=== PATIENT | female | born 1935 | race Caucasian/White ===

== ENCOUNTER 2017-06-11 16:37 | Inpatient (IN) | payer MEDICARE, BC ==
[2017-06-11 17:43] LABS: Hematocrit 40.6 % (36.0-47.0); Mean Platelet Volume 7.3 fL (7.4-10.4); White Blood Cell (WBC) Count 19.4 thou/uL (4.8-10.8)
[2017-06-11 17:50] LABS: Prothrombin Time 13.8 SEC (12.0-14.7)
[2017-06-11 18:05] LABS: Band 8 % (5-11); Neutrophil 57 % (42-75); Reactive Lymphocytes 6 % (0-10)
[2017-06-11 18:06] LABS: ALT (SGPT) 12 U/L (8-55); AST (SGOT) 15 U/L (5-34); Alkaline Phosphatase 114 U/L (40-150); Anion Gap 15 mmol/L (10-20); BUN (Urea Nitrogen) 55 mg/dL (9.8-20.1); Bilirubin, Total 0.3 mg/dL (0.2-1.2); CK (CPK) 115 U/L (29-168); Calc. Creatinine Clearance 0 mL/min (70-130); Calcium 9.7 mg/dL (7.8-10.44); Carbon Dioxide 28 mmol/L (23-31); Chloride 99 mmol/L (98-107); Estimated GFR-MDRD 27; Globulin 4.3 g/dL (2.4-3.5); Lipase 17 U/L (8-78); Protein, Total 8.4 g/dL (6.0-8.3)
[2017-06-11 18:10] LABS: Troponin I Less than 0.010 ng/mL (< 0.028)
[2017-06-11] MEDS ORDERED: Dextrose 50% Abboject 50 ML SYRINGE ONE (18:16)
[2017-06-11] MEDS ORDERED: Nitroglycerin 2% Ointment 1 INCH/1 GM Packet ONE (18:33)
[2017-06-11 18:42] LABS: Bilirubin Negative (Negative); Blood, Urine Negative (Negative); Glucose, Urine (Dipstick) Negative (Negative); Ketone, Urine Negative (Negative); Nitrite Negative (Negative); Protein, Urine (Dipstick) Negative (Neg-Trace); Urobilinogen 0.2 mg/dL (0.2-1.0)
[2017-06-11 18:44] LABS: Bacteria/HPF None Seen HPF (None Seen); Hyaline Casts/LPF 0-3 HYALINE CAST LPF (0-3 Hyaline); RBC/HPF 0-3 HPF (0-3); Squamous Epithelial 0-3 HPF (0-3)
[2017-06-11 18:53] LABS: Yeast-All Forms None Seen HPF (None Seen)
--- NOTE | 2017-06-11 19:05 | RAD ---
PORTABLE CHEST: 06/11/17 HISTORY: Shortness of breath. Chest wall discomfort after PICC line pulled out. The heart size is enlarged. There are atherosclerotic changes of the aorta. The lungs are clear of i nfiltrates. I do not see any signs of any residual PICC line or any soft tissue abnormalities. IMPRESSION: Cardiomegaly. No acute findings. POS: [facility]
[2017-06-11] MEDS ORDERED: traMADol HCl 50 MG TAB ONE ×2 (20:32→20:35)
[2017-06-11] MEDS ORDERED: Morphine 2 MG/ML SYRINGE ONE (21:37)
[2017-06-11] MEDS ORDERED: Nitroglycerin 0.4 MG TAB (25 Tab Bottle) SL PRN (21:42)
[2017-06-11] MEDS ORDERED: Bisacodyl 5 MG TAB PO PRN ×2 (21:42)
[2017-06-11] MEDS ORDERED: Senokot 8.6 MG TAB PO PRN ×2 (21:42)
[2017-06-11] MEDS ORDERED: Milk Of Magnesia 30 ML UDCUP PO PRN (21:42)
[2017-06-11] MEDS ORDERED: Dextrose 50% Abboject 50 ML SYRINGE SLOW IVP PRN (21:42)
[2017-06-11] MEDS ORDERED: cloNIDine 0.1 MG TAB PO PRN (21:42)
[2017-06-11] MEDS ORDERED: Guaifenesin DM 100-10/5 ML UDCUP PO PRN (21:42)
[2017-06-11] MEDS ORDERED: Benzonatate 100 MG CAP PO PRN (21:42)
[2017-06-11] MEDS ORDERED: Mag-Al 1200 mg/1200 mg/30 ML UDCUP PO PRN (21:42)
[2017-06-11] MEDS ORDERED: Loratadine 10 MG TAB PO PRN (21:42)
[2017-06-11] MEDS ORDERED: hydrALAZINE 20 MG/ML VIAL SLOW IVP PRN (21:42)
[2017-06-11] MEDS ORDERED: Calcium Carbonate 500 MG ChewTAB PO PRN (21:42)
[2017-06-11] MEDS ORDERED: Dextrose 5% in Water 1,000 ML IV PRN (21:42)
[2017-06-11] MEDS ORDERED: Potassium Chloride 20 MEQ TAB PO SCH (22:00)
[2017-06-11 22:10] LABS: Troponin I Less than 0.010 ng/mL (< 0.028)
[2017-06-11] MEDS ORDERED: cefTRIAXone\\ROCEPHIN 1 GM, Admixture Fee 1 EACH in Sodium Chloride 0.9% 100 ML IVPB SCH (23:00)
--- NOTE | 2017-06-11 23:00 | NM ---
NUCLEAR MEDICINE LUNG SCAN: 06/11/17 HISTORY: Shortness of breath, chest pain. COMPARISON: A chest x-ray done today. The ventilation portion of the exam was performed using 14.4 millicuries Xenon 133 gas followed by t he perfusion study using 22 millicuries 99m technetium MAA. This shows a normal ventilation pattern. There is no evidence of any segmental or subsegmental defects in either lung field. IMPRESSION: Findings compatible with the low probability of pulmonary embolus. POS: [facility]
[2017-06-11] MEDS ORDERED: cefTRIAXone\\ROCEPHIN 2 GM VIAL ONE ×2 (23:18→23:19)
[2017-06-12 00:03] LABS: Troponin I Less than 0.010 ng/mL (< 0.028)
[2017-06-12] MEDS: traMADol HCl 50 MG TAB PO PRN ×5 (00:32→17:33)
[2017-06-12] MEDS: Acetaminophen 325 MG TAB PO PRN (00:33)
[2017-06-12] MEDS: traZODone HCl 50 MG TAB PO PRN (00:34)
[2017-06-12] MEDS ORDERED: Bisacodyl 5 MG TAB PO PRN (01:17)
[2017-06-12] MEDS ORDERED: cefTRIAXone\\ROCEPHIN 1 GM, Admixture Fee 1 EACH in Sodium Chloride 0.9% 100 ML IVPB SCH (02:00)
[2017-06-12] MEDS: Acetaminophen 500 MG TAB PO SCH ×3 (05:05→21:15)
[2017-06-12] MEDS: Levothyroxine Sodium 50 MCG TAB PO SCH (05:05)
[2017-06-12 06:12] LABS: #Eosinphils 0.1 thou/uL (0.0-0.7); #Lymphocytes 2.1 thou/uL (1.20-3.40); #Monocytes 0.8 thou/uL (0.11-0.59); #Neutrophils 5.2 thou/uL (1.40-6.50); %Basophils 0.4 % (0.0-1.0); %Lymphocytes 25.3 % (21.0-51.0); Hematocrit 33.6 % (36.0-47.0); Mean Platelet Volume 6.8 fL (7.4-10.4); White Blood Cell (WBC) Count 8.3 thou/uL (4.8-10.8)
[2017-06-12 06:41] LABS: Anion Gap 10 mmol/L (10-20); BUN (Urea Nitrogen) 49 mg/dL (9.8-20.1); Calc. Creatinine Clearance 40 mL/min (70-130); Calcium 9.3 mg/dL (7.8-10.44); Carbon Dioxide 31 mmol/L (23-31); Chloride 100 mmol/L (98-107); Estimated GFR-MDRD 36
[2017-06-12] MEDS ORDERED: Clobetasol 0.05% Cream 15 gm Tube TOP SCH (09:00)
--- NOTE | 2017-06-12 09:01 | HP ---
DATE OF ADMISSION: 06/11/2017 PRIMARY CARE PHYSICIAN: Robi Dillon MD Please note that the patient was seen on 06/11/2017, before midnight. CHIEF COMPLAINT: Chest pain and shortness of breath. HISTORY OF PRESENTING ILLNESS: Ms. Ivory is an 81-year-old female with past medical history of celso stolic congestive heart failure, diabetes mellitus, hypertension, coronary artery disease, and chron ic kidney disease who presented to the emergency room with the above-mentioned complaints. History is mainly obtained by the patient herself an extensive electronic medical records have been reviewed . The patient was last admitted to our facility in 01/2017, at which time, she was treated with acu te diastolic congestive heart failure exacerbation. She was discharged on Zaroxolyn at that time. The patient's primary cloth finishing range operator is Dr. Lynch. Ms. Ivory lives alone and presented to the ER today when she states that she woke up with a lot of chest pressure and pain this morning. She has history of chronic back pain and follows up with her primary care physician as well as pain medication clinic. She takes tramadol, Tylenol, as well as N eurontin for what she reports is a neuropathic pain. She does get this kind of pain on and off, but the pain that she had today was different from all the other pains. She describes it as 8/10 in in tensity and located all over her chest, worse in the right side of the chest that the left and she c ould not find any relieving or exacerbating factors. It was associated with some shortness of breat h, but then the patient reports that \\\\"I am always short of breath.\\\\" She felt her symptoms were worse when she would take a deep breath in or lays flat. She denies any fever, chills, or cough. S he denies any orthopnea or PND. She denies any excessive lower extremity swelling. She was recently admitted to [facility] and was treated for a toe infection on the lef t leg and underwent a toe amputation and was sent home with a PICC line to finish the course of anti biotics. She has finished the vancomycin on 06/09/2017, and is still taking metronidazole three bethany es a day orally. She denies any abdominal pain, diarrhea, vomiting, or nausea. She denies any dysu martha, frequency, or urgency. In the emergency room, she was hemodynamically stable upon presentation with blood pressure of 126/7 3, pulse of 80, saturating 95% on room air, and afebrile. Her physical examination was also rather unremarkable except for chronic lower extremity erythema. Her EKG showed left ventricular hypertrop hy, otherwise unremarkable. Her urinalysis was consistent with some leukocyte esterase and wbcs, bu t rest of her examination was unremarkable. She did have elevated WBC count at 19.4 without any lef t shift and given the fact that her urinalysis has pyuria, she was given antibiotics in the ER, name pepe Jacobo. Her initial cardiac enzymes and BNP have been normal as well. She did report that she took extra dose of insulin this morning as her blood sugars were reading kenyetta y high in the 400s. In fact, when she presented to the ER, her blood sugar was 29. She received de xtrose and was treated for this and her blood sugar improved to 117. She was also found to have debi vated D-dimer and underwent a VQ scan, which is low probability for pulmonary embolism. A CT angio was not done given her chronic kidney insufficiency. Now, she is being admitted for chest pain workup as well as treatment for a urinary tract infection. PAST MEDICAL HISTORY: 1. Mild aortic stenosis. 2. Hypertension. 3. Coronary artery disease with stent placement. 4. Hypothyroidism. 5. Dyslipidemia. 6. Diabetes mellitus, type 2. 7. Diabetic neuropathy. 8. Chronic kidney disease, stage 3. 9. Paroxysmal atrial fibrillation. 10. Recent toe amputation on the left second toe for possible osteomyelitis. PAST SURGICAL HISTORY: 1. Left second toe amputation. 2. Appendectomy. 3. Cataract surgery. 4. Left total knee replacement. 5. Hysterectomy. 6. Cardiac catheterization with stent placement. PAST PSYCHIATRIC HISTORY: Anxiety and depression. ALLERGIES: No known medication allergies. FAMILY HISTORY: Significant for breast cancer in her mother. Both of her kids in the 40s. He r daughter in her 40s of breast cancer and her son in his 40s of colon cancer. SOCIAL HISTORY: The patient is and lives by herself in [place], [place]. She ambulates with a rolling walker. She has care provider round the clock. No history of drug, tobacco, or alcohol abu se. CURRENT MEDICATIONS: Include aspirin 81 mg daily, Plavix 75 mg daily, tramadol 100 mg every 6 hours as needed, omeprazole 40 mg daily, potassium chloride 20 mEq daily, Ativan 0.5 mg p.o. b.i.d., Vel daija 24 mcg p.o. b.i.d., gabapentin 600 mg p.o. b.i.d., levothyroxine 175 mcg daily, vitamin D3 of 50 00 daily, ferrous sulfate 65 mg daily, atorvastatin 10 mg daily, Dulcolax as needed, amiodarone 200 mg daily, Zaroxolyn 5 mg weekly then diclofenac eyedrops, eyedrops, Tresiba insulin, insulin 7 01/14 of unknown dose b.i.d., Nitrostat as sublingual as needed, Zofran as needed, metronidazole 500 mg p.o. t.i.d. REVIEW OF SYSTEMS: It is negative except for those mentioned in the history and physical. The following complete review of systems was negative, unless otherwise mentioned in the HPI or belo w: Constitutional: Weight loss or gain, ability to conduct usual activities. Skin: Rash, itching. Eyes: Double vision, pain. ENT/Mouth: Nose bleeding, neck stiffness, pain, tenderness. Cardiovascular: Palpitations, dyspnea on exertion, orthopnea. Respiratory: Shortness of breath, wheezing, cough, hemoptysis, fever or night sweats. Gastrointestinal: Poor appetite, abdominal pain, heartburn, nausea, vomiting, constipation, or diar renetta. Genitourinary: Urgency, frequency, dysuria, nocturia. Musculoskeletal: Pain, swelling. Neurologic/Psychiatric: Anxiety, depression. Allergy/Immunologic: Skin rash, bleeding tendency. LABORATORY EXAMINATION AND DIAGNOSTICS: 1. CBC shows WBCs of 19.4 with 57% neutrophils, otherwise unremarkable. D-dimer 1.16. 2. Serum chemistries show potassium of 3.2, BUN 55, creatinine 1.80, blood sugar improved to 94. L iver enzymes unremarkable. Cardiac enzymes: CK-MB 3.4, troponin less than 0.010. BNP of 79, lipas e 17. 3. Urinalysis showed 11 to 20 wbc's and leukocyte esterase. Chest x-ray by my review has no eviden ce of pulmonary vascular congestion, no congestive heart failure pneumonia. Pulmonary VQ scan is lo w probability for pulmonary embolism. 4. A 12-lead EKG by my review shows left ventricular hypertrophy, heart rate 74 beats per minute wi thout any acute ST or T-wave findings. PHYSICAL EXAMINATION: VITAL SIGNS: Most recently, blood pressure 142/62, pulse of 68, respirations 18, saturating 97% on room air, temperature 98 degrees. GENERAL: Orally, upon presentation, physical examination, in no acute distress, awake, alert, orien samuel x3. She is eating food in the bed and when I saw her and is awake, alert, oriented x3, does not appear sick or toxic. HEENT EXAMINATION: Mucous membrane is moist and pink. No oropharyngeal exudate or erythema. Head is normocephalic, atraumatic. Pupils are equal, reactive to light and accommodation. Extraocular m ovements intact. NECK: Supple without any lymphadenopathy, JVD, or bruit. CHEST: Clear to auscultation without any wheezing, rales, or rhonchi. CARDIOVASCULAR: Rate and rhythm is regular. She has a high pitched systolic murmur at the left hea rt border. ABDOMEN: Soft, nontender, and nondistended. No guarding, rebound, or rigidity. BACK: Shows marked kyphosis of the thoracic spine. EXTREMITIES EXAMINATION: Bilateral lower extremity edema noticed, which is chronic for the patient along with erythema without any warmth. Left second toe is on the bandage. She also has a bandage on her right maguire, which she reports was bleeding earlier in the ER. SKIN: Free of any rashes or bruises, feels warm and dry to touch. PSYCHIATRIC: Alert, oriented to person, normal affect. IMPRESSION AND PLAN: 1. Chest pain. Etiology is unclear at this time. Pulmonary embolism has been ruled out. We will do lower extremity ultrasound for completion sake as the patient was recently hospitalized. No evid ence of pneumonia and the likelihood of acute coronary syndrome is low as well. Given her history o f coronary artery disease, we will continue her aspirin and Plavix and consult Cardiology in the [facility] for further recommendations. She may benefit from a stress test, but we will defer it to the C ardiology for now. The patient's primary cloth finishing range operator is Dr. Lynch. Please note that the patient is somewhat tender on palpation in the entire chest. We will also continue to trend her serial card iac enzymes. 2. Lingual nitroglycerin as needed as well as supplemental oxygen. It is possible that this pain i s referred pain from her neuropathy from which the patient's symptoms greatly. 3. Leukocytosis. The patient may have starting of urinary tract infection as evidenced by pyuria. She does report that she has finished antibiotic with her toe infection and it was reported that he r margins were clear by the [facility] physician. At this time, we will put her on antibiotic with Rocephin to cover for urinary tract infection. Urine cultures and blood cultures have been sen t. These will be followed as well. The patient otherwise appears nontoxic. 4. Hypoxia. The patient had 1 or 2 episodes of low oxygen saturation in the emergency room as low as 90%. Pulmonary embolism has been ruled out. The patient does not appear to be fluid overloaded, but has history of diastolic congestive heart failure. At this time, we will restart her on Zaroxo bernadette at home dosages. Strict I's and O's will be monitored and she will be on fluid restricted heart healthy diet. No other etiology of hypoxia is evident at this time. It can also be anxiety relate d. Supplemental oxygen will be used. We will recheck the chest x-ray in a day or so. 5. Elevated D-dimer as above. Pulmonary embolism has been ruled out with the VQ scan. We will als o perform a lower extremity ultrasound to rule out deep venous thrombosis. 6. History of coronary artery disease, status post stenting. Continue her home medications as abov e. 7. History of chronic diastolic congestive heart failure. The patient appears to be euvolemic at t his time. We will continue with Zaroxolyn weekly dose and will go ahead and consult Cardiology in c ase she needs further diuresis and their opinion. 8. History of hypertension, currently controlled. We will resume her home medications. 9. History of dyslipidemia. Continue with her statin. 10. History of chronic kidney disease. Monitor the creatinine closely and avoid any nephrotoxic me dications. It seems like the patient has been taken off of furosemide in the interim since her last admission here. Her creatinine is slightly bumped up from her baseline. 11. Hypokalemia. We will replace and recheck on a daily basis. 12. Code status: FULL CODE. I have discussed this with the patient and she wants to be fully resu scitated. She reports that she has three great grandkids and wants to be alive for them. 13. Deep venous thrombosis and gastrointestinal prophylaxis. 14. Add p.r.n. medication orders. 15. Paroxysmal atrial fibrillation. At this time, the patient is rate controlled and in normal sin us rhythm. We will continue with her amiodarone at the moment. DISPOSITION: The patient is currently being admitted for chest pain and hypoxia and urinary tract i nfection. Estimated length of stay is at least 2 to 3 midnight. Further management will depend upo n her clinical course.
[2017-06-12] MEDS: Clopidogrel Bisulfate 75 MG TAB PO SCH (09:44)
[2017-06-12] MEDS: Lorazepam 0.5 MG TAB PO SCH ×2 (09:44→20:26)
[2017-06-12] MEDS: Gabapentin 300 MG CAP PO SCH ×2 (09:44→20:26)
[2017-06-12] MEDS: Aspirin 81 mg Enteric Coated Tablet PO SCH (09:45)
[2017-06-12] MEDS: Ferrous Sulfate 325 MG TAB PO SCH (09:45)
[2017-06-12] MEDS: Potassium Chloride 20 MEQ TAB PO SCH (09:45)
[2017-06-12] MEDS: metroNIDAZOLE 500 MG TAB PO SCH ×3 (09:45→20:26)
[2017-06-12] MEDS: Heparin 5,000 UNITS/ML VIAL SC SCH ×3 (09:51→20:27)
--- NOTE | 2017-06-12 09:52 | ULT ---
ULTRASOUND BILATERAL LOWER EXTREMITY VENOUS DOPPLER: HISTORY: Swelling and redness. COMPARISON: 05/03/14. TECHNIQUE: Real-time, simmons scale, color Doppler, and spectral analysis of bilateral lower extremity venous syst em was performed with a linear transducer. Common femoral, femoral, and proximal portion greater sa phenous and deep femoral veins were interrogated as well as the popliteal and posterior tibial veins . FINDINGS: Normal flow, augmentation, and compression. IMPRESSION: No deep vein thrombosis. POS: [facility]
[2017-06-12] MEDS: Lubiprostone 24 MCG CAP PO SCH ×2 (09:59→17:49)
[2017-06-12] MEDS ORDERED: Non-Formulary Item 1 EACH (Ondansetron Hcl [Zofran] 4 MG) PO PRN (12:54)
--- NOTE | 2017-06-12 12:57 | PDOC.PN ---
- Subjective Encounter Start Date: 06/12/17 Encounter Start Time: 12:45 Subjective: c/o burning over torso and nasal congestion. Also c/o generalized pain -: Admitted for UTI and SOB receiving Rocephin and Metronidazole. - Objective Resuscitation Status: Resuscitation Status FULL:Full Resuscitation MAR Reviewed: Yes Vital Signs & Weight: Vital Signs (12 hours) Temp Pulse Resp BP BP Pulse Ox 06/12/17 09:25 97.6 F 72 18 140/66 93 L 06/12/17 04:00 98.3 F 73 18 113/56 L 93 L 06/12/17 01:14 96 Weight Admit Weight 177 lb 8 oz Weight 177 lb 8 oz I&O: 06/11/17 06/12/17 06/13/17 06:59 06:59 06:59 Intake Total 360 Output Total 320 Balance 40 Result Diagrams: 06/12/17 05:38 06/12/17 05:38 Additional Labs: Accuchecks 06/12/17 06/12/17 06/11/17 06:16 00:28 23:28 POC Glucose 150 H 280 H 131 H 06/11/17 06/11/17 21:28 20:40 POC Glucose 82 96 Laboratory Tests 06/11/17 06/11/17 06/11/17 16:54 16:54 16:54 Potassium 3.2 L Creatinine 1.80 H Troponin I Less than 0.010 B-Natriuretic Peptide 79.5 06/11/17 06/11/17 21:33 22:57 Potassium Creatinine Troponin I Less than 0.010 Less than 0.010 B-Natriuretic Peptide EKG Reviewed by me: Yes (Tele - SR in 60's) Phys Exam - Physical Examination Constitutional: NAD HEENT: PERRLA, oral pharynx no lesions Neck: no JVD, supple Respiratory: no wheezing, clear to auscultation bilateral Cardiovascular: RRR Gastrointestinal: soft, non-tender, no distention, positive bowel sounds mild LE edema Musculoskeletal: pulses present Neurological: normal sensation, moves all 4 limbs Psychiatric: A&O x 3 Skin: normal turgor, cap refill <2 seconds Dx/Plan (1) UTI (urinary tract infection) Status: Acute Qualifiers: Urinary tract infection type: acute cystitis Comment: Continue Rocephin 1gm IV daily, await final Ucx results (2) ANUM (acute kidney injury) Code(s): N17.9 - ACUTE KIDNEY FAILURE, UNSPECIFIED Status: Acute Comment: Mild ANUM, avoid nephrotoxic meds and contrast media, repeat creat in am (3) Paresthesias Code(s): R20.2 - PARESTHESIA OF SKIN Status: Chronic Comment: ? etiology, likely psychogenic, Benadryl prn (4) Acute worsening of stage 3 chronic kidney disease Code(s): N18.3 - CHRONIC KIDNEY DISEASE, STAGE 3 (MODERATE) Status: Chronic (5) 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 Code(s): E11.649 - TYPE 2 DIABETES MELLITUS WITH HYPOGLYCEMIA WITHOUT COMA Status: Chronic Comment: Hold home insulin due to hypoglycemia, serial accuchecks, ISS (6) Diabetes type 2, controlled Code(s): E11.9 - TYPE 2 DIABETES MELLITUS WITHOUT COMPLICATIONS Status: Chronic Qualifiers: Diabetes mellitus complication detail: with chronic kidney disease Diabetes mellitus director long term care insulin use: with senior care use Chronic kidney disease stage: stage 3 (moderate) Comment: See above (7) Hypertension Code(s): I10 - ESSENTIAL (PRIMARY) HYPERTENSION Status: Chronic Qualifiers: Hypertension type: essential hypertension Qualified Code(s): I10 - Essential (primary) hypertension (8) Hypothyroidism Code(s): E03.9 - HYPOTHYROIDISM, UNSPECIFIED Status: Chronic Qualifiers: Hypothyroidism type: unspecified Qualified Code(s): E03.9 - Hypothyroidism , unspecified Comment: Resume Levothyroxine 175mcg daily - Plan continue antibiotics, PT/OT, manager social services, out of bed/ambulate Stable overall -: Benadryl 25mg po q6h prn -: Add [place] Nasal mist prn -: Continue Rocephin pending final Ucx results -: Resume home BP meds * AM lab: BMP
[2017-06-12] MEDS ORDERED: Sodium Chloride 0.65% Nasal 44 ML BOT EA NARE PRN (13:06)
[2017-06-12] MEDS: Ondansetron HCl/PF 4 MG/2 ML Vial IVP PRN (13:32)
[2017-06-12] MEDS: diphenhydrAMINE 25 MG CAP PO PRN (13:37)
[2017-06-12] MEDS: HumaLOG 300 UNITS/3 ML VIAL SC PRN ×2 (17:35→21:16)
[2017-06-12] MEDS: Atorvastatin Calcium 10 MG TAB PO SCH (20:26)
[2017-06-12] MEDS: Furosemide 80 MG TAB PO SCH (20:26)
[2017-06-12] MEDS ORDERED: Non-Formulary Item 1 EACH (Omeprazole [Omeprazole] 40 MG) PO SCH (21:00)
[2017-06-12] MEDS: cefTRIAXone\\ROCEPHIN 1 GM, Admixture Fee 1 EACH in Sodium Chloride 0.9% 100 ML IVPB SCH (21:15)
--- NOTE | 2017-06-12 22:07 | CON ---
CARDIOLOGY CONSULTATION NOTE DATE OF CONSULTATION: 06/12/2017 REASON FOR CONSULTATION: Chest pain. PRIMARY DIRECTORY CLERK: Dr. Seth Lynch. HISTORY OF PRESENT ILLNESS: Ms. Ivory is a very pleasant 81-year-old white female who comes to the hospital for chest pain. She has had this pain ever since at least the . There was a phone ca ll in our office on the of this month where she was complaining of the same exact pain she had when that brought her into the hospital, which is the pain that goes in the right and left sides of the chest. It radiated to the back. She was told at that time that she needed to go to the ER. David bell stated in the call that she did not think it was her heart and she did not need to go. Eventually , she showed up on the for evaluation and was admitted. Cardiology is being consulted for this . She does have a history of coronary artery disease. She has had a stent placed on her LAD and britt d to have a second stent placed about a year and a half later for stenosis, right outside of the bradly nt proximally. 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 This happened about a year ago and she had been doing well since. Currently, she is not having any pain. Recently, she was admitted to the [facility] for a toe infection and have to have an a mputation. PAST MEDICAL HISTORY: 1. Hypertension. 2. Hyperlipidemia. 3. Type 2 diabetes. 4. Coronary artery disease as above. 5. Mild aortic stenosis. 6. Hypothyroidism. 7. Chronic kidney disease stage 3. 8. Diabetic neuropathy. 9. Paroxysmal atrial fibrillation. 10. Recent toe amputation. PAST SURGICAL HISTORY: 1. Left second toe amputation recently. 2. Appendectomy. 3. Cataract surgery. 4. Left total knee replacement. 5. Hysterectomy. 6. Cardiac catheterization with stent placements as above. OUTPATIENT MEDICATIONS: Include; 1. Aspirin. 2. Plavix 75 mg a day. 3. Tramadol. 4. Omeprazole. 5. Potassium chloride 20 mEq a day. 6. Ativan. 7. Amitiza 24 mcg p.o. b.i.d. 8. Gabapentin. 9. Levothyroxine 175 mcg a day. 10. Vitamin D3. 11. Ferrous sulfate. 12. Atorvastatin 10 mg a day. 13. Dulcolax p.r.n. 14. Amiodarone 200 mg a day. 15. Zaroxolyn 5 mg a week. 16. Diclofenac. 17. Tresiba. 18. Insulin 75/25. 19. Nitro sublingual. 20. Zofran. 21. Metronidazole. ALLERGIES: HYDROCODONE. SOCIAL HISTORY: No alcohol, tobacco or drugs. FAMILY HISTORY: Noncontributory. REVIEW OF SYSTEMS: A twelve-point review of systems was done and is all negative unless stated in t he history of present illness. PHYSICAL EXAMINATION: VITAL SIGNS: Temperature 97.6, pulse 72, respiration rate 18, satting 93% on room air, blood pressu re 140/66. GENERAL: Awake, alert and oriented x3, in no distress. HEENT: Normocephalic and atraumatic. NECK: Supple. LUNGS: Clear. CARDIOVASCULAR: S1, S2. No S3, S4. No murmurs or rubs. ABDOMEN: Soft. Positive bowel sounds. EXTREMITIES: Lower extremities; 2+ edema with erythematous changes on the lower skin. SKIN: Warm and dry. LABORATORY WORK: Reviewed. CBC with a white count of 19 on admission, hemoglobin of 13, hematocrit 40 and platelet count 376. Coags unremarkable. D-dimer was slightly high. Chemistries on admissi on; creatinine was 1.8 with a glucose of 29, potassium was 3.2. GFR was 27. Troponin has been nega tive x3, undetectable actually and BNP of 79. Albumin of 4.1. UA was yellow, cloudy with moderate leukocyte esterase and 11-20 white blood cells. IMAGING DATA: EKG was reviewed. Chest x-ray was reviewed and showed cardiomegaly with no acute findings. VQ scan showed low probability for pulmonary embolus. Lower extremity venous ultrasound showed no evidence of DVT. ASSESSMENT AND PLAN: 1. Chest pain: Atypical for coronary artery disease; however, she did have similar symptoms before her last need for stent. She is not having an acute coronary syndrome. We will plan on doing furt her risk stratification with a stress test. We will do a nuclear SPECT. Last echocardiogram was do ne in November of this year and she had normal left ventricular function. We are going to assess her l eft ventricular function on stress test. 2. Bilateral lower extremity erythema, suspicious for lower extremity cellulitis. She has had rece nt amputation and had an elevated white count on admission. She is currently being treated with IV antibiotics for possible urinary tract infection. We would continue this for now. Thank you for letting us to participate in the care of your patient. We will continue to follow. F araceli recommendations per results of stress testing.
[2017-06-13] MEDS: traMADol HCl 50 MG TAB PO PRN ×5 (00:32→23:47)
[2017-06-13] MEDS ORDERED: Regadenoson 0.4 MG/5 ML SYRINGE ONE ×2 (03:27→15:11)
[2017-06-13] MEDS: Ondansetron HCl/PF 4 MG/2 ML Vial IVP PRN ×2 (04:46→20:11)
[2017-06-13] MEDS: Acetaminophen 500 MG TAB PO SCH ×3 (04:53→23:47)
[2017-06-13] MEDS: Levothyroxine Sodium 50 MCG TAB PO SCH (04:53)
[2017-06-13 05:19] LABS: Anion Gap 10 mmol/L (10-20); BUN (Urea Nitrogen) 40 mg/dL (9.8-20.1); Calc. Creatinine Clearance 45 mL/min (70-130); Calcium 9.5 mg/dL (7.8-10.44); Carbon Dioxide 30 mmol/L (23-31); Chloride 103 mmol/L (98-107); Estimated GFR-MDRD 42
[2017-06-13] MEDS: Gabapentin 300 MG CAP PO SCH ×2 (11:41→20:10)
[2017-06-13] MEDS: Aspirin 81 mg Enteric Coated Tablet PO SCH (11:42)
[2017-06-13] MEDS: metroNIDAZOLE 500 MG TAB PO SCH ×3 (11:42→20:11)
[2017-06-13] MEDS: Clopidogrel Bisulfate 75 MG TAB PO SCH (11:43)
[2017-06-13] MEDS: Ferrous Sulfate 325 MG TAB PO SCH (11:43)
[2017-06-13] MEDS: Furosemide 80 MG TAB PO SCH ×2 (11:44→20:11)
[2017-06-13] MEDS: Lorazepam 0.5 MG TAB PO SCH ×2 (11:45→20:11)
[2017-06-13] MEDS: Heparin 5,000 UNITS/ML VIAL SC SCH ×3 (11:45→20:12)
[2017-06-13] MEDS ORDERED: traMADol HCl 50 MG TAB PO SCH (11:45)
[2017-06-13] MEDS: Potassium Chloride 20 MEQ TAB PO SCH (11:47)
--- NOTE | 2017-06-13 12:25 | PDOC.PN ---
- Subjective Encounter Start Date: 06/13/17 Encounter Start Time: 12:23 Patient seen and examined. No new complaints. No overnight events. c/o back pain and pain all over after stress test. No N/V chest pain better. No sob. - Objective Resuscitation Status: Resuscitation Status FULL:Full Resuscitation MAR Reviewed: Yes Vital Signs & Weight: Vital Signs (12 hours) Temp Pulse Resp BP Pulse Ox 06/13/17 12:07 98.8 F 73 16 147/66 H 100 06/13/17 04:00 98.2 F 72 18 143/64 H 94 L 06/13/17 03:50 94 L Weight Admit Weight 177 lb 8 oz Weight 178 lb 1.6 oz I&O: 06/12/17 06/13/17 06/14/17 06:59 06:59 06:59 Intake Total 360 1830 Output Total 320 800 Balance 40 1030 Result Diagrams: 06/12/17 05:38 06/13/17 04:29 Additional Labs: Accuchecks 06/13/17 06/13/17 06/12/17 11:57 05:56 20:34 POC Glucose 265 H 212 H 240 H 06/12/17 06/12/17 16:23 11:31 POC Glucose 214 H 273 H Radiology Reviewed by me: Yes Phys Exam - Physical Examination mild distress HEENT: sclera anicteric Neck: supple Respiratory: no wheezing, no rales Cardiovascular: RRR murmur present Gastrointestinal: soft Musculoskeletal: edema present Neurological: non-focal, moves all 4 limbs Psychiatric: normal affect, A&O x 3 Deviation from normal: cellulitic changes present with redness Dx/Plan (1) ANUM (acute kidney injury) Code(s): N17.9 - ACUTE KIDNEY FAILURE, UNSPECIFIED Status: Acute Comment: Mild ANUM, avoid nephrotoxic meds and contrast media, repeat creat in am (2) Acute exacerbation of CHF (congestive heart failure) Code(s): I50.9 - HEART FAILURE, UNSPECIFIED Status: Acute Qualifiers: Congestive heart failure type: diastolic Qualified Code(s): I50.33 - Acute on chronic diastolic (congestive) heart failure (3) Cellulitis of lower extremity Code(s): L03.119 - CELLULITIS OF UNSPECIFIED PART OF LIMB Status: Acute Comment: b/l (4) UTI (urinary tract infection) Status: Acute Qualifiers: Urinary tract infection type: acute cystitis Comment: Continue Rocephin 1gm IV daily, await final Ucx results (5) Coronary artery disease Code(s): I25.10 - ATHSCL HEART DISEASE OF [place] CORONARY ARTERY W/O ANG PCTRS Status: Chronic Qualifiers: Coronary Disease-Associated Artery/Lesion type: [place] artery [place] vs. 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 use Chronic kidney disease stage: stage 3 (moderate) Comment: See above (7) Dyslipidemia Code(s): E78.5 - HYPERLIPIDEMIA, UNSPECIFIED Status: Chronic (8) GERD (gastroesophageal reflux disease) Code(s): K21.9 - GASTRO-ESOPHAGEAL REFLUX DISEASE WITHOUT ESOPHAGITIS Status: Chronic Qualifiers: Esophagitis presence: esophagitis presence not specified Qualified Code(s) : K21.9 - Gastro-esophageal reflux disease without esophagitis (9) Hypertension Code(s): I10 - ESSENTIAL (PRIMARY) HYPERTENSION Status: Chronic Qualifiers: Hypertension type: essential hypertension Qualified Code(s): I10 - Essential (primary) hypertension (10) Obesity (BMI 30.0-34.9) Code(s): E66.9 - OBESITY, UNSPECIFIED Status: Chronic (11) Paroxysmal atrial fibrillation Code(s): I48.0 - PAROXYSMAL ATRIAL FIBRILLATION Status: Chronic Comment: in sinus rhythm now - Plan cont current plan of care, continue antibiotics, DVT proph w/heparin * . continue pain control f/u stress test result Appreciate cardio input. AM labs - BMP continue diuretics.
--- NOTE | 2017-06-13 12:43 | NM ---
NUCLEAR MEDICINE CARDIAC STRSS TEST WITH EJECTION FRACTION: HISTORY: Cardiac cath, stent, atrial fibrillation, hypertension, diabetes. COMPARISON: Nuclear medicine cardiac stress test from 2012. TECHNIQUE: Stress and rest is performed after the intravenous administration of 27 and 10 mCi Technetium 99m se stamibi, respectively. FINDINGS: No evidence of ischemia or scar. Normal wall motion. Normal ejection fraction. Ejection fraction is calculated at 75%. IMPRESSION: Normal nuclear medicine cardiac stress test and ejection fraction. POS: [facility]
[2017-06-13] MEDS ORDERED: Morphine 2 MG/ML SYRINGE SLOW IVP SCH (13:00)
[2017-06-13] MEDS: HumaLOG 300 UNITS/3 ML VIAL SC PRN ×2 (13:12→21:29)
[2017-06-13] MEDS: Lubiprostone 24 MCG CAP PO SCH ×2 (13:13→16:30)
--- NOTE | 2017-06-13 18:08 | PDOC.CTH ---
Cardiology Progress Note - Subjective She is doing well. She was walking around with PT and she felt her right sided chest pain again, better with rest. - Objective Vital Signs Temp Pulse Pulse Pulse Resp BP BP 06/13/17 15:50 98.1 F 72 13 06/13/17 15:40 72 80 128/62 210/83 H 06/13/17 12:12 98.8 F 73 16 06/13/17 12:07 98.8 F 73 16 BP Pulse Ox 06/13/17 15:50 128/62 96 06/13/17 15:40 06/13/17 12:12 06/13/17 12:07 147/66 H 100 Admit Weight 177 lb 8 oz Weight 178 lb 1.6 oz 06/12/17 06/13/17 06/14/17 06:59 06:59 06:59 Intake Total 360 1830 Output Total 320 800 Balance 40 1030 - Physical Examination General/Neuro: alert & oriented x3, NAD Neck: no JVD present Lungs: unlabored respirations Heart: RRR Abdomen: NT/ND Extremities: other: (no edema.) - Telemetry Telemetry Rhythm: NSR - Labs Result Diagrams: 06/12/17 05:38 06/13/17 04:29 Troponin/CKMB CK-MB (CK-2) 3.4 ng/mL (0-6.6) 06/11/17 16:54 Troponin I Less than 0.010 ng/mL (< 0.028) 06/11/17 22:57 - Assessment/Plan 1. Chest pain. 2. CAD, PCI to LAD 1 yr ago. 3. Recent hospitalization for foot ulcer and toe amputation. PLAN: - Normal stress test. - Will start anti anginal as she states this is the same pain as she had when she needed a repeat cath and stent. - May need repeat LHC in the morning. Will leave NPO and discuss with Dr. Lynch how he wants to proceed.
[2017-06-13] MEDS: Atorvastatin Calcium 10 MG TAB PO SCH (20:11)
[2017-06-13] MEDS: cefTRIAXone\\ROCEPHIN 1 GM, Admixture Fee 1 EACH in Sodium Chloride 0.9% 100 ML IVPB SCH (23:48)
[2017-06-14] MEDS: Acetaminophen 500 MG TAB PO SCH ×3 (04:14→21:33)
[2017-06-14] MEDS: traMADol HCl 50 MG TAB PO PRN ×4 (04:14→17:22)
[2017-06-14] MEDS: Levothyroxine Sodium 50 MCG TAB PO SCH (04:15)
[2017-06-14 06:33] LABS: Anion Gap 13 mmol/L (10-20); BUN (Urea Nitrogen) 41 mg/dL (9.8-20.1); Calc. Creatinine Clearance 41 mL/min (70-130); Calcium 9.5 mg/dL (7.8-10.44); Carbon Dioxide 27 mmol/L (23-31); Chloride 102 mmol/L (98-107); Estimated GFR-MDRD 38
[2017-06-14] MEDS: Lorazepam 0.5 MG TAB PO SCH ×2 (08:56→21:32)
[2017-06-14] MEDS: Gabapentin 300 MG CAP PO SCH (08:57)
[2017-06-14] MEDS: metroNIDAZOLE 500 MG TAB PO SCH (08:58)
[2017-06-14] MEDS: Clopidogrel Bisulfate 75 MG TAB PO SCH ×2 (08:58→10:50)
[2017-06-14] MEDS: Lubiprostone 24 MCG CAP PO SCH ×3 (08:58→16:45)
[2017-06-14] MEDS: Aspirin 81 mg Enteric Coated Tablet PO SCH (08:58)
[2017-06-14] MEDS: Ferrous Sulfate 325 MG TAB PO SCH (08:58)
[2017-06-14] MEDS: Heparin 5,000 UNITS/ML VIAL SC SCH ×2 (08:59→21:32)
[2017-06-14] MEDS: Furosemide 80 MG TAB PO SCH (08:59)
[2017-06-14] MEDS: Potassium Chloride 20 MEQ TAB PO SCH ×2 (09:00→10:50)
[2017-06-14] MEDS ORDERED: Furosemide 80 MG TAB PO SCH (09:11)
--- NOTE | 2017-06-14 09:22 | PDOC.PN ---
- Subjective Encounter Start Date: 06/14/17 Encounter Start Time: 09:20 Patient seen and examined. No new complaints. No overnight events. still having burning chest pain across the whole chest and back pain which is similar to her shingles pain. No N/V. No sob reported. Able to walk with PT. - Objective Resuscitation Status: Resuscitation Status FULL:Full Resuscitation MAR Reviewed: Yes Vital Signs & Weight: Vital Signs (12 hours) Temp Pulse Resp BP BP Pulse Ox 06/14/17 08:50 97.8 F 63 20 149/63 H 96 06/14/17 04:20 97.3 F L 72 18 179/92 H 97 06/13/17 23:54 94 L 06/13/17 23:53 98.5 F 72 20 114/55 L 94 L Weight Admit Weight 177 lb 8 oz Weight 177 lb 1.6 oz I&O: 06/13/17 06/14/17 06/15/17 06:59 06:59 06:59 Intake Total 1830 2290 Output Total 800 2160 Balance 1030 130 Result Diagrams: 06/12/17 05:38 06/14/17 05:30 Additional Labs: Accuchecks 06/14/17 06/13/17 06/13/17 05:31 20:37 16:38 POC Glucose 159 H 324 H 144 H 06/13/17 11:57 POC Glucose 265 H Phys Exam - Physical Examination Constitutional: NAD HEENT: sclera anicteric Neck: supple Respiratory: no wheezing, no rales Cardiovascular: RRR systolic murmur present Gastrointestinal: soft Musculoskeletal: no edema Neurological: non-focal Psychiatric: normal affect, A&O x 3 Skin: no rash Dx/Plan (1) ANUM (acute kidney injury) Code(s): N17.9 - ACUTE KIDNEY FAILURE, UNSPECIFIED Status: Acute Comment: Mild ANUM, avoid nephrotoxic meds and contrast media, repeat creat in am (2) Acute exacerbation of CHF (congestive heart failure) Code(s): I50.9 - HEART FAILURE, UNSPECIFIED Status: Acute Qualifiers: Congestive heart failure type: diastolic Qualified Code(s): I50.33 - Acute on chronic diastolic (congestive) heart failure (3) Cellulitis of lower extremity Code(s): L03.119 - CELLULITIS OF UNSPECIFIED PART OF LIMB Status: Acute Comment: b/l (4) UTI (urinary tract infection) Status: Acute Qualifiers: Urinary tract infection type: acute cystitis Comment: Continue Rocephin 1gm IV daily, await final Ucx results (5) Coronary artery disease Code(s): I25.10 - ATHSCL HEART DISEASE OF [place] CORONARY ARTERY W/O ANG PCTRS Status: Chronic Qualifiers: Coronary Disease-Associated Artery/Lesion type: [place] artery [place] vs. transplanted heart: [place] heart Associated angina: without angina Qualified Code(s): I25.10 - Atherosclerotic heart disease of [place] coronary artery without angina pectoris (6) Diabetes type 2, controlled Code(s): E11.9 - TYPE 2 DIABETES MELLITUS WITHOUT COMPLICATIONS Status: Chronic Qualifiers: Diabetes mellitus complication detail: with chronic kidney disease Diabetes mellitus long term acute care registered nurse insulin use: with half-way use Chronic kidney disease stage: stage 3 (moderate) Comment: See above (7) Dyslipidemia Code(s): E78.5 - HYPERLIPIDEMIA, UNSPECIFIED Status: Chronic (8) GERD (gastroesophageal reflux disease) Code(s): K21.9 - GASTRO-ESOPHAGEAL REFLUX DISEASE WITHOUT ESOPHAGITIS Status: Chronic Qualifiers: Esophagitis presence: esophagitis presence not specified Qualified Code(s) : K21.9 - Gastro-esophageal reflux disease without esophagitis (9) Hypertension Code(s): I10 - ESSENTIAL (PRIMARY) HYPERTENSION Status: Chronic Qualifiers: Hypertension type: essential hypertension Qualified Code(s): I10 - Essential (primary) hypertension (10) Obesity (BMI 30.0-34.9) Code(s): E66.9 - OBESITY, UNSPECIFIED Status: Chronic (11) Paroxysmal atrial fibrillation Code(s): I48.0 - PAROXYSMAL ATRIAL FIBRILLATION Status: Chronic Comment: in sinus rhythm now - Plan cont current plan of care, continue antibiotics, PT/OT, DVT proph w/SCDs * . Cr trending up. will stop lasix and metolazone Discussed with Dr Lynhc. will check AM BMP LHC in AM. continue Abx. will dose gabapentin and heparin per GFR. will stop abx cultures remain negative. Started on IVF per cardiology.
[2017-06-14] MEDS ORDERED: Furosemide 40 MG TAB PO SCH ×2 (09:30→14:00)
[2017-06-14] MEDS ORDERED: Communication Order-Pharmacy FS SCH (09:30)
--- NOTE | 2017-06-14 09:40 | PRG ---
DATE OF SERVICE: 06/14/2017 Ms. Ivory is doing well today. She said she is not having any pressure this morning, but she has b een having a pressure across her chest. She said it was just like what she had before her stent was placed in her artery a year ago. PHYSICAL EXAMINATION: VITAL SIGNS: Blood pressure 149/63, pulse 63, it is regular. LUNGS: Clear. CARDIAC: Normal S1, S2. ABDOMEN: Soft, nontender. EXTREMITIES: No edema. PERTINENT LABORATORY: The creatinine is up to 1.35, it was 1.24 yesterday, it was 1.8 on admission. ASSESSMENT: 1. Diastolic heart failure, probably mildly volume depleted. 2. Stage 3 renal failure. 3. Recurrent chest pressure. 4. Recent negative stress test, but has chest pressure she said just like she had before she had a stent placed. PLAN: 1. Stop Lasix. 2. Proceed to cardiac catheterization tomorrow. I discussed risks of stroke, heart attack, iodine allergy, loss of blood supply to the leg or kidney, stent thrombosis, stent restenosis. She underst ands and wishes to proceed.
[2017-06-14] MEDS: HumaLOG 300 UNITS/3 ML VIAL SC PRN ×2 (12:49→17:22)
[2017-06-14] MEDS: Gabapentin 100 MG CAP PO SCH ×2 (14:59→21:32)
[2017-06-14] MEDS: Ondansetron HCl/PF 4 MG/2 ML Vial IVP PRN (14:59)
[2017-06-14] MEDS ORDERED: Gabapentin 300 MG CAP PO SCH (15:00)
[2017-06-14] MEDS: Atorvastatin Calcium 10 MG TAB PO SCH (21:32)
[2017-06-15] MEDS: traMADol HCl 50 MG TAB PO PRN ×4 (02:56→23:28)
[2017-06-15] MEDS: Levothyroxine Sodium 50 MCG TAB PO SCH (05:13)
[2017-06-15] MEDS: Acetaminophen 500 MG TAB PO SCH ×3 (05:13→21:30)
[2017-06-15] MEDS: Clopidogrel Bisulfate 75 MG TAB PO SCH (05:15)
[2017-06-15] MEDS: Aspirin 81 mg Enteric Coated Tablet PO SCH (05:15)
[2017-06-15] MEDS: Ferrous Sulfate 325 MG TAB PO SCH (05:15)
[2017-06-15] MEDS: Lorazepam 0.5 MG TAB PO SCH ×2 (05:16→20:17)
[2017-06-15] MEDS: Gabapentin 100 MG CAP PO SCH ×3 (05:16→20:17)
[2017-06-15] MEDS: Potassium Chloride 20 MEQ TAB PO SCH (05:16)
[2017-06-15] MEDS ORDERED: Sodium Chloride 0.9% 1,000 ML IV SCH ×2 (06:00→09:27)
[2017-06-15] MEDS: Lubiprostone 24 MCG CAP PO SCH ×2 (06:33→16:43)
[2017-06-15 06:39] LABS: Anion Gap 12 mmol/L (10-20); BUN (Urea Nitrogen) 38 mg/dL (9.8-20.1); Calc. Creatinine Clearance 47 mL/min (70-130); Calcium 9.8 mg/dL (7.8-10.44); Carbon Dioxide 30 mmol/L (23-31); Chloride 100 mmol/L (98-107); Estimated GFR-MDRD 43
[2017-06-15 07:07] LABS: Hematocrit 34.6 % (36.0-47.0)
[2017-06-15] MEDS: Heparin 5,000 UNITS/ML VIAL SC SCH (08:38)
[2017-06-15] MEDS ORDERED: Midazolam HCl 2 mg/2 ml Vial ONE (08:46)
[2017-06-15] MEDS ORDERED: Fentanyl 100 MCG/2 ML VIAL ONE (08:46)
[2017-06-15] MEDS ORDERED: Nitroglycerin 0.4 MG TAB (25 Tab Bottle) SL PRN (09:25)
[2017-06-15] MEDS ORDERED: Sodium Chloride 0.9% 200 ML IV SCH (09:30)
[2017-06-15] MEDS ORDERED: Ondansetron ODT 4 MG TAB PO PRN (09:33)
--- NOTE | 2017-06-15 10:56 | PDOC.PN ---
- Subjective Encounter Start Date: 06/15/17 Encounter Start Time: 10:55 Patient seen and examined. No new complaints. No overnight events. still having chest pain. had heart cath this am. No N/V. No abd pain. - Objective Resuscitation Status: Resuscitation Status FULL:Full Resuscitation MAR Reviewed: Yes Vital Signs & Weight: Vital Signs (12 hours) Temp Pulse Resp BP Pulse Ox 06/15/17 07:30 98.1 F 71 18 140/65 95 06/15/17 04:00 98.5 F 68 16 158/70 H 93 L Weight Admit Weight 177 lb 8 oz Weight 180 lb 1.6 oz I&O: 06/14/17 06/15/17 06/16/17 06:59 06:59 06:59 Intake Total 2290 960 Output Total 2160 500 Balance 130 460 Result Diagrams: 06/15/17 06:50 06/15/17 05:52 Additional Labs: Accuchecks 06/15/17 06/14/17 06/14/17 05:40 20:45 17:05 POC Glucose 173 H 213 H 236 H 06/14/17 11:14 POC Glucose 230 H Phys Exam - Physical Examination Constitutional: NAD HEENT: sclera anicteric Neck: supple Respiratory: no wheezing, no rales Cardiovascular: RRR systolic murmur present Gastrointestinal: soft Musculoskeletal: no edema Neurological: non-focal, moves all 4 limbs Psychiatric: normal affect, A&O x 3 Skin: no rash, normal turgor Dx/Plan (1) ANUM (acute kidney injury) Code(s): N17.9 - ACUTE KIDNEY FAILURE, UNSPECIFIED Status: Acute Comment: Mild ANUM, avoid nephrotoxic meds and contrast media, repeat creat in am (2) Acute exacerbation of CHF (congestive heart failure) Code(s): I50.9 - HEART FAILURE, UNSPECIFIED Status: Acute Qualifiers: Congestive heart failure type: diastolic Qualified Code(s): I50.33 - Acute on chronic diastolic (congestive) heart failure (3) Cellulitis of lower extremity Code(s): L03.119 - CELLULITIS OF UNSPECIFIED PART OF LIMB Status: Acute Comment: b/l (4) UTI (urinary tract infection) Status: Acute Qualifiers: Urinary tract infection type: acute cystitis Comment: Continue Rocephin 1gm IV daily, await final Ucx results (5) Coronary artery disease Code(s): I25.10 - ATHSCL HEART DISEASE OF [place] CORONARY ARTERY W/O ANG PCTRS Status: Chronic Qualifiers: Coronary Disease-Associated Artery/Lesion type: [place] artery [place] vs. 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 use Chronic kidney disease stage: stage 3 (moderate) Comment: See above (7) Dyslipidemia Code(s): E78.5 - HYPERLIPIDEMIA, UNSPECIFIED Status: Chronic (8) GERD (gastroesophageal reflux disease) Code(s): K21.9 - GASTRO-ESOPHAGEAL REFLUX DISEASE WITHOUT ESOPHAGITIS Status: Chronic Qualifiers: Esophagitis presence: esophagitis presence not specified Qualified Code(s) : K21.9 - Gastro-esophageal reflux disease without esophagitis (9) Hypertension Code(s): I10 - ESSENTIAL (PRIMARY) HYPERTENSION Status: Chronic Qualifiers: Hypertension type: essential hypertension Qualified Code(s): I10 - Essential (primary) hypertension (10) Obesity (BMI 30.0-34.9) Code(s): E66.9 - OBESITY, UNSPECIFIED Status: Chronic (11) Paroxysmal atrial fibrillation Code(s): I48.0 - PAROXYSMAL ATRIAL FIBRILLATION Status: Chronic Comment: in sinus rhythm now - Plan cont current plan of care, 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 heart cath with mild stenosis and recommend medical management. still having pain most likely chronic neuropathy from shingles. continue pain control. DC home tomorrow if Ok with cardio. will recheck labs in AM Monitor Cr. DC planning
[2017-06-15] MEDS: HumaLOG 300 UNITS/3 ML VIAL SC PRN ×2 (12:27→17:45)
[2017-06-15 13:04] VITALS: BMI 30.7
[2017-06-15] MEDS: Acetaminophen 325 MG TAB PO PRN (16:43)
[2017-06-15] MEDS ORDERED: traMADol HCl 50 MG TAB PO SCH (17:45)
[2017-06-15] MEDS: diphenhydrAMINE 25 MG CAP PO PRN (20:16)
[2017-06-15] MEDS: Atorvastatin Calcium 10 MG TAB PO SCH (20:17)
[2017-06-15] MEDS: traZODone HCl 50 MG TAB PO PRN (23:30)
[2017-06-16] MEDS: Acetaminophen 500 MG TAB PO SCH ×2 (05:04→16:32)
[2017-06-16] MEDS: Levothyroxine Sodium 50 MCG TAB PO SCH (05:04)
[2017-06-16] MEDS: traMADol HCl 50 MG TAB PO PRN (05:04)
[2017-06-16 06:18] LABS: Hematocrit 36.4 % (36.0-47.0)
[2017-06-16 06:39] LABS: Anion Gap 12 mmol/L (10-20); BUN (Urea Nitrogen) 28 mg/dL (9.8-20.1); Calc. Creatinine Clearance 51 mL/min (70-130); Calcium 9.5 mg/dL (7.8-10.44); Carbon Dioxide 28 mmol/L (23-31); Chloride 103 mmol/L (98-107); Estimated GFR-MDRD 47
--- NOTE | 2017-06-16 08:18 | PDOC.PN ---
- Subjective Encounter Start Date: 06/16/17 Encounter Start Time: 08:16 Ms. Saez does not have any new complaints. she continues to note some pain across her chest, but she says she is breathing a lot better. - Objective Resuscitation Status: Resuscitation Status FULL:Full Resuscitation MAR Reviewed: Yes Vital Signs & Weight: Vital Signs (12 hours) Temp Pulse Resp BP Pulse Ox 06/16/17 04:00 98.1 F 57 L 20 146/60 H 94 L Weight Admit Weight 177 lb 8 oz Weight 179 lb 12.8 oz I&O: 06/15/17 06/16/17 06/17/17 06:59 06:59 06:59 Intake Total 960 1080 Output Total 500 Balance 460 1080 Result Diagrams: 06/16/17 05:48 06/16/17 05:48 Additional Labs: Accuchecks 06/16/17 06/15/17 06/15/17 05:32 20:37 17:39 POC Glucose 223 H 161 H 260 H 06/15/17 11:39 POC Glucose 179 H Phys Exam - Physical Examination HEENT: PERRLA Respiratory: no wheezing, no rales, no rhonchi, clear to auscultation bilateral Cardiovascular: RRR, no significant murmur, no rub Gastrointestinal: soft, non-tender, positive bowel sounds Musculoskeletal: no edema Dx/Plan (1) Chest pain Code(s): R07.9 - CHEST PAIN, UNSPECIFIED Status: Acute (2) Coronary artery disease Code(s): I25.10 - ATHSCL HEART DISEASE OF [place] CORONARY ARTERY W/O ANG PCTRS Status: Chronic Qualifiers: Coronary Disease-Associated Artery/Lesion type: [place] artery [place] vs. transplanted heart: [place] heart Associated angina: without angina Qualified Code(s): I25.10 - Atherosclerotic heart disease of [place] coronary artery without angina pectoris (3) Diabetes type 2, controlled Code(s): E11.9 - TYPE 2 DIABETES MELLITUS WITHOUT COMPLICATIONS Status: Chronic Qualifiers: Diabetes mellitus complication detail: with chronic kidney disease Diabetes mellitus snf insulin use: with snf use Chronic kidney disease stage: stage 3 (moderate) Comment: See above (4) Hypertension Code(s): I10 - ESSENTIAL (PRIMARY) HYPERTENSION Status: Chronic Qualifiers: Hypertension type: essential hypertension Qualified Code(s): I10 - Essential (primary) hypertension (5) Obesity (BMI 30.0-34.9) Code(s): E66.9 - OBESITY, UNSPECIFIED Status: Chronic (6) Paroxysmal atrial fibrillation Code(s): I48.0 - PAROXYSMAL ATRIAL FIBRILLATION Status: Chronic Comment: in sinus rhythm now - Plan * Chest pain- this could be musculoskeletal in origin- she says it is tolerable , and would like to go home * CAD- stable- Ranexa was added * HTN- blood pressure is stable * UTI- ruled out * She is stable for discharge home.
[2017-06-16] MEDS ORDERED: Metolazone 5 MG TAB PO SCH (09:00)
[2017-06-16] MEDS: Aspirin 81 mg Enteric Coated Tablet PO SCH (09:05)
[2017-06-16] MEDS: Clopidogrel Bisulfate 75 MG TAB PO SCH (09:05)
[2017-06-16] MEDS: Lubiprostone 24 MCG CAP PO SCH (09:06)
[2017-06-16] MEDS: Ferrous Sulfate 325 MG TAB PO SCH (09:06)
[2017-06-16] MEDS: Gabapentin 100 MG CAP PO SCH (09:06)
[2017-06-16] MEDS: Lorazepam 0.5 MG TAB PO SCH (09:06)
[2017-06-16] MEDS: Potassium Chloride 20 MEQ TAB PO SCH (09:06)
[2017-06-16] MEDS: Furosemide 20 MG TAB PO SCH ×2 (09:06→16:33)
[2017-06-16] MEDS: Acetaminophen 325 MG TAB PO PRN (09:12)
--- NOTE | 2017-06-16 10:07 | PRG ---
DATE OF SERVICE: 06/16/2017 HISTORY: Ms. Ivory is doing fine. No chest pain today. She is up on the chair. PHYSICAL EXAMINATION: VITAL SIGNS: Her blood pressure is extremely variable, it was 146/60 earlier and the most recent wa s 190/77, pulse 70 and is regular. LUNGS: Clear. CARDIAC: Normal S1 and S2. ABDOMEN: Soft, nontender. EXTREMITIES: No edema. ASSESSMENT: 1. Hypertension, labile, seems to be related to volume status, she has been off diuretics for a few days. 2. Recent chest pain, does not appear to be angina. 3. Aortic stenosis, previously mild. PLAN: 1. Okay to discontinue Plavix. 2. Would discontinue Ranexa. 3. Resume diuretic therapy. 4. It is okay to be released home and could do an outpatient echocardiogram and followup. ADDENDUM: The patient is not being discharged on an anticoagulant as she has history of iron defici ency anemia. She has history of atrial fibrillation in the past, but there has been no documentatio n of any atrial fibrillation anytime in the recent past. At this time, it looks like the risk benef it ratio of anticoagulation, the risk would out see the benefit.
[2017-06-16 12:16] VITALS: BP 169/76
[2017-06-16 12:49] VITALS: TEMP 97.4
--- NOTE | 2017-06-16 15:39 | DIS ---
PRIMARY CARE PHYSICIAN: Dr. Dillon. DATE OF ADMISSION: 06/12/2017 DATE OF DISCHARGE: 06/16/2017 DISCHARGE DISPOSITION: Home. PRIMARY DISCHARGE DIAGNOSES: 1. Chest pain. 2. Coronary artery disease. 3. Hypertension, poorly controlled. 4. Acute on chronic kidney disease, resolved. 5. Diabetes mellitus, type 2. 6. Diabetic neuropathy. 7. Hypothyroidism. 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 DISCHARGE MEDICATIONS: Include, tramadol 50 mg q.6 hours as needed, potassium chloride 20 mEq daily , Zofran 4 mg q.6 hours as needed, omeprazole 40 mg at bedtime, Nitrostat 0.4 sublingual p.r.n., Ami tiza 24 mcg twice a day, Ativan 0.5 mg twice daily, levothyroxine 175 mcg daily, insulin 75/25 as di rected, gabapentin 600 mg t.i.d., Lasix 80 mg twice daily, vitamin D3 at 5000 units daily, Dulcolax 10 mg as needed, Lipitor 10 mg daily, aspirin 81 mg daily, amiodarone 200 daily, and Tylenol as need ed. PROCEDURES DONE DURING ADMISSION: The patient had a ventilation-perfusion scan, which was low proba bility for PE. She also had bilateral lower extremity Dopplers, which were negative for deep vein t hrombosis. She had a nuclear stress test, which was negative. She had a cardiac catheterization sh owing some mild coronary artery disease with 30% stenosis of the LAD and its branches as well as the RCA with 30% stenosis. CODE STATUS: FULL CODE. ALLERGIES: HYDROCODONE. HOSPITAL COURSE: Ms. Ivory is a pleasant 81-year-old female that presented to the emergency room w ith complaints of chest pain and shortness of breath. She has a history of chronic pain in the left side of her back and chest that she attributes to postherpetic neuropathy, but she says that the pa in became more extensive and radiating more to the right side and overall the characteristics seemed different and for this reason, she came to the emergency room for evaluation. She was ruled out an d underwent a ventilation-perfusion scan as well as a stress test, which was negative. Her cardiolo gist was consulted and the patient underwent a stress test, which was negative, but due to the persi stence of her symptoms, her electric blanket packer proceeded with a cardiac catheterization. It demonstrated mild diffuse coronary artery disease in the range of approximately 30% to 40% throughout. The left and right-sided circulation as well as its branches, it was not amenable to any invasive measures an d she is going to continue being treated with aggressive medical management. Her chest pain is like ly not attributable to the mild coronary artery disease and instead is likely to be musculoskeletal in origin. She was placed on tramadol as well as gabapentin. Hydrocodone was considered, but she h as a reaction to this in the past and therefore, we will hold off. If additional pain medication as needed then it is possible to increase the dose of her gabapentin. The patient says she already britt s an appointment scheduled with Dr. Dillon on 06/28/2017, and she is to follow up on that day after lawrence cummings. The patient has been taken off Plavix by Dr. Lycnh, as well as the Ranexa, which was star samuel during her hospital stay, but felt that it was not needed.
== END 2017-06-16 14:04 | disposition home or self-care (01) | DRG 74 ==
LOC: ERS 16:37 → 2NO 20:30
PROVIDERS: ADMIT Internal Medicine; ATTEND Internal Medicine
PROC: 4A023N7 Measurement of Cardiac Sampling and Pressure, Left Heart, Percutaneous Approach (ICD-10-PCS; principal; 2017-06-15)
PROC: B2111ZZ Fluoroscopy of Multiple Coronary Arteries using Low Osmolar Contrast (ICD-10-PCS; 2017-06-15)
PROC: B2151ZZ Fluoroscopy of Left Heart using Low Osmolar Contrast (ICD-10-PCS; 2017-06-15)
DX: B02.29 Other postherpetic nervous system involvement (principal); N17.9 Acute kidney failure, unspecified; E11.22 Type 2 diabetes mellitus with diabetic chronic kidney disease; L03.115 Cellulitis of right lower limb; I48.0 Paroxysmal atrial fibrillation; E11.42 Type 2 diabetes mellitus with diabetic polyneuropathy; G62.89 Other specified polyneuropathies; I13.0 Hypertensive heart and chronic kidney disease with heart failure and stage 1 through stage 4 chronic kidney disease, or unspecified chronic kidney disease; I50.32 Chronic diastolic (congestive) heart failure; F32.9 Major depressive disorder, single episode, unspecified; E03.9 Hypothyroidism, unspecified; L03.116 Cellulitis of left lower limb; R07.89 Other chest pain; I25.10 Atherosclerotic heart disease of native coronary artery without angina pectoris; G89.29 Other chronic pain; M54.9 Dorsalgia, unspecified; Z89.422 Acquired absence of other left toe(s); I35.0 Nonrheumatic aortic (valve) stenosis; Z95.5 Presence of coronary angioplasty implant and graft; E78.5 Hyperlipidemia, unspecified; N18.3 Chronic kidney disease, stage 3 (moderate); Z96.652 Presence of left artificial knee joint; F41.9 Anxiety disorder, unspecified; Z79.01 Long term (current) use of anticoagulants; Z79.82 Long term (current) use of aspirin; Z79.4 Long term (current) use of insulin; E87.6 Hypokalemia; R09.02 Hypoxemia; D50.9 Iron deficiency anemia, unspecified; E66.9 Obesity, unspecified; Z68.30 Body mass index [BMI] 30.0-30.9, adult
CPT/HCPCS: 36415; 36416; 71010; 76942; 78452; 78582; 80048; 80053; 81003; 81015; 82553; 83690; 83880; 84484; 85014; 85018; 85025; 85049; 85379; 85610; 85730; 87040; 87086; 93005; 93017; 93454; 93798; 93970; 94760; 96361; 96374; 96375; 99152; 99153; A4216; A9500; A9540; A9558; C1769; G8978-GP-CJ; G8979-GP-CJ; G8980-GP-CJ; G8987-GO-CI; G8988-GO-CI; G8989-GO-CI; J0696; J1644; J2250; J2270; J2405; J2785; J3010; J7050; Q0162

== ENCOUNTER 2017-10-05 17:16 | Inpatient (IN) | payer MEDICARE, BC ==
[2017-10-05 18:30] LABS: #Lymphocytes 1.9 thou/uL (1.20-3.40); #Monocytes 0.9 thou/uL (0.11-0.59); %Basophils 0.2 % (0.0-1.0); %Eosinophils 0.3 % (0.0-10.0); %Lymphocytes 17.4 % (21.0-51.0); %Monocytes 8.1 % (0.0-10.0); Hemoglobin 11.5 g/dL (12.0-16.0); Mean Corpuscular HGB CONC 31.6 g/dL (32.0-36.0); Mean Corpuscular Hemoglobin 28.3 pg (27.0-31.0); Mean Corpuscular Volume 89.5 fl (81.0-99.0); Mean Platelet Volume 6.9 fL (7.4-10.4); Platelet Count 275 thou/uL (130-400); RBC Distribution Width 15.2 % (11.5-14.5); Red Blood Cell (RBC) Count 4.05 mill/uL (4.20-5.40); White Blood Cell (WBC) Count 10.7 thou/uL (4.8-10.8)
[2017-10-05 18:35] LABS: Prothrombin Time 13.1 SEC (12.0-14.7)
--- NOTE | 2017-10-05 18:35 | RAD ---
THREE VIEWS LEFT FOOT: 10/05/17 HISTORY: Ulcer to left fifth toe. Patient needs amputation per report. FINDINGS: There is amputation of the second toe at the level of the metatarsophalangeal joint with amputation o f the middle toe at the level of the proximal phalanx. There is suggestion of osseous destruction inv olving the tuft and distal portion of the distal phalanx of the left small toe suggesting osteomyelit is. 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 No fracture or dislocation is identified. Vascul ar calcifications are visualized. There are plantar calcaneal enthesophytes seen. IMPRESSION: 1. Osteomyelitis distal phalanx left small toe. 2. Amputation of the second and third toes. 3. Scattered degenerative changes left foot. 4. Remote fracture involving the distal portion of the left fourth metatarsal. 5. Vascular calcifications. POS: [facility]
[2017-10-05 18:50] LABS: ALT (SGPT) 17 U/L (8-55); AST (SGOT) 18 U/L (5-34); Albumin 3.9 g/dL (3.4-4.8); Alkaline Phosphatase 64 U/L (40-150); Anion Gap 15 mmol/L (10-20); BUN (Urea Nitrogen) 75 mg/dL (9.8-20.1); Bilirubin, Total 0.5 mg/dL (0.2-1.2); Calc. Creatinine Clearance 0 mL/min (70-130); Carbon Dioxide 35 mmol/L (23-31); Chloride 94 mmol/L (98-107); Estimated GFR-MDRD 27; Globulin 3.2 g/dL (2.4-3.5); Glucose 146 mg/dL (83-110); Magnesium 2.2 mg/dL (1.6-2.6); Protein, Total 7.1 g/dL (6.0-8.3); Sodium 141 mmol/L (136-145)
[2017-10-05 18:56] LABS: CKMB 3.3 ng/mL (0-6.6); Troponin I 0.015 ng/mL (< 0.028)
--- NOTE | 2017-10-05 19:04 | RAD ---
PORTABLE AP CHEST X-RAY 10/05/17 HISTORY: Dyspnea. Ulcer to left fifth toe. Patient needs amputation per report. COMPARISON: 02/11/17. FINDINGS: The cardiac silhouette is magnified by projection but does appear enlarged. Vascular calcifications a re seen in the thoracic aorta. Pulmonary vasculature is within normal limits. Linear densities are ag ain seen in the left mid lung zone likely related to mild scarring. There is mild eventration of the right hemidiaphragm. Lungs are otherwise clear. Osteopenia is present. Remote left fourth rib fractur e is again seen. IMPRESSION: 1. No acute cardiopulmonary process. 2. Mild chronic lung changes. 3. Osteopenia. POS: [facility]
[2017-10-05] MEDS ORDERED: Potassium Chloride 20 MEQ TAB ONE ×2 (19:19→19:30)
[2017-10-05] MEDS ORDERED: traMADol HCl 50 MG TAB ONE ×2 (19:39→19:50)
[2017-10-05] MEDS ORDERED: Ondansetron HCl/PF 4 MG/2 ML Vial IVP PRN (21:17)
[2017-10-05] MEDS ORDERED: Acetaminophen 325 MG TAB PO PRN (21:17)
[2017-10-05] MEDS ORDERED: Ondansetron ODT 4 MG TAB SL PRN (21:17)
[2017-10-05 21:25] VITALS: BMI 32.1
[2017-10-05] MEDS ORDERED: Dextrose 5% in Water 1,000 ML IV PRN (21:29)
[2017-10-05] MEDS ORDERED: Dextrose 50% Abboject 50 ML SYRINGE SLOW IVP PRN (21:29)
[2017-10-05] MEDS ORDERED: Acetaminophen 650 MG Suppository PR PRN (21:29)
[2017-10-05] MEDS ORDERED: Bisacodyl 5 MG TAB PO PRN (21:29)
[2017-10-05] MEDS ORDERED: Nitroglycerin 0.4 MG TAB (25 Tab Bottle) SL SCH (23:45)
[2017-10-05] MEDS ORDERED: Ondansetron ODT 4 MG TAB PO PRN (23:58)
[2017-10-06] MEDS ORDERED: Carvedilol 6.25 MG TAB PO SCH (00:30)
[2017-10-06] MEDS ORDERED: Gabapentin 300 MG CAP PO SCH (00:30)
--- NOTE | 2017-10-06 00:32 | HP ---
PRIMARY CARE PHYSICIAN: Robi Dillon M.D. CHIEF COMPLAINT: Left fifth toe osteomyelitis. HISTORY OF PRESENT ILLNESS: Ms. Ivory is a pleasant 81-year-old lady who was seen at [facility] on 10/05/2017. She was sent to the emergency room by her head of talent management for amputation of the left fifth toe for osteomy elitis. She denies any chest pain. She reports shortness of breath with exertion. She reports that her card iologist, Dr. Lynch has been managing her heart failure and her diuretics and advised her that she m ay need hospitalization if she continues to feel short of breath. She denies any fevers or chills. She denies any nausea or vomiting. She denies any abdominal pain. She reports chronic bilateral lower extremity erythema. REVIEW OF SYSTEMS: The following complete review of systems was negative, unless otherwise mentioned in the HPI or below: Constitutional: Weight loss or gain, ability to conduct usual activities. Sk in: Rash, itching. Eyes: Double vision, pain. ENT/Mouth: Nose bleeding, neck stiffness, pain, te nderness. Cardiovascular: Palpitations, dyspnea on exertion, orthopnea. Respiratory: Shortness of breath, wheezing, cough, hemoptysis, fever or night sweats. Gastrointestinal: Poor appetite, abdom inal pain, heartburn, nausea, vomiting, constipation, or diarrhea. Genitourinary: Urgency, frequenc y, dysuria, nocturia. Musculoskeletal: Pain, swelling. Neurologic/Psychiatric: Anxiety, depressio n. Allergy/Immunologic: Skin rash, bleeding tendency. PAST MEDICAL HISTORY: Significant for mild aortic stenosis, hypertension, coronary artery disease st atus post stent placement, last coronary angiogram in 05/2017 which showed patent stent, hypothyroidi sm, dyslipidemia, diabetes mellitus type 2, diabetic neuropathy, chronic kidney disease stage 3, paro xysmal atrial fibrillation, left second toe amputation for possible osteomyelitis. PAST SURGICAL HISTORY: Significant for left second toe amputation, appendectomy, cataract surgery, l eft total knee replacement, hysterectomy, and cardiac catheterization with stent placement. PSYCHIATRIC HISTORY: Anxiety and depression. FAMILY HISTORY: Breast cancer in her mother. Her daughter in her 40s of breast cancer and a so n in his 40s of colon cancer. SOCIAL HISTORY: Patient denies tobacco use, alcohol use or recreational drug use. CODE STATUS: I discussed her code status. She is FULL CODE. ALLERGIES: No known drug allergies. CURRENT MEDICATIONS: Include Lasix 80 mg 2 times a day, aspirin 81 mg daily, Lipitor 10 mg daily, am iodarone 200 mg daily, omeprazole 40 mg daily, potassium chloride 20 mEq daily, gabapentin 600 mg 3 t imes a day, Amitiza 24 mg 2 times a day, tramadol 200 mg every 6 hours as needed, metolazone 5 mg Wed and Wednesday, Dulcolax 5 mg daily, vitamin D3 of 5000 units daily, Coreg 6.25 mg 2 times a day, Sy nthroid 150 mcg daily, Ativan 0.5 mg at bedtime and Tylenol extra strength 500 mg every 8 hours. PHYSICAL EXAMINATION: GENERAL: Ms. Ivory is awake and alert, not in acute distress. VITAL SIGNS: She is afebrile. Blood pressure is 156/63. Pulse is 67. She is breathing at rate of 20 and saturating 96% on room air. She is obese, with a BMI of 32.1 mg per square meter. EYES: No scleral icterus, no conjunctival pallor. ENT: Moist mucosal membranes, no oropharyngeal erythema or exudates. NECK: Supple, nontender, normal range of movement. Trachea is midline. RESPIRATORY: Accessory muscles of breathing are not active. Chest wall movements are symmetric bila terally. LUNGS: Clear to auscultation, without wheeze, rhonchi or crepitations. CARDIOVASCULAR: S1 and S2 are heard, regular. LUNGS: Peripheral pulses palpable. No carotid bruit, no pericardial rub. ABDOMEN: Soft, nontender, bowel sounds heard, no hepatomegaly, no splenomegaly. NEUROLOGIC: Cranial nerves II-XII are intact. Deep tendon reflexes 2+. MUSCULOSKELETAL: Power is 5/5 in all 4 extremities. She has bilateral lower extremity edema. SKIN: She has bilateral maguire erythema without any raising temperature or tenderness. She also has a n ulcer over the plantar aspect of her left fifth toe. She is missing left second and third toes. LYMPHATIC: No cervical lymphadenopathy. PSYCHIATRIC: Normal mood, normal affect, patient is oriented to person, place, and time. DATABASE: Ms. Ivory's labs and investigations were reviewed. She had a chest x-ray, which does not reveal any pulmonary infiltrates. She also had left foot x-rays, which showed osteomyelitis of the distal phalanx of left small toe. She has a normal white count, normocytic anemia with hemoglobin of 11.5, normal platelet count, INR 1.0, normal sodium of 141, decreased potassium of 3.0, elevated blo od urea nitrogen of 75, elevated creatinine of 1.78, unremarkable liver profile and BNP that is sligh tly elevated at 111.6. Troponin I is normal. ASSESSMENT AND PLAN: Ms. Ivory is a pleasant 81-year-old lady who was seen at [facility] on 10/05/2017. Her problem list includes: 1. Left fifth toe osteomyelitis. She was sent to the emergency room by her head of talent management for surgery i n the morning. She will be admitted to the hospital and kept n.p.o. after midnight. Podiatry Servic e will be requested to follow her while she is in the hospital. 2. Acute on chronic renal failure: She has a creatinine of 1.78, her baseline creatinine appears to be around 1.3. We will continue her medications for now and avoid nephrotoxic medications and follo w creatinine and electrolytes. 3. Congestive heart failure. She is maintaining good oxygen saturations. Lungs are clear as well. However, she wants to see her real estate account executive during this hospitalization for management of congestive heart failure. We will request Cardiology service consultation. 4. Diabetes mellitus. Start Accu-Cheks, insulin sliding scale. 5. Coronary artery disease. This appears to be stable. 6. Hypothyroidism. Continue home medications once clarified. 7. Hypertension: Monitor vital signs, titrate antihypertensives as needed. Many thanks for allowing me to participate in your patient's care. Please feel free to contact me wi th any questions or concerns. LEVEL OF RISK: Moderate. LEVEL OF COMPLEXITY: Moderate.
[2017-10-06] MEDS: traMADol HCl 50 MG TAB PO PRN ×4 (00:45→19:46)
[2017-10-06] MEDS ORDERED: Lorazepam 0.5 MG TAB PO SCH (01:00)
[2017-10-06] MEDS: Vancomycin HCl 1 GM in Premix Bag 1 BAG IVPB SCH (01:40)
[2017-10-06] MEDS: Levothyroxine 150 MCG TAB PO SCH ×2 (04:43→05:23)
[2017-10-06] MEDS: Acetaminophen 500 MG TAB PO SCH ×4 (04:43→21:05)
[2017-10-06 05:28] LABS: #Lymphocytes 2.3 thou/uL (1.20-3.40); #Monocytes 0.8 thou/uL (0.11-0.59); #Neutrophils 4.5 thou/uL (1.40-6.50); %Basophils 0.5 % (0.0-1.0); %Eosinophils 0.6 % (0.0-10.0); %Lymphocytes 29.8 % (21.0-51.0); %Monocytes 10.1 % (0.0-10.0); Hemoglobin 10.5 g/dL (12.0-16.0); Mean Corpuscular HGB CONC 31.7 g/dL (32.0-36.0); Mean Corpuscular Hemoglobin 28.6 pg (27.0-31.0); Mean Corpuscular Volume 90.3 fl (81.0-99.0); Mean Platelet Volume 6.7 fL (7.4-10.4); Platelet Count 213 thou/uL (130-400); Red Blood Cell (RBC) Count 3.66 mill/uL (4.20-5.40); White Blood Cell (WBC) Count 7.6 thou/uL (4.8-10.8)
[2017-10-06 05:48] LABS: Anion Gap 12 mmol/L (10-20); BUN (Urea Nitrogen) 61 mg/dL (9.8-20.1); Calc. Creatinine Clearance 45 mL/min (70-130); Calcium 9.8 mg/dL (7.8-10.44); Carbon Dioxide 35 mmol/L (23-31); Chloride 97 mmol/L (98-107); Estimated GFR-MDRD 39; Glucose 101 mg/dL (83-110); Potassium 3.4 mmol/L (3.5-5.1); Sodium 141 mmol/L (136-145)
[2017-10-06] MEDS: Acetaminophen 325 MG TAB PO PRN (08:29)
[2017-10-06] MEDS: Potassium Chloride 20 MEQ TAB PO SCH (08:30)
[2017-10-06] MEDS: predniSONE 5 MG TAB PO SCH (08:30)
[2017-10-06] MEDS: Aspirin 81 mg Enteric Coated Tablet PO SCH (08:30)
[2017-10-06] MEDS: Atorvastatin Calcium 10 MG TAB PO SCH (08:31)
[2017-10-06] MEDS: Torsemide 20 MG TAB PO SCH ×2 (08:31→21:05)
[2017-10-06] MEDS: Lubiprostone 24 MCG CAP PO SCH ×2 (08:32→17:20)
[2017-10-06] MEDS: Carvedilol 6.25 MG TAB PO SCH ×2 (08:32→19:47)
[2017-10-06] MEDS: hydrALAZINE 25 MG TAB PO SCH ×2 (08:32→19:47)
[2017-10-06] MEDS: Gabapentin 300 MG CAP PO SCH ×3 (08:32→19:47)
[2017-10-06] MEDS: Amiodarone 200 MG TAB PO SCH (08:32)
[2017-10-06] MEDS: Insulin NPH/Reg Insulin Hm 300 UNITS/3 ML VIAL SC SCH (08:32)
[2017-10-06] MEDS ORDERED: Fentanyl 100 MCG/2 ML VIAL ONE ×2 (08:58→10:54)
[2017-10-06] MEDS ORDERED: INSULIN DEGLUDEC 66 UNIT SQ SCH (09:00)
[2017-10-06] MEDS ORDERED: Neomycin-Polymyxin 1 ML AMP ONE (09:06)
[2017-10-06] MEDS ORDERED: Bupivacaine 0.25% HCL 30 ML VIAL ONE (09:06)
[2017-10-06] MEDS ORDERED: Midazolam HCl 2 mg/2 ml Vial ONE (09:51)
[2017-10-06] MEDS ORDERED: Ondansetron HCl/PF 4 MG/2 ML Vial IVP PRN (10:30)
[2017-10-06] MEDS ORDERED: Promethazine HCl 25 MG/ML VIAL IM PRN (10:30)
[2017-10-06] MEDS ORDERED: Promethazine HCl 25 MG/ML VIAL SLOW IVP PRN (10:30)
--- NOTE | 2017-10-06 13:42 | OP ---
DATE OF ADMISSION: 10/05/2017 DATE OF SURGERY: 10/06/2017 PREOPERATIVE DIAGNOSIS: Osteomyelitis, left fifth digit. POSTOPERATIVE DIAGNOSIS: Osteomyelitis, left fifth digit. PROCEDURE: Amputation of left fifth digit at the proximal phalanx. ESTIMATED BLOOD LOSS: Less than 30 mL. HEMOSTASIS: None used. ANESTHESIA: Local was 0.25% Marcaine 3 mL, anesthesia was sedation. SURGEON: Johnny Quinteros D.P.M. DESCRIPTION OF PROCEDURE: The patient was taken to the operating room and placed on the operating ro om table in supine position. After sedation was achieved, a proximal field block of 0.25% Marcaine w as performed. Next, the left lower extremity was scrubbed and draped in the usual surgical manner. Using a sharp towel clamp, the fifth digit was retracted distally. A fish mouth incision was then pe rformed over the proximal phalanx. Using a ace elevator, the soft tissue envelope was freed over the proximal phalanx. Using a bone saw, the phalanx was incised. The digit was removed without contami nation of the surgical field. At this time, a Gram stain culture and sensitivity was taken. After copious lavage with irrigant, there was good hyperemic tissue noted. Skin closure was compl eted with 3-0 nylon suture. After closure, skin flaps had instant capillary filling time. Dressings were applied consisting of Xeroform, 4 x 4 gauze, Estela, and an Pedro Pablo bandage. The patient was fitted with a postoperative shoe and modified to take the pressure off of her great toe. The patient will be readmitted to the hospital for IV antibiotics. The bandages will be changed ster ilely tomorrow for examination of the surgical site. If the patient is stable as per Podiatry, she c ould be discharged to home Wednesday.
--- NOTE | 2017-10-06 13:43 | CON ---
CARDIOLOGY CONSULTATION NOTE DATE OF CONSULTATION: 10/06/2017 REASON FOR CONSULTATION: Congestive heart failure, chronic coronary artery disease, postoperative st atus. HISTORY OF PRESENT ILLNESS: Ms. Ivory is a very pleasant 81-year-old woman with a history of conges tive heart failure and coronary disease. The patient presented to the emergency room. After being s ent to the emergency room, was found to have evidence of osteomyelitis. She underwent successful risa dora this morning with toe removal for osteomyelitis. She has been doing well today after surgery. PAST MEDICAL HISTORY: 1. Coronary artery disease with previous percutaneous therapy as outlined in the chart. 2. Congestive heart failure, systolic, chronic, with some diastolic component (mixed). 3. Mild aortic stenosis. MEDICATIONS PRIOR TO ADMISSION: 1. Aspirin. 2. Potassium. 3. Atorvastatin. 4. Gabapentin. 5. Amiodarone for atrial fibrillation. 6. Hydralazine 7. Metolazone. 8. Torsemide. 9. Carvedilol. REVIEW OF SYSTEMS: Constitutional: No significant weight gain or loss. Vision: No changes. Heari ng: No changes. Pulmonary: No cough or wheezing. Gastrointestinal: No nausea, vomiting or diarrh ea. Skin: No rashes. Neurologic: No unilateral weakness or numbness. Psychiatric: No unusual de pression or anxiety. Hematologic: No unusual bruising. Genitourinary: No burning with urination. PHYSICAL EXAMINATION: VITAL SIGNS: Blood pressure 125/50, pulse 56 and regular. HEENT: Eyes; sclerae nonicteric. Mouth; mucous membranes moist. NECK: Supple. No lymphadenopathy. LUNGS: Clear. No wheezing, rales or rhonchi. CARDIAC: Normal S1, normal S2. I do not hear a murmur, rub or gallop. ABDOMEN: Soft and nontender. EXTREMITIES: No clubbing or cyanosis. There is moderate edema. SKIN: Warm and dry. PSYCHIATRIC: Mood and affect normal. NEUROLOGIC: Grossly normal. PERTINENT LABORATORY DATA: Creatinine is 1.32, potassium is 3.4 and BNP is 111. ASSESSMENT: 1. Congestive heart failure, systolic and diastolic mixed. 2. Paroxysmal atrial fibrillation. 3. Thought to be a poor candidate for long-term anticoagulation. PLAN: 1. Continue aspirin. 2. We will give her a dose of intravenous furosemide x1 extra today and try to mobilize some of the edema in addition to the torsemide. 3. Give extra potassium as well.
--- NOTE | 2017-10-06 13:47 | OP ---
DATE OF SERVICE: 10/06/2017 PRE AND POSTOPERATIVE DAIGNOSIS: Osteomyelitis distal left fifth digit. PROCEDURE: Amputation of left fifth digit at the proximal phalanx. ANESTHESIA: Sedation with local field block. ESTIMATED BLOOD LOSS: Estimated blood loss was less than 30 mL. There were no complications of the procedure was noted. Good healthy bone was noted at the time of r esection. Culture and sensitivity with Gram stain was sent. The patient to be readmitted to the hospital.
[2017-10-06] MEDS ORDERED: Furosemide 100 MG/10 ML VIAL SLOW IVP SCH (15:00)
--- NOTE | 2017-10-06 15:13 | RAD ---
LEFT FOOT THREE VIEWS: History: Amputation of the left toe. FINDINGS/IMPRESSION: Comparison made with exam of the previous day. Interval changes of amputation of the left fifth toe at the base of proximal phalanx has occurred sin ce the previous day's exam. The remainder of the exam is otherwise stable. POS: [facility]
[2017-10-06] MEDS ORDERED: Ondansetron HCl/PF 4 MG/2 ML Vial ONE (16:25)
[2017-10-06] MEDS ORDERED: Potassium Chloride 20 MEQ TAB PO SCH (17:00)
[2017-10-06] MEDS: HumaLOG 300 UNITS/3 ML VIAL SC PRN (17:20)
[2017-10-06] MEDS: Lorazepam 0.5 MG TAB PO SCH (19:47)
--- NOTE | 2017-10-06 23:39 | PDOC.PN ---
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 several years ag -: ago - Objective Resuscitation Status: Resuscitation Status FULL:Full Resuscitation Vital Signs & Weight: Vital Signs (12 hours) Temp Pulse Resp BP Pulse Ox 10/06/17 20:00 97.6 F 62 20 146/75 H 93 L 10/06/17 19:47 63 10/06/17 16:00 97.9 F 63 20 148/70 H 96 10/06/17 12:28 97.8 F 57 L 16 125/50 L 97 I&O: 10/05/17 10/06/17 10/07/17 06:59 06:59 06:59 Intake Total 680 Balance 680 Result Diagrams: 10/06/17 05:17 10/08/17 13:57 Additional Labs: Accuchecks 10/06/17 10/06/17 10/06/17 21:18 16:46 11:24 POC Glucose 200 H 296 H 117 H 10/06/17 10/06/17 05:15 00:53 POC Glucose 113 H 286 H Phys Exam - Physical Examination Constitutional: NAD HEENT: PERRLA, moist MMs Neck: no nodes Respiratory: no wheezing, no rales, no rhonchi Cardiovascular: RRR, no significant murmur, no rub Gastrointestinal: soft, no distention, positive bowel sounds Musculoskeletal: no edema, pulses present Neurological: moves all 4 limbs Dx/Plan - Plan * osteomyelitis * apprec podiatry c/s * continue IV abx hx CHF, monitor status obesity, stable neuropathic pain, chronic and longstanding * t/c o/p capsaicin cream, pain mgmt c/s * d/w patient at length that narcotic initiation right now for neuropathic pain may not be the ideal option diet: sodium restricted, cardiac activity: oob as nadine dvt ppx Review of Systems - Review of Systems Constitutional: weakness - Medications/Allergies Allergies/Adverse Reactions: Allergies Allergy/AdvReac Type Severity Reaction Status Date / Time hydrocodone [From [place]] Allergy Verified 10/08/17 00:28 Medications: Current Medications Acetaminophen (Tylenol) 650 mg PO Q4H PRN PRN Reason: Headache/Fever or Pain Last Admin: 10/06/17 08:29 Dose: 650 mg Acetaminophen (Tylenol) 650 mg [place] Q4H PRN PRN Reason: Headache/Fever or Pain Acetaminophen (Tylenol) 500 mg PO Q8HR [facility] Last Admin: 10/06/17 21:05 Dose: 500 mg Amiodarone HCl (Cordarone) 200 mg PO DAILY [facility] Last Admin: 10/06/17 08:32 Dose: 200 mg Aspirin (Ecotrin) 81 mg PO DAILY [facility] Last Admin: 10/06/17 08:30 Dose: 81 mg Atorvastatin Calcium (Lipitor) 10 mg PO DAILY [facility] Last Admin: 10/06/17 08:31 Dose: 10 mg Bisacodyl (Dulcolax) 10 mg PO DAILYPRN PRN PRN Reason: Constipation Carvedilol (Coreg) 6.25 mg PO BID [facility] Last Admin: 10/06/17 19:47 Dose: 6.25 mg Cholecalciferol (Vitamin D3) 5,000 units PO DAILY [facility] Last Admin: 10/06/17 08:30 Dose: 5,000 units Dextrose/Water (Dextrose 50%) 25 gm SLOW IVP PRN PRN PRN Reason: Hypoglycemia Diclofenac Sodium (Voltaren) 100 mg PO QIDPRN PRN PRN Reason: Pain Gabapentin (Neurontin) 600 mg PO TID [facility] Last Admin: 10/06/17 19:47 Dose: 600 mg Glucagon (Glucagon) 1 mg IM PRN PRN PRN Reason: Hypoglycemia Hydralazine HCl (Apresoline) 25 mg PO BID [facility] Last Admin: 10/06/17 19:47 Dose: 25 mg Dextrose/Water (D5w) 1,000 mls @ 0 mls/hr IV .Q0M PRN; As Directed PRN Reason: Hypoglycemia Vancomycin HCl 1 gm/ Device 200 mls @ 200 mls/hr IVPB Q24HR@0200 [facility] Last Admin: 10/06/17 01:40 Dose: 200 mls Insulin Human Isoph/Insulin Regular (Humulin 70/30) 45 units SC DAILY [facility] Last Admin: 10/06/17 08:32 Dose: Not Given Insulin Human Lispro (Humalog) 0 units SC .MILD SLIDING SCALE PRN PRN Reason: Mild Correctional Scale Last Admin: 10/06/17 17:20 Dose: 4 unit Levothyroxine Sodium (Synthroid) 150 mcg PO 0600 [facility] Last Admin: 10/06/17 05:23 Dose: 150 mcg Lorazepam (Ativan) 0.5 mg PO HS [facility] Last Admin: 10/06/17 19:47 Dose: 0.5 mg Lubiprostone (Amitiza) 24 mcg PO BID[facility] Last Admin: 10/06/17 17:20 Dose: 24 mcg Metolazone (Zaroxolyn) 5 mg PO TuFr@0900 [facility] Miscellaneous Medication (Pharmacy To Dose) 0 each IVPB PRN PRN PRN Reason: [facility] Pharmacy to Dose Nitroglycerin (Nitrostat) 0.4 mg SL Q5MIN [facility] Insulin Degludec [ Tresiba Flextouch U- 100] 66 Unit 66 unit SQ QAM [facility] Ondansetron HCl (Zofran Odt) 4 mg PO Q6H PRN PRN Reason: Nausea/Vomiting Pantoprazole Sodium (Protonix) 40 mg PO HS [facility] Last Admin: 10/06/17 19:47 Dose: 40 mg Potassium Chloride (K-Dur) 20 meq PO DAILY [facility] Last Admin: 10/06/17 08:30 Dose: 20 meq Prednisone (Prednisone) 10 mg PO DAILY [facility] Last Admin: 10/06/17 08:30 Dose: 10 mg Sodium Chloride (Flush - Normal Saline) 10 ml IVF Q12HR [facility] Last Admin: 10/06/17 19:47 Dose: 10 ml Sodium Chloride (Flush - Normal Saline) 10 ml IVF PRN PRN PRN Reason: Saline Flush Torsemide (Demadex) 40 mg PO BID [facility] Last Admin: 10/06/17 21:05 Dose: 40 mg Tramadol HCl (Ultram) 100 mg PO Q6H PRN PRN Reason: Pain Last Admin: 10/06/17 19:46 Dose: 100 mg
[2017-10-07] MEDS: Vancomycin HCl 1 GM in Premix Bag 1 BAG IVPB SCH (01:48)
[2017-10-07] MEDS: Acetaminophen 500 MG TAB PO SCH ×3 (05:47→20:54)
[2017-10-07] MEDS: Levothyroxine 150 MCG TAB PO SCH (05:47)
[2017-10-07] MEDS: traMADol HCl 50 MG TAB PO PRN (08:40)
[2017-10-07] MEDS: Potassium Chloride 20 MEQ TAB PO SCH (08:41)
[2017-10-07] MEDS: Gabapentin 300 MG CAP PO SCH ×3 (08:41→20:54)
[2017-10-07] MEDS: Acetaminophen 325 MG TAB PO PRN (08:41)
[2017-10-07] MEDS: Atorvastatin Calcium 10 MG TAB PO SCH (08:42)
[2017-10-07] MEDS: Carvedilol 6.25 MG TAB PO SCH (08:42)
[2017-10-07] MEDS: hydrALAZINE 25 MG TAB PO SCH ×2 (08:42→20:57)
[2017-10-07] MEDS: Aspirin 81 mg Enteric Coated Tablet PO SCH (08:43)
[2017-10-07] MEDS: Amiodarone 200 MG TAB PO SCH (08:43)
[2017-10-07] MEDS: predniSONE 5 MG TAB PO SCH (08:43)
[2017-10-07] MEDS: Torsemide 20 MG TAB PO SCH ×2 (08:51→21:04)
[2017-10-07] MEDS: Lubiprostone 24 MCG CAP PO SCH ×2 (08:52→17:33)
[2017-10-07] MEDS: Insulin NPH/Reg Insulin Hm 300 UNITS/3 ML VIAL SC SCH (11:25)
--- NOTE | 2017-10-07 15:55 | RAD ---
CHEST TWO VIEWS: 10/07/17 HISTORY: Dyspnea. COMPARISON: 10/05/17. FINDINGS: The cardiac silhouette and pulmonary vasculature are unremarkable. Mediastinum is midline with aortic calcification. Calcified granulomata are consistent with healed granulomatous disease. There is no c onfluent air space consolidation, pneumothorax or pleural fluid evident. IMPRESSION: 1. Atherosclerosis. 2. Chronic type findings are stable. POS: [facility]
[2017-10-07] MEDS ORDERED: Furosemide 100 MG/10 ML VIAL SLOW IVP SCH (19:30)
[2017-10-07] MEDS ORDERED: Enoxaparin Sodium 40 MG/0.4 ML SYRINGE SC SCH (19:30)
[2017-10-07] MEDS ORDERED: Potassium Chloride 20 MEQ TAB PO SCH (19:30)
[2017-10-07] MEDS ORDERED: Metolazone 5 MG TAB PO SCH (19:30)
[2017-10-07] MEDS: Bisacodyl 5 MG TAB PO PRN (20:53)
[2017-10-07] MEDS: Lorazepam 0.5 MG TAB PO SCH (20:54)
[2017-10-07] MEDS ORDERED: Carvedilol 3.125 MG TAB PO SCH (21:00)
--- NOTE | 2017-10-07 21:06 | PRG ---
DATE OF SERVICE: 10/07/2017 Ms. Ivory is more short of breath tonight. She says she is very short of breath even with minimal exertion. Her oxygen levels 97%. No chest pa in. PHYSICAL EXAMINATION: VITAL SIGNS: Blood pressure 116/58, pulse 60s. LUNGS: Clear. CARDIAC: Normal S1, normal S2. ABDOMEN: Soft, nontender. EXTREMITIES: Moderate edema. ASSESSMENT: Shortness of breath, probably related to diastolic congestive heart failure. PLAN: 1. Give extra diuretic therapy. 2. Lea catheter placed and monitor urine.
--- NOTE | 2017-10-07 23:19 | PDOC.PN ---
- Subjective Encounter Start Date: 10/07/17 Encounter Start Time: 16:00 Subjective: nsg notes rev ,ilana ovn, still c/o neuropathic pain not sufficiently control -: led on a c hronic basis - Objective Resuscitation Status: Resuscitation Status FULL:Full Resuscitation Vital Signs & Weight: Vital Signs (12 hours) Temp Pulse Resp BP BP Pulse Ox 10/07/17 20:57 71 124/65 10/07/17 20:00 98.9 F 71 22 H 124/65 95 10/07/17 16:00 116/58 L 10/07/17 12:00 110/62 I&O: 10/06/17 10/07/17 10/08/17 06:59 06:59 06:59 Intake Total 680 800 Balance 680 800 Result Diagrams: 10/06/17 05:17 10/08/17 13:57 Additional Labs: Accuchecks 10/07/17 10/07/17 10/07/17 21:03 16:53 11:55 POC Glucose 162 H 202 H 214 H 10/07/17 06:10 POC Glucose 193 H Phys Exam - Physical Examination Constitutional: NAD HEENT: PERRLA, sclera anicteric Respiratory: no wheezing, no rales, no rhonchi coarseness throughout Cardiovascular: RRR, no significant murmur, no rub Gastrointestinal: soft, no distention, positive bowel sounds Musculoskeletal: no edema, pulses present Neurological: moves all 4 limbs Dx/Plan - Plan * osteomyelitis s/p amputation * apprec podiatry c/s * continue IV abx hx CHF, monitor status obesity, stable neuropathic pain, chronic and longstanding * t/c o/p capsaicin cream, o/p pain mgmt c/s * d/w patient at length that narcotic initiation right now for neuropathic pain may not be the ideal option diet: sodium restricted, cardiac activity: oob as nadine dvt ppx Review of Systems - Medications/Allergies Allergies/Adverse Reactions: Allergies Allergy/AdvReac Type Severity Reaction Status Date / Time hydrocodone [From [place]] Allergy Verified 10/08/17 00:28 Medications: Current Medications Acetaminophen (Tylenol) 650 mg PO Q4H PRN PRN Reason: Headache/Fever or Pain Last Admin: 10/07/17 08:41 Dose: 650 mg Acetaminophen (Tylenol) 650 mg NH Q4H PRN PRN Reason: Headache/Fever or Pain Acetaminophen (Tylenol) 500 mg PO Q8HR [facility] Last Admin: 10/08/17 13:10 Dose: 500 mg Amiodarone HCl (Cordarone) 200 mg PO DAILY [facility] Last Admin: 10/08/17 07:50 Dose: 200 mg Aspirin (Ecotrin) 81 mg PO DAILY [facility] Last Admin: 10/08/17 07:51 Dose: 81 mg Atorvastatin Calcium (Lipitor) 10 mg PO DAILY [facility] Last Admin: 10/08/17 07:50 Dose: 10 mg Bisacodyl (Dulcolax) 10 mg PO DAILYPRN PRN PRN Reason: Constipation Last Admin: 10/07/17 20:53 Dose: 10 mg Cholecalciferol (Vitamin D3) 5,000 units PO DAILY [facility] Last Admin: 10/08/17 08:09 Dose: 5,000 units Dextrose/Water (Dextrose 50%) 25 gm SLOW IVP PRN PRN PRN Reason: Hypoglycemia Diclofenac Sodium (Voltaren) 100 mg PO QIDPRN PRN PRN Reason: Pain Last Admin: 10/07/17 11:24 Dose: 100 mg Enoxaparin Sodium (Lovenox) 40 mg SC 0900 [facility] Last Admin: 10/08/17 07:51 Dose: 40 mg Gabapentin (Neurontin) 600 mg PO TID [facility] Last Admin: 10/08/17 14:37 Dose: 600 mg Glucagon (Glucagon) 1 mg IM PRN PRN PRN Reason: Hypoglycemia Hydralazine HCl (Apresoline) 25 mg PO BID [facility] Last Admin: 10/08/17 07:51 Dose: Not Given Dextrose/Water (D5w) 1,000 mls @ 0 mls/hr IV .Q0M PRN; As Directed PRN Reason: Hypoglycemia Vancomycin HCl 1.25 gm/ Sodium (Chloride) 250 mls @ 166.667 mls/hr IVPB 0200 [facility] Last Admin: 10/08/17 02:20 Dose: 250 mls Insulin Human Isoph/Insulin Regular (Humulin 70/30) 45 units SC DAILY [facility] Last Admin: 10/08/17 07:54 Dose: 45 unit Insulin Human Lispro (Humalog) 0 units SC .MILD SLIDING SCALE PRN PRN Reason: Mild Correctional Scale Last Admin: 10/06/17 17:20 Dose: 4 unit Levothyroxine Sodium (Synthroid) 150 mcg PO 0600 [facility] Last Admin: 10/08/17 06:29 Dose: 150 mcg Lorazepam (Ativan) 0.5 mg PO HS [facility] Last Admin: 10/07/17 20:54 Dose: 0.5 mg Lubiprostone (Amitiza) 24 mcg PO BID[facility] Last Admin: 10/08/17 08:41 Dose: 24 mcg Miscellaneous Medication (Pharmacy To Dose) 0 each IVPB PRN PRN PRN Reason: [facility] Pharmacy to Dose Nitroglycerin (Nitrostat) 0.4 mg SL Q5MIN [facility] Ondansetron HCl (Zofran Odt) 4 mg PO Q6H PRN PRN Reason: Nausea/Vomiting Pantoprazole Sodium (Protonix) 40 mg PO HS [facility] Last Admin: 10/07/17 20:55 Dose: 40 mg Potassium Chloride (K-Dur) 20 meq PO DAILY [facility] Last Admin: 10/08/17 07:50 Dose: 20 meq Prednisone (Prednisone) 10 mg PO DAILY [facility] Last Admin: 10/08/17 07:50 Dose: 10 mg Sodium Chloride (Flush - Normal Saline) 10 ml IVF Q12HR [facility] Last Admin: 10/08/17 07:52 Dose: 10 ml Sodium Chloride (Flush - Normal Saline) 10 ml IVF PRN PRN PRN Reason: Saline Flush Torsemide (Demadex) 40 mg PO BID [facility] Last Admin: 10/08/17 07:52 Dose: Not Given Tramadol HCl (Ultram) 100 mg PO Q6H PRN PRN Reason: Pain Last Admin: 10/08/17 13:10 Dose: 100 mg
[2017-10-08 01:33] LABS: Vancomycin, Trough 12.7 ug/mL
[2017-10-08] MEDS: Vancomycin HCl 1.25 GM in Sodium Chloride 0.9% 250 ML 250 ML IVPB SCH (02:20)
[2017-10-08] MEDS: Acetaminophen 500 MG TAB PO SCH ×3 (06:28→22:09)
[2017-10-08] MEDS: Levothyroxine 150 MCG TAB PO SCH (06:29)
[2017-10-08] MEDS: predniSONE 5 MG TAB PO SCH (07:50)
[2017-10-08] MEDS: Atorvastatin Calcium 10 MG TAB PO SCH (07:50)
[2017-10-08] MEDS: Amiodarone 200 MG TAB PO SCH (07:50)
[2017-10-08] MEDS: Potassium Chloride 20 MEQ TAB PO SCH (07:50)
[2017-10-08] MEDS: hydrALAZINE 25 MG TAB PO SCH ×2 (07:51→22:04)
[2017-10-08] MEDS: Enoxaparin Sodium 40 MG/0.4 ML SYRINGE SC SCH (07:51)
[2017-10-08] MEDS: Aspirin 81 mg Enteric Coated Tablet PO SCH (07:51)
[2017-10-08] MEDS: traMADol HCl 50 MG TAB PO PRN ×3 (07:52→18:32)
[2017-10-08] MEDS: Torsemide 20 MG TAB PO SCH ×2 (07:52→22:09)
[2017-10-08] MEDS: Insulin NPH/Reg Insulin Hm 300 UNITS/3 ML VIAL SC SCH (07:54)
[2017-10-08] MEDS: Gabapentin 300 MG CAP PO SCH ×3 (08:10→22:03)
[2017-10-08] MEDS: Lubiprostone 24 MCG CAP PO SCH ×2 (08:41→16:39)
[2017-10-08] MEDS ORDERED: Metolazone 5 MG TAB PO SCH (09:00)
--- NOTE | 2017-10-08 09:21 | PRG ---
DATE OF SERVICE: 10/07/2017 She is postop day 1. SUBJECTIVE FINDINGS: The patient was seen sitting in her chair eating lunch. The patient states she had some pain last night, but doing well today. The patient states she has been short of breath and reports they are monitoring her for this at this time. OBJECTIVE FINDINGS: The patient's bandages were intact. They are dry and clean. After removal of t he bandages the patient's amputation site left fifth digit shows suture to be intact. Minimal ecchym osis at the surgical site. Capillary filling time is instant to the skin flaps. No signs of drainag e. No swelling. ASSESSMENT AND PLAN: 1. The patient had sterile dressings reapplied the same as postoperatively in the operating room. 2. The patient from a podiatry standpoint was cleared to go home pending admitting doctor's evaluati on for discharge. 3. The patient was instructed to follow up with me next Wednesday for bandage change and reexamination . She was instructed to call for any questions or problems at any time.
[2017-10-08] MEDS ORDERED: Furosemide 40 MG/4 ML VIAL SLOW IVP SCH (10:15)
[2017-10-08] MEDS ORDERED: Potassium Chloride 20 MEQ TAB PO SCH (10:15)
--- NOTE | 2017-10-08 12:12 | PRG ---
DATE OF SERVICE: 10/08/2017 SUBJECTIVE: Ms. Ivory says she is breathing better today. She received intravenous Lasix last nigh t, but unfortunately the urine output was not recorded. She does not know the urine output as a Fole y catheter is in place. PHYSICAL EXAMINATION: VITAL SIGNS: Her blood pressure 116/60, pulse 62. LUNGS: Clear. CARDIAC: Normal S1, S2. EXTREMITIES: The edema is moderate. ASSESSMENT: 1. Diastolic congestive heart failure. 2. History of renal insufficiency. PLAN: 1. Give her one more dose of intravenous furosemide. 2. Try to record the urine output today.
[2017-10-08 14:40] LABS: Anion Gap 14 mmol/L (10-20); BUN (Urea Nitrogen) 59 mg/dL (9.8-20.1); Calc. Creatinine Clearance 34 mL/min (70-130); Calcium 10.2 mg/dL (7.8-10.44); Carbon Dioxide 33 mmol/L (23-31); Chloride 97 mmol/L (98-107); Estimated GFR-MDRD 28; Glucose 181 mg/dL (83-110); Potassium 4.8 mmol/L (3.5-5.1); Sodium 139 mmol/L (136-145)
--- NOTE | 2017-10-08 14:43 | PQF ---
CLINICAL DOCUMENTATION IMPROVEMENT CLARIFICATION FORM: ICD-10 Updated PLEASE DO AN ADDENDUM TO THE PROGRESS NOTE WITH ANY DOCUMENTATION UPDATES OR ADDITIONS AND CARRY THROUGH TO DC SUMMARY. THANK YOU. DATE: 10/08/17 ATTN: Dr. Sky Please exercise your independent, professional judgment in responding to the clarification form. Clinical indicators are provided on the bottom of this form for your review Please check appropriate box(s): HEART FAILURE: A. ACUITY [ ] Acute [ x ] Acute on Chronic [ ] Chronic [ ] Other diagnosis [ ] Unable to determine In addition, please specify: Present on Admission (POA): [ x ] Yes [ ] No [ ] Unable to determine For continuity of documentation, please document condition throughout progress notes and discharge summary. Thank You. CLINICAL INDICATORS - SIGNS / SYMPTOMS / LABS CARDIOLOGY CONSULT 10/06: EXTREMITIES: THERE IS MODERATE EDEMA CONGESTIVE HEART FAILURE, SYSTOLIC & DIASTOLIC MIXED WE WILL FRONT OFFICE ADMINISTRATOR HER A DOSE OF INTRAVENOUS FUROSEMIDE X1 EXTRA TODAY.. CARDIOLOGY PN 10/07: SHORTNESS OF BREATH, PROBABLY R/T DIASTOLIC CHF GIVE EXTRA DIURETIC THERAPY CARDIOLOGY PN 10/08: DIASTOLIC CHF GIVE HER ONE MORE DOSE OF INTRAVENOUS FUROSEMIDE RISKS: H&P: SHE HAS BILATERAL LOWER EXTREMITY EDEMA. CONGESTIVE HRT FAILURE; DM, CAD. HTN, ACUTE ON CHRONIC RENAL FAILURE. TREATMENTS: CPOE 10/05: DEMADEX 40 MG PO BID CPOE 10/07: LASIX 80MG SLOW IVP NOW CPOE 10/08: LASIX 40MG SLOW IVP NOW Thank you, Emelina (This form is maintained as a part of the permanent medical record) 2015 [employer]. All Rights Reserved Emelina Machado RN, BSN [email or web address] Office: [phone] [facility]
--- NOTE | 2017-10-08 15:20 | PDOC.PN ---
- Subjective Encounter Start Date: 10/08/17 Encounter Start Time: 15:15 Subjective: nsg notes rev, no new issues ovn, no new c/o overall feels -: better feels her neuropathic pain (chronic) is also better. - Objective Resuscitation Status: Resuscitation Status FULL:Full Resuscitation Vital Signs & Weight: Vital Signs (12 hours) Temp Pulse Resp BP BP Pulse Ox 10/08/17 08:00 98.2 F 62 18 116/61 95 10/08/17 07:51 62 116/61 10/08/17 04:00 74 180/75 H I&O: 10/07/17 10/08/17 10/09/17 06:59 06:59 06:59 Intake Total 680 800 Balance 680 800 Result Diagrams: 10/06/17 05:17 10/08/17 13:57 Additional Labs: Accuchecks 10/08/17 10/08/17 10/07/17 11:09 05:31 21:03 POC Glucose 95 183 H 162 H 10/07/17 16:53 POC Glucose 202 H Phys Exam - Physical Examination Constitutional: NAD HEENT: PERRLA, moist MMs, sclera anicteric Neck: no nodes Respiratory: no wheezing, no rales, no rhonchi Cardiovascular: RRR, no significant murmur, no rub Gastrointestinal: soft, no distention, positive bowel sounds Gilbert draining yellow urine, bag with approx 1.5L Psychiatric: normal affect, A&O x 3 Dx/Plan - Plan * osteomyelitis s/p amputation * apprec podiatry c/s * continue IV abx hx CHF, monitor status * apprec card c/s * continue with diuresis obesity, stable neuropathic pain, chronic and longstanding * improved, no change in regimen diet: sodium restricted, cardiac activity: oob as nadine dvt ppx discharge planning once diuresed and gilbert removed Review of Systems - Medications/Allergies Allergies/Adverse Reactions: Allergies Allergy/AdvReac Type Severity Reaction Status Date / Time hydrocodone [From [place]] Allergy Verified 10/08/17 00:28 Medications: Current Medications Acetaminophen (Tylenol) 650 mg PO Q4H PRN PRN Reason: Headache/Fever or Pain Last Admin: 10/07/17 08:41 Dose: 650 mg Acetaminophen (Tylenol) 650 mg HI Q4H PRN PRN Reason: Headache/Fever or Pain Acetaminophen (Tylenol) 500 mg PO Q8HR [facility] Last Admin: 10/08/17 13:10 Dose: 500 mg Amiodarone HCl (Cordarone) 200 mg PO DAILY [facility] Last Admin: 10/08/17 07:50 Dose: 200 mg Aspirin (Ecotrin) 81 mg PO DAILY [facility] Last Admin: 10/08/17 07:51 Dose: 81 mg Atorvastatin Calcium (Lipitor) 10 mg PO DAILY [facility] Last Admin: 10/08/17 07:50 Dose: 10 mg Bisacodyl (Dulcolax) 10 mg PO DAILYPRN PRN PRN Reason: Constipation Last Admin: 10/07/17 20:53 Dose: 10 mg Cholecalciferol (Vitamin D3) 5,000 units PO DAILY [facility] Last Admin: 10/08/17 08:09 Dose: 5,000 units Dextrose/Water (Dextrose 50%) 25 gm SLOW IVP PRN PRN PRN Reason: Hypoglycemia Diclofenac Sodium (Voltaren) 100 mg PO QIDPRN PRN PRN Reason: Pain Last Admin: 10/07/17 11:24 Dose: 100 mg Enoxaparin Sodium (Lovenox) 40 mg SC 0900 [facility] Last Admin: 10/08/17 07:51 Dose: 40 mg Gabapentin (Neurontin) 600 mg PO TID [facility] Last Admin: 10/08/17 14:37 Dose: 600 mg Glucagon (Glucagon) 1 mg IM PRN PRN PRN Reason: Hypoglycemia Hydralazine HCl (Apresoline) 25 mg PO BID [facility] Last Admin: 10/08/17 07:51 Dose: Not Given Dextrose/Water (D5w) 1,000 mls @ 0 mls/hr IV .Q0M PRN; As Directed PRN Reason: Hypoglycemia Vancomycin HCl 1.25 gm/ Sodium (Chloride) 250 mls @ 166.667 mls/hr IVPB 0200 [facility] Last Admin: 10/08/17 02:20 Dose: 250 mls Insulin Human Isoph/Insulin Regular (Humulin 70/30) 45 units SC DAILY [facility] Last Admin: 10/08/17 07:54 Dose: 45 unit Insulin Human Lispro (Humalog) 0 units SC .MILD SLIDING SCALE PRN PRN Reason: Mild Correctional Scale Last Admin: 10/06/17 17:20 Dose: 4 unit Levothyroxine Sodium (Synthroid) 150 mcg PO 0600 [facility] Last Admin: 10/08/17 06:29 Dose: 150 mcg Lorazepam (Ativan) 0.5 mg PO HS [facility] Last Admin: 10/07/17 20:54 Dose: 0.5 mg Lubiprostone (Amitiza) 24 mcg PO BID-[facility] Last Admin: 10/08/17 08:41 Dose: 24 mcg Miscellaneous Medication (Pharmacy To Dose) 0 each IVPB PRN PRN PRN Reason: [facility] Pharmacy to Dose Nitroglycerin (Nitrostat) 0.4 mg SL Q5MIN [facility] Ondansetron HCl (Zofran Odt) 4 mg PO Q6H PRN PRN Reason: Nausea/Vomiting Pantoprazole Sodium (Protonix) 40 mg PO [facility] Last Admin: 10/07/17 20:55 Dose: 40 mg Potassium Chloride (K-Dur) 20 meq PO DAILY [facility] Last Admin: 10/08/17 07:50 Dose: 20 meq Prednisone (Prednisone) 10 mg PO DAILY [facility] Last Admin: 10/08/17 07:50 Dose: 10 mg Sodium Chloride (Flush - Normal Saline) 10 ml IVF Q12HR [facility] Last Admin: 10/08/17 07:52 Dose: 10 ml Sodium Chloride (Flush - Normal Saline) 10 ml IVF PRN PRN PRN Reason: Saline Flush Torsemide (Demadex) 40 mg PO BID [facility] Last Admin: 10/08/17 07:52 Dose: Not Given Tramadol HCl (Ultram) 100 mg PO Q6H PRN PRN Reason: Pain Last Admin: 10/08/17 13:10 Dose: 100 mg
[2017-10-08] MEDS ORDERED: Milk Of Magnesia 30 ML UDCUP PO PRN (15:36)
[2017-10-08] MEDS: HumaLOG 300 UNITS/3 ML VIAL SC PRN (18:28)
[2017-10-08] MEDS: Lorazepam 0.5 MG TAB PO SCH (22:04)
[2017-10-08] MEDS: Bisacodyl 5 MG TAB PO PRN (22:13)
[2017-10-09] MEDS: traMADol HCl 50 MG TAB PO PRN (02:33)
[2017-10-09] MEDS: Vancomycin HCl 1.25 GM in Sodium Chloride 0.9% 250 ML 250 ML IVPB SCH (02:34)
[2017-10-09] MEDS: Levothyroxine 150 MCG TAB PO SCH (06:06)
[2017-10-09] MEDS: Acetaminophen 500 MG TAB PO SCH (06:06)
[2017-10-09] MEDS: Gabapentin 300 MG CAP PO SCH (08:51)
[2017-10-09] MEDS: Amiodarone 200 MG TAB PO SCH (08:51)
[2017-10-09] MEDS: Aspirin 81 mg Enteric Coated Tablet PO SCH (08:51)
[2017-10-09] MEDS: Atorvastatin Calcium 10 MG TAB PO SCH (08:52)
[2017-10-09] MEDS: predniSONE 5 MG TAB PO SCH (08:52)
[2017-10-09] MEDS: hydrALAZINE 25 MG TAB PO SCH (08:52)
[2017-10-09] MEDS: Enoxaparin Sodium 40 MG/0.4 ML SYRINGE SC SCH (08:53)
[2017-10-09] MEDS: Potassium Chloride 20 MEQ TAB PO SCH (08:53)
[2017-10-09] MEDS: Lubiprostone 24 MCG CAP PO SCH (08:53)
[2017-10-09] MEDS: Insulin NPH/Reg Insulin Hm 300 UNITS/3 ML VIAL SC SCH (08:54)
[2017-10-09] MEDS: Torsemide 20 MG TAB PO SCH (08:55)
[2017-10-09 11:56] VITALS: BP 124/67; TEMP 97.3
[2017-10-09] MEDS ORDERED: Carvedilol 25 MG TAB PO SCH (17:00)
--- NOTE | 2017-10-12 08:28 | DIS ---
DISCHARGE DIAGNOSES: 1. Osteomyelitis, status post amputation. 2. Neuropathic pain, chronic. 3. History of congestive heart failure, stable. BRIEF SUMMARY OF HOSPITAL COURSE: This is an 82-year-old female with a known history of CHF, obesity, neuropathic pain who initially presented with a chief complaint of osteomyelitis. Please see the original history and physical for full details surrounding admission. Patient was sent in by her drill press operator for metal for amputation of the fifth toe due to osteomyelitis that was noted on outpatient basis. In addition, patient was noted to have shortness of breath with exertion. Given her known history of cardiac disease including CHF, patient's automotive design layout drafter was consulted for further evaluation prior to procedure. She was ultimately cleared for surgery and underwent amputation for osteomyelitis and was tolerated this procedure well. She has required some additional doses of IV diuresis during this hospitalization and at the time of discharge, her respiratory status is somewhat improved compared to when she initially presented. Remainder of her chronic medical issues were stable during this hospitalization. CONSULTATIONS: 1. Podiatry. 2. Cardiology. MEDICATION RECONCILIATION: Please see the EMR for full details. The patient will need to continue on her home regimen. The following additions have been made to her home regimen including aspirin 81 mg p.o. daily, carvedilol 3.125 mg p.o. b.i.d., gabapentin t.i.d. DISCHARGE CONDITION: At the time of discharge, the patient is hemodynamically stable. She is tolerating her baseline diet. She is able to work with physical therapy. The patient was seen and examined on the day of discharge. DISCHARGE INSTRUCTIONS: The patient is asked to follow up closely with her outpatient team including her primary care provider, drill press operator for metal, and automotive design layout drafter. The patient is able to complete teach back. Thank you for asking me to care for the patient. Greater than 30 minutes spent coordinating discharge for the patient. PATTI
--- NOTE | 2017-11-06 14:21 | EKG ---
Test Reason : DIAGNOSING PURPOSES Blood Pressure : / mmHG Vent. Rate : 067 BPM Atrial Rate : 067 BPM P-R Int : 186 ms QRS Dur : 080 ms QT Int : 442 ms P-R-T Axes : 022 -09 076 degrees QTc Int : 467 ms Normal sinus rhythm Left ventricular hypertrophy with repolarization abnormality Abnormal ECG Confirmed by LYNSEY Evans, CRAIG ([id number]), content editor CHARO PAZ ([id number] on 11/06/2017 2:21:12 PM Referred By: Confirmed By:CRAIG MENON M.D.
== END 2017-10-09 11:57 | disposition home or self-care (01) | DRG 616 ==
LOC: ERS 17:16 → T4-B 20:50
PROVIDERS: ADMIT Internal Medicine; ATTEND Internal Medicine
PROC: 0Y6Y0Z1 Detachment at Left 5th Toe, High, Open Approach (ICD-10-PCS; principal; 2017-10-06)
DX: E11.69 Type 2 diabetes mellitus with other specified complication (principal); I50.43 Acute on chronic combined systolic (congestive) and diastolic (congestive) heart failure; N17.9 Acute kidney failure, unspecified; M86.9 Osteomyelitis, unspecified; I13.0 Hypertensive heart and chronic kidney disease with heart failure and stage 1 through stage 4 chronic kidney disease, or unspecified chronic kidney disease; E11.22 Type 2 diabetes mellitus with diabetic chronic kidney disease; I48.0 Paroxysmal atrial fibrillation; E11.42 Type 2 diabetes mellitus with diabetic polyneuropathy; I35.0 Nonrheumatic aortic (valve) stenosis; I25.10 Atherosclerotic heart disease of native coronary artery without angina pectoris; Z95.5 Presence of coronary angioplasty implant and graft; E03.9 Hypothyroidism, unspecified; E78.5 Hyperlipidemia, unspecified; N18.3 Chronic kidney disease, stage 3 (moderate); Z96.652 Presence of left artificial knee joint; F41.9 Anxiety disorder, unspecified; F32.9 Major depressive disorder, single episode, unspecified; Z79.82 Long term (current) use of aspirin; Z89.422 Acquired absence of other left toe(s); E66.9 Obesity, unspecified; Z68.32 Body mass index [BMI] 32.0-32.9, adult; E87.6 Hypokalemia
CPT/HCPCS: 36415; 36416; 71045; 71046; 80048; 80053; 80202; 82553; 83605; 83735; 83880; 84484; 85025; 85610; 87070; 87077; 87186; 87205; 88305; 88311; 93005; 96360; A4216; J1650; J1940; J2250; J2405; J3010; J3370; J7050; S0020

== ENCOUNTER 2017-10-24 08:19 | Inpatient (IN) | payer MEDICARE, BC ==
[2017-10-24] MEDS ORDERED: Lidocaine 1% PF 5 ML VIAL ONE (09:08)
[2017-10-24] MEDS ORDERED: Adacel (T-DAP) 0.5 ML VIAL ONE ×2 (09:09→11:32)
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
[2017-10-24] MEDS ORDERED: Lidocaine 1% w/Epinephrine 1:100K 20 ML VIAL ONE (09:12)
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
[2017-10-24] MEDS ORDERED: Morphine 10 MG/ML VIAL ONE ×2 (09:20→11:11)
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
[2017-10-24 09:27] LABS: #Eosinphils 0.1 thou/uL (0.0-0.7); #Neutrophils 14.6 thou/uL (1.40-6.50); %Basophils 0.1 % (0.0-1.0); %Eosinophils 0.4 % (0.0-10.0); %Lymphocytes 6.1 % (21.0-51.0); %Monocytes 5.7 % (0.0-10.0); %Neutrophils 87.6 % (42.0-75.0); Hemoglobin 11.1 g/dL (12.0-16.0); Mean Corpuscular HGB CONC 32.2 g/dL (32.0-36.0); Mean Corpuscular Hemoglobin 28.5 pg (27.0-31.0); Mean Corpuscular Volume 88.3 fl (81.0-99.0); Mean Platelet Volume 6.8 fL (7.4-10.4); Platelet Count 234 thou/uL (130-400); RBC Distribution Width 15.1 % (11.5-14.5); Red Blood Cell (RBC) Count 3.89 mill/uL (4.20-5.40); White Blood Cell (WBC) Count 16.6 thou/uL (4.8-10.8)
[2017-10-24 09:29] LABS: INR-International Normal Ratio 1.1; PTT 27.7 SEC (22.9-36.1); Prothrombin Time 13.8 SEC (12.0-14.7)
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
[2017-10-24 09:47] LABS: ALT (SGPT) 23 U/L (8-55); AST (SGOT) 36 U/L (5-34); Albumin 3.6 g/dL (3.4-4.8); Alkaline Phosphatase 60 U/L (40-150); Anion Gap 16 mmol/L (10-20); BUN (Urea Nitrogen) 71 mg/dL (9.8-20.1); Bilirubin, Total 0.5 mg/dL (0.2-1.2); CK (CPK) 292 U/L (29-168); Calc. Creatinine Clearance 0 mL/min (70-130); Carbon Dioxide 30 mmol/L (23-31); Chloride 93 mmol/L (98-107); Estimated GFR-MDRD 21; Globulin 2.6 g/dL (2.4-3.5); Glucose 184 mg/dL (83-110); Lipase 36 U/L (8-78); Potassium 3.1 mmol/L (3.5-5.1); Protein, Total 6.2 g/dL (6.0-8.3); Sodium 136 mmol/L (136-145)
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
[2017-10-24 09:50] LABS: Troponin I 0.022 ng/mL (< 0.028)
[2017-10-24] MEDS ORDERED: Dextrose 50% Abboject 50 ML SYRINGE SLOW IVP PRN ×3 (10:51→11:40)
[2017-10-24] MEDS ORDERED: Dextrose 5% in Water 1,000 ML IV PRN ×3 (10:51→11:40)
[2017-10-24] MEDS ORDERED: traMADol HCl 50 MG TAB PO PRN (10:58)
[2017-10-24] MEDS ORDERED: hydrALAZINE 20 MG/ML VIAL SLOW IVP PRN (10:58)
[2017-10-24] MEDS ORDERED: Ondansetron HCl/PF 4 MG/2 ML Vial IVP PRN (10:58)
[2017-10-24] MEDS ORDERED: Lorazepam 2 MG/ML VIAL ONE (11:11)
[2017-10-24 11:32] LABS: Bilirubin Negative (Negative); Blood, Urine Negative (Negative); Clarity CLEAR (Clear); Glucose, Urine (Dipstick) Negative (Negative); Leukocyte Negative (Negative); Nitrite Negative (Negative); Protein, Urine (Dipstick) Negative (Neg-Trace); Specific Gravity, Urine 1.016 (1.002-1.036); Urobilinogen 0.2 mg/dL (0.2-1.0)
[2017-10-24 11:49] LABS: RBC/HPF 0-3 HPF (0-3); Squamous Epithelial 0-3 HPF (0-3); WBC/HPF 0-3 HPF (0-3)
[2017-10-24 11:50] LABS: Bacteria/HPF 1+ HPF (None Seen); Hyaline Casts/LPF NONE SEEN LPF (0-3 Hyaline)
[2017-10-24] MEDS ORDERED: Acetaminophen 500 MG TAB PO SCH (12:00)
[2017-10-24 12:46] LABS: Troponin I 0.019 ng/mL (< 0.028)
[2017-10-24 12:55] LABS: CKMB 14.9 ng/mL (0-6.6)
[2017-10-24] MEDS: Sodium Chloride 0.9% 1,000 ML IV SCH ×3 (13:54→23:19)
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
[2017-10-24] MEDS ORDERED: ISOVUE-370 76%-LOCM 1 ML ONE (14:40)
[2017-10-24 14:47] VITALS: BMI 34.8
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
[2017-10-24 15:36] LABS: Troponin I 0.021 ng/mL (< 0.028)
[2017-10-24 15:38] LABS: CKMB 13.8 ng/mL (0-6.6); Critical Call CKMBM RESULT DECREASING
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
--- NOTE | 2017-10-24 18:04 | ULT ---
CAROTID ULTRASOUND WITH GALLARDO SCALE AND DOPPLER DUPLEX COLOR FLOW IMAGING SPECTRAL ANALYSIS PERFORMED: CLINICAL INDICATION: Syncope. FINDINGS: There is mild scattered atherosclerotic calcification of the carotid arteries. PEAK SYSTOLIC VELOCITY (CM/S): Right CCA 84 Left CCA 95 Right ICA 104 Left ICA 77 There is antegrade flow within the visualized bilateral vertebral arteries. IMPRESSION: 1. No hemodynamically significant stenosis of the right internal carotid artery. 2. No hemodynamically significant stenosis of the left internal carotid artery. POS: [facility]
[2017-10-24] MEDS: traMADol HCl 50 MG TAB PO PRN (18:34)
[2017-10-24] MEDS: Acetaminophen 1,000 MG in Premix Bag 1 BAG IVPB SCH ×2 (20:22→23:18)
[2017-10-24] MEDS: HumaLOG 300 UNITS/3 ML VIAL SC PRN (20:45)
[2017-10-24] MEDS ORDERED: Famotidine 20 MG TAB PO SCH (21:00)
[2017-10-24] MEDS ORDERED: Famotidine/PF 20 mg/2ml Vial SLOW IVP SCH (21:00)
[2017-10-24] MEDS ORDERED: FLU VACC TS2017-18 (>65YR) 0.5 ML SYRINGE IM ONE (21:00)
[2017-10-24] MEDS ORDERED: Prevnar 13-Val Conj/PF 0.5 ML SYRINGE IM ONE (21:00)
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
[2017-10-25] MEDS: Sodium Chloride 0.9% 1,000 ML IV SCH ×2 (05:17→09:47)
[2017-10-25] MEDS: Acetaminophen 1,000 MG in Premix Bag 1 BAG IVPB SCH (05:17)
[2017-10-25 05:54] LABS: #Basophils 0.1 thou/uL (0.0-0.2); #Lymphocytes 1.6 thou/uL (1.20-3.40); #Monocytes 1.1 thou/uL (0.11-0.59); %Basophils 0.7 % (0.0-1.0); %Eosinophils 0.5 % (0.0-10.0); %Lymphocytes 18.4 % (21.0-51.0); %Monocytes 12.9 % (0.0-10.0); %Neutrophils 67.6 % (42.0-75.0); Hemoglobin 9.3 g/dL (12.0-16.0); Mean Corpuscular HGB CONC 31.3 g/dL (32.0-36.0); Mean Corpuscular Hemoglobin 28.2 pg (27.0-31.0); Mean Corpuscular Volume 90.1 fl (81.0-99.0); Mean Platelet Volume 6.5 fL (7.4-10.4); Platelet Count 176 thou/uL (130-400); RBC Distribution Width 15.3 % (11.5-14.5); Red Blood Cell (RBC) Count 3.29 mill/uL (4.20-5.40); White Blood Cell (WBC) Count 8.9 thou/uL (4.8-10.8)
[2017-10-25 06:25] LABS: Anion Gap 12 mmol/L (10-20); BUN (Urea Nitrogen) 57 mg/dL (9.8-20.1); Calc. Creatinine Clearance 45 mL/min (70-130); Calcium 8.5 mg/dL (7.8-10.44); Carbon Dioxide 31 mmol/L (23-31); Chloride 100 mmol/L (98-107); Estimated GFR-MDRD 35; Glucose 133 mg/dL (83-110); Magnesium 2.1 mg/dL (1.6-2.6); Phosphorus 3.2 mg/dL (2.3-4.7); Potassium 3.3 mmol/L (3.5-5.1); Sodium 140 mmol/L (136-145)
[2017-10-25] MEDS ORDERED: Potassium Chloride 20 MEQ TAB PO ONE (08:00)
[2017-10-25] MEDS: Acetaminophen 500 MG TAB PO SCH ×3 (08:03→21:06)
[2017-10-25] MEDS: predniSONE 5 MG TAB PO SCH (08:03)
[2017-10-25] MEDS ORDERED: CEFAZOLIN/Water 2 GM/20 ML SYRINGE SLOW IVP SCH (08:30)
--- NOTE | 2017-10-25 09:45 | CT ---
PRELIMINARY REPORT/[facility]/EMERGENCY AFTER HOURS PROCEDURE: EXAM: CT Head Without Intravenous Contrast CLINICAL HISTORY: 81 years old, female; Condition or disease; Other: F/u sah TECHNIQUE: Axial computed tomography images of the head/brain without intravenous contrast. COMPARISON: CT Brain WO Con 2017-10-24 08:41 FINDINGS: Brain: Minimal left parietal subarachnoid/intraparenchymal hemorrhage images 23-24 is grossly stable. No significant white matter disease. No edema. Ventricles: Unremarkable. No ventriculomegaly. Bones/joints: Unremarkable. No acute fracture. Soft tissues: Unremarkable. Sinuses: Unremarkable as visualized. No acute sinusitis. Mastoid air cells: Unremarkable as visualized. No mastoid effusion. IMPRESSION: Stable minimal left parietal subarachnoid/intraparenchymal hemorrhage Thank you for allowing us to participate in the care of your patient. Dictated and Authenticated by: Mg Brewster MD 10/25/2017 4:35 AM Central Time ([place] & Page) FINAL REPORT NONCONTRAST HEAD CT: COMPARISON: 10/24/17. HISTORY: Evaluate traumatic subarachnoid hemorrhage. FINDINGS: This report is in agreement with the preliminary report by [facility]. Redemonstration of stable left parie caroline subarachnoid hemorrhage versus a cortical-based hemorrhage/hematoma. No new areas of hemorrhage are appreciated. Previously noted hyperdensity along the right frontal extraaxial space is less evid ent on the current examination. POS: MAGY
--- NOTE | 2017-10-25 09:46 | PRG ---
DATE OF SERVICE: 10/25/2017 NEPHROLOGY PROGRESS NOTE SUBJECTIVE: Patient was seen and examined at bedside and overnight events noted. Patient denies any shortness of breath or chest pain or palpitation. No history of nausea or vomiting or diarrhea or f ever or chills or cramps. OBJECTIVE: GENERAL: This is a well-built female in no apparent distress. VITAL SIGNS: Temperature 98.0, pulse 71, respiratory rate 18, blood pressure 121/38. HEENT: Atraumatic, normocephalic. Oral mucosa is moist. Bruises present in the right forehead. NECK: Supple. CARDIOVASCULAR: S1, S2 heard. Rate and rhythm regular. RESPIRATORY: Clear to auscultation. GASTROINTESTINAL: Abdomen is soft. MUSCULOSKELETAL: No tenderness. No edema. DERMATOLOGIC: No skin rash. NEUROLOGIC: Alert and awake and oriented x3. No focal neurologic deficits. Moving all the extremiti es. PSYCHIATRIC: Mood and affect normal. LABORATORY DATA: Potassium is 3.3, creatinine is 1.4 from 2.2 yesterday. ASSESSMENT AND PLAN: 1. Acute kidney injury, chronic kidney disease stage 3. Renal function is much better with hydratio n. Continue hydration as tolerated. Agree with surgery, mild nephrology risk for surgery. 2. Hypokalemia. Replace and monitor given surgery. 3. Anemia. 4. Edema, controlled. 5. Hypertension. 6. Cardiorenal syndrome. 7. Plan is to monitor renal function closely, avoid nephrotoxins.
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
[2017-10-25] MEDS ORDERED: Potassium Phosphate 30 MMOL in Sodium Chloride 0.9% 250 ML 250 ML IVPB SCH (10:45)
[2017-10-25] MEDS: HumaLOG 300 UNITS/3 ML VIAL SC PRN (10:56)
[2017-10-25] MEDS ORDERED: Sulfameth/Trimethoprim DS 800-160mg TAB PO SCH (11:15)
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
[2017-10-25] MEDS ORDERED: Fentanyl 250 MCG/5 ML VIAL ONE ×2 (14:03→16:39)
[2017-10-25] MEDS ORDERED: CEFAZOLIN 1 GM VIAL ONE (14:50)
[2017-10-25] MEDS ORDERED: Ondansetron HCl/PF 4 MG/2 ML Vial IVP PRN (16:35)
[2017-10-25] MEDS ORDERED: PHENYLEPHRINE-NS 100 MCG/ML 10 ML SYRINGE ONE (17:09)
[2017-10-25] MEDS ORDERED: PROPOFOL 200 MG/20 ML VIAL ONE (17:09)
[2017-10-25] MEDS ORDERED: Lidocaine 1% PF 5 ML VIAL ONE (17:09)
--- NOTE | 2017-10-25 18:03 | RAD ---
INTRAOPERATIVE FLUOROSCOPIC VIEWS RIGHT HIP 2-3 VIEW SERIES: Indication: Fracture fixation. FINDINGS: There is indwelling hardware demonstrated within the proximal right femur, incompletely assessed by m agnified fluoroscopic imaging. Correlate with intraoperative findings. IMPRESSION: Intraoperative imaging for fracture fixation of the proximal right femur. POS: NATALIIA
[2017-10-25] MEDS ORDERED: traMADol HCl 50 MG TAB ONE (18:16)
[2017-10-25] MEDS ORDERED: Morphine 2 MG/ML SYRINGE ONE (18:49)
[2017-10-25] MEDS ORDERED: traMADol HCl 50 MG TAB PO PRN (19:35)
[2017-10-25] MEDS ORDERED: Ondansetron ODT 4 MG TAB PO PRN (19:35)
[2017-10-25] MEDS ORDERED: Bisacodyl 5 MG TAB PO PRN (19:35)
[2017-10-25] MEDS ORDERED: (Diclofenac Sodium [Voltaren] 100 GM) TP PRN (19:35)
[2017-10-25] MEDS ORDERED: Gabapentin 300 MG CAP PO SCH (19:45)
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
[2017-10-25] MEDS ORDERED: Lubiprostone 24 MCG CAP PO SCH (20:00)
[2017-10-25] MEDS ORDERED: Famotidine 20 MG TAB PO SCH (21:00)
[2017-10-25] MEDS: Carvedilol 6.25 MG TAB PO SCH (21:04)
[2017-10-25] MEDS: Lorazepam 1 MG TAB PO SCH (21:05)
[2017-10-25] MEDS: Sulfameth/Trimethoprim DS 800-160mg TAB PO SCH (21:05)
[2017-10-25] MEDS: Torsemide 20 MG TAB PO SCH (21:05)
[2017-10-25] MEDS: CEFAZOLIN 1 GM, Syringe 2.5 ML in Sterile Water 7.5 ML SLOW IVP SCH (21:06)
[2017-10-25] MEDS ORDERED: CEFAZOLIN 1 GM in Sodium Chloride 0.9% 100 ML IVPB SCH (22:00)
[2017-10-25] MEDS: Nitroglycerin 0.4 MG TAB (25 Tab Bottle) SL PRN (22:50)
[2017-10-25] MEDS: Morphine 2 MG/ML SYRINGE SLOW IVP PRN (23:19)
[2017-10-26] MEDS: traMADol HCl 50 MG TAB PO PRN (00:16)
[2017-10-26] MEDS: Sodium Chloride 0.9% 1,000 ML IV SCH (00:18)
[2017-10-26] MEDS: Morphine 2 MG/ML SYRINGE SLOW IVP PRN ×4 (02:42→20:42)
[2017-10-26] MEDS: Acetaminophen 500 MG TAB PO SCH ×4 (05:15→20:41)
[2017-10-26] MEDS: CEFAZOLIN 1 GM, Syringe 2.5 ML in Sterile Water 7.5 ML SLOW IVP SCH (05:15)
[2017-10-26] MEDS: Levothyroxine 150 MCG TAB PO SCH (05:15)
[2017-10-26 05:59] LABS: #Lymphocytes 1.3 thou/uL (1.20-3.40); #Monocytes 0.9 thou/uL (0.11-0.59); #Neutrophils 6.3 thou/uL (1.40-6.50); %Basophils 0.3 % (0.0-1.0); %Eosinophils 0.2 % (0.0-10.0); %Lymphocytes 14.7 % (21.0-51.0); %Neutrophils 74.8 % (42.0-75.0); Mean Corpuscular HGB CONC 30.7 g/dL (32.0-36.0); Mean Corpuscular Hemoglobin 28.4 pg (27.0-31.0); Mean Corpuscular Volume 92.6 fl (81.0-99.0); Mean Platelet Volume 7.1 fL (7.4-10.4); Platelet Count 177 thou/uL (130-400); RBC Distribution Width 15.2 % (11.5-14.5); White Blood Cell (WBC) Count 8.4 thou/uL (4.8-10.8)
[2017-10-26] MEDS: HumaLOG 300 UNITS/3 ML VIAL SC PRN ×4 (06:05→20:42)
[2017-10-26 06:08] LABS: Anion Gap 12 mmol/L (10-20); BUN (Urea Nitrogen) 40 mg/dL (9.8-20.1); Calc. Creatinine Clearance 48 mL/min (70-130); Carbon Dioxide 30 mmol/L (23-31); Chloride 102 mmol/L (98-107); Estimated GFR-MDRD 38; Glucose 197 mg/dL (83-110); Magnesium 1.8 mg/dL (1.6-2.6); Phosphorus 3.2 mg/dL (2.3-4.7); Potassium 3.7 mmol/L (3.5-5.1); Sodium 140 mmol/L (136-145)
[2017-10-26] MEDS: Lubiprostone 24 MCG CAP PO SCH ×2 (08:07→16:34)
[2017-10-26] MEDS ORDERED: Insulin NPH/Reg Insulin Hm 300 UNITS/3 ML VIAL SC SCH (09:00)
[2017-10-26] MEDS ORDERED: INSULIN DEGLUDEC 66 UNIT SQ SCH (09:00)
[2017-10-26] MEDS ORDERED: Aspirin 81 mg Enteric Coated Tablet PO SCH (09:00)
[2017-10-26] MEDS ORDERED: Gabapentin 300 MG CAP PO SCH (09:00)
[2017-10-26] MEDS: Ascorbic Acid 500 mg Chewable Tablet PO SCH ×2 (09:20→20:39)
[2017-10-26] MEDS: Torsemide 20 MG TAB PO SCH ×2 (09:21→14:31)
[2017-10-26] MEDS: Atorvastatin Calcium 10 MG TAB PO SCH (09:22)
[2017-10-26] MEDS: Amiodarone 200 MG TAB PO SCH (09:22)
[2017-10-26] MEDS: Carvedilol 6.25 MG TAB PO SCH ×2 (09:22→21:10)
[2017-10-26] MEDS: predniSONE 5 MG TAB PO SCH (09:22)
[2017-10-26] MEDS: Sulfameth/Trimethoprim DS 800-160mg TAB PO SCH ×2 (09:23→20:41)
[2017-10-26] MEDS ORDERED: Scopolamine 1.5 mg/72 hour Patch TD SCH (10:00)
[2017-10-26] MEDS ORDERED: Dextrose 5% in Water 1,000 ML IV PRN ×2 (10:07→17:56)
[2017-10-26] MEDS ORDERED: Dextrose 50% Abboject 50 ML SYRINGE SLOW IVP PRN ×2 (10:07→17:56)
[2017-10-26] MEDS ORDERED: traMADol HCl 50 MG TAB PO PRN (11:08)
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
[2017-10-26] MEDS: traMADol HCl 50 MG TAB PO SCH ×2 (12:11→18:11)
[2017-10-26] MEDS ORDERED: Morphine 2 MG/ML SYRINGE SLOW IVP SCH (13:00)
[2017-10-26] MEDS: Ondansetron ODT 4 MG TAB PO PRN (13:26)
[2017-10-26] MEDS: Gabapentin 300 MG CAP PO SCH ×2 (14:32→20:40)
[2017-10-26] MEDS: Ferrous Sulfate 325 MG TAB PO SCH (16:34)
[2017-10-26] MEDS: Nitroglycerin 0.4 MG TAB (25 Tab Bottle) SL PRN (18:11)
[2017-10-26] MEDS: Lorazepam 1 MG TAB PO SCH (20:40)
--- NOTE | 2017-10-26 22:10 | PRG ---
DATE OF SERVICE: 10/26/2017 SUBJECTIVE: Patient was seen and examined at bedside and overnight events noted. Patient denies any shortness of breath or chest pain or palpitation. No history of nausea or vomiting or diarrhea or f ever or chills or cramps. PHYSICAL EXAMINATION: GENERAL: This is an elderly female in no apparent distress. VITAL SIGNS: Temperature 98.7, pulse 65, respiration , blood pressure 109/56. HEENT: Atraumatic, normocephalic. Oral mucosa is moist. NECK: Supple. CARDIOVASCULAR: S1, S2 heard. Rate and rhythm regular. RESPIRATORY: Clear to auscultation. GASTROINTESTINAL: Abdomen is soft. MUSCULOSKELETAL: No tenderness. No edema. DERMATOLOGIC: No skin rash. NEUROLOGIC: Alert and awake and oriented x3. No focal neurologic deficits. Moving all the extremit ies. PSYCHIATRIC: Mood and affect normal LABORATORY DATA: Potassium is 3.7, BUN 40, creatinine is 1.3. ASSESSMENT AND PLAN: 1. Acute kidney injury on chronic kidney disease stage 3 much better. Okay with restarting Lasix 40 mg p.o. b.i.d. and plan discussed with Dr. Mcintosh. 2. Hypokalemia. Replace with close monitoring. Now that we are starting diuretics anemia. 4. Cardiorenal syndrome, cautious use of diuretics and edema. 5. Hypertension. Plan is to restart Lasix at a lower dose and monitor renal function and electrolytes.
[2017-10-27] MEDS: traMADol HCl 50 MG TAB PO SCH ×4 (00:03→17:23)
[2017-10-27] MEDS: Acetaminophen 500 MG TAB PO SCH ×3 (03:37→16:27)
[2017-10-27] MEDS: Morphine 2 MG/ML SYRINGE SLOW IVP PRN ×2 (03:38→12:06)
[2017-10-27 05:46] LABS: Anion Gap 11 mmol/L (10-20); BUN (Urea Nitrogen) 45 mg/dL (9.8-20.1); Calc. Creatinine Clearance 40 mL/min (70-130); Calcium 8.3 mg/dL (7.8-10.44); Carbon Dioxide 32 mmol/L (23-31); Chloride 101 mmol/L (98-107); Estimated GFR-MDRD 31; Glucose 132 mg/dL (83-110); Magnesium 1.8 mg/dL (1.6-2.6); Phosphorus 3.3 mg/dL (2.3-4.7); Potassium 3.7 mmol/L (3.5-5.1); Sodium 140 mmol/L (136-145)
[2017-10-27] MEDS: Levothyroxine 150 MCG TAB PO SCH (06:14)
[2017-10-27] MEDS: HumaLOG 300 UNITS/3 ML VIAL SC PRN ×3 (06:15→17:23)
[2017-10-27] MEDS ORDERED: HumaLOG 300 UNITS/3 ML VIAL SC PRN (07:26)
[2017-10-27] MEDS ORDERED: Dextrose 5% in Water 1,000 ML IV PRN ×2 (07:26→07:30)
[2017-10-27] MEDS ORDERED: Dextrose 50% Abboject 50 ML SYRINGE SLOW IVP PRN ×2 (07:26→07:30)
[2017-10-27] MEDS: Atorvastatin Calcium 10 MG TAB PO SCH (08:49)
[2017-10-27] MEDS: Ferrous Sulfate 325 MG TAB PO SCH ×2 (08:49→17:23)
[2017-10-27] MEDS: Sulfameth/Trimethoprim DS 800-160mg TAB PO SCH (08:49)
[2017-10-27] MEDS: Lubiprostone 24 MCG CAP PO SCH ×2 (08:49→17:23)
[2017-10-27] MEDS: Torsemide 20 MG TAB PO SCH ×2 (08:50→14:28)
[2017-10-27] MEDS: Amiodarone 200 MG TAB PO SCH (08:50)
[2017-10-27] MEDS: predniSONE 5 MG TAB PO SCH (08:50)
[2017-10-27] MEDS: Carvedilol 6.25 MG TAB PO SCH (08:50)
[2017-10-27] MEDS: Gabapentin 300 MG CAP PO SCH ×2 (08:52→14:28)
[2017-10-27] MEDS: Ascorbic Acid 500 mg Chewable Tablet PO SCH (08:52)
[2017-10-27] MEDS ORDERED: Insulin Detemir 100 UNITS/ML 13 UNITS in Pre-Filled Syringe 1 EACH SC SCH (09:00)
[2017-10-27] MEDS ORDERED: Polyethylene Glycol 3350 17 GM Packet PO SCH (09:00)
[2017-10-27] MEDS ORDERED: Senokot S 8.6-50 MG TAB PO SCH (09:00)
--- NOTE | 2017-10-27 09:32 | PRG ---
Patient Name: DAVID JIMENEZ Date of service: 10/27/2017 Subjective: Patient was seen and examined at bedside and overnight events noted. Patient denies any shortness of breath or chest pain or palpitation. No history of nausea or vomiting or diarrhea or fever or chills or cramps. Objective: General: This is an elderly white female in no apparent distress. Vital signs: Temperature 98.1, pulse 60, respiratory rate 16, blood pressure 109/64. HEENT: Atraumatic, normocephalic. Oral mucosa is moist. Neck: Supple. Cardiovascular: S1 S2 heard. Rate and rhythm regular. Respiratory: Clear to auscultation. Gastrointestinal: Abdomen is soft. Musculoskeletal: No tenderness. 1+ edema. Dermatologic: No skin rash. Neurologic: Alert and awake and oriented X3. No focal neurologic deficits. Moving all the extremi ties. Psychiatric: Mood and affect normal. LABORATORY DATA: Potassium is 3.7, BUN 45, creatinine is 1.5. ASSESSMENT AND PLAN: 1. Acute kidney injury on chronic kidney stage 3 to 4. Creatinine with slight bump today. Continue on Lasix with close monitoring of renal function. 2. Edema. 3. Cardiorenal syndrome. 4. Hypertension. 5. Hypokalemia. Replace and monitor. Plan is to monitor renal function closely. Creatinine was slight bump with resumption of lower than home dose of Lasix. We will continue to monitor.
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
[2017-10-27] MEDS: Ondansetron ODT 4 MG TAB PO PRN (12:06)
[2017-10-27] MEDS ORDERED: Lidocaine 1% w/Epinephrine 1:100K 30 ML VIAL ONE (17:20)
[2017-10-27 19:54] VITALS: BP 124/50; TEMP 98.5
--- NOTE | 2017-10-27 23:49 | OP ---
DATE OF PROCEDURE: 10/27/2017 PROCEDURE: Loop recorder insertion report. REFERRING PHYSICIAN: Dr. Lynch. REASON FOR PROCEDURE: Mrs. Ivory is an 81-year-old female with prior history of coronary artery dis ease, moderate aortic stenosis, normal LV function who presented with syncopal spell. Loop recorder was inserted for further monitoring to rule out arrhythmias. PROCEDURE IN DETAIL: The patient was prepped, draped and anesthetized with subcutaneous lidocaine in the left 4th intercostal space area. With standard LINQ insertion kit, incision was made over the l eft 4th intercostal space and the loop recorder was inserted. The wound was closed with Dermabond. CONCLUSION: Successful loop recorder implant. PLAN: Routine monitoring.
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
[2017-10-29] MEDS ORDERED: Scopolamine 1.5 mg/72 hour Patch TD SCH (09:00)
== END 2017-10-27 19:40 | DRG 956 ==
LOC: ERS 08:19 → CCU 09:37 → SURG A 10-25 17:39
PROVIDERS: ADMIT Surgery; ATTEND Surgery
PROC: 0HQ1XZZ Repair Face Skin, External Approach (ICD-10-PCS; 2017-10-24)
PROC: 0QS636Z Reposition Right Upper Femur with Intramedullary Internal Fixation Device, Percutaneous Approach (ICD-10-PCS; principal; 2017-10-25)
PROC: 0JH632Z Insertion of Monitoring Device into Chest Subcutaneous Tissue and Fascia, Percutaneous Approach (ICD-10-PCS; 2017-10-27)
DX: S72.141A Displaced intertrochanteric fracture of right femur, initial encounter for closed fracture (principal); S06.6X9A Traumatic subarachnoid hemorrhage with loss of consciousness of unspecified duration, initial encounter; N17.9 Acute kidney failure, unspecified; S22.040A Wedge compression fracture of fourth thoracic vertebra, initial encounter for closed fracture; E11.22 Type 2 diabetes mellitus with diabetic chronic kidney disease; E11.40 Type 2 diabetes mellitus with diabetic neuropathy, unspecified; E83.42 Hypomagnesemia; D62 Acute posthemorrhagic anemia; I48.0 Paroxysmal atrial fibrillation; R55 Syncope and collapse; I13.0 Hypertensive heart and chronic kidney disease with heart failure and stage 1 through stage 4 chronic kidney disease, or unspecified chronic kidney disease; I50.32 Chronic diastolic (congestive) heart failure; S32.110A Nondisplaced Zone I fracture of sacrum, initial encounter for closed fracture; S22.051A Stable burst fracture of T5-T6 vertebra, initial encounter for closed fracture; S22.050A Wedge compression fracture of T5-T6 vertebra, initial encounter for closed fracture; I49.9 Cardiac arrhythmia, unspecified; S01.81XA Laceration without foreign body of other part of head, initial encounter; R40.2413 Glasgow coma scale score 13-15, at hospital admission; S00.03XA Contusion of scalp, initial encounter; V47.0XXA Car driver injured in collision with fixed or stationary object in nontraffic accident, initial encounter; I35.0 Nonrheumatic aortic (valve) stenosis; I25.10 Atherosclerotic heart disease of native coronary artery without angina pectoris; Z95.5 Presence of coronary angioplasty implant and graft; N18.3 Chronic kidney disease, stage 3 (moderate); E78.5 Hyperlipidemia, unspecified; E03.9 Hypothyroidism, unspecified; Z96.652 Presence of left artificial knee joint; Z79.82 Long term (current) use of aspirin; Z79.4 Long term (current) use of insulin; E87.6 Hypokalemia
CPT/HCPCS: 12013; 33282; 36415; 36416; 51702; 70450; 70486; 71260; 72125; 72170; 74177; 76001; 80048; 80053; 81001; 82553; 83690; 83735; 83880; 84100; 84146; 84484; 85025; 85610; 85730; 86850; 86900; 86901; 90471; 90682; 90715; 93005; 93306; 93880; 96360; 96361; 96374; 96376; A4216; C1713; C1764; G0008; G0390; G8978-GP-CM; G8979-GP-CJ; G8987-GO-CM; G8988-GO-CI; J0131; J0690; J1815; J2001; J2060; J2270; J2405; J2704; J3010; J3480; J7050; Q0162; Q2036; S0028

== ENCOUNTER 2017-12-02 15:57 | Outpatient (CLI) | payer MEDICARE, BC ==
--- NOTE | 2017-12-02 17:38 | RAD ---
FOUR VIEWS THORACIC SPINE: 12/02/17 INDICATION: History of back pain. COMPARISON: Prior CT dated 11/23/17. FINDINGS: The patient's known burst type fracture involving L1 is not as well as seen on the comparison CT due to the patient's body habitus and diffuse osteopenia. The T2 and T3 fractures are not as well seen as on the comparison CT. IMPRESSION: Limitation of the exam due to patient's body habitus and diffuse osteopenia. T2, T3 and L1 compressio n fractures appear largely similar when accounting for limitations of the exam. POS: [facility]
== END 2017-12-02 15:58 | disposition home or self-care (01) ==
LOC: TBSIIMAG 15:57
PROVIDERS: ATTEND Neurological Surgery
DX: M54.6 Pain in thoracic spine (principal); M85.88 Other specified disorders of bone density and structure, other site; S22.021 Stable burst fracture of second thoracic vertebra; S22.03 Fracture of third thoracic vertebra; S32.011D Stable burst fracture of first lumbar vertebra, subsequent encounter for fracture with routine healing
CPT/HCPCS: 72070

== ENCOUNTER 2017-12-05 13:53 | Inpatient (IN) | payer MEDICARE, BC ==
[2017-12-05 15:01] LABS: #Basophils 0.1 thou/uL (0.0-0.2); #Lymphocytes 1.6 thou/uL (1.20-3.40); #Monocytes 0.7 thou/uL (0.11-0.59); #Neutrophils 7.3 thou/uL (1.40-6.50); %Basophils 0.8 % (0.0-1.0); %Eosinophils 0.2 % (0.0-10.0); %Monocytes 7.4 % (0.0-10.0); %Neutrophils 75.6 % (42.0-75.0); Hemoglobin 13.6 g/dL (12.0-16.0); Mean Corpuscular HGB CONC 32.3 g/dL (32.0-36.0); Mean Corpuscular Hemoglobin 29.4 pg (27.0-31.0); Mean Corpuscular Volume 91.1 fl (81.0-99.0); Mean Platelet Volume 6.7 fL (7.4-10.4); Platelet Count 306 thou/uL (130-400); RBC Distribution Width 15.1 % (11.5-14.5); Red Blood Cell (RBC) Count 4.61 mill/uL (4.20-5.40); White Blood Cell (WBC) Count 9.7 thou/uL (4.8-10.8)
[2017-12-05] MEDS ORDERED: Morphine 4 MG/ML VIAL ONE (15:12)
[2017-12-05 15:20] LABS: ALT (SGPT) 13 U/L (8-55); AST (SGOT) 20 U/L (5-34); Albumin 3.7 g/dL (3.4-4.8); Alkaline Phosphatase 112 U/L (40-150); Anion Gap 14 mmol/L (10-20); BUN (Urea Nitrogen) 67 mg/dL (9.8-20.1); Bilirubin, Total 0.4 mg/dL (0.2-1.2); Calc. Creatinine Clearance 0 mL/min (70-130); Carbon Dioxide 30 mmol/L (23-31); Chloride 97 mmol/L (98-107); Estimated GFR-MDRD 29; Globulin 2.8 g/dL (2.4-3.5); Potassium 3.3 mmol/L (3.5-5.1); Protein, Total 6.5 g/dL (6.0-8.3); Sodium 138 mmol/L (136-145)
[2017-12-05 15:25] LABS: Bilirubin Negative (Negative); Blood, Urine Trace (Negative); Clarity CLOUDY (Clear); Glucose, Urine (Dipstick) Negative (Negative); Leukocyte Moderate (Negative); Nitrite Negative (Negative); Protein, Urine (Dipstick) Negative (Neg-Trace); Specific Gravity, Urine 1.014 (1.002-1.036); Urobilinogen 0.2 mg/dL (0.2-1.0)
[2017-12-05 15:27] LABS: Bacteria/HPF 1+ HPF (None Seen); Hyaline Casts/LPF 4-6 HYALINE CAST LPF (0-3 Hyaline); Pathc Cast-AUWi Flag 1.16 (0-2.49); Squamous Epithelial 0-3 HPF (0-3); WBC/HPF 21-50 HPF (0-3)
[2017-12-05 15:28] LABS: Yeast-AUWi Flag 114.7 (0-25.0)
[2017-12-05 15:30] LABS: Glucose 52 mg/dL (83-110)
[2017-12-05 15:34] LABS: RBC/HPF 0-3 HPF (0-3)
[2017-12-05 15:35] LABS: Yeast-All Forms None Seen HPF (None Seen)
[2017-12-05] MEDS ORDERED: Dextrose 50% Abboject 50 ML SYRINGE SLOW IVP PRN (16:36)
[2017-12-05] MEDS ORDERED: Dextrose 5% in Water 1,000 ML IV PRN (16:36)
[2017-12-05] MEDS ORDERED: Potassium Chloride 20 MEQ TAB ONE (16:36)
[2017-12-05] MEDS ORDERED: cefTRIAXone\\ROCEPHIN 1 GM in Sodium Chloride 0.9% 100 ML IVPB SCH (16:45)
[2017-12-05] MEDS ORDERED: Ondansetron ODT 4 MG TAB ONE (17:08)
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
--- NOTE | 2017-12-05 17:58 | CT ---
CT ABDOMEN AND PELVIS WITHOUT CONTRAST: Comparison: 10-24-17 History: Nausea, vomiting, and diarrhea for four days. Technique: Multiple contiguous axial images were obtained in a CT of the abdomen and pelvis without c ontrast. Coronal reformats were performed. FINDINGS: The patient is status cholecystectomy and hysterectomy. Calcifications in the liver and spleen are fr om prior granulomatous disease. No focal liver masses are seen. The kidneys, adrenal glands, and panc reas are unremarkable, although evaluation is limited without IV contrast. No free air, free fluid, or stranding changes are seen in the abdomen and pelvis. The large and small bowel are unremarkable. The appendix is not definitely seen. No abdominal or pelvic lymphadenopathy are seen. Atherosclerotic calcifications are seen in the aorta. Degenerative changes are seen in the spine. The patient has hardware in the right hip from prior righ t hip fracture. The previously seen pelvic fractures are healed. There is severe compression deformit y of the L1 vertebral body with greater than 30% height loss which is chronic. Calcified granulomas are seen in the left lung base. The abdominal wall soft tissues are unremarkable . IMPRESSION: 1. No evidence of acute intraabdominal/pelvic abnormality. 2. L1 compression fracture appears chronic. POS: [facility]
[2017-12-05] MEDS: cefTRIAXone\\ROCEPHIN 1 GM, Syringe 0.4 ML in Sterile Water 9.6 ML SLOW IVP SCH (18:56)
[2017-12-05] MEDS: Ferrous Sulfate 325 MG TAB PO SCH (18:58)
[2017-12-05 19:01] VITALS: BMI 27.8
[2017-12-05] MEDS: Famotidine 20 MG TAB PO SCH (19:20)
[2017-12-05] MEDS: Acetaminophen 325 MG TAB PO PRN ×2 (19:20→23:58)
[2017-12-05] MEDS: Carvedilol 6.25 MG TAB PO SCH (19:21)
[2017-12-05] MEDS: traMADol HCl 50 MG TAB PO PRN (19:23)
[2017-12-05] MEDS: Docusate 100 MG CAP PO SCH (19:24)
[2017-12-05] MEDS: Gabapentin 300 MG CAP PO SCH (19:24)
[2017-12-05] MEDS: Heparin 5,000 UNITS/ML VIAL SC SCH (19:24)
[2017-12-05] MEDS: Dextrose 5 % And 0.9 % NaCl 1,000 ML IV SCH (19:26)
--- NOTE | 2017-12-05 21:10 | RAD ---
SINGLE VIEW OF THE CHEST: Comparison: 10-05-17 History: Shortness of breath. FINDINGS: Single view of the chest shows a cardiomediastinal silhouette that is enlarged but stable in size. A calcified granuloma projects over the left chest. A cardiac monitoring device is also seen. Decreased interstitial markings are present. No consolidation or pleural effusion are seen. IMPRESSION: No evidence of acute cardiopulmonary disease. POS: [facility]
[2017-12-06] MEDS ORDERED: Lorazepam 0.5 MG TAB PO PRN (00:16)
[2017-12-06] MEDS: Acetaminophen 325 MG TAB PO PRN ×4 (03:43→20:06)
[2017-12-06] MEDS: traMADol HCl 50 MG TAB PO PRN ×4 (03:43→23:39)
[2017-12-06] MEDS ORDERED: Ketorolac Tromethamine 30 MG/ML VIAL IVP SCH (05:00)
[2017-12-06] MEDS: Dextrose 5 % And 0.9 % NaCl 1,000 ML IV SCH ×2 (05:36→20:07)
[2017-12-06] MEDS: Levothyroxine 150 MCG TAB PO SCH (05:36)
[2017-12-06 06:36] LABS: #Monocytes 0.7 thou/uL (0.11-0.59); #Neutrophils 3.2 thou/uL (1.40-6.50); %Basophils 0.4 % (0.0-1.0); %Eosinophils 0.6 % (0.0-10.0); %Lymphocytes 33.6 % (21.0-51.0); %Monocytes 11.5 % (0.0-10.0); Hemoglobin 13.4 g/dL (12.0-16.0); Mean Corpuscular HGB CONC 31.4 g/dL (32.0-36.0); Mean Corpuscular Volume 92.5 fl (81.0-99.0); Mean Platelet Volume 6.7 fL (7.4-10.4); Platelet Count 244 thou/uL (130-400); RBC Distribution Width 15.2 % (11.5-14.5); Red Blood Cell (RBC) Count 4.63 mill/uL (4.20-5.40)
[2017-12-06 06:54] LABS: Anion Gap 14 mmol/L (10-20); BUN (Urea Nitrogen) 56 mg/dL (9.8-20.1); Calc. Creatinine Clearance 37 mL/min (70-130); Calcium 9.6 mg/dL (7.8-10.44); Carbon Dioxide 30 mmol/L (23-31); Chloride 101 mmol/L (98-107); Estimated GFR-MDRD 36; Glucose 76 mg/dL (83-110); Potassium 3.6 mmol/L (3.5-5.1); Sodium 141 mmol/L (136-145)
[2017-12-06] MEDS: Amiodarone 200 MG TAB PO SCH (07:32)
[2017-12-06] MEDS: Docusate 100 MG CAP PO SCH ×2 (07:32→20:06)
[2017-12-06] MEDS: Carvedilol 6.25 MG TAB PO SCH ×2 (07:32→20:05)
[2017-12-06] MEDS: Ferrous Sulfate 325 MG TAB PO SCH ×2 (07:32→15:46)
[2017-12-06] MEDS: Atorvastatin Calcium 10 MG TAB PO SCH (07:33)
[2017-12-06] MEDS: Gabapentin 300 MG CAP PO SCH ×3 (07:33→20:05)
[2017-12-06] MEDS: Heparin 5,000 UNITS/ML VIAL SC SCH ×3 (09:07→20:06)
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
[2017-12-06] MEDS ORDERED: Morphine 4 MG/ML VIAL SLOW IVP SCH (14:30)
--- NOTE | 2017-12-06 14:51 | PDOC.PN ---
- Subjective Encounter Start Date: 12/06/17 Encounter Start Time: 12:00 Subjective: pt up in bed complains of pain to her left shoulder and right hip - Objective Resuscitation Status: Resuscitation Status FULL:Full Resuscitation Vital Signs & Weight: Vital Signs (12 hours) Temp Pulse Resp BP BP Pulse Ox 12/06/17 08:00 97.7 F 58 L 16 120/62 96 12/06/17 07:32 174/73 H 12/06/17 04:49 97.8 F 61 22 H 181/77 H 97 Weight Weight 167 lb 2 oz I&O: 12/05/17 12/06/17 12/07/17 06:59 06:59 06:59 Intake Total 1250 Balance 1250 Result Diagrams: 12/06/17 06:28 12/06/17 06:28 Additional Labs: Accuchecks 12/06/17 12/06/17 12/05/17 10:54 04:25 19:34 POC Glucose 241 H 104 105 12/05/17 17:14 POC Glucose 75 Phys Exam - Physical Examination HEENT: PERRLA, moist MMs, sclera anicteric, TM's clear, oral pharynx no lesions , 2+ tonsils Neck: no nodes, no JVD, supple, full ROM Respiratory: no wheezing, no rales, no rhonchi, wheezing present, clear to auscultation bilateral Cardiovascular: RRR, no significant murmur, no rub, gallop, irregular Gastrointestinal: soft, non-tender, no distention, positive bowel sounds Musculoskeletal: no edema, pulses present, edema present Deviation from normal: mild redness noted to buttocks, no lumps or bumps noted Dx/Plan - Plan 1) nausea/vomiting 2) uti 3) malnutrition 4) chronic left shoulder pain 5) pressure ulcers plan: pt's appetitie has improved is eating well. continue ceftriaxone for now. cx gram negative. will increase pt's pain meds. wound care nurse felt pt had a possible abscess on her buttocks. only erythema noted no lumps noted. pt will need rehab. PT ordered. * . Review of Systems - Review of Systems Eyes: negative: Pain, Vision Change, Conjunctivae Inflammation, Eyelid Inflammation, Redness, Other ENT: negative: Ear Pain, Ear Discharge, Nose Pain, Nose Discharge, Nose Congestion, Mouth Pain, Mouth Swelling, Throat Pain, Throat Swelling, Other Respiratory: negative: Cough, Dry, Shortness of Breath, Hemoptysis, SOB with Excertion, Pleuritic Pain, Sputum, Wheezing Cardiovascular: negative: chest pain, palpitations, orthopnea, paroxysmal nocturnal dyspnea, edema, light headedness, other Gastrointestinal: negative: Nausea, Vomiting, Abdominal Pain, Diarrhea, Constipation, Melena, Hematochezia, Other Musculoskeletal: Shoulder Pain Skin: negative: Rash, Lesions, Carroll, Bruising, Other - Medications/Allergies Allergies/Adverse Reactions: Allergies Allergy/AdvReac Type Severity Reaction Status Date / Time hydrocodone [From [place]] Allergy Verified 10/08/17 00:28 Medications: Current Medications Acetaminophen (Tylenol) 650 mg PO Q4H PRN PRN Reason: Headache/Fever or Pain Last Admin: 12/06/17 07:33 Dose: 650 mg Amiodarone HCl (Cordarone) 200 mg PO DAILY [facility] Last Admin: 12/06/17 07:32 Dose: 200 mg Atorvastatin Calcium (Lipitor) 10 mg PO DAILY [facility] Last Admin: 12/06/17 07:33 Dose: 10 mg Carvedilol (Coreg) 6.25 mg PO BID [facility] Last Admin: 12/06/17 07:32 Dose: 6.25 mg Dextrose/Water (Dextrose 50%) 25 gm SLOW IVP PRN PRN PRN Reason: Hypoglycemia Docusate Sodium (Colace) 100 mg PO BID [facility] Last Admin: 12/06/17 07:32 Dose: 100 mg Famotidine (Pepcid) 20 mg PO QPM [facility] Last Admin: 12/05/17 19:20 Dose: 20 mg Ferrous Sulfate (Feosol) 325 mg PO BID-[facility] Last Admin: 12/06/17 07:32 Dose: 325 mg Gabapentin (Neurontin) 300 mg PO TID [facility] Last Admin: 12/06/17 07:33 Dose: 300 mg Glucagon (Glucagon) 1 mg IM PRN PRN PRN Reason: Hypoglycemia Heparin Sodium (Porcine) (Heparin) 5,000 units SC TID [facility] Last Admin: 12/06/17 09:07 Dose: 5,000 units Dextrose/Sodium Chloride (D5 0.9% Ns) 1,000 mls @ 75 mls/hr IV .[id number] [facility] Last Admin: 12/06/17 05:36 Dose: 1,000 mls Dextrose/Water (D5w) 1,000 mls @ 0 mls/hr IV .Q0M PRN; As Directed PRN Reason: Hypoglycemia Ceftriaxone Sodium 1 gm/ (Syringe 0.4 ml/ Sterile Water) 10 mls @ 120 mls/hr SLOW IVP 1700 [facility] Last Admin: 12/05/17 18:56 Dose: Not Given Levothyroxine Sodium (Synthroid) 150 mcg PO 0600 [facility] Last Admin: 12/06/17 05:36 Dose: 150 mcg Lorazepam (Ativan) 0.5 mg PO HSPRN PRN PRN Reason: ANXIETY/AGITATION Morphine Sulfate (Morphine) 2 mg SLOW IVP NOW [facility] Stop: 12/06/17 16:30 Last Admin: 12/06/17 14:36 Dose: 2 mg Tramadol HCl (Ultram) 50 mg PO Q4H PRN PRN Reason: Pain
[2017-12-06] MEDS: cefTRIAXone\\ROCEPHIN 1 GM, Syringe 0.4 ML in Sterile Water 9.6 ML SLOW IVP SCH (15:47)
[2017-12-06] MEDS: Famotidine 20 MG TAB PO SCH (20:05)
[2017-12-06] MEDS ORDERED: Dextrose 5% in Water 1,000 ML IV PRN (21:53)
[2017-12-06] MEDS ORDERED: Dextrose 50% Abboject 50 ML SYRINGE SLOW IVP PRN (21:53)
[2017-12-06] MEDS: HumaLOG 300 UNITS/3 ML VIAL SC PRN (22:30)
[2017-12-07] MEDS: Acetaminophen 325 MG TAB PO PRN ×4 (01:58→11:53)
[2017-12-07] MEDS: Levothyroxine 150 MCG TAB PO SCH (04:34)
[2017-12-07] MEDS: traMADol HCl 50 MG TAB PO PRN ×3 (04:34→11:52)
[2017-12-07] MEDS: Docusate 100 MG CAP PO SCH ×2 (08:11→21:16)
[2017-12-07] MEDS: Gabapentin 300 MG CAP PO SCH ×6 (08:12→21:09)
[2017-12-07] MEDS: Atorvastatin Calcium 10 MG TAB PO SCH (08:12)
[2017-12-07] MEDS: Amiodarone 200 MG TAB PO SCH (08:13)
[2017-12-07] MEDS: Ferrous Sulfate 325 MG TAB PO SCH ×2 (08:13→16:21)
[2017-12-07] MEDS: Carvedilol 6.25 MG TAB PO SCH ×2 (08:13→21:09)
[2017-12-07] MEDS: Heparin 5,000 UNITS/ML VIAL SC SCH ×3 (08:14→21:10)
[2017-12-07] MEDS ORDERED: Ondansetron HCl/PF 4 MG/2 ML Vial SLOW IVP PRN (11:33)
[2017-12-07] MEDS ORDERED: Ondansetron ODT 4 MG TAB PO PRN (11:45)
[2017-12-07] MEDS ORDERED: Nystatin Powder 15 GM BOT TOP PRN (12:34)
[2017-12-07 12:41] LABS: Troponin I 0.019 ng/mL (< 0.028)
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
--- NOTE | 2017-12-07 13:32 | PQF ---
CLINICAL DOCUMENTATION IMPROVEMENT CLARIFICATION FORM: ICD-10 Updated PLEASE DO AN ADDENDUM TO THE PROGRESS NOTE WITH ANY DOCUMENTATION UPDATES OR ADDITIONS AND CARRY THROUGH TO DC SUMMARY. THANK YOU. DATE: 12/07 ATTN: DR. LEYDI MERCHANT Please exercise your independent, professional judgment in responding to the clarification form. Clinical indicators are provided on the bottom of this form for your review Please check appropriate box(s): [ x ] Acute Renal Failure (ARF) / Acute Kidney Injury (ANUM) (Please specify associated condition, if applicable) [ x ] Other Etiology or underlying conditions related to the diagnosis of ARF / ANUM: __Dehydration [ ] Acute on Chronic Renal Failure please specify Stage of CKD (see below) [ ] CKD without ARF/ANUM please specify Stage of CKD [ ] Other diagnosis [ ] Unable to determine National Kidney Foundation Guidelines for CKD Staging Stage I Kidney damage with normal or increased GFR GFR > 90 Stage II Kidney damage with mildly decreased GFR GFR 60-89 Stage III Kidney damage with moderately decreased GFR GFR 30-59 Stage IV Kidney damage with severely decreased GFR GFR 16-29 Stage V Kidney failure GFR<15 ESRD End Stage Renal Disease On dialysis For continuity of documentation, please document condition throughout progress notes and discharge summary. Thank You. CLINICAL INDICATORS - SIGNS / SYMPTOMS / LABS BUN: 67 CR: 1.67 GFR: 29 (12/05, ADMIT) 56 1.40 36 (12/06 ) PHYSICIAN H&P DOCUMENTATION 12/05: ASSESSMENT & PLAN: 1) CHRONIC KIDNEY DISEASE. THE PATIENT'S BUN IS SIGNIFICANTLY ELEVATED ... RISK FACTORS: DEHYDRATION N/V/D X4 DAYS UTI TREATMENTS: IVF (D5 NS X1L 12/05 - ; 500 ML NS IN ER 12/05) IV ROCEPHIN (12/05 - PRESENT) THANK YOU! Rosie (This form is maintained as a part of the permanent medical record) 2014 [employer]. All Rights Reserved Rosie Tillman RN, BSN [email or web address] Office: [phone] [facility]
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
[2017-12-07] MEDS: oxyCODONE 5 MG TAB PO PRN ×2 (16:20→21:19)
[2017-12-07] MEDS: Magnesium Citrate 300 ML BOT PO SCH ×2 (16:21→21:06)
--- NOTE | 2017-12-07 16:33 | RAD ---
ABDOMEN ONE VIEW: 12/07/17 HISTORY: 82-year-old female with abdominal distention with concern for small bowel obstruction. COMPARISON: Abdomen and pelvic CT scan dated 12/05/17, two days ago. Scattered gas and fecal material in the colon. There is some minimal scarring gas in nondilated small bowel with no evidence of large or small bowel obstruction. The appearance is stable from the teacher of the deaf/hard of hearing film from 12/05/17. No overt calculus. No evidence for free air. IMPRESSION: Unremarkable abdomen. No evidence for bowel obstruction. Stable from prior CT scan of 12/05/17. POS: [facility]
[2017-12-07] MEDS: cefTRIAXone\\ROCEPHIN 1 GM, Syringe 0.4 ML in Sterile Water 9.6 ML SLOW IVP SCH (17:04)
[2017-12-07] MEDS: Famotidine 20 MG TAB PO SCH (21:08)
[2017-12-07] MEDS: Isosorbide Mononitrate 20 MG TAB PO SCH (21:10)
[2017-12-07] MEDS: Lorazepam 0.5 MG TAB PO SCH (22:30)
[2017-12-08] MEDS: oxyCODONE 5 MG TAB PO PRN ×6 (01:57→22:49)
[2017-12-08] MEDS: Levothyroxine 150 MCG TAB PO SCH (06:17)
[2017-12-08] MEDS: HumaLOG 300 UNITS/3 ML VIAL SC PRN ×4 (06:21→19:54)
[2017-12-08] MEDS: predniSONE 5 MG TAB PO SCH (07:52)
[2017-12-08] MEDS: Heparin 5,000 UNITS/ML VIAL SC SCH ×3 (07:52→19:48)
[2017-12-08] MEDS: Aspirin 81 mg Enteric Coated Tablet PO SCH (07:52)
[2017-12-08] MEDS: Docusate 100 MG CAP PO SCH ×2 (07:53→19:48)
[2017-12-08] MEDS: Ferrous Sulfate 325 MG TAB PO SCH ×2 (07:53→17:21)
[2017-12-08] MEDS: Amiodarone 200 MG TAB PO SCH (07:53)
[2017-12-08] MEDS: Carvedilol 6.25 MG TAB PO SCH ×2 (07:53→19:48)
[2017-12-08] MEDS: Atorvastatin Calcium 10 MG TAB PO SCH (07:53)
[2017-12-08] MEDS: Gabapentin 300 MG CAP PO SCH ×3 (07:53→19:48)
[2017-12-08] MEDS: Isosorbide Mononitrate 20 MG TAB PO SCH ×2 (07:54→19:47)
[2017-12-08] MEDS: Torsemide 20 MG TAB PO SCH ×2 (07:55→15:06)
[2017-12-08] MEDS ORDERED: Metoclopramide HCl 10 MG/2 ML VIAL IVP PRN (08:56)
[2017-12-08] MEDS ORDERED: Ondansetron HCl/PF 4 MG/2 ML Vial IVP SCH (09:00)
[2017-12-08] MEDS ORDERED: Ondansetron HCl/PF 4 MG/2 ML Vial IVP PRN (10:02)
--- NOTE | 2017-12-08 15:42 | MRI ---
CERVICAL SPINE MRI WITHOUT CONTRAST: 12/08/17 COMPARISON: None. HISTORY: Neck pain with right arm numbness. TECHNIQUE: Multiplanar and multisequence MR imaging of the cervical spine is provided without contrast. FINDINGS: Persistent patient motion artifact throughout the examination limits detailed assessment for central canal and/or neural foraminal stenosis. The CT examination performed 10/24/17 demonstrated fractures of T3, T4, and T5 vertebral bodies. These fractures are not optimally assessed on this examination secondary to field of view and patient motio n artifact. The provided images do demonstrate partially imaged T3, T4 and T5 fractures. Of note, the STIR imaging does demonstrate incompletely assessed edema within T4 and T5, most prominent to the ri ght of midline at T5, only partially imaged. This is consistent with incompletely assessed fractures which should be further assessed with followup CT examination No focal areas of abnormal STIR signal is noted within the cervical spine to suggest acute fracture of the cervical spine. There is prominent degenerative change at the atlanto axial interspace. There is no anterolisthesis o r retrolisthesis seen within the cervical spine. C2-3: Bilateral facet hypertrophy and disc space narrowing with no obvious central canal or neural fo raminal stenosis. C3-4: There is disc space narrowing and disc desiccation. There is bilateral facet and uncovertebral osteophyte formation, left greater than right, with probable significant left neural foraminal stenos is. C4-5: There is disc space narrowing and disc desiccation with disc bulge causing at least mild centra l canal stenosis. There is bilateral facet and uncovertebral osteophyte formation with probable signi ficant bilateral neural foraminal stenosis. C5-6: There is disc space narrowing and disc desiccation and disc bulge with at least mild central ca nal stenosis. Facet and uncovertebral osteophyte formation noted bilaterally with at least mild bilat eral neural foraminal stenosis. C6-7: There is disc space narrowing and disc desiccation. No obvious significant central canal or valeriy ral foraminal stenosis. C7-T1: Disc space narrowing and disc desiccation with no obvious central canal or neural foraminal st enosis. No obvious cord signal abnormality. IMPRESSION: Markedly limited imaging on the basis of patient motion artifact. Recent CT examination performed 10/24 demonstrated fractures at T3, T4, and T5 level, incompletely imaged on this examination. There is edematous change, particularly at T4 and T5, suggesting incomplete healing and edema on the basis of fracture. Clinical correlation is essential as to whether followup CT examination is required. If no t already performed, a neurosurgical consultation is advised. Code T POS: [facility]
[2017-12-08] MEDS: cefTRIAXone\\ROCEPHIN 1 GM, Syringe 0.4 ML in Sterile Water 9.6 ML SLOW IVP SCH (17:21)
[2017-12-08] MEDS ORDERED: Furosemide 40 MG/4 ML VIAL SLOW IVP SCH (17:30)
[2017-12-08] MEDS ORDERED: Potassium Chloride 20 MEQ TAB PO SCH (17:30)
[2017-12-08] MEDS: Lorazepam 0.5 MG TAB PO SCH (19:48)
[2017-12-08] MEDS: Famotidine 20 MG TAB PO SCH (19:48)
--- NOTE | 2017-12-08 19:50 | PRG ---
DATE OF SERVICE: 12/08/2017 HISTORY: Ms. Ivory is readmitted back to the hospital. She had urinary tract infection. Her diure tics were held a couple of days. She has some short of breath. PHYSICAL EXAMINATION: VITAL SIGNS: Blood pressure 152/73, pulse 67 and regular. LUNGS: Clear. CARDIAC: Normal S1, normal S2. ABDOMEN: Soft and nontender. EXTREMITIES: Moderate to severe edema on the right lower extremity. Mild to moderate on the left. ASSESSMENT: Congestive heart failure, mostly diastolic, probably volume overloaded and diuretics had to be held due to intravascular depletion. PLAN: 1. We will give her an extra dose of furosemide now. 2. We will check back with her tomorrow morning.
[2017-12-08] MEDS: traMADol HCl 50 MG TAB PO PRN (21:05)
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
[2017-12-09] MEDS: oxyCODONE 5 MG TAB PO PRN ×4 (04:44→18:38)
[2017-12-09] MEDS: Levothyroxine 150 MCG TAB PO SCH (04:44)
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
[2017-12-09] MEDS: Amiodarone 200 MG TAB PO SCH (08:24)
[2017-12-09] MEDS: Carvedilol 6.25 MG TAB PO SCH ×2 (08:24→20:53)
[2017-12-09] MEDS: Docusate 100 MG CAP PO SCH ×3 (08:32→20:52)
[2017-12-09] MEDS: Ferrous Sulfate 325 MG TAB PO SCH ×3 (08:32→18:38)
[2017-12-09] MEDS: Atorvastatin Calcium 10 MG TAB PO SCH ×2 (08:32→14:57)
[2017-12-09] MEDS: Aspirin 81 mg Enteric Coated Tablet PO SCH (08:32)
[2017-12-09] MEDS: Heparin 5,000 UNITS/ML VIAL SC SCH ×3 (08:33→20:53)
[2017-12-09] MEDS: Gabapentin 300 MG CAP PO SCH ×3 (08:33→20:52)
[2017-12-09] MEDS: Torsemide 20 MG TAB PO SCH ×3 (08:34→14:56)
[2017-12-09] MEDS: Isosorbide Mononitrate 20 MG TAB PO SCH ×3 (08:34→20:53)
[2017-12-09] MEDS: predniSONE 5 MG TAB PO SCH ×2 (08:34→14:56)
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
[2017-12-09] MEDS: traMADol HCl 50 MG TAB PO PRN (10:15)
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
[2017-12-09] MEDS ORDERED: Promethazine HCl 25 MG/ML VIAL IM PRN (14:12)
[2017-12-09] MEDS ORDERED: Promethazine HCl 25 MG/ML VIAL SLOW IVP PRN (14:12)
[2017-12-09] MEDS ORDERED: Ondansetron HCl/PF 4 MG/2 ML Vial IVP PRN (14:12)
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
[2017-12-09] MEDS ORDERED: Lidocaine 1% PF 5 ML VIAL ONE (16:47)
[2017-12-09] MEDS ORDERED: PROPOFOL 200 MG/20 ML VIAL ONE (16:47)
--- NOTE | 2017-12-09 17:32 | OP ---
DATE OF PROCEDURE: 12/09/2017 GI ENDOSCOPY NOTE SURGEON: Adalberto Landeros M.D. BUSINESS DEVELOPMENT MANAGER SURGEON: None. PROCEDURE: Esophagogastroduodenoscopy with esophageal dilation over a guidewire and biopsies. INDICATION: Dysphagia. MEDICATIONS: See anesthesia record. FINDINGS: After discussion of the risks, benefits and alternatives of the procedure, informed consen t was obtained and witnessed. Pre-endoscopic cardiopulmonary examination was satisfactory. Timeout was performed before sedation was achieved. Sedation was achieved with anesthesia assistance in the endoscopy unit. A Pentax adult upper endoscope was placed into the oropharynx and passed through the cricopharyngeus under direct visualization. The esophageal mucosa appeared normal throughout with a normal-appearing Z-line. There was no endoscopic finding to explain the patient's complaint of dysp hagia. The endoscope was passed through the GE junction and into the stomach. Forward and retroflex ed views of the entire gastric mucosa were obtained. In the gastric fundus near the GE junction, the re is a single polyp, this measures about 8 mm in diameter and is semi-pedunculated. It is close to the GE junction, but not obstructing it in any way. Biopsies were obtained from this gastric polyp. The remainder of the gastric mucosa appears normal. The endoscope was passed through the pylorus an d into the first and second portions of the duodenum, which appeared normal. A Savary guidewire was then passed down the accessory port and the endoscope was removed, leaving the guidewire tip in the g astric antrum. A single dilation was performed over the guidewire to 18 mm with minimal resistance. The dilator and guidewire were then removed. The esophagus was reintubated for reexamination and sh owed no change. No mucosal disruption. The endoscope was then completely withdrawn and the patient allowed to recover. The patient tolerated the procedure well. There were no immediate post-procedur e complications. IMPRESSION: 1. Normal esophagus. No endoscopic findings to explain the patient's dysphagia. The esophagus empi rically dilated to 18 mm. 2. Small polyp in the gastric fundus near the GE junction, but not obstructing it, biopsied. 3. Otherwise, normal esophagogastroduodenoscopy. RECOMMENDATIONS: 1. Advance diet. 2. Follow up pathology results on the gastric polyp. 3. GI will sign off. Please call back if needed or with any questions or concerns. We will have he r follow up in clinic with Dr. Frazier or one of our physician assistants in the next 2-3 weeks.
[2017-12-09] MEDS: cefTRIAXone\\ROCEPHIN 1 GM, Syringe 0.4 ML in Sterile Water 9.6 ML SLOW IVP SCH (18:39)
[2017-12-09] MEDS: HumaLOG 300 UNITS/3 ML VIAL SC PRN ×2 (18:40→20:53)
--- NOTE | 2017-12-09 19:26 | PRG ---
DATE OF SERVICE: 12/09/2017 SUBJECTIVE: Ms. Ivory is doing well today. She underwent upper GI procedures as outlined in the art. She has no chest pain or pressure. She feels well. PHYSICAL EXAMINATION: VITAL SIGNS: Her blood pressure is 125/69, pulse is in the 60s. LUNGS: Clear. CARDIAC: Normal S1, normal S2. ABDOMEN: Soft, nontender. EXTREMITIES: There is moderate edema. ASSESSMENT: 1. Congestive heart failure, mostly diastolic, still somewhat volume overloaded. 2. Aortic stenosis, moderate. PLAN: 1. We will change to intravenous Lasix tomorrow to see if we can diurese her better while she is her e in the hospital. 2. Give her a single dose of metolazone as well tomorrow.
[2017-12-09] MEDS: Acetaminophen 325 MG TAB PO PRN (20:52)
[2017-12-09] MEDS: Famotidine 20 MG TAB PO SCH (20:52)
[2017-12-09] MEDS: Lorazepam 0.5 MG TAB PO SCH (20:53)
[2017-12-10] MEDS: oxyCODONE 5 MG TAB PO PRN ×4 (02:42→20:33)
[2017-12-10] MEDS: Furosemide 40 MG/4 ML VIAL SLOW IVP SCH ×2 (05:31→14:51)
[2017-12-10] MEDS: Levothyroxine 150 MCG TAB PO SCH (05:31)
[2017-12-10] MEDS: HumaLOG 300 UNITS/3 ML VIAL SC PRN ×4 (05:32→21:28)
[2017-12-10] MEDS: traMADol HCl 50 MG TAB PO PRN ×2 (05:32→11:36)
[2017-12-10 06:24] LABS: Anion Gap 11 mmol/L (10-20); BUN (Urea Nitrogen) 33 mg/dL (9.8-20.1); Calc. Creatinine Clearance 42 mL/min (70-130); Calcium 10.5 mg/dL (7.8-10.44); Carbon Dioxide 33 mmol/L (23-31); Chloride 100 mmol/L (98-107); Estimated GFR-MDRD 41; Glucose 206 mg/dL (83-110); Sodium 140 mmol/L (136-145)
[2017-12-10] MEDS: Aspirin 81 mg Enteric Coated Tablet PO SCH (07:52)
[2017-12-10] MEDS: Amiodarone 200 MG TAB PO SCH (07:52)
[2017-12-10] MEDS: Ferrous Sulfate 325 MG TAB PO SCH ×2 (07:52→16:46)
[2017-12-10] MEDS: Docusate 100 MG CAP PO SCH ×2 (07:52→20:31)
[2017-12-10] MEDS: predniSONE 5 MG TAB PO SCH (07:52)
[2017-12-10] MEDS: Gabapentin 300 MG CAP PO SCH ×3 (07:53→20:31)
[2017-12-10] MEDS: Carvedilol 6.25 MG TAB PO SCH ×2 (07:53→20:31)
[2017-12-10] MEDS: Atorvastatin Calcium 10 MG TAB PO SCH (07:53)
[2017-12-10] MEDS: Heparin 5,000 UNITS/ML VIAL SC SCH ×3 (07:54→20:32)
[2017-12-10] MEDS: Isosorbide Mononitrate 20 MG TAB PO SCH ×2 (07:54→20:32)
[2017-12-10] MEDS ORDERED: Potassium Chloride 20 MEQ TAB PO SCH (09:00)
[2017-12-10] MEDS ORDERED: Metolazone 5 MG TAB PO SCH (09:00)
--- NOTE | 2017-12-10 14:30 | PRG ---
DATE OF SERVICE: 12/10/2017 SUBJECTIVE: Ms. Ivory is doing well today. No complaints. She had a good diuresis. PHYSICAL EXAMINATION: VITAL SIGNS: Blood pressure 132/70, pulse 70. LUNGS: Clear. CARDIAC: Normal S1, S2. ABDOMEN: Soft, nontender. EXTREMITIES: There is moderate edema. ASSESSMENT: 1. Congestive heart failure, mostly diastolic, improved. 2. Renal failure, actually has improved. Creatinine is 1.25. PLAN: Okay with me to go home on the home dose of diuretics. We will sign off. Please let us know if we could be of any assistance.
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
[2017-12-10] MEDS: cefTRIAXone\\ROCEPHIN 1 GM, Syringe 0.4 ML in Sterile Water 9.6 ML SLOW IVP SCH (16:47)
[2017-12-10] MEDS: Famotidine 20 MG TAB PO SCH (20:30)
[2017-12-10] MEDS: Lorazepam 0.5 MG TAB PO SCH (20:30)
[2017-12-11] MEDS: oxyCODONE 5 MG TAB PO PRN ×4 (04:08→18:42)
[2017-12-11] MEDS: HumaLOG 300 UNITS/3 ML VIAL SC PRN ×3 (05:08→20:49)
[2017-12-11] MEDS: Furosemide 40 MG/4 ML VIAL SLOW IVP SCH ×2 (05:08→14:52)
[2017-12-11] MEDS: Levothyroxine 150 MCG TAB PO SCH (05:08)
[2017-12-11] MEDS: traMADol HCl 50 MG TAB PO PRN (05:41)
[2017-12-11] MEDS: Amiodarone 200 MG TAB PO SCH (08:40)
[2017-12-11] MEDS: Ferrous Sulfate 325 MG TAB PO SCH ×2 (08:40→16:20)
[2017-12-11] MEDS: Atorvastatin Calcium 10 MG TAB PO SCH (08:41)
[2017-12-11] MEDS: Carvedilol 6.25 MG TAB PO SCH ×2 (08:41→20:30)
[2017-12-11] MEDS: Aspirin 81 mg Enteric Coated Tablet PO SCH (08:41)
[2017-12-11] MEDS: Heparin 5,000 UNITS/ML VIAL SC SCH ×3 (08:41→20:33)
[2017-12-11] MEDS: Docusate 100 MG CAP PO SCH ×2 (08:41→20:32)
[2017-12-11] MEDS: Gabapentin 300 MG CAP PO SCH ×3 (08:41→20:30)
[2017-12-11] MEDS: Insulin NPH/Reg Insulin Hm 300 UNITS/3 ML VIAL SC SCH (08:42)
[2017-12-11] MEDS: Isosorbide Mononitrate 20 MG TAB PO SCH ×2 (08:43→20:31)
[2017-12-11] MEDS: predniSONE 5 MG TAB PO SCH (08:43)
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
[2017-12-11] MEDS ORDERED: Methyl Salicylate/Menthol 85 GM TUBE TOP PRN (13:22)
[2017-12-11] MEDS: cefTRIAXone\\ROCEPHIN 1 GM, Syringe 0.4 ML in Sterile Water 9.6 ML SLOW IVP SCH (16:19)
[2017-12-11] MEDS ORDERED: Polyethylene Glycol 3350 17 GM Packet PO PRN (20:25)
[2017-12-11] MEDS ORDERED: Senokot 8.6 MG TAB PO SCH (20:30)
[2017-12-11] MEDS: Famotidine 20 MG TAB PO SCH (20:31)
[2017-12-11] MEDS: Lorazepam 0.5 MG TAB PO SCH (20:31)
[2017-12-12] MEDS: oxyCODONE 5 MG TAB PO PRN ×4 (01:43→19:48)
[2017-12-12 04:27] LABS: #Lymphocytes 2.4 thou/uL (1.20-3.40); #Monocytes 0.9 thou/uL (0.11-0.59); #Neutrophils 3.4 thou/uL (1.40-6.50); %Basophils 0.7 % (0.0-1.0); %Eosinophils 0.6 % (0.0-10.0); %Lymphocytes 35.1 % (21.0-51.0); %Monocytes 13.8 % (0.0-10.0); %Neutrophils 49.8 % (42.0-75.0); Hemoglobin 11.6 g/dL (12.0-16.0); Mean Corpuscular HGB CONC 31.4 g/dL (32.0-36.0); Mean Corpuscular Volume 92.3 fl (81.0-99.0); Mean Platelet Volume 7.1 fL (7.4-10.4); Platelet Count 223 thou/uL (130-400); RBC Distribution Width 14.8 % (11.5-14.5); Red Blood Cell (RBC) Count 4.01 mill/uL (4.20-5.40); White Blood Cell (WBC) Count 6.8 thou/uL (4.8-10.8)
[2017-12-12 04:40] LABS: Anion Gap 15 mmol/L (10-20); BUN (Urea Nitrogen) 37 mg/dL (9.8-20.1); Calc. Creatinine Clearance 36 mL/min (70-130); Carbon Dioxide 32 mmol/L (23-31); Chloride 96 mmol/L (98-107); Estimated GFR-MDRD 34; Glucose 198 mg/dL (83-110); Potassium 3.8 mmol/L (3.5-5.1); Sodium 139 mmol/L (136-145)
[2017-12-12] MEDS: Furosemide 40 MG/4 ML VIAL SLOW IVP SCH ×2 (05:25→13:32)
[2017-12-12] MEDS: Levothyroxine 150 MCG TAB PO SCH (05:25)
[2017-12-12] MEDS: Acetaminophen 325 MG TAB PO PRN (05:39)
[2017-12-12] MEDS: traMADol HCl 50 MG TAB PO PRN (05:39)
[2017-12-12] MEDS: HumaLOG 300 UNITS/3 ML VIAL SC PRN ×3 (06:42→18:23)
[2017-12-12] MEDS: Ferrous Sulfate 325 MG TAB PO SCH ×2 (08:40→17:03)
[2017-12-12] MEDS: Docusate 100 MG CAP PO SCH ×2 (08:41→19:46)
[2017-12-12] MEDS: Amiodarone 200 MG TAB PO SCH (08:41)
[2017-12-12] MEDS: Aspirin 81 mg Enteric Coated Tablet PO SCH (08:41)
[2017-12-12] MEDS: Atorvastatin Calcium 10 MG TAB PO SCH (08:41)
[2017-12-12] MEDS: Carvedilol 6.25 MG TAB PO SCH ×2 (08:41→19:46)
[2017-12-12] MEDS: Heparin 5,000 UNITS/ML VIAL SC SCH ×3 (08:42→19:47)
[2017-12-12] MEDS: Gabapentin 300 MG CAP PO SCH ×3 (08:42→19:47)
[2017-12-12] MEDS: Insulin NPH/Reg Insulin Hm 300 UNITS/3 ML VIAL SC SCH (08:42)
[2017-12-12] MEDS: predniSONE 5 MG TAB PO SCH (08:43)
[2017-12-12] MEDS: Potassium Chloride 20 MEQ TAB PO SCH (08:43)
[2017-12-12] MEDS: Isosorbide Mononitrate 20 MG TAB PO SCH ×2 (08:43→19:47)
--- NOTE | 2017-12-12 08:44 | EKG ---
Test Reason : C/O CHEST PAIN Blood Pressure : / mmHG Vent. Rate : 066 BPM Atrial Rate : 066 BPM P-R Int : 206 ms QRS Dur : 074 ms QT Int : 448 ms P-R-T Axes : 065 -12 097 degrees QTc Int : 469 ms Normal sinus rhythm Inferior infarct (cited on or before 24-OCT-2017) Abnormal ECG Confirmed by ALIE TURPIN MD ([id number]) on 12/12/2017 8:44:24 AM Referred By: MAYUR Confirmed By:ALIE TURPIN MD
[2017-12-12] MEDS ORDERED: Lubiprostone 24 MCG CAP PO SCH (12:15)
[2017-12-12] MEDS: cefTRIAXone\\ROCEPHIN 1 GM, Syringe 0.4 ML in Sterile Water 9.6 ML SLOW IVP SCH (17:02)
[2017-12-12] MEDS: Famotidine 20 MG TAB PO SCH (19:46)
[2017-12-12] MEDS: Lorazepam 0.5 MG TAB PO SCH (19:48)
[2017-12-12] MEDS: Lubiprostone 24 MCG CAP PO SCH (19:48)
[2017-12-13] MEDS: oxyCODONE 5 MG TAB PO PRN ×3 (00:24→09:40)
[2017-12-13] MEDS: Acetaminophen 325 MG TAB PO PRN (02:44)
[2017-12-13] MEDS: traMADol HCl 50 MG TAB PO PRN (02:45)
[2017-12-13] MEDS: Levothyroxine 150 MCG TAB PO SCH (05:34)
[2017-12-13] MEDS: HumaLOG 300 UNITS/3 ML VIAL SC PRN (05:37)
[2017-12-13] MEDS: Furosemide 40 MG/4 ML VIAL SLOW IVP SCH ×2 (05:39→14:00)
[2017-12-13 08:32] VITALS: BP 129/67; TEMP 97.5
[2017-12-13] MEDS: Potassium Chloride 20 MEQ TAB PO SCH (09:04)
[2017-12-13] MEDS: Amiodarone 200 MG TAB PO SCH (09:04)
[2017-12-13] MEDS: Aspirin 81 mg Enteric Coated Tablet PO SCH (09:04)
[2017-12-13] MEDS: Atorvastatin Calcium 10 MG TAB PO SCH (09:05)
[2017-12-13] MEDS: predniSONE 5 MG TAB PO SCH (09:05)
[2017-12-13] MEDS: Docusate 100 MG CAP PO SCH (09:06)
[2017-12-13] MEDS: Gabapentin 300 MG CAP PO SCH (09:06)
[2017-12-13] MEDS: Isosorbide Mononitrate 20 MG TAB PO SCH (09:06)
[2017-12-13] MEDS: Carvedilol 6.25 MG TAB PO SCH (09:06)
[2017-12-13] MEDS: Ferrous Sulfate 325 MG TAB PO SCH (09:06)
[2017-12-13] MEDS: Heparin 5,000 UNITS/ML VIAL SC SCH (09:07)
[2017-12-13] MEDS: Lubiprostone 24 MCG CAP PO SCH (09:07)
[2017-12-13] MEDS: Insulin NPH/Reg Insulin Hm 300 UNITS/3 ML VIAL SC SCH (09:08)
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
== END 2017-12-13 14:35 | disposition home health service (06) | DRG 682 ==
LOC: ERS 13:53 → T4-B 16:35
PROVIDERS: ADMIT Internal Medicine; ATTEND Internal Medicine
PROC: 0D758ZZ Dilation of Esophagus, Via Natural or Artificial Opening Endoscopic (ICD-10-PCS; principal; 2017-12-09)
PROC: 0DB68ZX Excision of Stomach, Via Natural or Artificial Opening Endoscopic, Diagnostic (ICD-10-PCS; 2017-12-09)
DX: N17.9 Acute kidney failure, unspecified (principal); I50.33 Acute on chronic diastolic (congestive) heart failure; E46 Unspecified protein-calorie malnutrition; L89.322 Pressure ulcer of left buttock, stage 2; E11.22 Type 2 diabetes mellitus with diabetic chronic kidney disease; I48.0 Paroxysmal atrial fibrillation; I13.0 Hypertensive heart and chronic kidney disease with heart failure and stage 1 through stage 4 chronic kidney disease, or unspecified chronic kidney disease; N30.00 Acute cystitis without hematuria; B96.1 Klebsiella pneumoniae [K. pneumoniae] as the cause of diseases classified elsewhere; D63.1 Anemia in chronic kidney disease; I35.0 Nonrheumatic aortic (valve) stenosis; N18.3 Chronic kidney disease, stage 3 (moderate); R47.02 Dysphasia; K31.7 Polyp of stomach and duodenum; E86.0 Dehydration; R19.7 Diarrhea, unspecified; M48.02 Spinal stenosis, cervical region; S12.200D Unspecified displaced fracture of third cervical vertebra, subsequent encounter for fracture with routine healing; S12.300D Unspecified displaced fracture of fourth cervical vertebra, subsequent encounter for fracture with routine healing; S12.400D Unspecified displaced fracture of fifth cervical vertebra, subsequent encounter for fracture with routine healing; I25.10 Atherosclerotic heart disease of native coronary artery without angina pectoris; K21.9 Gastro-esophageal reflux disease without esophagitis; E87.6 Hypokalemia; I87.8 Other specified disorders of veins; Z79.4 Long term (current) use of insulin; Z79.52 Long term (current) use of systemic steroids; Z79.82 Long term (current) use of aspirin; Z95.5 Presence of coronary angioplasty implant and graft; Z68.27 Body mass index [BMI] 27.0-27.9, adult; Z88.5 Allergy status to narcotic agent
CPT/HCPCS: 36415; 36416; 71045; 72070; 72128; 72141; 74018; 74176; 80048; 80053; 81003; 81015; 83605; 83630; 83880; 84484; 85025; 87077; 87086; 87186; 88305; 88312; 93005; 93010; 96361; 96374; 96375; A4216; A4353; G8978-GP-CL; G8979-GP-CJ; J0696; J1644; J1885; J1940; J2001; J2270; J2704; Q0162

== ENCOUNTER 2017-12-22 13:25 | Observation (INO) | payer MEDICARE, BC ==
[2017-12-22 14:01] LABS: #Lymphocytes 1.6 thou/uL (1.20-3.40); #Neutrophils 10.9 thou/uL (1.40-6.50); %Eosinophils 0.2 % (0.0-10.0); %Lymphocytes 11.6 % (21.0-51.0); %Monocytes 7.1 % (0.0-10.0); %Neutrophils 81.1 % (42.0-75.0); Hemoglobin 14.7 g/dL (12.0-16.0); Mean Corpuscular HGB CONC 32.4 g/dL (32.0-36.0); Mean Corpuscular Hemoglobin 29.5 pg (27.0-31.0); Mean Corpuscular Volume 90.8 fl (81.0-99.0); Mean Platelet Volume 6.8 fL (7.4-10.4); Platelet Count 391 thou/uL (130-400); White Blood Cell (WBC) Count 13.5 thou/uL (4.8-10.8)
[2017-12-22 14:24] LABS: ALT (SGPT) 12 U/L (8-55); AST (SGOT) 25 U/L (5-34); Alkaline Phosphatase 106 U/L (40-150); Anion Gap 17 mmol/L (10-20); BUN (Urea Nitrogen) 62 mg/dL (9.8-20.1); Bilirubin, Total 0.6 mg/dL (0.2-1.2); Calc. Creatinine Clearance 0 mL/min (70-130); Carbon Dioxide 26 mmol/L (23-31); Chloride 94 mmol/L (98-107); Estimated GFR-MDRD 27; Globulin 3.7 g/dL (2.4-3.5); Glucose 112 mg/dL (83-110); Potassium 3.4 mmol/L (3.5-5.1); Protein, Total 7.7 g/dL (6.0-8.3); Sodium 134 mmol/L (136-145)
[2017-12-22 14:30] LABS: CKMB 3.2 ng/mL (0-6.6); Troponin I 0.041 ng/mL (< 0.028)
--- NOTE | 2017-12-22 14:42 | RAD ---
PORTABLE CHEST 1 VIEW: DATE: 12/22/17. TIME: 2:01 p.m. HISTORY: Altered mental status. FINDINGS: Comparison is made with the exam of 10/05/17. The heart size is enlarged. The aorta is tortuous. There is mild atelectatic change of the right radha ng base. No lobar consolidation, pneumothoraces, or large effusions are seen. There is evidence of old granulomatous disease. POS: [facility]
--- NOTE | 2017-12-22 14:44 | CT ---
CT BRAIN NONCONTRAST: HISTORY: An 82-year-old female with altered mental status. FINDINGS: There is no midline shift or any other mass effect. There is no evidence of acute intracranial hemor rhage, large cortical infarct, obstructive hydrocephalus, or extraaxial fluid collection. The calvar ium is intact. IMPRESSION: No acute intracranial findings. rashmi [] POS: [facility]
[2017-12-22 15:35] LABS: Bilirubin Negative (Negative); Blood, Urine Negative (Negative); Clarity CLEAR (Clear); Glucose, Urine (Dipstick) Negative (Negative); Leukocyte Negative (Negative); Nitrite Negative (Negative); Protein, Urine (Dipstick) Negative (Neg-Trace); Specific Gravity, Urine 1.017 (1.002-1.036); Urobilinogen 0.2 mg/dL (0.2-1.0); pH, Urine 5.5 (5.0-9.0)
[2017-12-22] MEDS ORDERED: Ondansetron ODT 4 MG TAB ONE (15:49)
[2017-12-22] MEDS ORDERED: Morphine 4 MG/ML VIAL ONE (15:49)
[2017-12-22] MEDS ORDERED: Aspirin 325 MG TAB ONE (16:05)
[2017-12-22 18:15] LABS: Troponin I 0.044 ng/mL (< 0.028)
[2017-12-22] MEDS ORDERED: Nitroglycerin 2% Ointment 1 INCH/1 GM Packet ONE (18:19)
[2017-12-22] MEDS ORDERED: traMADol HCl 50 MG TAB ONE (18:19)
--- NOTE | 2017-12-22 19:34 | RAD ---
SUPINE AND DECUBITUS IMAGING OF THE ABDOMEN AND PELVIS 12/22/17 COMPARISON: None. HISTORY: Altered mental status, abdominal distention, pain. FINDINGS: Supine imaging demonstrates no definite evidence for small bowel obstruction. There are a few mildly prominent gas filled loops of small bowel within the mid left abdomen, significance uncertain. The decubitus imaging is suboptimal as the right lateral aspect of the abdomen, including the right u pper quadrant is not fully assessed. Thus, free intraperitoneal air cannot be excluded on the basis o f this examination. The performing medical technologist generalist attempted to repeat the study, but the marylin ent refuses. IMPRESSION: No definite evidence for small bowel obstruction. Free intraperitoneal air cannot be excluded as the patient is not fully imaged on the right and refuses additional imaging. Recommend followup upright o r decubitus imaging when the patient is able. Code T POS: [facility]
[2017-12-22] MEDS ORDERED: Nitroglycerin 0.4 MG TAB (25 Tab Bottle) PO PRN (19:57)
[2017-12-22] MEDS ORDERED: Milk Of Magnesia 30 ML UDCUP PO PRN (19:57)
[2017-12-22] MEDS ORDERED: Ondansetron HCl/PF 4 MG/2 ML Vial IVP PRN (19:57)
[2017-12-22] MEDS ORDERED: Calcium Carbonate 500 MG ChewTAB PO PRN (19:57)
[2017-12-22] MEDS ORDERED: Senokot 8.6 MG TAB PO PRN (19:57)
[2017-12-22] MEDS ORDERED: Dextrose 50% Abboject 50 ML SYRINGE SLOW IVP PRN (20:13)
[2017-12-22] MEDS ORDERED: Dextrose 5% in Water 1,000 ML IV PRN (20:13)
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
[2017-12-22] MEDS: Nitroglycerin 2% Ointment 1 INCH/1 GM Packet TOP SCH (20:52)
[2017-12-22] MEDS: oxyCODONE 5 MG TAB PO PRN (20:53)
--- NOTE | 2017-12-22 20:55 | PDOC.PN ---
- Subjective Encounter Start Date: 12/22/17 Encounter Start Time: 16:00 Patient seen and examined. Note dictated. - Objective Resuscitation Status: Resuscitation Status FULL:Full Resuscitation Result Diagrams: 12/22/17 13:56 12/22/17 13:56 Radiology Reviewed by me: Yes (CXR - no CHF) EKG Reviewed by me: Yes (SR) Phys Exam - Physical Examination Constitutional: NAD HEENT: PERRLA, moist MMs, sclera anicteric Neck: no nodes, no JVD, supple Respiratory: no wheezing, no rhonchi, clear to auscultation bilateral Scat rales at bases Cardiovascular: RRR, no rub 3/6 ARIELA A area, S1S2 + Gastrointestinal: soft, non-tender, no distention, positive bowel sounds Musculoskeletal: pulses present, edema present Chronic venous stasis Neurological: non-focal, normal sensation, moves all 4 limbs Lymphatic: no nodes (neck) Psychiatric: normal affect, A&O x 3 Skin: no rash Dx/Plan - Plan DVT proph w/SCDs * Dictated. Review of Systems - Review of Systems Constitutional: weakness (gen). negative: fever, chills, sweats, malaise, other Eyes: negative: Pain, Vision Change, Conjunctivae Inflammation, Eyelid Inflammation, Redness, Other ENT: negative: Ear Pain, Ear Discharge, Nose Pain, Nose Discharge, Nose Congestion, Mouth Pain, Mouth Swelling, Throat Pain, Throat Swelling, Other Respiratory: negative: Cough, Dry, Shortness of Breath, Hemoptysis, SOB with Excertion, Pleuritic Pain, Sputum, Wheezing Cardiovascular: chest pain. negative: palpitations, orthopnea, paroxysmal nocturnal dyspnea, edema, light headedness, other Gastrointestinal: Nausea. negative: Vomiting, Abdominal Pain, Diarrhea, Constipation, Melena, Hematochezia, Other Genitourinary: negative: Dysuria, Frequency, Incontinence, Hematuria, Retention , Other Musculoskeletal: negative: Neck Pain, Shoulder Pain, Arm Pain, Back Pain, Hand Pain, Leg Pain, Foot Pain, Other Skin: negative: Rash, Lesions, Carroll, Bruising, Other Neurological: negative: Weakness, Numbness, Incoordination, Change in Speech, Confusion, Seizures, Other - Medications/Allergies Allergies/Adverse Reactions: Allergies Allergy/AdvReac Type Severity Reaction Status Date / Time hydrocodone [From [place]] Allergy Verified 10/08/17 00:28 Medications: Current Medications Acetaminophen (Tylenol) 650 mg PO Q4H PRN PRN Reason: Headache/Fever or Mild Pain Amiodarone HCl (Cordarone) 200 mg PO DAILY [facility] Aspirin (Ecotrin) 81 mg PO DAILY [facility] Atorvastatin Calcium (Lipitor) 10 mg PO DAILY [facility] Calcium Carbonate (Tums) 1,000 mg PO Q4H PRN PRN Reason: Heartburn or Indigestion Dextrose/Water (Dextrose 50%) 25 gm SLOW IVP PRN PRN PRN Reason: Hypoglycemia Docusate Sodium (Colace) 100 mg PO BID [facility] Gabapentin (Neurontin) 600 mg PO TID [facility] Glucagon (Glucagon) 1 mg IM PRN PRN PRN Reason: Hypoglycemia Dextrose/Water (D5w) 1,000 mls @ 0 mls/hr IV .Q0M PRN; As Directed PRN Reason: Hypoglycemia Insulin Human Regular (Humulin R) 0 units SC .MILD SLIDING SCALE PRN PRN Reason: Mild Correctional Scale Insulin Human Regular (Humulin R) 0 units SC .BEDTIME SLIDING SC PRN PRN Reason: Bedtime Correctional Scale Levothyroxine Sodium (Synthroid) 150 mcg PO 0600 [facility] Lorazepam (Ativan) 0.5 mg PO HS [facility] Magnesium Hydroxide (Milk Of Magnesium) 30 ml PO DAILYPRN PRN PRN Reason: Constipation Nitroglycerin (Nitro-Bid 2% Ointment) 0.5 inch TOP Q8H [facility] Last Admin: 12/22/17 20:52 Dose: Not Given Nitroglycerin (Nitrostat) 0.4 mg PO Q5MIN PRN PRN Reason: Chest Pain Ondansetron HCl (Zofran) 4 mg IVP Q6H PRN PRN Reason: Nausea/Vomiting Oxycodone HCl (Oxycodone Ir) 5 mg PO Q8H PRN PRN Reason: Severe Pain (7-10) Last Admin: 12/22/17 20:53 Dose: 5 mg Pantoprazole Sodium (Protonix) 40 mg PO 2100 [facility] Potassium Chloride (Klor-Con) 20 meq PO BID [facility] Prednisone (Prednisone) 10 mg PO DAILY [facility] Senna (Senokot) 2 tab PO HSPRN PRN PRN Reason: Constipation Senna/Docusate Sodium (Senokot S) 1 tab PO BID [facility] Sodium Chloride (Flush - Normal Saline) 10 ml IVF PRN PRN PRN Reason: Saline Flush Torsemide (Demadex) 20 mg PO BID@0900,1400 [facility] Tramadol HCl (Ultram) 50 mg PO Q4H PRN PRN Reason: Moderate Pain (4-6)
[2017-12-22] MEDS: Lorazepam 0.5 MG TAB PO SCH (20:59)
[2017-12-22] MEDS: Docusate 100 MG CAP PO SCH (20:59)
[2017-12-22] MEDS: Gabapentin 300 MG CAP PO SCH (20:59)
[2017-12-22] MEDS: Senokot S 8.6-50 MG TAB PO SCH (20:59)
[2017-12-22 21:02] LABS: Troponin I 0.044 ng/mL (< 0.028)
[2017-12-22] MEDS ORDERED: Potassium Chloride 20 MEQ TAB PO SCH (23:00)
[2017-12-22 23:25] VITALS: BMI 23.8
[2017-12-23] MEDS: Nitroglycerin 2% Ointment 1 INCH/1 GM Packet TOP SCH ×2 (00:56→08:38)
[2017-12-23] MEDS: oxyCODONE 5 MG TAB PO PRN ×3 (05:18→20:38)
[2017-12-23] MEDS: Levothyroxine 150 MCG TAB PO SCH (05:18)
[2017-12-23 05:25] LABS: Albumin 3.6 g/dL (3.4-4.8); Anion Gap 12 mmol/L (10-20); BUN (Urea Nitrogen) 59 mg/dL (9.8-20.1); BUN/Creatinine Ratio 40.41; Calc. Creatinine Clearance 33 mL/min (70-130); Calcium 9.4 mg/dL (7.8-10.44); Carbon Dioxide 30 mmol/L (23-31); Chloride 99 mmol/L (98-107); Estimated GFR-MDRD 34; Glucose 76 mg/dL (83-110); Magnesium 1.7 mg/dL (1.6-2.6); Phosphorus 3.1 mg/dL (2.3-4.7); Potassium 3.3 mmol/L (3.5-5.1); Sodium 138 mmol/L (136-145)
[2017-12-23] MEDS: Acetaminophen 325 MG TAB PO PRN ×3 (06:22→16:39)
[2017-12-23] MEDS: Gabapentin 300 MG CAP PO SCH ×3 (08:30→20:07)
[2017-12-23] MEDS: Potassium Chloride 20 MEQ TAB PO SCH ×3 (08:30→16:40)
[2017-12-23] MEDS: Docusate 100 MG CAP PO SCH ×2 (08:31→20:08)
[2017-12-23] MEDS: predniSONE 20 MG TAB PO SCH (08:31)
[2017-12-23] MEDS: Aspirin 81 mg Enteric Coated Tablet PO SCH (08:31)
[2017-12-23] MEDS: Senokot S 8.6-50 MG TAB PO SCH ×2 (08:31→20:08)
[2017-12-23] MEDS: Atorvastatin Calcium 10 MG TAB PO SCH (08:31)
[2017-12-23] MEDS: Amiodarone 200 MG TAB PO SCH (08:32)
[2017-12-23] MEDS: traMADol HCl 50 MG TAB PO PRN ×2 (08:33→16:39)
[2017-12-23] MEDS ORDERED: Potassium Chloride 20 MEQ TAB PO SCH (09:00)
[2017-12-23] MEDS: Torsemide 20 MG TAB PO SCH ×2 (09:43→14:01)
[2017-12-23] MEDS ORDERED: Polyethylene Glycol 3350 17 GM Packet PO PRN (13:48)
--- NOTE | 2017-12-23 15:46 | PDOC.PN ---
- Subjective Encounter Start Date: 12/23/17 Encounter Start Time: 14:30 Patient seen and examined for CP. Still has CP. No overnight events - Objective Resuscitation Status: Resuscitation Status FULL:Full Resuscitation MAR Reviewed: Yes Vital Signs & Weight: Vital Signs (12 hours) Temp Pulse Pulse Resp BP BP BP 12/23/17 13:35 97.8 F 66 16 136/62 12/23/17 10:35 70 163/71 H 12/23/17 09:55 161/74 H 12/23/17 08:56 97.7 F 68 18 180/83 H 12/23/17 08:45 97.7 F 68 18 12/23/17 04:00 97.6 F 73 20 144/69 H Pulse Ox 12/23/17 13:35 95 12/23/17 10:35 12/23/17 09:55 12/23/17 08:56 97 12/23/17 08:45 12/23/17 04:00 98 Weight Admit Weight 156 lb 8 oz Weight 156 lb 8 oz I&O: 12/22/17 12/23/17 12/24/17 06:59 06:59 06:59 Intake Total 350 Output Total 700 200 Balance -350 -200 Result Diagrams: 12/22/17 13:56 12/23/17 04:50 Additional Labs: Accuchecks 12/23/17 12/23/17 12/22/17 11:04 05:55 21:08 POC Glucose 176 H 72 95 Radiology Reviewed by me: Yes (KUB - no SBO) EKG Reviewed by me: Yes (Tele SR) Phys Exam - Physical Examination Constitutional: NAD Neck: no JVD Respiratory: no wheezing, no rales, no rhonchi, clear to auscultation bilateral Cardiovascular: RRR, no rub no heaves/pulsations, S1S2 + Gastrointestinal: soft, non-tender, no distention, positive bowel sounds Musculoskeletal: no edema Neurological: non-focal, normal sensation, moves all 4 limbs Psychiatric: normal affect, A&O x 3 Skin: no rash Dx/Plan - Plan DVT proph w/SCDs IMPRESSION: 1. Chest discomfort with nausea and intermittent vomiting. 2. CAD with elevated troponins due to ?demand ischemia 2. Diabetes mellitus type 2. 3. Chronic diastolic heart failure, appears to be compensated. 4. Chronic pain syndrome, on chronic narcotics. 5. Mild ANUM on CKD 3 - Cr improving 6. Hyponatremia/hypokalemia probably secondary to diuretics. 7. Recent esophagogastroduodenoscopy that showed gastric polyp. PLAN: * Cont ASA * Cont current meds as below * AM labs * Replace Potassium * Await Cardio input * Cont sliding scale * Zofran PRN for nausea - will monitor QT Review of Systems - Review of Systems Respiratory: negative: Cough, Dry, Shortness of Breath, Hemoptysis, SOB with Excertion, Pleuritic Pain, Sputum, Wheezing Cardiovascular: chest pain. negative: palpitations, orthopnea, paroxysmal nocturnal dyspnea, edema, light headedness, other Gastrointestinal: negative: Nausea, Vomiting, Abdominal Pain, Diarrhea, Constipation, Melena, Hematochezia, Other - Medications/Allergies Allergies/Adverse Reactions: Allergies Allergy/AdvReac Type Severity Reaction Status Date / Time hydrocodone [From [place]] Allergy Verified 10/08/17 00:28 Medications: Current Medications Acetaminophen (Tylenol) 650 mg PO Q4H PRN PRN Reason: Headache/Fever or Mild Pain Last Admin: 12/23/17 09:43 Dose: 650 mg Amiodarone HCl (Cordarone) 200 mg PO DAILY [facility] Last Admin: 12/23/17 08:32 Dose: 200 mg Aspirin (Ecotrin) 81 mg PO DAILY [facility] Last Admin: 12/23/17 08:31 Dose: 81 mg Atorvastatin Calcium (Lipitor) 10 mg PO DAILY [facility] Last Admin: 12/23/17 08:31 Dose: 10 mg Calcium Carbonate (Tums) 1,000 mg PO Q4H PRN PRN Reason: Heartburn or Indigestion Dextrose/Water (Dextrose 50%) 25 gm SLOW IVP PRN PRN PRN Reason: Hypoglycemia Docusate Sodium (Colace) 100 mg PO BID [facility] Last Admin: 12/23/17 08:31 Dose: 100 mg Gabapentin (Neurontin) 600 mg PO TID [facility] Last Admin: 12/23/17 14:02 Dose: 600 mg Glucagon (Glucagon) 1 mg IM PRN PRN PRN Reason: Hypoglycemia Dextrose/Water (D5w) 1,000 mls @ 0 mls/hr IV .Q0M PRN; As Directed PRN Reason: Hypoglycemia Insulin Human Regular (Humulin R) 0 units SC .MILD SLIDING SCALE PRN PRN Reason: Mild Correctional Scale Insulin Human Regular (Humulin R) 0 units SC .BEDTIME SLIDING SC PRN PRN Reason: Bedtime Correctional Scale Levothyroxine Sodium (Synthroid) 150 mcg PO 0600 [facility] Last Admin: 12/23/17 05:18 Dose: 150 mcg Lorazepam (Ativan) 0.5 mg PO HS [facility] Last Admin: 12/22/17 20:59 Dose: 0.5 mg Magnesium Hydroxide (Milk Of Magnesium) 30 ml PO DAILYPRN PRN PRN Reason: Constipation Nitroglycerin (Nitrostat) 0.4 mg PO Q5MIN PRN PRN Reason: Chest Pain Ondansetron HCl (Zofran) 4 mg IVP Q6H PRN PRN Reason: Nausea/Vomiting Last Admin: 12/23/17 13:58 Dose: 4 mg Ondansetron HCl (Zofran Odt) 4 mg PO Q6H PRN PRN Reason: Nausea/Vomiting Oxycodone HCl (Oxycodone Ir) 5 mg PO Q8H PRN PRN Reason: Severe Pain (7-10) Last Admin: 12/23/17 11:33 Dose: 5 mg Pantoprazole Sodium (Protonix) 40 mg PO 2100 [facility] Polyethylene Glycol (Miralax) 17 gm PO DAILY PRN PRN Reason: Constipation Potassium Chloride (K-Dur) 20 meq PO TID-WM [facility] Last Admin: 12/23/17 11:36 Dose: 20 meq Prednisone (Prednisone) 10 mg PO DAILY [facility] Last Admin: 12/23/17 08:31 Dose: 10 mg Senna (Senokot) 2 tab PO HSPRN PRN PRN Reason: Constipation Last Admin: 12/23/17 08:31 Dose: 2 tab Senna/Docusate Sodium (Senokot S) 1 tab PO BID [facility] Last Admin: 12/23/17 08:31 Dose: 1 tab Sodium Chloride (Flush - Normal Saline) 10 ml IVF PRN PRN PRN Reason: Saline Flush Torsemide (Demadex) 20 mg PO BID@0900,1400 [facility] Last Admin: 12/23/17 14:01 Dose: 20 mg Tramadol HCl (Ultram) 50 mg PO Q4H PRN PRN Reason: Moderate Pain (4-6) Last Admin: 12/23/17 08:33 Dose: 50 mg
[2017-12-23] MEDS: Ondansetron ODT 4 MG TAB PO PRN (17:51)
[2017-12-23] MEDS: Insulin Regular 300 UNITS/3 ML VIAL SC PRN ×2 (18:23→21:06)
[2017-12-23] MEDS ORDERED: Metolazone 5 MG TAB PO SCH (18:45)
[2017-12-23] MEDS: Lorazepam 0.5 MG TAB PO SCH (20:08)
--- NOTE | 2017-12-23 20:54 | PRG ---
DATE OF SERVICE: 12/23/2017 SUBJECTIVE: Ms. Ivory came back to the hospital complaining of chest pressure yesterday. She is do ing better today. OBJECTIVE: VITAL SIGNS: Her blood pressure was high 146/67, pulse 75. LUNGS: Clear. CARDIAC: Normal S1, S2. ABDOMEN: Soft, nontender. EXTREMITIES: Moderate edema. The patient does have a 2-3/6 systolic murmur. LABORATORY DATA: Review of the test, she had a cardiac catheterization last fall. There was no rest enosis in her stent. The echo revealed ejection fraction to my interpretation 60%-65%. There is mod erate aortic stenosis, peak gradient 40 mmHg, mean gradient 20 mmHg, valve area 1.3. The patient forman s have diastolic heart failure. ASSESSMENT: 1. Diastolic heart failure. 2. Moderate aortic stenosis. 3. Coronary artery disease appears stable. 4. Paroxysmal atrial fibrillation maintaining sinus rhythm. PLAN: 1. Continue diuretic therapy. 2. Give her a dose of metolazone tomorrow, difficult situation will be glad to follow with you.
[2017-12-24] MEDS: traMADol HCl 50 MG TAB PO PRN ×3 (01:58→15:35)
[2017-12-24] MEDS: Levothyroxine 150 MCG TAB PO SCH (05:05)
[2017-12-24] MEDS: oxyCODONE 5 MG TAB PO PRN ×3 (05:05→21:14)
[2017-12-24 05:19] LABS: Anion Gap 17 mmol/L (10-20); BUN (Urea Nitrogen) 59 mg/dL (9.8-20.1); Calc. Creatinine Clearance 28 mL/min (70-130); Calcium 9.8 mg/dL (7.8-10.44); Carbon Dioxide 30 mmol/L (23-31); Chloride 94 mmol/L (98-107); Estimated GFR-MDRD 28; Glucose 307 mg/dL (83-110); Potassium 3.7 mmol/L (3.5-5.1); Sodium 137 mmol/L (136-145)
[2017-12-24] MEDS: Aspirin 81 mg Enteric Coated Tablet PO SCH (08:49)
[2017-12-24] MEDS: Senokot S 8.6-50 MG TAB PO SCH ×2 (08:50→20:53)
[2017-12-24] MEDS: Gabapentin 300 MG CAP PO SCH ×3 (08:50→20:53)
[2017-12-24] MEDS: Amiodarone 200 MG TAB PO SCH (08:50)
[2017-12-24] MEDS: Docusate 100 MG CAP PO SCH ×2 (08:50→20:53)
[2017-12-24] MEDS: Atorvastatin Calcium 10 MG TAB PO SCH (08:53)
[2017-12-24] MEDS: Potassium Chloride 20 MEQ TAB PO SCH ×3 (08:53→17:20)
[2017-12-24] MEDS: Carvedilol 3.125 MG TAB PO SCH ×2 (08:53→17:20)
[2017-12-24] MEDS: predniSONE 20 MG TAB PO SCH (08:54)
[2017-12-24] MEDS: Torsemide 20 MG TAB PO SCH ×2 (08:55→15:35)
[2017-12-24] MEDS: Insulin Detemir 100 UNITS/ML 15 UNITS in Pre-Filled Syringe 1 EACH SC SCH (09:04)
--- NOTE | 2017-12-24 16:39 | PRG ---
DATE OF SERVICE: 12/24/2017 CARDIOLOGY FOLLOWUP SUBJECTIVE: Ms. Ivory is doing better. She is up and awake, feels better. She states that her [place] and vomiting have resolved. OBJECTIVE: VITAL SIGNS: Her blood pressure is 125/67, earlier it was 193/86, pulse is in the 60s. LUNGS: Clear. CARDIAC: Normal S1, normal S2. With aortic murmur as before. ABDOMEN: Soft and nontender. ASSESSMENT: 1. Nausea and vomiting, improved. 2. Diastolic heart failure. 3. Coronary artery disease, appears stable. 4. Aortic stenosis. I have reviewed the echocardiogram again. It looks like it is only moderate ao rtic stenosis with a peak gradient of 40 mmHg systolic, the mean gradient about 18 mmHg systolic, marlon ve area 1.3 cm2. PLAN: 1. To go home tomorrow on Coreg 3.125 mg twice a day. 2. Torsemide, resume home dose. 3. Metolazone, she takes twice a week. 4. Consideration for outpatient ultrasound of the vein. She has severe lower extremity edema, some venous insufficiency, could probably benefit from a venous ablation. Clearly has varicose veins, bethany ecially in the left. As mentioned, the aortic valve does not look like it severe aortic stenosis. I t is not clear to me that aortic valve replacement would help based on the evidence we have now. She continues to have diastolic heart failure, which is very difficult to control. Could consider right and left heart catheterization with a dual lumen pigtail to more precisely measure the valve size. For now, continue medical therapy. PROGNOSIS: [facility], guarded.
[2017-12-24] MEDS: Insulin Regular 300 UNITS/3 ML VIAL SC PRN ×2 (17:22→21:06)
[2017-12-24] MEDS: Acetaminophen 325 MG TAB PO PRN (18:23)
[2017-12-24] MEDS: Lorazepam 0.5 MG TAB PO SCH (20:53)
[2017-12-24] MEDS ORDERED: Insulin Detemir 100 UNITS/ML 15 UNITS in Pre-Filled Syringe SC SCH (21:00)
--- NOTE | 2017-12-24 21:33 | PDOC.PN ---
- Subjective Encounter Start Date: 12/24/17 Encounter Start Time: 16:30 Patient seen and examined for CP. Still has CP on and off. No overnight events - Objective Resuscitation Status: Resuscitation Status FULL:Full Resuscitation MAR Reviewed: Yes Vital Signs & Weight: Vital Signs (12 hours) Temp Pulse Resp BP BP Pulse Ox 12/24/17 19:25 98.5 F 65 18 165/104 H 96 12/24/17 16:00 98.7 F 67 17 142/65 H 93 L 12/24/17 12:58 98.9 F 64 16 125/57 L 95 Weight Admit Weight 156 lb 8 oz Weight 156 lb 8 oz I&O: 12/23/17 12/24/17 12/25/17 06:59 06:59 06:59 Intake Total 350 1820 1440 Output Total 700 1280 1650 Balance -350 540 -210 Result Diagrams: 12/22/17 13:56 12/24/17 04:48 Additional Labs: Accuchecks 12/24/17 12/24/17 12/24/17 20:43 16:10 11:45 POC Glucose 208 H 344 H 273 H 12/24/17 05:55 POC Glucose 251 H EKG Reviewed by me: Yes (Tele SR) Phys Exam - Physical Examination Constitutional: NAD Respiratory: no wheezing, no rhonchi Cardiovascular: RRR, no rub Gastrointestinal: soft, non-tender, positive bowel sounds Musculoskeletal: edema present Neurological: moves all 4 limbs Dx/Plan - Plan DVT proph w/SCDs IMPRESSION: 1. Chest discomfort with nausea and intermittent vomiting. 2. CAD with elevated troponins due to ?demand ischemia. on ASA 2. Diabetes mellitus type 2. 3. Chronic diastolic heart failure, appears to be compensated. 4. Chronic pain syndrome, on chronic narcotics. 5. Mild ANUM on CKD 3 - Cr improving 6. Hyponatremia/hypokalemia probably secondary to diuretics. 7. Recent esophagogastroduodenoscopy that showed gastric polyp. PLAN: * Cont PPI (Protonix seems to be working better than Prilosec) * Cont current meds as below * AM labs * Cardio following. * Cont sliding scale * DC once cleared by Cardio Review of Systems - Review of Systems Respiratory: SOB with Excertion. negative: Cough, Dry, Shortness of Breath, Hemoptysis, Pleuritic Pain, Sputum, Wheezing Gastrointestinal: negative: Nausea, Vomiting, Abdominal Pain, Diarrhea, Constipation, Melena, Hematochezia, Other - Medications/Allergies Allergies/Adverse Reactions: Allergies Allergy/AdvReac Type Severity Reaction Status Date / Time hydrocodone [From [place]] Allergy Verified 10/08/17 00:28 Medications: Current Medications Acetaminophen (Tylenol) 650 mg PO Q4H PRN PRN Reason: Headache/Fever or Mild Pain Last Admin: 12/24/17 18:23 Dose: 650 mg Amiodarone HCl (Cordarone) 200 mg PO DAILY [facility] Last Admin: 12/24/17 08:50 Dose: 200 mg Aspirin (Ecotrin) 81 mg PO DAILY [facility] Last Admin: 12/24/17 08:49 Dose: 81 mg Atorvastatin Calcium (Lipitor) 10 mg PO DAILY [facility] Last Admin: 12/24/17 08:53 Dose: 10 mg Calcium Carbonate (Tums) 1,000 mg PO Q4H PRN PRN Reason: Heartburn or Indigestion Carvedilol (Coreg) 3.125 mg PO BID[facility] Last Admin: 12/24/17 17:20 Dose: 3.125 mg Dextrose/Water (Dextrose 50%) 25 gm SLOW IVP PRN PRN PRN Reason: Hypoglycemia Docusate Sodium (Colace) 100 mg PO BID [facility] Last Admin: 12/24/17 20:53 Dose: 100 mg Gabapentin (Neurontin) 600 mg PO TID [facility] Last Admin: 12/24/17 20:53 Dose: 600 mg Glucagon (Glucagon) 1 mg IM PRN PRN PRN Reason: Hypoglycemia Dextrose/Water (D5w) 1,000 mls @ 0 mls/hr IV .Q0M PRN; As Directed PRN Reason: Hypoglycemia Insulin Detemir 15 units/ (Miscellaneous Medication) 0.15 mls @ 0 mls/hr SC QAM [facility] Last Admin: 12/24/17 09:04 Dose: 0.15 mls Insulin Detemir 15 units/ (Miscellaneous Medication) 0.15 mls @ 0 mls/hr SC HS [facility] Last Admin: 12/24/17 21:05 Dose: 0.15 mls Insulin Human Regular (Humulin R) 0 units SC .MILD SLIDING SCALE PRN PRN Reason: Mild Correctional Scale Last Admin: 12/24/17 17:22 Dose: 5 units Insulin Human Regular (Humulin R) 0 units SC .BEDTIME SLIDING SC PRN PRN Reason: Bedtime Correctional Scale Last Admin: 12/24/17 21:06 Dose: 2 unit Levothyroxine Sodium (Synthroid) 150 mcg PO 0600 [facility] Last Admin: 12/24/17 05:05 Dose: 150 mcg Lorazepam (Ativan) 0.5 mg PO HS [facility] Last Admin: 12/24/17 20:53 Dose: 0.5 mg Magnesium Hydroxide (Milk Of Magnesium) 30 ml PO DAILYPRN PRN PRN Reason: Constipation Last Admin: 12/24/17 21:04 Dose: 30 ml Nitroglycerin (Nitrostat) 0.4 mg PO Q5MIN PRN PRN Reason: Chest Pain Ondansetron HCl (Zofran) 4 mg IVP Q6H PRN PRN Reason: Nausea/Vomiting Last Admin: 12/23/17 13:58 Dose: 4 mg Ondansetron HCl (Zofran Odt) 4 mg PO Q6H PRN PRN Reason: Nausea/Vomiting Last Admin: 12/23/17 17:51 Dose: 4 mg Oxycodone HCl (Oxycodone Ir) 5 mg PO Q8H PRN PRN Reason: Severe Pain (7-10) Last Admin: 12/24/17 21:14 Dose: 5 mg Pantoprazole Sodium (Protonix) 40 mg PO 2100 [facility] Last Admin: 12/24/17 20:53 Dose: 40 mg Polyethylene Glycol (Miralax) 17 gm PO DAILY PRN PRN Reason: Constipation Potassium Chloride (K-Dur) 20 meq PO TID-WM [facility] Last Admin: 12/24/17 17:20 Dose: 20 meq Prednisone (Prednisone) 10 mg PO DAILY [facility] Last Admin: 12/24/17 08:54 Dose: 10 mg Senna (Senokot) 2 tab PO HSPRN PRN PRN Reason: Constipation Last Admin: 12/23/17 08:31 Dose: 2 tab Senna/Docusate Sodium (Senokot S) 1 tab PO BID [facility] Last Admin: 12/24/17 20:53 Dose: 1 tab Sodium Chloride (Flush - Normal Saline) 10 ml IVF PRN PRN PRN Reason: Saline Flush Torsemide (Demadex) 20 mg PO BID@0900,1400 [facility] Last Admin: 12/24/17 15:35 Dose: 20 mg Tramadol HCl (Ultram) 50 mg PO Q4H PRN PRN Reason: Moderate Pain (4-6) Last Admin: 12/24/17 15:35 Dose: 50 mg
[2017-12-25] MEDS: traMADol HCl 50 MG TAB PO PRN ×2 (01:32→09:41)
[2017-12-25] MEDS: Ondansetron ODT 4 MG TAB PO PRN (01:32)
[2017-12-25] MEDS: oxyCODONE 5 MG TAB PO PRN ×2 (04:50→13:21)
[2017-12-25] MEDS: Levothyroxine 150 MCG TAB PO SCH (04:52)
[2017-12-25] MEDS: Gabapentin 300 MG CAP PO SCH (09:01)
[2017-12-25] MEDS: Insulin Detemir 100 UNITS/ML 15 UNITS in Pre-Filled Syringe 1 EACH SC SCH (09:01)
[2017-12-25] MEDS: Amiodarone 200 MG TAB PO SCH (09:02)
[2017-12-25] MEDS: Senokot S 8.6-50 MG TAB PO SCH (09:02)
[2017-12-25] MEDS: Potassium Chloride 20 MEQ TAB PO SCH ×2 (09:02→11:59)
[2017-12-25] MEDS: Aspirin 81 mg Enteric Coated Tablet PO SCH (09:02)
[2017-12-25] MEDS: Atorvastatin Calcium 10 MG TAB PO SCH (09:02)
[2017-12-25] MEDS: Torsemide 20 MG TAB PO SCH ×2 (09:02→13:21)
[2017-12-25] MEDS: Docusate 100 MG CAP PO SCH (09:02)
[2017-12-25] MEDS: predniSONE 20 MG TAB PO SCH (09:03)
[2017-12-25] MEDS: Carvedilol 3.125 MG TAB PO SCH (09:03)
[2017-12-25] MEDS: Acetaminophen 325 MG TAB PO PRN (09:41)
[2017-12-25] MEDS: Insulin Regular 300 UNITS/3 ML VIAL SC PRN (11:59)
[2017-12-25 12:29] VITALS: BP 151/63; TEMP 96.3
--- NOTE | 2017-12-25 13:26 | DIS ---
DISCHARGE DIAGNOSES: 1. Chest discomfort with nausea and intermittent vomiting, suspected possibly related to gastroesophageal reflux disease. 2. Elevated troponin secondary to demand ischemia. 3. Compensated chronic diastolic heart failure. 4. Hyponatremia and hypokalemia secondary to diuretics, resolved. BRIEF SUMMARY OF HOSPITAL COURSE: This is an 82-year-old female with known history of type 2 diabetes, coronary artery disease, diastolic heart failure and chronic renal disease who initially presented with a chief complaint of chest discomfort accompanied by nausea and intermittent vomiting. Please see the original history and physical for full details surrounding admission. Patient was also noted to have elevated troponin at the time of admission and was seen by Cardiology in consultation. It is felt this was secondary to component of demand ischemia and the patient has been started, continued and will be discharged on medical regimen for her coronary artery disease. Patient' s chronic diastolic heart failure appeared to be compensated during this hospitalization. She did also present with a component of hyponatremia and hypokalemia which is currently resolved and felt to be attributed to her diuretic use. At the time of discharge, the patient is asked for close outpatient followup as she may need either electrolyte replacement therapy or further diuretic titration on an ongoing basis. Patient's type 2 diabetes and chronic pain syndrome are also stable. Patient underwent a repeat EGD which demonstrated gastric polyps. She has been started on proton pump inhibitor to help with her symptoms. Remainder of her chronic medical issues are stable at the time of discharge. The patient did have mild acute kidney injury on her known chronic renal disease, and at the time of discharge, her renal function is close to her baseline. CONSULTATION: Cardiology. MEDICATION RECONCILIATION: Please see the EMR for full details. Patient to continue her home regimen. No additional narcotic medications were given during this hospitalization at the time of discharge. Patient started on Protonix 40 mg p.o. daily along with carvedilol 3.125 mg p.o. b.i.d. Patient is also given a prescription for amiodarone 200 mg p.o. daily p.r.n., tramadol 50 mg p.o. q.6 hours p.r.n. PATIENT'S CONDITION AT DISCHARGE: At the time of discharge, patient is tolerating her baseline cardiac diet. She is seen and examined on the day of discharge. DISCHARGE INSTRUCTIONS: The patient is asked to follow up closely with her outpatient team to include her primary care provider, information clerk cashier as well as follow up routine laboratory values when she follows up with them. Thank you for asking me to care for your patient. Greater than 30 minutes were spent coordinating discharge for your patient. PATTI
--- NOTE | 2017-12-26 08:00 | DIS ---
DATE OF ADMISSION: 12/22/2017 DATE OF DISCHARGE: 12/25/2017 DISCHARGE DISPOSITION: Home. FOLLOWUP: 1. Follow up with primary care physician, Dr. Dillon in 1 week. 2. Follow up with Dr. Lynch. 3. [facility] care will be resumed. DISCHARGE MEDICATIONS: 1. Carvedilol 3.125 mg has been restarted. 2. Omeprazole has been changed to Protonix. All other home medications were left unchanged. BRIEF HOSPITAL COURSE: Patient is an 82-year-old female with coronary artery disease, hypertension, diabetes mellitus type 2, and chronic diastolic heart failure, who presented to the hospital with ed[address] st discomfort along with nausea and vomiting. Please refer to the history and physical dated for further details. The patient was admitted to the telemetry unit with a diagnosis of chest discomfort, rule out acute c oronary syndrome. The patient was evaluated by Cardiology, Dr. Lynch. She showed good improvement with Protonix. All other home medications were resumed. Dr. Lynch restarted on low dose carvedilol . Nausea and vomiting has resolved. She was able to tolerate oral diet. Home health care will be r esumed. She recently underwent an EGD. FINAL DIAGNOSES: 1. Chest discomfort with nausea, vomiting. Her troponins remained in the indeterminate range with m aximum troponin of 0.044. 2. Coronary artery disease. 3. Aortic stenosis. 4. Chronic diastolic heart failure, compensated. 5. Chronic pain syndrome on chronic narcotics. 6. Mild acute kidney injury on chronic kidney disease. A repeat creatinine after 1 week is recommen ded. 8. Hyponatremia. 9. Hypokalemia. 10. Recent esophagogastroduodenoscopy. 11. Elevated troponins, probably secondary to demand ischemia. Plan of care was discussed with the patient in detail. She stated understanding.
== END 2017-12-25 14:13 | disposition home health service (06) ==
LOC: ERS 13:25 → 2NO 16:16
PROVIDERS: ADMIT Internal Medicine; ATTEND Internal Medicine
DX: R07.89 Other chest pain (principal); R11.2 Nausea with vomiting, unspecified; R79.89 Other specified abnormal findings of blood chemistry; E87.1 Hypo-osmolality and hyponatremia; E87.6 Hypokalemia; I25.10 Atherosclerotic heart disease of native coronary artery without angina pectoris; I13.0 Hypertensive heart and chronic kidney disease with heart failure and stage 1 through stage 4 chronic kidney disease, or unspecified chronic kidney disease; E11.22 Type 2 diabetes mellitus with diabetic chronic kidney disease; N18.3 Chronic kidney disease, stage 3 (moderate); I50.32 Chronic diastolic (congestive) heart failure; N17.9 Acute kidney failure, unspecified; I35.0 Nonrheumatic aortic (valve) stenosis; G89.4 Chronic pain syndrome; F41.9 Anxiety disorder, unspecified; Z88.5 Allergy status to narcotic agent; Z79.899 Other long term (current) drug therapy; Z95.5 Presence of coronary angioplasty implant and graft; Z98.890 Other specified postprocedural states
CPT/HCPCS: 51701; 70450; 71045; 74019; 80048; 80053; 80069; 81003; 82553; 82962 ×4; 83735; 83880; 84484 ×2; 85025; 93005; 96374; 96375; 97116; 97139 ×5; 97530; 99285; G0378 ×2; G8978; G8979; G8987; G8988; G8989; 36415; 36416; 96361; A4353; J1815; J2270; J2405; J7506; Q0162

== ENCOUNTER 2017-12-30 18:25 | Observation (INO) | payer MEDICARE, BC ==
[2017-12-30] MEDS ORDERED: Morphine 4 MG/ML VIAL ONE ×2 (19:09→20:36)
[2017-12-30] MEDS ORDERED: Promethazine HCl 25 MG/ML VIAL ONE (19:10)
[2017-12-30 19:32] LABS: #Lymphocytes 1.7 thou/uL (1.20-3.40); #Monocytes 0.8 thou/uL (0.11-0.59); #Neutrophils 9.6 thou/uL (1.40-6.50); %Basophils 0.1 % (0.0-1.0); %Eosinophils 0.1 % (0.0-10.0); %Lymphocytes 14.3 % (21.0-51.0); %Monocytes 6.6 % (0.0-10.0); %Neutrophils 78.9 % (42.0-75.0); Hemoglobin 13.7 g/dL (12.0-16.0); Mean Corpuscular HGB CONC 32.9 g/dL (32.0-36.0); Mean Corpuscular Hemoglobin 29.9 pg (27.0-31.0); Mean Corpuscular Volume 91.1 fl (81.0-99.0); Mean Platelet Volume 7.3 fL (7.4-10.4); Platelet Count 275 thou/uL (130-400); RBC Distribution Width 14.9 % (11.5-14.5); Red Blood Cell (RBC) Count 4.59 mill/uL (4.20-5.40); White Blood Cell (WBC) Count 12.2 thou/uL (4.8-10.8)
[2017-12-30] MEDS ORDERED: Lidocaine 4% Cream 5 GM TUBE w/ Tegaderm ONE (19:34)
[2017-12-30 19:54] LABS: ALT (SGPT) 13 U/L (8-55); AST (SGOT) 17 U/L (5-34); Albumin 3.7 g/dL (3.4-4.8); Alkaline Phosphatase 112 U/L (40-150); Anion Gap 15 mmol/L (10-20); BUN (Urea Nitrogen) 64 mg/dL (9.8-20.1); Bilirubin, Total 0.5 mg/dL (0.2-1.2); Calc. Creatinine Clearance 0 mL/min (70-130); Calcium 9.1 mg/dL (7.8-10.44); Carbon Dioxide 34 mmol/L (23-31); Chloride 90 mmol/L (98-107); Estimated GFR-MDRD 32; Globulin 2.8 g/dL (2.4-3.5); Glucose 176 mg/dL (83-110); Lipase 16 U/L (8-78); Potassium 3.6 mmol/L (3.5-5.1); Protein, Total 6.5 g/dL (6.0-8.3); Sodium 135 mmol/L (136-145)
[2017-12-30 20:22] LABS: Bilirubin Negative (Negative); Blood, Urine Negative (Negative); Clarity CLEAR (Clear); Glucose, Urine (Dipstick) Negative (Negative); Leukocyte Negative (Negative); Nitrite Negative (Negative); Protein, Urine (Dipstick) Negative (Neg-Trace); Specific Gravity, Urine 1.009 (1.002-1.036); Urobilinogen 0.2 mg/dL (0.2-1.0); pH, Urine 7.5 (5.0-9.0)
--- NOTE | 2017-12-30 20:42 | CT ---
CT OF ABDOMEN AND PELVIS PERFORMED WITHOUT CONTRAST ENHANCEMENT: 12/30/17 HISTORY: Abdominal pain, constipation and inability to urinate. Vomiting. Multiple surgeries. COMPARISON: 12/05/17 study. The lung bases are clear of any infiltrative process. Coronary calcifications are noted. The liver and spleen are normal in appearance. The pancreas is atrophic and the gallbladder has been removed. Right and left adrenal glands and right and left kidneys are normal in size. No renal calculi are se en. there is slight dilatation of the right renal pelvis and proximal right ureter but there is no ob structing calculus. There is no significant periaortic or mesenteric adenopathy. Mild amount of fluid within the right and left colon. CT OF PELVIS PERFORMED WITH CONTRAST ENHANCEMENT: There is a moderate amount of stool present in the rectosigmoid region suggesting impaction. There is some mild wall thickening to the rectosigmoid region associated with this. Minimal pericolonic fat s tranding is seen. No free fluid. The appendix is not definitely identified but I see no inflammatory process. IMPRESSION: 1. Findings compatible with fecal impaction. 2. Postop cholecystectomy change. POS: [facility]
[2017-12-30] MEDS ORDERED: Bacitracin Zinc 1 Packet ONE (21:03)
[2017-12-30] MEDS ORDERED: Fleet Enema 133 ML BOT PR SCH (21:30)
[2017-12-31] MEDS ORDERED: Acetaminophen 325 MG TAB PO PRN ×2 (02:02→08:21)
[2017-12-31] MEDS ORDERED: Ondansetron HCl/PF 4 MG/2 ML Vial IVP PRN (02:02)
[2017-12-31] MEDS ORDERED: Ondansetron ODT 4 MG TAB SL PRN (02:02)
[2017-12-31 02:49] VITALS: BMI 29.0
[2017-12-31] MEDS ORDERED: Bisacodyl 5 MG TAB PO PRN (08:21)
[2017-12-31] MEDS ORDERED: traMADol HCl 50 MG TAB PO PRN ×3 (08:21→09:43)
[2017-12-31] MEDS ORDERED: Ondansetron ODT 4 MG TAB PO PRN (08:21)
[2017-12-31] MEDS ORDERED: oxyCODONE 5 MG TAB PO SCH (08:30)
[2017-12-31] MEDS ORDERED: predniSONE 5 MG TAB PO SCH (09:00)
[2017-12-31] MEDS ORDERED: Aspirin 81 mg Enteric Coated Tablet PO SCH (09:00)
[2017-12-31] MEDS ORDERED: Amiodarone 200 MG TAB PO SCH (09:00)
[2017-12-31] MEDS ORDERED: HUMALOG MIX SC SCH (09:00)
[2017-12-31] MEDS ORDERED: Metolazone 5 MG TAB PO SCH (09:00)
[2017-12-31] MEDS: Gabapentin 300 MG CAP PO SCH ×2 (09:46→14:51)
[2017-12-31] MEDS: Torsemide 20 MG TAB PO SCH ×2 (10:13→14:51)
[2017-12-31] MEDS ORDERED: Insulin NPH/Reg Insulin Hm 300 UNITS/3 ML VIAL SC SCH (10:30)
[2017-12-31 11:37] VITALS: BP 119/58; TEMP 98.2
[2017-12-31] MEDS ORDERED: Lubiprostone 24 MCG CAP PO SCH (17:00)
--- NOTE | 2017-12-31 18:10 | HP ---
DATE OF ADMISSION: Patient was placed in observation by the emergency department on 12/30/2017, she was seen by me in the morning of 12/31/2017 and discharged shortly thereafter. PRIMARY CARE PHYSICIAN: Listed as a Dr. Robi Dillon. PRIMARY DOCUMENT CONTROL ASSISTANT: Hector Andres MD CONSULTATIONS: None. PROCEDURES: None. CHIEF COMPLAINT: Constipation and abdominal pain. HISTORY OF PRESENT ILLNESS: Ms. Ivory is an 82-year-old female with history of constipation and chr onic pain who has had decreased bowel movements, constipation for about 5 days. On the day of admiss ion, she was unable to urinate and decided to come to the emergency department for further evaluation . Here she noted that she had tried suppositories at home without success and had increase in her chron ic lower extremity edema. Labs were otherwise unremarkable. We were subsequently called for admissi on. DISCHARGE DIAGNOSES: 1. Obstipation. 2. Abdominal pain. 3. Chronic kidney disease, stage 3. 4. Chronic venous stasis. 5. Diabetes mellitus type 2 without mention of complication. 6. Chronic back pain and chronic pain syndrome. 7. Gout, inactive. 8. Hypothyroidism. 9. Hypertension, essential. 10. Hyperlipidemia. 11. Paroxysmal atrial fibrillation. PAST MEDICAL HISTORY: 1. Chronic kidney disease 3. 2. Venous stasis. 3. Diabetes mellitus type 2. 4. Chronic back pain. 5. Gout. 6. Hypothyroidism. 7. Hypertension, essential. 8. Hyperlipidemia. 9. Paroxysmal atrial fibrillation. PAST SURGICAL HISTORY: 1. Cholecystectomy. 2. Left third toe amputation on 05/2017. 3. Appendectomy, remotely. 4. Hysterectomy, remotely. 5. Left TKA, years ago. 6. Bilateral cataracts. HOME MEDICATIONS: 1. Torsemide 20 mg p.o. b.i.d. 2. Metolazone 5 mg p.o. three time weekly. 3. Amiodarone 200 mg p.o. daily. 4. Aspirin 81 mg daily. 5. Levothyroxine 150 mcg daily. 6. Omeprazole 40 mg daily. 7. Prednisone 10 mg daily. 8. Zofran ODT 4 mg p.o. p.r.n. nausea. 9. Humalog 75/25, 45 units subq q.a.m. and sliding scale to determine her afternoon dose. 10. Amitiza 24 mcg p.o. b.i.d. 11. Gabapentin 500 mg p.o. t.i.d. 12. Potassium chloride 20 mEq p.o. daily. 13. Ativan 0.5 mg p.o. at bedtime. 14. Dulcolax suppositories as needed. ALLERGIES: HYDROCODONE. FAMILY HISTORY: Negative for clotting or bleeding disorder. No immune dysfunction. SOCIAL HISTORY: Negative for habits x3. REVIEW OF SYSTEMS: All systems were reviewed and negative except as stated as above. PHYSICAL EXAMINATION: VITAL SIGNS: Temperature 97.5, pulse 62, blood pressure 130/64, respiratory rate 16, satting 100% on room air. GENERAL: She is awake. She is alert, she is oriented x3. She is an obese, elderly white female who is slightly cantankerous and appears to be in no acute distress. HEENT: Normocephalic, atraumatic. Pupils equal, round, react to light bilaterally, bilateral pseudo phakia present. Mucous membranes are moist. She has no visible lesions or thrush. NECK: Supple, without lymphadenopathy, JVD, or thyromegaly. LUNGS: Clear. She has good air movement and symmetrical chest excursion. She does have some bowel sounds heard in the lower chest area. She has no prolonged expiratory phase. CARDIOVASCULAR: She has normal S1, S2. She has a 2-3/6 systolic ejection murmur at the right sterna l border. She has no audible rubs. ABDOMEN: Obese and distended. She is slightly tympanitic. She has no rebound, rigidity or guarding . She has good bowel sounds present in all 4 quadrants. EXTREMITIES: Show no signs of clubbing. She has chronic lower extremity edema that is apparent. SKIN: Her skin is thin and brittle. She has no rash or lesions noted. MUSCULOSKELETAL: Normal to inspection. Large joints appear normal. There is no evidence of inflamm ation. No palpable effusions. NEUROLOGIC: Cranial nerves II-XII are grossly intact without any focal neurologic deficits. She has normal speech pattern. She has 4/5 strength in all 4 extremities. LABORATORY DATA: Sodium 135, potassium 3.6, chloride 90, bicarbonate 34, BUN 64, creatinine 1.57, ca lcium 9.1 and normal glucose. Liver function is completely within normal limits. Lipase 16. Urinalysis was clear. CBC showed a w asa count of 12.2, hemoglobin 13.7, hematocrit of 41.8, platelet count is 275,000 with normal differ ential. CT scan of the abdomen and pelvis showed fecal impaction and post-cholecystectomy changes. HOSPITAL COURSE: The patient was accepted by the housekeeping and laundry team leader and transferred to the floor. The patie nt was seen and examined by me first thing in the morning. She had been given a Fleet Enema and had four bowel movements since being transferred to the floor. She is to have a Lea catheter, but I re quest that be removed and the patient was able to void later that morning. She tolerated regular medicines. We will continue on her home medications. Follow up labs were obta ined, particularly glucose that showed her glucose to be elevated, but certainly not low any longer. She was otherwise stable for discharge with outpatient followup. PHYSICAL EXAMINATION: The patient was seen and examined on the day of discharge as above. Discharge plan and disposition were discussed with the patient face to face at the bedside. DISCHARGE MEDICATIONS: I will continue her home medications. No new medications were added. DISCHARGE ACTIVITY: As tolerated. DISCHARGE DIET: Heart healthy recommended. I recommended MiraLax, but she adamantly refused and jus t wanted to be on her Amitiza. DISCHARGE FOLLOWUP: 1. Primary care physician, Dr. Dillon within a week. 2. Dr. Lynch, her polygraph examiner as schedule. 3. Dr. Andres on 01/03/2018 as scheduled.
[2017-12-31] MEDS ORDERED: Atorvastatin Calcium 10 MG TAB PO SCH (21:00)
[2017-12-31] MEDS ORDERED: Lorazepam 0.5 MG TAB PO SCH (21:00)
[2018-01-01] MEDS ORDERED: Levothyroxine Sodium 50 MCG TAB PO SCH (06:00)
[2018-01-01] MEDS ORDERED: Insulin NPH/Reg Insulin Hm 300 UNITS/3 ML VIAL SC SCH (09:00)
== END 2017-12-31 15:05 | disposition home health service (06) ==
LOC: ERS 18:25 → T4-B 23:47
PROVIDERS: ADMIT Internal Medicine; ATTEND Internal Medicine
DX: K59.00 Constipation, unspecified (principal); G89.4 Chronic pain syndrome; M10.9 Gout, unspecified; E03.9 Hypothyroidism, unspecified; E78.5 Hyperlipidemia, unspecified; I48.0 Paroxysmal atrial fibrillation; I12.9 Hypertensive chronic kidney disease with stage 1 through stage 4 chronic kidney disease, or unspecified chronic kidney disease; E11.22 Type 2 diabetes mellitus with diabetic chronic kidney disease; N18.3 Chronic kidney disease, stage 3 (moderate); I87.8 Other specified disorders of veins; Z79.82 Long term (current) use of aspirin; Z79.52 Long term (current) use of systemic steroids; Z79.4 Long term (current) use of insulin; Z79.899 Other long term (current) drug therapy; Z88.5 Allergy status to narcotic agent
CPT/HCPCS: 51702; 74176; 80053; 81003; 82962; 83690; 85025; 87086; 96361; 96374; 96375; 96376; 97139; 99285; G0378; 36415; 36416; J2270; J2550

== ENCOUNTER 2018-01-06 07:15 | Observation (INO) | payer MEDICARE, BC ==
[2018-01-06 07:51] LABS: #Basophils 0.1 thou/uL (0.0-0.2); #Eosinphils 0.1 thou/uL (0.0-0.7); #Lymphocytes 1.2 thou/uL (1.20-3.40); #Neutrophils 8.7 thou/uL (1.40-6.50); %Basophils 0.5 % (0.0-1.0); %Eosinophils 0.5 % (0.0-10.0); %Lymphocytes 11.1 % (21.0-51.0); %Monocytes 9.4 % (0.0-10.0); %Neutrophils 78.6 % (42.0-75.0); Hemoglobin 14.9 g/dL (12.0-16.0); Mean Corpuscular HGB CONC 32.5 g/dL (32.0-36.0); Mean Corpuscular Hemoglobin 29.8 pg (27.0-31.0); Mean Corpuscular Volume 91.6 fl (81.0-99.0); Mean Platelet Volume 6.9 fL (7.4-10.4); Platelet Count 250 thou/uL (130-400); RBC Distribution Width 14.7 % (11.5-14.5); Red Blood Cell (RBC) Count 5.02 mill/uL (4.20-5.40)
[2018-01-06 08:11] LABS: ALT (SGPT) 14 U/L (8-55); AST (SGOT) 19 U/L (5-34); Albumin 3.9 g/dL (3.4-4.8); Alkaline Phosphatase 115 U/L (40-150); Anion Gap 16 mmol/L (10-20); BUN (Urea Nitrogen) 52 mg/dL (9.8-20.1); Bilirubin, Total 0.5 mg/dL (0.2-1.2); Calc. Creatinine Clearance 0 mL/min (70-130); Calcium 9.3 mg/dL (7.8-10.44); Carbon Dioxide 31 mmol/L (23-31); Chloride 95 mmol/L (98-107); Estimated GFR-MDRD 27; Globulin 2.6 g/dL (2.4-3.5); Glucose 161 mg/dL (83-110); Protein, Total 6.5 g/dL (6.0-8.3); Sodium 139 mmol/L (136-145)
[2018-01-06 08:13] LABS: Potassium 2.7 mmol/L (3.5-5.1)
[2018-01-06 08:15] LABS: CKMB 3.5 ng/mL (0-6.6); Troponin I 0.029 ng/mL (< 0.028)
[2018-01-06 08:27] LABS: Bilirubin Negative (Negative); Blood, Urine Small (Negative); Clarity CLEAR (Clear); Glucose, Urine (Dipstick) Negative (Negative); Leukocyte Small (Negative); Nitrite Negative (Negative); Protein, Urine (Dipstick) Trace mg/dL (Neg-Trace); Specific Gravity, Urine 1.009 (1.002-1.036); Urobilinogen 0.2 mg/dL (0.2-1.0); pH, Urine 6.5 (5.0-9.0)
[2018-01-06 08:30] LABS: Bacteria/HPF 1+ HPF (None Seen); Hyaline Casts/LPF 0-3 HYALINE CAST LPF (0-3 Hyaline); RBC/HPF None Seen HPF (0-3); Squamous Epithelial 0-3 HPF (0-3)
--- NOTE | 2018-01-06 08:55 | RAD ---
PORTABLE CHEST 1 VIEW: DATE: 01/06/18. TIME: 8:12 a.m. HISTORY: Altered mental status. FINDINGS: The heart is enlarged. The aorta is tortuous. No lobar consolidation, pneumothoraces, georgiana pulmona ry edema, or pleural effusions are seen. There is evidence of old granulomatous disease. IMPRESSION: No acute process. POS: OFF
[2018-01-06] MEDS ORDERED: Potassium Chloride 20 MEQ in Premix Bag 1 BAG IVPB SCH (09:00)
[2018-01-06] MEDS ORDERED: Potassium Chloride 20 MEQ/100 ML PREMIX BAG ONE (10:26)
[2018-01-06] MEDS ORDERED: traMADol HCl 50 MG TAB ONE (10:46)
[2018-01-06] MEDS ORDERED: Acetaminophen 500 MG TAB ONE (10:46)
[2018-01-06 11:29] LABS: Troponin I 0.046 ng/mL (< 0.028)
[2018-01-06] MEDS ORDERED: Ondansetron HCl/PF 4 MG/2 ML Vial IVP PRN (12:10)
[2018-01-06] MEDS ORDERED: Ondansetron ODT 4 MG TAB PO PRN ×2 (12:10→22:30)
[2018-01-06] MEDS ORDERED: Acetaminophen 325 MG TAB PO PRN (12:11)
[2018-01-06] MEDS ORDERED: Dextrose 50% Abboject 50 ML SYRINGE SLOW IVP PRN (12:47)
[2018-01-06] MEDS ORDERED: Zolpidem Tartrate 5 MG TAB PO PRN (12:47)
[2018-01-06] MEDS ORDERED: Dextrose 5% in Water 1,000 ML IV PRN (12:47)
[2018-01-06 13:31] VITALS: BMI 28.3
--- NOTE | 2018-01-06 13:35 | HP ---
PRIMARY CARE PROVIDER: Dr. Robi Dillon. HISTORY OF PRESENT ILLNESS: The patient was brought to the emergency room by EMS after being called. She apparently got up, had a fall, her caregiver called EMS. She was noted to have a blood sugar o f 40. She was brought to the emergency room. She was treated aggressively. When I was called, her blood sugar had come up to 140. She also was noted to have a low potassium. She states she has been nauseated and has not eaten for 3 days. No bowel movement for 3 days. She has seen a gastroenterol ogist, Dr. Andres 3 days ago who had removed some of her medications. It is pertinent that she had a CT scan of her abdomen done on 12/30/2017, which showed only a fecal impaction. 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 PAST SURGICAL HISTORY: Cholecystectomy, left third toe amputation, appendectomy, remote hysterectomy , remote bilateral cataract surgery. CURRENT MEDICATIONS: Ativan 0.5 at bedtime, potassium chloride 20 mEq a day, gabapentin 500 mg 3 bethany es a day, Amitiza 24 mcg p.o. b.i.d., Humalog 75/25, 45 units in the morning; Zofran oral dissolving tablet 4 mg p.r.n. for nausea, prednisone 10 mg a day, omeprazole 40 mg a day, levothyroxine 150 mg a day, aspirin 81 mg a day, amiodarone 200 mg a day, metolazone 5 mg 3 times weekly, and torsemide 20 mg p.o. b.i.d. ALLERGIES: HYDROCODONE. SOCIAL HISTORY: Lives alone. Has a sitter. FULL CODE status. She does not give a next of kin. No tobacco, alcohol, or illicit drugs. FAMILY HISTORY: Denies diabetes, heart disease or other inheritable diseases. REVIEW OF SYSTEMS: GENERAL: Occasional dizzy spells, no fainting, no headaches. EYES: No double vision, blurred vision, flashing lights. EAR, NOSE, AND THROAT: No ear pain or drainage. No nasal bleeding. No trouble swallowing. CARDIAC: No chest pain, orthopnea or paroxysmal nocturnal dyspnea. RESPIRATORY: Occasional shortness of breath with exertion. No history of asthma or cough. GASTROINTESTINAL: See present illness, abdominal pain, occasional nausea and vomiting, difficulty wi th BMs, chronic obstipation. GENITOURINARY: No hematuria or dysuria. MUSCULOSKELETAL: She swells in her legs chronically. No pain in muscles. NEUROLOGIC: No strokes, seizures or focal weakness. PSYCHIATRIC: No anxiety, depression. SKIN: No easy bruising, no rashes. HEME/LYMPH: No tender or swollen lymph nodes in axilla, inguinal or cervical area. PHYSICAL EXAMINATION: GENERAL: She is an alert, pleasant lady, looking older than stated age. VITAL SIGNS: Blood pressure 178/99, temperature 97.6, pulse 69, respirations 18, and O2 saturation 9 8. HEAD, EYES, EARS, NOSE, AND THROAT: Reveal pupils equal, round with implants. Extraocular movements are intact. Sclerae white. Tympanic membranes are clear. Nose is clear. Oral mucous membranes ar e wet. She is essentially edentulous, has dentures, but not with her. NECK: No jugular venous distention, adenopathy, or thyromegaly. CHEST: Clear to auscultation and percussion. HEART: Regular rate and rhythm. First and second heart sounds are clear. There are no appreciated murmurs or gallops. ABDOMEN: Soft, bowel sounds are normal. There is no hepatosplenomegaly, no mass, no rebound. EXTREMITIES: Reveal 1+ edema with no cyanosis or clubbing. PULSES: Carotid, radial, femoral pulses intact. Pedal pulses diminished, symmetric. SKIN: Warm and dry with ecchymoses on her arms. HEME/LYMPHATIC: No tender or swollen lymph nodes in axilla, inguinal or cervical area. NEUROLOGICAL: Cranial nerves II through XII are intact. Deep tendon reflexes symmetric. Moves all extremities. X-RAY FINDINGS: Chest x-ray, poor inspiration. No cardiomegaly, no CHF or infiltrate, reviewed by jazmin bell. EKG: Regular sinus rhythm, LVH, first-degree AV block, reviewed by me. LABORATORY DATA: Creatinine 1.78, BUN 52, potassium 2.7, sodium 139. Blood sugar 311, currently. B [employer] 117. Troponin 0.03, 0.04, 6. White count 11.0, hemoglobin 14.9, and platelet count 250. ADMITTING DIAGNOSES: 1. Hypoglycemia, resolved. 2. Diabetes mellitus type 2, insulin dependent. 3. Hypokalemia. 4. Chronic kidney disease, stage 3. 5. Chronic pain syndrome. 6. Gastrointestinal complaints. PLAN: Monitor blood sugars, feed, potassium 40 mg twice a day today. Repeat basic metabolic profile in the morning, reevaluate blood sugars in the morning, probably discharge on lower dose of insulin. Selected home medicines. Two pertinent notes: 1. EGD done 12/09/2017, was normal except for an incidental small polyp, which was removed. Biopsy showed polypoid reactive gastropathy. 2. She asked for OxyContin saying that given it to her in the hospital. It was the only thing that helped with her pain. She is on Ultram at home. I told her she would not be getting that medicine i n the hospital because it was a probably part of the problem with her constipation and nausea for bailey n medications. Hopefully, I can get her potassium up over 3 tonight, blood sugars in a rational rang e tomorrow and discharge her tomorrow.
[2018-01-06] MEDS ORDERED: Enoxaparin Sodium 30 MG/0.3 ML SYRINGE SC SCH (14:00)
[2018-01-06] MEDS: traMADol HCl 50 MG TAB PO PRN ×2 (14:49→23:30)
[2018-01-06] MEDS: Acetaminophen 325 MG TAB PO PRN (18:49)
[2018-01-06] MEDS: Potassium Chloride 20 MEQ TAB PO SCH (20:13)
[2018-01-06] MEDS ORDERED: Polyethylene Glycol 3350 17 GM Packet PO PRN (22:30)
[2018-01-06] MEDS ORDERED: Lorazepam 0.5 MG TAB PO SCH (22:45)
[2018-01-06] MEDS ORDERED: Isosorbide Mononitrate 20 MG TAB PO SCH (22:45)
[2018-01-06] MEDS ORDERED: Gabapentin 300 MG CAP PO SCH (22:45)
[2018-01-06] MEDS ORDERED: Carvedilol 6.25 MG TAB PO SCH (22:45)
[2018-01-06] MEDS ORDERED: Atorvastatin Calcium 10 MG TAB PO SCH (22:45)
[2018-01-07] MEDS: Acetaminophen 325 MG TAB PO PRN (02:58)
[2018-01-07 05:32] LABS: #Basophils 0.1 thou/uL (0.0-0.2); #Eosinphils 0.1 thou/uL (0.0-0.7); #Lymphocytes 2.3 thou/uL (1.20-3.40); #Monocytes 1.2 thou/uL (0.11-0.59); #Neutrophils 9.1 thou/uL (1.40-6.50); %Basophils 0.5 % (0.0-1.0); %Eosinophils 0.7 % (0.0-10.0); %Lymphocytes 17.7 % (21.0-51.0); %Monocytes 9.6 % (0.0-10.0); %Neutrophils 71.5 % (42.0-75.0); Hemoglobin 13.6 g/dL (12.0-16.0); Mean Corpuscular HGB CONC 31.8 g/dL (32.0-36.0); Mean Corpuscular Hemoglobin 29.2 pg (27.0-31.0); Mean Corpuscular Volume 91.9 fl (81.0-99.0); Mean Platelet Volume 7.1 fL (7.4-10.4); Platelet Count 274 thou/uL (130-400); Red Blood Cell (RBC) Count 4.64 mill/uL (4.20-5.40); White Blood Cell (WBC) Count 12.7 thou/uL (4.8-10.8)
[2018-01-07 05:43] LABS: Anion Gap 15 mmol/L (10-20); BUN (Urea Nitrogen) 56 mg/dL (9.8-20.1); Calc. Creatinine Clearance 28 mL/min (70-130); Calcium 9.4 mg/dL (7.8-10.44); Carbon Dioxide 29 mmol/L (23-31); Chloride 97 mmol/L (98-107); Estimated GFR-MDRD 26; Glucose 141 mg/dL (83-110); Potassium 3.5 mmol/L (3.5-5.1); Sodium 137 mmol/L (136-145)
[2018-01-07] MEDS ORDERED: Levothyroxine 150 MCG TAB PO SCH (06:00)
[2018-01-07] MEDS: traMADol HCl 50 MG TAB PO PRN (06:22)
[2018-01-07 06:32] VITALS: TEMP 97.2
[2018-01-07] MEDS ORDERED: predniSONE 5 MG TAB PO SCH (08:00)
[2018-01-07] MEDS: Potassium Chloride 20 MEQ TAB PO SCH (08:05)
[2018-01-07 08:19] VITALS: BP 141/74
--- NOTE | 2018-01-07 08:29 | DIS ---
DATE OF ADMISSION: 01/06/2018 DATE OF DISCHARGE: 01/07/2018 PRIMARY CARE PROVIDER: Robi Dillon M.D. FINAL DIAGNOSES: Hypoglycemia, diabetes mellitus type 2 with chronic kidney disease 3, history of co ronary artery disease, hypertension, paroxysmal atrial fibrillation. DISCHARGE MEDICATIONS: MiraLax 17 g in water daily p.r.n., omeprazole 40 mg a day, Coreg 6.25 mg twi ce a day, Isordil 10 mg twice a day, tramadol 50-100 mg p.o. q.6 hours p.r.n. pain, prednisone 10 mg a day, Humalog 75/25, 45 units in the morning, potassium chloride 20 mEq a day, lorazepam 0.5 mg at b edtime, Amitiza 24 mcg p.o. b.i.d., gabapentin 600 mg t.i.d., levothyroxine 150 mcg daily, Lipitor 10 mg at bedtime, aspirin 81 mg a day, amiodarone 200 mg a day, Demadex 20 mg b.i.d., metolazone 5 mg p .o. on Wednesday, Wednesday, and Wednesday. ALLERGIES: To HYDROCODONE. PENDING AT TIME OF DISCHARGE: Nothing. CODE STATUS: FULL. Diabetic diet. HOSPITAL COURSE: Patient with episode of hypoglycemia at home, brought to the hospital by EMS. Bloo d sugar reportedly 40 as an outpatient, rapidly came up to the 150 range in the emergency room, patie nt was eating. She was referred for observation. Her white count was 11.0, hemoglobin 14.9, platele t count 250,000. Potassium was 2.7. This was replaced. Sodium 139, creatinine 1.78, BUN 52. Blood sugars were in 100-200 range over the past 18 hours. Her standard a.m. insulin dose has been introd uced. She is alert, oriented, sitting in a chair, eating breakfast, ready to go home. CONSULTATIONS: None. PROCEDURES: None. FOLLOWUP: With Dr. Dillon in 7 days.
[2018-01-07] MEDS ORDERED: Insulin NPH/Reg Insulin Hm 300 UNITS/3 ML VIAL SC SCH (09:00)
[2018-01-07] MEDS ORDERED: Aspirin 81 mg Enteric Coated Tablet PO SCH (09:00)
[2018-01-07] MEDS ORDERED: Amiodarone 200 MG TAB PO SCH (09:00)
[2018-01-07] MEDS ORDERED: Isosorbide Mononitrate 20 MG TAB PO SCH (09:00)
[2018-01-07] MEDS ORDERED: Gabapentin 300 MG CAP PO SCH (09:00)
[2018-01-07] MEDS ORDERED: Carvedilol 6.25 MG TAB PO SCH (09:00)
[2018-01-07] MEDS ORDERED: Atorvastatin Calcium 10 MG TAB PO SCH (21:00)
[2018-01-07] MEDS ORDERED: Lorazepam 0.5 MG TAB PO SCH (21:00)
== END 2018-01-07 09:44 | disposition home or self-care (01) ==
LOC: ERS 07:15 → 2SW 09:16
PROVIDERS: ADMIT Internal Medicine; ATTEND Internal Medicine
DX: E11.649 Type 2 diabetes mellitus with hypoglycemia without coma (principal); I12.9 Hypertensive chronic kidney disease with stage 1 through stage 4 chronic kidney disease, or unspecified chronic kidney disease; E11.22 Type 2 diabetes mellitus with diabetic chronic kidney disease; N18.3 Chronic kidney disease, stage 3 (moderate); G89.4 Chronic pain syndrome; E03.9 Hypothyroidism, unspecified; E78.5 Hyperlipidemia, unspecified; I48.0 Paroxysmal atrial fibrillation; I25.10 Atherosclerotic heart disease of native coronary artery without angina pectoris; Z88.5 Allergy status to narcotic agent; Z79.4 Long term (current) use of insulin; Z79.52 Long term (current) use of systemic steroids; Z79.82 Long term (current) use of aspirin; Z79.899 Other long term (current) drug therapy; W19.XXXA Unspecified fall, initial encounter
CPT/HCPCS: 51701; 71045; 80048; 80053; 82553; 82962 ×2; 83735; 83880; 84484 ×2; 85025 ×2; 87077; 87086; 87186; 93005; 96365; 96372; 99285; G0378; 36415; 36416; 81003; 81015; A4353; J1650; J3480

== ENCOUNTER 2018-02-04 10:22 | Inpatient (IN) | payer MEDICARE, BC ==
[2018-02-04 10:56] LABS: Hemoglobin 13.9 g/dL (12.0-16.0); Mean Corpuscular HGB CONC 32.3 g/dL (32.0-36.0); Mean Corpuscular Hemoglobin 29.8 pg (27.0-31.0); Mean Corpuscular Volume 92.4 fl (81.0-99.0); Mean Platelet Volume 6.5 fL (7.4-10.4); Platelet Count 249 thou/uL (130-400); Red Blood Cell (RBC) Count 4.66 mill/uL (4.20-5.40)
[2018-02-04] MEDS ORDERED: Sodium Chloride 0.9% 100 ML ONE (11:14)
[2018-02-04] MEDS ORDERED: Promethazine HCl 12.5 MG SUPP ONE (11:14)
[2018-02-04 11:18] LABS: ALT (SGPT) 14 U/L (8-55); AST (SGOT) 19 U/L (5-34); Albumin 3.8 g/dL (3.4-4.8); Alkaline Phosphatase 95 U/L (40-150); Anion Gap 17 mmol/L (10-20); BUN (Urea Nitrogen) 100 mg/dL (9.8-20.1); Bilirubin, Total 1.9 mg/dL (0.2-1.2); Calc. Creatinine Clearance 0 mL/min (70-130); Calcium 10.2 mg/dL (7.8-10.44); Carbon Dioxide 33 mmol/L (23-31); Chloride 88 mmol/L (98-107); Estimated GFR-MDRD 19; Globulin 3.3 g/dL (2.4-3.5); Glucose 148 mg/dL (83-110); Potassium 3.1 mmol/L (3.5-5.1); Protein, Total 7.1 g/dL (6.0-8.3); Sodium 135 mmol/L (136-145)
[2018-02-04 11:30] LABS: MDiff Complete? YES
[2018-02-04] MEDS ORDERED: Promethazine HCl 6.25 MG in Sodium Chloride 0.9% 50 ML IVPB SCH (11:30)
[2018-02-04 11:31] LABS: Band 19 % (5-11); Lymphocytes 6 % (21-51); Neutrophil 72 % (42-75); RBC Morphology Normal; Reactive Lymphocytes 3 % (0-10)
--- NOTE | 2018-02-04 11:40 | RAD ---
UPRIGHT PORTABLE CHEST 1 VIEW: Date: 02/04/18 HISTORY: 82-year-old female with history of diabetic leg infection, sore on buttocks, hypokalemia. COMPARISON: 01/06/18. FINDINGS: Mild cardiomegaly. Increased bronchovascular markings bilaterally. Evidence for some chronic change a nd possibly mild vascular congestion. Atherosclerosis of aorta. Old granulomatous disease. Multiple h ealed right rib fractures. Bony demineralization. IMPRESSION: Overall stable appearing chest with some mild increased bronchovascular markings bilaterally. Borderl ine cardiomegaly. No confluent pneumonia or overt edema. Stable loop recorder overlying the left ches t. POS: [facility]
[2018-02-04 11:42] LABS: Bilirubin Small (Negative); Blood, Urine Moderate (Negative); Clarity TURBID (Clear); Glucose, Urine (Dipstick) Negative (Negative); Leukocyte Small (Negative); Nitrite Negative (Negative); Protein, Urine (Dipstick) 30 mg/dL (Neg-Trace); Specific Gravity, Urine 1.025 (1.002-1.036)
[2018-02-04 11:44] LABS: Bacteria/HPF Rare-Few HPF (None Seen); Pathc Cast-AUWi Flag 1.16 (0-2.49)
[2018-02-04 11:49] LABS: Yeast-AUWi Flag 29.2 (0-25.0)
[2018-02-04] MEDS ORDERED: Acetaminophen 500 MG TAB ONE (11:50)
[2018-02-04] MEDS ORDERED: Potassium Chloride 20 MEQ TAB ONE (11:50)
[2018-02-04] MEDS ORDERED: Potassium Chloride 20 MEQ/100 ML PREMIX BAG ONE (11:56)
[2018-02-04] MEDS ORDERED: Potassium Bicarbonate/Cit Ac 25 MEQ TAB ONE (11:57)
[2018-02-04 12:05] LABS: Crystals/HPF 3+ AMORPH URATES HPF (Negative); Hyaline Casts/LPF 0-3 HYALINE CAST LPF (0-3 Hyaline); Other Casts/LPF None Seen LPF (0-3 Hyaline); Renal Epithelial 0-3 HPF (0-3); Transitional Epithelial 0-3 HPF (0-3)
[2018-02-04] MEDS ORDERED: Clindamycin/D5W 900 mg/50 ml Premix Bag ONE (12:26)
[2018-02-04] MEDS ORDERED: Piperacillin/Tazobactam 4.5 GM VIAL ONE (13:13)
[2018-02-04] MEDS ORDERED: Fentanyl 100 MCG/2 ML VIAL ONE (13:13)
[2018-02-04 15:00] LABS: Lactic Acid 1.1 mmol/L (0.5-2.2)
[2018-02-04] MEDS ORDERED: cloNIDine 0.1 MG TAB PO PRN (16:51)
[2018-02-04] MEDS ORDERED: Dextrose 50% Abboject 50 ML SYRINGE SLOW IVP PRN (16:51)
[2018-02-04] MEDS ORDERED: HumaLOG 300 UNITS/3 ML VIAL SC PRN ×2 (16:51)
[2018-02-04] MEDS ORDERED: traMADol HCl 50 MG TAB PO PRN (16:51)
[2018-02-04] MEDS ORDERED: Dextrose 5% in Water 1,000 ML IV PRN (16:51)
[2018-02-04] MEDS ORDERED: Polyethylene Glycol 3350 17 GM Packet PO PRN (16:51)
[2018-02-04] MEDS: cefTRIAXone\\ROCEPHIN 2 GM in Sodium Chloride 0.9% 100 ML IVPB SCH (17:49)
[2018-02-04] MEDS: Ondansetron ODT 4 MG TAB PO PRN (17:49)
[2018-02-04] MEDS: Sodium Chloride 0.9% 1,000 ML IV SCH (17:49)
[2018-02-04] MEDS: Lubiprostone 24 MCG CAP PO SCH (17:49)
[2018-02-04] MEDS: traMADol HCl 50 MG TAB PO PRN (17:57)
[2018-02-04] MEDS ORDERED: Acetaminophen/Codeine 30-300mg Tablet PO SCH (20:15)
[2018-02-04] MEDS: Atorvastatin Calcium 10 MG TAB PO SCH (20:35)
[2018-02-04] MEDS: Carvedilol 6.25 MG TAB PO SCH (20:35)
[2018-02-04] MEDS: Gabapentin 300 MG CAP PO SCH (20:35)
[2018-02-04] MEDS: Heparin 5,000 UNITS/ML VIAL SC SCH (20:36)
[2018-02-04] MEDS: Famotidine 20 MG TAB PO SCH (20:36)
--- NOTE | 2018-02-04 21:21 | HP ---
DATE OF ADMISSION: 02/04/2018 PRIMARY CARE PHYSICIAN: Robi Dillon M.D. CHIEF COMPLAINT: Lower extremity redness. HISTORY OF PRESENT ILLNESS: This is an 82-year-old female who presents to [facility] complaining of increasing redness and swelling of the right lower extremity after a pparent fall at home secondary to hypoglycemic episode. The patient states her blood sugar was in th e 40s when she fell, scraping her leg. The patient states her med alert bracelet broke during the fa ll and was unable to notify her granddaughter. The patient was eventually found her granddaughter af ter crawling across the floor, scraping her legs in the process. The patient noted increasing rednes s, swelling, and general body aches after the fall. The patient does state a longstanding history of stasis dermatitis and low grade redness to the lower extremities at baseline. The patient denied an y recent antibiotic exposure, increased shortness of breath, chest pain or unilateral weakness. The patient states she lives at home with her granddaughter and ambulates with use of a rolling walker. The patient also complains of left upper and lateral posterior chest discomfort with some radiation a round the rib into the lower portion of her breast. The patient states that the pain is intermittent with some relief using prescription pain medications. Patient does state she received community health s ervices for general care and monitoring. In the emergency room, the patient underwent general evalua tion showing erythematous and edematous right lower extremity consistent with cellulitis. The patien t received clindamycin, vancomycin and Zosyn as well as pain control with fentanyl. The patient also received Tylenol and Phenergan. PAST MEDICAL HISTORY: 1. Chronic venous stasis dermatitis. 2. History of fall after hypoglycemic episode. 3. Diabetes mellitus type 2. 4. Chronic back pain. 5. History of gout. 6. Morbid obesity. 7. Hypothyroidism. 8. Hypertension. 9. Hyperlipidemia. 10. Chronic kidney disease, stage 3. 11. Paroxysmal atrial fibrillation. PAST SURGICAL HISTORY: 1. Status post cholecystectomy. 2. Status post amputation of multiple toes on the left foot. 3. Status post appendectomy. 4. Status post hysterectomy. 5. Status post bilateral cataract removal. CURRENT MEDICATIONS: Based on previous admission. 1. Amiodarone 200 mg 1 tab p.o. daily. 2. Enteric coated aspirin 81 mg 1 tab p.o. daily. 3. Lipitor 10 mg p.o. at bedtime. 4. Coreg 6.25 mg p.o. b.i.d. 5. Vitamin D3 of 5000 units p.o. daily. 6. Gabapentin 600 mg p.o. t.i.d. 7. Insulin 75/25, 45 units subcutaneously q.a.m. 8. Isosorbide mononitrate 10 mg p.o. b.i.d. 9. Levothyroxine 150 mcg p.o. daily. 10. Ativan 0.5 mg p.o. at bedtime. 11. Amitiza 24 mcg p.o. b.i.d. 12. Metolazone 5 mg Wednesday, Wednesday, and Wednesday. 13. Nitrostat 0.4 mg sublingually every 5 minutes p.r.n. chest pain. 14. Omeprazole 40 mg 1 tab p.o. daily. 15. Zofran ODT 4 mg p.o. q.8 hours p.r.n. 16. Potassium chloride 20 mEq 1 tab p.o. daily. 17. Prednisone 10 mg 1 tab p.o. daily. 18. Demadex 20 mg p.o. b.i.d. 19. Tramadol 50 mg 1-2 tabs p.o. q.6 hours p.r.n. pain. ALLERGIES: HYDROCODONE. FAMILY HISTORY: No inheritable diseases per patient report. SOCIAL HISTORY: The patient lives with her granddaughter. Has home health services. No alcohol, to bacco or illicit drug use. History of falls with recent fall prior to this evaluation and admission. Ambulatory with use of a rolling walker. REVIEW OF SYSTEMS: The following complete review of systems was negative, unless otherwise mentioned in the HPI or below: Constitutional: Weight loss or gain, ability to conduct usual activities. Sk in: Rash, itching. Eyes: Double vision, pain. ENT/Mouth: Nose bleeding, neck stiffness, pain, te nderness. Cardiovascular: Palpitations, dyspnea on exertion, orthopnea. Respiratory: Shortness of breath, wheezing, cough, hemoptysis, fever or night sweats. Gastrointestinal: Poor appetite, abdom inal pain, heartburn, nausea, vomiting, constipation, or diarrhea. Genitourinary: Urgency, frequenc y, dysuria, nocturia. Musculoskeletal: Pain, swelling. Neurologic/Psychiatric: Anxiety, depressio n. Allergy/Immunologic: Skin rash, bleeding tendency. PHYSICAL EXAMINATION: VITAL SIGNS: Currently, blood pressure 124/68, pulse 55, respiratory rate 18, temperature 97.6 degre es Fahrenheit, O2 saturation 94% on room air. GENERAL APPEARANCE: This is an 82-year-old female, alert and oriented x3, pleasant, conver kaila, in no acute distress. HEENT: Pupils are equal, round, and reactive to light and accommodation. Extraocular muscles are in tact. No scleral icterus, no conjunctival injection. Nares patent. OP is clear. Oral mucosa dry a ppearing. NECK: Supple, no cervical adenopathy, no thyromegaly, no carotid bruits, no JVD appreciated. Cervic al spine with full active and passive range of motion. CHEST: Lungs are clear to auscultation bilaterally. CARDIOVASCULAR: S1, S2 without noted murmur, rub or gallop. ABDOMEN: Obese, soft, nontender, nondistended. Bowel sounds are positive in all four quadrants. Th ere is no hepatosplenomegaly, no abdominal bruits, no rebound or guarding appreciated. EXTREMITIES: Warm to touch bilaterally with large area of erythema on the right lower extremity from the knee to the ankle region. Circumferential erythema noted. Skin breakdown with superficial brenden sions and skin cracking. Positive tenderness to palpation. Pulses palpable distally at the dorsalis pedis, posterior tibial, and popliteal arteries bilaterally. Left lower extremity with a smaller ar ea of erythema in the distal third of the maguire. Chronic venous stasis changes bilaterally. Asymmetr ic edema noted, right greater than left lower extremity. NEUROLOGIC: Cranial nerves II-XII are grossly intact. No focal or lateralizing signs appreciated. The patient not observed ambulatory during this exam. MUSCULOSKELETAL: Multiple amputations of toes on the left foot. PERTINENT LABORATORY AND X-RAY FINDINGS: Sodium 135, potassium 3.1, chloride 88, CO2 of 33, BUN 100, creatinine 2.47, estimated GFR of 19, glucose 148. Lactic acid level ranged between 1.1-2.1, calciu m 10.2, total bilirubin 1.9, AST 19, ALT of 14, alkaline phosphatase 95. CBC showed a white blood ce ll count 20, hemoglobin 13.9, hematocrit 43, platelet count 249 with 72% neutrophils, 19% bands. Uri nalysis positive for blood, trace ketones, small bilirubin with 7-10 rbc's per high powered field, 11 -20 WBCs per high power field. Portable chest x-ray dated 02/04/2017 showed mild increased bronchova scular markings bilaterally. No acute process identified. EKG dated 02/04/2018 by my interpretation shows sinus mechanism with heart rates in the 80s. Attenuated R waves noted in the precordial leads . Normal axis. No acute ST-T wave changes appreciated. ASSESSMENT AND PLAN: 1. Bilateral lower extremity cellulitis, right greater than left. The patient will be admitted to [facility] medical floor. We will continue vancomycin 750 mg IV q. 24 hours. Add Rocephin 2 grams IV q.24 h ours. Wound Care consult pending. Elevate lower extremities while in bed. Consider lower extremity venous Doppler study if no clinical improvement in the next 48 hours. 2. Acute kidney injury on chronic kidney disease, stage 3. Avoid nephrotoxic agents and contrast me celso. Continue intravenous normal saline at 75 mL per hour. Serial creatinine monitoring. Limit con trast exposure. 3. Hypokalemia. Potassium supplementation with serial potassium monitoring. 4. Diabetes mellitus type 2, insulin requiring. Continue insulin sliding scale for reflexive covera ge. Resume home regimen of Lispro 45 units subcutaneously q.a.m. Accu-Cheks a.c. and at bedtime. 5. Status post fall. Appears a fall mediated by hypoglycemic episode. Obtain PT evaluation in the a.m. General fall risk precautions. 6. Prophylaxis. Heparin 5000 units subcutaneously t.i.d. Hold sequential compression devices due t o lower extremity infection and edema. PT evaluation in the a.m. 7. Code status is FULL. Surrogate medical decision maker is patient's granddaughter.
[2018-02-04] MEDS: Isosorbide Mononitrate 20 MG TAB PO SCH (21:52)
[2018-02-05] MEDS: traMADol HCl 50 MG TAB PO PRN ×3 (00:26→16:45)
[2018-02-05 04:16] LABS: Anion Gap 14 mmol/L (10-20); BUN (Urea Nitrogen) 88 mg/dL (9.8-20.1); Calc. Creatinine Clearance 32 mL/min (70-130); Carbon Dioxide 33 mmol/L (23-31); Chloride 94 mmol/L (98-107); Estimated GFR-MDRD 30; Glucose 190 mg/dL (83-110); Sodium 138 mmol/L (136-145)
[2018-02-05 04:20] LABS: Potassium 2.7 mmol/L (3.5-5.1)
[2018-02-05 04:25] LABS: Mean Corpuscular HGB CONC 32.9 g/dL (32.0-36.0); Mean Corpuscular Volume 91.2 fl (81.0-99.0); Mean Platelet Volume 6.7 fL (7.4-10.4); Platelet Count 178 thou/uL (130-400); RBC Distribution Width 14.6 % (11.5-14.5); Red Blood Cell (RBC) Count 3.66 mill/uL (4.20-5.40); White Blood Cell (WBC) Count 13.3 thou/uL (4.8-10.8)
[2018-02-05] MEDS: Levothyroxine 150 MCG TAB PO SCH (05:39)
[2018-02-05] MEDS: Sodium Chloride 0.9% 1,000 ML IV SCH ×2 (06:48→20:49)
[2018-02-05] MEDS: Potassium Chloride 20 MEQ TAB PO SCH ×2 (06:48→11:06)
[2018-02-05] MEDS: Carvedilol 6.25 MG TAB PO SCH ×2 (07:54→20:49)
[2018-02-05] MEDS: Gabapentin 300 MG CAP PO SCH ×3 (07:54→20:50)
[2018-02-05] MEDS: Amiodarone 200 MG TAB PO SCH (07:54)
[2018-02-05] MEDS: Aspirin 81 mg Enteric Coated Tablet PO SCH (07:54)
[2018-02-05] MEDS: Heparin 5,000 UNITS/ML VIAL SC SCH ×3 (07:55→20:57)
[2018-02-05] MEDS: Isosorbide Mononitrate 20 MG TAB PO SCH ×2 (07:55→20:50)
[2018-02-05] MEDS: Lubiprostone 24 MCG CAP PO SCH ×2 (07:55→17:34)
[2018-02-05] MEDS: Insulin NPH/Reg Insulin Hm 300 UNITS/3 ML VIAL SC SCH (09:37)
[2018-02-05] MEDS: Acetaminophen 500 MG TAB PO PRN (14:29)
[2018-02-05 15:21] LABS: Vancomycin, Random 6.6 ug/mL (See Comment)
--- NOTE | 2018-02-05 15:48 | PDOC.PN ---
- Subjective Encounter Start Date: 02/05/18 Encounter Start Time: 15:35 Subjective: f/u for bilat LE cellulitis and ANUM on current Vancomycin and Rocephin. -: Overall feels better. No fever or chills. - Objective Resuscitation Status: Resuscitation Status FULL:Full Resuscitation MAR Reviewed: Yes Vital Signs & Weight: Vital Signs (12 hours) Temp Pulse Resp BP BP Pulse Ox 02/05/18 08:00 98.0 F 58 L 16 96 02/05/18 07:54 126/66 02/05/18 07:16 98.0 F 58 L 16 114/50 L 96 02/05/18 04:00 98.1 F 57 L 18 115/68 95 Weight Admit Weight 164 lb 14.48 oz Weight 164 lb 14.48 oz I&O: 02/04/18 02/05/18 02/06/18 06:59 06:59 06:59 Intake Total 1050 480 Balance 1050 480 Result Diagrams: 02/05/18 03:50 02/05/18 03:50 Additional Labs: Accuchecks 02/05/18 02/05/18 02/04/18 11:24 05:57 20:00 POC Glucose 216 H 135 H 144 H 02/04/18 16:00 POC Glucose 145 H Microbiology 02/04/18 11:10 Urine Straight Catheter Urine Culture - Preliminary Escherichia coli 02/04/18 11:10 Buttock - Pending Bacterial Culture - Preliminary 02/04/18 10:55 Venous blood - Left Arm Blood Culture - Preliminary Specimen has been received and culture in progress. No Growth to date. 02/04/18 10:46 Venous blood - Right Arm Blood Culture - Preliminary Specimen has been received and culture in progress. No Growth to date. Laboratory Tests 02/04/18 02/04/18 02/04/18 10:46 10:46 14:33 WBC 20.0 H Band Neuts % (Manual) 19 H Potassium 3.1 L BUN 100 H Creatinine 2.47 H Lactic Acid 1.1 Random Vancomycin 02/05/18 14:51 WBC Band Neuts % (Manual) Potassium BUN Creatinine Lactic Acid Random Vancomycin 6.6 Phys Exam - Physical Examination Constitutional: NAD HEENT: PERRLA, sclera anicteric, oral pharynx no lesions Neck: no nodes, no JVD, supple, full ROM Respiratory: no wheezing, no rales, no rhonchi, clear to auscultation bilateral S1, S2 Cardiovascular: RRR, no significant murmur, no rub, gallop Gastrointestinal: soft, non-tender, no distention, positive bowel sounds L>R LE edema, erythematous regions persist with decreased erythema at margins Musculoskeletal: pulses present Neurological: normal sensation, moves all 4 limbs Psychiatric: normal affect, A&O x 3 Skin: normal turgor, cap refill <2 seconds Dx/Plan (1) Cellulitis of lower extremity Code(s): L03.119 - CELLULITIS OF UNSPECIFIED PART OF LIMB Status: Acute Comment: R>L with slow improvement, continue Vancomycin and Rocephin, local skin care (2) ANUM (acute kidney injury) Code(s): N17.9 - ACUTE KIDNEY FAILURE, UNSPECIFIED Status: Acute Comment: Improved, continue IVF, avoid nephrotoxic meds and limit contrast exposure, serial monitoring (3) CKD (chronic kidney disease), stage III Code(s): N18.3 - CHRONIC KIDNEY DISEASE, STAGE 3 (MODERATE) Status: Chronic Comment: See above (4) Hypokalemia Code(s): E87.6 - HYPOKALEMIA Status: Acute Comment: K-Dur 40meq BID and repeat K+ level in am (5) Diabetes type 2, controlled Code(s): E11.9 - TYPE 2 DIABETES MELLITUS WITHOUT COMPLICATIONS Status: Chronic Qualifiers: Diabetes mellitus intermodal customer service insulin use: with intermodal customer service use Diabetes mellitus complication detail: with chronic kidney disease Chronic kidney disease stage: stage 3 (moderate) Comment: Continue NPH 45u sc qAM, ISS, serial accuchecks (6) Fall Code(s): W19.XXXA - UNSPECIFIED FALL, INITIAL ENCOUNTER Status: Acute Comment: PT for functional assessment (7) E. coli UTI Code(s): N39.0 - URINARY TRACT INFECTION, SITE NOT SPECIFIED; B96.20 - UNSP ESCHERICHIA COLI THE CAUSE OF DISEASES CLASSD ELSWHR Status: Suspected Comment: Continue current Rocephin 2gm IV daily, await final Ucx results - Plan continue antibiotics, PT/OT, DVT proph w/heparin Stable overall -: Continue Vancomycin and Rocephin -: Local wound care -: Continue IV NS @ 75ml/h -: K-Dur 40meq BID * AM lab: BMP, CBC
[2018-02-05] MEDS ORDERED: Vancomycin HCl 750 MG in Sodium Chloride 0.9% 250 ML 250 ML IVPB SCH (16:00)
[2018-02-05] MEDS: Vancomycin HCl 1 GM in Premix Bag 1 BAG IVPB SCH (16:30)
[2018-02-05] MEDS: cefTRIAXone\\ROCEPHIN 2 GM in Sodium Chloride 0.9% 100 ML IVPB SCH (17:37)
[2018-02-05] MEDS: Famotidine 20 MG TAB PO SCH (20:49)
[2018-02-05] MEDS: Atorvastatin Calcium 10 MG TAB PO SCH (20:49)
[2018-02-05] MEDS: Lorazepam 0.5 MG TAB PO SCH (20:51)
[2018-02-06] MEDS: traMADol HCl 50 MG TAB PO PRN ×4 (00:10→21:57)
[2018-02-06] MEDS: Fentanyl 100 MCG/2 ML VIAL SLOW IVP PRN ×3 (02:35→18:45)
[2018-02-06] MEDS: Acetaminophen 500 MG TAB PO PRN ×2 (02:40→09:14)
[2018-02-06] MEDS: Levothyroxine 150 MCG TAB PO SCH (05:18)
[2018-02-06 05:35] LABS: Band 20 % (5-11); Hemoglobin 10.4 g/dL (12.0-16.0); Lymphocytes 11 % (21-51); MDiff Complete? YES; Mean Corpuscular HGB CONC 32.6 g/dL (32.0-36.0); Mean Corpuscular Hemoglobin 30.4 pg (27.0-31.0); Mean Corpuscular Volume 93.1 fl (81.0-99.0); Mean Platelet Volume 6.7 fL (7.4-10.4); Monocytes 6 % (0-10); Neutrophil 63 % (42-75); PLT Morphology Comment Appears Adequate; Platelet Count 186 thou/uL (130-400); RBC Distribution Width 14.6 % (11.5-14.5); Red Blood Cell (RBC) Count 3.44 mill/uL (4.20-5.40); White Blood Cell (WBC) Count 8.3 thou/uL (4.8-10.8)
[2018-02-06 05:43] LABS: Anion Gap 11 mmol/L (10-20); BUN (Urea Nitrogen) 56 mg/dL (9.8-20.1); Calc. Creatinine Clearance 52 mL/min (70-130); Calcium 9.1 mg/dL (7.8-10.44); Carbon Dioxide 32 mmol/L (23-31); Chloride 102 mmol/L (98-107); Estimated GFR-MDRD 54; Glucose 186 mg/dL (83-110); Potassium 3.5 mmol/L (3.5-5.1); Sodium 141 mmol/L (136-145)
[2018-02-06] MEDS: Insulin NPH/Reg Insulin Hm 300 UNITS/3 ML VIAL SC SCH (08:07)
[2018-02-06] MEDS: Gabapentin 300 MG CAP PO SCH ×3 (08:07→21:33)
[2018-02-06] MEDS: Isosorbide Mononitrate 20 MG TAB PO SCH ×2 (08:07→21:33)
[2018-02-06] MEDS: Aspirin 81 mg Enteric Coated Tablet PO SCH (08:08)
[2018-02-06] MEDS: Amiodarone 200 MG TAB PO SCH (08:08)
[2018-02-06] MEDS: Carvedilol 6.25 MG TAB PO SCH ×2 (08:08→21:33)
[2018-02-06] MEDS: Heparin 5,000 UNITS/ML VIAL SC SCH ×3 (08:08→21:34)
[2018-02-06] MEDS: Sodium Chloride 0.9% 1,000 ML IV SCH (10:08)
[2018-02-06] MEDS: Lubiprostone 24 MCG CAP PO SCH ×2 (10:08→16:24)
[2018-02-06] MEDS: D5 1/2 NS w/20 mEq KCL 1,000 ML IV SCH ×2 (14:54→22:11)
[2018-02-06] MEDS ORDERED: Hydrocortisone Sod Succ/PF 100 mg/2 ml Vial IVP SCH (15:00)
--- NOTE | 2018-02-06 15:02 | PDOC.PN ---
- Subjective Encounter Start Date: 02/06/18 (f/u cellulitis) Encounter Start Time: 15:01 Subjective: Pt c/o chest pain, back pain, right arm tingling and a change in her -: breathing. Started today, she is uncertain of when. Also c/o low blood -: sugars, able to drink juice - Objective Resuscitation Status: Resuscitation Status FULL:Full Resuscitation Vital Signs & Weight: Vital Signs (12 hours) Temp Pulse Resp BP BP Pulse Ox 02/06/18 14:15 192/81 H 02/06/18 08:08 126/66 02/06/18 08:00 97.9 F 62 16 97 02/06/18 07:25 97.9 F 62 16 137/63 99 Weight Admit Weight 164 lb 14.48 oz Weight 164 lb 14.48 oz I&O: 02/05/18 02/06/18 02/07/18 06:59 06:59 06:59 Intake Total 1050 2220 480 Balance 1050 2220 480 Result Diagrams: 02/06/18 04:31 02/06/18 14:59 Additional Labs: Accuchecks 02/06/18 02/06/18 02/06/18 14:22 14:04 13:03 POC Glucose 67 L 72 48 L* 02/06/18 02/06/18 02/05/18 11:47 04:26 20:29 POC Glucose 71 182 H 153 H 02/05/18 02/05/18 16:55 16:09 POC Glucose 85 51 L* EKG Reviewed by me: Yes (sinus, normal axis, WA interval 204, other intervals normal, no st changes.) Phys Exam - Physical Examination Constitutional: NAD fissures at angles of lips, oral mucosa slight erythema Respiratory: no wheezing, no rales, no rhonchi Cardiovascular: RRR 2/6 ARIELA, mild ttp along chest wall Gastrointestinal: soft, non-tender, no distention, positive bowel sounds non-pitting edema and erythema bilateral Neurological: non-focal Psychiatric: normal affect Deviation from normal: erythematous lower extremities bilateral Dx/Plan (1) Chest pain Code(s): R07.9 - CHEST PAIN, UNSPECIFIED Status: Acute Qualifiers: Chest pain type: unspecified Qualified Code(s): R07.9 - Chest pain, unspecified (2) Cellulitis of lower extremity Code(s): L03.119 - CELLULITIS OF UNSPECIFIED PART OF LIMB Status: Acute (3) Coronary artery disease Code(s): I25.10 - ATHSCL HEART DISEASE OF [place] CORONARY ARTERY W/O ANG PCTRS Status: Chronic Qualifiers: Coronary Disease-Associated Artery/Lesion type: [place] artery [place] vs. transplanted heart: [place] heart Associated angina: without angina Qualified Code(s): I25.10 - Atherosclerotic heart disease of [place] coronary artery without angina pectoris (4) Diabetes type 2, controlled Code(s): E11.9 - TYPE 2 DIABETES MELLITUS WITHOUT COMPLICATIONS Status: Chronic Qualifiers: Diabetes mellitus fci insulin use: with intermediate project manager use Diabetes mellitus complication detail: with chronic kidney disease Chronic kidney disease stage: stage 3 (moderate) (5) Dyslipidemia Code(s): E78.5 - HYPERLIPIDEMIA, UNSPECIFIED Status: Chronic (6) GERD (gastroesophageal reflux disease) Code(s): K21.9 - GASTRO-ESOPHAGEAL REFLUX DISEASE WITHOUT ESOPHAGITIS Status: Chronic Qualifiers: Esophagitis presence: esophagitis presence not specified Qualified Code(s) : K21.9 - Gastro-esophageal reflux disease without esophagitis (7) Hypertension Code(s): I10 - ESSENTIAL (PRIMARY) HYPERTENSION Status: Chronic Qualifiers: Hypertension type: essential hypertension Qualified Code(s): I10 - Essential (primary) hypertension (8) 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 Code(s): E11.649 - TYPE 2 DIABETES MELLITUS WITH HYPOGLYCEMIA WITHOUT COMA Status: Chronic (9) Paroxysmal atrial fibrillation Code(s): I48.0 - PAROXYSMAL ATRIAL FIBRILLATION Status: Chronic - Plan * Chest pain with known coronary disease - nitro SL x 3, ecg, serial troponin, transfer to [facility] * * Chronic steroids - pt reports for arthritis - do not see that this was ordered since admission. One dose of hydrocortisone now, and then usual 10 mg prednisone daily. * * Cellulitis - continue Vanc and Rocephin, and local wound care * * Hypoglycemia - stop insulin - both short and long-acting insulin, start D5 1/ 2 NS at maintenance rates. Resume short acting when stable blood sugars and check q2h glucose * * mouth sores/angles of lips are fissured/ulcerated - topical bactroban to lips and nystatin * * Other medical conditions - continue current home meds * * dvt prophy- heparin * gi prophy - not indicated, taking PO * code status full * * reviewed plan of care with patient, no questions or further needs at end of eval. Pt remains at high risk in current condition. * * Addendum - 16:00 - first troponin 0.031. Ordered an echo and cardiology consult.
[2018-02-06 15:21] LABS: Anion Gap 12 mmol/L (10-20); BUN (Urea Nitrogen) 41 mg/dL (9.8-20.1); Calc. Creatinine Clearance 53 mL/min (70-130); Calcium 9.9 mg/dL (7.8-10.44); Carbon Dioxide 33 mmol/L (23-31); Chloride 104 mmol/L (98-107); Estimated GFR-MDRD 55; Glucose 75 mg/dL (83-110); Potassium 3.8 mmol/L (3.5-5.1); Sodium 145 mmol/L (136-145)
[2018-02-06 15:26] LABS: Troponin I 0.031 ng/mL (< 0.028)
[2018-02-06] MEDS: Vancomycin HCl 1 GM in Premix Bag 1 BAG IVPB SCH (15:35)
[2018-02-06] MEDS: Vancomycin HCl 1.5 GM in Sodium Chloride 0.9% 250 ML 300 ML IVPB SCH (16:15)
[2018-02-06] MEDS: Nystatin 500,000 UNITS/5 ML UDCUP SSW SCH ×2 (16:24→21:32)
[2018-02-06] MEDS: hydrALAZINE 20 MG/ML VIAL SLOW IVP PRN (18:00)
--- NOTE | 2018-02-06 18:25 | PDOC.EVN ---
Event Note - Event Note Event Note: called by RN for persistent pain - has received nitro earlier, and a dose of fentanyl about 3 hours ago. RN reports pt sitting comfortably and eating dinner. Will change fentanyl to q2h prn, and continue monitoring and next 2 sets of troponins.
[2018-02-06 19:12] LABS: Troponin I 0.019 ng/mL (< 0.028)
[2018-02-06] MEDS: cefTRIAXone\\ROCEPHIN 2 GM in Sodium Chloride 0.9% 100 ML IVPB SCH (20:19)
[2018-02-06 21:27] LABS: Troponin I 0.016 ng/mL (< 0.028)
[2018-02-06] MEDS: Atorvastatin Calcium 10 MG TAB PO SCH (21:33)
[2018-02-06] MEDS: Lorazepam 0.5 MG TAB PO SCH (21:34)
[2018-02-06] MEDS: Mupirocin 2% Ointment 22 GM Tube TOP SCH ×2 (22:02→22:36)
[2018-02-06] MEDS ORDERED: HumaLOG 300 UNITS/3 ML VIAL SC PRN (23:06)
[2018-02-06] MEDS ORDERED: Calcium Carbonate 500 MG ChewTAB PO PRN (23:11)
--- NOTE | 2018-02-06 23:14 | PDOC.EVN ---
Event Note - Event Note Event Note: pt's blood sugars now up in the 270's - will d/c the d5 1/2 ns, start insulin with meals and bedtime (although allow to run high tonight due to the hypoglycemia during the day and 70/30 insulin she received). Tomorrow it will need to be determined which (if any) long-acting insulin is needed and the proper dose. pt c/o gerd sx and asking RN for protonix - ordered this and tums. 2 final troponins negative. reviewed plan of care with RN, no questions or further needs at end of call.
--- NOTE | 2018-02-07 03:19 | CON ---
DATE OF CONSULTATION: 02/06/2018 HISTORY OF PRESENT ILLNESS: Arminda Ivory is a pleasant 82-year-old white female, patient of Dr. Pappas. She has undergone previous stent placement in the proximal and mid LAD. In 05/2016, she had in-stent restenosis of the proximal portion of the stent. Drug-eluting stents - 3.5 x 16 and 3.5 x 12 were placed at that time. In 05/2017, she underwent repeat catheterization and had widely patent stents with minimal disease in other locations. She has been hospitalized multiple times for diastolic dysfunction. She also has moderate aortic stenosis. She now is admitted with increased pain, swelling , and redness of her legs. She was admitted to medical, but complained of chest discomfort. She described as a burning type pain that shoots across her chest, but only last 5 to 7 seconds. The pain also is pleuritic in nature. With that history, she has moved to telemetry. PAST MEDICAL HISTORY: Hypertension, hyperlipidemia, diabetes, coronary artery disease, diastolic dysfunction, chronic kidney disease, history of paroxysmal atrial fibrillation. 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 MEDICATIONS: Amiodarone 200 mg daily, aspirin 81 daily, atorvastatin 10 mg at bedtime, gabapentin 600 t.i.d., insulin, levothyroxine 150 mcg daily, Ativan 0.5 mg at bedtime, Amitiza 24 mcg b.i.d., metolazone 5 mg every Wednesday, Wednesday, Wednesday, torsemide 20 mg b.i.d., prednisone 10 mg daily, potassium 20 mEq daily, omeprazole 40 daily. ALLERGIES: HYDROCODONE. SOCIAL HISTORY: She does not smoke or drink. FAMILY HISTORY: Unremarkable. REVIEW OF SYSTEMS: Unremarkable except as noted above. PHYSICAL EXAMINATION: VITAL SIGNS: Blood pressure 187/86, pulse 72. HEENT: PERRL. CHEST: Clear. CARDIOVASCULAR: S1, S2 normal without any S3 or S4. There is a 2/6 systolic murmur along the left sternal border and in the aortic area. ABDOMEN: Normal bowel sounds without tenderness or organomegaly. EXTREMITIES: Revealed 1-2+ pretibial edema as well as erythema of both lower extremities. NEUROLOGIC: Grossly intact. LABORATORY DATA: EKG reveals normal sinus rhythm with poor R-wave progression V1-V2. No acute changes. Hemoglobin 10.4, hematocrit 32.0, white count 8300, platelets 186,000. Sodium 145, potassium 3.8, chloride 104, carbon dioxide 33, BUN 41, creatinine 0.97, troponin I 0.031. She has multiple elevated troponin I 's in the past. Subsequent troponin I's have been normal. IMPRESSION: 1. Atypical chest discomfort lasting seconds at a time. 2. History of placement of left anterior descending stent and then in 03/2016 underwent placement of drug-eluting stent in an area of in-stent restenosis. She was recatheterized in 03/2017 with continued good results. 3. Hypertension. 4. Hyperlipidemia. 5. Acute on chronic diastolic heart failure. 6. Moderate aortic stenosis. PLAN: Ms. Ivory's current chest pain is very atypical in nature. She just underwent cardiac catheterization 8 months ago and was found to have widely patent stents with only minimal disease in other areas. She will continue to be diuresed and treated with antibiotics for lower extremity cellulitis. PATTI
[2018-02-07 05:12] LABS: #Lymphocytes 1.2 thou/uL (1.20-3.40); #Monocytes 0.8 thou/uL (0.11-0.59); %Basophils 0.2 % (0.0-1.0); %Eosinophils 0.6 % (0.0-10.0); %Lymphocytes 20.1 % (21.0-51.0); %Monocytes 12.8 % (0.0-10.0); %Neutrophils 66.3 % (42.0-75.0); Hemoglobin 10.7 g/dL (12.0-16.0); Mean Corpuscular HGB CONC 31.2 g/dL (32.0-36.0); Mean Corpuscular Hemoglobin 29.3 pg (27.0-31.0); Mean Corpuscular Volume 94.1 fl (81.0-99.0); Mean Platelet Volume 6.4 fL (7.4-10.4); Platelet Count 196 thou/uL (130-400); RBC Distribution Width 14.4 % (11.5-14.5); Red Blood Cell (RBC) Count 3.64 mill/uL (4.20-5.40)
[2018-02-07] MEDS: Levothyroxine 150 MCG TAB PO SCH (05:37)
[2018-02-07 06:07] LABS: Anion Gap 12 mmol/L (10-20); BUN (Urea Nitrogen) 29 mg/dL (9.8-20.1); Calc. Creatinine Clearance 60 mL/min (70-130); Calcium 9.4 mg/dL (7.8-10.44); Carbon Dioxide 30 mmol/L (23-31); Chloride 105 mmol/L (98-107); Estimated GFR-MDRD 63; Glucose 150 mg/dL (83-110); Potassium 3.9 mmol/L (3.5-5.1); Sodium 143 mmol/L (136-145)
[2018-02-07] MEDS: predniSONE 20 MG TAB PO SCH (08:03)
[2018-02-07] MEDS: Isosorbide Mononitrate 20 MG TAB PO SCH ×2 (08:04→20:12)
[2018-02-07] MEDS: traMADol HCl 50 MG TAB PO PRN ×2 (08:04→20:12)
[2018-02-07] MEDS: Nystatin 500,000 UNITS/5 ML UDCUP SSW SCH ×4 (08:05→20:11)
[2018-02-07] MEDS: Gabapentin 300 MG CAP PO SCH ×3 (08:05→20:11)
[2018-02-07] MEDS: Amiodarone 200 MG TAB PO SCH (08:05)
[2018-02-07] MEDS: Heparin 5,000 UNITS/ML VIAL SC SCH ×3 (08:05→20:12)
[2018-02-07] MEDS: Aspirin 325 MG TAB PO SCH (08:05)
[2018-02-07] MEDS: Carvedilol 6.25 MG TAB PO SCH (08:06)
[2018-02-07] MEDS: Mupirocin 2% Ointment 22 GM Tube TOP SCH ×3 (08:06→20:13)
[2018-02-07] MEDS: Ondansetron ODT 4 MG TAB PO PRN ×2 (08:19→16:09)
[2018-02-07] MEDS: Fentanyl 100 MCG/2 ML VIAL SLOW IVP PRN ×5 (09:49→21:38)
[2018-02-07] MEDS: HumaLOG 300 UNITS/3 ML VIAL SC PRN (12:28)
[2018-02-07] MEDS ORDERED: Furosemide 20 MG/2 ML VIAL SLOW IVP SCH (13:00)
[2018-02-07] MEDS ORDERED: Metolazone 5 MG TAB PO SCH (13:30)
--- NOTE | 2018-02-07 13:30 | PRG ---
DATE OF SERVICE: 02/07/2018 Ms. Ivory states she is short of breath, has trouble getting a deep breath. No chest pain. OBJECTIVE: VITAL SIGNS: Blood pressure is elevated 174/72, pulse 62 regular. LUNGS: Clear. CARDIAC: Normal S1 and normal S2. There is a 3/6 crescendo decrescendo murmur of aortic stenosis. ABDOMEN: Soft, nontender. EXTREMITIES: Moderate to severe edema. ASSESSMENT: 1. Congestive heart failure, diastolic. 2. Coronary artery disease, patent stents on catheterization in the winter of 2016. 3. Cellulitis. PLAN: 1. Increase diuretics. 2. Reduce carvedilol for now. 3. I will follow with you.
[2018-02-07] MEDS: Furosemide 40 MG/4 ML VIAL SLOW IVP SCH (14:36)
--- NOTE | 2018-02-07 15:04 | EKG ---
Test Reason : Blood Pressure : / mmHG Vent. Rate : 068 BPM Atrial Rate : 068 BPM P-R Int : 204 ms QRS Dur : 076 ms QT Int : 400 ms P-R-T Axes : 065 010 108 degrees QTc Int : 425 ms Normal sinus rhythm Nonspecific ST and T wave abnormality Abnormal ECG When compared with ECG of 04-FEB-2018 10:37, (Unconfirmed) Criteria for Anteroseptal infarct are no longer Present No significant change was found Confirmed by MILES WHITE ([id number]) on 02/07/2018 3:04:17 PM Referred By: SHARON Confirmed By:MILES WHITE
[2018-02-07] MEDS: hydrALAZINE 20 MG/ML VIAL SLOW IVP PRN (15:59)
[2018-02-07] MEDS: Vancomycin HCl 1.5 GM in Sodium Chloride 0.9% 250 ML 300 ML IVPB SCH (16:00)
[2018-02-07] MEDS: cefTRIAXone\\ROCEPHIN 2 GM in Sodium Chloride 0.9% 100 ML IVPB SCH ×2 (18:41→20:58)
--- NOTE | 2018-02-07 18:44 | PDOC.PN ---
- Subjective Encounter Start Date: 02/07/18 Encounter Start Time: 18:00 Subjective: f/u for cellulitis of LE's on current Vanc/Rocephin. Apparently transferred -: to tele after c/o dyspnea. - Objective Resuscitation Status: Resuscitation Status FULL:Full Resuscitation MAR Reviewed: Yes Vital Signs & Weight: Vital Signs (12 hours) Temp Pulse Resp BP BP Pulse Ox 02/07/18 16:17 146/67 H 02/07/18 15:59 63 195/84 H 02/07/18 15:50 63 20 98 02/07/18 12:20 98.9 F 62 24 H 174/72 H 95 02/07/18 08:25 97.6 F 61 20 166/74 H 96 02/07/18 08:06 166/74 H Weight Admit Weight 164 lb 14.48 oz Weight 173 lb 1.6 oz I&O: 02/06/18 02/07/18 02/08/18 06:59 06:59 06:59 Intake Total 2220 960 Output Total 600 Balance 2220 360 Result Diagrams: 02/07/18 04:38 02/07/18 04:38 Additional Labs: Accuchecks 02/07/18 02/07/18 02/07/18 16:40 13:52 11:08 POC Glucose 192 H 286 H 284 H 02/07/18 02/07/18 02/07/18 08:15 06:22 03:59 POC Glucose 151 H 137 H 143 H 02/07/18 02/07/18 02/06/18 01:57 00:24 22:11 POC Glucose 209 H 214 H 289 H Microbiology 02/04/18 11:10 Urine Straight Catheter Urine Culture - Final Escherichia coli 02/04/18 11:10 Buttock - Pending Bacterial Culture - Final Proteus mirabilis Gram Negative Praveen#2 Presumptive Pseudomonas Enterococcus species 02/04/18 11:10 Urine Straight Catheter Urine Culture - Preliminary Escherichia coli 02/04/18 11:10 Buttock - Pending Bacterial Culture - Preliminary 02/04/18 10:55 Venous blood - Left Arm Blood Culture - Preliminary Specimen has been received and culture in progress. No Growth to date. 02/04/18 10:55 Venous blood - Left Arm Blood Culture - Preliminary NO GROWTH AT 48 HOURS 02/04/18 10:46 Venous blood - Right Arm Blood Culture - Preliminary Specimen has been received and culture in progress. No Growth to date. 02/04/18 10:46 Venous blood - Right Arm Blood Culture - Preliminary NO GROWTH AT 48 HOURS Laboratory Tests 02/04/18 02/04/18 02/04/18 10:46 10:46 14:33 WBC 20.0 H Band Neuts % (Manual) 19 H Potassium 3.1 L BUN 100 H Creatinine 2.47 H Lactic Acid 1.1 Random Vancomycin 02/05/18 02/05/18 02/06/18 03:50 14:51 04:31 WBC 13.3 H 8.3 Band Neuts % (Manual) 20 H Potassium BUN Creatinine Lactic Acid Random Vancomycin 6.6 EKG Reviewed by me: Yes (Tele - SR) Phys Exam - Physical Examination somnolent, awakes to name and direct engagement HEENT: PERRLA, sclera anicteric, oral pharynx no lesions Neck: no nodes, no JVD, supple, full ROM diminished in bases Respiratory: no wheezing, no rales, no rhonchi, clear to auscultation bilateral S1, S2 Cardiovascular: RRR, no rub, gallop Gastrointestinal: soft, non-tender, no distention, positive bowel sounds LLE>RLE edema with erythema and chronic skin changes below the knee Musculoskeletal: pulses present Neurological: non-focal, normal sensation, moves all 4 limbs Psychiatric: A&O x 3 Skin: normal turgor, cap refill <2 seconds Dx/Plan (1) Cellulitis of lower extremity Code(s): L03.119 - CELLULITIS OF UNSPECIFIED PART OF LIMB Status: Acute Comment: Slow improvement, continue Vancomycin and Rocephin, WBC normalizing (2) ANUM (acute kidney injury) Code(s): N17.9 - ACUTE KIDNEY FAILURE, UNSPECIFIED Status: Acute Comment: Improved, continue IVF, avoid nephrotoxic meds and limit contrast exposure, serial monitoring (3) CKD (chronic kidney disease), stage III Code(s): N18.3 - CHRONIC KIDNEY DISEASE, STAGE 3 (MODERATE) Status: Chronic Comment: See above (4) Hypokalemia Code(s): E87.6 - HYPOKALEMIA Status: Acute Comment: Resolving, (5) Diabetes type 2, controlled Code(s): E11.9 - TYPE 2 DIABETES MELLITUS WITHOUT COMPLICATIONS Status: Chronic Qualifiers: Diabetes mellitus [facility] insulin use: with [facility] use Diabetes mellitus complication detail: with chronic kidney disease Chronic kidney disease stage: stage 3 (moderate) (6) Fall Code(s): W19.XXXA - UNSPECIFIED FALL, INITIAL ENCOUNTER Status: Acute Comment: PT for functional assessment (7) E. coli UTI Code(s): N39.0 - URINARY TRACT INFECTION, SITE NOT SPECIFIED; B96.20 - UNSP ESCHERICHIA COLI THE CAUSE OF DISEASES CLASSD ELSWHR Status: Suspected Comment: Continue current Rocephin 2gm IV daily, await final Ucx results - Plan continue antibiotics, PT/OT, social service technician, respiratory therapy, DVT proph w/ SCDs Stable overall -: Continue Vancomycin and Rocephin for LE cellulitis -: Lasix 40mg IV q12h -: Monitor renal funciton closely as initially admitted with ANUM -: Decrease Fentanyl 25mcg IV q4h prn * AM lab: BMP * Transfer to medical in am
[2018-02-07] MEDS: Carvedilol 3.125 MG TAB PO SCH (20:11)
[2018-02-07] MEDS: Atorvastatin Calcium 10 MG TAB PO SCH (20:12)
[2018-02-07] MEDS: Lorazepam 0.5 MG TAB PO SCH (20:13)
[2018-02-07] MEDS ORDERED: Carvedilol 6.25 MG TAB PO SCH (21:00)
[2018-02-08] MEDS: Fentanyl 100 MCG/2 ML VIAL SLOW IVP PRN ×3 (01:49→20:45)
[2018-02-08] MEDS: Acetaminophen 500 MG TAB PO PRN ×3 (04:43→18:46)
[2018-02-08 05:48] LABS: Anion Gap 13 mmol/L (10-20); BUN (Urea Nitrogen) 24 mg/dL (9.8-20.1); Calc. Creatinine Clearance 65 mL/min (70-130); Calcium 9.5 mg/dL (7.8-10.44); Carbon Dioxide 31 mmol/L (23-31); Chloride 103 mmol/L (98-107); Estimated GFR-MDRD 66; Glucose 143 mg/dL (83-110); Potassium 3.9 mmol/L (3.5-5.1); Sodium 143 mmol/L (136-145)
[2018-02-08] MEDS: Levothyroxine 150 MCG TAB PO SCH (06:17)
[2018-02-08] MEDS: Furosemide 40 MG/4 ML VIAL SLOW IVP SCH ×2 (06:17→13:21)
[2018-02-08] MEDS: Nystatin 500,000 UNITS/5 ML UDCUP SSW SCH ×4 (08:37→20:34)
[2018-02-08] MEDS: Gabapentin 300 MG CAP PO SCH ×3 (08:38→20:26)
[2018-02-08] MEDS: Isosorbide Mononitrate 20 MG TAB PO SCH ×2 (08:39→20:26)
[2018-02-08] MEDS: predniSONE 20 MG TAB PO SCH (08:39)
[2018-02-08] MEDS: Carvedilol 3.125 MG TAB PO SCH ×2 (08:40→20:28)
[2018-02-08] MEDS: Aspirin 325 MG TAB PO SCH (08:40)
[2018-02-08] MEDS: Amiodarone 200 MG TAB PO SCH (08:40)
[2018-02-08] MEDS: Heparin 5,000 UNITS/ML VIAL SC SCH ×3 (08:40→20:35)
[2018-02-08] MEDS ORDERED: Metolazone 5 MG TAB PO SCH (09:45)
[2018-02-08] MEDS ORDERED: Potassium Chloride 20 MEQ TAB PO SCH ×2 (09:45)
--- NOTE | 2018-02-08 10:03 | PRG ---
DATE OF SERVICE: 02/08/2018 HISTORY: Ms. Ivory states she does not feel like she is breathing much better. She has severe sore s in her mouth. PHYSICAL EXAMINATION: VITAL SIGNS: Blood pressure is 156/74, pulse 70. LUNGS: Clear. CARDIAC: There is aortic stenosis murmur, crescendo decrescendo as before systolic. ABDOMEN: Soft, nontender. EXTREMITIES: There is moderate edema. MOUTH: She has got sores breaking out in her mouth. PERTINENT LABORATORY DATA: Potassium is 3.9, creatinine is 0.8. The I&O does not look accurate. Fo rtunately, she has a Lea catheter in place and now she has been measured as 2 liters out in the las t shift. Her weight is not reliable. The echocardiogram showed normal left ventricular function with moderate to severe aortic stenosis, m ore significant than before. Valve area is 1.1 cm2. ASSESSMENT: 1. Congestive heart failure, diastolic with normal ejection fraction. 2. Aortic stenosis, moderate to severe. 3. Cellulitis. 4. Coronary artery disease, stable. PLAN: 1. Increase diuretic, still volume overloaded. 2. Continue antibiotics. 3. We will need some attention to the sores in her mouth ? related to thrush.
[2018-02-08] MEDS: Mupirocin 2% Ointment 22 GM Tube TOP SCH ×3 (11:08→20:37)
[2018-02-08] MEDS: HumaLOG 300 UNITS/3 ML VIAL SC PRN ×2 (11:20→18:13)
[2018-02-08] MEDS: Nitroglycerin 0.4 MG TAB (25 Tab Bottle) SL PRN (12:21)
[2018-02-08] MEDS: traMADol HCl 50 MG TAB PO PRN ×2 (13:14→18:45)
--- NOTE | 2018-02-08 13:57 | PDOC.PN ---
- Subjective Encounter Start Date: 02/08/18 Encounter Start Time: 13:45 Subjective: f/u for cellulitis of LE's on Rocephin and Vancomycin. Overall improved -: and feeling better. Some somatic complaints but o/w doing ok. - Objective Resuscitation Status: Resuscitation Status FULL:Full Resuscitation MAR Reviewed: Yes Vital Signs & Weight: Vital Signs (12 hours) Temp Pulse Resp BP Pulse Ox 02/08/18 12:33 72 18 145/78 H 96 02/08/18 12:21 64 19 189/88 H 94 L 02/08/18 11:18 97.9 F 69 18 156/76 H 94 L 02/08/18 08:05 97.8 F 71 21 H 02/08/18 04:00 97.8 F 71 21 H 156/74 H 94 L Weight Admit Weight 164 lb 14.48 oz Weight 180 lb 9.6 oz I&O: 02/07/18 02/08/18 02/09/18 06:59 06:59 06:59 Intake Total 960 1680 Output Total 600 2100 Balance 360 -420 Result Diagrams: 02/07/18 04:38 02/08/18 04:57 Additional Labs: Accuchecks 02/08/18 02/08/18 02/07/18 10:32 06:29 20:30 POC Glucose 280 H 158 H 187 H 02/07/18 02/07/18 16:40 13:52 POC Glucose 192 H 286 H Microbiology 02/04/18 11:10 Urine Straight Catheter Urine Culture - Final Escherichia coli 02/04/18 11:10 Buttock - Pending Bacterial Culture - Final Proteus mirabilis Gram Negative Praveen#2 Presumptive Pseudomonas Enterococcus species 02/04/18 11:10 Urine Straight Catheter Urine Culture - Preliminary Escherichia coli 02/04/18 11:10 Buttock - Pending Bacterial Culture - Preliminary 02/04/18 10:55 Venous blood - Left Arm Blood Culture - Preliminary Specimen has been received and culture in progress. No Growth to date. 02/04/18 10:55 Venous blood - Left Arm Blood Culture - Preliminary NO GROWTH AT 48 HOURS 02/04/18 10:46 Venous blood - Right Arm Blood Culture - Preliminary Specimen has been received and culture in progress. No Growth to date. 02/04/18 10:46 Venous blood - Right Arm Blood Culture - Preliminary NO GROWTH AT 48 HOURS Laboratory Tests 02/04/18 02/04/18 02/04/18 10:46 10:46 14:33 WBC 20.0 H Band Neuts % (Manual) 19 H Potassium 3.1 L BUN 100 H Creatinine 2.47 H Lactic Acid 1.1 Random Vancomycin 02/05/18 02/05/18 02/06/18 03:50 14:51 04:31 WBC 13.3 H 8.3 Band Neuts % (Manual) 20 H Potassium BUN Creatinine Lactic Acid Random Vancomycin 6.6 Radiology Reviewed by me: Yes (2D echo - EF 55%, mod-sever , mod-severe LAE) EKG Reviewed by me: Yes (Tele - SR) Phys Exam - Physical Examination Constitutional: NAD scattered superficial ulcerations and plaque HEENT: PERRLA, sclera anicteric Neck: no nodes, no JVD, supple, full ROM Respiratory: no wheezing, no rales, no rhonchi, clear to auscultation bilateral II/ ARIELA in RUSB S1, S2 Cardiovascular: RRR, no rub, gallop Gastrointestinal: soft, non-tender, no distention, positive bowel sounds R> LLE edema, decreased erythema, chronic venous stasis changes bilat Musculoskeletal: pulses present Neurological: normal sensation, moves all 4 limbs Psychiatric: normal affect, A&O x 3 Skin: no rash, normal turgor, cap refill <2 seconds Dx/Plan (1) Cellulitis of lower extremity Code(s): L03.119 - CELLULITIS OF UNSPECIFIED PART OF LIMB Status: Acute Comment: Slow improvement, continue Vancomycin and Rocephin, WBC normalizing (2) ANUM (acute kidney injury) Code(s): N17.9 - ACUTE KIDNEY FAILURE, UNSPECIFIED Status: Acute Comment: Improved, continue IVF, avoid nephrotoxic meds and limit contrast exposure, serial monitoring (3) CKD (chronic kidney disease), stage III Code(s): N18.3 - CHRONIC KIDNEY DISEASE, STAGE 3 (MODERATE) Status: Chronic Comment: See above (4) Hypokalemia Code(s): E87.6 - HYPOKALEMIA Status: Acute Comment: Resolving, (5) Diabetes type 2, controlled Code(s): E11.9 - TYPE 2 DIABETES MELLITUS WITHOUT COMPLICATIONS Status: Chronic Qualifiers: Diabetes mellitus terminologist insulin use: with group home use Diabetes mellitus complication detail: with chronic kidney disease Chronic kidney disease stage: stage 3 (moderate) (6) Fall Code(s): W19.XXXA - UNSPECIFIED FALL, INITIAL ENCOUNTER Status: Acute Comment: PT for functional assessment, RW with SBA (7) E. coli UTI Code(s): N39.0 - URINARY TRACT INFECTION, SITE NOT SPECIFIED; B96.20 - UNSP ESCHERICHIA COLI THE CAUSE OF DISEASES CLASSD ELSWHR Status: Suspected Comment: Continue current Rocephin 2gm IV daily - Plan continue antibiotics, PT/OT, social science teacher, out of bed/ambulate, DVT proph w/ heparin Stable overall -: Continue Vancomycin and Rocephin -: Local WCT -: OOB/ambulate with PT -: Lidocaine SSP TID * AM lab: BMP * Transfer to medical floor
[2018-02-08] MEDS ORDERED: Lidocaine Viscous Sol 2% 15 ml UD Cup SSP SCH (15:00)
[2018-02-08 15:20] LABS: Vancomycin, Trough 15.2 ug/mL
[2018-02-08] MEDS ORDERED: Lorazepam 0.5 MG TAB PO SCH (16:15)
[2018-02-08] MEDS: Lidocaine Viscous Sol 2% 15 ml UD Cup SSP SCH (16:48)
[2018-02-08] MEDS: Potassium Chloride 20 MEQ TAB PO SCH (16:49)
[2018-02-08] MEDS: Vancomycin HCl 1.5 GM in Sodium Chloride 0.9% 250 ML 300 ML IVPB SCH (17:06)
[2018-02-08] MEDS ORDERED: Furosemide 40 MG/4 ML VIAL SLOW IVP SCH (20:00)
[2018-02-08] MEDS: cefTRIAXone\\ROCEPHIN 2 GM in Sodium Chloride 0.9% 100 ML IVPB SCH (20:11)
[2018-02-08] MEDS: Atorvastatin Calcium 10 MG TAB PO SCH (20:25)
[2018-02-08] MEDS: Lorazepam 0.5 MG TAB PO SCH (20:25)
[2018-02-09] MEDS: Fentanyl 100 MCG/2 ML VIAL SLOW IVP PRN ×6 (01:34→20:40)
[2018-02-09] MEDS: Furosemide 40 MG/4 ML VIAL SLOW IVP SCH ×2 (05:33→13:29)
[2018-02-09] MEDS: Levothyroxine 150 MCG TAB PO SCH (05:35)
[2018-02-09 05:40] LABS: Anion Gap 10 mmol/L (10-20); BUN (Urea Nitrogen) 25 mg/dL (9.8-20.1); Calc. Creatinine Clearance 58 mL/min (70-130); Calcium 9.5 mg/dL (7.8-10.44); Carbon Dioxide 36 mmol/L (23-31); Chloride 101 mmol/L (98-107); Estimated GFR-MDRD 55; Glucose 234 mg/dL (83-110); Potassium 4.2 mmol/L (3.5-5.1); Sodium 143 mmol/L (136-145)
[2018-02-09] MEDS: Mupirocin 2% Ointment 22 GM Tube TOP SCH ×3 (08:40→20:36)
[2018-02-09] MEDS: traMADol HCl 50 MG TAB PO PRN ×2 (08:41→22:51)
[2018-02-09] MEDS: Lidocaine Viscous Sol 2% 15 ml UD Cup SSP SCH ×3 (08:42→17:09)
[2018-02-09] MEDS: Acetaminophen 500 MG TAB PO PRN ×2 (08:42→22:50)
[2018-02-09] MEDS: Nystatin 500,000 UNITS/5 ML UDCUP SSW SCH ×4 (08:42→20:21)
[2018-02-09] MEDS: Potassium Chloride 20 MEQ TAB PO SCH ×2 (08:43→17:08)
[2018-02-09] MEDS: Isosorbide Mononitrate 20 MG TAB PO SCH ×2 (08:43→21:04)
[2018-02-09] MEDS: Carvedilol 3.125 MG TAB PO SCH ×2 (08:43→20:21)
[2018-02-09] MEDS: Amiodarone 200 MG TAB PO SCH (08:43)
[2018-02-09] MEDS: Aspirin 325 MG TAB PO SCH (08:43)
[2018-02-09] MEDS: Gabapentin 300 MG CAP PO SCH ×3 (08:43→20:21)
[2018-02-09] MEDS: Heparin 5,000 UNITS/ML VIAL SC SCH ×3 (08:44→20:24)
[2018-02-09] MEDS: predniSONE 20 MG TAB PO SCH (08:44)
[2018-02-09] MEDS: Nitroglycerin 0.4 MG TAB (25 Tab Bottle) SL PRN (08:55)
[2018-02-09] MEDS: HumaLOG 300 UNITS/3 ML VIAL SC PRN ×2 (11:06→16:40)
[2018-02-09] MEDS: Vancomycin HCl 1.5 GM in Sodium Chloride 0.9% 250 ML 300 ML IVPB SCH (15:23)
--- NOTE | 2018-02-09 16:33 | PDOC.PN ---
- Subjective Encounter Start Date: 02/09/18 Encounter Start Time: 16:30 Subjective: f/u LE cellulitis on Rocephin and Vancomycin. Overall improving with -: residual chronic erythema and venous stasis changes. - Objective Resuscitation Status: Resuscitation Status FULL:Full Resuscitation MAR Reviewed: Yes Vital Signs & Weight: Vital Signs (12 hours) Temp Pulse Resp BP Pulse Ox 02/09/18 08:00 98.2 F 80 18 126/59 L 94 L Weight Admit Weight 164 lb 14.48 oz Weight 180 lb 9.6 oz I&O: 02/08/18 02/09/18 02/10/18 06:59 06:59 06:59 Intake Total 1680 1989.5 Output Total 2100 3475 1100 Balance -420 -1485.5 -1100 Result Diagrams: 02/07/18 04:38 02/09/18 04:56 Additional Labs: Accuchecks 02/09/18 02/09/18 02/08/18 11:00 05:24 21:03 POC Glucose 282 H 215 H 171 H 02/08/18 16:55 POC Glucose 261 H Microbiology 02/04/18 11:10 Urine Straight Catheter Urine Culture - Final Escherichia coli 02/04/18 11:10 Buttock - Pending Bacterial Culture - Final Proteus mirabilis Gram Negative Praveen#2 Presumptive Pseudomonas Enterococcus species 02/04/18 11:10 Urine Straight Catheter Urine Culture - Preliminary Escherichia coli 02/04/18 11:10 Buttock - Pending Bacterial Culture - Preliminary 02/04/18 10:55 Venous blood - Left Arm Blood Culture - Preliminary Specimen has been received and culture in progress. No Growth to date. 02/04/18 10:55 Venous blood - Left Arm Blood Culture - Preliminary NO GROWTH AT 48 HOURS 02/04/18 10:46 Venous blood - Right Arm Blood Culture - Preliminary Specimen has been received and culture in progress. No Growth to date. 02/04/18 10:46 Venous blood - Right Arm Blood Culture - Preliminary NO GROWTH AT 48 HOURS Laboratory Tests 02/04/18 02/04/18 02/04/18 10:46 10:46 14:33 WBC 20.0 H Band Neuts % (Manual) 19 H Potassium 3.1 L BUN 100 H Creatinine 2.47 H Lactic Acid 1.1 Vancomycin Trough Random Vancomycin 02/05/18 02/05/18 02/06/18 03:50 14:51 04:31 WBC 13.3 H 8.3 Band Neuts % (Manual) 20 H Potassium BUN Creatinine Lactic Acid Vancomycin Trough Random Vancomycin 6.6 02/08/18 14:55 WBC Band Neuts % (Manual) Potassium BUN Creatinine Lactic Acid Vancomycin Trough 15.2 Random Vancomycin Phys Exam - Physical Examination Constitutional: NAD aphthous ulcers on tongue HEENT: PERRLA, sclera anicteric Neck: no nodes, no JVD, supple, full ROM Respiratory: no wheezing, no rales, no rhonchi, clear to auscultation bilateral II/ ARIELA RUSB Cardiovascular: RRR, no rub, gallop Gastrointestinal: soft, non-tender, no distention, positive bowel sounds Decreased edema and erythema of bilat LE's venous stasis changes bilat LE's Musculoskeletal: pulses present Neurological: normal sensation, moves all 4 limbs Psychiatric: normal affect, A&O x 3 Skin: normal turgor, cap refill <2 seconds Dx/Plan (1) Cellulitis of lower extremity Code(s): L03.119 - CELLULITIS OF UNSPECIFIED PART OF LIMB Status: Acute Comment: Slow improvement, continue Vancomycin and Rocephin another 24h then de- escalate (2) ANUM (acute kidney injury) Code(s): N17.9 - ACUTE KIDNEY FAILURE, UNSPECIFIED Status: Acute Comment: Improved, avoid nephrotoxic meds and limit contrast exposure, serial monitoring (3) CKD (chronic kidney disease), stage III Code(s): N18.3 - CHRONIC KIDNEY DISEASE, STAGE 3 (MODERATE) Status: Chronic Comment: See above (4) Hypokalemia Code(s): E87.6 - HYPOKALEMIA Status: Acute Comment: Resolving, (5) Diabetes type 2, controlled Code(s): E11.9 - TYPE 2 DIABETES MELLITUS WITHOUT COMPLICATIONS Status: Chronic Qualifiers: Diabetes mellitus skilled nursing insulin use: with termite treater helper use Diabetes mellitus complication detail: with chronic kidney disease Chronic kidney disease stage: stage 3 (moderate) Comment: ISS, ADA (6) Fall Code(s): W19.XXXA - UNSPECIFIED FALL, INITIAL ENCOUNTER Status: Acute Comment: PT for functional assessment, RW with SBA (7) E. coli UTI Code(s): N39.0 - URINARY TRACT INFECTION, SITE NOT SPECIFIED; B96.20 - UNSP ESCHERICHIA COLI THE CAUSE OF DISEASES CLASSD ELSWHR Status: Suspected Comment: Continue current Rocephin 2gm IV daily, de-escalate to po abx in 24h - Plan continue antibiotics, PT/OT, social media content specialist, out of bed/ambulate Stable overall -: Trial Magic Mouthwash prn -: De-escalate IV abx coverage in 24h -: OOB/ambulat with PT -: Likely home in 24-48h * .
[2018-02-09] MEDS: Aluminum & Magnesium Hydroxide 60 ML, Lidocaine 2% Viscous Solution 30 ML, diphenhydrAM... SSW PRN (19:40)
[2018-02-09] MEDS: cefTRIAXone\\ROCEPHIN 2 GM in Sodium Chloride 0.9% 100 ML IVPB SCH (19:53)
[2018-02-09] MEDS: Atorvastatin Calcium 10 MG TAB PO SCH (20:20)
[2018-02-09] MEDS: Lorazepam 0.5 MG TAB PO SCH (20:21)
[2018-02-09] MEDS ORDERED: Furosemide 40 MG/4 ML VIAL SLOW IVP SCH (20:30)
[2018-02-09] MEDS ORDERED: Potassium Chloride 20 MEQ TAB PO SCH (20:30)
[2018-02-09] MEDS ORDERED: Metolazone 5 MG TAB PO SCH (20:30)
--- NOTE | 2018-02-09 20:44 | PRG ---
DATE OF SERVICE: 02/09/2018 SUBJECTIVE: Ms. Ivory states she is still not breathing as well as she thinks she should be as well as she is likely to be. PHYSICAL EXAMINATION: VITAL SIGNS: Blood pressure 141/67, pulse 74 regular. LUNGS: Clear. CARDIAC: Normal S1, normal S2. There is aortic stenosis murmur. ABDOMEN: Soft, nontender. EXTREMITIES: Still moderate edema. LABORATORY DATA: Creatinine is 0.97. I and O -14.85 mL put out 3 liters last night. ASSESSMENT: 1. Congestive heart failure, diastolic, still short of breath. 2. Aortic stenosis, moderate to severe. PLAN: We will get some extra dose of furosemide tonight along with metolazone.
[2018-02-10] MEDS: Fentanyl 100 MCG/2 ML VIAL SLOW IVP PRN ×5 (02:39→21:05)
[2018-02-10] MEDS: Levothyroxine 150 MCG TAB PO SCH (05:45)
[2018-02-10] MEDS: Furosemide 40 MG/4 ML VIAL SLOW IVP SCH ×2 (05:45→13:34)
[2018-02-10] MEDS: HumaLOG 300 UNITS/3 ML VIAL SC PRN ×3 (05:53→15:59)
[2018-02-10] MEDS: Aluminum & Magnesium Hydroxide 60 ML, Lidocaine 2% Viscous Solution 30 ML, diphenhydrAM... SSW PRN ×3 (05:54→20:53)
[2018-02-10] MEDS: traMADol HCl 50 MG TAB PO PRN ×3 (06:14→19:52)
[2018-02-10 07:00] LABS: Anion Gap 14 mmol/L (10-20); BUN (Urea Nitrogen) 28 mg/dL (9.8-20.1); Calc. Creatinine Clearance 51 mL/min (70-130); Calcium 9.6 mg/dL (7.8-10.44); Carbon Dioxide 32 mmol/L (23-31); Chloride 100 mmol/L (98-107); Estimated GFR-MDRD 47; Glucose 221 mg/dL (83-110); Potassium 4.6 mmol/L (3.5-5.1); Sodium 141 mmol/L (136-145)
[2018-02-10] MEDS: Heparin 5,000 UNITS/ML VIAL SC SCH ×2 (08:30→21:07)
[2018-02-10] MEDS: Nystatin 500,000 UNITS/5 ML UDCUP SSW SCH ×4 (08:30→21:09)
[2018-02-10] MEDS: Amiodarone 200 MG TAB PO SCH (08:31)
[2018-02-10] MEDS: Potassium Chloride 20 MEQ TAB PO SCH ×2 (08:31→16:43)
[2018-02-10] MEDS: predniSONE 20 MG TAB PO SCH (08:31)
[2018-02-10] MEDS: Gabapentin 300 MG CAP PO SCH ×3 (08:32→21:01)
[2018-02-10] MEDS: Carvedilol 3.125 MG TAB PO SCH ×2 (08:32→21:01)
[2018-02-10] MEDS: Aspirin 325 MG TAB PO SCH (08:32)
--- NOTE | 2018-02-10 08:37 | PRG ---
DATE OF SERVICE: 02/10/2018 Ms. Ivory is feeling better. Her breathing is substantially improved today. PHYSICAL EXAMINATION: VITAL SIGNS: Blood pressure 141/67, pulse 74, it is regular. LUNGS: Clear. CARDIAC: Normal S1, normal S2 with aortic stenosis murmur. ABDOMEN: Soft, nontender. EXTREMITIES: There is moderate edema, but it is improving. LABORATORY: Creatinine is slightly elevated 1.11, slightly higher than before. I&O, the patient was negative noted at 1.5 liters yesterday. ASSESSMENT: 1. Congestive heart failure, diastolic, improving. 2. Aortic stenosis becoming more severe. 3. Venous insufficiency with reflux. PLAN: 1. Continue diuretics. 2. Consider outpatient ablation of the veins on the lower extremity to help with peripheral edema. 3. Ultimately, will need to consider transcutaneous aortic valve replacement. The patient would be a poor candidate for open heart surgery.
[2018-02-10] MEDS: Isosorbide Mononitrate 20 MG TAB PO SCH ×2 (08:46→21:01)
[2018-02-10] MEDS: Lidocaine Viscous Sol 2% 15 ml UD Cup SSP SCH ×3 (08:48→16:43)
[2018-02-10] MEDS: Mupirocin 2% Ointment 22 GM Tube TOP SCH ×3 (08:50→21:04)
[2018-02-10] MEDS: Acetaminophen 500 MG TAB PO PRN ×2 (13:34→19:52)
[2018-02-10 14:18] VITALS: BMI 30.9
--- NOTE | 2018-02-10 14:35 | PDOC.PN ---
- Subjective Encounter Start Date: 02/10/18 Encounter Start Time: 14:30 Subjective: f/u for LE cellulitis on Rocephin and Vancomycin. Overall doing better. -: Working with PT for ambulation. Mouth sores improved with Magic Mouthwash - Objective Resuscitation Status: Resuscitation Status FULL:Full Resuscitation MAR Reviewed: Yes Vital Signs & Weight: Vital Signs (12 hours) Temp Pulse Resp BP Pulse Ox 02/10/18 13:40 130/60 02/10/18 08:00 98.0 F 74 20 95 Weight Admit Weight 164 lb 14.48 oz Weight 180 lb 9.6 oz I&O: 02/09/18 02/10/18 02/11/18 06:59 06:59 06:59 Intake Total 1989.5 1894 Output Total 3475 3450 Balance -1485.5 -1556 Result Diagrams: 02/07/18 04:38 02/10/18 05:42 Additional Labs: Accuchecks 02/10/18 02/10/18 02/09/18 11:40 05:51 20:48 POC Glucose 302 H 200 H 234 H 02/09/18 16:33 POC Glucose 333 H Phys Exam - Physical Examination Constitutional: NAD aphthous ulcers on tongue HEENT: PERRLA, sclera anicteric Neck: no nodes, no JVD, supple, full ROM Respiratory: no wheezing, no rales, no rhonchi, clear to auscultation bilateral II/ ARIELA RUSB S1, S2 Cardiovascular: RRR, no rub, gallop Gastrointestinal: soft, non-tender, no distention, positive bowel sounds decreased edema and erythema to bilat LE's Musculoskeletal: pulses present Neurological: non-focal, normal sensation, moves all 4 limbs Psychiatric: normal affect, A&O x 3 Deviation from normal: LE venous stasis changes Skin: normal turgor, cap refill <2 seconds Dx/Plan (1) Cellulitis of lower extremity Code(s): L03.119 - CELLULITIS OF UNSPECIFIED PART OF LIMB Status: Acute Comment: Improved, d/c Rocephin and Vancomycin, start Augmentin 875mg BID (2) ANUM (acute kidney injury) Code(s): N17.9 - ACUTE KIDNEY FAILURE, UNSPECIFIED Status: Acute Comment: Improved, avoid nephrotoxic meds and limit contrast exposure, serial monitoring (3) CKD (chronic kidney disease), stage III Code(s): N18.3 - CHRONIC KIDNEY DISEASE, STAGE 3 (MODERATE) Status: Chronic Comment: See above (4) Hypokalemia Code(s): E87.6 - HYPOKALEMIA Status: Acute Comment: Resolving, (5) Diabetes type 2, controlled Code(s): E11.9 - TYPE 2 DIABETES MELLITUS WITHOUT COMPLICATIONS Status: Chronic Qualifiers: Diabetes mellitus nursing home insulin use: with nursing home use Diabetes mellitus complication detail: with chronic kidney disease Chronic kidney disease stage: stage 3 (moderate) Comment: ISS, ADA (6) Fall Code(s): W19.XXXA - UNSPECIFIED FALL, INITIAL ENCOUNTER Status: Acute Comment: PT for functional assessment, RW with SBA (7) E. coli UTI Code(s): N39.0 - URINARY TRACT INFECTION, SITE NOT SPECIFIED; B96.20 - UNSP ESCHERICHIA COLI THE CAUSE OF DISEASES CLASSD ELSWHR Status: Suspected Comment: d/c Rocephin, start Augmentin 875mg BID - Plan continue antibiotics, PT/OT, social work msw, out of bed/ambulate Stable overall -: D/C Vanomycin and Rocephin -: Start Augmentin 875mg BID -: OOB/ambulate with PT -: Magic Mouthwash daily/prn * Likely home in 24-48h
[2018-02-10 15:59] LABS: Vancomycin, Trough 15.5 ug/mL
[2018-02-10] MEDS: Vancomycin HCl 1.5 GM in Sodium Chloride 0.9% 250 ML 300 ML IVPB SCH (16:03)
[2018-02-10] MEDS: Lorazepam 0.5 MG TAB PO SCH (21:01)
[2018-02-10] MEDS: Atorvastatin Calcium 10 MG TAB PO SCH (21:01)
[2018-02-10] MEDS: Amoxicillin/Potassium Clav 875 MG TAB PO SCH (21:02)
[2018-02-11] MEDS: Fentanyl 100 MCG/2 ML VIAL SLOW IVP PRN ×5 (05:45→23:02)
[2018-02-11] MEDS: Levothyroxine 150 MCG TAB PO SCH (05:48)
[2018-02-11] MEDS: Furosemide 40 MG/4 ML VIAL SLOW IVP SCH ×2 (05:48→13:05)
[2018-02-11] MEDS: Ondansetron HCl/PF 4 MG/2 ML Vial IVP PRN (05:51)
[2018-02-11] MEDS: HumaLOG 300 UNITS/3 ML VIAL SC PRN ×3 (05:55→17:02)
[2018-02-11] MEDS: Aluminum & Magnesium Hydroxide 60 ML, Lidocaine 2% Viscous Solution 30 ML, diphenhydrAM... SSW PRN ×3 (08:55→17:02)
[2018-02-11] MEDS: Lidocaine Viscous Sol 2% 15 ml UD Cup SSP SCH ×3 (08:56→17:02)
[2018-02-11] MEDS: Nystatin 500,000 UNITS/5 ML UDCUP SSW SCH ×4 (08:56→21:48)
[2018-02-11] MEDS: Gabapentin 300 MG CAP PO SCH ×3 (08:57→21:45)
[2018-02-11] MEDS: Amoxicillin/Potassium Clav 875 MG TAB PO SCH ×2 (08:57→21:47)
[2018-02-11] MEDS: Aspirin 325 MG TAB PO SCH (08:57)
[2018-02-11] MEDS: predniSONE 20 MG TAB PO SCH (08:57)
[2018-02-11] MEDS: Heparin 5,000 UNITS/ML VIAL SC SCH ×2 (08:57→21:47)
[2018-02-11] MEDS: Mupirocin 2% Ointment 22 GM Tube TOP SCH ×3 (08:58→21:48)
[2018-02-11] MEDS: Carvedilol 3.125 MG TAB PO SCH ×2 (08:58→21:46)
[2018-02-11] MEDS: Acetaminophen 500 MG TAB PO PRN ×3 (08:58→21:40)
[2018-02-11] MEDS: Amiodarone 200 MG TAB PO SCH (08:58)
[2018-02-11] MEDS: Potassium Chloride 20 MEQ TAB PO SCH ×2 (08:58→17:02)
[2018-02-11] MEDS: traMADol HCl 50 MG TAB PO PRN ×3 (08:59→21:40)
[2018-02-11] MEDS: Isosorbide Mononitrate 20 MG TAB PO SCH ×2 (11:51→21:46)
--- NOTE | 2018-02-11 12:35 | ULT ---
BILATERAL LOWER EXTREMITY VENOUS DOPPLER ULTRASOUND: HISTORY: Bilateral lower extremity edema, right greater than left. TECHNIQUE: Frazier scale ultrasound of the deep venous system of both the lower extremities was performed with atte mpted compression, augmentation, and spectral and Doppler evaluation. FINDINGS: The patient refused compression use in the majority of the right lower extremity. Also, unable to pe rform satisfactory augmentation due to patient's pain. There is good flow in the deep veins of the lower extremities without definite evidence of intralumin al thrombus in the right lower extremity. In the deep veins of the left lower extremity, there is good flow, compression, and augmentation in t he deep veins of the left lower extremity including the left common femoral, femoral, deep femoral, p opliteal, posterior tibial, and greater saphenous veins. IMPRESSION: 1. No evidence of deep vein thrombosis in the left lower extremity. 2. No definite evidence of deep vein thrombosis in the right lower extremity. Exam was limited as d iscussed above. POS: [facility]
--- NOTE | 2018-02-11 12:37 | ULT ---
NONVASCULAR SOFT TISSUE ULTRASOUND OF THE LOWER EXTREMITIES BILATERALLY: History: Bilateral lower extremity weakness and edema. FINDINGS/IMPRESSION: Edematous changes are seen in the soft tissues of the lower extremities on either side. There is a 2. 3 x 1.3 x 1 cm cystic area in the medial aspect of the left lower leg. This is finding is avascular a nd may represent an abscess. POS: [facility]
--- NOTE | 2018-02-11 14:46 | PDOC.PN ---
- Subjective Encounter Start Date: 02/11/18 Encounter Start Time: 14:30 Subjective: f/u LE cellulitis transitioned to Augmentin. Some soreness of RLE and -: concern for more redness. No fever or chills. Ambulated 180ft. - Objective Resuscitation Status: Resuscitation Status FULL:Full Resuscitation MAR Reviewed: Yes Vital Signs & Weight: Vital Signs (12 hours) Temp Pulse Resp BP Pulse Ox 02/11/18 07:59 96.0 F L 79 18 144/69 H 96 Weight Admit Weight 164 lb 14.48 oz Weight 180 lb 9.6 oz I&O: 02/10/18 02/11/18 02/12/18 06:59 06:59 06:59 Intake Total 1894 1800 Output Total 3450 3300 Balance -1556 -1500 Result Diagrams: 02/07/18 04:38 02/10/18 05:42 Additional Labs: Accuchecks 02/11/18 02/11/18 02/10/18 12:18 05:40 20:50 POC Glucose 242 H 192 H 202 H 02/10/18 15:53 POC Glucose 242 H Radiology Reviewed by me: Yes (Bilat LE venous dopp - neg; soft tissue LE sono - no acute process) Phys Exam - Physical Examination Constitutional: NAD HEENT: PERRLA, sclera anicteric Neck: no nodes, no JVD, supple, full ROM Respiratory: no wheezing, no rales, no rhonchi, clear to auscultation bilateral + murmur Cardiovascular: RRR, no rub, gallop Gastrointestinal: soft, non-tender, no distention, positive bowel sounds RLE erythema and chronic venous stasis changes, N/V intact distally Musculoskeletal: pulses present, edema present Neurological: normal sensation, moves all 4 limbs Psychiatric: normal affect, A&O x 3 Skin: normal turgor, cap refill <2 seconds Deviation from normal: Lea with clear urine Dx/Plan (1) Cellulitis of lower extremity Code(s): L03.119 - CELLULITIS OF UNSPECIFIED PART OF LIMB Status: Acute Comment: Improved, Vancomycin another 24h, start Augmentin 875mg BID (2) ANUM (acute kidney injury) Code(s): N17.9 - ACUTE KIDNEY FAILURE, UNSPECIFIED Status: Acute Comment: Improved, avoid nephrotoxic meds and limit contrast exposure, serial monitoring (3) CKD (chronic kidney disease), stage III Code(s): N18.3 - CHRONIC KIDNEY DISEASE, STAGE 3 (MODERATE) Status: Chronic Comment: See above (4) Hypokalemia Code(s): E87.6 - HYPOKALEMIA Status: Acute Comment: Resolving, (5) Diabetes type 2, controlled Code(s): E11.9 - TYPE 2 DIABETES MELLITUS WITHOUT COMPLICATIONS Status: Chronic Qualifiers: Diabetes mellitus rodent exterminator insulin use: with custodial use Diabetes mellitus complication detail: with chronic kidney disease Chronic kidney disease stage: stage 3 (moderate) Comment: ISS, ADA (6) Fall Code(s): W19.XXXA - UNSPECIFIED FALL, INITIAL ENCOUNTER Status: Acute Comment: PT for functional assessment, RW with SBA (7) E. coli UTI Code(s): N39.0 - URINARY TRACT INFECTION, SITE NOT SPECIFIED; B96.20 - UNSP ESCHERICHIA COLI THE CAUSE OF DISEASES CLASSD ELSWHR Status: Suspected Comment: d/c Rocephin, start Augmentin 875mg BID - Plan continue antibiotics, PT/OT, social service assistant, out of bed/ambulate Stable overall -: Continue Vancomycin another 24h -: Continue Augmentin 875mg BID -: OOB/ambulate -: WCT for local care LE's * AM lab: BMP * Likely home in 24h
[2018-02-11] MEDS: Vancomycin HCl 1.5 GM in Sodium Chloride 0.9% 250 ML 300 ML IVPB SCH (17:03)
[2018-02-11] MEDS: Nitroglycerin 0.4 MG TAB (25 Tab Bottle) SL PRN (21:38)
[2018-02-11] MEDS: Lorazepam 0.5 MG TAB PO SCH (21:41)
[2018-02-11] MEDS: Atorvastatin Calcium 10 MG TAB PO SCH (21:46)
[2018-02-12] MEDS: Fentanyl 100 MCG/2 ML VIAL SLOW IVP PRN ×3 (00:30→16:02)
[2018-02-12 00:41] VITALS: BP 145/66
[2018-02-12] MEDS: Acetaminophen 500 MG TAB PO PRN ×2 (04:57→12:07)
[2018-02-12] MEDS: traMADol HCl 50 MG TAB PO PRN ×2 (04:58→12:06)
[2018-02-12] MEDS: Levothyroxine 150 MCG TAB PO SCH (04:58)
[2018-02-12] MEDS: Ondansetron HCl/PF 4 MG/2 ML Vial IVP PRN (04:59)
[2018-02-12] MEDS: Furosemide 40 MG/4 ML VIAL SLOW IVP SCH ×2 (04:59→13:59)
[2018-02-12 05:46] LABS: Anion Gap 15 mmol/L (10-20); BUN (Urea Nitrogen) 36 mg/dL (9.8-20.1); Calc. Creatinine Clearance 50 mL/min (70-130); Calcium 9.4 mg/dL (7.8-10.44); Carbon Dioxide 28 mmol/L (23-31); Chloride 101 mmol/L (98-107); Estimated GFR-MDRD 47; Glucose 237 mg/dL (83-110); Potassium 4.8 mmol/L (3.5-5.1); Sodium 139 mmol/L (136-145)
[2018-02-12] MEDS: HumaLOG 300 UNITS/3 ML VIAL SC PRN ×3 (06:02→16:19)
[2018-02-12] MEDS: Lidocaine Viscous Sol 2% 15 ml UD Cup SSP SCH ×3 (09:20→16:03)
[2018-02-12] MEDS: Nystatin 500,000 UNITS/5 ML UDCUP SSW SCH ×3 (09:22→16:03)
[2018-02-12] MEDS: Heparin 5,000 UNITS/ML VIAL SC SCH (09:30)
[2018-02-12] MEDS: Gabapentin 300 MG CAP PO SCH ×2 (09:34→13:59)
[2018-02-12] MEDS: Isosorbide Mononitrate 20 MG TAB PO SCH (09:34)
[2018-02-12] MEDS: Aspirin 325 MG TAB PO SCH (09:34)
[2018-02-12] MEDS: Amoxicillin/Potassium Clav 875 MG TAB PO SCH (09:34)
[2018-02-12] MEDS: Amiodarone 200 MG TAB PO SCH (09:35)
[2018-02-12] MEDS: Carvedilol 3.125 MG TAB PO SCH (09:35)
[2018-02-12] MEDS: Potassium Chloride 20 MEQ TAB PO SCH ×2 (09:35→16:04)
[2018-02-12] MEDS: predniSONE 20 MG TAB PO SCH (09:35)
[2018-02-12] MEDS: Mupirocin 2% Ointment 22 GM Tube TOP SCH ×2 (09:36→14:01)
[2018-02-12] MEDS: Aluminum & Magnesium Hydroxide 60 ML, Lidocaine 2% Viscous Solution 30 ML, diphenhydrAM... SSW PRN (09:44)
[2018-02-12 11:57] VITALS: TEMP 98.2
[2018-02-12] MEDS: Vancomycin HCl 1.5 GM in Sodium Chloride 0.9% 250 ML 300 ML IVPB SCH (16:03)
--- NOTE | 2018-02-12 22:04 | DIS ---
DATE OF ADMISSION: 02/04/2018 DATE OF DISCHARGE: 02/12/2018 DISCHARGE DIAGNOSES: 1. Bilateral lower extremity cellulitis, improved. 2. Acute kidney injury on chronic kidney disease, stage 3. 3. Hypokalemia, resolved. 4. Diabetes mellitus type 2, insulin requiring. 5. Status post mechanical fall. 6. Escherichia coli urinary tract infection, resolved. 7. Chronic venous insufficiency with stasis dermatitis. 8. Severe aortic stenosis. CONSULTATIONS: Dr. Lynch with Cardiology Service. PERTINENT LABORATORY AND X-RAY FINDINGS: Potassium ranged between 2.7-4.8. Creatinine ranged betwee n 0.83-2.47. Estimated GFR ranged between 19-66. Lactic acid level ranged between 1.1-2.1. CBC pete wed a white blood cell count ranging between 6.0-20.0. Hemoglobin ranged between 10.4-13.9. Blood c ultures x2 from 02/04/2018 showed no growth at 5 days. Left buttock skin culture dated 02/04/2018 sh owed Proteus, Enterococcus, and presumptive Pseudomonas species. Urine culture dated 02/04/2018 show ed 10-25,000 colonies of E. coli, pansensitive. Portable chest x-ray dated 02/04/2018 showed promine nt bronchovascular markings bilaterally. No acute process identified. A 2D transthoracic echocardio gram dated 02/07/2018 showed ejection fraction of 55%-60%. [id number] left atrial enlargemen t. Severe aortic stenosis with peak gradient of 62 mmHg. Aortic valve area of 1.04 sq. cm. Bilater al lower extremity ultrasound dated 02/11/2018 showed edematous changes bilaterally. A 2.3 x 1.3 cm cystic area in the medial aspect of the left lower leg. Venous Doppler studies of bilateral lower ex tremities dated 02/11/2018 showed no evidence for DVT. HOSPITAL COURSE: Patient was admitted to the medical floor after initially presenting with increasin g lower extremity erythema and cellulitis in the context of chronic venous stasis dermatitis and insu fficiency. The patient was placed on IV vancomycin with additional Rocephin and monitored for clinic al response. The patient did receive local wound care to the lower extremities throughout the hospit al course and underwent venous Doppler evaluation ruling out evidence for deep venous thrombosis. Th e patient was also noted with mild acute kidney injury in the context of chronic kidney disease stage 3. Initially given low volume intravenous normal saline. Overall, creatinine had improved with vol ume replacement. The patient also received potassium supplementation after mild hypokalemia was note d. The patient did develop atypical chest pain during her hospital course and evaluated by the [facility]. The patient underwent a 2D transthoracic echocardiogram showing a severe aortic steno sis with calculated aortic valve area of 1.04 sq. cm. The patient was placed on diuretic therapy and monitored for clinical response. The patient overall clinically stabilized with diuretic therapy an d potassium supplementation in addition. The patient was slow to clinically improve, however, was ab le to achieve baseline functional status and ambulated with the use of a rolling walker and physical therapy for standby assistance. Overall, patient remained clinically stable through the hospital cou rse. I have examined the patient at time of discharge and discussed pertinent laboratory findings as well as followup instructions. The patient verbalizes understanding and agreement, and ready for di scharge on 02/12/2018. DISCHARGE MEDICATIONS: 1. Amiodarone 200 mg 1 tab p.o. daily. 2. Augmentin 875 mg p.o. b.i.d. x10 days. 3. Enteric-coated aspirin 81 mg 1 tab p.o. daily. 4. Lipitor 10 mg p.o. at bedtime. 5. Vitamin D3 at 5000 units p.o. daily. 6. Gabapentin 600 mg p.o. t.i.d. 7. Humalog 75/25, 45 units subcutaneously q.a.m. 8. Humalog b.i.d. with meals p.r.n. sliding scale. 9. Levothyroxine 150 mcg p.o. daily. 10. Viscous lidocaine 2%, 15 mL swish and spit q.3 hours p.r.n. 11. Lorazepam 0.5 mg p.o. at bedtime. 12. Amitiza 24 mcg p.o. b.i.d. 13. Metolazone 5 mg p.o. Wednesday, Wednesday, and Wednesday. 14. Omeprazole 40 mg p.o. daily. 15. Zofran 4 mg p.o. q.8 hours p.r.n. 16. Potassium chloride 20 mEq p.o. daily. 17. Prednisone 10 mg p.o. daily. 18. Demadex 20 mg p.o. b.i.d. FOLLOWUP: The patient will follow up with her primary care provider, Dr. Robi Dillon within 7 days o f discharge. The patient will follow up with Dr. Sigala with Nephrology Service and to call his office for appointment time and date. The patient will follow up with Dr. Seth Lynch within 10 days of discharge. CONDITION ON DISCHARGE: Fair. ACTIVITY: Ad kelton. Rolling walker for ambulation. SPECIAL INSTRUCTIONS: Home health services with local wound care to the bilateral lower extremities and left buttock. DIET: ADA. CODE STATUS: FULL. DISPOSITION: Home with [facility], 02/12/2018. Total time preparing and coordinating discharge is 35 minutes.
--- NOTE | 2018-02-14 13:42 | PQF ---
DAVID JIMENEZROSALBA DO [id number] CLINICAL DOCUMENTATION CLARIFICATION FORM: POST DISCHARGE Addendum to original discharge summary date: ____ Late entry note date: __ Your assistance is needed to assign the appropriate diagnosis code for Congestive Heart Fialure. Cardiology consultation mentions Acute on Chronic Diastolic Congestive Heart Failure, However this diagnosis is not included in your d/c summary. Please, confirm or deny the diagnosis acutiy of the Congestive Heart Failure. Please exercise your independent, professional judgment in responding to the clarification form. Clinical indicators are provided on the bottom of this form for your review Please check appropriate box(s): DIASTOLIC HEART FAILURE: B. ACUITY [ ] Acute (include is present on admission) [ ] Acute on Chronic (include if exacerbation was present on admission [ ] Chronic [ x ] Other diagnosis __Severe Aortic Stenosis [ ] Unable to determine In addition, please specify: Present on Admission (POA): [ x ] Yes [ ] No [ ] Unable to determine For continuity of documentation, please document condition throughout progress notes and discharge summary. Thank You. CLINICAL INDICATORS - SIGNS / SYMPTOMS / LABS Ejection Fraction = 55-60 % chest pain Peripheral edema RISKS: History of CAD CKD Hypertension TREATMENTS: echocardiogram IV diuretics (This form is maintained as a part of the permanent medical record) 2014 [employer] All Rights Reserved David [email or web address] [phone] PATTI
== END 2018-02-12 18:30 | disposition home health service (06) | DRG 683 ==
LOC: ERS 10:22 → T4-B 13:16 → 2NO 02-06 16:51 → ONC 02-08 16:03
PROVIDERS: ADMIT Family Medicine; ATTEND Family Medicine
DX: N17.9 Acute kidney failure, unspecified (principal); L03.115 Cellulitis of right lower limb; N39.0 Urinary tract infection, site not specified; I13.0 Hypertensive heart and chronic kidney disease with heart failure and stage 1 through stage 4 chronic kidney disease, or unspecified chronic kidney disease; I50.32 Chronic diastolic (congestive) heart failure; L03.116 Cellulitis of left lower limb; I35.0 Nonrheumatic aortic (valve) stenosis; L89.321 Pressure ulcer of left buttock, stage 1; L89.152 Pressure ulcer of sacral region, stage 2; L89.892 Pressure ulcer of other site, stage 2; I48.0 Paroxysmal atrial fibrillation; I87.2 Venous insufficiency (chronic) (peripheral); E66.01 Morbid (severe) obesity due to excess calories; E87.6 Hypokalemia; E78.5 Hyperlipidemia, unspecified; I25.10 Atherosclerotic heart disease of native coronary artery without angina pectoris; B96.20 Unspecified Escherichia coli [E. coli] as the cause of diseases classified elsewhere; E11.649 Type 2 diabetes mellitus with hypoglycemia without coma; K21.9 Gastro-esophageal reflux disease without esophagitis; M10.9 Gout, unspecified; G89.29 Other chronic pain; M54.9 Dorsalgia, unspecified; B96.4 Proteus (mirabilis) (morganii) as the cause of diseases classified elsewhere; B96.5 Pseudomonas (aeruginosa) (mallei) (pseudomallei) as the cause of diseases classified elsewhere; B95.2 Enterococcus as the cause of diseases classified elsewhere; K12.1 Other forms of stomatitis; S80.812A Abrasion, left lower leg, initial encounter; S80.811A Abrasion, right lower leg, initial encounter; W18.39XA Other fall on same level, initial encounter; E11.22 Type 2 diabetes mellitus with diabetic chronic kidney disease; N18.3 Chronic kidney disease, stage 3 (moderate); Z88.5 Allergy status to narcotic agent; Z95.5 Presence of coronary angioplasty implant and graft; Z91.81 History of falling; Z87.39 Personal history of other diseases of the musculoskeletal system and connective tissue; Z90.49 Acquired absence of other specified parts of digestive tract; Z90.710 Acquired absence of both cervix and uterus; Z89.422 Acquired absence of other left toe(s); Z79.82 Long term (current) use of aspirin; Z79.4 Long term (current) use of insulin; Z79.52 Long term (current) use of systemic steroids; Z79.899 Other long term (current) drug therapy
CPT/HCPCS: 36415; 36416; 51701; 71045; 76882; 80048; 80053; 80202; 81003; 81015; 83605; 84484; 85007; 85025; 85027; 87040; 87070; 87077; 87086; 87186; 87205; 93005; 93010; 93306; 93970; 94640; 96365; 96366; 96367; 96375; 96376; A4216; A4353; G8978-GP-CK; G8979-GP-CJ; J0360; J0696; J1644; J1720; J1940; J2270; J2405; J2543; J2550; J3010; J3370; J3480; J3490; J7050; J7506; J7620; Q0162

== ENCOUNTER 2018-02-24 11:06 | Inpatient (IN) | payer MEDICARE, BC ==
[2018-02-24 12:44] LABS: #Lymphocytes 0.8 thou/uL (1.20-3.40); #Monocytes 0.8 thou/uL (0.11-0.59); #Neutrophils 12.3 thou/uL (1.40-6.50); %Basophils 0.2 % (0.0-1.0); %Eosinophils 0.1 % (0.0-10.0); %Lymphocytes 5.6 % (21.0-51.0); %Monocytes 5.8 % (0.0-10.0); %Neutrophils 88.3 % (42.0-75.0); Hemoglobin 12.8 g/dL (12.0-16.0); Mean Corpuscular HGB CONC 31.7 g/dL (32.0-36.0); Mean Corpuscular Hemoglobin 29.2 pg (27.0-31.0); Mean Corpuscular Volume 92.2 fL (78.0-98.0); Mean Platelet Volume 6.4 fL (7.4-10.4); Platelet Count 300 thou/uL (130-400); RBC Distribution Width 14.7 % (11.5-14.5); White Blood Cell (WBC) Count 13.9 thou/uL (4.8-10.8)
[2018-02-24 13:09] LABS: ALT (SGPT) 11 U/L (8-55); AST (SGOT) 18 U/L (5-34); Albumin 3.9 g/dL (3.4-4.8); Alkaline Phosphatase 89 U/L (40-150); Anion Gap 17 mmol/L (10-20); BUN (Urea Nitrogen) 78 mg/dL (9.8-20.1); Bilirubin, Total 0.8 mg/dL (0.2-1.2); Calc. Creatinine Clearance 0 mL/min (70-130); Calcium 10.1 mg/dL (7.8-10.44); Carbon Dioxide 31 mmol/L (23-31); Chloride 89 mmol/L (98-107); Estimated GFR-MDRD 27; Globulin 3.3 g/dL (2.4-3.5); Glucose 233 mg/dL (83-110); Protein, Total 7.2 g/dL (6.0-8.3); Sodium 134 mmol/L (136-145)
[2018-02-24 13:11] LABS: Potassium 2.6 mmol/L (3.5-5.1)
[2018-02-24] MEDS ORDERED: Potassium Chloride 20 MEQ TAB ONE (13:25)
[2018-02-24] MEDS ORDERED: Ondansetron ODT 8 MG TAB ONE (13:26)
[2018-02-24] MEDS ORDERED: Potassium Chloride 20 MEQ in Premix Bag 1 BAG IVPB SCH (13:30)
[2018-02-24 13:50] LABS: Bilirubin Negative (Negative); Blood, Urine Negative (Negative); Clarity CLEAR (Clear); Glucose, Urine (Dipstick) Negative (Negative); Leukocyte Trace (Negative); Nitrite Negative (Negative); Protein, Urine (Dipstick) Negative (Neg-Trace); Specific Gravity, Urine 1.008 (1.002-1.036); Urobilinogen 0.2 mg/dL (0.2-1.0)
[2018-02-24 13:52] LABS: Bacteria/HPF None Seen HPF (None Seen); Hyaline Casts/LPF 0-3 HYALINE CAST LPF (0-3 Hyaline); RBC/HPF 0-3 HPF (0-3); Squamous Epithelial None Seen HPF (0-3); WBC/HPF 0-3 HPF (0-3)
[2018-02-24] MEDS ORDERED: traMADol HCl 50 MG TAB ONE (15:05)
[2018-02-24] MEDS ORDERED: Acetaminophen 500 MG TAB ONE (15:06)
--- NOTE | 2018-02-24 15:32 | HP ---
PRIMARY CARE PHYSICIAN: Dr. Robi Dillon. REASON FOR ADMISSION: Right lower extremity cellulitis, hypoglycemia. HISTORY OF PRESENT ILLNESS: This is an 82-year-old female who [facility]. Patient's fingerstick blood glucose was 36 and that is why paramedics were called and patient w as brought to emergency room. Patient has diabetes type 2, insulin requiring and she did not eat wel l last night. 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 The patient reports that her pain in the rig ht lower extremity gotten worse. She describes 10/10 intensity pain which is sharp and shooting. Sh e reports that her erythema and swelling in her right leg has gotten more worse compared to when she was discharged from the hospital. This patient was recently admitted in our hospital on 02/04/2018. At that time, patient had ultrasou nd of the lower extremity which was negative for any DVT. Patient also had arterial Doppler study. Patient has underlying severe aortic stenosis. Today in the emergency room, patient was found with h ypokalemia, lactic acidosis. The patient is being admitted to hospital again for hypoglycemia and ce llulitis. The patient denies any fever or chills. She denies any UTI symptoms. She does report chronic left s houlder pain. She denies any constipation, diarrhea, melena or hematochezia. She denies any orthopn ea or PND. She was hemodynamically stable in the emergency room and saturating normal on room air. REVIEW OF SYSTEMS: The following complete review of systems was negative, unless otherwise mentioned in the HPI or below: Constitutional: Weight loss or gain, ability to conduct usual activities. Skin: Rash, itching. Eyes: Double vision, pain. ENT/Mouth: Nose bleeding, neck stiffness, pain, tenderness. Cardiovascular: Palpitations, dyspnea on exertion, orthopnea. Respiratory: Shortness of breath, wheezing, cough, hemoptysis, fever or night sweats. Gastrointestinal: Poor appetite, abdominal pain, heartburn, nausea, vomiting, constipation, or diarr hea. Genitourinary: Urgency, frequency, dysuria, nocturia. Musculoskeletal: Pain, swelling. Neurologic/Psychiatric: Anxiety, depression. Allergy/Immunologic: Skin rash, bleeding tendency. Please see my HPI for pertinent positive and negative. All other review of system reviewed and negat gokul except as mentioned in the HPI. PAST MEDICAL HISTORY: Chronic venous stasis dermatitis, diabetes type 2, chronic low back pain, gout , morbid obesity, hypothyroidism, hypertension, dyslipidemia, CKD stage 3, paroxysmal atrial fibrilla tion, diabetes type 2 requiring insulin, history of recurrent hypoglycemic episodes, severe aortic st enosis. PAST SURGICAL HISTORY: Cholecystectomy, amputation of multiple toes on the left foot, appendicectomy , hysterectomy, bilateral cataract surgery. ALLERGIES: HYDROCODONE. FAMILY HISTORY: No strong family history of premature coronary artery disease, stroke or cancer. SOCIAL HISTORY: Patient lives by herself. 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 No hist ory of tobacco, alcohol or illicit drug abuse. PAST PSYCHIATRIC HISTORY: Reviewed and negative. EMERGENCY ROOM COURSE: Patient is given Rocephin 1 gram, vancomycin 1 gram, potassium chloride 20 mE q IV and 40 mEq p.o., Zofran 8 mg, morphine 4 mg, IV fluid. CURRENT HOME MEDICATIONS: The patient was recently admitted in our hospital and discharged on follow ing medications. The patient does not have any medication with her at this point. Amiodarone 200 mg p.o. daily, Augmentin 875 mg twice daily, which was prescribed for 10 days, which seems like she has finished, aspirin 81 mg p.o. daily, Lipitor 10 mg p.o. at bedtime, vitamin D3 5000 units p.o. daily, gabapentin 600 mg p.o. t.i.d., Humalog insulin 45 units subcu in the morning and as per sliding scal e, Synthroid 150 mcg p.o. daily, lidocaine viscous p.r.n., lorazepam 0.5 mg p.o. at bedtime, Amitiza 24 mcg p.o. b.i.d., metolazone 5 mg p.o. Wednesday, Wednesday and Wednesday, omeprazole 40 mg p.o. daily, p otassium chloride 20 mEq p.o. daily, prednisone 10 mg p.o. daily, torsemide 20 mg p.o. b.i.d. PHYSICAL EXAMINATION: VITAL SIGNS: On arrival, blood pressure 163/66, pulse 76, respiratory rate 20, temperature 97.7, sat uration 97%, weight 74.8 kilograms. GENERAL: Patient is currently irritable, angry, hypertensive. HEAD: Normocephalic, atraumatic. EYES: Pupils round, reactive to light. Extraocular muscle intact. ENT: Oropharynx within normal limits. Moist mucous membranes. No oral lesion, no pharyngeal erythe ma, no exudate. NECK: Supple, no JVD, no thyromegaly, no carotid bruit. LUNGS: Clear to auscultation without any rales or rhonchi. CARDIAC: S1, S2 appears regular. Systolic murmur present at aortic area radiating to carotid, no ga llop, no rub. ABDOMEN: Soft, obesity present. Bowel sounds present, nontender, nondistended. No organomegaly, no mass, no suprapubic tenderness. BACK: Examination unremarkable. No CVA tenderness. EXTREMITIES: Upper extremity passive movement of all joints are normal. Lower extremity; right lowe r extremity has erythema and tenderness. Left lower extremity has chronic hyperpigmentation. NEUROLOGIC: The patient is moving all four limbs. Cranial nerves II-XII intact. Motor and sensatio n within normal limits. No cerebellar sign. Grossly nonfocal neurological examination. SKIN: The patient does have multiple old bruits on her skin. PSYCHIATRIC: Normal affect. IMAGING DATA AND SIGNIFICANT LABORATORY DATA: EKG showing frequent premature ventricular complexes, first degree AV block, left ventricular hypertrophy with repolarization changes. CBC: WBC 13.9, hem oglobin 12.8, platelet 300 with left shift. BMP: Sodium 134, potassium 2.6, chloride 89, carbon sj xide 31, anion gap 17, BUN 78, creatinine 1.81, glucose 233, calcium 10.1. LFT: AST 18, ALT 11, alk kirk phosphatase 89, albumin 3.9, lactic acid 4.7. Urinalysis, leukocyte esterase trace. ASSESSMENT AND PLAN/IMPRESSION: 1. Hypoglycemia associated with diabetes type 2, insulin requiring. Most likely related with her in adequate oral intake last night. This patient has multiple admissions for similar problem in the [facility] t. At this point, her hypoglycemia resolved with glucose is given. We will monitor in hospital for any further episode of hypoglycemia. 2. Diabetes type 2, insulin requiring. We will continue Humalog insulin as per aggressive sliding s anahi. We will hold on any scheduled insulin. We will make sure that the patient is eating her diet and insulin given to prevent hypoglycemia. Her blood sugar is already going on higher side and that is why we will use p.r.n. basis, sliding scale only for today. 3. Right lower extremity cellulitis with sepsis. The patient has stasis dermatitis. She has tender ness and warmth. I will consult Dr. Mills for his opinion regarding whether we need to continue anti biotic or not. We will start empirically Rocephin and vancomycin as per pharmacy adjusted dose and f urther decision will defer to ID team. Her ultrasound is already negative recently for deep venous t hrombosis. We will also consult Wound Care team while in the hospital for evaluation. 4. Lactic acidosis, likely due to sepsis/hypoglycemia. We will repeat lactic acid tomorrow. 5. Hypokalemia. The patient is given potassium chloride in the emergency room 40 p.o. and 20 IV. W e will check magnesium tomorrow and repeat BMP tomorrow. 6. Chronic kidney disease stage 3. Patient's renal function is pretty much stable from previous adm ission, we will monitor renal function daily. 7. Paroxysmal atrial fibrillation. Continue amiodarone 200 mg p.o. daily. The patient is not a can didate for chronic anticoagulation therapy because of fall risk. 8. Hypothyroidism. Continue Synthroid 150 mcg p.o. daily. 9. Anxiety and depression. Continue lorazepam 0.5 mg p.o. daily at bedtime. 10. Chronic diastolic heart failure. Currently, patient appears to be euvolemic. We will continue torsemide 20 mg b.i.d. and we will replace potassium 20 mEq p.o. daily. 11. Severe aortic stenosis. The patient is not a candidate for open heart surgery and she will need eventually transcutaneous aortic valve replacement. 12. Chronic low back pain and peripheral neuropathy. Continue gabapentin 600 mg p.o. t.i.d. 13. Gastroesophageal reflux disease. Continue omeprazole 40 mg p.o. daily. While in hospital, we w ill continue Protonix. 14. Dyslipidemia. Continue Lipitor 10 mg p.o. at bedtime. 15. Deep venous thrombosis prophylaxis, Lovenox 40 mg subcu daily. 16. Gastrointestinal prophylaxis, Protonix 40 mg p.o. daily. CODE STATUS: The patient wants to be a FULL CODE. Patient does not have any surrogate decision make r. Disposition plan based on clinical course. Plan of care discussed with the patient in detail.
[2018-02-24] MEDS ORDERED: cefTRIAXone\\ROCEPHIN 1 GM VIAL ONE (15:59)
[2018-02-24] MEDS ORDERED: Nitroglycerin 0.4 MG TAB (25 Tab Bottle) SL PRN (16:16)
[2018-02-24] MEDS ORDERED: Loperamide HCl 2 MG CAP PO PRN (16:16)
[2018-02-24] MEDS ORDERED: Sodium Chloride 0.65% Nasal 44 ML BOT EA NARE PRN (16:16)
[2018-02-24] MEDS ORDERED: Artificial Tears 18 DROP/0.9 ML EA EYE PRN (16:16)
[2018-02-24] MEDS ORDERED: Mag-Al 1200 mg/1200 mg/30 ML UDCUP PO PRN (16:16)
[2018-02-24] MEDS ORDERED: Dextrose 5% in Water 1,000 ML IV PRN (16:16)
[2018-02-24] MEDS ORDERED: Milk Of Magnesia 30 ML UDCUP PO PRN (16:16)
[2018-02-24] MEDS ORDERED: Acetaminophen 325 MG TAB PO PRN (16:16)
[2018-02-24] MEDS ORDERED: Ondansetron ODT 4 MG TAB PO PRN (16:16)
[2018-02-24] MEDS ORDERED: Eucerin (Mineral Oil/Petrolatum,White) 30 gm Jar TOP PRN (16:16)
[2018-02-24] MEDS ORDERED: hydrALAZINE 20 MG/ML VIAL SLOW IVP PRN (16:16)
[2018-02-24] MEDS ORDERED: Lidocaine Viscous Sol 2% 15 ml UD Cup SSP PRN (16:16)
[2018-02-24] MEDS ORDERED: Diabetic Tussin 200 MG/10 ML UDCUP PO PRN (16:16)
[2018-02-24] MEDS ORDERED: Dextrose 50% Abboject 50 ML SYRINGE SLOW IVP PRN (16:16)
[2018-02-24] MEDS ORDERED: Loratadine 10 MG TAB PO PRN (16:16)
[2018-02-24] MEDS ORDERED: Senokot 8.6 MG TAB PO PRN (16:16)
[2018-02-24] MEDS ORDERED: Ondansetron HCl/PF 4 MG/2 ML Vial IVP PRN (16:16)
[2018-02-24] MEDS ORDERED: Chloraseptic Spray 180 ml Bottle PO PRN (16:16)
[2018-02-24] MEDS ORDERED: Gabapentin 300 MG CAP PO SCH (16:45)
[2018-02-24 16:48] LABS: Lactic Acid 2.6 mmol/L (0.5-2.2)
[2018-02-24 16:58] VITALS: BMI 28.3
[2018-02-24] MEDS: Lubiprostone 24 MCG CAP PO SCH (17:58)
[2018-02-24] MEDS: cefTRIAXone\\ROCEPHIN 1 GM in Sodium Chloride 0.9% 100 ML IVPB SCH (17:59)
[2018-02-24] MEDS: Gabapentin 300 MG CAP PO SCH (20:29)
[2018-02-24] MEDS: traMADol HCl 50 MG TAB PO PRN (20:29)
[2018-02-24] MEDS: Lorazepam 0.5 MG TAB PO SCH (20:29)
[2018-02-24] MEDS: Atorvastatin Calcium 10 MG TAB PO SCH (20:30)
[2018-02-25] MEDS: traMADol HCl 50 MG TAB PO PRN (05:00)
[2018-02-25] MEDS: Levothyroxine 150 MCG TAB PO SCH (05:01)
[2018-02-25 05:06] LABS: #Basophils 0.1 thou/uL (0.0-0.2); #Eosinphils 0.1 thou/uL (0.0-0.7); #Lymphocytes 2.2 thou/uL (1.20-3.40); #Monocytes 1.1 thou/uL (0.11-0.59); #Neutrophils 6.4 thou/uL (1.40-6.50); %Basophils 1.1 % (0.0-1.0); %Eosinophils 0.5 % (0.0-10.0); %Lymphocytes 22.6 % (21.0-51.0); %Monocytes 11.2 % (0.0-10.0); %Neutrophils 64.5 % (42.0-75.0); Hemoglobin 11.6 g/dL (12.0-16.0); Mean Corpuscular HGB CONC 32.8 g/dL (32.0-36.0); Mean Corpuscular Hemoglobin 30.2 pg (27.0-31.0); Mean Corpuscular Volume 92.3 fL (78.0-98.0); Mean Platelet Volume 6.8 fL (7.4-10.4); Platelet Count 278 thou/uL (130-400); RBC Distribution Width 14.8 % (11.5-14.5); Red Blood Cell (RBC) Count 3.82 mill/uL (4.20-5.40); White Blood Cell (WBC) Count 9.9 thou/uL (4.8-10.8)
[2018-02-25 05:16] LABS: Anion Gap 15 mmol/L (10-20); BUN (Urea Nitrogen) 69 mg/dL (9.8-20.1); Calc. Creatinine Clearance 31 mL/min (70-130); Calcium 9.7 mg/dL (7.8-10.44); Carbon Dioxide 32 mmol/L (23-31); Chloride 95 mmol/L (98-107); Estimated GFR-MDRD 30; Glucose 183 mg/dL (83-110); Potassium 3.2 mmol/L (3.5-5.1); Sodium 139 mmol/L (136-145)
[2018-02-25] MEDS ORDERED: Amiodarone 200 MG TAB PO SCH (09:00)
[2018-02-25] MEDS: Lubiprostone 24 MCG CAP PO SCH ×2 (09:16→17:20)
[2018-02-25] MEDS: Aspirin 81 mg Enteric Coated Tablet PO SCH (09:20)
[2018-02-25] MEDS: Saccharomyces boulardii 250 MG CAP PO SCH (09:20)
[2018-02-25] MEDS: Torsemide 20 MG TAB PO SCH ×2 (09:21→15:18)
[2018-02-25] MEDS: predniSONE 20 MG TAB PO SCH (09:21)
[2018-02-25] MEDS: Gabapentin 300 MG CAP PO SCH ×3 (09:22→21:00)
[2018-02-25] MEDS: Metolazone 5 MG TAB PO SCH (09:22)
[2018-02-25] MEDS: Enoxaparin Sodium 30 MG/0.3 ML SYRINGE SC SCH (09:22)
[2018-02-25] MEDS ORDERED: Potassium Chloride 20 MEQ TAB PO SCH ×2 (09:45→18:00)
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
[2018-02-25] MEDS: Fentanyl 100 MCG/2 ML VIAL SLOW IVP PRN ×2 (12:56→17:22)
[2018-02-25] MEDS: HumaLOG 300 UNITS/3 ML VIAL SC PRN ×3 (13:00→21:04)
[2018-02-25] MEDS: Acetaminophen 500 MG TAB PO PRN (15:17)
[2018-02-25 15:45] LABS: Vancomycin, Random 7.6 ug/mL (See Comment)
[2018-02-25] MEDS ORDERED: cefTRIAXone\\ROCEPHIN 1 GM in Sodium Chloride 0.9% 100 ML IVPB SCH (16:00)
[2018-02-25] MEDS ORDERED: Vancomycin HCl 750 MG in Sodium Chloride 0.9% 250 ML 250 ML IVPB SCH ×2 (17:00→19:00)
[2018-02-25] MEDS ORDERED: Carvedilol 3.125 MG TAB PO SCH (17:00)
[2018-02-25] MEDS: cefTRIAXone\\ROCEPHIN 1 GM in Sodium Chloride 0.9% 100 ML IVPB SCH (17:21)
--- NOTE | 2018-02-25 17:45 | CON ---
DATE OF CONSULTATION: 02/25/2018 CARDIOLOGY CONSULTATION REASON FOR CONSULTATION: Aortic stenosis, congestive heart failure, diastolic. HISTORY OF PRESENT ILLNESS: Ms. Arminda Ivory is a very pleasant 82-year-old woman. The patient is hospitalized on this occasion with hypoglycemia and the wound which is nonhealing. Please see the p ast history. She has been admitted on multiple occasions. She has coronary disease as well as aorti c stenosis which is moderate to severe on most recent echocardiogram. MEDICATIONS: Please see current list. PHYSICAL EXAMINATION: GENERAL: This is a pleasant elderly woman in no distress. VITAL SIGNS: Blood pressure 126/63, pulse 67 and regular. LUNGS: Clear. CARDIAC: Normal S1, normal S2. There is a 2-3/6 midsystolic murmur. ABDOMEN: Soft, nontender. EXTREMITIES: Moderate edema. She has a nonhealing ulcer of the right lower extremity, probably a pr essure sore. She has been lying with a pillow under that leg much of her time. PERTINENT LABORATORY DATA: Potassium is 3.2. ASSESSMENT: 1. Congestive heart failure, diastolic, with normal left ventricular systolic function. 2. Coronary artery disease. PLAN: 1. Try to elevate the leg to keep pressure off the nonhealing ulcer. 2. Replete potassium. 3. We will change to intravenous Lasix, probably will need to be over the weekend.
[2018-02-25] MEDS: Isosorbide Dinitrate 5 MG TAB PO SCH (21:00)
[2018-02-25] MEDS: Atorvastatin Calcium 10 MG TAB PO SCH (21:01)
[2018-02-25] MEDS: Lorazepam 0.5 MG TAB PO SCH (21:01)
--- NOTE | 2018-02-26 01:03 | CON ---
DATE OF CONSULTATION: 02/25/2018 REASON FOR CONSULTATION: Possible cellulitis. HISTORY OF PRESENT ILLNESS: An 82-year-old patient who has a history of type 2 diabetes mellitus, ve nous insufficiency, obesity and chronic stasis dermatitis. The patient has had quite a few admission s to this hospital in the past few months for issues related to her atrial arrhythmia and the lower e xtremities. The patient had an amputation of the left fifth digit on 10/05/2017 for osteomyelitis ma nagement. More recently, she had a diagnosis of cellulitis and was treated with IV and oral antimicr obial therapy. Apparently, she was discharged on Augmentin, which she took for a few days. She was visiting the [facility] in [facility] the day of admission because of an u lcer in the posterior aspect of the right leg. There at the clinic, she was found to have a blood gl ucose of 36. Paramedics were called and the patient was brought to the emergency room. There was so me report of pain in the right lower extremity, which was intense and it was concern with cellulitis. The patient has been started on antimicrobial therapy. Denied any headaches, visual symptoms, sore throat, odynophagia, dysphagia, no fever or chills, no cough or sputum production or chest pain, no dyspnea, no abdominal pain or diarrhea. She is actually constipated. No dysuria or frequency. She has chronic left shoulder pain, unchanged. PAST MEDICAL HISTORY: Venous stasis dermatitis; type 2 diabetes; ulcer, right leg secondary to venou s insufficiency; gout; obesity; hypothyroidism; hypertension; CKD, stage 3 to 4; atrial fibrillation; absence of hypoglycemia; aortic stenosis. PAST SURGICAL HISTORY: Cholecystectomy, left foot toe amputations, appendectomy, and hysterectomy. ALLERGIES: HYDROCODONE. FAMILY HISTORY: Noncontributory. SOCIAL HISTORY: Lives by herself with home health care nurse. Never a smoker. CURRENT MEDICATIONS: Include a Tylenol, Maalox, Cordarone, Ecotrin, Lipitor, Rocephin, dextrose, fen tanyl, gabapentin, hydralazine, insulin, levothyroxine, metolazone, vancomycin. PHYSICAL EXAMINATION: VITAL SIGNS: T-max 98.1, blood pressure 126/61, pulse 67, respirations 12 with O2 sat 97%. SKIN: Shows the lower extremity, circumferential areas of salmon-colored erythema. There is a round 1.5 cm ulceration in the lateral posterior aspect of the left leg in the distal segment. The areas of previous amputations have healed. She has no lymphadenopathy. HEENT: Eye movements are symmetric. Sclerae white. Nasal passages patent. Oral cavity moist. Few remaining teeth. NECK: Supple, no jugular vein distention. LUNGS: Symmetric air entry. HEART: S1, S2 with regular rate with a soft aortic murmur. ABDOMEN: Soft, not distended or tender. No ascites. She has quite prominent panniculus. No bladde r distention. EXTREMITIES: No joint inflammatory activity noted. There is evidence of chronic lymphedema in the l ower extremities, more intense in the right than the left side. Pulses are 1+ in dorsalis pedis. Ca p refill is normal. LABORATORY DATA: White cell count was 13.9 and now 9.9, hemoglobin 12, platelets 300, 88% neutrophil s which is down 64%. Sodium 139, creatinine is 1.65 which is down from admission. Liver profile nor mal. Albumin normal. Globulin normal. Urinalysis was normal. Reports include a lower extremity ul trasound from last month with edema, cystic area in the medial aspect of the left lower leg, probably a vascular process. There is an echocardiogram report from 01/2018 with normal LV size, ejection fr action normal, mild MR, and aortic valve with moderate to severe stenosis. There is an abdomen and p saud CT from 12/30/2017 with a fecal impaction, but no other changes of significance. Chest x-ray f rom last month with stable appearing chest with mild increased bronchovascular markings. ASSESSMENT: Type 2 diabetes, venous insufficiency, stasis dermatitis, possible associated cellulitis , chronic venous ulceration, recurrent episodes of hypoglycemia in the face of insulin treatment asso ciated with moderate to severe decrease in GFR. DISCUSSION: I am not sure that there is compelling evidence to suggest persistence of cellulitis. S he could have just venous insufficiency with stasis dermatitis. Although, at this point, in view of the neutrophilia with probably on the caution and treat her initially with IV Rocephin and then trans itioned to oral Keflex, eventually transition to Pen-Vee K 250 mg twice daily for secondary prophylax is. In addition to that, she will need compression dressing for management of the ulceration and yohana ous insufficiency/stasis dermatitis. The hypoglycemia seems to be the more immediate problem that le d to admission and this is related to the insulin treatment plus the decrease in GFR and most likely insulin will have to be discontinued.
[2018-02-26] MEDS: Fentanyl 100 MCG/2 ML VIAL SLOW IVP PRN ×5 (04:11→22:34)
[2018-02-26] MEDS: Levothyroxine 150 MCG TAB PO SCH (04:46)
[2018-02-26] MEDS: Furosemide 40 MG/4 ML VIAL SLOW IVP SCH ×2 (06:09→14:28)
[2018-02-26] MEDS ORDERED: Potassium Chloride 20 MEQ TAB PO SCH ×2 (09:00→10:45)
[2018-02-26] MEDS ORDERED: Metolazone 5 MG TAB PO SCH (09:00)
[2018-02-26] MEDS: traMADol HCl 50 MG TAB PO PRN (09:04)
[2018-02-26] MEDS: Saccharomyces boulardii 250 MG CAP PO SCH (09:05)
[2018-02-26] MEDS: predniSONE 20 MG TAB PO SCH (09:05)
[2018-02-26] MEDS: Metolazone 5 MG TAB PO SCH (09:05)
[2018-02-26] MEDS: Isosorbide Dinitrate 5 MG TAB PO SCH ×2 (09:06→20:05)
[2018-02-26] MEDS: Aspirin 81 mg Enteric Coated Tablet PO SCH (09:06)
[2018-02-26] MEDS: Amiodarone 200 MG TAB PO SCH (09:06)
[2018-02-26] MEDS: Lubiprostone 24 MCG CAP PO SCH ×2 (09:07→17:11)
[2018-02-26] MEDS: Enoxaparin Sodium 30 MG/0.3 ML SYRINGE SC SCH (09:07)
[2018-02-26] MEDS: Insulin NPH/Reg Insulin Hm 300 UNITS/3 ML VIAL SC SCH (09:07)
[2018-02-26] MEDS: Gabapentin 300 MG CAP PO SCH ×3 (09:07→20:02)
[2018-02-26] MEDS: Potassium Chloride 20 MEQ TAB PO SCH ×2 (10:41→17:11)
--- NOTE | 2018-02-26 12:16 | PDOC.PN ---
- Subjective Encounter Start Date: 02/26/18 Encounter Start Time: 08:20 Patient seen and examined. No new complaints. No overnight events - Objective Resuscitation Status: Resuscitation Status FULL:Full Resuscitation MAR Reviewed: Yes Vital Signs & Weight: Vital Signs (12 hours) Temp Pulse Resp BP BP Pulse Ox 02/26/18 08:00 98.0 F 75 18 02/26/18 07:54 98.0 F 75 18 135/75 95 02/26/18 06:08 146/68 H Weight Admit Weight 165 lb Weight 165 lb I&O: 02/25/18 02/26/18 02/27/18 06:59 06:59 06:59 Intake Total 720 1700 Balance 720 1700 Result Diagrams: 02/25/18 03:57 02/25/18 03:57 Additional Labs: Accuchecks 02/26/18 02/26/18 02/25/18 11:05 04:45 20:24 POC Glucose 224 H 221 H 372 H 02/25/18 16:20 POC Glucose 299 H Phys Exam - Physical Examination Constitutional: NAD HEENT: PERRLA, moist MMs, sclera anicteric Neck: no JVD, supple Respiratory: no wheezing, no rales, no rhonchi Cardiovascular: irregular SM+ Gastrointestinal: soft, non-tender, no distention, positive bowel sounds obesity+ right leg cellulitis with wound Neurological: non-focal, normal sensation Lymphatic: no nodes Psychiatric: normal affect Skin: no rash, normal turgor Dx/Plan (1) Cellulitis of lower extremity Code(s): L03.119 - CELLULITIS OF UNSPECIFIED PART OF LIMB Status: Acute Qualifiers: Laterality: right Qualified Code(s): L03.115 - Cellulitis of right lower limb Comment: (2) Hypokalemia Code(s): E87.6 - HYPOKALEMIA Status: Acute Comment: (3) CKD (chronic kidney disease), stage III Code(s): N18.3 - CHRONIC KIDNEY DISEASE, STAGE 3 (MODERATE) Status: Chronic Comment: (4) Chronic diastolic congestive heart failure Code(s): I50.32 - CHRONIC DIASTOLIC (CONGESTIVE) HEART FAILURE Status: Chronic (5) Coronary artery disease Code(s): I25.10 - ATHSCL HEART DISEASE OF [place] CORONARY ARTERY W/O ANG PCTRS Status: Chronic Qualifiers: (6) Diabetes type 2, controlled Code(s): E11.9 - TYPE 2 DIABETES MELLITUS WITHOUT COMPLICATIONS Status: Chronic Comment: (7) Dyslipidemia Code(s): E78.5 - HYPERLIPIDEMIA, UNSPECIFIED Status: Chronic (8) GERD (gastroesophageal reflux disease) Code(s): K21.9 - GASTRO-ESOPHAGEAL REFLUX DISEASE WITHOUT ESOPHAGITIS Status: Chronic Qualifiers: (9) Hypertension Code(s): I10 - ESSENTIAL (PRIMARY) HYPERTENSION Status: Chronic Qualifiers: (10) 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 Code(s): E11.649 - TYPE 2 DIABETES MELLITUS WITH HYPOGLYCEMIA WITHOUT COMA Status: Chronic (11) Hypothyroidism Code(s): E03.9 - HYPOTHYROIDISM, UNSPECIFIED Status: Chronic Qualifiers: Comment: (12) Paroxysmal atrial fibrillation Code(s): I48.0 - PAROXYSMAL ATRIAL FIBRILLATION Status: Chronic (13) Severe aortic stenosis by prior echocardiogram Code(s): I35.0 - NONRHEUMATIC AORTIC (VALVE) STENOSIS Status: Chronic (14) Stasis dermatitis of both legs Code(s): I83.11 - VARICOSE VEINS OF RIGHT LOWER EXTREMITY WITH INFLAMMATION; I83.12 - VARICOSE VEINS OF LEFT LOWER EXTREMITY WITH INFLAMMATION Status: Chronic - Plan cont current plan of care, continue antibiotics, PT/OT, 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 * pain controlled Review of Systems - Review of Systems Eyes: negative: Pain, Vision Change, Conjunctivae Inflammation, Eyelid Inflammation, Redness, Other ENT: negative: Ear Pain, Ear Discharge, Nose Pain, Nose Discharge, Nose Congestion, Mouth Pain, Mouth Swelling, Throat Pain, Throat Swelling, Other Respiratory: negative: Cough, Dry, Shortness of Breath, Hemoptysis, SOB with Excertion, Pleuritic Pain, Sputum, Wheezing Cardiovascular: negative: chest pain, palpitations, orthopnea, paroxysmal nocturnal dyspnea, edema, light headedness, other Gastrointestinal: negative: Nausea, Vomiting, Abdominal Pain, Diarrhea, Constipation, Melena, Hematochezia, Other Genitourinary: negative: Dysuria, Frequency, Incontinence, Hematuria, Retention , Other Musculoskeletal: negative: Neck Pain, Shoulder Pain, Arm Pain, Back Pain, Hand Pain, Leg Pain, Foot Pain, Other - Medications/Allergies Allergies/Adverse Reactions: Allergies Allergy/AdvReac Type Severity Reaction Status Date / Time hydrocodone [From [place]] Allergy Verified 01/06/18 14:29 Medications: Current Medications Acetaminophen (Tylenol) 1,000 mg PO Q6H PRN PRN Reason: Mild Pain (1-3) Last Admin: 02/25/18 15:17 Dose: 1,000 mg Al Hydroxide/Mg Hydroxide (Maalox) 30 ml PO Q6H PRN PRN Reason: Heartburn or Indigestion Amiodarone HCl (Cordarone) 200 mg PO DAILY [facility] Last Admin: 02/26/18 09:06 Dose: 200 mg Artificial Tears (Tears Naturale) 0 drop EA EYE PRN PRN PRN Reason: Dry Eyes Aspirin (Ecotrin) 81 mg PO DAILY [facility] Last Admin: 02/26/18 09:06 Dose: 81 mg Atorvastatin Calcium (Lipitor) 10 mg PO HS [facility] Last Admin: 02/25/18 21:01 Dose: 10 mg Cholecalciferol (Vitamin D3) 5,000 units PO DAILY [facility] Last Admin: 02/26/18 09:06 Dose: 5,000 units Dextrose/Water (Dextrose 50%) 25 gm SLOW IVP PRN PRN PRN Reason: Hypoglycemia Enoxaparin Sodium (Lovenox) 30 mg SC 0900 [facility] Last Admin: 02/26/18 09:07 Dose: 30 mg Fentanyl (Sublimaze) 25 mcg SLOW IVP Q3H PRN PRN Reason: Severe Pain (7-10) Last Admin: 02/26/18 10:35 Dose: 25 mcg Furosemide (Lasix) 40 mg SLOW IVP 0600,1400 [facility] Last Admin: 02/26/18 06:09 Dose: 40 mg Gabapentin (Neurontin) 600 mg PO TID [facility] Last Admin: 02/26/18 09:07 Dose: 600 mg Glucagon (Glucagon) 1 mg IM PRN PRN PRN Reason: Hypoglycemia Guaifenesin (Robitussin Sf) 200 mg PO Q4H PRN PRN Reason: Cough Hydralazine HCl (Apresoline) 10 mg SLOW IVP Q4H PRN PRN Reason: Systolic BP > 180 Dextrose/Water (D5w) 1,000 mls @ 0 mls/hr IV .Q0M PRN; As Directed PRN Reason: Hypoglycemia Ceftriaxone Sodium 1 gm/ (Sodium Chloride) 100 mls @ 200 mls/hr IVPB 1800 [facility] Last Admin: 02/25/18 17:21 Dose: 100 mls Vancomycin HCl 750 mg/ Sodium (Chloride) 250 mls @ 250 mls/hr IVPB Q24HR@1900 [facility] Last Admin: 02/25/18 20:14 Dose: 250 mls Insulin Human Isoph/Insulin Regular (Humulin 70/30) 45 units SC QAM[facility] Last Admin: 02/26/18 09:07 Dose: 45 unit Insulin Human Lispro (Humalog) 0 units SC .MODERATE SLIDING SC PRN PRN Reason: Moderate Correctional Scale Last Admin: 02/25/18 17:28 Dose: 6 unit Insulin Human Lispro (Humalog) 0 units SC .BEDTIME SLIDING SC PRN PRN Reason: Bedtime Correctional Scale Last Admin: 02/25/18 21:04 Dose: 5 unit Isosorbide Dinitrate (Isordil) 10 mg PO BID [facility] Last Admin: 02/26/18 09:06 Dose: 10 mg Levothyroxine Sodium (Synthroid) 150 mcg PO 0600 [facility] Last Admin: 02/26/18 04:46 Dose: 150 mcg Lidocaine HCl (Xylocaine 2% Viscous) 15 ml SSP Q3HR PRN PRN Reason: Pain Loperamide HCl (Imodium) 2 mg PO PRN PRN PRN Reason: Diarrhea/Loose Stools Loratadine (Claritin) 10 mg PO DAILYPRN PRN PRN Reason: Sinus Symptoms Lorazepam (Ativan) 0.5 mg PO [facility] Last Admin: 02/25/18 21:01 Dose: 0.5 mg Lubiprostone ([facility]) [facility] Last Admin: 02/26/18 09:07 Dose: 24 mcg Magnesium Hydroxide (Milk Of Magnesium) 30 ml PO DAILYPRN PRN PRN Reason: Constipation Metolazone (Zaroxolyn) 5 [facility] Last Admin: 02/26/18 09:05 Dose: 5 mg Mineral Oil/White Petrolatum (Eucerin Cream) 0 gm TOP BIDPRN PRN PRN Reason: Dry Skin Miscellaneous Medication (Pharmacy To Dose) 1 each IVPB PRN PRN PRN Reason: Pharmacy to dose Nitroglycerin (Nitrostat) 0.4 mg SL Q5MIN PRN PRN Reason: Chest Pain Ondansetron HCl (Zofran Odt) 4 mg PO Q6H PRN PRN Reason: Nausea/Vomiting Ondansetron HCl (Zofran) 4 mg IVP Q6H PRN PRN Reason: Nausea/Vomiting Pantoprazole Sodium (Protonix) 40 mg PO DAILY [facility] Last Admin: 02/26/18 09:07 Dose: 40 mg Phenol (Chloraseptic [place] 180 Ml Bot) 0 ml PO PRN PRN PRN Reason: Sore Throat Potassium Chloride (K-Dur) 20 meq PO [facility] Last Admin: 02/26/18 10:41 Dose: Not Given Prednisone (Prednisone) 10 mg PO DAILY [facility] Last Admin: 02/26/18 09:05 Dose: 10 mg Saccharomyces Boulardii (Florastor) 250 mg PO DAILY [facility] Last Admin: 02/26/18 09:05 Dose: 250 mg Senna (Senokot) 2 tab PO HSPRN PRN PRN Reason: Constipation Sodium Chloride ([place] Nasal [place] 0.65%) 0 ml EA NARE QIDPRN PRN PRN Reason: Nasal Congestion Tramadol HCl (Ultram) 100 mg PO Q6H PRN PRN Reason: Moderate Pain (4-6) Last Admin: 02/26/18 09:04 Dose: 100 mg
[2018-02-26] MEDS: HumaLOG 300 UNITS/3 ML VIAL SC PRN (12:30)
--- NOTE | 2018-02-26 14:24 | EKG ---
Test Reason : Blood Pressure : / mmHG Vent. Rate : 078 BPM Atrial Rate : 078 BPM P-R Int : 334 ms QRS Dur : 078 ms QT Int : 380 ms P-R-T Axes : 008 -04 154 degrees QTc Int : 433 ms Sinus rhythm with 1st degree A-V block with occasional Premature ventricular complexes Left ventricular hypertrophy with repolarization abnormality Inferior infarct , age undetermined Abnormal ECG Confirmed by CHARLOTTE ARCOS ([id number]), news videotape editor EARNESTINE MEDINA ([id number]) on 02/26/2018 2:24:21 PM Referred By: Confirmed By:CHARLOTTE ARCOS
[2018-02-26] MEDS: cefTRIAXone\\ROCEPHIN 1 GM in Sodium Chloride 0.9% 100 ML IVPB SCH (17:12)
[2018-02-26 18:29] LABS: Vancomycin, Trough 9.7 ug/mL
[2018-02-26] MEDS: Vancomycin HCl 1.25 GM in Sodium Chloride 0.9% 250 ML 250 ML IVPB SCH (19:08)
[2018-02-26] MEDS: Lorazepam 0.5 MG TAB PO SCH (20:02)
[2018-02-26] MEDS: Atorvastatin Calcium 10 MG TAB PO SCH (20:02)
[2018-02-26] MEDS: Acetaminophen 500 MG TAB PO PRN (20:03)
[2018-02-27] MEDS: Fentanyl 100 MCG/2 ML VIAL SLOW IVP PRN ×5 (03:27→20:24)
[2018-02-27 05:04] LABS: #Basophils 0.1 thou/uL (0.0-0.2); #Eosinphils 0.1 thou/uL (0.0-0.7); #Lymphocytes 2.6 thou/uL (1.20-3.40); #Monocytes 0.8 thou/uL (0.11-0.59); #Neutrophils 5.1 thou/uL (1.40-6.50); %Basophils 0.7 % (0.0-1.0); %Eosinophils 0.7 % (0.0-10.0); %Lymphocytes 29.6 % (21.0-51.0); %Monocytes 9.6 % (0.0-10.0); %Neutrophils 59.4 % (42.0-75.0); Mean Corpuscular HGB CONC 31.3 g/dL (32.0-36.0); Mean Corpuscular Hemoglobin 29.2 pg (27.0-31.0); Mean Corpuscular Volume 93.3 fL (78.0-98.0); Mean Platelet Volume 6.8 fL (7.4-10.4); Platelet Count 245 thou/uL (130-400); RBC Distribution Width 14.8 % (11.5-14.5); Red Blood Cell (RBC) Count 3.77 mill/uL (4.20-5.40); White Blood Cell (WBC) Count 8.6 thou/uL (4.8-10.8)
[2018-02-27 05:30] LABS: Anion Gap 13 mmol/L (10-20); BUN (Urea Nitrogen) 59 mg/dL (9.8-20.1); Calc. Creatinine Clearance 34 mL/min (70-130); Calcium 10.1 mg/dL (7.8-10.44); Carbon Dioxide 33 mmol/L (23-31); Chloride 95 mmol/L (98-107); Estimated GFR-MDRD 33; Glucose 236 mg/dL (83-110); Potassium 3.6 mmol/L (3.5-5.1); Sodium 137 mmol/L (136-145)
[2018-02-27] MEDS: Levothyroxine 150 MCG TAB PO SCH (05:32)
[2018-02-27] MEDS: traMADol HCl 50 MG TAB PO PRN ×3 (05:32→21:51)
[2018-02-27] MEDS: Acetaminophen 500 MG TAB PO PRN ×3 (05:32→21:51)
[2018-02-27] MEDS: Furosemide 40 MG/4 ML VIAL SLOW IVP SCH ×2 (05:33→13:09)
[2018-02-27] MEDS: HumaLOG 300 UNITS/3 ML VIAL SC PRN ×2 (05:35→20:33)
[2018-02-27] MEDS: Insulin NPH/Reg Insulin Hm 300 UNITS/3 ML VIAL SC SCH (08:10)
[2018-02-27] MEDS: Lubiprostone 24 MCG CAP PO SCH ×2 (08:11→16:49)
[2018-02-27] MEDS: Isosorbide Dinitrate 5 MG TAB PO SCH ×2 (08:11→20:20)
[2018-02-27] MEDS: Gabapentin 300 MG CAP PO SCH ×3 (08:11→20:19)
[2018-02-27] MEDS: Aspirin 81 mg Enteric Coated Tablet PO SCH (08:13)
[2018-02-27] MEDS: predniSONE 20 MG TAB PO SCH (08:13)
[2018-02-27] MEDS: Amiodarone 200 MG TAB PO SCH (08:13)
[2018-02-27] MEDS: Saccharomyces boulardii 250 MG CAP PO SCH (08:16)
[2018-02-27] MEDS: Potassium Chloride 20 MEQ TAB PO SCH ×2 (08:16→16:48)
[2018-02-27] MEDS: Enoxaparin Sodium 30 MG/0.3 ML SYRINGE SC SCH (08:17)
--- NOTE | 2018-02-27 09:08 | PDOC.PN ---
- Subjective Encounter Start Date: 02/27/18 Encounter Start Time: 08:00 Patient seen and examined. No new complaints. No overnight events pt does not want to leave hospital until wound care physician will see her - Objective Resuscitation Status: Resuscitation Status FULL:Full Resuscitation MAR Reviewed: Yes Vital Signs & Weight: Vital Signs (12 hours) Temp Pulse Resp BP Pulse Ox 02/27/18 07:33 98.0 F 71 16 181/79 H 100 02/26/18 21:43 98.0 F 75 18 Weight Admit Weight 165 lb Weight 165 lb I&O: 02/26/18 02/27/18 02/28/18 06:59 06:59 06:59 Intake Total 1700 730 Balance 1700 730 Result Diagrams: 02/27/18 04:31 02/27/18 04:31 Additional Labs: Accuchecks 02/27/18 02/26/18 02/26/18 05:33 20:10 16:23 POC Glucose 239 H 129 H 100 02/26/18 11:05 POC Glucose 224 H Phys Exam - Physical Examination Constitutional: NAD HEENT: PERRLA, moist MMs, sclera anicteric Neck: no JVD, supple Respiratory: no wheezing, no rales, no rhonchi Cardiovascular: no rub, irregular SM+ Gastrointestinal: soft, non-tender, no distention, positive bowel sounds obesity+ Musculoskeletal: pulses present, edema present right leg cellultis, stasis dermatitis, + wound Neurological: non-focal, normal sensation, moves all 4 limbs Lymphatic: no nodes Psychiatric: normal affect, A&O x 3 Skin: no rash, normal turgor Dx/Plan (1) Cellulitis of lower extremity Code(s): L03.119 - CELLULITIS OF UNSPECIFIED PART OF LIMB Status: Acute Qualifiers: Laterality: right Qualified Code(s): L03.115 - Cellulitis of right lower limb Comment: with stasis dermatitis and wound (2) Hypokalemia Code(s): E87.6 - HYPOKALEMIA Status: Resolved Comment: (3) CKD (chronic kidney disease), stage III Code(s): N18.3 - CHRONIC KIDNEY DISEASE, STAGE 3 (MODERATE) Status: Chronic Comment: (4) Chronic diastolic congestive heart failure Code(s): I50.32 - CHRONIC DIASTOLIC (CONGESTIVE) HEART FAILURE Status: Chronic (5) Coronary artery disease Code(s): I25.10 - ATHSCL HEART DISEASE OF [place] CORONARY ARTERY W/O ANG PCTRS Status: Chronic Qualifiers: (6) Diabetes type 2, controlled Code(s): E11.9 - TYPE 2 DIABETES MELLITUS WITHOUT COMPLICATIONS Status: Chronic Comment: (7) Dyslipidemia Code(s): E78.5 - HYPERLIPIDEMIA, UNSPECIFIED Status: Chronic (8) GERD (gastroesophageal reflux disease) Code(s): K21.9 - GASTRO-ESOPHAGEAL REFLUX DISEASE WITHOUT ESOPHAGITIS Status: Chronic Qualifiers: (9) Hypertension Code(s): I10 - ESSENTIAL (PRIMARY) HYPERTENSION Status: Chronic Qualifiers: (10) 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 Code(s): E11.649 - TYPE 2 DIABETES MELLITUS WITH HYPOGLYCEMIA WITHOUT COMA Status: Resolved (11) Hypothyroidism Code(s): E03.9 - HYPOTHYROIDISM, UNSPECIFIED Status: Chronic Qualifiers: Comment: (12) Paroxysmal atrial fibrillation Code(s): I48.0 - PAROXYSMAL ATRIAL FIBRILLATION Status: Chronic (13) Severe aortic stenosis by prior echocardiogram Code(s): I35.0 - NONRHEUMATIC AORTIC (VALVE) STENOSIS Status: Chronic (14) Stasis dermatitis of both legs Code(s): I83.11 - VARICOSE VEINS OF RIGHT LOWER EXTREMITY WITH INFLAMMATION; I83.12 - VARICOSE VEINS OF LEFT LOWER EXTREMITY WITH INFLAMMATION Status: Chronic - Plan cont current plan of care, continue antibiotics * continue wound care * continue empiric vancomycin and rocephin * continue diuresis * medication reviewed as below * symptomatic treatment * she does not want to go to SNU. Review of Systems - Review of Systems Eyes: negative: Pain, Vision Change, Conjunctivae Inflammation, Eyelid Inflammation, Redness, Other ENT: negative: Ear Pain, Ear Discharge, Nose Pain, Nose Discharge, Nose Congestion, Mouth Pain, Mouth Swelling, Throat Pain, Throat Swelling, Other Respiratory: negative: Cough, Dry, Shortness of Breath, Hemoptysis, SOB with Excertion, Pleuritic Pain, Sputum, Wheezing Cardiovascular: negative: chest pain, palpitations, orthopnea, paroxysmal nocturnal dyspnea, edema, light headedness, other Gastrointestinal: negative: Nausea, Vomiting, Abdominal Pain, Diarrhea, Constipation, Melena, Hematochezia, Other Genitourinary: negative: Dysuria, Frequency, Incontinence, Hematuria, Retention , Other Musculoskeletal: negative: Neck Pain, Shoulder Pain, Arm Pain, Back Pain, Hand Pain, Leg Pain, Foot Pain, Other Skin: negative: Rash, Lesions, [place], Bruising, Other - Medications/Allergies Allergies/Adverse Reactions: Allergies Allergy/AdvReac Type Severity Reaction Status Date / Time hydrocodone [From [place]] Allergy Verified 01/06/18 14:29 Medications: Current Medications Acetaminophen (Tylenol) 1,000 mg PO Q6H PRN PRN Reason: Mild Pain (1-3) Last Admin: 02/27/18 05:32 Dose: 1,000 mg Al Hydroxide/Mg Hydroxide (Maalox) 30 ml PO Q6H PRN PRN Reason: Heartburn or Indigestion Amiodarone HCl (Cordarone) 200 mg PO DAILY [facility] Last Admin: 02/27/18 08:13 Dose: 200 mg Artificial Tears (Tears Naturale) 0 drop EA EYE PRN PRN PRN Reason: Dry Eyes Aspirin (Ecotrin) 81 mg PO DAILY [facility] Last Admin: 02/27/18 08:13 Dose: 81 mg Atorvastatin Calcium (Lipitor) 10 mg PO HS [facility] Last Admin: 02/26/18 20:02 Dose: 10 mg Cholecalciferol (Vitamin D3) 5,000 units PO DAILY [facility] Last Admin: 02/27/18 08:12 Dose: 5,000 units Dextrose/Water (Dextrose 50%) 25 gm SLOW IVP PRN PRN PRN Reason: Hypoglycemia Enoxaparin Sodium (Lovenox) 30 mg SC 0900 [facility] Last Admin: 02/27/18 08:17 Dose: 30 mg Fentanyl (Sublimaze) 25 mcg SLOW IVP Q3H PRN PRN Reason: Severe Pain (7-10) Last Admin: 02/27/18 08:23 Dose: 25 mcg Furosemide (Lasix) 40 mg SLOW IVP 0600,1400 [facility] Last Admin: 02/27/18 05:33 Dose: 40 mg Gabapentin (Neurontin) 600 mg PO TID [facility] Last Admin: 02/27/18 08:11 Dose: 600 mg Glucagon (Glucagon) 1 mg IM PRN PRN PRN Reason: Hypoglycemia Guaifenesin (Robitussin Sf) 200 mg PO Q4H PRN PRN Reason: Cough Hydralazine HCl (Apresoline) 10 mg SLOW IVP Q4H PRN PRN Reason: Systolic BP > 180 Dextrose/Water (D5w) 1,000 mls @ 0 mls/hr IV .Q0M PRN; As Directed PRN Reason: Hypoglycemia Ceftriaxone Sodium 1 gm/ (Sodium Chloride) 100 mls @ 200 mls/hr IVPB 1800 [facility] Last Admin: 02/26/18 17:12 Dose: 100 mls Vancomycin HCl 1.25 gm/ Sodium (Chloride) 250 mls @ 166.667 mls/hr IVPB Q24HR@ 1900 [facility] Last Admin: 02/26/18 19:08 Dose: 250 mls Insulin Human Isoph/Insulin Regular (Humulin 70/30) 45 units SC QAM[facility] Last Admin: 02/27/18 08:10 Dose: 45 unit Insulin Human Lispro (Humalog) 0 units SC .MODERATE SLIDING SC PRN PRN Reason: Moderate Correctional Scale Last Admin: 02/27/18 05:35 Dose: 4 unit Insulin Human Lispro (Humalog) 0 units SC .BEDTIME SLIDING SC PRN PRN Reason: Bedtime Correctional Scale Last Admin: 02/25/18 21:04 Dose: 5 unit Isosorbide Dinitrate (Isordil) 10 mg PO BID [facility] Last Admin: 02/27/18 08:11 Dose: 10 mg Levothyroxine Sodium (Synthroid) 150 mcg PO 0600 [facility] Last Admin: 02/27/18 05:32 Dose: 150 mcg Lidocaine HCl (Xylocaine 2% Viscous) 15 ml SSP Q3HR PRN PRN Reason: Pain Loperamide HCl (Imodium) 2 mg PO PRN PRN PRN Reason: Diarrhea/Loose Stools Loratadine (Claritin) 10 mg PO DAILYPRN PRN PRN Reason: Sinus Symptoms Lorazepam (Ativan) 0.5 mg PO [facility] Last Admin: 02/26/18 20:02 Dose: 0.5 mg Lubiprostone (Amitiza) [facility] Last Admin: 02/27/18 08:11 Dose: 24 mcg Magnesium Hydroxide (Milk Of Magnesium) 30 ml PO DAILYPRN PRN PRN Reason: Constipation Metolazone (Zaroxolyn) 5 mg PO [facility] [place] Last Admin: 02/26/18 09:05 Dose: 5 mg Mineral Oil/White Petrolatum (Eucerin Cream) 0 gm TOP BIDPRN PRN PRN Reason: Dry Skin Miscellaneous Medication (Pharmacy To Dose) 1 each IVPB PRN PRN PRN Reason: Pharmacy to dose Nitroglycerin (Nitrostat) 0.4 mg SL Q5MIN PRN PRN Reason: Chest Pain Ondansetron HCl (Zofran Odt) 4 mg PO Q6H PRN PRN Reason: Nausea/Vomiting Ondansetron HCl (Zofran) 4 mg IVP Q6H PRN PRN Reason: Nausea/Vomiting Pantoprazole Sodium (Protonix) 40 mg PO DAILY [facility] Last Admin: 02/27/18 08:11 Dose: 40 mg Phenol (Chloraseptic [place] 180 Ml Bot) 0 ml PO PRN PRN PRN Reason: Sore Throat Potassium Chloride (K-Dur) 20 meq PO BID[facility] Last Admin: 02/27/18 08:16 Dose: 20 meq Prednisone (Prednisone) 10 mg PO DAILY [facility] Last Admin: 02/27/18 08:13 Dose: 10 mg Saccharomyces Boulardii (Florastor) 250 mg PO DAILY [facility] Last Admin: 02/27/18 08:16 Dose: 250 mg Senna (Senokot) 2 tab PO HSPRN PRN PRN Reason: Constipation Sodium Chloride ([place] Nasal [place] 0.65%) 0 ml EA NARE QIDPRN PRN PRN Reason: Nasal Congestion Tramadol HCl (Ultram) 100 mg PO Q6H PRN PRN Reason: Moderate Pain (4-6) Last Admin: 02/27/18 05:32 Dose: 100 mg
[2018-02-27] MEDS: cefTRIAXone\\ROCEPHIN 1 GM in Sodium Chloride 0.9% 100 ML IVPB SCH (18:11)
[2018-02-27] MEDS: Vancomycin HCl 1.25 GM in Sodium Chloride 0.9% 250 ML 250 ML IVPB SCH (18:11)
[2018-02-27] MEDS: Atorvastatin Calcium 10 MG TAB PO SCH (20:19)
[2018-02-27] MEDS: Lorazepam 0.5 MG TAB PO SCH (20:20)
[2018-02-28] MEDS: Fentanyl 100 MCG/2 ML VIAL SLOW IVP PRN (02:48)
[2018-02-28] MEDS: Levothyroxine 150 MCG TAB PO SCH (06:20)
[2018-02-28] MEDS: Furosemide 40 MG/4 ML VIAL SLOW IVP SCH ×2 (06:20→15:04)
[2018-02-28 07:09] VITALS: BP 136/61; TEMP 97.4
[2018-02-28] MEDS: Saccharomyces boulardii 250 MG CAP PO SCH (08:09)
[2018-02-28] MEDS: predniSONE 20 MG TAB PO SCH (08:10)
[2018-02-28] MEDS: Potassium Chloride 20 MEQ TAB PO SCH (08:10)
[2018-02-28] MEDS: Amiodarone 200 MG TAB PO SCH (08:10)
[2018-02-28] MEDS: Isosorbide Dinitrate 5 MG TAB PO SCH (08:10)
[2018-02-28] MEDS: Gabapentin 300 MG CAP PO SCH (08:10)
[2018-02-28] MEDS: Enoxaparin Sodium 30 MG/0.3 ML SYRINGE SC SCH (08:11)
[2018-02-28] MEDS: Aspirin 81 mg Enteric Coated Tablet PO SCH (08:11)
[2018-02-28] MEDS: Insulin NPH/Reg Insulin Hm 300 UNITS/3 ML VIAL SC SCH (08:12)
[2018-02-28] MEDS: Metolazone 5 MG TAB PO SCH (08:26)
[2018-02-28] MEDS: Acetaminophen 500 MG TAB PO PRN (09:02)
[2018-02-28] MEDS: traMADol HCl 50 MG TAB PO PRN (09:02)
--- NOTE | 2018-02-28 10:08 | PDOC.PN ---
- Subjective Encounter Start Date: 02/28/18 Encounter Start Time: 08:20 Patient seen and examined. No new complaints. No overnight events - Objective Resuscitation Status: Resuscitation Status FULL:Full Resuscitation MAR Reviewed: Yes Vital Signs & Weight: Vital Signs (12 hours) Temp Pulse Resp BP Pulse Ox 02/28/18 07:08 97.4 F L 69 16 136/61 100 Weight Admit Weight 165 lb Weight 165 lb I&O: 02/27/18 02/28/18 03/01/18 06:59 06:59 06:59 Intake Total 730 1950 Balance 730 1950 Result Diagrams: 02/27/18 04:31 02/27/18 04:31 Additional Labs: Accuchecks 02/28/18 02/27/18 02/27/18 04:57 20:28 15:40 POC Glucose 205 H 251 H 229 H 02/27/18 11:26 POC Glucose 134 H Phys Exam - Physical Examination Constitutional: NAD HEENT: moist MMs, sclera anicteric Neck: no JVD, supple Respiratory: no wheezing, no rales, no rhonchi Cardiovascular: no rub, irregular SM+ Gastrointestinal: soft, non-tender, no distention, positive bowel sounds Musculoskeletal: no edema, pulses present Neurological: non-focal, normal sensation Lymphatic: no nodes Psychiatric: normal affect, A&O x 3 Skin: no rash, normal turgor Dx/Plan (1) Cellulitis of lower extremity Code(s): L03.119 - CELLULITIS OF UNSPECIFIED PART OF LIMB Status: Acute Qualifiers: Laterality: right Qualified Code(s): L03.115 - Cellulitis of right lower limb Comment: with stasis dermatitis and wound (2) Hypokalemia Code(s): E87.6 - HYPOKALEMIA Status: Resolved Comment: (3) CKD (chronic kidney disease), stage III Code(s): N18.3 - CHRONIC KIDNEY DISEASE, STAGE 3 (MODERATE) Status: Chronic Comment: (4) Chronic diastolic congestive heart failure Code(s): I50.32 - CHRONIC DIASTOLIC (CONGESTIVE) HEART FAILURE Status: Chronic (5) Coronary artery disease Code(s): I25.10 - ATHSCL HEART DISEASE OF [place] CORONARY ARTERY W/O ANG PCTRS Status: Chronic Qualifiers: (6) Diabetes type 2, controlled Code(s): E11.9 - TYPE 2 DIABETES MELLITUS WITHOUT COMPLICATIONS Status: Chronic Comment: (7) Dyslipidemia Code(s): E78.5 - HYPERLIPIDEMIA, UNSPECIFIED Status: Chronic (8) GERD (gastroesophageal reflux disease) Code(s): K21.9 - GASTRO-ESOPHAGEAL REFLUX DISEASE WITHOUT ESOPHAGITIS Status: Chronic Qualifiers: (9) Hypertension Code(s): I10 - ESSENTIAL (PRIMARY) HYPERTENSION Status: Chronic Qualifiers: (10) 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 Code(s): E11.649 - TYPE 2 DIABETES MELLITUS WITH HYPOGLYCEMIA WITHOUT COMA Status: Resolved (11) Hypothyroidism Code(s): E03.9 - HYPOTHYROIDISM, UNSPECIFIED Status: Chronic Qualifiers: Comment: (12) Paroxysmal atrial fibrillation Code(s): I48.0 - PAROXYSMAL ATRIAL FIBRILLATION Status: Chronic (13) Severe aortic stenosis by prior echocardiogram Code(s): I35.0 - NONRHEUMATIC AORTIC (VALVE) STENOSIS Status: Chronic (14) Stasis dermatitis of both legs Code(s): I83.11 - VARICOSE VEINS OF RIGHT LOWER EXTREMITY WITH INFLAMMATION; I83.12 - VARICOSE VEINS OF LEFT LOWER EXTREMITY WITH INFLAMMATION Status: Chronic - Plan cont current plan of care, continue antibiotics * will change to oral antibiotics * will consider discharge today and she needs outpt wound care clinic follow up * she says that she has to see wound care physician, I tried to contact our T physician to see * she is medically stable and baseline * she has chronic pain and she needs to follow up with pain clinic * medication reviewed as below * symptomatic treatment. Review of Systems - Review of Systems ENT: negative: Ear Pain, Ear Discharge, Nose Pain, Nose Discharge, Nose Congestion, Mouth Pain, Mouth Swelling, Throat Pain, Throat Swelling, Other Respiratory: negative: Cough, Dry, Shortness of Breath, Hemoptysis, SOB with Excertion, Pleuritic Pain, Sputum, Wheezing Cardiovascular: negative: chest pain, palpitations, orthopnea, paroxysmal nocturnal dyspnea, edema, light headedness, other Gastrointestinal: negative: Nausea, Vomiting, Abdominal Pain, Diarrhea, Constipation, Melena, Hematochezia, Other Genitourinary: negative: Dysuria, Frequency, Incontinence, Hematuria, Retention , Other Musculoskeletal: negative: Neck Pain, Shoulder Pain, Arm Pain, Back Pain, Hand Pain, Leg Pain, Foot Pain, Other - Medications/Allergies Allergies/Adverse Reactions: Allergies Allergy/AdvReac Type Severity Reaction Status Date / Time hydrocodone [From [place]] Allergy Verified 01/06/18 14:29 Medications: Current Medications Acetaminophen (Tylenol) 1,000 mg PO Q6H PRN PRN Reason: Mild Pain (1-3) Last Admin: 02/28/18 09:02 Dose: 1,000 mg Al Hydroxide/Mg Hydroxide (Maalox) 30 ml PO Q6H PRN PRN Reason: Heartburn or Indigestion Amiodarone HCl (Cordarone) 200 mg PO DAILY [facility] Last Admin: 02/28/18 08:10 Dose: 200 mg Artificial Tears (Tears Naturale) 0 drop EA EYE PRN PRN PRN Reason: Dry Eyes Aspirin (Ecotrin) 81 mg PO DAILY [facility] Last Admin: 02/28/18 08:11 Dose: 81 mg Atorvastatin Calcium (Lipitor) 10 mg PO HS [facility] Last Admin: 02/27/18 20:19 Dose: 10 mg Cholecalciferol (Vitamin D3) 5,000 units PO DAILY [facility] Last Admin: 02/28/18 08:09 Dose: 5,000 units Dextrose/Water (Dextrose 50%) 25 gm SLOW IVP PRN PRN PRN Reason: Hypoglycemia Enoxaparin Sodium (Lovenox) 30 mg SC 0900 [facility] Last Admin: 02/28/18 08:11 Dose: 30 mg Fentanyl (Sublimaze) 25 mcg SLOW IVP Q3H PRN PRN Reason: Severe Pain (7-10) Last Admin: 02/28/18 02:48 Dose: 25 mcg Furosemide (Lasix) 40 mg SLOW IVP 0600,1400 [facility] Last Admin: 02/28/18 06:20 Dose: 40 mg Gabapentin (Neurontin) 600 mg PO TID [facility] Last Admin: 02/28/18 08:10 Dose: 600 mg Glucagon (Glucagon) 1 mg IM PRN PRN PRN Reason: Hypoglycemia Guaifenesin (Robitussin Sf) 200 mg PO Q4H PRN PRN Reason: Cough Hydralazine HCl (Apresoline) 10 mg SLOW IVP Q4H PRN PRN Reason: Systolic BP > 180 Dextrose/Water (D5w) 1,000 mls @ 0 mls/hr IV .Q0M PRN; As Directed PRN Reason: Hypoglycemia Ceftriaxone Sodium 1 gm/ (Sodium Chloride) 100 mls @ 200 mls/hr IVPB 1800 [facility] Last Admin: 02/27/18 18:11 Dose: 100 mls Vancomycin HCl 1.25 gm/ Sodium (Chloride) 250 mls @ 166.667 mls/hr IVPB Q24HR@ 1900 [facility] Last Admin: 02/27/18 18:11 Dose: 250 mls Insulin Human Isoph/Insulin Regular (Humulin 70/30) 45 units SC QAM[facility] Last Admin: 02/28/18 08:12 Dose: 45 unit Insulin Human Lispro (Humalog) 0 units SC .MODERATE SLIDING SC PRN PRN Reason: Moderate Correctional Scale Last Admin: 02/27/18 05:35 Dose: 4 unit Insulin Human Lispro (Humalog) 0 units SC .BEDTIME SLIDING SC PRN PRN Reason: Bedtime Correctional Scale Last Admin: 02/27/18 20:33 Dose: 3 unit Isosorbide Dinitrate (Isordil) 10 mg PO BID [facility] Last Admin: 02/28/18 08:10 Dose: 10 mg Levothyroxine Sodium (Synthroid) 150 mcg PO 0600 [facility] Last Admin: 02/28/18 06:20 Dose: 150 mcg Lidocaine HCl (Xylocaine 2% Viscous) 15 ml SSP Q3HR PRN PRN Reason: Pain Loperamide HCl (Imodium) 2 mg PO PRN PRN PRN Reason: Diarrhea/Loose Stools Loratadine (Claritin) 10 mg PO DAILYPRN PRN PRN Reason: Sinus Symptoms Lorazepam (Ativan) 0.5 mg PO [facility] Last Admin: 02/27/18 20:20 Dose: 0.5 mg Lubiprostone ([facility]) [facility] Last Admin: 02/27/18 16:49 Dose: 24 mcg Magnesium Hydroxide (Milk Of Magnesium) 30 ml PO DAILYPRN PRN PRN Reason: Constipation Metolazone (Zaroxolyn) 5 mg PO [facility] Last Admin: 02/28/18 08:26 Dose: 5 mg Mineral Oil/White Petrolatum (Eucerin Cream) 0 gm TOP BIDPRN PRN PRN Reason: Dry Skin Miscellaneous Medication (Pharmacy To Dose) 1 each IVPB PRN PRN PRN Reason: Pharmacy to dose Nitroglycerin (Nitrostat) 0.4 mg SL Q5MIN PRN PRN Reason: Chest Pain Ondansetron HCl (Zofran Odt) 4 mg PO Q6H PRN PRN Reason: Nausea/Vomiting Ondansetron HCl (Zofran) 4 mg IVP Q6H PRN PRN Reason: Nausea/Vomiting Pantoprazole Sodium (Protonix) 40 mg PO DAILY [facility] Last Admin: 02/28/18 08:10 Dose: 40 mg Phenol (Chloraseptic [place] 180 Ml Bot) 0 ml PO PRN PRN PRN Reason: Sore Throat Potassium Chloride (K-Dur) 20 meq PO BID-[facility] Last Admin: 02/28/18 08:10 Dose: 20 meq Prednisone (Prednisone) 10 mg PO DAILY [facility] Last Admin: 02/28/18 08:10 Dose: 10 mg Saccharomyces Boulardii (Florastor) 250 mg PO DAILY [facility] Last Admin: 02/28/18 08:09 Dose: 250 mg Senna (Senokot) 2 tab PO HSPRN PRN PRN Reason: Constipation Sodium Chloride ([place] Nasal [place] 0.65%) 0 ml EA NARE QIDPRN PRN PRN Reason: Nasal Congestion Tramadol HCl (Ultram) 100 mg PO Q6H PRN PRN Reason: Moderate Pain (4-6) Last Admin: 02/28/18 09:02 Dose: 100 mg
[2018-02-28] MEDS: Lubiprostone 24 MCG CAP PO SCH (11:30)
--- NOTE | 2018-02-28 11:57 | DIS ---
PRIMARY CARE PHYSICIAN: [facility] call admission. DATE OF ADMISSION: 02/24/2018 DATE OF DISCHARGE: 02/28/2018 DISCHARGE DISPOSITION: Home. PRIMARY DISCHARGE DIAGNOSES: 1. Right lower extremity cellulitis with wound. 2. Hypoglycemia due to diabetes type 2. 3. Hypokalemia, corrected. SECONDARY DISCHARGE DIAGNOSES: Chronic stasis dermatitis of both lower extremities, severe aortic stenosis, paroxysmal atrial fibrillation, hypothyroidism, hypertension, gastroesophageal reflux disease, dyslipidemia, diabetes type 2, coronary artery disease, chronic kidney disease stage 3, chronic diastolic heart failure, bilateral lower extremity venous insufficiency , obesity. PRIMARY PROCEDURES/OPERATIONS: None. RADIOLOGICAL INVESTIGATION: None. SIGNIFICANT LABORATORY DATA: WBC 8.6, hemoglobin 11.0, platelet 245. Sodium 137, potassium 3.6, BUN 59, creatinine 1.50, calcium 10.1. Urinalysis unremarkable. Blood culture negative. DISCHARGE MEDICATIONS: Amiodarone 200 mg p.o. daily, aspirin 81 mg p.o. daily, Lipitor 10 mg p.o. at bedtime, Coreg 3.125 mg p.o. b.i.d., Keflex 500 mg p.o. t.i.d. for 10 days, vitamin D3 5000 unit p.o. daily, gabapentin 600 mg p.o. t.i.d., insulin lispro and protamine 75/25, 45 units in morning and as per sliding scale, isosorbide dinitrate 10 mg p.o. daily, Synthroid 150 mcg p.o. daily, Ativan 0.5 mg p.o. at bedtime, Amitiza 24 mcg p.o. b.i.d., metolazone 5 mg p.o. daily, Zofran ODT 4 mg q.8 hours p.r.n., Protonix 40 mg p.o. daily, potassium chloride 20 mEq p.o. daily, prednisone 10 mg p.o. daily, torsemide 20 mg p.o. b.i.d., tramadol 50 mg as instructed. PCN VK 250 mg bid for 3 month after 10 days CONTRAINDICATIONS: None. CODE STATUS: FULL CODE. INPATIENT CONSULTANTS: Dr. Mills was consulted while in hospital. Dr. Lynch was also consulted while in hospital per patient request. TEST RESULTS PENDING ON DISCHARGE: None. ALLERGIES: HYDROCODONE. DISCHARGE PLAN: Post hospital, the patient will follow up with primary care physician as instructed. The patient is also advised to follow up with Wound Care Team as an outpatient basis. HOSPITAL COURSE: An 82-year-old female who went to see Wound Care Team where she was found with hypoglycemia and she was directed to ER. She was found with a right lower extremity cellulitis with a wound. While in hospital we admitted to medical floor. We treated her with Rocephin and vancomycin. We consulted Dr. Mills because we were suspicious for stasis dermatitis rather than cellulitis. Dr. Mills recommended to continue antibiotic therapy and on discharge we changed to Keflex. She will need wound care as an outpatient basis and she will need prophylactic antibiotic therapy if needed. I advised this patient to follow up with Dr. Mills for her chronic lower extremity stasis dermatitis, plus/minus cellulitis. She will need skin care. I also advised her to continue with penicillin VK which she can get prescription from either Dr. Mills' office or primary care physician after she finished Keflex. While in hospital, the patient was also demanding to see Dr. Lynch and that is why we put a consult for him as well and Dr. Lynch saw this patient. This patient has a severe aortic stenosis and she will require a transcutaneous aortic valve replacement when medically stable and that is why I advised this patient to follow up with Dr. Lynch on an outpatient basis. This patient has chronic pain disorder and she is following with Pain Clinic as an outpatient basis. While in the hospital, we continued her pain control with fentanyl as well as oral pain medication with tramadol and Tylenol Extra Strength. With that her pain mostly remains controlled. This patient was also demanding for wound care physician to see, but I think she does not need that part while in the hospital. I tried to call Dr. Melanie Whitehead to see her, but still unsuccessful. The patient has wound care team physician at the [facility] and she can continue to follow up with them as well. This patient is medically stable. I have nothing to do in hospital at this point. The patient is completely stable for discharge. I sent a new antibiotic prescription to her pharmacy. The patient is seen and examined at bedside today. Please see my progress note from today for further details. MTDD
--- NOTE | 2018-02-28 12:35 | PQF ---
CLINICAL DOCUMENTATION IMPROVEMENT CLARIFICATION FORM: ICD-10 Updated PLEASE DO AN ADDENDUM TO THE PROGRESS NOTE WITH ANY DOCUMENTATION UPDATES OR ADDITIONS AND CARRY THROUGH TO DC SUMMARY. THANK YOU. DATE: 02/28 ATTN: DR. ROGER BEARDEN Please exercise your independent, professional judgment in responding to the clarification form. Clinical indicators are provided on the bottom of this form for your review. Please check appropriate box(s): CHRONIC DIASTOLIC HEART FAILURE ACUITY [ ] Acute on Chronic [ x ] Chronic [ ] Other diagnosis [ ] Unable to determine For continuity of documentation, please document condition throughout progress notes and discharge summary. Thank You. CLINICAL INDICATORS - SIGNS / SYMPTOMS / LABS PHYSICIAN H&P DOCUMENTATION 02/24: ASSESSMENT/PLAN: 10) CHRONIC DIASTOLIC HF. CURRENTLY, PATIENT APPEARS TO BE EUVOLEMIC. CONTINUE TORSEMIDE BID CARDIOLOGY CONSULT 02/25: PHYSICAL EXAM: EXTREMITIES: MODERATE EDEMA. ASSESSMENT: 1) CHF, DIASTOLIC; PLAN: 3) WE WILL CHANGED TO IV LASIX, PROBABLY WILL NEED TO BE OVER THE WEEKEND ATTENDING PN 02/25 -: CHRONIC DIASTOLIC CHF RISKS: DIASTOLIC CHF CKD HTN TREATMENTS: IV LASIX (02/26 - PRESENT) CARDIOLOGY CONSULT THANK YOU! Rosie (This form is maintained as a part of the permanent medical record) 2014 [employer]. All Rights Reserved Rosie Tillman RN, BSN [email or web address] Office: [phone] [email or web address]
--- NOTE | 2018-02-28 12:45 | PQF ---
CLINICAL DOCUMENTATION IMPROVEMENT CLARIFICATION FORM: ICD-10 Updated PLEASE DO AN ADDENDUM TO THE PROGRESS NOTE WITH ANY DOCUMENTATION UPDATES OR ADDITIONS AND CARRY THROUGH TO DC SUMMARY. THANK YOU. DATE: 02/28 ATTN: DR. ROGER BEARDEN Please exercise your independent, professional judgment in responding to the clarification form. Clinical indicators are provided on the bottom of this form for your review. Please check appropriate box(s) to clarify if the following diagnosis has been ruled in or ruled out: SEPSIS [ x ] Ruled in diagnosis [ ] Continue to treat [ x ] Resolved [ ] Ruled out diagnosis [ ] Other diagnosis [ ] Unable to determine For continuity of documentation, please document condition throughout progress notes and discharge summary. Thank You. CLINICAL INDICATORS - SIGNS / SYMPTOMS / LABS ER PHYSICIAN FINAL DIAGNOSES 02/24: SEPSIS, B LE CELLULITIS PHYSICIAN H&P DOCUMENTATION 02/24: ASSESSMENT/PLAN: 3) R LE CELLULITIS WITH SEPSIS. SHE HAS TENDERNESS & WARMTH. ...WE WILL EMPIRICALLY START ROCEPHIN & VANCOMYCIN; 4) LACTIC ACIDOSIS, LIKELY D/T SEPSIS/HYPOGLYCEMIA NO FURTHER MENTION OF SEPSIS TO DATE WBC: 13.9 (ON ADMIT, 02/24) LACTIC ACID: 4.7 (ON ADMIT, 02/24) RISK FACTORS: CELLULITIS LACTIC ACIDOSIS TREATMENT: IV ANTIBIOTICS (ROCEPHIN & VANCOMYCIN 02/24 - PRESENT) INFECTIOUS DX CONSULT THANK YOU! Rosie (This form is maintained as a part of the permanent medical record) 2014 [employer]. All Rights Reserved Rosie Tillman RN, BSN [email or web address] Office: [phone] [facility]
[2018-02-28] MEDS ORDERED: cefTRIAXone\\ROCEPHIN 1 GM, Admixture Fee 1 EACH in Sodium Chloride 0.9% 100 ML IVPB SCH (18:00)
--- NOTE | 2018-03-01 07:48 | PRG ---
DATE OF SERVICE: 03/10/2018 SUBJECTIVE: Ms. Ivory is doing okay. No chest pain or shortness of breath currently. OBJECTIVE: VITAL SIGNS: The blood pressure 136/60, pulse 70
== END 2018-02-28 15:36 | disposition home health service (06) | DRG 872 ==
LOC: ERS 11:06 → T4-B 14:27
PROVIDERS: ADMIT Internal Medicine; ATTEND Internal Medicine
DX: A41.9 Sepsis, unspecified organism (principal); L03.115 Cellulitis of right lower limb; E87.2 Acidosis; I13.0 Hypertensive heart and chronic kidney disease with heart failure and stage 1 through stage 4 chronic kidney disease, or unspecified chronic kidney disease; I50.32 Chronic diastolic (congestive) heart failure; E11.649 Type 2 diabetes mellitus with hypoglycemia without coma; I35.0 Nonrheumatic aortic (valve) stenosis; E87.6 Hypokalemia; E11.22 Type 2 diabetes mellitus with diabetic chronic kidney disease; N18.3 Chronic kidney disease, stage 3 (moderate); I48.0 Paroxysmal atrial fibrillation; E03.9 Hypothyroidism, unspecified; F41.9 Anxiety disorder, unspecified; F32.9 Major depressive disorder, single episode, unspecified; E11.42 Type 2 diabetes mellitus with diabetic polyneuropathy; I87.2 Venous insufficiency (chronic) (peripheral); K21.9 Gastro-esophageal reflux disease without esophagitis; E78.5 Hyperlipidemia, unspecified; I25.10 Atherosclerotic heart disease of native coronary artery without angina pectoris; G89.29 Other chronic pain; M54.5 Low back pain; E66.9 Obesity, unspecified; Z68.28 Body mass index [BMI] 28.0-28.9, adult; Z88.5 Allergy status to narcotic agent; Z79.82 Long term (current) use of aspirin; Z79.4 Long term (current) use of insulin; Z79.899 Other long term (current) drug therapy
CPT/HCPCS: 36415; 36416; 80048; 80053; 80202; 81003; 81015; 83605; 85025; 87040; 93005; 96361; 96365; 96366; 96368; 96375; G8978-GP-CI; G8979-GP-CI; G8980-GP-CI; G8987-GO-CI; G8988-GO-CI; G8989-GO-CI; J0696; J1650; J1940; J2270; J3010; J3370; J3480; J7050; J7506; Q0162

== ENCOUNTER 2018-03-09 17:57 | Inpatient (IN) | payer MEDICARE, BC ==
[2018-03-09] MEDS ORDERED: Piperacillin/Tazobactam 4.5 GM VIAL ONE (18:49)
[2018-03-09 18:57] LABS: #Lymphocytes 2.4 thou/uL (1.20-3.40); #Monocytes 0.9 thou/uL (0.11-0.59); %Basophils 0.2 % (0.0-1.0); %Eosinophils 0.2 % (0.0-10.0); %Lymphocytes 19.5 % (21.0-51.0); %Monocytes 7.2 % (0.0-10.0); %Neutrophils 72.9 % (42.0-75.0); Hemoglobin 11.9 g/dL (12.0-16.0); Mean Corpuscular HGB CONC 33.6 g/dL (32.0-36.0); Mean Corpuscular Hemoglobin 30.2 pg (27.0-31.0); Mean Corpuscular Volume 89.8 fL (78.0-98.0); Mean Platelet Volume 6.9 fL (7.4-10.4); Platelet Count 279 thou/uL (130-400); RBC Distribution Width 14.4 % (11.5-14.5); Red Blood Cell (RBC) Count 3.94 mill/uL (4.20-5.40); White Blood Cell (WBC) Count 12.3 thou/uL (4.8-10.8)
--- NOTE | 2018-03-09 19:08 | RAD ---
SINGLE VIEW OF THE CHEST: 03/09/18 COMPARISON: 02/04/18 HISTORY: Chest pain. FINDINGS: Single view of the chest shows an enlarged but stable cardiomediastinal silhouette. Increased interst itial lung markings are present. There is no evidence of consolidation, mass, or pleural effusion. De generative changes are seen in the spine. A cardiac monitoring device projects over the left chest wa ll. IMPRESSION: Cardiomegaly without evidence of acute cardiopulmonary disease. POS: C
[2018-03-09 19:22] LABS: CKMB 2.8 ng/mL (0-6.6); Troponin I 0.025 ng/mL (< 0.028)
[2018-03-09] MEDS ORDERED: traMADol HCl 50 MG TAB ONE (19:27)
[2018-03-09] MEDS ORDERED: Acetaminophen 500 MG TAB ONE (19:28)
[2018-03-09 20:11] LABS: ALT (SGPT) 13 U/L (8-55); AST (SGOT) 15 U/L (5-34); Albumin 3.7 g/dL (3.4-4.8); Alkaline Phosphatase 79 U/L (40-150); Anion Gap 17 mmol/L (10-20); BUN (Urea Nitrogen) 98 mg/dL (9.8-20.1); Bilirubin, Total 0.4 mg/dL (0.2-1.2); CRP (Inflammatory) 0.83 mg/dL (= or < 0.5); Calc. Creatinine Clearance 0 mL/min (70-130); Calcium 9.5 mg/dL (7.8-10.44); Carbon Dioxide 31 mmol/L (23-31); Chloride 93 mmol/L (98-107); Estimated GFR-MDRD 24; Glucose 104 mg/dL (83-110); Potassium 3.1 mmol/L (3.5-5.1); Protein, Total 6.7 g/dL (6.0-8.3); Sodium 138 mmol/L (136-145)
[2018-03-09] MEDS ORDERED: Potassium Chloride 20 MEQ TAB ONE (20:54)
[2018-03-09 22:07] LABS: Bilirubin Negative (Negative); Blood, Urine Negative (Negative); Clarity CLEAR (Clear); Glucose, Urine (Dipstick) Negative (Negative); Leukocyte Moderate (Negative); Nitrite Negative (Negative); Protein, Urine (Dipstick) Negative (Neg-Trace); Specific Gravity, Urine 1.016 (1.002-1.036); Urobilinogen 0.2 mg/dL (0.2-1.0)
[2018-03-09 22:09] LABS: Bacteria/HPF None Seen HPF (None Seen); Hyaline Casts/LPF 0-3 HYALINE CAST LPF (0-3 Hyaline); Pathc Cast-AUWi Flag 0.29 (0-2.49); RBC/HPF 0-3 HPF (0-3); Squamous Epithelial 0-3 HPF (0-3)
[2018-03-09] MEDS ORDERED: Ondansetron HCl/PF 4 MG/2 ML Vial IVP PRN (22:16)
[2018-03-09] MEDS ORDERED: Ondansetron ODT 4 MG TAB SL PRN (22:16)
[2018-03-09 22:20] VITALS: BMI 29.1
[2018-03-09 22:51] LABS: Lactic Acid 2.2 mmol/L (0.5-2.2)
[2018-03-10] MEDS: Piperacillin/Tazobactam 3.375 GM in Sodium Chloride 0.9% 100 ML IVPB SCH ×2 (05:00→11:24)
[2018-03-10] MEDS: Levothyroxine 150 MCG TAB PO SCH (05:00)
[2018-03-10 05:28] LABS: #Basophils 0.1 thou/uL (0.0-0.2); #Eosinphils 0.1 thou/uL (0.0-0.7); #Lymphocytes 3.3 thou/uL (1.20-3.40); #Neutrophils 7.6 thou/uL (1.40-6.50); %Basophils 0.5 % (0.0-1.0); %Eosinophils 0.6 % (0.0-10.0); %Lymphocytes 27.5 % (21.0-51.0); %Monocytes 8.1 % (0.0-10.0); %Neutrophils 63.3 % (42.0-75.0); Hemoglobin 11.8 g/dL (12.0-16.0); Mean Corpuscular HGB CONC 31.3 g/dL (32.0-36.0); Mean Corpuscular Hemoglobin 28.8 pg (27.0-31.0); Mean Platelet Volume 7.1 fL (7.4-10.4); Platelet Count 258 thou/uL (130-400); RBC Distribution Width 14.6 % (11.5-14.5)
[2018-03-10 05:51] LABS: Anion Gap 14 mmol/L (10-20); BUN (Urea Nitrogen) 89 mg/dL (9.8-20.1); Calc. Creatinine Clearance 34 mL/min (70-130); Calcium 10.2 mg/dL (7.8-10.44); Carbon Dioxide 34 mmol/L (23-31); Chloride 96 mmol/L (98-107); Estimated GFR-MDRD 32; Glucose 125 mg/dL (83-110); Potassium 3.6 mmol/L (3.5-5.1); Sodium 140 mmol/L (136-145)
[2018-03-10] MEDS ORDERED: Metolazone 5 MG TAB PO SCH (08:00)
[2018-03-10] MEDS: traMADol HCl 50 MG TAB PO PRN ×2 (08:52→20:28)
[2018-03-10] MEDS ORDERED: Torsemide 20 MG TAB PO SCH (09:00)
[2018-03-10] MEDS: Isosorbide Dinitrate 20 MG TAB PO SCH (09:32)
[2018-03-10] MEDS: Amiodarone 200 MG TAB PO SCH (09:33)
[2018-03-10] MEDS: Aspirin 81 mg Enteric Coated Tablet PO SCH (09:33)
[2018-03-10] MEDS: Carvedilol 3.125 MG TAB PO SCH ×2 (09:33→17:34)
[2018-03-10] MEDS: Pantoprazole 40 MG GRANULES PACKET PO SCH (09:33)
[2018-03-10] MEDS: Gabapentin 300 MG CAP PO SCH ×3 (09:33→20:27)
[2018-03-10] MEDS: Lubiprostone 24 MCG CAP PO SCH (09:34)
[2018-03-10] MEDS: predniSONE 20 MG TAB PO SCH (09:34)
[2018-03-10] MEDS: Enoxaparin Sodium 30 MG/0.3 ML SYRINGE SC SCH (09:34)
[2018-03-10] MEDS: Sodium Chloride 0.45% 1,000 ML IV SCH ×2 (11:12→23:44)
--- NOTE | 2018-03-10 13:19 | CON ---
DATE OF CONSULTATION: 03/10/2018 REASON FOR CONSULTATION: Possible cellulitis. HISTORY OF PRESENT ILLNESS: This is an 82-year-old, whom I had recently seen, with a history of type 2 diabetes, venous insufficiency, obesity, and chronic stasis dermatitis. She was admitted just a few days ago with a possible cellulitis. Our assessment is that there was not compelling evidence to suggest persistence of cellulitis, and the findings could be related to stasis dermatitis associated with venous insufficiency. She did have neutrophilia, and we felt compelled to continue antimicrobial therapy, which was accomplished. She continued with wound care, and yesterday, she was referred for admission from the Wound Care Clinic, because of elevated white cell count. The actual patient's symptoms refer more to this pain in the left side of her chest, wrapping around the infra-axillary region anteriorly with marked tenderness. 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 She also has pain in the right lower extremity, but she does have pruritus as well. No headaches, no visual symptoms, sore throat, odynophagia, dysphagia, no dyspnea, no cough or sputum production. No abdominal pain. No genitourinary symptoms, no diarrhea. PAST MEDICAL HISTORY: Coronary artery disease, CHF, type 2 diabetes, herpes zoster with postherpetic neuralgia, hyperlipidemia, hypertension, also venous insufficiency of lower extremity with chronic stasis dermatitis. PAST SURGICAL HISTORY: Cholecystectomy, hysterectomy, left knee replacement. SOCIAL HISTORY: Never smoker. ALLERGIES: HYDROCODONE and the itching after taking NORCO. MEDICATIONS: Potassium, prednisone 10 mg daily, aspirin, Lipitor, amiodarone, Amitiza, metolazone, Dulcolax, vitamin D, Coreg, Synthroid, Ativan, gabapentin, isosorbide, pantoprazole, torsemide, Nystop. FAMILY HISTORY: Noncontributory. PHYSICAL EXAMINATION: VITAL SIGNS: T-max of 98.3, blood pressure 107/62, pulse 69, respirations 18, O2 sat 99%. SKIN EXAM: Shows the areas of stasis dermatitis in the lower extremities, pretty much similar to what they had been before. The right side is more extensive and has exfoliation associated with it. The patient feels a sensation of itching in the skin, when I rubbed the skin area, rather than pain. Left side is totally painless. She has a presacral area of ulceration measuring about 0.5 cm with some hyperkeratosis. There is maceration of the skin of the intertriginous area in the vulvar region. She has an area of ulceration in the anterior leg of the left side, which is very shallow. There is a linear fissure in the left first toe with no evidence of penetration towards bone, measuring about 2 cm, intertriginous maceration in the groin noticed. Peripheral IV access. The patient is voiding spontaneously in the toilet. No lymphadenopathy. HEENT: Ocular movements conjugate. Oral cavity with no significant findings. NECK: Supple, no jugular venous distention. LUNGS: Symmetric clear breath sounds. CHEST: The patient has marked tenderness on palpation of the left lateral chest region, right around the infra-axillary area, radiating towards the anterior and posterior segments. It is not clear if this is a neuropathic pain with hyperalgesia or if it is a rib cage pain. HEART: S1 and S2, regular rate. No S3 or S4. ABDOMEN: No ascites. No bladder distention. EXTREMITIES: No joint inflammatory activity. Pulses 1+ in dorsalis pedis. She is able to move extremities on command. She has some areas of bruising in the upper extremities. NEUROLOGIC: She is awake, oriented, follows commands. LABORATORY DATA: White cell count was 12.3 and now 12.0, hemoglobin 11.9, MCV 89, platelets 279, 72% neutrophils, 19% lymphocytes. Total neutrophil count is elevated at 9000. Chemistry with a normal liver profile. Creatinine was up to 1.96, which is higher than her baseline in 01/2018. Urinalysis with 11-20 wbcs. Microbiology with urine and blood cultures pending at this time. IMAGING STUDIES: We have shoulder scapulae x-ray, which were pending. Chest x- ray: Cardiomegaly with no other findings of significance. ASSESSMENT AND DISCUSSION: Type 2 diabetes mellitus; coronary artery disease; venous insufficiency; stasis dermatitis; mild neutrophilia; pain in the left chest wall region, left side. DISCUSSION: The main symptom that she presents at this time is this chest wall pain. This could be either related to the neuropathic pain or radiculopathic pain associated with some thoracic spine process or rib cage process. Will need to be evaluated with imaging studies starting with the rib cage films. May need imaging of the spine, specifically thoracic spine. Chest x-ray was not helpful. Regarding the right leg and left leg, I mean, the changes are not different than when I saw her the last time, and I am more likely to ascribe those changes to stasis dermatitis rather than cellulitis. Probably, I would withhold antimicrobial therapy at this point in time and work up her chest pain and follow up the white cell counts. She does have a decrease in renal function , it is not clear to me the reason for that at this point in time, but may need to evaluate her kidney ultrasound. I believe she has been identified with hypoglycemia in the recent past and one concern is that she might be displaying recurrence of the hypoglycemia that goes undetected and that can be associated with mild elevation in neutrophil counts. Will have to continue antimicrobials until cultures are resulted and we clarify the above issues. PATTI
--- NOTE | 2018-03-10 13:36 | RAD ---
THREE VIEWS OF THE LEFT SHOULDER: INDICATION: Concern for scapula fracture. FINDINGS: There is a mildly displaced vertically oriented left scapular body fracture. There are multiple left -sided rib fractures. There is a nonspecific fracture involving the left posterolateral 3rd and 4th ribs. There is an anterolateral left 5th rib fracture. No visible pneumothorax is evident. IMPRESSION: 1. Vertically oriented mildly displaced left scapular body fracture. 2. Left 3rd through 5th rib fractures. POS: [facility]
--- NOTE | 2018-03-10 13:39 | RAD ---
LEFT SHOULDER 3 VIEWS: Date: 03/10/18 INDICATION: Pain, fracture. FINDINGS: There is no evidence of acute fracture or dislocation at the left shoulder. 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 There is incidental note if an implantable loop recorder overlying the chest, as well as granulom atous calcification. IMPRESSION: No acute osseous abnormality of the left shoulder. POS: [facility]
[2018-03-10] MEDS ORDERED: Lidocaine Patch Removal 1 EACH TOP SCH (15:00)
[2018-03-10] MEDS ORDERED: Lidocaine 5% Patch TD SCH (15:30)
[2018-03-10] MEDS: Lidocaine 5% Patch TD SCH (15:45)
--- NOTE | 2018-03-10 18:26 | HP ---
REASON FOR ADMISSION: Right lower extremity cellulitis, left shoulder and scapular pain for further workup. HISTORY OF PRESENT ILLNESS: The patient gives history of being told by her wound care physician, Dr. Lizbeth Machado that her blood was infected from her wounds in the right lower extremity and need to go to the emergency room. The wound care nurse called her at 5:00 p.m. yesterday and the patient made it to the emergency room yesterday evening. The patient currently complains of left shoulder and left scapular area pain. She says she cannot do a proper abduction with her left upper extremity. This is also bothering her to ambulate and hold onto her walker. She states she has had nearly three admissions for her right lower extremity cellulitis. She has finished a course of vancomycin, then switched over to Keflex and has taken it for 9 days and the plan was to start her on penicillin for 90 days or so after the course of Keflex. Meanwhile, the patient was started on ciprofloxacin from yesterday by her wound care physician. We will try to obtain the culture results if any from Dr. Lizbeth Machado's office. Has no complaints of palpitation, PND or orthopnea. No complaints of fever. 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 PERSONAL HISTORY: Does not abuse alcohol or drugs. No history of smoking. She lives by herself. FAMILY HISTORY: Two children in their 40s, daughter of breast cancer. Son at the age of 47 years from colon cancer. Has multiple nephews and nieces who are in close touch with her. CURRENT MEDICATIONS: The patient is on amiodarone 200 mg p.o. daily, aspirin 81 mg p.o. daily, Lipitor 10 mg p.o. at bedtime, Coreg 3.125 mg p.o. twice daily. The patient is still on Keflex 500 three times daily; vitamin D3 5000 units p.o. daily; gabapentin 600 mg p.o. 3 times daily; insulin 75/25, she takes 45 units subq q.a.m.; isosorbide dinitrate 10 mg p.o. daily; levothyroxine 150 mg p.o. daily; Ativan 0.5 mg p.o. at bedtime; Amitiza 24 mcg p.o. daily; metolazone 5 mg on weekends , 2 times a week; penicillin VK to be started from tomorrow; Protonix 40 mg p.o. daily; prednisone 10 mg daily for arthritis; Demadex 20 mg p.o. twice daily; Ultram p.r.n. for pain; potassium chloride 20 mEq p.o. daily. ALLERGIES: HYDROCODONE. CODE STATUS: FULL. REVIEW OF SYSTEMS: The following complete review of systems was negative, unless otherwise mentioned in the HPI or below: Constitutional: Weight loss or gain, ability to conduct usual activities. Skin: Rash, itching. Eyes: Double vision, pain. ENT/Mouth: Nose bleeding, neck stiffness, pain, tenderness. Cardiovascular: Palpitations, dyspnea on exertion, orthopnea. Respiratory: Shortness of breath, wheezing, cough, hemoptysis, fever or night sweats. Gastrointestinal: Poor appetite, abdominal pain, heartburn, nausea, vomiting, constipation, or diarrhea. Genitourinary: Urgency, frequency, dysuria, nocturia. Musculoskeletal: Pain, swelling. Neurologic/Psychiatric: Anxiety, depression. Allergy/Immunologic: Skin rash, bleeding tendency. PHYSICAL EXAMINATION: GENERAL: The patient is an 82-year-old female who is currently not in any acute distress. VITAL SIGNS: Blood pressure 141/61, pulse 76 per minute, respiratory rate 20 per minute, temperature 98.2 degrees Fahrenheit, saturating 95% on room air. NECK: Supple, no elevated JVD. HEENT: Extraocular muscles intact. Pupils reacting to light. Oral cavity, mucous membranes are moist. No exudates or congestion. CARDIOVASCULAR: S1, S2 heard. Regular rhythm. RESPIRATORY: Air entry 1+ bilaterally. No rales or rhonchi. ABDOMEN: Soft, bowel sounds heard. No tenderness, rigidity or guarding. EXTREMITIES: The patient has tenderness over scapular area, both on the scapular blade and the inferior angle of the scapula. Pain is more towards the lateral border of the scapula. Has no active lesions of herpes zoster seen. No peripheral edema or calf tenderness. The patient's right lower extremity is in a dressing. Left leg also has some erythema likely these are due to chronic venous stasis. VASCULAR: Peripheral pulses 1+ bilateral. No ischemic ulcers noted set. CENTRAL NERVOUS SYSTEM: No gross focal deficits noted. The patient is alert, awake, oriented well. PSYCHIATRIC: The patient's mood is euthymic. No hallucinations or delusions. LABORATORY AND X-RAY FINDINGS: White count of 12, H&H 11 and 37, platelet count 258 with 63% neutrophils, MCV is 92, BUN 89, creatinine 1.56, serum bicarbonate 34. Three views of left shoulder done shows vertically oriented mildly displaced left scapular body fracture, left third through fifth rib fractures. Chest x-ray done shows cardiomegaly with no acute cardiopulmonary abnormalities. Left shoulder 3-view x-rays done shows no acute osseous abnormality of the shoulder. EKG done shows sinus rhythm at 67 beats per minute. There is Q-wave seen in V1 and V2. CLINICAL IMPRESSION AND PLAN: The patient will be admitted to medical floor for recurrent wound flareups in both lower extremities, likely due to venous stasis and dermatitis. She is already on Keflex and will continue her on penicillin VK as planned before. In the ER, she was started on vancomycin and Zosyn. We will hold off on this for now. The patient is on chronic steroids and will continue that for now. She has sustained left scapular body fracture and will obtain orthopedic surgery consultation. I am not sure if anything active will be done given her multiple medical issues for the same. She will be on a lidocaine patch over the area for symptom relief. We will continue her on aspirin, Lipitor, amiodarone, Coreg, gabapentin, levothyroxine, Isordil, Amitiza, Protonix, Ultram as before. Morphine for breakthrough pain. Dr. Mills for Infectious Disease has already evaluated the patient on the floor and has recommended not to continue with IV antibiotics and to continue with tapering dose of Keflex and to start on penicillin VK from tomorrow. We will also try to mobilize her early with physical therapy. PATTI
--- NOTE | 2018-03-10 18:48 | CON ---
DATE OF CONSULTATION: 03/10/2018 ORTHOPEDIC CONSULTATION REASON FOR CONSULTATION: Left shoulder pain. BRIEF HISTORY OF PRESENT ILLNESS: Patient is an 82-year-old lady who I know from a prior intertrocha nteric femur fracture treated with open reduction and internal fixation. The patient is now admitted with her history of type 2 diabetes, venous insufficiency, obesity and chronic stasis dermatitis for possible cellulitis of her right lower extremity. She has seen Dr. Will Mills and has also seen Wound Care Service. She had a secondary complaint of left shoulder blade pain. Workup included x-ra ys of the shoulder as well as followup x-ray of the scapula and this has revealed a vertical fracture of the body of the scapula without displacement. As such, orthopedic consultation requested. PAST MEDICAL HISTORY: Remarkable for coronary artery disease, congestive heart failure, postherpetic neuralgia, hypertension, venous insufficiency with chronic stasis dermatitis. PAST SURGICAL HISTORY: Includes cholecystectomy, hysterectomy, left knee replacement as well as righ t intertrochanteric femur fracture with open reduction and internal fixation. ALLERGIES: HYDROCODONE. MEDICATIONS: Include prednisone, aspirin, Lipitor, amiodarone, metolazone, Dulcolax, Coreg, Synthroi d, Ativan, gabapentin and pantoprazole. SOCIAL HISTORY: Nonsmoker, does not drink alcohol, denies recreational drug use. FAMILY HISTORY: Noncontributory. REVIEW OF SYSTEMS: Denies recent fevers, chills or sweats. She does have chronic shortness of breat h and occasional cough. She does have some stocking dysesthesias distally. PHYSICAL EXAMINATION: VITAL SIGNS: Temperature 97.4, heart rate of 69, respiratory rate of 18, and blood pressure of 137/7 2. HEENT: Atraumatic, normocephalic. Breathing is unlabored. CHEST: Nontender to direct palpation anteriorly. EXTREMITIES: Remarkable for a right upper extremity, atraumatic. Left upper extremity with pain ref erred to the shoulder blade. Palpation shows point tenderness to palpation over the body of the left scapula, but without obvious glenohumeral involvement. This scapular body pain does tend to radiate around the anterior chest wall. With range of motion, I do not appreciate significant crepitation b ut motion is limited secondary to this pain. The elbow, wrist and hand appear atraumatic. She is mo ving her fingers normally. Right lower extremity remarkable for lateral chronic venous stasis ulcer with edema of the lower extremity and kind of woody induration of the surrounding skin consistent wit h her chronic venous stasis disease. LABORATORY DATA: White count of 12.0, hematocrit of 37.7 and 258,000 platelets. IMAGING DATA: X-rays as per history of present illness. ASSESSMENT: An 82-year-old lady with history of right leg chronic venous stasis disease and more rec ently onset of left scapular pain with radiographic evidence of scapular fracture with unknown date o f onset. PLAN: Today, I discussed with Mrs. Ivory that nonsurgical management is appropriate that we would t reat this conservatively and expectantly. We have discussed the potential merits of a sling; however , she does not want to take away use of her left hand which is really her dominant hand at this time. As such, benign neglect without a sling is appropriate. She should probably try to avoid overhead activities as this will result in pain, but would not result in any further damage of the fractured s capula. Patient appears comfortable with our discussion and plan. We will follow her expectantly wh ile she is in the hospital and then see her back in the office for followup x-ray in approximately 3- 4 weeks.
[2018-03-10] MEDS ORDERED: Vancomycin HCl 750 MG in Sodium Chloride 0.9% 250 ML 250 ML IVPB SCH (20:00)
[2018-03-10] MEDS: Lorazepam 0.5 MG TAB PO SCH (20:28)
[2018-03-10] MEDS: Atorvastatin Calcium 10 MG TAB PO SCH (20:28)
[2018-03-10] MEDS: Ondansetron ODT 4 MG TAB PO PRN (20:28)
[2018-03-10] MEDS: Acetaminophen 325 MG TAB PO PRN (20:28)
[2018-03-10] MEDS ORDERED: Dextrose 5% in Water 1,000 ML IV PRN (21:07)
[2018-03-10] MEDS ORDERED: Dextrose 50% Abboject 50 ML SYRINGE IVP PRN (21:07)
[2018-03-10] MEDS: HumaLOG 300 UNITS/3 ML VIAL SC PRN (22:00)
[2018-03-11] MEDS: Acetaminophen 325 MG TAB PO PRN ×4 (05:17→22:55)
[2018-03-11] MEDS: Levothyroxine 150 MCG TAB PO SCH (05:17)
[2018-03-11] MEDS: Lubiprostone 24 MCG CAP PO SCH (08:36)
[2018-03-11] MEDS: Aspirin 81 mg Enteric Coated Tablet PO SCH (08:36)
[2018-03-11] MEDS: Amiodarone 200 MG TAB PO SCH (08:36)
[2018-03-11] MEDS: Gabapentin 300 MG CAP PO SCH ×3 (08:38→21:31)
[2018-03-11] MEDS: predniSONE 20 MG TAB PO SCH (08:39)
[2018-03-11] MEDS: Carvedilol 3.125 MG TAB PO SCH ×2 (08:39→17:09)
[2018-03-11] MEDS: Pantoprazole 40 MG GRANULES PACKET PO SCH (08:43)
[2018-03-11] MEDS: Enoxaparin Sodium 30 MG/0.3 ML SYRINGE SC SCH (08:43)
[2018-03-11] MEDS: Ondansetron ODT 4 MG TAB PO PRN ×2 (09:05→17:11)
[2018-03-11] MEDS ORDERED: Potassium Chloride 20 MEQ TAB PO SCH (09:30)
[2018-03-11] MEDS: Isosorbide Dinitrate 20 MG TAB PO SCH (09:36)
[2018-03-11] MEDS: Potassium Chloride 20 MEQ TAB PO SCH (09:36)
[2018-03-11] MEDS: Lidocaine 5% Patch TD SCH (09:48)
[2018-03-11 10:14] LABS: #Basophils 0.1 thou/uL (0.0-0.2); #Eosinphils 0.1 thou/uL (0.0-0.7); #Lymphocytes 3.2 thou/uL (1.20-3.40); #Monocytes 0.9 thou/uL (0.11-0.59); #Neutrophils 6.2 thou/uL (1.40-6.50); %Basophils 0.8 % (0.0-1.0); %Eosinophils 0.7 % (0.0-10.0); %Lymphocytes 30.3 % (21.0-51.0); %Monocytes 8.5 % (0.0-10.0); %Neutrophils 59.8 % (42.0-75.0); Hemoglobin 11.5 g/dL (12.0-16.0); Mean Corpuscular HGB CONC 32.6 g/dL (32.0-36.0); Mean Corpuscular Hemoglobin 29.9 pg (27.0-31.0); Mean Corpuscular Volume 91.9 fL (78.0-98.0); Mean Platelet Volume 6.3 fL (7.4-10.4); Platelet Count 265 thou/uL (130-400); RBC Distribution Width 14.4 % (11.5-14.5); Red Blood Cell (RBC) Count 3.85 mill/uL (4.20-5.40); White Blood Cell (WBC) Count 10.4 thou/uL (4.8-10.8)
[2018-03-11 10:34] LABS: Anion Gap 14 mmol/L (10-20); BUN (Urea Nitrogen) 59 mg/dL (9.8-20.1); Calc. Creatinine Clearance 36 mL/min (70-130); Calcium 10.1 mg/dL (7.8-10.44); Carbon Dioxide 34 mmol/L (23-31); Chloride 96 mmol/L (98-107); Estimated GFR-MDRD 34; Glucose 252 mg/dL (83-110); Potassium 3.8 mmol/L (3.5-5.1); Sodium 140 mmol/L (136-145)
[2018-03-11] MEDS: HumaLOG 300 UNITS/3 ML VIAL SC PRN ×3 (13:13→21:32)
--- NOTE | 2018-03-11 15:48 | PDOC.PN ---
- Subjective Encounter Start Date: 03/11/18 Encounter Start Time: 12:00 Subjective: c/o pain in her hand joints and left shoulder - Objective Resuscitation Status: Resuscitation Status FULL:Full Resuscitation MAR Reviewed: Yes Vital Signs & Weight: Vital Signs (12 hours) Temp Pulse Resp BP Pulse Ox 03/11/18 07:53 97.8 F 75 16 137/79 92 L 03/11/18 05:21 97.6 F 71 20 173/71 H 98 Weight Admit Weight 169 lb 14.4 oz Weight 169 lb 14.4 oz I&O: 03/10/18 03/11/18 03/12/18 06:59 06:59 06:59 Intake Total 1420 Balance 1420 Result Diagrams: 03/11/18 10:04 03/11/18 10:04 Additional Labs: Accuchecks 03/11/18 03/10/18 03/10/18 06:16 20:22 16:26 POC Glucose 178 H 307 H 358 H Phys Exam - Physical Examination HEENT: PERRLA, moist MMs Neck: no JVD, supple Respiratory: no wheezing, no rales Cardiovascular: RRR, no significant murmur Gastrointestinal: soft, non-tender, positive bowel sounds Musculoskeletal: pulses present right leg is wrapped, left leg has erythema Neurological: non-focal, moves all 4 limbs Psychiatric: A&O x 3 Dx/Plan (1) CKD (chronic kidney disease), stage III Code(s): N18.3 - CHRONIC KIDNEY DISEASE, STAGE 3 (MODERATE) Status: Chronic Comment: (2) Chronic diastolic congestive heart failure Code(s): I50.32 - CHRONIC DIASTOLIC (CONGESTIVE) HEART FAILURE Status: Chronic (3) Coronary artery disease Code(s): I25.10 - ATHSCL HEART DISEASE OF [place] CORONARY ARTERY W/O ANG PCTRS Status: Chronic Qualifiers: Coronary Disease-Associated Artery/Lesion type: [place] artery [place] vs. 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 use: with local intermodal truck driver use Diabetes mellitus complication status: with kidney complications Diabetes mellitus complication detail: with chronic kidney disease Chronic kidney disease stage : stage 3 (moderate) Qualified Code(s): E11.22 - Type 2 diabetes mellitus with diabetic chronic kidney disease; N18.3 - Chronic kidney disease, stage 3 ( moderate); N18.3 - Chronic kidney disease, stage 3 (moderate); N18.3 - Chronic kidney disease, stage 3 (moderate); Z79.4 - MCFP (current) use of insulin; Z79.4 - intermediate designer (current) use of insulin; Z79.4 - MCFP (current) use of insulin; Z79.4 - MCFP (current) use of insulin Comment: (5) Dyslipidemia Code(s): E78.5 - HYPERLIPIDEMIA, UNSPECIFIED Status: Chronic (6) GERD (gastroesophageal reflux disease) Code(s): K21.9 - GASTRO-ESOPHAGEAL REFLUX DISEASE WITHOUT ESOPHAGITIS Status: Chronic Qualifiers: Esophagitis presence: esophagitis presence not specified (7) Hypertension Code(s): I10 - ESSENTIAL (PRIMARY) HYPERTENSION Status: Chronic Qualifiers: Hypertension type: essential hypertension (8) Hypothyroidism Code(s): E03.9 - HYPOTHYROIDISM, UNSPECIFIED Status: Chronic Qualifiers: Comment: (9) Severe aortic stenosis by prior echocardiogram Code(s): I35.0 - NONRHEUMATIC AORTIC (VALVE) STENOSIS Status: Chronic (10) Stasis dermatitis of both legs Code(s): I83.11 - VARICOSE VEINS OF RIGHT LOWER EXTREMITY WITH INFLAMMATION; I83.12 - VARICOSE VEINS OF LEFT LOWER EXTREMITY WITH INFLAMMATION Status: Chronic (11) ANUM (acute kidney injury) Code(s): N17.9 - ACUTE KIDNEY FAILURE, UNSPECIFIED Status: Acute (12) Bacteremia due to Streptococcus Code(s): R78.81 - BACTEREMIA; B95.5 - UNSP STREPTOCOCCUS THE CAUSE OF DISEASES CLASSD ELSWHR Status: Acute (13) Scapular fracture Code(s): S42.109A - FRACTURE OF UNSP PART OF SCAPULA, UNSP SHOULDER, INIT Status: Acute Qualifiers: Encounter type: subsequent encounter Scapula location: body Fracture type : closed Fracture alignment: nondisplaced Laterality: left - Plan pen vk 250 bid based on renal dosing -: await final blood cs -: gentle iv hydration till am and dc, renal function almost at baseline -: lidocaine patch, ultram qid, morphine for breakthrough pain -: watch for resp depression * . Review of Systems - Medications/Allergies Allergies/Adverse Reactions: Allergies Allergy/AdvReac Type Severity Reaction Status Date / Time hydrocodone [From [place]] Allergy Verified 03/09/18 22:21 Medications: Current Medications Acetaminophen (Tylenol) 650 mg PO Q4H PRN PRN Reason: Headache/Fever or Pain Stop: 03/14/18 09:00 Last Admin: 03/11/18 09:36 Dose: 650 mg Amiodarone HCl (Cordarone) 200 mg PO DAILY [facility] Last Admin: 03/11/18 08:36 Dose: 200 mg Aspirin (Ecotrin) 81 mg PO DAILY [facility] Last Admin: 03/11/18 08:36 Dose: 81 mg Atorvastatin Calcium (Lipitor) 10 mg PO HS [facility] Last Admin: 03/10/18 20:28 Dose: 10 mg Carvedilol (Coreg) 3.125 mg PO BID-[facility] Last Admin: 03/11/18 08:39 Dose: 3.125 mg Cholecalciferol (Vitamin D3) 5,000 units PO DAILY [facility] Last Admin: 03/11/18 08:37 Dose: 5,000 units Dextrose/Water (Dextrose 50%) 25 gm IVP PRN PRN PRN Reason: HYPOGLYCEMIA PROTOCOL Enoxaparin Sodium (Lovenox) 30 mg SC 0900 [facility] Last Admin: 03/11/18 08:43 Dose: 30 mg Gabapentin (Neurontin) 600 mg PO TID [facility] Last Admin: 03/11/18 08:38 Dose: 600 mg Glucagon (Glucagon) 1 mg IM PRN PRN PRN Reason: HYPOGLYCEMIA PROTOCOL Sodium Chloride (1/2 Normal Saline) 1,000 mls @ 75 mls/hr IV .[id number] [facility] Last Admin: 03/10/18 23:44 Dose: 1,000 mls Dextrose/Water (D5w) 1,000 mls @ 0 mls/hr IV INF PRN; As Directed PRN Reason: HYPOGLYCEMIA PROTOCOL Insulin Human Isoph/Insulin Regular (Humulin 70/30) 30 units SC BID-[facility] Insulin Human Lispro (Humalog) 0 units SC .MILD SLIDING SCALE PRN; Protocol PRN Reason: MILD SLIDING SCALE Last Admin: 03/11/18 13:13 Dose: 3 unit Isosorbide Dinitrate (Isordil) 10 mg PO DAILY [facility] Last Admin: 03/11/18 09:36 Dose: 10 mg Levothyroxine Sodium (Synthroid) 150 mcg PO 0600 [facility] Last Admin: 03/11/18 05:17 Dose: 150 mcg Lidocaine (Lidoderm 5% Patch) 1 patch TD DAILY [facility] Last Admin: 03/11/18 09:48 Dose: 1 patch Lorazepam (Ativan) 0.5 mg PO HS [facility] Last Admin: 03/10/18 20:28 Dose: 0.5 mg Lubiprostone (Amitiza) 24 mcg PO DAILY [facility] Last Admin: 03/11/18 08:36 Dose: 24 mcg Miscellaneous Medication (Lidocaine Patch Removal) 1 each TOP ASDIR [facility] Morphine Sulfate (Morphine) 2 mg SLOW IVP Q6H PRN PRN Reason: Severe Pain (7-10) Ondansetron HCl (Zofran Odt) 4 mg PO Q8H PRN PRN Reason: Nausea Last Admin: 03/11/18 09:05 Dose: 4 mg Pantoprazole Sodium (Protonix) 40 mg PO DAILY [facility] Last Admin: 03/11/18 08:43 Dose: 40 mg Penicillin V Potassium (Penicillin V Potassium) 250 mg PO BID [facility] Potassium Chloride (K-Dur) 20 meq PO QAM-WM [facility] Last Admin: 03/11/18 09:36 Dose: 20 meq Prednisone (Prednisone) 10 mg PO QAM-WM [facility] Last Admin: 03/11/18 08:39 Dose: 10 mg Sodium Chloride (Flush - Normal Saline) 10 ml IVF Q12HR [facility] Last Admin: 03/11/18 11:31 Dose: Not Given Sodium Chloride (Flush - Normal Saline) 10 ml IVF PRN PRN PRN Reason: Saline Flush Tramadol HCl (Ultram) 50 mg PO QID PRN PRN Reason: Moderate Pain (4-6)
[2018-03-11] MEDS: traMADol HCl 50 MG TAB PO PRN ×2 (17:10→22:55)
[2018-03-11] MEDS: Sodium Chloride 0.45% 1,000 ML IV SCH (17:12)
[2018-03-11] MEDS: Insulin NPH/Reg Insulin Hm 300 UNITS/3 ML VIAL SC SCH (18:02)
[2018-03-11 20:27] VITALS: TEMP 98.1
[2018-03-11] MEDS: Atorvastatin Calcium 10 MG TAB PO SCH (21:31)
[2018-03-11] MEDS: Lorazepam 0.5 MG TAB PO SCH (21:32)
[2018-03-11] MEDS: Penicillin V Potassium 250 MG TAB PO SCH (21:32)
[2018-03-12] MEDS: Levothyroxine 150 MCG TAB PO SCH (05:00)
[2018-03-12] MEDS: traMADol HCl 50 MG TAB PO PRN ×2 (05:00→11:28)
[2018-03-12] MEDS: Acetaminophen 325 MG TAB PO PRN ×2 (05:01→11:28)
[2018-03-12] MEDS: Sodium Chloride 0.45% 1,000 ML IV SCH (05:09)
[2018-03-12 06:09] LABS: Anion Gap 13 mmol/L (10-20); BUN (Urea Nitrogen) 44 mg/dL (9.8-20.1); Calc. Creatinine Clearance 47 mL/min (70-130); Carbon Dioxide 33 mmol/L (23-31); Chloride 99 mmol/L (98-107); Estimated GFR-MDRD 47; Glucose 139 mg/dL (83-110); Potassium 3.7 mmol/L (3.5-5.1); Sodium 141 mmol/L (136-145)
[2018-03-12 07:56] VITALS: BP 152/81
[2018-03-12] MEDS: Lubiprostone 24 MCG CAP PO SCH (09:33)
[2018-03-12] MEDS: Penicillin V Potassium 250 MG TAB PO SCH (09:33)
[2018-03-12] MEDS: Pantoprazole 40 MG GRANULES PACKET PO SCH (09:33)
[2018-03-12] MEDS: Aspirin 81 mg Enteric Coated Tablet PO SCH (09:34)
[2018-03-12] MEDS: Amiodarone 200 MG TAB PO SCH (09:34)
[2018-03-12] MEDS: predniSONE 20 MG TAB PO SCH (09:34)
[2018-03-12] MEDS: Potassium Chloride 20 MEQ TAB PO SCH (09:34)
[2018-03-12] MEDS: Gabapentin 300 MG CAP PO SCH (09:34)
[2018-03-12] MEDS: Enoxaparin Sodium 30 MG/0.3 ML SYRINGE SC SCH (09:35)
[2018-03-12] MEDS: Isosorbide Dinitrate 20 MG TAB PO SCH (09:35)
[2018-03-12] MEDS: Insulin NPH/Reg Insulin Hm 300 UNITS/3 ML VIAL SC SCH (09:35)
[2018-03-12] MEDS: Carvedilol 3.125 MG TAB PO SCH (09:35)
[2018-03-12] MEDS: Lidocaine 5% Patch TD SCH (09:36)
[2018-03-12] MEDS ORDERED: Lidocaine 5% Patch TD SCH (11:15)
--- NOTE | 2018-03-12 12:46 | PDOC.PN ---
- Subjective Encounter Start Date: 03/12/18 Encounter Start Time: 10:30 Subjective: pain is better, no new complaints - Objective Resuscitation Status: Resuscitation Status FULL:Full Resuscitation MAR Reviewed: Yes Vital Signs & Weight: Vital Signs (12 hours) Temp Pulse Resp BP Pulse Ox 03/12/18 08:00 98.1 F 55 L 16 94 L 03/12/18 07:55 98.1 F 55 L 16 152/81 H 94 L Weight Admit Weight 169 lb 14.4 oz Weight 169 lb 14.4 oz I&O: 03/11/18 03/12/18 03/13/18 06:59 06:59 06:59 Intake Total 1420 825 Balance 1420 825 Result Diagrams: 03/11/18 10:04 03/12/18 04:30 Additional Labs: Accuchecks 03/12/18 03/11/18 03/11/18 11:16 21:33 16:43 POC Glucose 145 H 238 H 338 H 03/11/18 12:17 POC Glucose 210 H Phys Exam - Physical Examination HEENT: PERRLA, moist MMs Neck: no JVD, supple Respiratory: no wheezing, no rales Cardiovascular: RRR, no significant murmur Gastrointestinal: soft, non-tender, positive bowel sounds Musculoskeletal: pulses present, edema present Neurological: non-focal, moves all 4 limbs Psychiatric: normal affect, A&O x 3 Dx/Plan (1) ANUM (acute kidney injury) Code(s): N17.9 - ACUTE KIDNEY FAILURE, UNSPECIFIED Status: Acute (2) Scapular fracture Code(s): S42.109A - FRACTURE OF UNSP PART OF SCAPULA, UNSP SHOULDER, INIT Status: Acute Qualifiers: Encounter type: subsequent encounter Scapula location: body Fracture type : closed Fracture alignment: nondisplaced Laterality: left (3) Bacteremia due to Streptococcus Code(s): R78.81 - BACTEREMIA; B95.5 - UNSP STREPTOCOCCUS THE CAUSE OF DISEASES CLASSD ELSWHR Status: Ruled-out Comment: contaminant (4) CKD (chronic kidney disease), stage III Code(s): N18.3 - CHRONIC KIDNEY DISEASE, STAGE 3 (MODERATE) Status: Chronic Comment: (5) Chronic diastolic congestive heart failure Code(s): I50.32 - CHRONIC DIASTOLIC (CONGESTIVE) HEART FAILURE Status: Chronic (6) Coronary artery disease Code(s): I25.10 - ATHSCL HEART DISEASE OF [place] CORONARY ARTERY W/O ANG PCTRS Status: Chronic Qualifiers: Coronary Disease-Associated Artery/Lesion type: [place] artery [place] vs. transplanted heart: [place] heart Associated angina: without angina Qualified Code(s): I25.10 - Atherosclerotic heart disease of [place] coronary artery without angina pectoris (7) Diabetes type 2, controlled Code(s): E11.9 - TYPE 2 DIABETES MELLITUS WITHOUT COMPLICATIONS Status: Chronic Qualifiers: Diabetes mellitus jail insulin use: with jail use Diabetes mellitus complication status: with kidney complications Diabetes mellitus complication detail: with chronic kidney disease Chronic kidney disease stage : stage 3 (moderate) Qualified Code(s): E11.22 - Type 2 diabetes mellitus with diabetic chronic kidney disease; N18.3 - Chronic kidney disease, stage 3 ( moderate); N18.3 - Chronic kidney disease, stage 3 (moderate); N18.3 - Chronic kidney disease, stage 3 (moderate); Z79.4 - exterminator helper termite (current) use of insulin; Z79.4 - FDC (current) use of insulin; Z79.4 - FDC (current) use of insulin; Z79.4 - exterminator helper termite (current) use of insulin Comment: (8) Dyslipidemia Code(s): E78.5 - HYPERLIPIDEMIA, UNSPECIFIED Status: Chronic (9) GERD (gastroesophageal reflux disease) Code(s): K21.9 - GASTRO-ESOPHAGEAL REFLUX DISEASE WITHOUT ESOPHAGITIS Status: Chronic Qualifiers: Esophagitis presence: esophagitis presence not specified (10) Hypertension Code(s): I10 - ESSENTIAL (PRIMARY) HYPERTENSION Status: Chronic Qualifiers: Hypertension type: essential hypertension (11) Hypothyroidism Code(s): E03.9 - HYPOTHYROIDISM, UNSPECIFIED Status: Chronic Qualifiers: Comment: (12) Severe aortic stenosis by prior echocardiogram Code(s): I35.0 - NONRHEUMATIC AORTIC (VALVE) STENOSIS Status: Chronic (13) Stasis dermatitis of both legs Code(s): I83.11 - VARICOSE VEINS OF RIGHT LOWER EXTREMITY WITH INFLAMMATION; I83.12 - VARICOSE VEINS OF LEFT LOWER EXTREMITY WITH INFLAMMATION Status: Chronic - Plan to continue pen vk bid -: renal function at baseline, home dose demadex, no zaroxolyn -: dc pt home -: blood cs are contaminant, confirmed with -: lidocaine patch over left scapula * . Review of Systems - Medications/Allergies Allergies/Adverse Reactions: Allergies Allergy/AdvReac Type Severity Reaction Status Date / Time hydrocodone [From [place]] Allergy Verified 03/09/18 22:21 Medications: Current Medications Acetaminophen (Tylenol) 650 mg PO Q4H PRN PRN Reason: Headache/Fever or Pain Stop: 03/14/18 09:00 Last Admin: 03/12/18 11:28 Dose: 650 mg Amiodarone HCl (Cordarone) 200 mg PO DAILY [facility] Last Admin: 03/12/18 09:34 Dose: 200 mg Aspirin (Ecotrin) 81 mg PO DAILY [facility] Last Admin: 03/12/18 09:34 Dose: 81 mg Atorvastatin Calcium (Lipitor) 10 mg PO HS [facility] Last Admin: 03/11/18 21:31 Dose: 10 mg Carvedilol (Coreg) 3.125 mg PO BID-[facility] Last Admin: 03/12/18 09:35 Dose: 3.125 mg Cholecalciferol (Vitamin D3) 5,000 units PO DAILY [facility] Last Admin: 03/12/18 09:33 Dose: 5,000 units Dextrose/Water (Dextrose 50%) 25 gm IVP PRN PRN PRN Reason: HYPOGLYCEMIA PROTOCOL Enoxaparin Sodium (Lovenox) 30 mg SC 0900 [facility] Last Admin: 03/12/18 09:35 Dose: 30 mg Gabapentin (Neurontin) 600 mg PO TID [facility] Last Admin: 03/12/18 09:34 Dose: 600 mg Glucagon (Glucagon) 1 mg IM PRN PRN PRN Reason: HYPOGLYCEMIA PROTOCOL Sodium Chloride (1/2 Normal Saline) 1,000 mls @ 75 mls/hr IV .[id number] [facility] Last Admin: 03/12/18 05:09 Dose: Not Given Dextrose/Water (D5w) 1,000 mls @ 0 mls/hr IV INF PRN; As Directed PRN Reason: HYPOGLYCEMIA PROTOCOL Insulin Human Isoph/Insulin Regular (Humulin 70/30) 30 units SC BID-[facility] Last Admin: 03/12/18 09:35 Dose: 30 unit Insulin Human Lispro (Humalog) 0 units SC .MILD SLIDING SCALE PRN; Protocol PRN Reason: MILD SLIDING SCALE Last Admin: 03/11/18 21:32 Dose: 3 unit Isosorbide Dinitrate (Isordil) 10 mg PO DAILY [facility] Last Admin: 03/12/18 09:35 Dose: 10 mg Levothyroxine Sodium (Synthroid) 150 mcg PO 0600 [facility] Last Admin: 03/12/18 05:00 Dose: 150 mcg Lidocaine (Lidoderm 5% Patch) 1 patch TD DAILY [facility] Last Admin: 03/12/18 09:36 Dose: 1 patch Lidocaine (Lidoderm 5% Patch) 1 patch TD NOW KASSANDRA Stop: 03/12/18 21:00 Last Admin: 03/12/18 11:28 Dose: 1 patch Lorazepam (Ativan) 0.5 mg PO HS [facility] Last Admin: 03/11/18 21:32 Dose: 0.5 mg Lubiprostone (Amitiza) 24 mcg PO DAILY [facility] Last Admin: 03/12/18 09:33 Dose: 24 mcg Miscellaneous Medication (Lidocaine Patch Removal) 1 each TOP ASDIR [facility] Morphine Sulfate (Morphine) 2 mg SLOW IVP Q6H PRN PRN Reason: Severe Pain (7-10) Ondansetron HCl (Zofran Odt) 4 mg PO Q8H PRN PRN Reason: Nausea Last Admin: 03/11/18 17:11 Dose: 4 mg Pantoprazole Sodium (Protonix) 40 mg PO DAILY [facility] Last Admin: 03/12/18 09:33 Dose: 40 mg Penicillin V Potassium (Penicillin V Potassium) 250 mg PO BID [facility] Last Admin: 03/12/18 09:33 Dose: 250 mg Potassium Chloride (K-Dur) 20 meq PO QAM-WM [facility] Last Admin: 03/12/18 09:34 Dose: 20 meq Prednisone (Prednisone) 10 mg PO QAM-WM [facility] Last Admin: 03/12/18 09:34 Dose: 10 mg Sodium Chloride (Flush - Normal Saline) 10 ml IVF Q12HR [facility] Last Admin: 03/12/18 09:37 Dose: 10 ml Sodium Chloride (Flush - Normal Saline) 10 ml IVF PRN PRN PRN Reason: Saline Flush Tramadol HCl (Ultram) 50 mg PO QID PRN PRN Reason: Moderate Pain (4-6) Last Admin: 03/12/18 11:28 Dose: 50 mg
--- NOTE | 2018-03-13 21:22 | DIS ---
DATE OF ADMISSION: 03/09/2018 DATE OF DISCHARGE: 03/12/2018 DISCHARGE DISPOSITION: To home. PRIMARY DISCHARGE DIAGNOSES: Left scapular body fracture, acute kidney injury. SECONDARY DISCHARGE DIAGNOSES: Chronic kidney disease stage 3, history of congestive heart failure with diastolic dysfunction, coronary artery disease, diabetes mellitus type 2, chronic pain syndrome, severe aortic stenosis, dyslipidemia, hypertension, hypothyroidism, gastroesophageal reflux disease, stasis dermatitis of both lower extremities. PROCEDURES DONE DURING HOSPITALIZATION: Patient had three-view left shoulder x- ray done showed vertically oriented, mildly displaced left scapular body fracture, left third through fifth rib fractures were also seen. Chest x-ray done showed cardiomegaly without any acute cardiopulmonary abnormalities. Left three-view shoulder x-ray done showed no acute osseous abnormality. Urine culture, no growth. One of two blood culture grew alpha strep, which likely is a contaminant. Had a white count of 12 with discharge number of 10, H&H 11 and 35, platelet count 265. Discharge BUN and creatinine is 44 and 1.1. Admitting BUN and creatinine were 98 and 1.9 with serum bicarbonate of 31 on the day of admission. CRP was 0.8. One set of cardiac enzymes were negative. Lactic acid was 2.2. INPATIENT CONSULTS: Dr. Mitchell for Orthopedic Surgery, Dr. Mills for Infectious Disease. DISCHARGE MEDICATIONS: Patient to continue penicillin VK 250 mg p.o. twice daily for a total of 3 months and this needs to be reevaluated via either Dr. Mills or primary care physician whether she needs to continue to suppress infection in her both lower extremities with chronic venous stasis, lidocaine 5 % transdermal patch over the left scapula, aspirin 81 mg p.o. daily, amiodarone 200 mg p.o. daily, Lipitor 10 mg p.o. at bedtime, Coreg 3.125 mg p.o. twice daily, vitamin D3 of 5000 units p.o. daily, gabapentin 600 mg p.o. 3 times daily , Humalog 75/25 of 45 units subQ q.a.m., isosorbide dinitrate 10 mg daily, Synthroid 150 mcg p.o. daily, lorazepam 0.5 mg p.o. at bedtime, Amitiza 24 mcg p.o. daily, Protonix 40 mg p.o. daily, K-Dur 20 mEq p.o. daily, prednisone 10 mg p.o. daily, torsemide 20 mg p.o. twice daily, Ultram p.r.n. for pain. ALLERGIES: HYDROCODONE. DISCHARGE PLAN: Patient to follow up with Dr. Mitchell in 4-6 weeks. She also needs to follow up with her primary care physician in one week and to continue wound care as before. BRIEF COURSE DURING HOSPITALIZATION: Patient initially came to ER after her wound care physician, Dr. Lizbeth Curtis sent her for suspicion of right lower extremity cellulitis. On arrival, her labs revealed acute kidney injury with elevated BUN and creatinine of 89 and 1.56. She was gently hydrated with normal saline. Patient was initially placed on broad spectrum IV antibiotics, which was discontinued within [address] Mills and Wound Care evaluated the patient and found no acute flareup or active infection. She was advised to continue penicillin VK. She had left shoulder and back pain for which x-rays were obtained for scapula and the shoulder on the left side. Patient was found to have had fracture of the body of the scapula with rib fractures as well. She was evaluated by Dr. Mitchell. Patient was for pain control for the same. She needs to follow up with Dr. Mitchell in 4-6 weeks to see for healing of the fracture. Her renal function has come back to more or less her baseline. Discharge BUN and creatinine of 44 and 1.1 now. She has been advised to continue her Demadex as before along with potassium from the time of discharge. Patient needs to continue penicillin VK 250 mg twice daily for at least 90 days and needs to be reevaluated by primary care physician or Dr. Mills and a decision to further continue the same for prophylaxis with chronic venous stasis dermatitis in both lower extremities. Prior to discharge, she is ambulating. The patient needs to follow up with her primary care physician in 1 week. Please see a [id number] documentation on [employer] for the day of discharge. [facility] CENTER[facility]is
== END 2018-03-12 14:53 | disposition home or self-care (01) | DRG 565 ==
LOC: ERS 17:57 → T4-B 21:32
PROVIDERS: ADMIT Hospitalist; ATTEND Hospitalist
DX: S42.112A Displaced fracture of body of scapula, left shoulder, initial encounter for closed fracture (principal); N17.9 Acute kidney failure, unspecified; S22.42XA Multiple fractures of ribs, left side, initial encounter for closed fracture; B02.29 Other postherpetic nervous system involvement; I13.0 Hypertensive heart and chronic kidney disease with heart failure and stage 1 through stage 4 chronic kidney disease, or unspecified chronic kidney disease; I50.32 Chronic diastolic (congestive) heart failure; I87.2 Venous insufficiency (chronic) (peripheral); L89.152 Pressure ulcer of sacral region, stage 2; E66.01 Morbid (severe) obesity due to excess calories; I48.0 Paroxysmal atrial fibrillation; I35.0 Nonrheumatic aortic (valve) stenosis; E03.9 Hypothyroidism, unspecified; G89.4 Chronic pain syndrome; I25.10 Atherosclerotic heart disease of native coronary artery without angina pectoris; E11.22 Type 2 diabetes mellitus with diabetic chronic kidney disease; N18.3 Chronic kidney disease, stage 3 (moderate); Z89.422 Acquired absence of other left toe(s); Z79.4 Long term (current) use of insulin; Z79.82 Long term (current) use of aspirin; Z79.52 Long term (current) use of systemic steroids; Z68.29 Body mass index [BMI] 29.0-29.9, adult; X58.XXXA Exposure to other specified factors, initial encounter
CPT/HCPCS: 36415; 36416; 71045; 80048; 80053; 80202; 81003; 81015; 82550; 82553; 83605; 84484; 85025; 86140; 87040; 87086; 87149; 93005; 93010; 96365; 96366; 96367; 96375; A4216; J1610; J1650; J2270; J2543; J3370; J7050; J7506; Q0162

== ENCOUNTER 2018-04-17 14:01 | Inpatient (IN) | payer MEDICARE, BC ==
[2018-04-17 15:02] LABS: Bilirubin Negative (Negative); Blood, Urine Trace (Negative); Clarity CLEAR (Clear); Glucose, Urine (Dipstick) Negative (Negative); Leukocyte Moderate (Negative); Nitrite Negative (Negative); Protein, Urine (Dipstick) Negative (Neg-Trace); Specific Gravity, Urine 1.009 (1.002-1.036); Urobilinogen 0.2 mg/dL (0.2-1.0); pH, Urine 6.5 (5.0-9.0)
[2018-04-17 15:06] LABS: Bacteria/HPF None Seen HPF (None Seen); Hyaline Casts/LPF 0-3 HYALINE CAST LPF (0-3 Hyaline); Pathc Cast-AUWi Flag 0.29 (0-2.49); Squamous Epithelial 0-3 HPF (0-3); WBC/HPF 21-50 HPF (0-3)
[2018-04-17 15:39] LABS: Hemoglobin 12.2 g/dL (12.0-16.0); Mean Corpuscular HGB CONC 31.8 g/dL (32.0-36.0); Mean Corpuscular Hemoglobin 28.5 pg (27.0-31.0); Mean Corpuscular Volume 89.4 fL (78.0-98.0); Mean Platelet Volume 6.6 fL (7.4-10.4); Platelet Count 286 thou/uL (130-400); RBC Distribution Width 15.2 % (11.5-14.5); Red Blood Cell (RBC) Count 4.28 mill/uL (4.20-5.40); White Blood Cell (WBC) Count 23.8 thou/uL (4.8-10.8)
[2018-04-17 15:55] LABS: Anisocytosis SLIGHT = 6-15 cells (100X) (0-5/hpf); Band 8 % (5-11); Lymphocytes 3 % (21-51); MDiff Complete? YES; Monocytes 2 % (0-10); Neutrophil 86 % (42-75); PLT Morphology Comment Appears Adequate; Polychromasia SLIGHT = 2-3 cells (100X) (0-2/hpf); Reactive Lymphocytes 1 % (0-10)
[2018-04-17 16:01] LABS: ALT (SGPT) 13 U/L (8-55); AST (SGOT) 19 U/L (5-34); Albumin 3.7 g/dL (3.4-4.8); Alkaline Phosphatase 85 U/L (40-150); Anion Gap 17 mmol/L (10-20); BUN (Urea Nitrogen) 68 mg/dL (9.8-20.1); Bilirubin, Total 0.8 mg/dL (0.2-1.2); CK (CPK) 73 U/L (29-168); Calc. Creatinine Clearance 0 mL/min (70-130); Calcium 9.6 mg/dL (7.8-10.44); Carbon Dioxide 31 mmol/L (23-31); Chloride 93 mmol/L (98-107); Estimated GFR-MDRD 32; Globulin 3.5 g/dL (2.4-3.5); Glucose 95 mg/dL (83-110); Lipase 12 U/L (8-78); Potassium 3.2 mmol/L (3.5-5.1); Protein, Total 7.2 g/dL (6.0-8.3); Sodium 138 mmol/L (136-145)
[2018-04-17 16:05] LABS: CKMB 2.2 ng/mL (0-6.6); Troponin I 0.037 ng/mL (< 0.028)
--- NOTE | 2018-04-17 16:16 | RAD ---
PORTABLE CHEST: HISTORY: Shortness of breath. COMPARISON: 03/09/2018 FINDINGS: Cardiomegaly with mild vascular congestion. Evidence of bilateral effusions. IMPRESSION: Cardiomegaly and congestive changes noted. POS: NATALIIAH
--- NOTE | 2018-04-17 16:20 | ULT ---
LEFT LOWER EXTREMITY VENOUS DUPLEX EXAM: INDICATIONS: Left thigh erythema, edema, and pain. TECHNIQUE: The deep veins of the left lower extremity were evaluated with color Doppler, spectral analysis, and compression. FINDINGS: The deep veins of the left lower extremity show normal blood flow and compression. No evidence of DV T. Ultrasound shows multiple circumscribed hypoechoic, mass like areas in the left upper thigh, in the s ubcutaneous tissues, measuring approximately 1.5 x 3.5 cm transverse by 4.1 cm in length. This is chatman spicious for a soft tissue hematoma. IMPRESSION: 1. No evidence of deep venous thrombosis in the left lower extremity. 2. There is a circumscribed hypoechoic mass in the soft tissues of the left upper thigh. Hematoma w ould be considered a likely possibility. Other soft tissue masses are not excluded by ultrasound. POS: MAGY
[2018-04-17 18:22] LABS: Troponin I 0.049 ng/mL (< 0.028)
[2018-04-17] MEDS ORDERED: Piperacillin/Tazobactam 4.5 GM VIAL ONE (18:32)
[2018-04-17 19:16] LABS: Lactic Acid 1.9 mmol/L (0.5-2.2)
--- NOTE | 2018-04-17 19:39 | ULT ---
SOFT TISSUE ULTRASOUND RIGHT UPPER THIGH: A circumscribed hypoechoic soft tissue mass was seen with ultrasound. This was described on a right lower extremity venous Doppler ultrasound exam. Please see that study for further characterization. POS: MAGW
--- NOTE | 2018-04-17 20:42 | HP ---
DATE OF ADMISSION: 04/17/2018 CHIEF COMPLAINT: Left leg pain. HISTORY OF PRESENT ILLNESS: This is an 82-year-old white female who presented with a complaint of fe kenyetta and left leg pain for the past few days. The patient had a recent ablation, but that closure was from the right thigh. Patient when she came to the ER, she was complaining of some chest pain and d iscomfort, noted to have elevated troponins. She denies having any nausea or vomiting or diarrhea or constipation. She denies having any trauma to the left leg. It was noted that the patient has 4 x 3 cm cystic swelling in the left thigh suspicious for either hematoma or an abscess. The patient has evidence of congestive heart failure with markedly swollen abdomen and lower extremities with pedal edema. The patient has multiple admissions in the past for CHF. She sees Dr. Lynch and would like to see only Dr. Lynch. PAST MEDICAL HISTORY: 1. Type 2 diabetes mellitus. 2. History of coronary artery disease. 3. History of chronic venous stasis dermatitis. 4. Morbid obesity. 5. Hypothyroidism. 6. Hypertension. 7. CKD stage 4. 8. Atrial fibrillation. 9. Moderate to severe aortic stenosis. 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 SOCIAL HISTORY: The patient is not a nonsmoker. No history of alcohol, no history of illicit drug u se. She lives by herself. Code status has been discussed with the patient and she would like to be full code. She did not name the medical power of senior attorney at this time. FAMILY HISTORY: She has 2 children who in the age of 40s and daughter of breast cancer. S on at the age of 47 years. ALLERGIES: HYDROCODONE. HOME MEDICATIONS: 1. The patient is on amiodarone 200 mg daily, aspirin 81 mg daily, and Lipitor 10 mg daily, Coreg 3. 125 mg p.o. twice daily. 2. Gabapentin 600 mg p.o. 3 times a day. 3. Insulin 75/25 she takes 45 units subcu in the morning. 4. Isosorbide mononitrate 10 mg p.o. daily. 5. Levothyroxine 150 mg p.o. daily. 6. Metolazone 5 mg p.o. on the weekends. 7. Amitiza 24 mg daily. 8. Demadex 20 mg p.o. twice daily. 9. Potassium chloride 20 mEq p.o. daily. REVIEW OF SYSTEMS: All 12 systems are reviewed with the patient thoroughly and found to be negative except the ones described in the HPI. The following complete review of systems was negative, unless otherwise mentioned in the HPI or below: Constitutional: Weight loss or gain, sense of well-being, ability to conduct usual activities, exercise tolerance. Skin/Breast: Rash, itching, changes in hair growth or loss, nail changes, breast lumps, tenderness, swelling, nipple discharge. Eyes: Vision, double vision, tearing, blind spots, pain. ENT/Mouth: Headaches (location, time of onset, duration, precipitating factors), vertigo, lightheade dness, injury. Vision, double vision, tearing, blind spots, pain, nose bleeding, colds, obstruction, discharge, dental difficulties, gingival bleeding, dentures, neck stiffness, pain, tenderness, masses in thyroid or other areas Cardiovascular: Precordial pain, substernal distress, palpitations, synco pe, dyspnea on exertion, orthopnea, nocturnal paroxysmal dyspnea, edema, cyanosis, hypertension, hear t murmurs, varicosities, phlebitis, claudication. Respiratory: Pain, shortness of breath, wheezing, stridor, cough, hemoptysis, fever or night sweats. Gastrointestinal: Poor appetite, dysphagia, ind igestion, abdominal pain, heartburn, eructation, nausea, vomiting, hematemesis, jaundice, constipatio n, or diarrhea, abnormal stools (xavier-colored, tarry, bloody, greasy, foul smelling), flatulence, hem orrhoids, recent changes in bowel habits. Genitourinary: Urgency, frequency, dysuria, nocturia, hem aturia, polyuria, oliguria, unusual (or change in) color of urine, stones, hesitancy, change in size of stream, dribbling, acute retention or incontinence, libido, potency. Musculoskeletal: Pain, swel ling, redness or heat of muscles or joints, limitation, of motion, muscular weakness, atrophy, cramps . Neurologic/Psychiatric: Convulsions, paralyses, tremor, incoordination, parasthesias, difficultie s with memory of speech, sensory or motor disturbances, or muscular coordination (ataxia, tremor), em otional problems, anxiety, depression, previous psychiatric care, unusual perceptions, hallucinations . Allergy/Immunologic: Skin rash, anemia, bleeding tendency, polydipsia, polyuria, intolerance to h eat or cold. PHYSICAL EXAMINATION: VITAL SIGNS: Blood pressure is 110/80, heart rate is 88, respiratory rate is 18, saturation 98%. GENERAL: The patient is moderately built and moderately nourished. She does not appear to be in acu te distress at this time. She is alert, oriented x3. HEENT: Atraumatic, normocephalic, PERRLA. Extraocular movement intact. Oral mucosa is pink and mois t. CARDIOVASCULAR: S1, S2 normal. Irregularly irregular heart rate and rhythm. LUNGS: Bilateral air entry was equal. No wheezing, no crackles. ABDOMEN: Distended, nontender, no guarding, no rebound tenderness. Has ascites appearance with engo rged veins on the abdomen. MUSCULOSKELETAL: The patient has a left lower extremity with tender spot on the left thigh erythemat ous and 4 x 3 cm in size. Acutely tender at this time. Patient has severe pedal edema up to 3+, sev ere venous stasis with right leg showing venous ulcer, has a dressing over it. Skin erythema noted i n the lower extremities likely from venous stasis. Otherwise, no cyanosis. OIL DRILLER: Cranial nerve examination II-XII intact. No focal deficits were noted. PSYCHIATRIC: No signs of suicidal ideation. No signs of romero. LYMPHADENOPATHY: No evidence of any lymphadenopathy was noted. LABORATORY DATA: WBC 23,000, hemoglobin is 12.2, hematocrit is 38.3, platelets 286. Sodium is 130, potassium 3.2, chloride is 93, BUN is 68, creatinine 1.56. Lactic acid 2.4, troponin 0.370, next one is 0.049. BNP is 264. CHEST X-RAY: A chest x-ray was done showing evidence of cardiomegaly and evidence of congestive hear t failure. Vascular ultrasound was done, which did not show any evidence of DVT, but did show 4 x 3. 5 x 1.5 cm suspicious soft tissue hematoma or any abscess could not be ruled out. ASSESSMENT PLAN: 1. Severe sepsis. 2. Non-ST elevation myocardial infarction. 3. Left thigh hematoma or abscess. 4. Hypokalemia. 5. Acute congestive heart failure, likely diastolic dysfunction. 6. Acute urinary tract infection. PLAN: 1. Plan is to closely monitor this patient. Patient has multiple comorbidities with acute presentat ion of sepsis. We will start the patient on empiric antibiotic with Zosyn to cover any anaerobic inf ection if it is an abscess. We will not start her on IV fluids at this time as the patient has sever ken congestive heart failure and with elevated troponins. We will start the patient on Coreg. 2. The patient has evidence of Non-ST elevation myocardial infarction. We will start the patient on aspirin 81 mg daily and Coreg 3.125 mg twice a day, and atorvastatin. We will do a 2D echo and we w ill have Cardiology see the patient in the morning. 3. The patient has evidence of acute urinary tract infection. We will continue the patient on Zosyn at this time. 4. Patient has evidence of left thigh abscess. We will consult General Surgery. ER physician tried to call Dr. Pimentel who have planned with plan to see the patient. 5. We will follow with recommendations based on the aspiration at the time. 6. The patient has evidence of acute congestive heart failure. We will restart the patient on Demad ex 20 mg twice a day and closely monitor the blood pressures at this time. Patient is very fragile a nd is high risk for decompensation. We will closely monitor. 7. Deep venous thrombosis prophylaxis. We will do SCDs at this time as the patient would be getting aspiration of the cystic mass. I spent 75 minutes, of this one hour was critical care time.
[2018-04-17 22:08] LABS: Troponin I 0.028 ng/mL (< 0.028)
[2018-04-17] MEDS: Acetaminophen 325 MG TAB PO PRN (22:29)
[2018-04-17] MEDS: Lorazepam 0.5 MG TAB PO SCH (22:29)
[2018-04-17] MEDS: Gabapentin 300 MG CAP PO SCH (22:29)
[2018-04-18 01:35] LABS: #Lymphocytes 1.3 thou/uL (1.20-3.40); #Monocytes 0.9 thou/uL (0.11-0.59); #Neutrophils 18.1 thou/uL (1.40-6.50); %Basophils 0.1 % (0.0-1.0); %Eosinophils 0.1 % (0.0-10.0); %Lymphocytes 6.3 % (21.0-51.0); %Monocytes 4.6 % (0.0-10.0); Hemoglobin 9.7 g/dL (12.0-16.0); Mean Corpuscular Hemoglobin 28.7 pg (27.0-31.0); Mean Corpuscular Volume 89.6 fL (78.0-98.0); Mean Platelet Volume 6.5 fL (7.4-10.4); Platelet Count 242 thou/uL (130-400); RBC Distribution Width 15.1 % (11.5-14.5); Red Blood Cell (RBC) Count 3.37 mill/uL (4.20-5.40); White Blood Cell (WBC) Count 20.3 thou/uL (4.8-10.8)
[2018-04-18] MEDS: Piperacillin/Tazobactam 2.25 GM in Sodium Chloride 0.9% 100 ML IVPB SCH ×4 (01:46→21:18)
[2018-04-18 01:51] LABS: Lactic Acid 2.4 mmol/L (0.5-2.2)
[2018-04-18 01:58] LABS: Cardiac Risk 2.7 (Less than 4.5)
[2018-04-18] MEDS ORDERED: Piperacillin/Tazobactam 3.375 GM in Sodium Chloride 0.9% 100 ML IVPB SCH (02:00)
[2018-04-18] MEDS: Levothyroxine 150 MCG TAB PO SCH (05:32)
[2018-04-18] MEDS ORDERED: traMADol HCl 50 MG TAB PO PRN (06:13)
[2018-04-18] MEDS: traMADol HCl 50 MG TAB PO PRN ×2 (06:30→12:46)
--- NOTE | 2018-04-18 07:47 | CON ---
DATE OF CONSULTATION: 04/18/2018 CHIEF COMPLAINT: Left leg abscess. HISTORY OF PRESENT ILLNESS: This is an 82-year-old female with a history of CAD, CHF, diabetes max terrell who presents with a history of left leg pain, found to have an abscess and cellulitis. She has a history of multiple admissions secondary to her congestive heart failure. Pain is described as 8/10 and sharp in the area. No fevers or chills. PAST MEDICAL HISTORY: Diabetes, coronary artery disease, chronic venous stasis disease and chronic i nfection bilateral lower extremity, morbid obesity, hypothyroidism, hypertension, stage 4 kidney dise ase, atrial fibrillation, aortic stenosis. PAST SURGICAL HISTORY: Toe amputation, appendectomy, cholecystectomy, hysterectomy. SOCIAL HISTORY: Non-smoker. No alcohol or other drugs. REVIEW OF SYSTEMS: Ten system review of systems otherwise negative. MEDICINES: See list. ALLERGIES: HYDROCODONE. PHYSICAL EXAMINATION: VITAL SIGNS: Blood pressure is 126/60, pulse 66, respirations 15. HEENT: Sclerae are anicteric. Oropharynx clear. NECK: No lymphadenopathy. CHEST: Clear. HEART: Regular rate and rhythm. ABDOMEN: Soft, nontender. EXTREMITIES: Left lower extremity reveals severe chronic dermatitis changes to the bilateral lower e xtremity in the setting of venous stasis disease. There is some erythema over bilateral pretibial re gion. There is also a 4-5 cm area of swelling and fluctuance that is deep to the skin, probably in t he muscle to the left mid thigh. LABORATORY AND X-RAY FINDINGS: Ultrasound shows a phlegmonous change in this area. ASSESSMENT: Left thigh abscess, multiple comorbidities and medical problems. PLAN: I&D under sedation in the operating room. Risks and benefits discussed. She gives consent.
[2018-04-18] MEDS: Carvedilol 3.125 MG TAB PO SCH ×2 (08:28→17:10)
[2018-04-18] MEDS ORDERED: Torsemide 20 MG TAB PO SCH (09:00)
[2018-04-18] MEDS ORDERED: Aspirin 81 mg Enteric Coated Tablet PO SCH (09:00)
[2018-04-18] MEDS ORDERED: Bupivacaine/Epinephrine 0.25% 30 ML VIAL ONE (09:50)
[2018-04-18] MEDS ORDERED: Fentanyl 100 MCG/2 ML VIAL ONE ×2 (09:54→10:55)
[2018-04-18] MEDS ORDERED: Ketamine 50 MG/ML VIAL ONE (10:09)
[2018-04-18] MEDS ORDERED: Ondansetron HCl/PF 4 MG/2 ML Vial IVP PRN (10:37)
--- NOTE | 2018-04-18 10:50 | OP ---
DATE OF PROCEDURE: 04/18/2018 PREOPERATIVE DIAGNOSIS: Left thigh abscess. POSTOPERATIVE DIAGNOSES: Left thigh abscess. PROCEDURE: Incision and drainage left thigh abscess deep. SURGEON: Dr. Augie Pimentel ANESTHESIA: TIVA, local. . ESTIMATED BLOOD LOSS: Minimal. COMPLICATIONS: None. SPECIMEN: Cultures taken for anaerobes and aerobes. TECHNIQUE: The patient was taken to the operating room, placed supine on the table. After sedation was obtained, the left thigh is prepped and draped in a sterile fashion. Local anesthetic infiltrate d over the fluctuant mass. Ellipse of skin was taken out exposing the abscess. Gross purulence was obtained. Cultures were obtained. The wound is irrigated. Meticulous hemostasis obtained. The wou nd is packed using half inch iodoform gauze followed by sterile dressing. The patient went to [facility] – [place], [place] room in stable condition. All instrument counts, needle counts, lap counts are correct.
[2018-04-18] MEDS: Aspirin 325 MG TAB PO SCH (12:45)
[2018-04-18] MEDS: predniSONE 5 MG TAB PO SCH (12:47)
[2018-04-18] MEDS: Gabapentin 300 MG CAP PO SCH ×3 (12:47→21:19)
[2018-04-18] MEDS: Pantoprazole 40 MG GRANULES PACKET PO SCH (12:47)
[2018-04-18] MEDS: Isosorbide Dinitrate 20 MG TAB PO SCH (12:47)
[2018-04-18] MEDS: Docusate 100 MG CAP PO SCH ×2 (12:47→21:19)
[2018-04-18] MEDS: Amiodarone 200 MG TAB PO SCH (12:47)
[2018-04-18] MEDS: Insulin NPH/Reg Insulin Hm 300 UNITS/3 ML VIAL SC SCH (12:48)
[2018-04-18] MEDS: Lidocaine 5% Patch TD SCH (12:49)
[2018-04-18] MEDS ORDERED: Potassium Chloride 20 MEQ TAB PO SCH (13:30)
[2018-04-18] MEDS ORDERED: Lidocaine 1% PF 5 ML VIAL ONE (14:34)
[2018-04-18] MEDS ORDERED: PROPOFOL 200 MG/20 ML VIAL ONE (14:34)
[2018-04-18] MEDS: Furosemide 40 MG/4 ML VIAL SLOW IVP SCH (15:31)
--- NOTE | 2018-04-18 15:47 | PDOC.PN ---
- Subjective Encounter Start Date: 04/18/18 Encounter Start Time: 15:15 Subjective: f/u for L thigh abscess s/p I&D 04/18/18. Feels sore all over but no fever. -: Tolerated diet. c/o mouth soreness and some pain with dentures. - Objective Resuscitation Status: Resuscitation Status FULL:Full Resuscitation MAR Reviewed: Yes Vital Signs & Weight: Vital Signs (12 hours) Temp Pulse Resp BP Pulse Ox 04/18/18 12:05 98.1 F 60 20 146/65 H 99 04/18/18 07:30 98.2 F 64 18 148/65 H 94 L Weight Admit Weight 170 lb 6.677 oz Weight 164 lb 2 oz I&O: 04/17/18 04/18/18 04/19/18 06:59 06:59 06:59 Intake Total 480 Output Total 300 Balance 180 Result Diagrams: 04/18/18 01:19 04/17/18 13:15 Additional Labs: Accuchecks 04/18/18 04/17/18 06:04 22:09 POC Glucose 119 H 234 H Microbiology 02/04/18 11:10 Urine Straight Catheter Urine Culture - Final Escherichia coli 02/04/18 11:10 Buttock - Pending Bacterial Culture - Final Proteus mirabilis Gram Negative Praveen#2 Presumptive Pseudomonas Enterococcus species 04/18/18 10:34 Thigh - Left Bacterial Culture - Preliminary 04/17/18 15:28 Venous blood - Right Hand Blood Culture - Preliminary Specimen has been received and culture in progress. No Growth to date. 04/17/18 14:40 Venous blood - Left Hand Blood Culture - Preliminary Specimen has been received and culture in progress. No Growth to date. 04/17/18 14:34 Urine voided Urine Culture - Preliminary Gram Negative Praveen 02/04/18 11:10 Urine Straight Catheter Urine Culture - Preliminary Escherichia coli 02/04/18 11:10 Buttock - Pending Bacterial Culture - Preliminary 02/04/18 10:55 Venous blood - Left Arm Blood Culture - Preliminary Specimen has been received and culture in progress. No Growth to date. 02/04/18 10:55 Venous blood - Left Arm Blood Culture - Preliminary NO GROWTH AT 48 HOURS 02/04/18 10:46 Venous blood - Right Arm Blood Culture - Preliminary Specimen has been received and culture in progress. No Growth to date. 02/04/18 10:46 Venous blood - Right Arm Blood Culture - Preliminary NO GROWTH AT 48 HOURS Laboratory Tests 02/04/18 02/04/18 02/04/18 10:46 10:46 14:33 WBC 20.0 H Neutrophils % Neutrophils % (Manual) Band Neuts % (Manual) 19 H Potassium 3.1 L BUN 100 H Creatinine 2.47 H Lactic Acid 1.1 Troponin I B-Natriuretic Peptide Triglycerides Cholesterol LDL Cholesterol, Calc HDL Cholesterol Vancomycin Trough Random Vancomycin 02/05/18 02/05/18 02/06/18 03:50 14:51 04:31 WBC 13.3 H 8.3 Neutrophils % Neutrophils % (Manual) Band Neuts % (Manual) 20 H Potassium BUN Creatinine Lactic Acid Troponin I B-Natriuretic Peptide Triglycerides Cholesterol LDL Cholesterol, Calc HDL Cholesterol Vancomycin Trough Random Vancomycin 6.6 02/08/18 04/17/18 04/17/18 14:55 13:15 13:15 WBC Neutrophils % Neutrophils % (Manual) Band Neuts % (Manual) Potassium BUN Creatinine Lactic Acid Troponin I 0.037 H B-Natriuretic Peptide 264.1 H Triglycerides Cholesterol LDL Cholesterol, Calc HDL Cholesterol Vancomycin Trough 15.2 Random Vancomycin 04/17/18 04/17/18 04/17/18 13:15 13:15 17:50 WBC 23.8 H Neutrophils % Neutrophils % (Manual) 86 H Band Neuts % (Manual) Potassium BUN Creatinine Lactic Acid 2.4 H Troponin I 0.049 H B-Natriuretic Peptide Triglycerides Cholesterol LDL Cholesterol, Calc HDL Cholesterol Vancomycin Trough Random Vancomycin 04/17/18 04/17/18 04/17/18 17:50 21:27 21:27 WBC Neutrophils % Neutrophils % (Manual) Band Neuts % (Manual) Potassium BUN Creatinine Lactic Acid 1.9 2.9 H Troponin I 0.028 B-Natriuretic Peptide Triglycerides Cholesterol LDL Cholesterol, Calc HDL Cholesterol Vancomycin Trough Random Vancomycin 04/18/18 04/18/18 01:19 01:19 WBC Neutrophils % 89.0 H Neutrophils % (Manual) Band Neuts % (Manual) Potassium BUN Creatinine Lactic Acid Troponin I B-Natriuretic Peptide Triglycerides 114 Cholesterol 98 LDL Cholesterol, Calc 39 HDL Cholesterol 36 Vancomycin Trough Random Vancomycin Radiology Reviewed by me: Yes (2D echo - EF 55-60%) EKG Reviewed by me: Yes (Tele - SR) Phys Exam - Physical Examination Constitutional: NAD HEENT: PERRLA, sclera anicteric, oral pharynx no lesions Neck: no nodes, no JVD, supple, full ROM Respiratory: no wheezing, no rales, no rhonchi, clear to auscultation bilateral S1, S2 Cardiovascular: RRR, no rub, gallop Gastrointestinal: soft, non-tender, no distention, positive bowel sounds Musculoskeletal: pulses present, edema present Neurological: normal sensation, moves all 4 limbs Psychiatric: A&O x 3 Skin: normal turgor, cap refill <2 seconds Dx/Plan (1) Abscess of left lower extremity Code(s): L02.416 - CUTANEOUS ABSCESS OF LEFT LOWER LIMB Status: Acute Comment: s/p I&D today, continue Zosyn, await final wound cx results, pain control with Morphine Sulfate 4mg IV q2h prn, WCT for local care (2) Sepsis Code(s): A41.9 - SEPSIS, UNSPECIFIED ORGANISM Status: Acute Comment: Secondary to #1, continue Zosyn, monitor cx results (3) UTI (urinary tract infection) Status: Acute Comment: GNR on initial Ucx, continue Zosyn and await final cx results (4) Stasis dermatitis of both legs Code(s): I83.11 - VARICOSE VEINS OF RIGHT LOWER EXTREMITY WITH INFLAMMATION; I83.12 - VARICOSE VEINS OF LEFT LOWER EXTREMITY WITH INFLAMMATION Status: Chronic Comment: WCT for local skin care (5) Hypokalemia Code(s): E87.6 - HYPOKALEMIA Status: Acute Comment: KCL replacement, serial monitoring (6) Demand ischemia of myocardium Code(s): I24.8 - OTHER FORMS OF ACUTE ISCHEMIC HEART DISEASE Status: Acute Comment: No ACS, medical mgmt (7) Stomatitis Code(s): K12.1 - OTHER FORMS OF STOMATITIS Status: Acute Comment: Magic Mouthwash TID prn - Plan continue antibiotics, PT/OT, socially responsible investment adviser Stable overall -: Continue Zosyn -: Magic Mouthwash daily -: WCT for local care -: AM lab: BMP, CBC * .
[2018-04-18] MEDS ORDERED: Morphine 4 MG/ML VIAL SLOW IVP PRN (17:30)
[2018-04-18] MEDS: Aluminum & Magnesium Hydroxide 60 ML, diphenhydrAMINE 150 MG, Lidocaine 2% Viscous Solu... SSW PRN (18:02)
[2018-04-18] MEDS: Atorvastatin Calcium 10 MG TAB PO SCH (21:19)
[2018-04-18] MEDS: Lorazepam 0.5 MG TAB PO SCH (21:19)
[2018-04-18] MEDS: Lidocaine Patch Removal 1 EACH TOP SCH (21:20)
[2018-04-18] MEDS ORDERED: Dextrose 5% in Water 1,000 ML IV PRN (22:40)
[2018-04-18] MEDS ORDERED: Dextrose 50% Abboject 50 ML SYRINGE SLOW IVP PRN (22:40)
[2018-04-18] MEDS: HumaLOG 300 UNITS/3 ML VIAL SC PRN (23:00)
--- NOTE | 2018-04-19 01:25 | CON ---
DATE OF CONSULTATION: 04/18/2018 REASON FOR CONSULTATION: Congestive heart failure, diastolic. HISTORY OF PRESENT ILLNESS: Ms. Arminda Ivory is a delightful 82-year-old woman with history of coronary artery disease, aortic stenosis, diastolic heart failure, some venous insufficiency. The patient was admitted to the hospital on this occasion with left leg pain. She had a markedly swollen abdomen and lower extremities with pedal edema. On evaluation of her leg, it was found she had 4 x 3 cm cystic swelling in the left thigh, fluid filled, which proved to be an abscess. I have been consulted about her cardiac status. PAST MEDICAL HISTORY: 1. Coronary artery disease, previous stenting. 2. Venous stasis dermatitis. 3. Obesity. 4. Stage 4, renal failure. 5. Some atrial fibrillation, none recently. 6. Moderate to severe aortic stenosis. SOCIAL HISTORY: No alcohol or tobacco. FAMILY HISTORY: Negative for heart disease at a young age. ALLERGIES: HYDROCODONE. HOME MEDICATIONS: 1. Amiodarone. 2. Coreg 3.125 mg twice a day. 3. Gabapentin. 4. Insulin. 5. Metolazone. 6. Demadex. REVIEW OF SYSTEMS: Constitutional: No significant weight gain or loss. Vision : No changes. Hearing: No changes. Pulmonary: No cough or wheezing. Gastrointestinal: No nausea, vomiting, or diarrhea. Skin: No rashes. Neurologic: No unilateral weakness or numbness. Psychiatric: No unusual depression or anxiety. PHYSICAL EXAMINATION: GENERAL: This is a delightful elderly woman, in no distress. VITAL SIGNS: Blood pressure 148/65, pulse 64 regular. LUNGS: Clear. CARDIAC: Normal S1, normal S2. There is a 2-3/6 crescendo decrescendo murmur heard loudest right upper sternal border. No diastolic murmur, no S3. ABDOMEN: Soft, nontender. EXTREMITIES: The left thigh, there is a dressing in place where the abscess was drained. There is moderate to severe edema. PERTINENT LABORATORY AND X-RAY FINDINGS: Hemoglobin is 9.7 and when she came to the hospital, it was 11.5. She does have some history of anemia. Troponin levels were in the barely detectable range compatible with demand ischemia with a troponin level of 0.028. BNP was 264. Echocardiogram revealed that the ejection fraction is normal with ejection fraction 55% to 60%, aortic stenosis present, moderate to severe, peak gradient is 36 mmHg, mean gradient is 16 mmHg systolic. Moderate to severe . Previous coronary artery disease with stenting, most recent catheterization done less than a year ago revealed no obstructive stenosis. No restenosis in the proximal LAD stent, the distal RCA is 40%. CONCLUSION: 1. Diastolic congestive heart failure. 2. Aortic stenosis, moderate to severe. 3. Left thigh abscess. PLAN: Agree with antibiotics and diuretics. We will follow with you. PATTI
[2018-04-19] MEDS: Piperacillin/Tazobactam 2.25 GM in Sodium Chloride 0.9% 100 ML IVPB SCH ×4 (02:42→21:04)
[2018-04-19 05:43] LABS: Anion Gap 16 mmol/L (10-20); BUN (Urea Nitrogen) 53 mg/dL (9.8-20.1); Calc. Creatinine Clearance 34 mL/min (70-130); Calcium 9.3 mg/dL (7.8-10.44); Carbon Dioxide 31 mmol/L (23-31); Chloride 95 mmol/L (98-107); Estimated GFR-MDRD 34; Glucose 295 mg/dL (83-110); Potassium 3.5 mmol/L (3.5-5.1); Sodium 138 mmol/L (136-145)
[2018-04-19 05:54] LABS: #Eosinphils 0.1 thou/uL (0.0-0.7); #Lymphocytes 1.3 thou/uL (1.20-3.40); #Monocytes 0.8 thou/uL (0.11-0.59); #Neutrophils 10.2 thou/uL (1.40-6.50); %Basophils 0.1 % (0.0-1.0); %Eosinophils 0.6 % (0.0-10.0); %Lymphocytes 10.1 % (21.0-51.0); %Monocytes 6.6 % (0.0-10.0); %Neutrophils 82.7 % (42.0-75.0); Hemoglobin 10.4 g/dL (12.0-16.0); Mean Corpuscular Hemoglobin 28.6 pg (27.0-31.0); Mean Corpuscular Volume 92.1 fL (78.0-98.0); Mean Platelet Volume 6.8 fL (7.4-10.4); Platelet Count 299 thou/uL (130-400); RBC Distribution Width 15.1 % (11.5-14.5); Red Blood Cell (RBC) Count 3.63 mill/uL (4.20-5.40); White Blood Cell (WBC) Count 12.4 thou/uL (4.8-10.8)
[2018-04-19] MEDS ORDERED: Furosemide 40 MG/4 ML VIAL SLOW IVP SCH (06:00)
[2018-04-19] MEDS: Levothyroxine 150 MCG TAB PO SCH (06:42)
[2018-04-19] MEDS: Furosemide 40 MG/4 ML VIAL SLOW IVP SCH ×2 (06:43→14:52)
[2018-04-19] MEDS: Isosorbide Dinitrate 20 MG TAB PO SCH (08:46)
[2018-04-19] MEDS: Amiodarone 200 MG TAB PO SCH (08:46)
[2018-04-19] MEDS: Gabapentin 300 MG CAP PO SCH ×2 (08:46→16:10)
[2018-04-19] MEDS: Docusate 100 MG CAP PO SCH ×2 (08:46→21:04)
[2018-04-19] MEDS: Aspirin 325 MG TAB PO SCH (08:46)
[2018-04-19] MEDS: predniSONE 5 MG TAB PO SCH (08:47)
[2018-04-19] MEDS: Pantoprazole 40 MG GRANULES PACKET PO SCH ×2 (08:47→08:57)
[2018-04-19] MEDS: Lidocaine 5% Patch TD SCH (08:54)
[2018-04-19] MEDS ORDERED: Insulin Degludec [Tresiba Flextouch U-100] 60 UNIT SQ SCH (09:00)
[2018-04-19] MEDS ORDERED: INSULIN DEGLUDEC 60 UNIT SQ SCH (09:00)
[2018-04-19] MEDS: Carvedilol 3.125 MG TAB PO SCH ×2 (09:51→17:10)
[2018-04-19] MEDS: INSULIN GLARGINE SC SCH (12:01)
[2018-04-19] MEDS: Insulin NPH/Reg Insulin Hm 300 UNITS/3 ML VIAL SC SCH (12:11)
[2018-04-19] MEDS ORDERED: Metolazone 5 MG TAB PO SCH (13:15)
--- NOTE | 2018-04-19 13:25 | PRG ---
DATE OF SERVICE: 04/19/2018 SUBJECTIVE: Ms. Ivory is awake and alert, no complaints. She receiving antibiotics. OBJECTIVE: VITAL SIGNS: Blood pressure 140/60. Pulse 60, regular. LUNGS: Clear. CARDIAC: Normal S1, normal S2. There is aortic stenosis murmur. ABDOMEN: Soft, nontender. EXTREMITIES: Severe edema. ASSESSMENT: 1. Leg abscess, improved. 2. Diastolic heart failure, still volume overloaded. PLAN: Add metolazone. We will continue to follow with you.
[2018-04-19] MEDS ORDERED: Potassium Chloride 20 MEQ TAB PO SCH (14:30)
--- NOTE | 2018-04-19 15:50 | PDOC.PN ---
- Subjective Encounter Start Date: 04/19/18 Encounter Start Time: 15:30 Subjective: f/u for L thigh abscess showing E. coli spp tx with Zosyn. Feels better -: overall. No fever. - Objective Resuscitation Status: Resuscitation Status FULL:Full Resuscitation MAR Reviewed: Yes Vital Signs & Weight: Vital Signs (12 hours) Temp Pulse Resp BP BP Pulse Ox 04/19/18 12:14 97.9 F 63 18 141/61 H 95 04/19/18 07:35 97.4 F L 60 18 148/67 H 98 04/19/18 07:15 97.9 F 63 18 98 Weight Admit Weight 170 lb 6.677 oz Weight 164 lb 2 oz I&O: 04/18/18 04/19/18 04/20/18 06:59 06:59 06:59 Intake Total 480 1670 Output Total 300 2050 Balance 180 -380 Result Diagrams: 04/19/18 04:48 04/19/18 04:48 Additional Labs: Accuchecks 04/19/18 04/19/18 04/18/18 11:29 05:46 20:34 POC Glucose 240 H 369 H 331 H 04/18/18 16:50 POC Glucose 185 H Microbiology 04/17/18 14:34 Urine voided Urine Culture - Final Escherichia coli Proteus mirabilis 02/04/18 11:10 Urine Straight Catheter Urine Culture - Final Escherichia coli 02/04/18 11:10 Buttock - Pending Bacterial Culture - Final Proteus mirabilis Gram Negative Praveen#2 Presumptive Pseudomonas Enterococcus species 04/18/18 10:34 Thigh - Left Bacterial Culture - Preliminary 04/18/18 10:34 Thigh - Left Escherichia coli 04/18/18 10:34 Thigh - Left Bacterial Culture - Preliminary 04/17/18 15:28 Venous blood - Right Hand Blood Culture - Preliminary Specimen has been received and culture in progress. No Growth to date. 04/17/18 15:28 Venous blood - Right Hand Blood Culture - Preliminary NO GROWTH AT 48 HOURS 04/17/18 14:40 Venous blood - Left Hand Blood Culture - Preliminary Specimen has been received and culture in progress. No Growth to date. 04/17/18 14:40 Venous blood - Left Hand Blood Culture - Preliminary NO GROWTH AT 48 HOURS 04/17/18 14:34 Urine voided Urine Culture - Preliminary Gram Negative Praveen 02/04/18 11:10 Urine Straight Catheter Urine Culture - Preliminary Escherichia coli 02/04/18 11:10 Buttock - Pending Bacterial Culture - Preliminary 02/04/18 10:55 Venous blood - Left Arm Blood Culture - Preliminary Specimen has been received and culture in progress. No Growth to date. 02/04/18 10:55 Venous blood - Left Arm Blood Culture - Preliminary NO GROWTH AT 48 HOURS 02/04/18 10:46 Venous blood - Right Arm Blood Culture - Preliminary Specimen has been received and culture in progress. No Growth to date. 02/04/18 10:46 Venous blood - Right Arm Blood Culture - Preliminary NO GROWTH AT 48 HOURS Laboratory Tests 02/04/18 02/04/18 02/04/18 10:46 10:46 14:33 WBC 20.0 H Neutrophils % Neutrophils % (Manual) Band Neuts % (Manual) 19 H Potassium 3.1 L BUN 100 H Creatinine 2.47 H Lactic Acid 1.1 Troponin I B-Natriuretic Peptide Triglycerides Cholesterol LDL Cholesterol, Calc HDL Cholesterol Vancomycin Trough Random Vancomycin 02/05/18 02/05/18 02/06/18 03:50 14:51 04:31 WBC 13.3 H 8.3 Neutrophils % Neutrophils % (Manual) Band Neuts % (Manual) 20 H Potassium BUN Creatinine Lactic Acid Troponin I B-Natriuretic Peptide Triglycerides Cholesterol LDL Cholesterol, Calc HDL Cholesterol Vancomycin Trough Random Vancomycin 6.6 02/08/18 04/17/18 04/17/18 14:55 13:15 13:15 WBC Neutrophils % Neutrophils % (Manual) Band Neuts % (Manual) Potassium BUN Creatinine 1.56 H Lactic Acid Troponin I B-Natriuretic Peptide 264.1 H Triglycerides Cholesterol LDL Cholesterol, Calc HDL Cholesterol Vancomycin Trough 15.2 Random Vancomycin 04/17/18 04/17/18 04/17/18 13:15 13:15 13:15 WBC 23.8 H Neutrophils % Neutrophils % (Manual) 86 H Band Neuts % (Manual) Potassium BUN Creatinine Lactic Acid 2.4 H Troponin I 0.037 H B-Natriuretic Peptide Triglycerides Cholesterol LDL Cholesterol, Calc HDL Cholesterol Vancomycin Trough Random Vancomycin 04/17/18 04/17/18 04/17/18 17:50 17:50 21:27 WBC Neutrophils % Neutrophils % (Manual) Band Neuts % (Manual) Potassium BUN Creatinine Lactic Acid 1.9 Troponin I 0.049 H 0.028 B-Natriuretic Peptide Triglycerides Cholesterol LDL Cholesterol, Calc HDL Cholesterol Vancomycin Trough Random Vancomycin 04/17/18 04/18/18 04/18/18 21:27 01:19 01:19 WBC 20.3 H Neutrophils % 89.0 H Neutrophils % (Manual) Band Neuts % (Manual) Potassium BUN Creatinine Lactic Acid 2.9 H Troponin I B-Natriuretic Peptide Triglycerides 114 Cholesterol 98 LDL Cholesterol, Calc 39 HDL Cholesterol 36 Vancomycin Trough Random Vancomycin 04/18/18 01:19 WBC Neutrophils % Neutrophils % (Manual) Band Neuts % (Manual) Potassium BUN Creatinine Lactic Acid 2.4 H Troponin I B-Natriuretic Peptide Triglycerides Cholesterol LDL Cholesterol, Calc HDL Cholesterol Vancomycin Trough Random Vancomycin Radiology Reviewed by me: Yes (2D echo - mod-severe , EF 55%) EKG Reviewed by me: Yes (Tele - SR) Phys Exam - Physical Examination Constitutional: NAD HEENT: PERRLA, sclera anicteric, oral pharynx no lesions Neck: no nodes, no JVD, supple, full ROM Respiratory: no wheezing, no rales, no rhonchi, clear to auscultation bilateral S1, S2 Cardiovascular: RRR, no rub, gallop Gastrointestinal: soft, non-tender, no distention, positive bowel sounds L thigh with wound packing in place Musculoskeletal: pulses present, edema present Neurological: normal sensation, moves all 4 limbs Psychiatric: normal affect, A&O x 3 Deviation from normal: venous stasis dermatitis Skin: normal turgor, cap refill <2 seconds Dx/Plan (1) Abscess of left lower extremity Code(s): L02.416 - CUTANEOUS ABSCESS OF LEFT LOWER LIMB Status: Acute Comment: s/p I&D 04/18/18, continue Zosyn, await final wound cx results, pain control with Morphine Sulfate 4mg IV q2h prn, WCT for local care (2) Sepsis Code(s): A41.9 - SEPSIS, UNSPECIFIED ORGANISM Status: Acute Comment: Secondary to #1, continue Zosyn, monitor cx results (3) UTI (urinary tract infection) Status: Acute Comment: E. coli/Proteus ssp on Ucx, continue Zosyn and await final cx results (4) Stasis dermatitis of both legs Code(s): I83.11 - VARICOSE VEINS OF RIGHT LOWER EXTREMITY WITH INFLAMMATION; I83.12 - VARICOSE VEINS OF LEFT LOWER EXTREMITY WITH INFLAMMATION Status: Chronic Comment: WCT for local skin care (5) Hypokalemia Code(s): E87.6 - HYPOKALEMIA Status: Acute Comment: KCL replacement, serial monitoring (6) Demand ischemia of myocardium Code(s): I24.8 - OTHER FORMS OF ACUTE ISCHEMIC HEART DISEASE Status: Acute Comment: No ACS, medical mgmt (7) Stomatitis Code(s): K12.1 - OTHER FORMS OF STOMATITIS Status: Acute Comment: Magic Mouthwash TID prn - Plan continue antibiotics, PT/OT, drug abuse social worker Stable currently -: Continue Zosyn IV -: WCT for local care -: Change KCL 20meq TID -: Continue Lasix and Zaroxolyn * AM lab: BMP, CBC
[2018-04-19] MEDS: HumaLOG 300 UNITS/3 ML VIAL SC PRN ×2 (17:10→19:20)
[2018-04-19] MEDS: Atorvastatin Calcium 10 MG TAB PO SCH (21:04)
[2018-04-19] MEDS: Lorazepam 0.5 MG TAB PO SCH (21:04)
[2018-04-19] MEDS: Potassium Chloride 20 MEQ TAB PO SCH (21:04)
[2018-04-19] MEDS: Lidocaine Patch Removal 1 EACH TOP SCH (21:15)
[2018-04-19] MEDS: Aluminum & Magnesium Hydroxide 60 ML, diphenhydrAMINE 150 MG, Lidocaine 2% Viscous Solu... SSW PRN (23:57)
[2018-04-20] MEDS: Piperacillin/Tazobactam 2.25 GM in Sodium Chloride 0.9% 100 ML IVPB SCH ×3 (03:17→14:54)
[2018-04-20] MEDS: Furosemide 40 MG/4 ML VIAL SLOW IVP SCH ×2 (06:04→15:55)
[2018-04-20] MEDS: Levothyroxine 150 MCG TAB PO SCH (06:04)
[2018-04-20 06:07] LABS: Hemoglobin 10.9 g/dL (12.0-16.0); Hypochromia SLIGHT = 6-15 cells (100X) (0-5/hpf); Lymphocytes 17 % (21-51); MDiff Complete? YES; Mean Corpuscular HGB CONC 31.4 g/dL (32.0-36.0); Mean Corpuscular Hemoglobin 28.3 pg (27.0-31.0); Mean Corpuscular Volume 90.2 fL (78.0-98.0); Mean Platelet Volume 6.9 fL (7.4-10.4); Monocytes 11 % (0-10); Neutrophil 72 % (42-75); PLT Morphology Comment Appears Adequate; Platelet Count 304 thou/uL (130-400); RBC Distribution Width 14.8 % (11.5-14.5); Red Blood Cell (RBC) Count 3.84 mill/uL (4.20-5.40); White Blood Cell (WBC) Count 7.5 thou/uL (4.8-10.8)
[2018-04-20 06:13] LABS: Anion Gap 16 mmol/L (10-20); BUN (Urea Nitrogen) 47 mg/dL (9.8-20.1); Calc. Creatinine Clearance 39 mL/min (70-130); Calcium 9.9 mg/dL (7.8-10.44); Carbon Dioxide 31 mmol/L (23-31); Chloride 99 mmol/L (98-107); Estimated GFR-MDRD 39; Glucose 167 mg/dL (83-110); Potassium 3.6 mmol/L (3.5-5.1); Sodium 142 mmol/L (136-145)
[2018-04-20] MEDS: Docusate 100 MG CAP PO SCH ×2 (08:33→22:03)
[2018-04-20] MEDS: Amiodarone 200 MG TAB PO SCH (08:33)
[2018-04-20] MEDS: Aspirin 325 MG TAB PO SCH (08:33)
[2018-04-20] MEDS: Carvedilol 3.125 MG TAB PO SCH ×2 (08:33→16:44)
[2018-04-20] MEDS: predniSONE 5 MG TAB PO SCH (08:34)
[2018-04-20] MEDS: Potassium Chloride 20 MEQ TAB PO SCH ×3 (08:34→22:04)
[2018-04-20] MEDS: Isosorbide Dinitrate 20 MG TAB PO SCH (08:34)
[2018-04-20] MEDS ORDERED: Potassium Chloride 20 MEQ TAB PO SCH (09:00)
[2018-04-20] MEDS: INSULIN GLARGINE SC SCH (09:01)
[2018-04-20] MEDS: Lidocaine 5% Patch TD SCH (09:06)
[2018-04-20] MEDS ORDERED: Metolazone 5 MG TAB PO SCH (10:00)
[2018-04-20] MEDS: Insulin NPH/Reg Insulin Hm 300 UNITS/3 ML VIAL SC SCH (11:01)
--- NOTE | 2018-04-20 11:57 | PRG ---
DATE OF SERVICE: 04/20/2018 SUBJECTIVE: Ms. Ivory is status post I&D of left thigh abscess. She is complaining of pain at the site today. PHYSICAL EXAMINATION: She is afebrile. Her vital signs are stable. Examination of the wound reveal s there to be no ongoing purulence. The packing is in place. There is minimal surrounding erythema, improved. ASSESSMENT: Left thigh abscess. PLAN: Continue wet to dry with iodoform. I suspect this to resolve over the next few weeks.
[2018-04-20] MEDS ORDERED: Furosemide 40 MG TAB PO SCH (15:00)
--- NOTE | 2018-04-20 15:37 | PDOC.PN ---
- Subjective Encounter Start Date: 04/20/18 Encounter Start Time: 15:36 No complaints today. Still has some swelling in the LE's. Not interested in talking about any disposition other than home. - Objective Resuscitation Status: Resuscitation Status FULL:Full Resuscitation Vital Signs & Weight: Vital Signs (12 hours) Temp Pulse Pulse Pulse Resp BP BP 04/20/18 12:35 97.8 F 93 18 04/20/18 10:15 68 70 165/72 H 213/88 H 04/20/18 07:20 98.1 F 71 18 04/20/18 07:05 97.8 F 93 18 BP BP Pulse Ox 04/20/18 12:35 122/56 L 98 04/20/18 10:15 04/20/18 07:20 153/69 H 98 04/20/18 07:05 98 Weight Admit Weight 170 lb 6.677 oz Weight 163 lb 3.2 oz I&O: 04/19/18 04/20/18 04/21/18 06:59 06:59 06:59 Intake Total 1670 1688 Output Total 2050 2370 Balance -380 -702 Result Diagrams: 04/20/18 04:33 04/20/18 04:33 Additional Labs: Accuchecks 04/20/18 04/20/18 04/19/18 10:53 05:14 20:37 POC Glucose 131 H 191 H 175 H 04/19/18 16:29 POC Glucose 249 H Phys Exam - Physical Examination Constitutional: NAD Severe thoracic kyphosis. Respiratory: no wheezing, no rales, no rhonchi, clear to auscultation bilateral Cardiovascular: RRR, no significant murmur, no rub Gastrointestinal: soft, non-tender, no distention, positive bowel sounds BLE stasis edema and dermatitis. Left prox ant. thigh abscess packed. Neurological: non-focal Psychiatric: normal affect, A&O x 3 Dx/Plan (1) Abscess of left lower extremity Code(s): L02.416 - CUTANEOUS ABSCESS OF LEFT LOWER LIMB Status: Acute Comment: s/p I&D 04/18/18, continue Zosyn, await final wound cx results, pain control with Morphine Sulfate 4mg IV q2h prn, WCT for local care (2) UTI (urinary tract infection) Status: Acute Comment: E. coli/Proteus ssp on Ucx, continue Zosyn and await final cx results (3) ANUM (acute kidney injury) Code(s): N17.9 - ACUTE KIDNEY FAILURE, UNSPECIFIED Status: Acute (4) Cellulitis of lower extremity Code(s): L03.119 - CELLULITIS OF UNSPECIFIED PART OF LIMB Status: Acute Qualifiers: Laterality: right Qualified Code(s): L03.115 - Cellulitis of right lower limb Comment: with stasis dermatitis and wound (5) Diabetes type 2, controlled Code(s): E11.9 - TYPE 2 DIABETES MELLITUS WITHOUT COMPLICATIONS Status: Chronic Qualifiers: Diabetes mellitus software engineer insulin use: with software engineer use Diabetes mellitus complication status: with kidney complications Diabetes mellitus complication detail: with chronic kidney disease Chronic kidney disease stage : stage 3 (moderate) Qualified Code(s): E11.22 - Type 2 diabetes mellitus with diabetic chronic kidney disease; N18.3 - Chronic kidney disease, stage 3 ( moderate); N18.3 - Chronic kidney disease, stage 3 (moderate); N18.3 - Chronic kidney disease, stage 3 (moderate); Z79.4 - [facility] (current) use of insulin; Z79.4 - textile conservator (current) use of insulin; Z79.4 - textile conservator (current) use of insulin; Z79.4 - [facility] (current) use of insulin Comment: (6) Hypertension Code(s): I10 - ESSENTIAL (PRIMARY) HYPERTENSION Status: Chronic Qualifiers: Hypertension type: essential hypertension (7) Severe aortic stenosis by prior echocardiogram Code(s): I35.0 - NONRHEUMATIC AORTIC (VALVE) STENOSIS Status: Chronic (8) Stasis dermatitis of both legs Code(s): I83.11 - VARICOSE VEINS OF RIGHT LOWER EXTREMITY WITH INFLAMMATION; I83.12 - VARICOSE VEINS OF LEFT LOWER EXTREMITY WITH INFLAMMATION Status: Chronic Comment: WCT for local skin care - Plan * E coli in urine and abscess of the thigh. Can change to oral abx. Change the Lasix and Metolazone to oral. Anticipate discharge in the morning. .
--- NOTE | 2018-04-20 17:37 | PRG ---
DATE OF SERVICE: 04/20/2018 SUBJECTIVE: Ms. Ivory feels better today. Her breathing has improved. No chest pain. OBJECTIVE: VITAL SIGNS: Blood pressure 138/65, pulse 63, regular. LUNGS: Clear. CARDIAC: Normal S1, normal S2. She has a high pitched crescendo decrescendo murmur heard, which is aortic stenosis. ABDOMEN: Soft, nontender. EXTREMITIES: Moderate edema. The patient's I and O, her output was 2.37 liters. ASSESSMENT: 1. Diastolic heart failure. 2. Aortic stenosis. 3. Status post drainage of an abscess, improved. PLAN: 1. Continue diuretic therapy. 2. Recheck base met tomorrow. Continue to follow with you.
[2018-04-20] MEDS ORDERED: Polyethylene Glycol 3350 17 GM Packet PO SCH (20:15)
[2018-04-20] MEDS: Amoxicillin/Potassium Clav 875 MG TAB PO SCH (22:03)
[2018-04-20] MEDS: Atorvastatin Calcium 10 MG TAB PO SCH (22:03)
[2018-04-20] MEDS: Lorazepam 0.5 MG TAB PO SCH (22:03)
[2018-04-20] MEDS: Lidocaine Patch Removal 1 EACH TOP SCH (22:04)
[2018-04-21] MEDS ORDERED: hydrALAZINE 20 MG/ML VIAL SLOW IVP PRN (02:35)
[2018-04-21] MEDS ORDERED: Fleet Enema 133 ML BOT FS SCH (03:00)
[2018-04-21] MEDS ORDERED: Lorazepam 0.5 MG TAB PO SCH (03:45)
[2018-04-21] MEDS ORDERED: Bisacodyl 10 MG SUPP PR SCH (03:45)
[2018-04-21 07:01] LABS: Anion Gap 12 mmol/L (10-20); BUN (Urea Nitrogen) 42 mg/dL (9.8-20.1); Calc. Creatinine Clearance 42 mL/min (70-130); Carbon Dioxide 35 mmol/L (23-31); Chloride 99 mmol/L (98-107); Estimated GFR-MDRD 42; Glucose 91 mg/dL (83-110); Potassium 3.2 mmol/L (3.5-5.1); Sodium 143 mmol/L (136-145)
[2018-04-21] MEDS: Levothyroxine 150 MCG TAB PO SCH (07:10)
[2018-04-21] MEDS: Insulin NPH/Reg Insulin Hm 300 UNITS/3 ML VIAL SC SCH (09:15)
[2018-04-21] MEDS: Carvedilol 3.125 MG TAB PO SCH ×2 (10:22→17:14)
[2018-04-21] MEDS: Amiodarone 200 MG TAB PO SCH (10:23)
[2018-04-21] MEDS: Amoxicillin/Potassium Clav 875 MG TAB PO SCH ×2 (10:23→21:39)
[2018-04-21] MEDS: Metolazone 5 MG TAB PO SCH (10:23)
[2018-04-21] MEDS: Docusate 100 MG CAP PO SCH ×2 (10:24→21:39)
[2018-04-21] MEDS: Potassium Chloride 20 MEQ TAB PO SCH ×3 (10:24→21:39)
[2018-04-21] MEDS: Aspirin 325 MG TAB PO SCH (10:24)
[2018-04-21] MEDS: predniSONE 5 MG TAB PO SCH (10:24)
[2018-04-21] MEDS: Isosorbide Dinitrate 20 MG TAB PO SCH (10:25)
[2018-04-21] MEDS: Polyethylene Glycol 3350 17 GM Packet PO SCH (10:25)
[2018-04-21] MEDS: Lidocaine 5% Patch TD SCH (10:25)
[2018-04-21] MEDS: Furosemide 40 MG TAB PO SCH ×2 (10:53→13:55)
[2018-04-21] MEDS: INSULIN GLARGINE SC SCH (10:55)
[2018-04-21] MEDS ORDERED: diphenhydrAMINE 25 MG CAP PO SCH (13:45)
--- NOTE | 2018-04-21 15:16 | PDOC.PN ---
- Subjective Encounter Start Date: 04/21/18 Subjective: feeels unwell.c/o constipation despite a big Bm this morning -: multiple non specific complaints -: does not want to go to Rehab.refusing appointments - Objective Resuscitation Status: Resuscitation Status FULL:Full Resuscitation MAR Reviewed: Yes Vital Signs & Weight: Vital Signs (12 hours) Temp Pulse Resp BP BP Pulse Ox 04/21/18 12:15 96 04/21/18 11:34 97.6 F 69 18 126/58 L 96 04/21/18 07:45 97.9 F 67 18 135/63 97 04/21/18 07:25 97.6 F 69 18 96 04/21/18 04:00 98.3 F 70 19 121/66 99 Weight Admit Weight 170 lb 6.677 oz Weight 165 lb 1.6 oz I&O: 04/20/18 04/21/18 04/22/18 06:59 06:59 06:59 Intake Total 1688 950 Output Total 4630 7775 Balance -139 -818 Result Diagrams: 04/20/18 04:33 04/21/18 06:26 Additional Labs: Accuchecks 04/21/18 04/21/18 04/21/18 11:00 09:02 05:53 POC Glucose 117 H 144 H 80 04/20/18 04/20/18 04/20/18 20:36 18:31 16:23 POC Glucose 186 H 231 H 149 H Microbiology 04/17/18 14:34 Urine voided Urine Culture - Final Escherichia coli Proteus mirabilis 04/18/18 10:34 Thigh - Left Bacterial Culture - Preliminary 04/18/18 10:34 Thigh - Left Anaerobic Culture - Preliminary Escherichia coli 04/17/18 15:28 Venous blood - Right Hand Blood Culture - Preliminary NO GROWTH AT 48 HOURS 04/17/18 14:40 Venous blood - Left Hand Blood Culture - Preliminary NO GROWTH AT 48 HOURS Laboratory Tests 04/17/18 04/19/18 04/20/18 13:15 04:48 04:33 Creatinine 1.56 H 1.49 H 1.31 H 04/21/18 06:26 Creatinine 1.22 H Phys Exam - Physical Examination Constitutional: NAD HEENT: PERRLA, moist MMs, sclera anicteric, oral pharynx no lesions Neck: no nodes, no JVD, supple, full ROM Respiratory: no wheezing, no rales, no rhonchi, clear to auscultation bilateral Cardiovascular: RRR, no significant murmur, no rub Gastrointestinal: soft, non-tender, no distention, positive bowel sounds Musculoskeletal: no edema, pulses present Neurological: non-focal, normal sensation, moves all 4 limbs Psychiatric: normal affect, A&O x 3 Skin: no rash Dx/Plan (1) Abscess of left lower extremity Code(s): L02.416 - CUTANEOUS ABSCESS OF LEFT LOWER LIMB Status: Acute Comment: s/p I&D 04/18/18, continue Zosyn, await final wound cx results, pain control with Morphine Sulfate 4mg IV q2h prn, WCT for local care (2) Demand ischemia of myocardium Code(s): I24.8 - OTHER FORMS OF ACUTE ISCHEMIC HEART DISEASE Status: Acute Comment: No ACS, medical mgmt (3) Sepsis Code(s): A41.9 - SEPSIS, UNSPECIFIED ORGANISM Status: Acute Comment: Secondary to #1, continue Zosyn, monitor cx results (4) UTI (urinary tract infection) Status: Acute Comment: E. coli/Proteus ssp on Ucx, continue Zosyn and await final cx results (5) ANUM (acute kidney injury) Code(s): N17.9 - ACUTE KIDNEY FAILURE, UNSPECIFIED Status: Acute (6) Cellulitis of lower extremity Code(s): L03.119 - CELLULITIS OF UNSPECIFIED PART OF LIMB Status: Acute Qualifiers: Laterality: right Qualified Code(s): L03.115 - Cellulitis of right lower limb Comment: with stasis dermatitis and wound (7) Hypokalemia Code(s): E87.6 - HYPOKALEMIA Status: Acute Comment: KCL replacement, serial monitoring (8) CKD (chronic kidney disease), stage III Code(s): N18.3 - CHRONIC KIDNEY DISEASE, STAGE 3 (MODERATE) Status: Chronic Comment: (9) Coronary artery disease Code(s): I25.10 - ATHSCL HEART DISEASE OF [place] CORONARY ARTERY W/O ANG PCTRS Status: Chronic Qualifiers: Coronary Disease-Associated Artery/Lesion type: [place] artery [place] vs. transplanted heart: [place] heart Associated angina: without angina Qualified Code(s): I25.10 - Atherosclerotic heart disease of [place] coronary artery without angina pectoris (10) Diabetes type 2, controlled Code(s): E11.9 - TYPE 2 DIABETES MELLITUS WITHOUT COMPLICATIONS Status: Chronic Qualifiers: Diabetes mellitus exterminator helper termite insulin use: with halfway use Diabetes mellitus complication status: with kidney complications Diabetes mellitus complication detail: with chronic kidney disease Chronic kidney disease stage : stage 3 (moderate) Qualified Code(s): E11.22 - Type 2 diabetes mellitus with diabetic chronic kidney disease; N18.3 - Chronic kidney disease, stage 3 ( moderate); N18.3 - Chronic kidney disease, stage 3 (moderate); N18.3 - Chronic kidney disease, stage 3 (moderate); Z79.4 - [facility] (current) use of insulin; Z79.4 - [facility] (current) use of insulin; Z79.4 - [facility] (current) use of insulin; Z79.4 - [facility] (current) use of insulin Comment: (11) Dyslipidemia Code(s): E78.5 - HYPERLIPIDEMIA, UNSPECIFIED Status: Chronic (12) GERD (gastroesophageal reflux disease) Code(s): K21.9 - GASTRO-ESOPHAGEAL REFLUX DISEASE WITHOUT ESOPHAGITIS Status: Chronic Qualifiers: Esophagitis presence: esophagitis presence not specified (13) Hypertension Code(s): I10 - ESSENTIAL (PRIMARY) HYPERTENSION Status: Chronic Qualifiers: Hypertension type: essential hypertension (14) Hypothyroidism Code(s): E03.9 - HYPOTHYROIDISM, UNSPECIFIED Status: Chronic Qualifiers: Comment: (15) Paroxysmal atrial fibrillation Code(s): I48.0 - PAROXYSMAL ATRIAL FIBRILLATION Status: Chronic - Plan PT/OT, respiratory therapy, incentive spirometry, out of bed/ambulate, DVT proph w/SCDs Diurese. Po lasix. Po augmentin -: DC home tomorrow if stable. -: .refuses Rehab -: high risk of re admisison due to non compliance & poor care at home * . Review of Systems - Review of Systems Constitutional: weakness, malaise. negative: fever, chills, sweats, other ENT: negative: Ear Pain, Ear Discharge, Nose Pain, Nose Discharge, Nose Congestion, Mouth Pain, Mouth Swelling, Throat Pain, Throat Swelling, Other Respiratory: SOB with Excertion. negative: Cough, Dry, Shortness of Breath, Hemoptysis, Pleuritic Pain, Sputum, Wheezing Cardiovascular: chest pain. negative: palpitations, orthopnea, paroxysmal nocturnal dyspnea, edema, light headedness, other Gastrointestinal: negative: Nausea, Vomiting, Abdominal Pain, Diarrhea, Constipation, Melena, Hematochezia, Other Genitourinary: negative: Dysuria, Frequency, Incontinence, Hematuria, Retention , Other Musculoskeletal: Neck Pain, Shoulder Pain, Back Pain. negative: Arm Pain, Hand Pain, Leg Pain, Foot Pain, Other Skin: negative: Rash, Lesions, Carroll, Bruising, Other Neurological: negative: Weakness, Numbness, Incoordination, Change in Speech, Confusion, Seizures, Other - Medications/Allergies Allergies/Adverse Reactions: Allergies Allergy/AdvReac Type Severity Reaction Status Date / Time hydrocodone [From [employer]] Allergy Verified 04/17/18 22:23 Medications: Current Medications Acetaminophen (Tylenol) 650 mg PO Q4H PRN PRN Reason: Headache/Fever or Pain Last Admin: 04/17/18 22:29 Dose: 650 mg Amiodarone HCl (Cordarone) 200 mg PO DAILY [facility] Last Admin: 04/21/18 10:23 Dose: 200 mg Amoxicillin/Clavulanate Potassium (Augmentin) 875 mg PO Q12HR [facility] Last Admin: 04/21/18 10:23 Dose: 875 mg Aspirin (Aspirin) 325 mg PO DAILY [facility] Last Admin: 04/21/18 10:24 Dose: 325 mg Atorvastatin Calcium (Lipitor) 10 mg PO HS [facility] Last Admin: 04/20/18 22:03 Dose: 10 mg Carvedilol (Coreg) 3.125 mg PO BID-WM [facility] Last Admin: 04/21/18 10:22 Dose: 3.125 mg Al Hydroxide/Mg Hydroxide 60 ml/ Diphenhydramine HCl 150 mg / Lidocaine HCl 60 ml/Nystatin 6,000,000 units 0 ml SSW PRN PRN PRN Reason: Mouth Irritation Last Admin: 04/19/18 23:57 Dose: 10 ml Dextrose/Water (Dextrose 50%) 25 gm SLOW IVP PRN PRN PRN Reason: Hypoglycemia Docusate Sodium (Colace) 100 mg PO BID [facility] Last Admin: 04/21/18 10:24 Dose: 100 mg Furosemide (Lasix) 40 mg PO 0900,1400 [facility] Last Admin: 04/21/18 13:55 Dose: 40 mg Glucagon (Glucagon) 1 mg IM PRN PRN PRN Reason: Hypoglycemia Hydralazine HCl (Apresoline) 10 mg SLOW IVP Q4H PRN PRN Reason: FOR SBP > 180 /DBP >100 Dextrose/Water (D5w) 1,000 mls @ 0 mls/hr IV .Q0M PRN PRN Reason: Hypoglycemia Insulin Glargine 60 units/ (Syringe) 0.6 mls @ 0 mls/hr SC DAILY [facility] Last Admin: 04/21/18 10:55 Dose: Not Given Insulin Human Isoph/Insulin Regular (Humulin 70/30) 45 units SC QAM [facility] Last Admin: 04/21/18 09:15 Dose: Not Given Insulin Human Lispro (Humalog) 0 units SC .BEDTIME SLIDING SC PRN PRN Reason: Bedtime Correctional Scale Last Admin: 04/18/18 23:00 Dose: 4 units Insulin Human Lispro (Humalog) 0 units SC .AGGRESSIVE SLIDING PRN PRN Reason: Aggressive Correctional Scale Last Admin: 04/19/18 19:20 Dose: 6 unit Isosorbide Dinitrate (Isordil) 10 mg PO DAILY [facility] Last Admin: 04/21/18 10:25 Dose: 10 mg Levothyroxine Sodium (Synthroid) 150 mcg PO 0600 [facility] Last Admin: 04/21/18 07:10 Dose: 150 mcg Lidocaine (Lidoderm 5% Patch) 1 patch TD DAILY [facility] Last Admin: 04/21/18 10:25 Dose: 1 patch Lorazepam (Ativan) 0.5 mg PO HS [facility] Last Admin: 04/20/18 22:03 Dose: 0.5 mg Metolazone (Zaroxolyn) 5 mg PO 0830 [facility] Last Admin: 04/21/18 10:23 Dose: 5 mg Miscellaneous Medication (Lidocaine Patch Removal) 1 each TOP 2100 [facility] Last Admin: 04/20/18 22:04 Dose: Not Given Morphine Sulfate (Morphine) 4 mg SLOW IVP Q2H PRN PRN Reason: Mild-Moderate Pain (1-5) Last Admin: 04/21/18 11:29 Dose: 4 mg Nitroglycerin (Nitrostat) 0.4 mg PO Q5MIN PRN PRN Reason: Chest Pain Pantoprazole Sodium (Protonix) 40 mg PO DAILY [facility] Last Admin: 04/21/18 10:53 Dose: 40 mg Polyethylene Glycol (Miralax) 17 gm PO DAILY [facility] Last Admin: 04/21/18 10:25 Dose: 17 gm Potassium Chloride (K-Dur) 20 meq PO TID [facility] Last Admin: 04/21/18 10:24 Dose: 20 meq Prednisone (Prednisone) 10 mg PO DAILY [facility] Last Admin: 04/21/18 10:24 Dose: 10 mg Sodium Chloride (Flush - Normal Saline) 10 ml IVF Q12HR [facility] Last Admin: 04/21/18 10:57 Dose: 10 ml Sodium Chloride (Flush - Normal Saline) 10 ml IVF PRN PRN PRN Reason: Saline Flush Last Admin: 04/20/18 06:04 Dose: 10 ml Tramadol HCl (Ultram) 50 mg PO Q4H PRN PRN Reason: Mild-Moderate Pain (1-5) Tramadol HCl (Ultram) 100 mg PO Q4H PRN PRN Reason: Moderate to Severe Pain (6-10) Last Admin: 04/18/18 12:46 Dose: 100 mg
[2018-04-21] MEDS: Nitroglycerin 0.4 MG TAB (25 Tab Bottle) PO PRN ×3 (15:42→15:54)
[2018-04-21] MEDS: HumaLOG 300 UNITS/3 ML VIAL SC PRN (17:16)
--- NOTE | 2018-04-21 18:23 | PRG ---
DATE OF SERVICE: 04/21/2018 SUBJECTIVE: Ms. Ivory feels miserable. She feels nauseated, feels like she has burning all over an d intermittently still feels short of breath. PHYSICAL EXAMINATION: VITAL SIGNS: Blood pressure 134/79, pulse 73. LUNGS: Clear anteriorly and laterally. CARDIAC: Aortic stenosis, murmur as before. ABDOMEN: Soft, nontender. EXTREMITIES: There is still [id number] edema. PERTINENT LABORATORY DATA: Potassium is 3.2. ASSESSMENT: 1. Nausea. 2. Aortic stenosis. 3. Recent drainage of the thigh abscess. PLAN: 1. Give her some Zofran. 2. Continue antibiotics. 3. Reassess tomorrow.
[2018-04-21] MEDS ORDERED: Ondansetron HCl/PF 4 MG in Sodium Chloride 0.9% 50 ML IVPB SCH (18:30)
[2018-04-21] MEDS: Ondansetron ODT 4 MG TAB PO PRN (19:36)
[2018-04-21] MEDS: Lorazepam 0.5 MG TAB PO SCH (21:39)
[2018-04-21] MEDS: Atorvastatin Calcium 10 MG TAB PO SCH (21:39)
[2018-04-21] MEDS: Lidocaine Patch Removal 1 EACH TOP SCH (21:46)
[2018-04-22 06:18] LABS: Anion Gap 11 mmol/L (10-20); BUN (Urea Nitrogen) 38 mg/dL (9.8-20.1); Calc. Creatinine Clearance 38 mL/min (70-130); Calcium 9.5 mg/dL (7.8-10.44); Carbon Dioxide 36 mmol/L (23-31); Chloride 100 mmol/L (98-107); Estimated GFR-MDRD 39; Glucose 76 mg/dL (83-110); Potassium 3.6 mmol/L (3.5-5.1); Sodium 143 mmol/L (136-145)
[2018-04-22] MEDS: Levothyroxine 150 MCG TAB PO SCH (07:13)
--- NOTE | 2018-04-22 08:10 | RAD ---
SINGLE VIEW CHEST: Date: 04/22/18 COMPARISON: 04/17/18. HISTORY: Congestive heart failure. FINDINGS: Single view of the chest shows an enlarged but stable cardiomediastinal silhouette. There is no evide nce of consolidation, mass, or pleural effusion. Cardiac monitoring device projects over the left ed[address] st wall. IMPRESSION: Stable cardiomegaly. POS: CET
[2018-04-22] MEDS: Ondansetron ODT 4 MG TAB PO PRN ×2 (08:13→14:18)
[2018-04-22] MEDS: Lidocaine 5% Patch TD SCH (09:04)
[2018-04-22] MEDS: Metolazone 5 MG TAB PO SCH (09:05)
[2018-04-22] MEDS: Amoxicillin/Potassium Clav 875 MG TAB PO SCH ×2 (09:05→22:19)
[2018-04-22] MEDS: Polyethylene Glycol 3350 17 GM Packet PO SCH (09:05)
[2018-04-22] MEDS: Aspirin 325 MG TAB PO SCH (09:05)
[2018-04-22] MEDS: Amiodarone 200 MG TAB PO SCH (09:06)
[2018-04-22] MEDS: Docusate 100 MG CAP PO SCH ×2 (09:07→22:20)
[2018-04-22] MEDS: Furosemide 40 MG TAB PO SCH (09:07)
[2018-04-22] MEDS: predniSONE 5 MG TAB PO SCH (09:07)
[2018-04-22] MEDS: Potassium Chloride 20 MEQ TAB PO SCH ×3 (09:07→22:20)
[2018-04-22] MEDS: INSULIN GLARGINE SC SCH (09:08)
[2018-04-22] MEDS: Isosorbide Dinitrate 20 MG TAB PO SCH (09:08)
[2018-04-22] MEDS: Insulin NPH/Reg Insulin Hm 300 UNITS/3 ML VIAL SC SCH (09:09)
--- NOTE | 2018-04-22 09:39 | PRG ---
DATE OF SERVICE: 04/22/2018 SUBJECTIVE: Ms. Ivory is feeling somewhat better today, but states she still feels short of breath. No chest pain today. PHYSICAL EXAMINATION: VITAL SIGNS: Blood pressure 158/70 and pulse is 78 and regular. LUNGS: Clear. CARDIAC: Normal S1 and normal S2. There is an aortic stenosis murmur as before. ABDOMEN: Soft, nontender. EXTREMITIES: There is [id number] edema. ASSESSMENT: 1. Congestive heart failure, systolic, diastolic mixed. 2. Thigh infection of uncertain etiology, open to air, allowing to be healing from inside out. 3. Aortic stenosis on the echocardiogram. It only appears to be moderate, but it is really unclear. At some point, we will need right and left heart catheterization to see if she has low flow, low-gr adient aortic stenosis. Unfortunately, however, cannot be a candidate for valve replacement at this time with these infections, which are of unknown etiology. Long-term prognosis is guarded. We will resume intravenous diuretics at this time.
[2018-04-22] MEDS: Acetaminophen 325 MG TAB PO PRN ×3 (10:25→23:11)
--- NOTE | 2018-04-22 12:13 | EKG ---
Test Reason : STAT Blood Pressure : / mmHG Vent. Rate : 066 BPM Atrial Rate : 066 BPM P-R Int : 198 ms QRS Dur : 062 ms QT Int : 420 ms P-R-T Axes : 085 -13 059 degrees QTc Int : 440 ms Normal sinus rhythm Moderate voltage criteria for LVH, may be normal variant Inferior infarct (cited on or before 24-OCT-2017) Abnormal ECG Confirmed by IVY GOLDBERG ([id number]) on 04/22/2018 12:13:30 PM Referred By: Confirmed By:IVY GOLDBERG
[2018-04-22] MEDS: Furosemide 40 MG/4 ML VIAL SLOW IVP SCH (13:16)
--- NOTE | 2018-04-22 13:54 | PDOC.PN ---
- Subjective Encounter Start Date: 04/22/18 Encounter Start Time: 13:53 Subjective: c/o nausea,choking on food.says that she gan all over -: c/o SOB,weakness - Objective Resuscitation Status: Resuscitation Status FULL:Full Resuscitation MAR Reviewed: Yes Vital Signs & Weight: Vital Signs (12 hours) Temp Pulse Resp BP Pulse Ox 04/22/18 11:15 97.8 F 68 16 133/62 93 L 04/22/18 07:45 98.6 F 67 14 160/70 H 97 04/22/18 07:05 98.6 F 67 14 97 Weight Admit Weight 170 lb 6.677 oz Weight 162 lb I&O: 04/21/18 04/22/18 04/23/18 06:59 06:59 06:59 Intake Total 950 920 Output Total 1675 1420 Balance -725 -500 Result Diagrams: 04/20/18 04:33 04/22/18 04:39 Additional Labs: Accuchecks 04/22/18 04/22/18 04/21/18 11:05 06:18 21:05 POC Glucose 119 H 109 72 04/21/18 16:45 POC Glucose 255 H Microbiology 04/18/18 10:34 Thigh - Left Bacterial Culture - Final 04/18/18 10:34 Thigh - Left Anaerobic Culture - Final Escherichia coli 04/17/18 14:34 Urine voided Urine Culture - Final Escherichia coli Proteus mirabilis 04/17/18 15:28 Venous blood - Right Hand Blood Culture - Preliminary NO GROWTH AT 48 HOURS 04/17/18 14:40 Venous blood - Left Hand Blood Culture - Preliminary NO GROWTH AT 48 HOURS Laboratory Tests 04/05/18 04/11/18 04/17/18 10:30 09:00 13:15 Creatinine 1.62 H 1.81 H 1.56 H 04/19/18 04/20/18 04/21/18 04:48 04:33 06:26 Creatinine 1.49 H 1.31 H 1.22 H 04/22/18 04:39 Creatinine 1.32 H Phys Exam - Physical Examination Constitutional: NAD appears weak and pale & uncomfortable HEENT: PERRLA, moist MMs, sclera anicteric, oral pharynx no lesions Neck: no nodes, no JVD, supple, full ROM Respiratory: no wheezing, no rales, no rhonchi, clear to auscultation bilateral Cardiovascular: RRR, no significant murmur Gastrointestinal: soft, non-tender, no distention, positive bowel sounds Musculoskeletal: no edema, pulses present Neurological: non-focal, normal sensation, moves all 4 limbs Psychiatric: A&O x 3 Deviation from normal: agitated Skin: no rash Dx/Plan (1) Abscess of left lower extremity Code(s): L02.416 - CUTANEOUS ABSCESS OF LEFT LOWER LIMB Status: Acute Comment: s/p I&D 04/18/18, continue Zosyn, await final wound cx results, pain control with Morphine Sulfate 4mg IV q2h prn, WCT for local care (2) Demand ischemia of myocardium Code(s): I24.8 - OTHER FORMS OF ACUTE ISCHEMIC HEART DISEASE Status: Acute Comment: No ACS, medical mgmt (3) Sepsis Code(s): A41.9 - SEPSIS, UNSPECIFIED ORGANISM Status: Acute Comment: Secondary to #1, continue Zosyn, monitor cx results (4) UTI (urinary tract infection) Status: Acute Comment: E. coli/Proteus ssp on Ucx, continue Zosyn and await final cx results (5) ANUM (acute kidney injury) Code(s): N17.9 - ACUTE KIDNEY FAILURE, UNSPECIFIED Status: Acute (6) Cellulitis of lower extremity Code(s): L03.119 - CELLULITIS OF UNSPECIFIED PART OF LIMB Status: Acute Qualifiers: Laterality: right Qualified Code(s): L03.115 - Cellulitis of right lower limb Comment: with stasis dermatitis and wound (7) Hypokalemia Code(s): E87.6 - HYPOKALEMIA Status: Acute Comment: KCL replacement, serial monitoring (8) CKD (chronic kidney disease), stage III Code(s): N18.3 - CHRONIC KIDNEY DISEASE, STAGE 3 (MODERATE) Status: Chronic Comment: (9) Coronary artery disease Code(s): I25.10 - ATHSCL HEART DISEASE OF [place] CORONARY ARTERY W/O ANG PCTRS Status: Chronic Qualifiers: Coronary Disease-Associated Artery/Lesion type: [place] artery [place] vs. transplanted heart: [place] heart Associated angina: without angina Qualified Code(s): I25.10 - Atherosclerotic heart disease of [place] coronary artery without angina pectoris Comment: on ASA,statin,BB (10) Diabetes type 2, controlled Code(s): E11.9 - TYPE 2 DIABETES MELLITUS WITHOUT COMPLICATIONS Status: Chronic Qualifiers: Diabetes mellitus station operator insulin use: with group home use Diabetes mellitus complication status: with kidney complications Diabetes mellitus complication detail: with chronic kidney disease Chronic kidney disease stage : stage 3 (moderate) Qualified Code(s): E11.22 - Type 2 diabetes mellitus with diabetic chronic kidney disease; N18.3 - Chronic kidney disease, stage 3 ( moderate); N18.3 - Chronic kidney disease, stage 3 (moderate); N18.3 - Chronic kidney disease, stage 3 (moderate); Z79.4 - care home (current) use of insulin; Z79.4 - care home (current) use of insulin; Z79.4 - junior media buyer (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) use of insulin; Z79.4 - junior media buyer (current) use of insulin Comment: (11) Dyslipidemia Code(s): E78.5 - HYPERLIPIDEMIA, UNSPECIFIED Status: Chronic (12) GERD (gastroesophageal reflux disease) Code(s): K21.9 - GASTRO-ESOPHAGEAL REFLUX DISEASE WITHOUT ESOPHAGITIS Status: Chronic Qualifiers: Esophagitis presence: esophagitis presence not specified (13) Hypertension Code(s): I10 - ESSENTIAL (PRIMARY) HYPERTENSION Status: Chronic Qualifiers: Hypertension type: essential hypertension (14) Hypothyroidism Code(s): E03.9 - HYPOTHYROIDISM, UNSPECIFIED Status: Chronic Qualifiers: Comment: (15) Paroxysmal atrial fibrillation Code(s): I48.0 - PAROXYSMAL ATRIAL FIBRILLATION Status: Chronic Comment: on Amiodarone - Plan PT/OT, respiratory therapy, incentive spirometry, out of bed/ambulate, DVT proph w/SCDs cont diuresis per cardiology.I/os. change to IV lasix as pt reports more SO -: will consult GI given dysphagia & poor PO intake. h/o esophageal dilation -: DC lantus as blood sugars running low. monitor -: on PO ABx. continue nebs,O2 prn -: home meds as below. reviewed again.am labs * . Review of Systems - Review of Systems Constitutional: weakness, malaise ENT: negative: Ear Pain, Ear Discharge, Nose Pain, Nose Discharge, Nose Congestion, Mouth Pain, Mouth Swelling, Throat Pain, Throat Swelling, Other Respiratory: Cough, Shortness of Breath. negative: Dry, Hemoptysis, SOB with Excertion, Pleuritic Pain, Sputum, Wheezing Cardiovascular: negative: chest pain, palpitations, orthopnea, paroxysmal nocturnal dyspnea, edema, light headedness, other Gastrointestinal: Nausea, Other. negative: Vomiting, Abdominal Pain, Diarrhea, Constipation, Melena, Hematochezia Genitourinary: negative: Dysuria, Frequency, Incontinence, Hematuria, Retention , Other Musculoskeletal: negative: Neck Pain, Shoulder Pain, Arm Pain, Back Pain, Hand Pain, Leg Pain, Foot Pain, Other Skin: negative: Rash, Lesions, Carroll, Bruising, Other Neurological: negative: Weakness, Numbness, Incoordination, Change in Speech, Confusion, Seizures, Other - Medications/Allergies Allergies/Adverse Reactions: Allergies Allergy/AdvReac Type Severity Reaction Status Date / Time hydrocodone [From [place]] Allergy Verified 04/17/18 22:23 Medications: Current Medications Acetaminophen (Tylenol) 650 mg PO Q4H PRN PRN Reason: Headache/Fever or Pain Last Admin: 04/22/18 10:25 Dose: 650 mg Amiodarone HCl (Cordarone) 100 mg PO DAILY [facility] Last Admin: 04/22/18 09:06 Dose: 100 mg Amoxicillin/Clavulanate Potassium (Augmentin) 875 mg PO Q12HR [facility] Last Admin: 04/22/18 09:05 Dose: 875 mg Aspirin (Aspirin) 325 mg PO DAILY [facility] Last Admin: 04/22/18 09:05 Dose: 325 mg Atorvastatin Calcium (Lipitor) 10 mg PO HS [facility] Last Admin: 04/21/18 21:39 Dose: 10 mg Al Hydroxide/Mg Hydroxide 60 ml/ Diphenhydramine HCl 150 mg / Lidocaine HCl 60 ml/Nystatin 6,000,000 units 0 ml SSW PRN PRN PRN Reason: Mouth Irritation Last Admin: 04/19/18 23:57 Dose: 10 ml Dextrose/Water (Dextrose 50%) 25 gm SLOW IVP PRN PRN PRN Reason: Hypoglycemia Last Admin: 04/21/18 22:19 Dose: 25 gm Docusate Sodium (Colace) 100 mg PO BID [facility] Last Admin: 04/22/18 09:07 Dose: 100 mg Furosemide (Lasix) 40 mg SLOW IVP 0600,1400 [facility] Last Admin: 04/22/18 13:16 Dose: 40 mg Glucagon (Glucagon) 1 mg IM PRN PRN PRN Reason: Hypoglycemia Hydralazine HCl (Apresoline) 10 mg SLOW IVP Q4H PRN PRN Reason: FOR SBP > 180 /DBP >100 Dextrose/Water (D5w) 1,000 mls @ 0 mls/hr IV .Q0M PRN PRN Reason: Hypoglycemia Insulin Glargine 60 units/ (Syringe) 0.6 mls @ 0 mls/hr SC DAILY [facility] Last Admin: 04/22/18 09:08 Dose: Not Given Insulin Human Isoph/Insulin Regular (Humulin 70/30) 45 units SC QAM [facility] Last Admin: 04/22/18 09:09 Dose: Not Given Insulin Human Lispro (Humalog) 0 units SC .BEDTIME SLIDING SC PRN PRN Reason: Bedtime Correctional Scale Last Admin: 04/18/18 23:00 Dose: 4 units Insulin Human Lispro (Humalog) 0 units SC .AGGRESSIVE SLIDING PRN PRN Reason: Aggressive Correctional Scale Last Admin: 04/21/18 17:16 Dose: 9 unit Isosorbide Dinitrate (Isordil) 10 mg PO DAILY [facility] Last Admin: 04/22/18 09:08 Dose: 10 mg Levothyroxine Sodium (Synthroid) 150 mcg PO 0600 [facility] Last Admin: 04/22/18 07:13 Dose: 150 mcg Lidocaine (Lidoderm 5% Patch) 1 patch TD DAILY [facility] Last Admin: 04/22/18 09:04 Dose: Not Given Lorazepam (Ativan) 0.5 mg PO HS [facility] Last Admin: 04/21/18 21:39 Dose: 0.5 mg Metolazone (Zaroxolyn) 5 mg PO 0830 [facility] Last Admin: 04/22/18 09:05 Dose: 5 mg Miscellaneous Medication (Lidocaine Patch Removal) 1 each TOP 2100 [facility] Last Admin: 04/21/18 21:46 Dose: Not Given Morphine Sulfate (Morphine) 4 mg SLOW IVP Q2H PRN PRN Reason: Mild-Moderate Pain (1-5) Last Admin: 04/22/18 07:10 Dose: 4 mg Nitroglycerin (Nitrostat) 0.4 mg PO Q5MIN PRN PRN Reason: Chest Pain Last Admin: 04/21/18 15:54 Dose: 0.4 mg Ondansetron HCl (Zofran Odt) 4 mg PO Q6H PRN PRN Reason: Nausea/Vomiting Last Admin: 04/22/18 08:13 Dose: 4 mg Pantoprazole Sodium (Protonix) 40 mg PO DAILY [facility] Last Admin: 04/22/18 09:08 Dose: 40 mg Polyethylene Glycol (Miralax) 17 gm PO DAILY [facility] Last Admin: 04/22/18 09:05 Dose: 17 gm Potassium Chloride (K-Dur) 20 meq PO TID [facility] Last Admin: 04/22/18 09:07 Dose: 20 meq Prednisone (Prednisone) 10 mg PO DAILY [facility] Last Admin: 04/22/18 09:07 Dose: 10 mg Sodium Chloride (Flush - Normal Saline) 10 ml IVF Q12HR [facility] Last Admin: 04/22/18 08:14 Dose: 10 ml Sodium Chloride (Flush - Normal Saline) 10 ml IVF PRN PRN PRN Reason: Saline Flush Last Admin: 04/20/18 06:04 Dose: 10 ml Tramadol HCl (Ultram) 50 mg PO Q4H PRN PRN Reason: Mild-Moderate Pain (1-5) Last Admin: 04/22/18 13:16 Dose: 50 mg Tramadol HCl (Ultram) 100 mg PO Q4H PRN PRN Reason: Moderate to Severe Pain (6-10) Last Admin: 04/18/18 12:46 Dose: 100 mg
--- NOTE | 2018-04-22 15:09 | PDOC.GSPN ---
Surgery Progress Note: Subj - Subjective Patient reports: no new complaints Surgery Progress Note: Obj - Vital signs Vital signs: Vital Signs - Most Recent Temp Pulse Resp BP Pulse Ox 97.8 F 68 16 133/62 93 L 04/22/18 11:15 04/22/18 11:15 04/22/18 11:15 04/22/18 11:15 04/22/18 11:15 - Physical Exam General: no distress Wound: dressing clean,dry,intact Surgery Progress Note: Results - Labs Result Diagrams: 04/20/18 04:33 04/22/18 04:39 Lab results: Laboratory Results - last 24 hr 04/22/18 04/22/18 04/22/18 04:39 06:18 11:05 Sodium 143 Potassium 3.6 Chloride 100 Carbon Dioxide 36 H Anion Gap 11 BUN 38 H Creatinine 1.32 H Estimated GFR (MDRD) 39 Glucose 76 L POC Glucose 109 119 H Calcium 9.5 Surgery Progress Note: A/P - Problem (1) Cellulitis of lower extremity Current Visit: No Code(s): L03.119 - CELLULITIS OF UNSPECIFIED PART OF LIMB Status: Acute Qualifiers: Laterality: right Qualified Code(s): L03.115 - Cellulitis of right lower limb - Plan Plan: s/p I&D -continue dressing changes -see me in the office 2 weeks after DC
[2018-04-22] MEDS: traMADol HCl 50 MG TAB PO PRN ×2 (17:44→23:10)
--- NOTE | 2018-04-22 18:18 | CON ---
DATE OF CONSULTATION: 04/22/2018 REASON FOR CONSULTATION: Dysphagia, nausea and vomiting, constipation. CONSULTING PHYSICIAN: Diana Baires MD HISTORY OF PRESENT ILLNESS: The patient is an 82-year-old female with past medical history of diabet es, coronary artery disease, peripheral vascular disease, morbid obesity, hypothyroidism, hypertensio n, chronic kidney disease stage IV, atrial fibrillation, and moderate aortic stenosis who was initial ly admitted to the hospital for evaluation related to a left thigh abscess. However, during this hos pitalization, she has had progressively worsening abdominal pain, dysphagia, nausea, and vomiting. H er right upper quadrant abdominal pain is characterized as a cramping-type sensation, constant with w axing/waning severity. It will radiate to the periumbilical region and reaches severity of 8/10. He r pain is worse with increased physical activity, eating, and not having a bowel movement; better wit h having a bowel movement. In relation to her prior abdominal pain present both in the outpatient cl inic and during previous hospitalization, this abdominal pain is unchanged in location, severity, or character. However, she also complaints of dysphagia characterized as a sensation that food is getti ng stuck around the mid chest. This will occur with both solids and liquids and sometimes result in vomiting of ingested material. She was also evaluated for this particular condition in November of this year, for which she underwent an upper endoscopy, which showed a normal-appearing esophagus; however , she was empirically dilated to 18 mm in size. She also complains of increased gastroesophageal ref lux symptoms characterized as substernal pyrosis and regurgitation during this particular hospitaliza tion, which had been fairly controlled as an outpatient with PPI administered daily 30-45 minutes bef ore eating breakfast. However, the dosing schedule of her PPI has been changed during this inpatient hospitalization and has resulted in increased acid reflux symptoms itself and associated increased n ausea and vomiting. Currently, she denies any fevers, chills, odynophagia, diarrhea, or weight loss. Of note, initially during her hospitalization, she did complain and still continues to complain of le ft chest pain for which she had a mild increase in troponins on admission and is currently being divya samuel for a [id number] NC. REVIEW OF SYSTEMS: A 10-category review of systems was obtained with all responses negative, except for the pertinent positives as listed in HPI. PAST MEDICAL HISTORY: As per HPI. 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 SOCIAL HISTORY: Denies any tobacco, alcohol, or illicit drug use. FAMILY HISTORY: Denies any GI malignancies. OUTPATIENT MEDICATIONS: Reviewed. ALLERGIES: HYDROCODONE. PHYSICAL EXAMINATION: VITAL SIGNS: Temperature 97.8, pulse 68, blood pressure 133/62, respiratory rate 16, satting 93% on room air. GENERAL: The patient is sitting at bedside in no acute distress. Alert and oriented x4. NECK: Supple. No JVD noted. However, she does have significant kyphosis of the cervical spine. CARDIOVASCULAR: Regular rate and rhythm; however, she does have a 4/6 high-pitched systolic murmur, best heard at the right upper sternal border. No gallops or rubs auscultated. RESPIRATORY: Clear to auscultation bilaterally with no discernible wheezes or rales. ABDOMEN: Normoactive bowel sounds. Soft, morbidly obese abdomen. Tenderness to palpation in the ri ght upper quadrant and right flank. EXTREMITIES: 1+ bilateral lower extremity edema extending to mid maguire, as well as thickening of the skin indicative of chronic edema and venous stasis changes. Dressing in place along the left patella with Tegaderm clean, dry, and intact. LABORATORY DATA: Most recent CBC obtained on 04/20/2018 with a white blood cell count of 7.5, hemogl obin 10.9, hematocrit 34.6, platelets 304. Chemistry was obtained today with a sodium of 143, potass ium 3.6, chloride 100, carbon dioxide 36, BUN 38, creatinine 1.32, glucose 76. IMAGING DATA: Chest x-ray obtained on 04/22/2018 showed stable cardiomegaly with no evidence of cons olidation, mass, or pleural effusion. Upper endoscopy was performed on 12/09/2017, which showed a no rmal esophagus that was empirically dilated to approximately 18 mm (of note, when the patient was fol lowed up as an outpatient, there was no significant change in her dysphagia symptoms). 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 Abdominal pain. The patient is complaining of increased right upper quadrant/midepigastric abdominal pain characterized as a cramping-type sensation that is constant and radiates to the periumbilical r egion. She does have a significant history of constipation for which she has not had a true bowel mo vement during this hospitalization (per patient), and had been on a regimen consisting of both lubipr ostone and MiraLax as an outpatient to facilitate defecation. While on this outpatient regimen, she had had complete resolution of her abdominal pain and I would recommend placing her back on this garry men to treat this abdominal pain, especially since this abdominal pain is worse with eating and not h aving a bowel movement. However, differential could possibly include gallbladder disease, biliary pa thology (much less likely given normal LFTs), gastroparesis, peptic ulcer disease (much less likely), or upper GI neoplasm (much less likely given negative EGD in 11/2017). Recommendations: 1. I would continue administration of MiraLax daily, but had in lubiprostone 24 mcg per day as part of her bowel regimen. 2. I would place the patient on a lower fiber diet given the possibility of gastroparesis further co mpounding to her abdominal pain and/or nausea and vomiting. 3. I would attempt to minimize any narcotic administration given the increased risk of constipation and further contributing to her abdominal pain. Dysphagia. The patient is presenting with a chronic history of dysphagia characterized as the sensat ion of food getting stuck around the mid chest and that would occur with both solid and liquid food. However, she did undergo an upper endoscopy on 12/09/2017, which showed a relatively normal esophagu s with no evidence of stricture, stenosis, mass lesions, or ulcerations. She was subsequently empiri hesham dilated to 18 mm in size, but upon following the patient up in the outpatient clinic, she did n ot have any significant change in her symptoms. She was ultimately placed on PPI 40 mg 30-45 minutes before breakfast with significant reduction in her dysphagia symptoms raising a high likelihood of n onerosive reflux disease. However, even while on PPI therapy, she did not experience complete resolu tion of her dysphagia, which was mildly concerning for other underlying process. Esophageal manometr y was offered as an outpatient, but the patient had been refusing any further diagnostic evaluation a t that time, and while she does still continue to refuse esophageal manometry, I would recommend repl acing her back on appropriate dosing schedule for her PPI to help with nonerosive reflux disease. Al so, with the possibility of gastroparesis given her significant kyphosis and relatively bedbound stat us while in the hospital, this could potentially worsen her nausea and vomiting. I would recommend s tandard gastroesophageal reflux precautions while inpatient. Recommendations: 1. We would continue pantoprazole 40 mg in the morning 30-45 minutes before breakfast. 2. We would maintain standard antireflux precautions including maintaining an upright posture approx imately 2-3 hours after ingestion of food, having the patient sit in a chair to eat. 3. I would also place the patient on a lower fiber/low-residue diet given the possibility of gastrop aresis further exacerbating her acid reflux symptoms as well as nausea, vomiting, and dysphagia. 4. No plans for esophageal manometry at this time nor is there any plans to repeat the upper endosco py given the normal findings in 11/2017 for exactly the same symptoms. We will continue to follow. Dr. Hammad Frazier will be following over the weekend. Please call with any additional questions.
[2018-04-22] MEDS ORDERED: diphenhydrAMINE 2% CREAM 28.4 GM TUBE TOP PRN (22:19)
[2018-04-22] MEDS: Atorvastatin Calcium 10 MG TAB PO SCH (22:20)
[2018-04-22] MEDS: Lorazepam 0.5 MG TAB PO SCH (22:20)
[2018-04-22] MEDS: Lidocaine Patch Removal 1 EACH TOP SCH (22:20)
[2018-04-23] MEDS ORDERED: diphenhydrAMINE 25 MG CAP PO PRN (00:27)
[2018-04-23] MEDS: Levothyroxine 150 MCG TAB PO SCH (06:18)
[2018-04-23] MEDS: Furosemide 40 MG/4 ML VIAL SLOW IVP SCH ×2 (06:19→15:23)
[2018-04-23] MEDS: Potassium Chloride 20 MEQ TAB PO SCH ×3 (09:11→20:35)
[2018-04-23] MEDS: Aspirin 325 MG TAB PO SCH (09:12)
[2018-04-23] MEDS: Metolazone 5 MG TAB PO SCH (09:12)
[2018-04-23] MEDS: Lubiprostone 24 MCG CAP PO SCH (09:13)
[2018-04-23] MEDS: Amoxicillin/Potassium Clav 875 MG TAB PO SCH ×2 (09:13→20:34)
[2018-04-23] MEDS: predniSONE 5 MG TAB PO SCH (09:14)
[2018-04-23] MEDS: Docusate 100 MG CAP PO SCH ×2 (09:15→20:35)
[2018-04-23] MEDS: Amiodarone 200 MG TAB PO SCH (09:15)
[2018-04-23] MEDS: Insulin NPH/Reg Insulin Hm 300 UNITS/3 ML VIAL SC SCH (09:16)
[2018-04-23] MEDS: Polyethylene Glycol 3350 17 GM Packet PO SCH (09:16)
[2018-04-23] MEDS: Isosorbide Dinitrate 20 MG TAB PO SCH (09:16)
[2018-04-23 09:23] LABS: Anion Gap 15 mmol/L (10-20); BUN (Urea Nitrogen) 38 mg/dL (9.8-20.1); Calc. Creatinine Clearance 35 mL/min (70-130); Calcium 9.7 mg/dL (7.8-10.44); Carbon Dioxide 33 mmol/L (23-31); Chloride 98 mmol/L (98-107); Estimated GFR-MDRD 32; Glucose 141 mg/dL (83-110); Potassium 3.7 mmol/L (3.5-5.1); Sodium 142 mmol/L (136-145)
[2018-04-23] MEDS: Lidocaine 5% Patch TD SCH (09:26)
[2018-04-23] MEDS: traMADol HCl 50 MG TAB PO PRN ×2 (11:05→15:21)
[2018-04-23] MEDS: Acetaminophen 325 MG TAB PO PRN ×2 (11:06→15:20)
--- NOTE | 2018-04-23 14:10 | PRG ---
DATE OF SERVICE: 04/23/2018 SUBJECTIVE: The patient has a multitude of complaints. Her first is that the nurses rate being resp onsive to her calls. She denies any nausea, vomiting. She does report some abdominal pain which see ms to be better after having a bowel movement yesterday. She reports she is self disimpacted herself in order to have a bowel movement. She reports she is trying to eat something soft. OBJECTIVE: VITAL SIGNS: Shows a temperature 98, pulse 61, respiratory rate 16, blood pressure 179/73. CHEST: Clear. CARDIOVASCULAR: Regular rate and rhythm. ABDOMEN: Soft, nontender, without organomegaly or masses. EXTREMITIES: Normal. LABORATORY DATA: Shows a glucose of 181. ASSESSMENT: 1. Constipation - recently started back on her MiraLax. 2. Gastroesophageal reflux - doing better on Protonix. 3. Abdominal pain - improved after a bowel movement. 4. Dysphagia - probably some contribution from her edentulous state. RECOMMENDATIONS: 1. Soft diet. 2. Continue Protonix. 3. Continue MiraLax.
[2018-04-23] MEDS: Nitroglycerin 0.4 MG TAB (25 Tab Bottle) PO PRN (16:42)
--- NOTE | 2018-04-23 17:00 | PDOC.PN ---
- Subjective Encounter Start Date: 04/23/18 (f/u pain) Encounter Start Time: 16:59 Subjective: Pt c/o burning pain in arms, chest, face, LE needling pain in legs -: and chest pain c/w angina. Also reports pain in her gluteal/rectal -: area and requests cream - Objective Resuscitation Status: Resuscitation Status FULL:Full Resuscitation Vital Signs & Weight: Vital Signs (12 hours) Temp Pulse Resp BP Pulse Ox 04/23/18 16:19 71 18 149/59 H 96 04/23/18 08:00 98 F 61 16 04/23/18 06:42 61 16 179/73 H 95 Weight Admit Weight 170 lb 6.677 oz Weight 175 lb I&O: 04/22/18 04/23/18 04/24/18 06:59 06:59 06:59 Intake Total 728 387 8625 Output Total 1420 Balance -642 558 7780 Result Diagrams: 04/20/18 04:33 04/23/18 08:34 Additional Labs: Accuchecks 04/23/18 04/23/18 04/23/18 16:43 11:07 06:46 POC Glucose 210 H 181 H 126 H 04/22/18 21:08 POC Glucose 150 H Phys Exam - Physical Examination Constitutional: NAD Respiratory: no wheezing, no rales, no rhonchi Cardiovascular: RRR, no significant murmur Gastrointestinal: soft, non-tender, no distention, positive bowel sounds LUE bandage and packing in place, no purulent discharge Deviation from normal: erythematous lower legs -distal to knees bilateral with 1 + edema -: erythema in gluteal cleft, some peeling of skin, no ulceration Dx/Plan (1) Abscess of left lower extremity Code(s): L02.416 - CUTANEOUS ABSCESS OF LEFT LOWER LIMB Status: Acute Comment: s/p I&D 04/18/18, (2) Demand ischemia of myocardium Code(s): I24.8 - OTHER FORMS OF ACUTE ISCHEMIC HEART DISEASE Status: Acute (3) Sepsis Code(s): A41.9 - SEPSIS, UNSPECIFIED ORGANISM Status: Acute (4) ANUM (acute kidney injury) Code(s): N17.9 - ACUTE KIDNEY FAILURE, UNSPECIFIED Status: Acute (5) CKD (chronic kidney disease), stage III Code(s): N18.3 - CHRONIC KIDNEY DISEASE, STAGE 3 (MODERATE) Status: Chronic Comment: (6) Diabetes type 2, controlled Code(s): E11.9 - TYPE 2 DIABETES MELLITUS WITHOUT COMPLICATIONS Status: Chronic Qualifiers: Diabetes mellitus mcc insulin use: with mcc use Diabetes mellitus complication status: with kidney complications Diabetes mellitus complication detail: with chronic kidney disease Chronic kidney disease stage : stage 3 (moderate) Qualified Code(s): E11.22 - Type 2 diabetes mellitus with diabetic chronic kidney disease; N18.3 - Chronic kidney disease, stage 3 ( moderate); N18.3 - Chronic kidney disease, stage 3 (moderate); N18.3 - Chronic kidney disease, stage 3 (moderate); Z79.4 - vermin exterminator (current) use of insulin; Z79.4 - assisted (current) use of insulin; Z79.4 - assisted (current) use of insulin; Z79.4 - assisted (current) use of insulin Comment: (7) Dyslipidemia Code(s): E78.5 - HYPERLIPIDEMIA, UNSPECIFIED Status: Chronic (8) GERD (gastroesophageal reflux disease) Code(s): K21.9 - GASTRO-ESOPHAGEAL REFLUX DISEASE WITHOUT ESOPHAGITIS Status: Chronic Qualifiers: Esophagitis presence: esophagitis presence not specified (9) Hypertension Code(s): I10 - ESSENTIAL (PRIMARY) HYPERTENSION Status: Chronic Qualifiers: Hypertension type: essential hypertension (10) Hypothyroidism Code(s): E03.9 - HYPOTHYROIDISM, UNSPECIFIED Status: Chronic Qualifiers: Comment: (11) Stasis dermatitis of both legs Code(s): I83.11 - VARICOSE VEINS OF RIGHT LOWER EXTREMITY WITH INFLAMMATION; I83.12 - VARICOSE VEINS OF LEFT LOWER EXTREMITY WITH INFLAMMATION Status: Chronic Comment: WCT for local skin care - Plan * Scheduled tramadol and tylenol per pt's reported home routine * changed dosing of protonix to 6:00 and added sucralfate due to complaints with difficulty swallowing - appreciate GI eval * nitro prn for anginal chest pain * uncertain etiology of other pain - if chronic, see if scheduled tramadol/ tylenol will help * continue home bowel meds * continue other home meds as ordered * barrier cream and bandage to sacral/gluteal area. Continue wound care to LUE/ packed area. * * dvt prophy - start heparin * gi prophy - not indicated * code status full * * reviewed plan of care with pt/family, no questions or further needs at end of eval
--- NOTE | 2018-04-23 17:08 | PDOC.CTH ---
Cardiology Progress Note - Subjective Her biggest complaint is nausea and vomiting. She admits her breathing still being a little hard but better than yesterday. - Objective Vital Signs Temp Pulse Resp BP Pulse Ox 04/23/18 16:19 71 18 149/59 H 96 04/23/18 08:00 98 F 61 16 04/23/18 06:42 61 16 179/73 H 95 Admit Weight 170 lb 6.677 oz Weight 175 lb 04/22/18 04/23/18 04/24/18 06:59 06:59 06:59 Intake Total 959 389 3626 Output Total 1420 Balance -979 952 7235 - Physical Examination General/Neuro: alert & oriented x3, NAD Neck: no JVD present Lungs: unlabored respirations Heart: RRR Abdomen: NT/ND Extremities: other: (no edema.) - Labs Result Diagrams: 04/20/18 04:33 04/23/18 08:34 Troponin/CKMB CK-MB (CK-2) 2.2 ng/mL (0-6.6) 04/17/18 13:15 Troponin I 0.028 ng/mL (< 0.028) 04/17/18 21:27 - Assessment/Plan 1. Acute on chronic systolic/diastolic heart failure. 2. Thigh infection 3. Nausea and vomiting, GI following. 4. Aortic stenosis. PLAN: - Continue IV diuresis today and switch to PO tomorrow. - Not a candidate for AV replacement until infection settled. - Will follow.
[2018-04-23] MEDS: Sucralfate 1 GM TAB PO SCH ×2 (18:03→20:34)
[2018-04-23] MEDS: traMADol HCl 50 MG TAB PO SCH (20:34)
[2018-04-23] MEDS: Acetaminophen 325 MG TAB PO SCH (20:34)
[2018-04-23] MEDS: Atorvastatin Calcium 10 MG TAB PO SCH (20:35)
[2018-04-23] MEDS: Lidocaine Patch Removal 1 EACH TOP SCH (20:35)
[2018-04-23] MEDS: Lorazepam 0.5 MG TAB PO SCH (20:35)
[2018-04-24] MEDS: Acetaminophen 325 MG TAB PO SCH ×4 (03:19→20:35)
[2018-04-24] MEDS: traMADol HCl 50 MG TAB PO SCH ×4 (03:19→20:33)
[2018-04-24 05:10] LABS: #Lymphocytes 1.7 thou/uL (1.20-3.40); #Monocytes 0.7 thou/uL (0.11-0.59); #Neutrophils 4.7 thou/uL (1.40-6.50); %Basophils 0.4 % (0.0-1.0); %Eosinophils 0.4 % (0.0-10.0); %Lymphocytes 23.9 % (21.0-51.0); %Monocytes 9.7 % (0.0-10.0); %Neutrophils 65.6 % (42.0-75.0); Hemoglobin 11.3 g/dL (12.0-16.0); Mean Corpuscular HGB CONC 31.8 g/dL (32.0-36.0); Mean Corpuscular Hemoglobin 28.2 pg (27.0-31.0); Mean Corpuscular Volume 88.5 fL (78.0-98.0); Mean Platelet Volume 6.9 fL (7.4-10.4); Platelet Count 310 thou/uL (130-400); RBC Distribution Width 15.1 % (11.5-14.5); Red Blood Cell (RBC) Count 4.01 mill/uL (4.20-5.40); White Blood Cell (WBC) Count 7.2 thou/uL (4.8-10.8)
[2018-04-24 05:33] LABS: Anion Gap 18 mmol/L (10-20); BUN (Urea Nitrogen) 35 mg/dL (9.8-20.1); Calc. Creatinine Clearance 36 mL/min (70-130); Calcium 9.5 mg/dL (7.8-10.44); Carbon Dioxide 28 mmol/L (23-31); Chloride 99 mmol/L (98-107); Estimated GFR-MDRD 33; Glucose 99 mg/dL (83-110); Potassium 3.9 mmol/L (3.5-5.1); Sodium 141 mmol/L (136-145)
[2018-04-24] MEDS: Levothyroxine 150 MCG TAB PO SCH (06:14)
[2018-04-24] MEDS: Furosemide 40 MG/4 ML VIAL SLOW IVP SCH ×2 (06:14→14:03)
[2018-04-24] MEDS: predniSONE 5 MG TAB PO SCH (07:53)
[2018-04-24] MEDS: Potassium Chloride 20 MEQ TAB PO SCH ×3 (07:53→20:31)
[2018-04-24] MEDS: Metolazone 5 MG TAB PO SCH (07:54)
[2018-04-24] MEDS: Sucralfate 1 GM TAB PO SCH ×4 (07:54→20:33)
[2018-04-24] MEDS: Aspirin 325 MG TAB PO SCH (07:54)
[2018-04-24] MEDS: Amoxicillin/Potassium Clav 875 MG TAB PO SCH ×2 (07:54→20:33)
[2018-04-24] MEDS: Lubiprostone 24 MCG CAP PO SCH (07:54)
[2018-04-24] MEDS: Polyethylene Glycol 3350 17 GM Packet PO SCH (07:54)
[2018-04-24] MEDS: Amiodarone 200 MG TAB PO SCH (07:55)
[2018-04-24] MEDS: Isosorbide Dinitrate 20 MG TAB PO SCH ×2 (07:55→20:32)
[2018-04-24] MEDS: Insulin NPH/Reg Insulin Hm 300 UNITS/3 ML VIAL SC SCH (07:55)
[2018-04-24] MEDS: Docusate 100 MG CAP PO SCH (07:56)
[2018-04-24] MEDS: Heparin 5,000 UNITS/ML VIAL SC SCH ×2 (07:56→20:34)
[2018-04-24] MEDS: Lidocaine 5% Patch TD SCH (07:56)
[2018-04-24] MEDS: Nitroglycerin 0.4 MG TAB (25 Tab Bottle) PO PRN ×3 (09:55→21:31)
[2018-04-24] MEDS: Ondansetron ODT 4 MG TAB PO PRN ×2 (10:16→21:29)
--- NOTE | 2018-04-24 10:28 | PRG ---
DATE OF SERVICE: 04/24/2018 SUBJECTIVE: The patient is complaining of nausea, inability to eat. She is also having multiple bow el movements secondary to MiraLax. OBJECTIVE: VITAL SIGNS: Temperature is 98.6, pulse 74, respiratory rate 16, blood pressure 145/62. CHEST: Clear. CARDIOVASCULAR: Regular rate and rhythm. ABDOMEN: Benign. LABORATORY DATA: Shows a BUN 35, creatinine 1.52, glucose 118. CBC shows a white blood cell count o f 7.2, hemoglobin 11.3. ASSESSMENT: 1. Constipation - patient is now having diarrhea, secondary to MiraLax. 2. Gastroesophageal reflux. 3. Abdominal pain. 4. Nausea. RECOMMENDATIONS: 1. Decrease MiraLax by half a dose. Continue Protonix. 2. Zofran before every meal.
--- NOTE | 2018-04-24 11:49 | PDOC.PN ---
- Subjective Encounter Start Date: 04/24/18 (f/u chronic pain) Encounter Start Time: 11:48 Subjective: Pt c/o chest pain this am that resolved with 1 nitro, reports c/w prior -: episodes of chest pain. Also c/o difficulty with swallowing, n/v. Request -: reclinier - Objective Resuscitation Status: Resuscitation Status FULL:Full Resuscitation Vital Signs & Weight: Vital Signs (12 hours) Temp Pulse Resp BP Pulse Ox 04/24/18 09:05 98.6 F 74 16 145/62 H 94 L 04/24/18 08:00 98.5 F 71 20 Weight Admit Weight 170 lb 6.677 oz Weight 168 lb 8 oz I&O: 04/23/18 04/24/18 04/25/18 06:59 06:59 06:59 Intake Total 240 2500 Balance 240 2500 Result Diagrams: 04/24/18 03:54 04/24/18 03:54 Additional Labs: Accuchecks 04/24/18 04/23/18 04/23/18 04:53 20:06 16:43 POC Glucose 118 H 155 H 210 H 04/23/18 11:07 POC Glucose 181 H Phys Exam - Physical Examination Constitutional: NAD Respiratory: no wheezing, no rales, no rhonchi Cardiovascular: RRR 3/6 ARIELA holosystolic Gastrointestinal: soft, non-tender, no distention, positive bowel sounds 1+ pitting edema bilateral Deviation from normal: erythema of bilateral legs c/w stasis dermatitis -: wound care to RLE with clear bandage, and left I&D site with packing change Dx/Plan (1) Abscess of left lower extremity Code(s): L02.416 - CUTANEOUS ABSCESS OF LEFT LOWER LIMB Status: Acute Comment: s/p I&D 04/18/18, (2) Demand ischemia of myocardium Code(s): I24.8 - OTHER FORMS OF ACUTE ISCHEMIC HEART DISEASE Status: Acute (3) Sepsis Code(s): A41.9 - SEPSIS, UNSPECIFIED ORGANISM Status: Resolved (4) ANUM (acute kidney injury) Code(s): N17.9 - ACUTE KIDNEY FAILURE, UNSPECIFIED Status: Resolved (5) CKD (chronic kidney disease), stage III Code(s): N18.3 - CHRONIC KIDNEY DISEASE, STAGE 3 (MODERATE) Status: Chronic Comment: (6) Diabetes type 2, controlled Code(s): E11.9 - TYPE 2 DIABETES MELLITUS WITHOUT COMPLICATIONS Status: Chronic Qualifiers: Diabetes mellitus fdc insulin use: with fdc use Diabetes mellitus complication status: with kidney complications Diabetes mellitus complication detail: with chronic kidney disease Chronic kidney disease stage : stage 3 (moderate) Qualified Code(s): E11.22 - Type 2 diabetes mellitus with diabetic chronic kidney disease; N18.3 - Chronic kidney disease, stage 3 ( moderate); Z79.4 - jail (current) use of insulin Comment: (7) Dyslipidemia Code(s): E78.5 - HYPERLIPIDEMIA, UNSPECIFIED Status: Chronic (8) GERD (gastroesophageal reflux disease) Code(s): K21.9 - GASTRO-ESOPHAGEAL REFLUX DISEASE WITHOUT ESOPHAGITIS Status: Chronic Qualifiers: Esophagitis presence: esophagitis presence not specified Qualified Code(s) : K21.9 - Gastro-esophageal reflux disease without esophagitis (9) Hypertension Code(s): I10 - ESSENTIAL (PRIMARY) HYPERTENSION Status: Chronic Qualifiers: Hypertension type: essential hypertension Qualified Code(s): I10 - Essential (primary) hypertension (10) Hypothyroidism Code(s): E03.9 - HYPOTHYROIDISM, UNSPECIFIED Status: Chronic Qualifiers: Comment: (11) Stasis dermatitis of both legs Code(s): I83.11 - VARICOSE VEINS OF RIGHT LOWER EXTREMITY WITH INFLAMMATION; I83.12 - VARICOSE VEINS OF LEFT LOWER EXTREMITY WITH INFLAMMATION Status: Chronic Comment: WCT for local skin care - Plan * * Scheduled tramadol and tylenol per pt's reported home routine yesterday - continue this * * appreciate Cardiology consult - on IV diuresis, not a candidate for AV replacement until infection cleared * Given episodes of angina- will increase isosorbide dinitrate to bid * * appreciate GI consult - pt is on protonix * Yesterday carafate was added - no appreciable difference * Miralax dose reduced * * Renal function stable - CKD 3 * multiple areas of arthritis/chronic pain - continue tramadol/tylenol * continue home bowel meds * continue other home meds as ordered - DM well controlled * barrier cream and bandage to sacral/gluteal area. Pt is receiving wound care to RLE, and LUE post-I&D care * * dvt prophy - heparin * gi prophy - not indicated * code status full * * reviewed plan of care with pt/family, no questions or further needs at end of eval. * * Pt refusing to go to SNF or rehab. Not a candidate for home yet - on IV diuresis. May be in the next few days if home health/wound care available, and pt adequately taking PO. * * d/w Dr. Frazier - no clear etiology for pt's complaints of nausea and difficulty swallowing. Will request a speech therapy evaluation.
[2018-04-24] MEDS: HumaLOG 300 UNITS/3 ML VIAL SC PRN (16:39)
--- NOTE | 2018-04-24 17:03 | PDOC.CTH ---
Cardiology Progress Note - Subjective She is having chest pains. Still having issues with swallowing. - Objective Vital Signs Temp Pulse Resp BP Pulse Ox 04/24/18 09:05 98.6 F 74 16 145/62 H 94 L 04/24/18 08:00 98.5 F 71 20 Admit Weight 170 lb 6.677 oz Weight 168 lb 8 oz 04/23/18 04/24/18 04/25/18 06:59 06:59 06:59 Intake Total 240 2500 Balance 240 2500 - Physical Examination General/Neuro: alert & oriented x3, NAD Neck: no JVD present Lungs: CTA, unlabored respirations Heart: RRR, other: (same murmur. ) Abdomen: NT/ND Extremities: + edema B (trace) - Labs Result Diagrams: 04/24/18 03:54 04/24/18 03:54 Troponin/CKMB CK-MB (CK-2) 2.2 ng/mL (0-6.6) 04/17/18 13:15 Troponin I 0.028 ng/mL (< 0.028) 04/17/18 21:27 - Assessment/Plan 1. Acute on chronic systolic/diastolic heart failure. 2. Thigh infection 3. Nausea and vomiting, GI following. 4. Aortic stenosis. PLAN: - Switch to PO Lasix. - Not a candidate for AV replacement until infection settled. - Chest pain likely from severe . - Agree with trying increasing her anti anginals see if she has relief. Watch for orthostatic hypotension with increased nitrates.
[2018-04-24] MEDS: Lidocaine Patch Removal 1 EACH TOP SCH (20:00)
[2018-04-24] MEDS: Atorvastatin Calcium 10 MG TAB PO SCH (20:31)
[2018-04-24] MEDS: Lorazepam 0.5 MG TAB PO SCH (20:33)
[2018-04-24] MEDS ORDERED: Gabapentin 300 MG CAP PO SCH (21:15)
[2018-04-25] MEDS: traMADol HCl 50 MG TAB PO SCH ×4 (02:49→20:49)
[2018-04-25] MEDS: Acetaminophen 325 MG TAB PO SCH ×4 (02:50→20:50)
[2018-04-25] MEDS: Levothyroxine 150 MCG TAB PO SCH (05:16)
[2018-04-25] MEDS: Furosemide 40 MG/4 ML VIAL SLOW IVP SCH ×2 (05:17→15:03)
[2018-04-25 05:22] LABS: Anion Gap 16 mmol/L (10-20); BUN (Urea Nitrogen) 34 mg/dL (9.8-20.1); Calc. Creatinine Clearance 32 mL/min (70-130); Calcium 9.3 mg/dL (7.8-10.44); Carbon Dioxide 28 mmol/L (23-31); Chloride 97 mmol/L (98-107); Estimated GFR-MDRD 30; Glucose 136 mg/dL (83-110); Potassium 3.7 mmol/L (3.5-5.1); Sodium 137 mmol/L (136-145)
[2018-04-25] MEDS: Ondansetron ODT 4 MG TAB PO PRN (07:09)
[2018-04-25] MEDS: Gabapentin 300 MG CAP PO SCH ×2 (08:23→20:49)
[2018-04-25] MEDS: Polyethylene Glycol 3350 17 GM Packet PO SCH (08:23)
[2018-04-25] MEDS: Heparin 5,000 UNITS/ML VIAL SC SCH ×2 (08:23→20:51)
[2018-04-25] MEDS: Amiodarone 200 MG TAB PO SCH (08:24)
[2018-04-25] MEDS: Aspirin 325 MG TAB PO SCH (08:24)
[2018-04-25] MEDS: Sucralfate 1 GM TAB PO SCH ×4 (08:24→20:49)
[2018-04-25] MEDS: Potassium Chloride 20 MEQ TAB PO SCH ×3 (08:24→20:49)
[2018-04-25] MEDS: Metolazone 5 MG TAB PO SCH (08:24)
[2018-04-25] MEDS: Amoxicillin/Potassium Clav 875 MG TAB PO SCH ×2 (08:24→20:50)
[2018-04-25] MEDS: predniSONE 5 MG TAB PO SCH (08:24)
[2018-04-25] MEDS: Lidocaine 5% Patch TD SCH (08:33)
[2018-04-25] MEDS: Isosorbide Dinitrate 20 MG TAB PO SCH ×2 (10:11→20:50)
[2018-04-25] MEDS: Insulin NPH/Reg Insulin Hm 300 UNITS/3 ML VIAL SC SCH (10:13)
--- NOTE | 2018-04-25 10:48 | EKG ---
Test Reason : STAT Blood Pressure : / mmHG Vent. Rate : 072 BPM Atrial Rate : 072 BPM P-R Int : 190 ms QRS Dur : 072 ms QT Int : 418 ms P-R-T Axes : 030 072 -01 degrees QTc Int : 457 ms Normal sinus rhythm Nonspecific ST abnormality Abnormal QRS-T angle, consider primary T wave abnormality Abnormal ECG When compared with ECG of 21-APR-2018 15:23, Criteria for Inferior infarct are no longer Present ST now depressed in Inferior leads Confirmed by DR. Imelda FABIAN ([id number]), business editor CHARO PAZ ([id number]) on 04/25/2018 10:47:43 AM Referred By: MAXIMO Confirmed By:DR. Imelda FABIAN
--- NOTE | 2018-04-25 11:09 | PDOC.PN ---
- Subjective Encounter Start Date: 04/25/18 Encounter Start Time: 11:06 Subjective: much improved - Objective Resuscitation Status: Resuscitation Status FULL:Full Resuscitation MAR Reviewed: Yes Vital Signs & Weight: Vital Signs (12 hours) Temp Pulse Resp BP 04/25/18 08:00 98.2 F 65 20 04/25/18 07:30 98.2 F 65 20 122/69 Weight Admit Weight 170 lb 6.677 oz Weight 168 lb 8 oz I&O: 04/24/18 04/25/18 04/26/18 06:59 06:59 06:59 Intake Total 2500 600 Balance 2500 600 Result Diagrams: 04/24/18 03:54 04/25/18 04:07 Additional Labs: Accuchecks 04/25/18 04/24/18 04/24/18 04:26 20:18 16:32 POC Glucose 146 H 84 203 H 04/24/18 11:52 POC Glucose 187 H Phys Exam - Physical Examination Neck: no JVD Respiratory: clear to auscultation bilateral Cardiovascular: RRR 3/6 harsh sys murmur Gastrointestinal: soft, positive bowel sounds Musculoskeletal: edema present Dx/Plan (1) DM type 2 (diabetes mellitus, type 2) Status: Acute Qualifiers: Diabetes mellitus intermediate card tender insulin use: with intermediate card tender use Diabetes mellitus complication status: with kidney complications Diabetes mellitus complication detail: with chronic kidney disease Chronic kidney disease stage : stage 3 (moderate) Qualified Code(s): E11.22 - Type 2 diabetes mellitus with diabetic chronic kidney disease; N18.3 - Chronic kidney disease, stage 3 ( moderate); Z79.4 - watermaster (current) use of insulin (2) Abscess of left lower extremity Code(s): L02.416 - CUTANEOUS ABSCESS OF LEFT LOWER LIMB Status: Acute Comment: s/p I&D 04/18/18, (3) Demand ischemia of myocardium Code(s): I24.8 - OTHER FORMS OF ACUTE ISCHEMIC HEART DISEASE Status: Chronic (4) UTI (urinary tract infection) Status: Acute Comment: E. coli/Proteus ssp on Ucx, continue Zosyn and await final cx results (5) Cellulitis of lower extremity Code(s): L03.119 - CELLULITIS OF UNSPECIFIED PART OF LIMB Status: Acute Qualifiers: Laterality: right Qualified Code(s): L03.115 - Cellulitis of right lower limb Comment: with stasis dermatitis and wound (6) Hypertension Code(s): I10 - ESSENTIAL (PRIMARY) HYPERTENSION Status: Chronic Qualifiers: Hypertension type: essential hypertension Qualified Code(s): I10 - Essential (primary) hypertension (7) Hypothyroidism Code(s): E03.9 - HYPOTHYROIDISM, UNSPECIFIED Status: Chronic Qualifiers: Comment: (8) Paroxysmal atrial fibrillation Code(s): I48.0 - PAROXYSMAL ATRIAL FIBRILLATION Status: Chronic Comment: on Amiodarone (9) Severe aortic stenosis by prior echocardiogram Code(s): I35.0 - NONRHEUMATIC AORTIC (VALVE) STENOSIS Status: Chronic (10) Acute on chronic systolic and diastolic heart failure, NYHA class 3 Code(s): I50.43 - ACUTE ON CHRONIC COMBINED SYSTOLIC AND DIASTOLIC HRT FAIL Status: Acute - Plan on iv diuresis -: cont accu/ss/ LA insulin * .
[2018-04-25] MEDS: HumaLOG 300 UNITS/3 ML VIAL SC PRN ×2 (11:47→20:51)
--- NOTE | 2018-04-25 11:47 | PRG ---
DATE OF SERVICE: 04/25/2018 SUBJECTIVE: The patient is actually feeling better today. She reports she is tolerating a diet fair ly well. She has had 1 bowel movement that seemed to be more formed. PHYSICAL EXAMINATION: VITAL SIGNS: Temperature is 98.2, pulse 65, respiratory rate 20, blood pressure 122/69. CHEST: Clear. CARDIOVASCULAR: Regular rate and rhythm. ABDOMEN: Soft, nontender, without organomegaly or masses. EXTREMITIES: Shows stasis changes in lower extremities. LABORATORY DATA: Shows a BUN 34, creatinine 1.66, glucose 136. ASSESSMENT: 1. Constipation - patient is presently doing well as far as bowel movements. 2. Gastroesophageal reflux disease. 3. Abdominal pain. 4. Chronic nausea. RECOMMENDATIONS: 1. Continue half dose MiraLax. 2. Continue Protonix. 3. Continue Zofran. 4. We will sign off.
[2018-04-25] MEDS: Lidocaine Patch Removal 1 EACH TOP SCH (18:59)
[2018-04-25] MEDS: Atorvastatin Calcium 10 MG TAB PO SCH (20:49)
[2018-04-25] MEDS: Lorazepam 0.5 MG TAB PO SCH (20:50)
[2018-04-26] MEDS: traMADol HCl 50 MG TAB PO SCH ×4 (03:09→21:07)
[2018-04-26] MEDS: Acetaminophen 325 MG TAB PO SCH ×4 (03:09→21:06)
[2018-04-26] MEDS: Levothyroxine 150 MCG TAB PO SCH (05:31)
[2018-04-26] MEDS: Furosemide 40 MG/4 ML VIAL SLOW IVP SCH ×2 (05:31→15:51)
--- NOTE | 2018-04-26 08:48 | PRG ---
DATE OF SERVICE: 04/26/2018 SUBJECTIVE: Ms. Ivory is sitting up in the chair. She said she is breathing better. She is not britt ving chest pain or shortness of breath. PHYSICAL EXAMINATION: VITAL SIGNS: Blood pressure 145/77, pulse 70, it is regular. LUNGS: Clear posteriorly, there is a little bit of wheezing anteriorly. CARDIAC: Normal S1, normal S2 with a high-pitch aortic stenosis murmur as before. ABDOMEN: Soft, nontender. EXTREMITIES: With still moderate edema. ASSESSMENT: 1. Leg abscess, improved. 2. Congestive heart failure, diastolic. 3. Aortic stenosis. PLAN: 1. Continue with intravenous furosemide and metolazone. 2. We will check a base met tomorrow.
[2018-04-26] MEDS: Isosorbide Dinitrate 20 MG TAB PO SCH ×2 (09:41→21:06)
[2018-04-26] MEDS: Amoxicillin/Potassium Clav 875 MG TAB PO SCH ×2 (09:42→21:06)
[2018-04-26] MEDS: Potassium Chloride 20 MEQ TAB PO SCH ×3 (09:42→21:06)
[2018-04-26] MEDS: predniSONE 5 MG TAB PO SCH (09:42)
[2018-04-26] MEDS: Gabapentin 300 MG CAP PO SCH ×2 (09:43→21:07)
[2018-04-26] MEDS: Amiodarone 200 MG TAB PO SCH (09:44)
[2018-04-26] MEDS: Sucralfate 1 GM TAB PO SCH ×4 (09:45→21:06)
[2018-04-26] MEDS: Metolazone 5 MG TAB PO SCH (09:45)
[2018-04-26] MEDS: Aspirin 325 MG TAB PO SCH (09:45)
[2018-04-26] MEDS: Heparin 5,000 UNITS/ML VIAL SC SCH ×2 (09:46→21:08)
[2018-04-26] MEDS: Polyethylene Glycol 3350 17 GM Packet PO SCH (09:46)
[2018-04-26] MEDS: Lidocaine 5% Patch TD SCH ×2 (09:55→12:38)
[2018-04-26] MEDS: Insulin NPH/Reg Insulin Hm 300 UNITS/3 ML VIAL SC SCH (09:56)
--- NOTE | 2018-04-26 10:26 | PDOC.GSPN ---
Surgery Progress Note: Subj - Subjective Narrative: No complaints. Wound care was concerned about her left 1st toe Surgery Progress Note: Obj - Vital signs Vital signs: Vital Signs - Most Recent Temp Pulse Resp BP Pulse Ox 98.2 F 71 20 145/77 H 98 04/26/18 07:41 04/26/18 07:41 04/26/18 07:41 04/26/18 07:41 04/26/18 07:41 - Physical Exam General: no distress Wound: packing in place Surgery Progress Note: Results - Labs Result Diagrams: 04/24/18 03:54 04/25/18 04:07 Lab results: Laboratory Results - last 24 hr 04/26/18 04:50 POC Glucose 151 H Surgery Progress Note: A/P - Problem (1) Cellulitis of lower extremity Current Visit: No Code(s): L03.119 - CELLULITIS OF UNSPECIFIED PART OF LIMB Status: Acute Qualifiers: Laterality: right Qualified Code(s): L03.115 - Cellulitis of right lower limb - Plan Plan: thigh abscess healing well. If there is a toe concern would have her seen by Dr. Jones or Jad
--- NOTE | 2018-04-26 12:29 | PDOC.PN ---
- Subjective Encounter Start Date: 04/26/18 Encounter Start Time: 12:27 Subjective: better all the time - Objective Resuscitation Status: Resuscitation Status FULL:Full Resuscitation MAR Reviewed: Yes Vital Signs & Weight: Vital Signs (12 hours) Temp Pulse Resp BP Pulse Ox 04/26/18 08:00 98.2 F 71 20 98 04/26/18 07:41 98.2 F 71 20 145/77 H 98 Weight Admit Weight 170 lb 6.677 oz Weight 168 lb 8 oz I&O: 04/25/18 04/26/18 04/27/18 06:59 06:59 06:59 Intake Total 600 400 Balance 600 400 Result Diagrams: 04/24/18 03:54 04/25/18 04:07 Additional Labs: Accuchecks 04/26/18 04/26/18 04/25/18 11:28 04:50 20:41 POC Glucose 221 H 151 H 343 H 04/25/18 16:15 POC Glucose 101 Phys Exam - Physical Examination Neck: no JVD Respiratory: clear to auscultation bilateral Cardiovascular: RRR 3/6 sys murmur Gastrointestinal: soft, positive bowel sounds Musculoskeletal: edema present Dx/Plan (1) DM type 2 (diabetes mellitus, type 2) Status: Acute Qualifiers: Diabetes mellitus residential insulin use: with terminal system operator use Diabetes mellitus complication status: with kidney complications Diabetes mellitus complication detail: with chronic kidney disease Chronic kidney disease stage : stage 3 (moderate) Qualified Code(s): E11.22 - Type 2 diabetes mellitus with diabetic chronic kidney disease; N18.3 - Chronic kidney disease, stage 3 ( moderate); Z79.4 - terminal carman (current) use of insulin (2) Abscess of left lower extremity Code(s): L02.416 - CUTANEOUS ABSCESS OF LEFT LOWER LIMB Status: Acute Comment: s/p I&D 04/18/18, (3) Demand ischemia of myocardium Code(s): I24.8 - OTHER FORMS OF ACUTE ISCHEMIC HEART DISEASE Status: Chronic (4) UTI (urinary tract infection) Status: Acute Comment: E. coli/Proteus ssp on Ucx, continue Zosyn and await final cx results (5) Cellulitis of lower extremity Code(s): L03.119 - CELLULITIS OF UNSPECIFIED PART OF LIMB Status: Acute Qualifiers: Laterality: right Qualified Code(s): L03.115 - Cellulitis of right lower limb Comment: with stasis dermatitis and wound (6) Hypertension Code(s): I10 - ESSENTIAL (PRIMARY) HYPERTENSION Status: Chronic Qualifiers: Hypertension type: essential hypertension Qualified Code(s): I10 - Essential (primary) hypertension (7) Hypothyroidism Code(s): E03.9 - HYPOTHYROIDISM, UNSPECIFIED Status: Chronic Qualifiers: Comment: (8) Paroxysmal atrial fibrillation Code(s): I48.0 - PAROXYSMAL ATRIAL FIBRILLATION Status: Chronic Comment: on Amiodarone (9) Severe aortic stenosis by prior echocardiogram Code(s): I35.0 - NONRHEUMATIC AORTIC (VALVE) STENOSIS Status: Chronic (10) Acute on chronic systolic and diastolic heart failure, NYHA class 3 Code(s): I50.43 - ACUTE ON CHRONIC COMBINED SYSTOLIC AND DIASTOLIC HRT FAIL Status: Acute - Plan still on iv diuresis, monitoring BMP -: cont asa, statin, amiodarone -: cont accu/ss/ LA insulin * .
[2018-04-26] MEDS: HumaLOG 300 UNITS/3 ML VIAL SC PRN ×2 (12:41→21:08)
[2018-04-26] MEDS: Atorvastatin Calcium 10 MG TAB PO SCH (21:07)
[2018-04-26] MEDS: Lorazepam 0.5 MG TAB PO SCH (21:07)
[2018-04-26] MEDS: Lidocaine Patch Removal 1 EACH TOP SCH (21:08)
[2018-04-26] MEDS ORDERED: Acetaminophen 1,000 MG in Premix Bag 1 BAG IVPB SCH (23:45)
[2018-04-27] MEDS: Nitroglycerin 0.4 MG TAB (25 Tab Bottle) PO PRN (00:16)
[2018-04-27] MEDS: Acetaminophen 325 MG TAB PO SCH ×4 (03:36→20:31)
[2018-04-27] MEDS: traMADol HCl 50 MG TAB PO SCH ×4 (03:37→20:32)
[2018-04-27] MEDS: Levothyroxine 150 MCG TAB PO SCH (05:06)
[2018-04-27] MEDS: Furosemide 40 MG/4 ML VIAL SLOW IVP SCH ×2 (05:06→16:32)
[2018-04-27 05:11] LABS: Anion Gap 14 mmol/L (10-20); BUN (Urea Nitrogen) 37 mg/dL (9.8-20.1); Calc. Creatinine Clearance 32 mL/min (70-130); Calcium 9.7 mg/dL (7.8-10.44); Carbon Dioxide 30 mmol/L (23-31); Chloride 97 mmol/L (98-107); Estimated GFR-MDRD 30; Glucose 117 mg/dL (83-110); Potassium 3.5 mmol/L (3.5-5.1); Sodium 137 mmol/L (136-145)
[2018-04-27] MEDS: Gabapentin 300 MG CAP PO SCH ×2 (09:17→20:31)
[2018-04-27] MEDS: Polyethylene Glycol 3350 17 GM Packet PO SCH (09:17)
[2018-04-27] MEDS: Amiodarone 200 MG TAB PO SCH (09:17)
[2018-04-27] MEDS: Heparin 5,000 UNITS/ML VIAL SC SCH ×2 (09:17→20:32)
[2018-04-27] MEDS: predniSONE 5 MG TAB PO SCH (09:17)
[2018-04-27] MEDS: Sucralfate 1 GM TAB PO SCH ×5 (09:18→20:31)
[2018-04-27] MEDS: Metolazone 5 MG TAB PO SCH (09:18)
[2018-04-27] MEDS: Potassium Chloride 20 MEQ TAB PO SCH ×3 (09:18→20:31)
[2018-04-27] MEDS: Aspirin 325 MG TAB PO SCH (09:18)
[2018-04-27] MEDS: Amoxicillin/Potassium Clav 875 MG TAB PO SCH ×2 (09:18→20:31)
[2018-04-27] MEDS: Isosorbide Dinitrate 20 MG TAB PO SCH ×2 (09:18→20:32)
[2018-04-27] MEDS: Lidocaine 5% Patch TD SCH (09:21)
[2018-04-27] MEDS: Insulin NPH/Reg Insulin Hm 300 UNITS/3 ML VIAL SC SCH (09:25)
--- NOTE | 2018-04-27 12:04 | PDOC.PN ---
- Subjective Encounter Start Date: 04/27/18 Encounter Start Time: 12:02 Subjective: unreleved pain in L shoulder - Objective Resuscitation Status: Resuscitation Status FULL:Full Resuscitation MAR Reviewed: Yes Vital Signs & Weight: Vital Signs (12 hours) Temp Pulse Resp BP BP Pulse Ox 04/27/18 11:23 97.5 F L 74 16 106/57 L 97 04/27/18 07:18 97.6 F 66 16 131/67 99 Weight Admit Weight 170 lb 6.677 oz Weight 168 lb 8 oz I&O: 04/26/18 04/27/18 04/28/18 06:59 06:59 06:59 Intake Total 400 682 Balance 400 682 Result Diagrams: 04/24/18 03:54 04/27/18 03:38 Additional Labs: Accuchecks 04/27/18 04/26/18 04/26/18 05:01 19:55 16:56 POC Glucose 115 H 203 H 122 H Phys Exam - Physical Examination Neck: no JVD Respiratory: clear to auscultation bilateral Cardiovascular: RRR 3/6 sys murmur Gastrointestinal: soft, positive bowel sounds Musculoskeletal: edema present Dx/Plan (1) DM type 2 (diabetes mellitus, type 2) Status: Acute Qualifiers: Diabetes mellitus exterminator termite insulin use: with exterminator termite use Diabetes mellitus complication status: with kidney complications Diabetes mellitus complication detail: with chronic kidney disease Chronic kidney disease stage : stage 3 (moderate) Qualified Code(s): E11.22 - Type 2 diabetes mellitus with diabetic chronic kidney disease; N18.3 - Chronic kidney disease, stage 3 ( moderate); Z79.4 - terminal operations manager (current) use of insulin (2) Abscess of left lower extremity Code(s): L02.416 - CUTANEOUS ABSCESS OF LEFT LOWER LIMB Status: Acute Comment: s/p I&D 04/18/18, (3) Demand ischemia of myocardium Code(s): I24.8 - OTHER FORMS OF ACUTE ISCHEMIC HEART DISEASE Status: Chronic (4) UTI (urinary tract infection) Status: Acute Comment: E. coli/Proteus ssp on Ucx, continue Zosyn and await final cx results (5) Cellulitis of lower extremity Code(s): L03.119 - CELLULITIS OF UNSPECIFIED PART OF LIMB Status: Acute Qualifiers: Laterality: right Qualified Code(s): L03.115 - Cellulitis of right lower limb Comment: with stasis dermatitis and wound (6) Hypertension Code(s): I10 - ESSENTIAL (PRIMARY) HYPERTENSION Status: Chronic Qualifiers: Hypertension type: essential hypertension Qualified Code(s): I10 - Essential (primary) hypertension (7) Hypothyroidism Code(s): E03.9 - HYPOTHYROIDISM, UNSPECIFIED Status: Chronic Qualifiers: Comment: (8) Paroxysmal atrial fibrillation Code(s): I48.0 - PAROXYSMAL ATRIAL FIBRILLATION Status: Chronic Comment: on Amiodarone (9) Severe aortic stenosis by prior echocardiogram Code(s): I35.0 - NONRHEUMATIC AORTIC (VALVE) STENOSIS Status: Chronic (10) Acute on chronic systolic and diastolic heart failure, NYHA class 3 Code(s): I50.43 - ACUTE ON CHRONIC COMBINED SYSTOLIC AND DIASTOLIC HRT FAIL Status: Acute - Plan CV status stable, still on iv diuretic per cardiology -: awaiting surgery opinion on toe -: on tramadol 100 q6h, loathe to give more pain meds in elderly patient * .
--- NOTE | 2018-04-27 15:19 | PRG ---
DATE OF CONSULTATION: 04/27/2018 ROOM NUMBER: [id number] SUBJECTIVE FINDINGS: The patient was visited in her room for consult left hallux wound. The patient is resting comfortably finishing her lunch. The patient is well known to the office and has been tr eated previously for this lesion on the left hallux. OBJECTIVE FINDINGS: Examination shows patient to have significant callus on the left hallux with a c entral fissuring. The fissure measured 4cm x 1.5 cm with no depth after debridement. No signs of se condary bacterial infection. No swelling and no drainage. Again, no depth to the wound. ASSESSMENT AND PLAN: 1. After debridement of the callus tissue and the fissured area, the patient was dressed with triple antibiotic ointment and a bandage. 2. The patient will have her home health facility call me when she gets ____ care. She is to leave the bandage alone while she is in the hospital. 3. The patient will follow up with me in 10 days or two weeks or p.r.n. any problems.
[2018-04-27] MEDS: Atorvastatin Calcium 10 MG TAB PO SCH (20:31)
[2018-04-27] MEDS: Lorazepam 0.5 MG TAB PO SCH (20:31)
[2018-04-27] MEDS: Lidocaine Patch Removal 1 EACH TOP SCH (20:33)
[2018-04-27] MEDS: HumaLOG 300 UNITS/3 ML VIAL SC PRN (20:41)
[2018-04-28] MEDS: traMADol HCl 50 MG TAB PO SCH ×2 (02:40→09:18)
[2018-04-28] MEDS: Acetaminophen 325 MG TAB PO SCH ×2 (02:40→09:18)
[2018-04-28] MEDS: Levothyroxine 150 MCG TAB PO SCH (05:46)
[2018-04-28] MEDS: Furosemide 40 MG/4 ML VIAL SLOW IVP SCH (05:47)
[2018-04-28] MEDS: Sucralfate 1 GM TAB PO SCH ×2 (08:02→11:21)
[2018-04-28] MEDS: Amoxicillin/Potassium Clav 875 MG TAB PO SCH (08:02)
[2018-04-28] MEDS: Potassium Chloride 20 MEQ TAB PO SCH (08:02)
[2018-04-28] MEDS: Aspirin 325 MG TAB PO SCH (08:03)
[2018-04-28] MEDS: Metolazone 5 MG TAB PO SCH (08:03)
[2018-04-28] MEDS: Amiodarone 200 MG TAB PO SCH (08:04)
[2018-04-28 08:06] VITALS: TEMP 97.3
[2018-04-28] MEDS: Isosorbide Dinitrate 20 MG TAB PO SCH (08:06)
[2018-04-28] MEDS: Gabapentin 300 MG CAP PO SCH (08:06)
[2018-04-28] MEDS: predniSONE 5 MG TAB PO SCH (08:07)
[2018-04-28] MEDS: Polyethylene Glycol 3350 17 GM Packet PO SCH (08:08)
[2018-04-28] MEDS: Heparin 5,000 UNITS/ML VIAL SC SCH (08:10)
[2018-04-28] MEDS: Lidocaine 5% Patch TD SCH (08:10)
[2018-04-28] MEDS: Insulin NPH/Reg Insulin Hm 300 UNITS/3 ML VIAL SC SCH (08:11)
[2018-04-28 11:07] VITALS: BMI 28.9
--- NOTE | 2018-04-28 12:27 | DIS ---
DATE OF ADMISSION: 04/17/2018 DATE OF DISCHARGE: 04/28/2018 TRANSFER OF CARE PRIMARY CARE PROVIDER: Robi Dillon M.D. DISCHARGE DIAGNOSES: Cutaneous abscess of left leg, chronic venous insufficiency, hypertension, anem ia, acute chronic diastolic and systolic heart failure, diabetes mellitus type 2, urinary tract infec tion, hypokalemia, scapular fracture, chronic kidney disease stage 3, coronary artery disease, dyslip idemia, hypertension, hypothyroidism, paroxysmal atrial fibrillation, gastroesophageal reflux disease , severe aortic stenosis. DISCHARGE MEDICATIONS: Tramadol 100 mg p.o. q.6 hours p.r.n., prednisone 10 mg daily, Demadex 40 mg p.o. b.i.d., MiraLax 17 g daily, Protonix 40 mg daily, Zofran oral dissolving tablet 4 mg q.8 hours p .r.n., Amitiza 24 mcg b.i.d., lorazepam 0.5 mg at bedtime, Synthroid 137 mcg a day, isosorbide dinitr ate 10 mg twice a day, insulin lispro protamine, Humalog 75/25 KwikPen 40 units subcu daily, insulin degludec 60 units subcu daily, gabapentin 600 mg p.o. b.i.d., Lipitor 10 mg at bedtime, amiodarone 20 0 mg p.o. daily, potassium chloride 20 mEq p.o. t.i.d., Zaroxolyn 5 mg daily, aspirin 325 mg daily, A ugmentin 875 mg p.o. q.12 hours x2. ALLERGIES: HYDROCODONE. DIET: Diabetic. CODE STATUS: Full code. PENDING AT THE TIME OF DISCHARGE: Nothing. HOSPITAL COURSE: The patient was admitted to the hospital to [facility] Service through [facility] Emergency Department. CONSULTATIONS: 1. Augie Pimentel M.D., General Surgery. 2. Seth Lynch M.D., Cardiology. 3. Hector Andres M.D., Gastroenterology. 4. Karyn RibeiroP.Afshin, Podiatry. PROCEDURES: On 06/18/2018, incision and drainage obtaining cultures from left thigh abscess, Dr. Osmany peguero. On 04/27/2018, debridement of callus tissue and fissured area on left great toe. The patient was admitted to the hospital with left leg pain, left thigh abscess. General Surgery was consulted. The patient had evidence of acute heart failure. Her cultures of thigh grew E. coli pansensitive. She was treated initially with IV antibiotics, transitioned to oral antibiotics. Urine culture grew Escherichia coli and Proteus, both sensitive to Augmentin that she is currently on. On 04/18/2018, s cody was seen by Dr. Lynch. She had coronary artery disease, severe aortic stenosis, diastolic heart failure, agreed with IV antibiotics. She was treated with p.o. Zaroxolyn and IV Lasix 40 mg twice a day for abdominal pain and she was treated. Her hospital stay echocardiogram, 55%-60% EF with diasto lic failure. LABORATORY DATA: Initial white count was 23.8, hemoglobin 12.2, platelet count 286,000. With I and D and antibiotics, her white count came down to 7.2, hemoglobin 11.3, platelet count 310,000. The jaclyn dumont's initial creatinine was 1.56, BUN 68. Sodium 138, potassium 3.2. She had a lactic acid of 2. 4, which rapidly came down to normal at 1.9. She has some mildly elevated troponins. Her renal func tion stayed stable at approximately 35-40 mL per minute GFR. Blood sugars were maintained adequately . She is currently doing well. Her edema has resolved. Her chest is clear. Her initial chest x-ra y on 04/17/2018 demonstrated mild vascular congestion. At the current time, she is being discharged to be followed up by Dr. Lynch, Dr. Andres and Dr. Quinteros for her toe. She needs to be followed up in 1 week by her PCP, Dr. Dillon. Her long-term prognosis is limited by her severe aortic stenosis with an estimated valve area of 1.1 cm2. 40 minutes preparing this discharge.
[2018-04-28 12:29] VITALS: BP 134/58
== END 2018-04-28 14:50 | disposition home or self-care (01) | DRG 871 ==
LOC: ERS 14:01 → 2NO 19:54 → T4-B 04-22 15:44
PROVIDERS: ADMIT Family Medicine; ATTEND Family Medicine
PROC: 0J9M3ZX Drainage of Left Upper Leg Subcutaneous Tissue and Fascia, Percutaneous Approach, Diagnostic (ICD-10-PCS; principal; 2018-04-18)
PROC: 0HBNXZZ Excision of Left Foot Skin, External Approach (ICD-10-PCS; 2018-04-27)
DX: A41.9 Sepsis, unspecified organism (principal); I50.43 Acute on chronic combined systolic (congestive) and diastolic (congestive) heart failure; L02.416 Cutaneous abscess of left lower limb; N39.0 Urinary tract infection, site not specified; I13.0 Hypertensive heart and chronic kidney disease with heart failure and stage 1 through stage 4 chronic kidney disease, or unspecified chronic kidney disease; L03.116 Cellulitis of left lower limb; N18.4 Chronic kidney disease, stage 4 (severe); I24.8 Other forms of acute ischemic heart disease; E87.6 Hypokalemia; E78.5 Hyperlipidemia, unspecified; I25.10 Atherosclerotic heart disease of native coronary artery without angina pectoris; I48.0 Paroxysmal atrial fibrillation; K21.9 Gastro-esophageal reflux disease without esophagitis; I35.0 Nonrheumatic aortic (valve) stenosis; Z88.5 Allergy status to narcotic agent; E66.01 Morbid (severe) obesity due to excess calories; E03.9 Hypothyroidism, unspecified; I87.2 Venous insufficiency (chronic) (peripheral); Z68.28 Body mass index [BMI] 28.0-28.9, adult; Z89.422 Acquired absence of other left toe(s); Z79.899 Other long term (current) drug therapy; Z79.4 Long term (current) use of insulin; Z79.82 Long term (current) use of aspirin; R65.20 Severe sepsis without septic shock; K59.00 Constipation, unspecified; I73.9 Peripheral vascular disease, unspecified; K12.1 Other forms of stomatitis; E11.22 Type 2 diabetes mellitus with diabetic chronic kidney disease
CPT/HCPCS: 36415; 36416; 71045; 76999; 80048; 80053; 80061; 81003; 81015; 82550; 82553; 83605; 83690; 83880; 84484; 85007; 85025; 85027; 86140; 87040; 87070; 87077; 87086; 87186; 87205; 93005; 93010; 93306; 94760; 96365; 96367; 96375; 96376; A4216; G8978-GP-CJ; G8979-GP-CI; G8987-GO-CI; G8988-GO-CI; G8989-GO-CI; G8996-GN-CI; G8997-GN-CI; J0131; J0360; J1644; J1940; J2001; J2270; J2405; J2543; J2704; J3010; J3370; J7050; Q0162

== ENCOUNTER 2018-05-26 00:37 | Inpatient (IN) | payer MEDICARE, BC ==
[2018-05-26] MEDS ORDERED: Morphine 2 MG/ML SYRINGE ONE ×2 (01:23→05:28)
[2018-05-26 01:25] LABS: #Basophils 0.1 thou/uL (0.0-0.2); #Monocytes 0.9 thou/uL (0.11-0.59); #Neutrophils 9.3 thou/uL (1.40-6.50); %Basophils 0.5 % (0.0-1.0); %Eosinophils 0.3 % (0.0-10.0); %Lymphocytes 16.1 % (21.0-51.0); %Monocytes 7.7 % (0.0-10.0); %Neutrophils 75.5 % (42.0-75.0); Hemoglobin 12.1 g/dL (12.0-16.0); Mean Corpuscular HGB CONC 30.9 g/dL (32.0-36.0); Mean Corpuscular Hemoglobin 26.7 pg (27.0-31.0); Mean Corpuscular Volume 86.2 fL (78.0-98.0); Mean Platelet Volume 7.2 fL (7.4-10.4); Platelet Count 369 thou/uL (130-400); RBC Distribution Width 15.6 % (11.5-14.5); Red Blood Cell (RBC) Count 4.55 mill/uL (4.20-5.40); White Blood Cell (WBC) Count 12.3 thou/uL (4.8-10.8)
[2018-05-26 01:48] LABS: ALT (SGPT) 10 U/L (8-55); AST (SGOT) 20 U/L (5-34); Albumin 3.8 g/dL (3.4-4.8); Alkaline Phosphatase 75 U/L (40-150); Anion Gap 15 mmol/L (10-20); BUN (Urea Nitrogen) 86 mg/dL (9.8-20.1); Bilirubin, Total 0.5 mg/dL (0.2-1.2); CK (CPK) 60 U/L (29-168); Calc. Creatinine Clearance 0 mL/min (70-130); Calcium 10.7 mg/dL (7.8-10.44); Carbon Dioxide 34 mmol/L (23-31); Chloride 94 mmol/L (98-107); Estimated GFR-MDRD 27; Globulin 3.5 g/dL (2.4-3.5); Lipase 21 U/L (8-78); Potassium 3.3 mmol/L (3.5-5.1); Protein, Total 7.3 g/dL (6.0-8.3); Sodium 140 mmol/L (136-145)
[2018-05-26 01:50] LABS: CKMB 3.1 ng/mL (0-6.6)
[2018-05-26 01:51] LABS: Glucose 48 mg/dL (83-110)
[2018-05-26] MEDS ORDERED: Dextrose 50% Abboject 50 ML SYRINGE ONE (02:50)
[2018-05-26 02:53] LABS: Bilirubin Negative (Negative); Blood, Urine Negative (Negative); Clarity CLEAR (Clear); Glucose, Urine (Dipstick) Negative (Negative); Leukocyte Moderate (Negative); Nitrite Negative (Negative); Protein, Urine (Dipstick) Negative (Neg-Trace); Specific Gravity, Urine 1.013 (1.002-1.036); Urobilinogen 0.2 mg/dL (0.2-1.0); pH, Urine 6.5 (5.0-9.0)
[2018-05-26 02:54] LABS: Bacteria/HPF None Seen HPF (None Seen); Hyaline Casts/LPF 0-3 HYALINE CAST LPF (0-3 Hyaline); Pathc Cast-AUWi Flag 0.14 (0-2.49); RBC/HPF 0-3 HPF (0-3); Squamous Epithelial 0-3 HPF (0-3)
[2018-05-26 02:58] LABS: Yeast-AUWi Flag 54.7 (0-25.0)
[2018-05-26 03:10] LABS: Yeast-All Forms None Seen HPF (None Seen)
[2018-05-26] MEDS ORDERED: Sodium Chloride 77 MEQ, Potassium Chloride 20 MEQ in Dextrose 10% in Water 1,000 ML IV SCH (03:15)
[2018-05-26] MEDS ORDERED: cefTRIAXone\\ROCEPHIN 1 GM VIAL ONE (04:06)
[2018-05-26] MEDS ORDERED: Ondansetron HCl/PF 4 MG/2 ML Vial IVP PRN (06:33)
[2018-05-26] MEDS ORDERED: Ondansetron ODT 4 MG TAB SL PRN (06:33)
[2018-05-26] MEDS ORDERED: Morphine 2 MG/ML SYRINGE SLOW IVP SCH ×2 (08:30→18:45)
[2018-05-26] MEDS ORDERED: hydrOXYzine 25 MG TAB PO PRN (08:57)
[2018-05-26] MEDS ORDERED: HumaLOG 300 UNITS/3 ML VIAL SC PRN (09:00)
[2018-05-26] MEDS ORDERED: Dextrose 50% Abboject 50 ML SYRINGE SLOW IVP PRN (09:00)
[2018-05-26] MEDS ORDERED: Aspirin 325 MG TAB PO SCH (09:00)
[2018-05-26] MEDS ORDERED: Dextrose 5% in Water 1,000 ML IV PRN (09:00)
[2018-05-26] MEDS ORDERED: Acetaminophen 500 MG TAB PO PRN (10:18)
[2018-05-26 10:28] VITALS: BMI 31.0
[2018-05-26] MEDS ORDERED: Lorazepam 0.5 MG TAB PO SCH (10:30)
[2018-05-26] MEDS: Pantoprazole 40 MG GRANULES PACKET PO SCH (11:46)
[2018-05-26] MEDS: traMADol HCl 50 MG TAB PO PRN ×2 (11:46→17:40)
[2018-05-26] MEDS: Lubiprostone 24 MCG CAP PO SCH ×2 (11:46→19:52)
[2018-05-26] MEDS: Amiodarone 200 MG TAB PO SCH (11:47)
[2018-05-26] MEDS: Gabapentin 300 MG CAP PO SCH ×2 (11:47→19:50)
[2018-05-26] MEDS: Multivit, Therapeutic 1 TAB PO SCH (11:51)
[2018-05-26] MEDS: Heparin 5,000 UNITS/ML VIAL SC SCH ×3 (11:51→19:50)
[2018-05-26] MEDS: Nystatin Powder 15 GM BOT TOP SCH ×3 (11:57→20:10)
[2018-05-26] MEDS: Torsemide 20 MG TAB PO SCH ×2 (11:57→19:51)
[2018-05-26] MEDS: Potassium Chloride 20 MEQ TAB PO SCH ×2 (12:30→15:54)
[2018-05-26] MEDS: Isosorbide Dinitrate 5 MG TAB PO SCH ×2 (12:30→15:02)
[2018-05-26] MEDS: Morphine 2 MG/ML SYRINGE SLOW IVP PRN (15:00)
[2018-05-26] MEDS: Simethicone Chewable 80 MG TAB PO SCH ×2 (15:01→20:11)
[2018-05-26] MEDS: Sodium Chloride 77 MEQ, Potassium Chloride 20 MEQ in Dextrose 10% in Water 1,000 ML IV SCH (16:31)
--- NOTE | 2018-05-26 16:46 | HP ---
DATE OF ADMISSION: 05/26/2018 PRIMARY CARE PROVIDER: Robi Dillon M.D. CHIEF COMPLAINT: Hypoglycemia. HISTORY OF PRESENT ILLNESS: Ms. Ivory is a pleasant 82-year-old lady who was seen at [facility] on 05/26/2018. She reports that she was checking her blood sugars at home and it was in the 40s and 50s everytime ov er the last day or two. She reports that she has been taking oral glucose and the sugars briefly go up, but then they drop. She denies any chest pain. She denies any fevers or chills. She denies any nausea or vomiting. She was also reportedly told by her primary care provider that her potassium wa s low 4 days ago. She denies any abdominal pain. She does report the chronic pain in both lower extremities from leg w ounds. REVIEW OF SYSTEMS: All other systems reviewed and found to be negative. PAST MEDICAL HISTORY: The patient was hospitalized at this facility from 04/17/2018 to 04/28/2018 fo r cutaneous abscess of left leg. Her past medical history also includes chronic venous stasis dermat itis, diabetes mellitus type 2, chronic low back pain, gout, morbid obesity, hypothyroidism, hyperten ana, dyslipidemia, chronic kidney disease stage 3 to 4, [id number] aortic stenosis. 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 SOCIAL HISTORY: The patient denies tobacco use, alcohol use or recreational drug use. FAMILY HISTORY: The patient's daughter of breast cancer. Son at the age of 47 years from colon cancer. CODE STATUS: I discussed her code status. She is full code. ALLERGIES: HYDROCODONE. CURRENT MEDICATIONS: Tylenol Extra Strength 1-2 tablets every 6 hours as needed, Zofran 4 mg every 8 hours as needed, Lipitor 10 mg at bedtime, vitamin D3 5000 units daily, gabapentin 600 mg 2 times a day, hydroxyzine 25 mg every 6 hours as needed, Tresiba 60 units daily, Humalog 75/25 KwikPen 40 unit s at bedtime, isosorbide dinitrate 10 mg 2 times a day, Synthroid 137 mcg daily, Ativan 0.5 mg at bed time, Amitiza 24 mcg 2 times a day, multivitamins 1 tablet daily, Nystatin topically 3 times a day, P rotonix 40 mg daily, MiraLax 17 grams at bedtime, prednisone 10 mg daily, torsemide 40 mg 2 times a d ay, tramadol 50-100 mg every 6 hours as needed, amiodarone 200 mg daily, aspirin 325 mg daily, Zaroxo bernadette 5 mg daily, potassium chloride 20 mEq 3 times a day. PHYSICAL EXAMINATION: GENERAL: Ms. Ivory is awake and alert, not in acute distress. VITAL SIGNS: Blood pressure is 141/63, pulse 69, respiratory rate 20 and oxygen saturation 98% on ro om air. She is afebrile. She is obese, with a BMI of 31.1. EYES: No scleral icterus. No conjunctival pallor. ENT: Moist mucosal membranes. No oropharyngeal erythema or exudates. NECK: Supple, nontender, trachea is midline. RESPIRATORY: Accessory muscles of breathing are not active. Chest wall movements are symmetric bila terally. LUNGS: Clear to auscultation without wheeze, rhonchi or crepitations. CARDIOVASCULAR: S1 and S2 are heard, regular. Peripheral pulses palpable. No pericardial rub. Sys tolic ejection murmur at the aortic area, radiating to the carotids. ABDOMEN: Soft, nontender, bowel sounds heard, no hepatomegaly, no splenomegaly. NEUROLOGIC: Cranial nerves II-XII intact. MUSCULOSKELETAL: Power is 5/5 in all 4 extremities. SKIN: She has multiple wounds as documented by the nursing staff with photos. LYMPHATIC: No cervical lymphadenopathy. PSYCHIATRIC: Normal mood, normal affect, the patient is oriented to person, place and time. LABORATORY DATA: Ms. Ivory's labs and investigations were reviewed. She had an electrocardiogram, which shows normal sinus rhythm. She has leukocytosis with 12,300 white cells, of which 75.5% are ne utrophils, normal hemoglobin, normal platelet count, point of care glucose low at 59 at 241 hours tod ay, subsequently improved to 119, normal troponin I, normal sodium, decreased potassium of 3.3, eleva samuel blood urea nitrogen of 86, elevated creatinine of 1.77, last known creatinine 2.00 on 05/23/2018, unremarkable liver profile, mildly elevated calcium of 10.7, normal lactic acid and normal lipase. Urinalysis is positive for moderate amount of leukocyte esterase. ASSESSMENT AND PLAN: Ms. Ivory is a pleasant 82-year-old lady who was seen at [facility] on 05/26/2018. Her problem list includes: 1. Urinary tract infection: Ms. Ivory is presenting with urinary tract infection. We will treat h er with ceftriaxone, which has already been started in the emergency room. We will follow urine cult ures. 2. Hypoglycemic episodes: Etiology unclear. We will hold the patient's insulin for now. Continue her Accu-Cheks and dextrose containing fluids. Further management depending on how her Accu-Cheks re ad later today. 3. Atrial fibrillation: Appears to be stable, the patient is currently in sinus rhythm. 4. Congestive heart failure: Appears to be stable. 5. Hypertension: Monitor vital signs, titrate antihypertensives as needed. 6. Chronic kidney disease: Appears to be stable. Many thanks for allowing me to participate in your patient's care. Please feel free to contact me wi th any questions or concerns. LEVEL OF RISK: Moderate. LEVEL OF COMPLEXITY: Moderate.
[2018-05-26] MEDS: Acetaminophen 500 MG TAB PO PRN (17:40)
--- NOTE | 2018-05-26 19:21 | PRG ---
DATE OF SERVICE: 05/26/2018 SUBJECTIVE: Ms. Ivory was admitted to the hospital with recurrent hypoglycemia. It looks like she got hypoglycemic because she could not eat because she was taking a lot of potassium. Her potassium is low because she is taking metolazone every day. There seemed to be some miscommunication about the dose that she was supposed to take. She feels weak. OBJECTIVE: VITAL SIGNS: Her blood pressure 131/60, pulse 78. LUNGS: Clear. CARDIAC: High pitched systolic murmur with aortic stenosis. ABDOMEN: Soft, nontender. EXTREMITIES: Still significant edema. LABORATORY DATA: Most recent potassium was 3.3. She said she continues to have wound problems. ASSESSMENT: 1. Aortic stenosis. 2. Coronary artery disease. 3. Renal insufficiency. 4. Recurrent hypokalemia. PLAN: 1. She is to take metolazone no more than twice a week. 2. We were trying to get a device to help her mobilize her peripheral edema. Hopefully, we can get her wounds healed, so she may be a candidate for transcutaneous aortic valve replacement. Prognosis is guarded in this patient.
[2018-05-26] MEDS: Lorazepam 0.5 MG TAB PO SCH (19:51)
[2018-05-26] MEDS: Polyethylene Glycol 3350 17 GM Packet PO SCH (19:53)
[2018-05-26] MEDS: Atorvastatin Calcium 10 MG TAB PO SCH (20:05)
[2018-05-27] MEDS: Acetaminophen 500 MG TAB PO PRN ×2 (03:44→16:59)
[2018-05-27] MEDS: traMADol HCl 50 MG TAB PO PRN ×3 (03:45→16:57)
[2018-05-27] MEDS: Sodium Chloride 77 MEQ, Potassium Chloride 20 MEQ in Dextrose 10% in Water 1,000 ML IV SCH (04:33)
[2018-05-27 04:41] LABS: #Basophils 0.1 thou/uL (0.0-0.2); #Lymphocytes 1.6 thou/uL (1.20-3.40); #Monocytes 0.9 thou/uL (0.11-0.59); #Neutrophils 5.3 thou/uL (1.40-6.50); %Basophils 0.8 % (0.0-1.0); %Eosinophils 0.5 % (0.0-10.0); %Lymphocytes 19.8 % (21.0-51.0); %Monocytes 11.3 % (0.0-10.0); %Neutrophils 67.6 % (42.0-75.0); Hemoglobin 10.7 g/dL (12.0-16.0); Mean Corpuscular HGB CONC 30.1 g/dL (32.0-36.0); Mean Corpuscular Hemoglobin 26.2 pg (27.0-31.0); Mean Corpuscular Volume 87.1 fL (78.0-98.0); Mean Platelet Volume 7.2 fL (7.4-10.4); Platelet Count 326 thou/uL (130-400); RBC Distribution Width 15.5 % (11.5-14.5); White Blood Cell (WBC) Count 7.9 thou/uL (4.8-10.8)
[2018-05-27] MEDS: cefTRIAXone\\ROCEPHIN 1 GM in Sodium Chloride 0.9% 100 ML IVPB SCH (04:45)
[2018-05-27 04:57] LABS: Anion Gap 13 mmol/L (10-20); BUN (Urea Nitrogen) 61 mg/dL (9.8-20.1); Calc. Creatinine Clearance 27 mL/min (70-130); Calcium 9.4 mg/dL (7.8-10.44); Carbon Dioxide 30 mmol/L (23-31); Chloride 96 mmol/L (98-107); Estimated GFR-MDRD 27; Glucose 348 mg/dL (83-110); Potassium 3.8 mmol/L (3.5-5.1); Sodium 135 mmol/L (136-145)
[2018-05-27] MEDS: Levothyroxine Sodium 25 MCG TAB PO SCH (05:50)
[2018-05-27] MEDS: Levothyroxine Sodium 112 MCG TAB PO SCH (05:50)
[2018-05-27] MEDS: Morphine 2 MG/ML SYRINGE SLOW IVP PRN ×3 (08:22→20:29)
[2018-05-27] MEDS: Potassium Chloride 20 MEQ TAB PO SCH (08:24)
[2018-05-27] MEDS: Amiodarone 200 MG TAB PO SCH (08:27)
[2018-05-27] MEDS: Lubiprostone 24 MCG CAP PO SCH ×3 (08:27→23:07)
[2018-05-27] MEDS: Gabapentin 300 MG CAP PO SCH ×3 (08:27→23:05)
[2018-05-27] MEDS: predniSONE 5 MG TAB PO SCH (08:28)
[2018-05-27] MEDS: Simethicone Chewable 80 MG TAB PO SCH ×3 (08:28→23:07)
[2018-05-27] MEDS: Multivit, Therapeutic 1 TAB PO SCH (08:28)
[2018-05-27] MEDS: Nystatin Powder 15 GM BOT TOP SCH ×3 (08:29→23:07)
[2018-05-27] MEDS: Pantoprazole 40 MG GRANULES PACKET PO SCH (08:29)
[2018-05-27] MEDS ORDERED: Metolazone 5 MG TAB PO SCH (08:30)
[2018-05-27] MEDS: Torsemide 20 MG TAB PO SCH ×3 (08:30→23:07)
[2018-05-27] MEDS: Heparin 5,000 UNITS/ML VIAL SC SCH ×3 (08:32→23:06)
--- NOTE | 2018-05-27 10:07 | PRG ---
DATE OF SERVICE: 05/27/2018 Ms. Ivory is unable to eat. She has no chest pain or pressure. PHYSICAL EXAMINATION: VITAL SIGNS: Blood pressure 141/65, pulse 80, regular. LUNGS: Clear. CARDIAC: There is a high pitched systolic murmur as before of aortic stenosis. ABDOMEN: Soft, nontender. EXTREMITIES: There is severe edema. ASSESSMENT: 1. Aortic stenosis, moderate to severe. 2. Recurrent cellulitis with leg wounds. 3. Renal failure stage 3 currently. Estimated GFR is 27. 4. Hypokalemia, improved. 5. Unable to eat, probably combination of medicines and generalized illness. 6. History of reflux on proton pump inhibitors. 7. Atrial fibrillation, no recent fibrillation. 8. Has a tendency toward anemia thought to be high risk for anticoagulation. She has had severe ane elisabeth in October. Hemoglobin down to 7.3. PLAN: 1. Reduce amiodarone. 2. Reduce potassium. 3. Continue torsemide. 4. She was taking metolazone every day, that has been stopped. No other recommendations at this point.
[2018-05-27] MEDS: Ondansetron ODT 4 MG TAB PO PRN ×2 (11:08→18:05)
[2018-05-27] MEDS: Potassium Chloride 10 MEQ TAB PO SCH ×2 (11:23→16:58)
[2018-05-27] MEDS: Lorazepam 0.5 MG TAB PO SCH ×2 (15:42→20:27)
--- NOTE | 2018-05-27 17:27 | PDOC.PN ---
- Subjective Encounter Start Date: 05/27/18 Encounter Start Time: 07:00 Pt seen for followup re: UTI. Feels slightly better. Nausea+, vomited after eating. - Objective Resuscitation Status: Resuscitation Status FULL:Full Resuscitation MAR Reviewed: Yes Vital Signs & Weight: Vital Signs (12 hours) Temp Pulse Resp BP Pulse Ox 05/27/18 08:00 97.8 F 66 20 154/67 H 98 Weight Admit Weight 159 lb Weight 159 lb I&O: 05/26/18 05/27/18 05/28/18 06:59 06:59 06:59 Intake Total 3800 Output Total 550 Balance 3250 Result Diagrams: 05/27/18 04:18 05/27/18 04:18 Additional Labs: Accuchecks 05/27/18 05/27/18 05/26/18 11:56 06:24 19:41 POC Glucose 79 308 H 199 H Labs reviewed by me Phys Exam - Physical Examination Obese HEENT: moist MMs, sclera anicteric, oral pharynx no lesions, 2+ tonsils Neck: no nodes, no JVD, supple, full ROM Respiratory: no wheezing, no rales, no rhonchi, clear to auscultation bilateral Cardiovascular: RRR, no rub S1, S2 Gastrointestinal: soft, non-tender, no distention, positive bowel sounds Neurological: moves all 4 limbs Psychiatric: normal affect, A&O x 3 Deviation from normal: wounds as documented by nursing staff Dx/Plan (1) UTI (urinary tract infection) Status: Acute Comment: Presumed Proteus, continue IV ceftriaxone, follow urine culture (2) Severe aortic stenosis Code(s): I35.0 - NONRHEUMATIC AORTIC (VALVE) STENOSIS Status: Chronic Comment: stable (3) DM type 2 (diabetes mellitus, type 2) Status: Chronic Qualifiers: Diabetes mellitus fci insulin use: with bed bug exterminator use Diabetes mellitus complication status: with kidney complications Diabetes mellitus complication detail: with chronic kidney disease Chronic kidney disease stage : stage 3 (moderate) Qualified Code(s): E11.22 - Type 2 diabetes mellitus with diabetic chronic kidney disease; N18.3 - Chronic kidney disease, stage 3 ( moderate); Z79.4 - longterm (current) use of insulin Comment: pt's home insulin on hold due to hypoglycemia. Continue accuchecks, insulin sliding scale. (4) Dyslipidemia Code(s): E78.5 - HYPERLIPIDEMIA, UNSPECIFIED Status: Chronic Comment: continue statin (5) GERD (gastroesophageal reflux disease) Code(s): K21.9 - GASTRO-ESOPHAGEAL REFLUX DISEASE WITHOUT ESOPHAGITIS Status: Chronic Qualifiers: Esophagitis presence: esophagitis presence not specified Qualified Code(s) : K21.9 - Gastro-esophageal reflux disease without esophagitis Comment: continue PPI (6) Hypertension Code(s): I10 - ESSENTIAL (PRIMARY) HYPERTENSION Status: Chronic Qualifiers: Hypertension type: essential hypertension Qualified Code(s): I10 - Essential (primary) hypertension Comment: onitor vital signs, titrate antihypertensives as needed (7) Hypothyroidism Code(s): E03.9 - HYPOTHYROIDISM, UNSPECIFIED Status: Chronic Qualifiers: Comment: continue synthroid (8) CKD (chronic kidney disease) stage 4, GFR 15-29 ml/min Code(s): N18.4 - CHRONIC KIDNEY DISEASE, STAGE 4 (SEVERE) Status: Chronic - Plan continue antibiotics, PT/OT, DVT proph w/heparin * . stable Review of Systems - Review of Systems Constitutional: weakness Respiratory: negative: Cough, Shortness of Breath, SOB with Excertion, Sputum, Wheezing Cardiovascular: negative: chest pain, palpitations, orthopnea, paroxysmal nocturnal dyspnea, edema, light headedness Gastrointestinal: Nausea, Vomiting. negative: Abdominal Pain, Diarrhea, Constipation, Melena, Hematochezia Genitourinary: negative: Dysuria, Frequency, Incontinence, Hematuria, Retention Skin: negative: Rash, Lesions, [place], Bruising - Medications/Allergies Allergies/Adverse Reactions: Allergies Allergy/AdvReac Type Severity Reaction Status Date / Time hydrocodone [From [place]] Allergy Verified 05/26/18 07:33 Medications: Current Medications Acetaminophen (Tylenol) 500 mg PO Q6H PRN PRN Reason: Mild Pain (1-3) Acetaminophen (Tylenol) 1,000 mg PO Q6H PRN PRN Reason: Headache/Fever or Pain MILD Last Admin: 05/27/18 16:59 Dose: 1,000 mg Amiodarone HCl (Cordarone) 100 mg PO DAILY [facility] Aspirin (Aspirin Chewable) 81 mg PO DAILY [facility] Last Admin: 05/27/18 08:27 Dose: 81 mg Atorvastatin Calcium (Lipitor) 10 mg PO HS [facility] Last Admin: 05/26/18 20:05 Dose: Not Given Cholecalciferol (Vitamin D3) 5,000 units PO DAILY [facility] Last Admin: 05/27/18 08:25 Dose: 5,000 units Dextrose/Water (Dextrose 50%) 25 gm SLOW IVP PRN PRN PRN Reason: Hypoglycemia Gabapentin (Neurontin) 600 mg PO BID [facility] Last Admin: 05/27/18 11:27 Dose: Not Given Glucagon (Glucagon) 1 mg IM PRN PRN PRN Reason: Hypoglycemia Heparin Sodium (Porcine) (Heparin) 5,000 units SC TID [facility] Last Admin: 05/27/18 15:43 Dose: 5,000 units Hydroxyzine HCl (Atarax) 25 mg PO Q6H PRN PRN Reason: Itching Dextrose/Water (D5w) 1,000 mls @ 0 mls/hr IV .Q0M PRN PRN Reason: Hypoglycemia Ceftriaxone Sodium 1 gm/ (Sodium Chloride) 100 mls @ 200 mls/hr IVPB 0400 [facility] Last Admin: 05/27/18 04:45 Dose: 100 mls Insulin Human Lispro (Humalog) 0 units SC .MILD SLIDING SCALE PRN PRN Reason: Mild Correctional Scale Last Admin: 05/27/18 06:33 Dose: 5 unit Levothyroxine Sodium (Synthroid) 112 mcg PO 0600 [facility] Last Admin: 05/27/18 05:50 Dose: 112 mcg Levothyroxine Sodium (Synthroid) 25 mcg PO 0600 [facility] Last Admin: 05/27/18 05:50 Dose: 25 mcg Lorazepam (Ativan) 0.5 mg PO HS [facility] Last Admin: 05/27/18 15:42 Dose: 0.5 mg Lorazepam (Ativan) 0.5 mg PO Q6H PRN PRN Reason: Anxiety Lubiprostone (Amitiza) 24 mcg PO BID [facility] Last Admin: 05/27/18 11:26 Dose: Not Given Morphine Sulfate (Morphine) 2 mg SLOW IVP Q6H PRN PRN Reason: Severe Pain (7-10) Last Admin: 05/27/18 15:02 Dose: 2 mg Multivitamins (Theragran) 1 tab PO DAILY [facility] Last Admin: 05/27/18 08:28 Dose: 1 tab Nystatin (Mycostatin Powder) 0 gm TOP TID [facility] Last Admin: 05/27/18 15:46 Dose: 1 appful Ondansetron HCl (Zofran Odt) 4 mg PO Q8H PRN PRN Reason: Nausea Last Admin: 05/27/18 11:08 Dose: 4 mg Pantoprazole Sodium (Protonix) 40 mg PO DAILY [facility] Polyethylene Glycol (Miralax) 17 gm PO HS [facility] Last Admin: 05/26/18 19:53 Dose: 17 gm Potassium Chloride (Klor-Con 10) 10 meq PO TID[facility] Last Admin: 05/27/18 16:58 Dose: 10 meq Prednisone (Prednisone) 10 mg PO QAM-[facility] Last Admin: 05/27/18 08:28 Dose: 10 mg Simethicone (Mylicon Chewable) 80 mg PO TID [facility] Last Admin: 05/27/18 15:42 Dose: 80 mg Sodium Chloride (Flush - Normal Saline) 10 ml IVF Q12HR [facility] Last Admin: 05/27/18 08:29 Dose: 10 ml Sodium Chloride (Flush - Normal Saline) 10 ml IVF PRN PRN PRN Reason: Saline Flush Torsemide (Demadex) 40 mg PO BID [facility] Last Admin: 05/27/18 11:26 Dose: Not Given Tramadol HCl (Ultram) 50 mg PO Q6H PRN PRN Reason: Moderate Pain (4-6) Last Admin: 05/26/18 11:46 Dose: 50 mg Tramadol HCl (Ultram) 100 mg PO Q6H PRN PRN Reason: PAIN-MODERATE 1ST LINE Last Admin: 05/27/18 16:57 Dose: 100 mg
[2018-05-27] MEDS ORDERED: Milk Of Magnesia 30 ML UDCUP PO SCH (19:30)
[2018-05-27] MEDS: Polyethylene Glycol 3350 17 GM Packet PO SCH (19:49)
[2018-05-27] MEDS ORDERED: Ondansetron HCl/PF 4 MG/2 ML Vial SLOW IVP PRN (20:07)
[2018-05-27] MEDS: Ondansetron HCl/PF 4 MG/2 ML Vial IVP PRN (20:20)
[2018-05-27] MEDS: Atorvastatin Calcium 10 MG TAB PO SCH (23:05)
[2018-05-28] MEDS: Morphine 2 MG/ML SYRINGE SLOW IVP PRN ×4 (02:28→22:42)
[2018-05-28] MEDS: cefTRIAXone\\ROCEPHIN 1 GM in Sodium Chloride 0.9% 100 ML IVPB SCH (04:38)
[2018-05-28 06:06] LABS: #Lymphocytes 0.5 thou/uL (1.20-3.40); #Monocytes 0.4 thou/uL (0.11-0.59); #Neutrophils 10.5 thou/uL (1.40-6.50); %Eosinophils 0.3 % (0.0-10.0); %Lymphocytes 4.6 % (21.0-51.0); %Monocytes 3.5 % (0.0-10.0); %Neutrophils 91.5 % (42.0-75.0); Hemoglobin 11.2 g/dL (12.0-16.0); Mean Corpuscular HGB CONC 30.3 g/dL (32.0-36.0); Mean Corpuscular Hemoglobin 26.4 pg (27.0-31.0); Mean Corpuscular Volume 87.3 fL (78.0-98.0); Mean Platelet Volume 7.5 fL (7.4-10.4); Platelet Count 316 thou/uL (130-400); RBC Distribution Width 15.6 % (11.5-14.5); Red Blood Cell (RBC) Count 4.23 mill/uL (4.20-5.40); White Blood Cell (WBC) Count 11.4 thou/uL (4.8-10.8)
[2018-05-28 06:07] LABS: Anion Gap 13 mmol/L (10-20); BUN (Urea Nitrogen) 55 mg/dL (9.8-20.1); Calc. Creatinine Clearance 34 mL/min (70-130); Carbon Dioxide 27 mmol/L (23-31); Chloride 102 mmol/L (98-107); Estimated GFR-MDRD 35; Glucose 122 mg/dL (83-110); Potassium 4.2 mmol/L (3.5-5.1); Sodium 138 mmol/L (136-145)
[2018-05-28] MEDS: Levothyroxine Sodium 112 MCG TAB PO SCH (06:15)
[2018-05-28] MEDS: Levothyroxine Sodium 25 MCG TAB PO SCH (06:15)
[2018-05-28] MEDS: Milk Of Magnesia 30 ML UDCUP PO SCH (09:17)
[2018-05-28] MEDS: predniSONE 5 MG TAB PO SCH (09:23)
[2018-05-28] MEDS: Amiodarone 200 MG TAB PO SCH (09:25)
[2018-05-28] MEDS: Gabapentin 300 MG CAP PO SCH ×2 (09:26→20:23)
[2018-05-28] MEDS: Heparin 5,000 UNITS/ML VIAL SC SCH ×3 (09:26→20:24)
[2018-05-28] MEDS: Lubiprostone 24 MCG CAP PO SCH ×2 (09:30→20:24)
[2018-05-28] MEDS: Potassium Chloride 10 MEQ TAB PO SCH ×3 (09:30→16:21)
[2018-05-28] MEDS: Multivit, Therapeutic 1 TAB PO SCH (09:33)
[2018-05-28] MEDS: Simethicone Chewable 80 MG TAB PO SCH ×3 (09:34→20:27)
[2018-05-28] MEDS: Nystatin Powder 15 GM BOT TOP SCH ×3 (09:34→20:27)
[2018-05-28] MEDS: Torsemide 20 MG TAB PO SCH ×2 (09:35→20:37)
[2018-05-28] MEDS: Acetaminophen 500 MG TAB PO PRN ×2 (11:18→19:05)
[2018-05-28] MEDS: Sucralfate 1 GM/10 ML UDCUP PO SCH ×3 (12:02→18:18)
--- NOTE | 2018-05-28 12:03 | RAD ---
ABDOMEN 1 VIEW: HISTORY: Right side abdominal pain. COMPARISON: Radiograph of 12/07/2017. FINDINGS: No dilated air-filled loops of large or small bowel. Loop recording device projects over the left he mithorax. There is superior migration of the fulcrum component of the right femoral nail which may have a anoma lous articulation with the acetabulum. The ovoid radiopacity projecting into the left hemipelvis ma y be ingested in nature. Given that there is bowel over the left hip, a hernia is possible. There is collapse of the L1 vertebra, similar. IMPRESSION: No evidence for bowel obstruction. No acute intraabdominal abnormality. POS: [facility]
--- NOTE | 2018-05-28 12:38 | PDOC.PN ---
- Subjective Encounter Start Date: 05/28/18 Encounter Start Time: 12:30 Pt seen for followup re: UTI. Reports nausea and vomiting. Reports R sided abdo pain. Reports explosive diarrhea last night. No fevers or chills. - Objective Resuscitation Status: Resuscitation Status FULL:Full Resuscitation MAR Reviewed: Yes Vital Signs & Weight: Vital Signs (12 hours) Temp Pulse Resp BP Pulse Ox 05/28/18 07:52 97.3 F L 82 20 161/71 H 99 05/28/18 05:54 99 Weight Admit Weight 159 lb Weight 159 lb I&O: 05/27/18 05/28/18 05/29/18 06:59 06:59 06:59 Intake Total 3800 1170 Output Total 550 1120 Balance 3250 50 Result Diagrams: 05/28/18 05:32 05/28/18 05:32 Additional Labs: Accuchecks 05/28/18 05/27/18 05/27/18 12:05 22:14 17:19 POC Glucose 100 78 120 H Radiology Reviewed by me: Yes (Labs reviewed by me) Phys Exam - Physical Examination Obese HEENT: moist MMs, sclera anicteric, oral pharynx no lesions, 2+ tonsils Neck: no nodes, no JVD, supple, full ROM Respiratory: no wheezing, no rales, no rhonchi, clear to auscultation bilateral Cardiovascular: RRR, no rub S1, S2 Gastrointestinal: soft, non-tender, no distention, positive bowel sounds Neurological: moves all 4 limbs Psychiatric: A&O x 3 Deviation from normal: appears tired Dx/Plan (1) UTI (urinary tract infection) Status: Acute Comment: Proteus UTI, continue IV ceftriaxone since pt is unable to tolerate oral intake (2) Severe aortic stenosis Code(s): I35.0 - NONRHEUMATIC AORTIC (VALVE) STENOSIS Status: Chronic Comment: stable (3) DM type 2 (diabetes mellitus, type 2) Status: Chronic Qualifiers: Diabetes mellitus assisted insulin use: with assisted use Diabetes mellitus complication status: with kidney complications Diabetes mellitus complication detail: with chronic kidney disease Chronic kidney disease stage : stage 3 (moderate) Qualified Code(s): E11.22 - Type 2 diabetes mellitus with diabetic chronic kidney disease; N18.3 - Chronic kidney disease, stage 3 ( moderate); Z79.4 - business development assistant (current) use of insulin Comment: pt's home insulin on hold, continue accuchecks, insulin sliding scale. (4) Dyslipidemia Code(s): E78.5 - HYPERLIPIDEMIA, UNSPECIFIED Status: Chronic Comment: on statin (5) GERD (gastroesophageal reflux disease) Code(s): K21.9 - GASTRO-ESOPHAGEAL REFLUX DISEASE WITHOUT ESOPHAGITIS Status: Chronic Qualifiers: Esophagitis presence: esophagitis presence not specified Qualified Code(s) : K21.9 - Gastro-esophageal reflux disease without esophagitis Comment: on PPI (6) Hypertension Code(s): I10 - ESSENTIAL (PRIMARY) HYPERTENSION Status: Chronic Qualifiers: Hypertension type: essential hypertension Qualified Code(s): I10 - Essential (primary) hypertension Comment: onitor vital signs, titrate antihypertensives as needed (7) Hypothyroidism Code(s): E03.9 - HYPOTHYROIDISM, UNSPECIFIED Status: Chronic Qualifiers: Comment: on synthroid (8) CKD (chronic kidney disease) stage 4, GFR 15-29 ml/min Code(s): N18.4 - CHRONIC KIDNEY DISEASE, STAGE 4 (SEVERE) Status: Chronic - Plan * . consult orthopedics for femoral nail abnormality Review of Systems - Review of Systems Constitutional: weakness. negative: fever, chills, sweats, malaise Cardiovascular: negative: chest pain, palpitations, orthopnea, paroxysmal nocturnal dyspnea, edema, light headedness Gastrointestinal: Nausea, Vomiting, Abdominal Pain, Diarrhea. negative: Constipation, Melena, Hematochezia Genitourinary: negative: Dysuria, Frequency, Incontinence, Hematuria, Retention Musculoskeletal: negative: Neck Pain, Shoulder Pain, Arm Pain, Back Pain, Hand Pain, Leg Pain, Foot Pain - Medications/Allergies Allergies/Adverse Reactions: Allergies Allergy/AdvReac Type Severity Reaction Status Date / Time hydrocodone [From [place]] Allergy Verified 05/26/18 07:33 Medications: Current Medications Acetaminophen (Tylenol) 500 mg PO Q6H PRN PRN Reason: Mild Pain (1-3) Acetaminophen (Tylenol) 1,000 mg PO Q6H PRN PRN Reason: Headache/Fever or Pain MILD Last Admin: 05/28/18 11:18 Dose: 1,000 mg Amiodarone HCl (Cordarone) 100 mg PO DAILY [facility] Last Admin: 05/28/18 09:25 Dose: 100 mg Aspirin (Aspirin Chewable) 81 mg PO DAILY [facility] Last Admin: 05/28/18 09:25 Dose: 81 mg Atorvastatin Calcium (Lipitor) 10 mg PO HS [facility] Last Admin: 05/27/18 23:05 Dose: Not Given Cholecalciferol (Vitamin D3) 5,000 units PO DAILY [facility] Last Admin: 05/28/18 09:26 Dose: Not Given Dextrose/Water (Dextrose 50%) 25 gm SLOW IVP PRN PRN PRN Reason: Hypoglycemia Gabapentin (Neurontin) 600 mg PO BID [facility] Last Admin: 05/28/18 09:26 Dose: Not Given Glucagon (Glucagon) 1 mg IM PRN PRN PRN Reason: Hypoglycemia Heparin Sodium (Porcine) (Heparin) 5,000 units SC TID [facility] Last Admin: 05/28/18 09:26 Dose: 5,000 units Hydroxyzine HCl (Atarax) 25 mg PO Q6H PRN PRN Reason: Itching Dextrose/Water (D5w) 1,000 mls @ 0 mls/hr IV .Q0M PRN PRN Reason: Hypoglycemia Ceftriaxone Sodium 1 gm/ (Sodium Chloride) 100 mls @ 200 mls/hr IVPB 0400 [facility] Last Admin: 05/28/18 04:38 Dose: 100 mls Insulin Human Lispro (Humalog) 0 units SC .MILD SLIDING SCALE PRN PRN Reason: Mild Correctional Scale Last Admin: 05/27/18 06:33 Dose: 5 unit Levothyroxine Sodium (Synthroid) 112 mcg PO 0600 [facility] Last Admin: 05/28/18 06:15 Dose: 112 mcg Levothyroxine Sodium (Synthroid) 25 mcg PO 0600 [facility] Last Admin: 05/28/18 06:15 Dose: 25 mcg Lorazepam (Ativan) 0.5 mg PO HS [facility] Last Admin: 05/27/18 20:27 Dose: 0.5 mg Lorazepam (Ativan) 0.5 mg PO Q6H PRN PRN Reason: Anxiety Lubiprostone (Amitiza) 24 mcg PO BID [facility] Last Admin: 05/28/18 09:30 Dose: Not Given Magnesium Hydroxide (Milk Of Magnesium) 30 ml PO DAILY [facility] Last Admin: 05/28/18 09:17 Dose: Not Given Morphine Sulfate (Morphine) 2 mg SLOW IVP Q6H PRN PRN Reason: Severe Pain (7-10) Last Admin: 05/28/18 09:26 Dose: 2 mg Multivitamins (Theragran) 1 tab PO DAILY [facility] Last Admin: 05/28/18 09:33 Dose: Not Given Nystatin (Mycostatin Powder) 0 gm TOP TID [facility] Last Admin: 05/28/18 09:34 Dose: 1 appful Ondansetron HCl (Zofran Odt) 4 mg PO Q8H PRN PRN Reason: Nausea Last Admin: 05/27/18 18:05 Dose: 4 mg Ondansetron HCl (Zofran) 4 mg IVP Q6H PRN PRN Reason: Nausea/Vomiting Last Admin: 05/27/18 20:20 Dose: 4 mg Ondansetron HCl (Zofran) 4 mg SLOW IVP Q6H PRN PRN Reason: Nausea/Vomiting Pantoprazole Sodium (Protonix) 40 mg PO DAILY [facility] Last Admin: 05/28/18 09:34 Dose: 40 mg Polyethylene Glycol (Miralax) 17 gm PO HS [facility] Last Admin: 05/27/18 19:49 Dose: 17 gm Potassium Chloride (Klor-Con 10) 10 meq PO TID[facility] Last Admin: 05/28/18 12:02 Dose: 10 meq Prednisone (Prednisone) 10 mg PO QAM-[facility] Last Admin: 05/28/18 09:23 Dose: Not Given Simethicone (Mylicon Chewable) 80 mg PO TID [facility] Last Admin: 05/28/18 09:34 Dose: Not Given Sodium Chloride (Flush - Normal Saline) 10 ml IVF Q12HR [facility] Last Admin: 05/28/18 09:35 Dose: 10 ml Sodium Chloride (Flush - Normal Saline) 10 ml IVF PRN PRN PRN Reason: Saline Flush Last Admin: 05/28/18 02:29 Dose: 10 ml Sucralfate (Carafate) 1 gm PO Q6HR [facility] Last Admin: 05/28/18 12:02 Dose: 1 gm Torsemide (Demadex) 40 mg PO BID [facility] Last Admin: 05/28/18 09:35 Dose: Not Given Tramadol HCl (Ultram) 50 mg PO Q6H PRN PRN Reason: Moderate Pain (4-6) Last Admin: 05/26/18 11:46 Dose: 50 mg Tramadol HCl (Ultram) 100 mg PO Q6H PRN PRN Reason: PAIN-MODERATE 1ST LINE Last Admin: 05/27/18 16:57 Dose: 100 mg
--- NOTE | 2018-05-28 13:39 | RAD ---
RIGHT FEMUR 2 VIEWS: HISTORY: Internal fixation. Right hip fracture. FINDINGS: Short medullary hailey and compression nail transfix the right hip fracture, in anatomic alignment. No perihardware lucency. Osseous structures are demineralized. Degenerative changes of the knee. Prom inent arterial calcification. IMPRESSION: 1. Internal fixation right hip without evidence of hardware complication. 2. Osteoporosis. 3. Atherosclerosis. POS: [facility]
[2018-05-28] MEDS: traMADol HCl 50 MG TAB PO PRN ×2 (13:46→20:22)
[2018-05-28] MEDS ORDERED: Dextrose 50% Abboject 50 ML SYRINGE SLOW IVP SCH (17:00)
[2018-05-28] MEDS ORDERED: Loperamide HCl 2 MG CAP PO SCH (17:00)
--- NOTE | 2018-05-28 17:37 | EKG ---
Test Reason : Blood Pressure : / mmHG Vent. Rate : 071 BPM Atrial Rate : 071 BPM P-R Int : 194 ms QRS Dur : 080 ms QT Int : 338 ms P-R-T Axes : 048 -19 126 degrees QTc Int : 367 ms Normal sinus rhythm Voltage criteria for left ventricular hypertrophy Inferior infarct , age undetermined Abnormal ECG Confirmed by COBY MAR, FLYNN ([id number]), editor in chief CHARO PAZ ([id number]) on 05/28/2018 5:36:54 PM Referred By: Confirmed By:FLYNN TENORIO MD
[2018-05-28] MEDS: Atorvastatin Calcium 10 MG TAB PO SCH (20:23)
[2018-05-28] MEDS: Lorazepam 0.5 MG TAB PO SCH (20:24)
[2018-05-28] MEDS: Polyethylene Glycol 3350 17 GM Packet PO SCH (20:27)
[2018-05-28] MEDS: Ondansetron HCl/PF 4 MG/2 ML Vial IVP PRN (22:42)
[2018-05-28] MEDS: Loperamide HCl 2 MG CAP PO PRN (22:42)
[2018-05-29] MEDS: Loperamide HCl 2 MG CAP PO PRN (01:36)
[2018-05-29] MEDS: Ondansetron HCl/PF 4 MG/2 ML Vial IVP PRN ×2 (04:10→20:56)
[2018-05-29] MEDS: Morphine 2 MG/ML SYRINGE SLOW IVP PRN ×3 (04:10→16:31)
[2018-05-29] MEDS: cefTRIAXone\\ROCEPHIN 1 GM in Sodium Chloride 0.9% 100 ML IVPB SCH (04:10)
[2018-05-29 04:25] LABS: #Eosinphils 0.1 thou/uL (0.0-0.7); #Monocytes 0.6 thou/uL (0.11-0.59); #Neutrophils 4.6 thou/uL (1.40-6.50); %Basophils 0.5 % (0.0-1.0); %Eosinophils 1.2 % (0.0-10.0); %Lymphocytes 15.9 % (21.0-51.0); %Neutrophils 72.3 % (42.0-75.0); Hemoglobin 10.6 g/dL (12.0-16.0); Mean Corpuscular HGB CONC 30.2 g/dL (32.0-36.0); Mean Corpuscular Hemoglobin 26.3 pg (27.0-31.0); Mean Corpuscular Volume 87.1 fL (78.0-98.0); Mean Platelet Volume 6.8 fL (7.4-10.4); Platelet Count 270 thou/uL (130-400); RBC Distribution Width 15.8 % (11.5-14.5); Red Blood Cell (RBC) Count 4.05 mill/uL (4.20-5.40); White Blood Cell (WBC) Count 6.3 thou/uL (4.8-10.8)
[2018-05-29 04:37] LABS: Anion Gap 12 mmol/L (10-20); BUN (Urea Nitrogen) 44 mg/dL (9.8-20.1); Calc. Creatinine Clearance 39 mL/min (70-130); Calcium 8.8 mg/dL (7.8-10.44); Carbon Dioxide 27 mmol/L (23-31); Chloride 103 mmol/L (98-107); Estimated GFR-MDRD 40; Glucose 92 mg/dL (83-110); Potassium 3.7 mmol/L (3.5-5.1); Sodium 138 mmol/L (136-145)
[2018-05-29] MEDS: Sucralfate 1 GM/10 ML UDCUP PO SCH ×3 (05:07→17:06)
[2018-05-29] MEDS: Levothyroxine Sodium 25 MCG TAB PO SCH (05:07)
[2018-05-29] MEDS: Levothyroxine Sodium 112 MCG TAB PO SCH (05:07)
[2018-05-29] MEDS: Lorazepam 0.5 MG TAB PO PRN ×3 (05:07→17:06)
[2018-05-29] MEDS: traMADol HCl 50 MG TAB PO PRN ×4 (05:08→23:36)
[2018-05-29] MEDS ORDERED: Dextrose 50% Abboject 50 ML SYRINGE SLOW IVP SCH (05:45)
[2018-05-29] MEDS: predniSONE 5 MG TAB PO SCH (08:42)
[2018-05-29] MEDS: Multivit, Therapeutic 1 TAB PO SCH (08:43)
[2018-05-29] MEDS: Milk Of Magnesia 30 ML UDCUP PO SCH (08:43)
[2018-05-29] MEDS: Simethicone Chewable 80 MG TAB PO SCH ×3 (08:43→21:53)
[2018-05-29] MEDS: Torsemide 20 MG TAB PO SCH ×2 (08:43→21:54)
[2018-05-29] MEDS: Potassium Chloride 10 MEQ TAB PO SCH ×3 (08:45→16:31)
[2018-05-29] MEDS: Heparin 5,000 UNITS/ML VIAL SC SCH ×3 (08:45→20:54)
[2018-05-29] MEDS: Amiodarone 200 MG TAB PO SCH (08:45)
[2018-05-29] MEDS: Lubiprostone 24 MCG CAP PO SCH ×2 (08:46→20:54)
[2018-05-29] MEDS: Nystatin Powder 15 GM BOT TOP SCH ×3 (08:47→20:54)
[2018-05-29] MEDS: Acetaminophen 500 MG TAB PO PRN ×2 (08:51→15:03)
[2018-05-29] MEDS: Gabapentin 300 MG CAP PO SCH ×2 (08:56→21:53)
[2018-05-29] MEDS: Piperacillin/Tazobactam 2.25 GM in Sodium Chloride 0.9% 100 ML IVPB SCH ×3 (10:14→20:59)
--- NOTE | 2018-05-29 12:41 | PDOC.PN ---
- Subjective Encounter Start Date: 05/29/18 Encounter Start Time: 07:00 Pt seen for followup re: UTI. Reports nausea and vomiting are better. Diarrhea is better. Feels weak overall. - Objective Resuscitation Status: Resuscitation Status FULL:Full Resuscitation MAR Reviewed: Yes Vital Signs & Weight: Vital Signs (12 hours) Temp Pulse Resp BP Pulse Ox 05/29/18 08:00 97 F L 79 16 165/74 H 99 Weight Admit Weight 159 lb Weight 159 lb I&O: 05/28/18 05/29/18 05/30/18 06:59 06:59 06:59 Intake Total 1170 730 Output Total 1120 Balance 50 730 Result Diagrams: 05/29/18 04:10 05/29/18 04:10 Additional Labs: Accuchecks 05/29/18 05/29/18 05/29/18 10:56 05:12 01:14 POC Glucose 94 86 89 05/28/18 05/28/18 05/28/18 19:37 16:05 13:32 POC Glucose 139 H 83 95 labs reviewed by me Phys Exam - Physical Examination Constitutional: NAD HEENT: moist MMs Neck: supple Respiratory: clear to auscultation bilateral Cardiovascular: RRR Gastrointestinal: soft Neurological: moves all 4 limbs Psychiatric: normal affect Dx/Plan (1) UTI (urinary tract infection) Status: Acute Comment: Proteus and Morganella UTI, switch to IV meropenem since Morganella resistant to ceftriaxone (avoiding fluoroquinolones since pt is on amiodarone). (2) Severe aortic stenosis Code(s): I35.0 - NONRHEUMATIC AORTIC (VALVE) STENOSIS Status: Chronic Comment: stable (3) DM type 2 (diabetes mellitus, type 2) Status: Chronic Qualifiers: Diabetes mellitus shelter insulin use: with shelter use Diabetes mellitus complication status: with kidney complications Diabetes mellitus complication detail: with chronic kidney disease Chronic kidney disease stage : stage 3 (moderate) Qualified Code(s): E11.22 - Type 2 diabetes mellitus with diabetic chronic kidney disease; N18.3 - Chronic kidney disease, stage 3 ( moderate); Z79.4 - correction (current) use of insulin Comment: pt's home insulin on hold (4) Dyslipidemia Code(s): E78.5 - HYPERLIPIDEMIA, UNSPECIFIED Status: Chronic Comment: will continue statin (5) GERD (gastroesophageal reflux disease) Code(s): K21.9 - GASTRO-ESOPHAGEAL REFLUX DISEASE WITHOUT ESOPHAGITIS Status: Chronic Qualifiers: Esophagitis presence: esophagitis presence not specified Qualified Code(s) : K21.9 - Gastro-esophageal reflux disease without esophagitis Comment: will continue PPI (6) Hypertension Code(s): I10 - ESSENTIAL (PRIMARY) HYPERTENSION Status: Chronic Qualifiers: Hypertension type: essential hypertension Qualified Code(s): I10 - Essential (primary) hypertension Comment: titrate antihypertensives as needed (7) Hypothyroidism Code(s): E03.9 - HYPOTHYROIDISM, UNSPECIFIED Status: Chronic Qualifiers: Comment: on synthroid (8) CKD (chronic kidney disease) stage 4, GFR 15-29 ml/min Code(s): N18.4 - CHRONIC KIDNEY DISEASE, STAGE 4 (SEVERE) Status: Chronic Comment: creatinine improved to 1.27 today - Plan continue antibiotics, PT/OT * . Review of Systems - Review of Systems Respiratory: negative: Cough, Shortness of Breath, SOB with Excertion, Pleuritic Pain, Wheezing Cardiovascular: negative: chest pain, palpitations, orthopnea, paroxysmal nocturnal dyspnea, edema, light headedness - Medications/Allergies Allergies/Adverse Reactions: Allergies Allergy/AdvReac Type Severity Reaction Status Date / Time hydrocodone [From [place]] Allergy Verified 05/26/18 07:33 Medications: Current Medications Acetaminophen (Tylenol) 500 mg PO Q6H PRN PRN Reason: Mild Pain (1-3) Acetaminophen (Tylenol) 1,000 mg PO Q6H PRN PRN Reason: Headache/Fever or Pain MILD Last Admin: 05/29/18 08:51 Dose: 1,000 mg Amiodarone HCl (Cordarone) 100 mg PO DAILY [facility] Last Admin: 05/29/18 08:45 Dose: 100 mg Aspirin (Aspirin Chewable) 81 mg PO DAILY [facility] Last Admin: 05/29/18 08:46 Dose: 81 mg Atorvastatin Calcium (Lipitor) 10 mg PO HS [facility] Last Admin: 05/28/18 20:23 Dose: 10 mg Cholecalciferol (Vitamin D3) 5,000 units PO DAILY [facility] Last Admin: 05/29/18 08:42 Dose: Not Given Dextrose/Water (Dextrose 50%) 25 gm SLOW IVP PRN PRN PRN Reason: Hypoglycemia Gabapentin (Neurontin) 600 mg PO BID [facility] Last Admin: 05/29/18 08:56 Dose: Not Given Glucagon (Glucagon) 1 mg IM PRN PRN PRN Reason: Hypoglycemia Heparin Sodium (Porcine) (Heparin) 5,000 units SC TID [facility] Last Admin: 05/29/18 08:45 Dose: 5,000 units Hydroxyzine HCl (Atarax) 25 mg PO Q6H PRN PRN Reason: Itching Dextrose/Water (D5w) 1,000 mls @ 0 mls/hr IV .Q0M PRN PRN Reason: Hypoglycemia Piperacillin Sod/Tazobactam (Sod 2.25 gm/ Sodium Chloride) 100 mls @ 200 mls/ hr IVPB 0300,0900,1500,2100 [facility] Last Admin: 05/29/18 10:14 Dose: 100 mls Insulin Human Lispro (Humalog) 0 units SC .MILD SLIDING SCALE PRN PRN Reason: Mild Correctional Scale Last Admin: 05/27/18 06:33 Dose: 5 unit Levothyroxine Sodium (Synthroid) 112 mcg PO 0600 [facility] Last Admin: 05/29/18 05:07 Dose: 112 mcg Levothyroxine Sodium (Synthroid) 25 mcg PO 0600 [facility] Last Admin: 05/29/18 05:07 Dose: 25 mcg Loperamide HCl (Imodium) 2 mg PO PRN PRN PRN Reason: Diarrhea/Loose Stools Last Admin: 05/29/18 01:36 Dose: 2 mg Lorazepam (Ativan) 0.5 mg PO HS [facility] Last Admin: 05/28/18 20:24 Dose: 0.5 mg Lorazepam (Ativan) 0.5 mg PO Q6H PRN PRN Reason: Anxiety Last Admin: 05/29/18 10:53 Dose: 0.5 mg Lubiprostone (Amitiza) 24 mcg PO BID [facility] Last Admin: 05/29/18 08:46 Dose: Not Given Magnesium Hydroxide (Milk Of Magnesium) 30 ml PO DAILY [facility] Last Admin: 05/29/18 08:43 Dose: Not Given Morphine Sulfate (Morphine) 2 mg SLOW IVP Q6H PRN PRN Reason: Severe Pain (7-10) Last Admin: 05/29/18 10:12 Dose: 2 mg Multivitamins (Theragran) 1 tab PO DAILY [facility] Last Admin: 05/29/18 08:43 Dose: Not Given Nystatin (Mycostatin Powder) 0 gm TOP TID [facility] Last Admin: 05/29/18 08:47 Dose: 1 appful Ondansetron HCl (Zofran Odt) 4 mg PO Q8H PRN PRN Reason: Nausea Last Admin: 05/27/18 18:05 Dose: 4 mg Ondansetron HCl (Zofran) 4 mg IVP Q6H PRN PRN Reason: Nausea/Vomiting Last Admin: 05/29/18 04:10 Dose: 4 mg Ondansetron HCl (Zofran) 4 mg SLOW IVP Q6H PRN PRN Reason: Nausea/Vomiting Pantoprazole Sodium (Protonix) 40 mg PO DAILY [facility] Last Admin: 05/29/18 08:43 Dose: Not Given Polyethylene Glycol (Miralax) 17 gm PO HS [facility] Last Admin: 05/28/18 20:27 Dose: 17 gm Potassium Chloride (Klor-Con 10) 10 meq PO TID[facility] Last Admin: 05/29/18 11:08 Dose: 10 meq Prednisone (Prednisone) 10 mg PO QAM[facility] Last Admin: 05/29/18 08:42 Dose: Not Given Simethicone (Mylicon Chewable) 80 mg PO TID [facility] Last Admin: 05/29/18 08:43 Dose: Not Given Sodium Chloride (Flush - Normal Saline) 10 ml IVF Q12HR [facility] Last Admin: 05/29/18 09:36 Dose: Not Given Sodium Chloride (Flush - Normal Saline) 10 ml IVF PRN PRN PRN Reason: Saline Flush Last Admin: 05/29/18 04:11 Dose: 10 ml Sucralfate (Carafate) 1 gm PO Q6HR [facility] Last Admin: 05/29/18 11:08 Dose: 1 gm Torsemide (Demadex) 40 mg PO BID [facility] Last Admin: 05/29/18 08:43 Dose: Not Given Tramadol HCl (Ultram) 50 mg PO Q6H PRN PRN Reason: Moderate Pain (4-6) Last Admin: 05/29/18 05:08 Dose: 50 mg Tramadol HCl (Ultram) 100 mg PO Q6H PRN PRN Reason: PAIN-MODERATE 1ST LINE Last Admin: 05/29/18 11:08 Dose: 100 mg
[2018-05-29] MEDS: Lorazepam 0.5 MG TAB PO SCH (20:56)
[2018-05-29] MEDS: Atorvastatin Calcium 10 MG TAB PO SCH (21:53)
[2018-05-29] MEDS: Polyethylene Glycol 3350 17 GM Packet PO SCH (21:53)
[2018-05-29] MEDS: Dextrose 5 %-0.45 % NaCl 1,000 ML IV SCH (21:54)
[2018-05-29] MEDS: Morphine 4 MG/ML VIAL SLOW IVP PRN (22:26)
[2018-05-30] MEDS: Sucralfate 1 GM/10 ML UDCUP PO SCH ×5 (00:04→23:59)
[2018-05-30] MEDS: Piperacillin/Tazobactam 2.25 GM in Sodium Chloride 0.9% 100 ML IVPB SCH ×4 (04:09→20:03)
[2018-05-30] MEDS: Morphine 4 MG/ML VIAL SLOW IVP PRN ×4 (04:22→22:25)
[2018-05-30] MEDS: traMADol HCl 50 MG TAB PO PRN ×4 (06:10→20:03)
[2018-05-30] MEDS: Levothyroxine Sodium 25 MCG TAB PO SCH (06:11)
[2018-05-30] MEDS: Levothyroxine Sodium 112 MCG TAB PO SCH (06:11)
[2018-05-30] MEDS: Ondansetron ODT 4 MG TAB PO PRN (09:11)
[2018-05-30] MEDS: predniSONE 5 MG TAB PO SCH (09:13)
[2018-05-30] MEDS: Gabapentin 300 MG CAP PO SCH ×2 (09:13→20:06)
[2018-05-30] MEDS: Potassium Chloride 10 MEQ TAB PO SCH ×3 (09:14→17:31)
[2018-05-30] MEDS: Amiodarone 200 MG TAB PO SCH (09:14)
[2018-05-30] MEDS: Simethicone Chewable 80 MG TAB PO SCH ×3 (09:15→21:00)
[2018-05-30] MEDS: Torsemide 20 MG TAB PO SCH ×2 (09:35→20:08)
[2018-05-30] MEDS: Heparin 5,000 UNITS/ML VIAL SC SCH ×3 (09:35→20:05)
[2018-05-30] MEDS: Lubiprostone 24 MCG CAP PO SCH ×2 (09:35→20:07)
[2018-05-30] MEDS: Milk Of Magnesia 30 ML UDCUP PO SCH (09:35)
[2018-05-30] MEDS: Multivit, Therapeutic 1 TAB PO SCH (09:36)
[2018-05-30] MEDS: Nystatin Powder 15 GM BOT TOP SCH ×3 (09:36→20:07)
[2018-05-30] MEDS: Acetaminophen 500 MG TAB PO PRN ×2 (10:39→16:40)
[2018-05-30] MEDS: Lorazepam 0.5 MG TAB PO PRN ×2 (10:39→15:20)
--- NOTE | 2018-05-30 11:19 | CON ---
DATE OF CONSULTATION: 05/27/2018 REFERRING PHYSICIAN: Adalberto Bustillos M.D. REASON FOR CONSULTATION: Dysphagia. HISTORY OF PRESENT ILLNESS: Ms. Arminda Ivory is a very pleasant 82-year-old female hospi talized with hypoglycemia. On admission, blood sugar was 150. The patient also has history of hypok alemia. Since admission, her blood sugar is back to normal. The blood sugar today this morning was 308 and today this afternoon is 120. The patient eating better and blood sugar seems to be stabilize d. The patient had seen Dr. Andres in the past on an EGD done few months ago. The EGD as per the ope rative note was normal. She also had an empiric dilation because of history of dysphagia. This was done, I believe in 11/2017. The patient also was seen by Dr. Andres in 03/2018 when she was hospitali zed because of left thigh abscess. At that time as per Dr. Andres consult that he felt she does need a repeat EGD because the EGD was negative few months ago. Although, she had empiric dilation done, p atient did not improve with her symptoms. The patient appears very comfortable. She is awake, alert , and communicative. The patient complains of feeling full and bloated in the epigastric area. She has actually no true dysphagia. She feels the food goes down to the epigastric area and does not go any more. She feels . She also complains of abdominal pain. Abdominal pain apparently is cota estefani in nature. The pain is over the left upper quadrant and left lumbar area and also going towards the back. This pain has been off and on for a while. The patient also tells me that she feels bloat ed and also has pain when she does not go to the bathroom. She has had no stool for the last couple of days. She does take MiraLax on a regular basis and she is going to bathroom, but last couple of d ays she had no stool. There is no nausea, no vomiting. She tells me she had an EGD few months ago a nd ulcer disease was seen. She was given some medicine to coat the stomach and at that time she actu ally felt better. No other relevant history. ALLERGIES: HYDROCODONE. MEDICAL ILLNESSES: 1. Diabetes mellitus. 2. Chronic venous stasis dermatitis. 3. Chronic back pain. 4. Gout. 5. Morbid obesity. 6. Hypothyroidism. 7. Hypertension. 8. Dyslipidemia. 9. Chronic kidney disease. 10. Atrial fibrillation, on anticoagulation. 11. Aortic stenosis, seen by Dr. Seth Lynch. PAST SURGICAL HISTORY: 1. Status post cholecystectomy. 2. 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 3. Appendectomy. 4. Hysterectomy. 5. Bilateral cataract surgery. 6. EGD and repeat dilation few months ago. SOCIAL HISTORY: The patient does not smoke or drink alcohol. FAMILY HISTORY: A daughter with breast cancer, son at age of 47 from colon cancer. MEDICATIONS: List reviewed. REVIEW OF SYSTEMS: A 10-point system reviewed. Constitutional: No fever. Has good appetite. No w eight loss. Respiratory system: No history of chronic cough, hemoptysis, or exertional dyspnea. Ca rdiovascular system: No chest pain, no palpitation, no dyspnea on exertion, orthopnea or PND. Gastr ointestinal: As in the history of present illness. Genitourinary: No dysuria, hematuria. Musculos keletal: History of back pain. PHYSICAL EXAMINATION: GENERAL: The patient is obese, appears very comfortable. She is awake, alert, oriented to time, magy ce and person. VITAL SIGNS: Actually very stable. She is afebrile, pulse is 66, blood pressure 154/67. HEENT: Conjunctivae clear. NECK: Supple. No adenitis or thyromegaly noted. CARDIOVASCULAR SYSTEM: First and second heart sounds normal. She has a systolic murmur grade 4/6. LUNGS: Clear to auscultation. ABDOMEN: Abdomen is tender over the right upper quadrant, epigastric area, and also right lumbar are a and over the right CVA angle. There is no rebound or guarding. No organomegaly or masses. Bowel sounds normal. EXTREMITIES: Reveal no edema. LABORATORY DATA: CBC: WBC 7900, hemoglobin 10.7, hematocrit 30.7, MCV is 87, platelet count 326,000 , polymorphs 67, lymphocytes 19, monocytes 11. Serum chemistries: Sodium 135, potassium 3.8, chlori de 96, bicarbonate 30, BUN is 61, creatinine 1.81, glucose 348, calcium 9.4. CLINICAL IMPRESSION: An 82-year-old female with chronic abdominal pain, abdominal bloating , and constipation. She has really no true dysphagia. She feels more of bloating and fullness in th e epigastric area. The patient had EGD done few months ago and was negative. She also underwent emp iric dilation . My personal impression is that she has mostly dysfunctional bowel disease. Her over all exam is very benign. She also thinks her GI symptom worsens when she is constipated. RECOMMENDATIONS: 1. Milk of magnesia 60 mL today and 30 mL tomorrow. 2. No need for repeat endoscopic studies and Dr. Andres will assume care from Wednesday.
--- NOTE | 2018-05-30 13:25 | PRG ---
DATE OF SERVICE: 05/28/2018 SUBJECTIVE: Ms. Arminda Ivory is a very pleasant 82-year-old female hospitalized because of hypoglycemia. GI was consulted because of dysphagia. The patient had EGD done in 11/[address] Adalberto Landeros, and as per report, EGD was negative. She had dysphagia at that time also. She had an em piric dilation with an [employer]. However, her symptoms persisted. The patient's symptoms a re more of abdominal bloating and swelling, not true dysphagia. She feels the food is not moving. S he was having constipation yesterday and she got some milk of magnesia. She says she threw up the mi lk of magnesia, but she has had about 4 loose stools today. She also complains of abdominal pain as before. The pain is predominantly over the right upper quadrant, right lumbar area going towards the back. This is chronic pain. The patient has had a cholecystectomy in the past. Her appetite remains poor. She does not feel like eating. She says somebody gave her something to coat her stom ach last time and she felt better. I could not find the name of the medication, I presume most likel y it is Carafate. PHYSICAL EXAMINATION: GENERAL: Appears comfortable. VITAL SIGNS: Afebrile, pulse is 68, blood pressure is 150/68. CARDIOVASCULAR SYSTEM: First and second heart sounds normal. She has systolic murmur. LUNGS: Clear to auscultation. ABDOMEN EXAM: Benign as before. Abdomen is predominantly tender over the right upper quadrant going towards the right lumbar area and also towards the back. LABORATORY DATA: From today, CBC: WBC 11,400, hemoglobin 11.2, hematocrit 36.9, MCV 87.3, platelet count 316,000, polymorphs , lymphocytes 4. Serum chemistries: Sodium 138, potassium 4.2, chlor gayle 102, bicarbonate 27, BUN is 55, creatinine is 1.45, glucose 122, calcium 9. RECOMMENDATIONS: 1. Obtain stool for C. difficile, culture, ova, and parasites. 2. Start patient on Carafate suspension 1 gram p.o. 4 times a day. 3. Encouraged the patient to eat as much as possible. 4. Because of the kidney disease, a contrast CAT scan whenever possible.
[2018-05-30] MEDS: Ondansetron HCl/PF 4 MG/2 ML Vial IVP PRN (13:40)
[2018-05-30] MEDS: Dextrose 5 %-0.45 % NaCl 1,000 ML IV SCH (16:41)
--- NOTE | 2018-05-30 16:55 | PDOC.PN ---
- Subjective Encounter Start Date: 05/30/18 Encounter Start Time: 07:00 Pt seen for followup re: UTI. Reports nausea and vomiting. No fevers. - Objective Resuscitation Status: Resuscitation Status FULL:Full Resuscitation MAR Reviewed: Yes Vital Signs & Weight: Vital Signs (12 hours) Temp Pulse Resp BP Pulse Ox 05/30/18 08:00 97 F L 63 16 167/71 H 96 Weight Admit Weight 159 lb Weight 159 lb I&O: 05/29/18 05/30/18 05/31/18 06:59 06:59 06:59 Intake Total 730 650 Balance 730 650 Result Diagrams: 05/29/18 04:10 05/29/18 04:10 Additional Labs: Accuchecks 05/30/18 05/30/18 05/30/18 16:35 10:50 06:08 POC Glucose 101 73 82 05/29/18 05/29/18 21:10 17:20 POC Glucose 82 77 EKG Reviewed by me: Yes (Tele: NSR) Phys Exam - Physical Examination Constitutional: NAD HEENT: moist MMs Neck: supple Respiratory: clear to auscultation bilateral Cardiovascular: RRR Gastrointestinal: soft Neurological: moves all 4 limbs Psychiatric: normal affect Dx/Plan (1) UTI (urinary tract infection) Status: Acute Comment: on meropenem for Proteus and Morganella UTI, Morganella resistant to ceftriaxone. (2) Severe aortic stenosis Code(s): I35.0 - NONRHEUMATIC AORTIC (VALVE) STENOSIS Status: Chronic Comment: stable (3) DM type 2 (diabetes mellitus, type 2) Status: Chronic Qualifiers: Diabetes mellitus senior care insulin use: with termite treater helper use Diabetes mellitus complication status: with kidney complications Diabetes mellitus complication detail: with chronic kidney disease Chronic kidney disease stage : stage 3 (moderate) Qualified Code(s): E11.22 - Type 2 diabetes mellitus with diabetic chronic kidney disease; N18.3 - Chronic kidney disease, stage 3 ( moderate); Z79.4 - oysterman (current) use of insulin Comment: pt's home insulin on hold, no further episodes of hypoglycemia (4) Dyslipidemia Code(s): E78.5 - HYPERLIPIDEMIA, UNSPECIFIED Status: Chronic Comment: continue statin (5) GERD (gastroesophageal reflux disease) Code(s): K21.9 - GASTRO-ESOPHAGEAL REFLUX DISEASE WITHOUT ESOPHAGITIS Status: Chronic Qualifiers: Esophagitis presence: esophagitis presence not specified Qualified Code(s) : K21.9 - Gastro-esophageal reflux disease without esophagitis Comment: continue PPI (6) Hypertension Code(s): I10 - ESSENTIAL (PRIMARY) HYPERTENSION Status: Chronic Qualifiers: Hypertension type: essential hypertension Qualified Code(s): I10 - Essential (primary) hypertension Comment: titrate antihypertensives as needed (7) Hypothyroidism Code(s): E03.9 - HYPOTHYROIDISM, UNSPECIFIED Status: Chronic Qualifiers: Comment: on synthroid (8) CKD (chronic kidney disease) stage 4, GFR 15-29 ml/min Code(s): N18.4 - CHRONIC KIDNEY DISEASE, STAGE 4 (SEVERE) Status: Chronic Comment: Improving - Plan * . Review of Systems - Review of Systems Respiratory: negative: Cough, Shortness of Breath, SOB with Excertion, Sputum, Wheezing Cardiovascular: negative: chest pain, palpitations, orthopnea, paroxysmal nocturnal dyspnea, edema, light headedness Gastrointestinal: Nausea, Vomiting - Medications/Allergies Allergies/Adverse Reactions: Allergies Allergy/AdvReac Type Severity Reaction Status Date / Time hydrocodone [From [place]] Allergy Verified 05/26/18 07:33 Medications: Current Medications Acetaminophen (Tylenol) 500 mg PO Q6H PRN PRN Reason: Mild Pain (1-3) Acetaminophen (Tylenol) 1,000 mg PO Q6H PRN PRN Reason: Headache/Fever or Pain MILD Last Admin: 05/30/18 16:40 Dose: 1,000 mg Amiodarone HCl (Cordarone) 100 mg PO DAILY [facility] Last Admin: 05/30/18 09:14 Dose: 100 mg Aspirin (Aspirin Chewable) 81 mg PO DAILY [facility] Last Admin: 05/30/18 09:14 Dose: 81 mg Atorvastatin Calcium (Lipitor) 10 mg PO HS [facility] Last Admin: 05/29/18 21:53 Dose: Not Given Cholecalciferol (Vitamin D3) 5,000 units PO DAILY [facility] Last Admin: 05/30/18 09:35 Dose: Not Given Dextrose/Water (Dextrose 50%) 25 gm SLOW IVP PRN PRN PRN Reason: Hypoglycemia Gabapentin (Neurontin) 600 mg PO BID [facility] Last Admin: 05/30/18 09:13 Dose: 600 mg Glucagon (Glucagon) 1 mg IM PRN PRN PRN Reason: Hypoglycemia Heparin Sodium (Porcine) (Heparin) 5,000 units SC TID [facility] Last Admin: 05/30/18 16:46 Dose: Not Given Hydroxyzine HCl (Atarax) 25 mg PO Q6H PRN PRN Reason: Itching Dextrose/Water (D5w) 1,000 mls @ 0 mls/hr IV .Q0M PRN PRN Reason: Hypoglycemia Piperacillin Sod/Tazobactam (Sod 2.25 gm/ Sodium Chloride) 100 mls @ 200 mls/ hr IVPB 0300,0900,1500,2100 [facility] Last Admin: 05/30/18 09:16 Dose: 100 mls Dextrose/Sodium Chloride (D5 1/2 Ns) 1,000 mls @ 60 mls/hr IV .[id number] [facility] Last Admin: 05/30/18 16:41 Dose: 1,000 mls Insulin Human Lispro (Humalog) 0 units SC .MILD SLIDING SCALE PRN PRN Reason: Mild Correctional Scale Last Admin: 05/27/18 06:33 Dose: 5 unit Levothyroxine Sodium (Synthroid) 112 mcg PO 0600 [facility] Last Admin: 05/30/18 06:11 Dose: 112 mcg Levothyroxine Sodium (Synthroid) 25 mcg PO 0600 [facility] Last Admin: 05/30/18 06:11 Dose: 25 mcg Loperamide HCl (Imodium) 2 mg PO PRN PRN PRN Reason: Diarrhea/Loose Stools Last Admin: 05/29/18 01:36 Dose: 2 mg Lorazepam (Ativan) 0.5 mg PO HS [facility] Last Admin: 05/29/18 20:56 Dose: 0.5 mg Lorazepam (Ativan) 0.5 mg PO Q6H PRN PRN Reason: Anxiety Last Admin: 05/30/18 15:20 Dose: 0.5 mg Lubiprostone (Amitiza) 24 mcg PO BID [facility] Last Admin: 05/30/18 09:35 Dose: Not Given Magnesium Hydroxide (Milk Of Magnesium) 30 ml PO DAILY [facility] Last Admin: 05/30/18 09:35 Dose: Not Given Morphine Sulfate (Morphine) 2 mg SLOW IVP Q6H PRN PRN Reason: Severe Pain (7-10) Last Admin: 05/30/18 16:40 Dose: 2 mg Multivitamins (Theragran) 1 tab PO DAILY [facility] Last Admin: 05/30/18 09:36 Dose: Not Given Nystatin (Mycostatin Powder) 0 gm TOP TID [facility] Last Admin: 05/30/18 16:46 Dose: Not Given Ondansetron HCl (Zofran Odt) 4 mg PO Q8H PRN PRN Reason: Nausea Last Admin: 05/30/18 09:11 Dose: 4 mg Ondansetron HCl (Zofran) 4 mg IVP Q6H PRN PRN Reason: Nausea/Vomiting Last Admin: 05/30/18 13:40 Dose: 4 mg Ondansetron HCl (Zofran) 4 mg SLOW IVP Q6H PRN PRN Reason: Nausea/Vomiting Pantoprazole Sodium (Protonix) 40 mg PO DAILY [facility] Last Admin: 05/30/18 09:15 Dose: 40 mg Polyethylene Glycol (Miralax) 17 gm PO HS [facility] Last Admin: 05/29/18 21:53 Dose: Not Given Potassium Chloride (Klor-Con 10) 10 meq PO TID-[facility] Last Admin: 05/30/18 12:37 Dose: 10 meq Prednisone (Prednisone) 10 mg PO QAM-[facility] Last Admin: 05/30/18 09:13 Dose: 10 mg Simethicone (Mylicon Chewable) 80 mg PO TID [facility] Last Admin: 05/30/18 16:47 Dose: Not Given Sodium Chloride (Flush - Normal Saline) 10 ml IVF Q12HR [facility] Last Admin: 05/30/18 09:35 Dose: Not Given Sodium Chloride (Flush - Normal Saline) 10 ml IVF PRN PRN PRN Reason: Saline Flush Last Admin: 05/29/18 04:11 Dose: 10 ml Sucralfate (Carafate) 1 gm PO Q6HR [facility] Last Admin: 05/30/18 12:37 Dose: 1 gm Torsemide (Demadex) 40 mg PO BID [facility] Last Admin: 05/30/18 09:35 Dose: Not Given Tramadol HCl (Ultram) 50 mg PO Q6H PRN PRN Reason: Moderate Pain (4-6) Last Admin: 05/29/18 05:08 Dose: 50 mg Tramadol HCl (Ultram) 100 mg PO Q6H PRN PRN Reason: PAIN-MODERATE 1ST LINE Last Admin: 05/30/18 13:39 Dose: 100 mg
[2018-05-30] MEDS: Lorazepam 0.5 MG TAB PO SCH (20:06)
[2018-05-30] MEDS: Atorvastatin Calcium 10 MG TAB PO SCH (20:06)
[2018-05-30] MEDS: Polyethylene Glycol 3350 17 GM Packet PO SCH (20:07)
[2018-05-31] MEDS: Piperacillin/Tazobactam 2.25 GM in Sodium Chloride 0.9% 100 ML IVPB SCH ×4 (02:30→20:24)
[2018-05-31] MEDS: traMADol HCl 50 MG TAB PO PRN ×4 (02:45→20:34)
[2018-05-31] MEDS: Lorazepam 0.5 MG TAB PO PRN ×3 (02:46→22:01)
[2018-05-31] MEDS: Levothyroxine Sodium 112 MCG TAB PO SCH (05:05)
[2018-05-31] MEDS: Levothyroxine Sodium 25 MCG TAB PO SCH (05:05)
[2018-05-31] MEDS: Ondansetron HCl/PF 4 MG/2 ML Vial IVP PRN (05:05)
[2018-05-31] MEDS: Morphine 4 MG/ML VIAL SLOW IVP PRN (05:06)
[2018-05-31] MEDS: Sucralfate 1 GM/10 ML UDCUP PO SCH ×2 (05:06→11:07)
[2018-05-31] MEDS: Potassium Chloride 10 MEQ TAB PO SCH ×3 (09:19→16:47)
[2018-05-31] MEDS: predniSONE 5 MG TAB PO SCH (09:19)
[2018-05-31] MEDS: Amiodarone 200 MG TAB PO SCH (09:30)
[2018-05-31] MEDS: Gabapentin 300 MG CAP PO SCH ×2 (09:31→20:26)
[2018-05-31] MEDS: Heparin 5,000 UNITS/ML VIAL SC SCH ×3 (09:31→20:26)
[2018-05-31] MEDS: Nystatin Powder 15 GM BOT TOP SCH ×3 (09:32→20:28)
[2018-05-31] MEDS: Multivit, Therapeutic 1 TAB PO SCH (09:32)
[2018-05-31] MEDS: Milk Of Magnesia 30 ML UDCUP PO SCH (09:32)
[2018-05-31] MEDS: Lubiprostone 24 MCG CAP PO SCH ×2 (09:32→20:27)
[2018-05-31] MEDS: Simethicone Chewable 80 MG TAB PO SCH ×3 (09:33→20:27)
[2018-05-31] MEDS: Torsemide 20 MG TAB PO SCH ×2 (09:34→20:28)
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
--- NOTE | 2018-05-31 10:16 | PQF ---
CLINICAL DOCUMENTATION IMPROVEMENT CLARIFICATION FORM: ICD-10 Updated PLEASE DO AN ADDENDUM TO THE PROGRESS NOTE WITH ANY DOCUMENTATION UPDATES OR ADDITIONS AND CARRY THROUGH TO DC SUMMARY. THANK YOU. DATE: 05/31/18; 06/01/18; 06/02/18 ATTN: Dr. Sky; Dr. Bustillos Please exercise your independent, professional judgment in responding to the clarification form. Clinical indicators are provided on the bottom of this form for your review Please check appropriate box(s): HEART FAILURE: A. ACUITY: [ ] Acute [ ] Acute on Chronic [ ] Chronic B. TYPE: [ ] Systolic / HFrEF [ ] Diastolic / HFpEF [ ] Combined Systolic / Diastolic [ ] Other diagnosis [ ] Unable to determine In addition, please specify: Present on Admission (POA): [ ] Yes [ ] No [ ] Unable to determine For continuity of documentation, please document condition throughout progress notes and discharge summary. Thank You. CLINICAL INDICATORS - SIGNS / SYMPTOMS / LABS H&P 05/26: CONGESTIVE HEART FAILURE: APPEARS TO BE STABLE CARDIOLOGY PN 05/26: EXTREMITIES: STILL SIGNIFICANT EDEMA. AORTIC STENOSIS. CAD. RISKS: H&P: HX OF DM 2, HTN, CKD 3-4. ATRIAL FIBRILLATION. CHF. TREATMENT: CPOE 05/26: DEMADEX 40 MG PO BID Thank you, Emelina (This form is maintained as a part of the permanent medical record) 2014 [employer]. All Rights Reserved Emelina Machado RN, BSN [email or web address] Office: [phone] [facility]
--- NOTE | 2018-05-31 12:30 | PRG ---
DATE OF SERVICE: 05/31/2018 SUBJECTIVE: Ms. Ivory continues to feel very nauseated, cannot keep anything down. She is not shor t of breath. PHYSICAL EXAMINATION: VITAL SIGNS: Blood pressure 164/68, pulse 65, it is regular. LUNGS: Clear. CARDIAC: There is a high pitched aortic stenosis murmur. ABDOMEN: Soft, nontender. EXTREMITIES: There is moderate edema. ASSESSMENT: 1. Congestive heart failure, diastolic. 2. Aortic stenosis, moderate to severe. 3. Recurrent wounds in the lower extremities. 4. Nausea of uncertain etiology. PLAN: 1. We will go and stop the amiodarone. She has not had any atrial fibrillation in quite some time. 2. No other changes at this time. Overall seems to be gradually getting worse, not eating and has f ailure to thrive pattern.
[2018-05-31] MEDS: Ondansetron ODT 4 MG TAB PO PRN (13:59)
[2018-05-31] MEDS: Dextrose 5 %-0.45 % NaCl 1,000 ML IV SCH (14:25)
[2018-05-31] MEDS: Acetaminophen 500 MG TAB PO PRN ×2 (16:47→23:09)
[2018-05-31] MEDS: Ondansetron ODT 4 MG TAB PO SCH (17:10)
[2018-05-31] MEDS: Atorvastatin Calcium 10 MG TAB PO SCH (20:25)
--- NOTE | 2018-05-31 20:25 | PRG ---
DATE OF SERVICE: 05/31/2018 SUBJECTIVE: The patient states that she is not doing well and has not been able to tolerate much by oral intake due to increased nausea and vomiting during this admission. She does also complain of mi ldly increased acid reflux symptoms on top of the above. Lastly, she relates that she had diarrhea c haracterizes approximately 4-5 liquid bowel movements 2-3 nights ago, but since that time has only britt d 1 bowel movement that was small volume in nature. Currently, she states that she has mild periumbi lical/midepigastric abdominal pain, but unchanged from previous. She also complains of mild intermit tent dysphagia with a sensation that food is not necessarily going down, but has been improving with PPI administration. Currently, she denies any fevers, chills, diarrhea or odynophagia. OBJECTIVE: VITAL SIGNS: Temperature 97.7, pulse 65, blood pressure 164/68, respiratory rate 18, satting 98% on room air. GENERAL: The patient was bedside, in no acute distress. Alert and oriented x4. CARDIOVASCULAR: Regular rate and rhythm, 4/6 systolic murmur best heard at the right upper sternal b order that was high pitched in character. RESPIRATORY: Clear to auscultation bilaterally. ABDOMEN: Normoactive bowel sounds. Mild tenderness to palpation in all abdominal quadrants. EXTREMITIES: No cyanosis, clubbing or edema. LABORATORY DATA: No current labs are available for review. IMAGING DATA: Abdominal x-ray obtained on 05/28/2018 showed no dilated air-filled loops of large or small bowel and acute intra-abdominal abnormality. 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 Abdominal pain: The patient has had multiple hospitalizations for increased right upper quadrant/mid epigastric abdominal pain characterized as a cramping type sensation that is constant and radiates to the periumbilical region. She also does carry a diagnosis of significant constipation most likely d ue to chronic narcotic use, which may eventually result in a functional gastroparesis type picture. During this hospitalization, it sounds like she had increased diarrhea during one particular day, but has not had any bowel movement since that time. With a lack of bowel movements, she has had increas ing abdominal pain over the last 24-48 hours, which could coincide with her bowel habits as well. RECOMMENDATIONS: 1. We would continue lubiprostone 24 mcg b.i.d. as well as MiraLax daily as part of her bowel regime n while on chronic opiate use. 2. We would place the patient on a lower fiber diet given the possibility of gastroparesis further c ompounding her abdominal pain and/or nausea/vomiting. 3. We would attempt to minimize any narcotic administration given the increased risk of constipation and further contributing to her abdominal pain. 4. I will start the patient on naloxegol 12.5 mg daily and attempt to reverse the narcotic effects o n the gut. Dysphagia: The patient is presenting with chronic history of dysphagia characterized as the sensatio n of food getting stuck around the mid chest and would occur with both solid and liquid foods. [facility] did undergo an upper endoscopy on 12/09/2017, which showed a relatively normal esophagus with no evidence of stricture, stenosis, mass lesions or ulcerations. She was subsequently empirically d ilated to 18 mm, but did not have any significant change in her symptoms with this intervention. How ever, with regular PPI use as an outpatient, she had significant improvement of her dysphagia as an o utpatient, making this more likely to be an acid reflux type mediated event versus gastroparesis or a combination of the two. Also with the possibility of gastroparesis and given her significant kyphos is relatively bedbound status while in the hospital, it could potentially worsen acid reflux symptoms , nausea and vomiting. RECOMMENDATIONS: 1. I would continue pantoprazole 40 mg in the morning, 30-45 minutes before breakfast. 2. I would maintain standard antireflux precautions including maintaining an upright posture for britton roximately 2-3 hours after the ingestion of food. 3. We would continue a lower fiber/low residue diet given the possibility of gastroparesis. 4. No plans for esophageal manometry at this time nor there are any plans to repeat the upper endosc opy given the normal findings in 11/2017 for exactly the same symptoms. We will continue to follow. Please call with any additional questions.
[2018-05-31] MEDS: Polyethylene Glycol 3350 17 GM Packet PO SCH (20:27)
[2018-06-01] MEDS: Ondansetron ODT 4 MG TAB PO SCH ×3 (01:44→17:00)
[2018-06-01] MEDS: Piperacillin/Tazobactam 2.25 GM in Sodium Chloride 0.9% 100 ML IVPB SCH ×4 (02:03→22:29)
[2018-06-01 04:50] LABS: #Basophils 0.1 thou/uL (0.0-0.2); #Lymphocytes 1.7 thou/uL (1.20-3.40); #Monocytes 0.6 thou/uL (0.11-0.59); #Neutrophils 2.8 thou/uL (1.40-6.50); %Basophils 1.4 % (0.0-1.0); %Eosinophils 0.7 % (0.0-10.0); %Lymphocytes 32.5 % (21.0-51.0); %Monocytes 12.1 % (0.0-10.0); %Neutrophils 53.2 % (42.0-75.0); Hemoglobin 10.4 g/dL (12.0-16.0); Mean Corpuscular HGB CONC 30.6 g/dL (32.0-36.0); Mean Corpuscular Hemoglobin 26.6 pg (27.0-31.0); Mean Corpuscular Volume 86.9 fL (78.0-98.0); Mean Platelet Volume 7.3 fL (7.4-10.4); Platelet Count 250 thou/uL (130-400); RBC Distribution Width 15.2 % (11.5-14.5); Red Blood Cell (RBC) Count 3.92 mill/uL (4.20-5.40); White Blood Cell (WBC) Count 5.2 thou/uL (4.8-10.8)
[2018-06-01 05:04] LABS: Anion Gap 9 mmol/L (10-20); BUN (Urea Nitrogen) 10 mg/dL (9.8-20.1); Calc. Creatinine Clearance 53 mL/min (70-130); Calcium 8.8 mg/dL (7.8-10.44); Carbon Dioxide 23 mmol/L (23-31); Chloride 109 mmol/L (98-107); Estimated GFR-MDRD 57; Glucose 112 mg/dL (83-110); Potassium 3.8 mmol/L (3.5-5.1); Sodium 137 mmol/L (136-145)
[2018-06-01] MEDS: Levothyroxine Sodium 25 MCG TAB PO SCH (05:25)
[2018-06-01] MEDS: Levothyroxine Sodium 112 MCG TAB PO SCH (05:25)
[2018-06-01] MEDS: Dextrose 5 %-0.45 % NaCl 1,000 ML IV SCH ×2 (05:26→17:16)
[2018-06-01] MEDS: Acetaminophen 500 MG TAB PO PRN ×2 (08:06→14:29)
[2018-06-01] MEDS: Potassium Chloride 10 MEQ TAB PO SCH ×3 (08:09→17:00)
[2018-06-01] MEDS: Gabapentin 300 MG CAP PO SCH ×2 (08:09→22:28)
[2018-06-01] MEDS: predniSONE 5 MG TAB PO SCH (08:09)
[2018-06-01] MEDS: Lubiprostone 24 MCG CAP PO SCH ×2 (08:10→22:25)
[2018-06-01] MEDS: Heparin 5,000 UNITS/ML VIAL SC SCH ×3 (08:10→22:27)
[2018-06-01] MEDS: Simethicone Chewable 80 MG TAB PO SCH ×3 (08:11→21:55)
[2018-06-01] MEDS: Torsemide 20 MG TAB PO SCH ×2 (08:11→21:56)
[2018-06-01] MEDS: Multivit, Therapeutic 1 TAB PO SCH (08:12)
[2018-06-01] MEDS: Nystatin Powder 15 GM BOT TOP SCH ×2 (08:12→14:30)
[2018-06-01] MEDS: Milk Of Magnesia 30 ML UDCUP PO SCH (08:14)
[2018-06-01] MEDS: traMADol HCl 50 MG TAB PO PRN ×2 (10:41→22:25)
[2018-06-01] MEDS: Lorazepam 0.5 MG TAB PO PRN ×2 (12:39→18:36)
--- NOTE | 2018-06-01 12:44 | PRG ---
DATE OF SERVICE: 06/01/2018 REASON FOR CONSULTATION: Nausea, vomiting, abdominal pain, constipation. SUBJECTIVE: The patient states that this morning she is relatively unchanged in terms of her ability to adequately tolerate oral intake, she further added that she was able to tolerate approximately 3 spoonful's of grits this morning without the appearance of nausea and vomiting within 20 minutes afte r ingestion. She continues to have periumbilical/midepigastric abdominal pain, but unchanged from pr evious. In terms of or severity or location. Over the last 24 hours she has had approximately one s mall volume semi-solid bowel movement that she described to me yesterday. She has not had any additi onal bowel movement since our interview yesterday. Currently, she denies any fevers, chills, diarrhe a or odynophagia. OBJECTIVE: VITAL SIGNS: Temperature 98, pulse 71, blood pressure 163/75, respiratory rate 20, satting 98% on ro om air. GENERAL: The patient was lying in bed in no acute distress, alert and oriented x4. CARDIOVASCULAR: Regular rate and rhythm, 4/6 systolic murmur best heard at the right upper sternal b order. It was high pitch in character. RESPIRATORY: Clear to auscultation bilaterally. ABDOMEN: Normoactive bowel sounds. Mild tenderness to palpation in all abdominal quadrants. EXTREMITIES: No cyanosis, clubbing or edema. LABORATORY DATA: CBC with a white blood cell count of 5.2, hemoglobin 10.4, hematocrit 34.1, platele ts 250. Chemistry with a sodium of 137, potassium 3.8, chloride 109, CO2 of 23, BUN 10, creatinine 0 .94, glucose 112. IMAGING DATA: No current GI imaging is available for review. 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 Abdominal pain. The patient has had multiple hospitalizations for increased right upper quadrant/mid epigastric/periumbilical abdominal pain characterized as a cramping type sensation that is constant and radiates to the periumbilical region. She does also carry a diagnosis of chronic pain syndrome a nd has been taking significant narcotics for many years. 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 At this point in time, given her isolated episodes of more semi-solid bowel movements, but decreased frequency she may also have an element of encopresis a s well. RECOMMENDATIONS: 1. We would continue lubiprostone 24 mcg b.i.d. as well as MiraLax daily as part of her bowel regime n with chronic opiate use. 2. Would continue lower fiber diet given the possibility of functional gastroparesis secondary to na rcotic use. 3. Would attempt to minimize any narcotic administration given the increased risk of constipation an d further contributing to her abdominal pain. 4. Would continue Naloxegol 12.5 mg daily in an attempt to reverse the narcotic effects on the gut. Dysphagia. The patient is presenting with a chronic history of nausea, vomiting, and dysphagia jud cterized as a sensation of food getting stuck around the chest and will occur with both solid and liq uid foods. Upper endoscopy performed on 12/09/2017 showed a relatively normal esophagus with no evid ence of stricture, stenosis, mass lesions or ulcerations. She subsequently had esophageal dilation t o 18 mm, but did not have any significant change in her symptoms with this intervention. With the re gular use appropriately dosed PPI she has had significant reduction of dysphagia as well as nausea an d vomiting symptoms in the recent past, making an acid reflux type mediated event more likely to be t he causative nature of her nausea, vomiting and dysphagia. However, gastroparesis secondary to chron ic opiate use cannot be ruled out at this time. She also has significant kyphosis of her thoracic sp ine which could also place her at increased risk for acid reflux mediated events. RECOMMENDATIONS: 1. I would continue pantoprazole 40 mg in the morning, 30-45 minutes before breakfast. 2. Would maintain standard antireflux precautions including maintaining an upright posture for appro ximately 2 hour to 3 hours after the ingestion of food/liquids. 3. Would continue lower fiber/low residue diet given the possibility of functional gastroparesis. 4. Continue scheduled antiemetics for nausea control. We will continue to follow. Please call with any additional questions.
--- NOTE | 2018-06-01 13:28 | PDOC.PN ---
- Subjective Encounter Start Date: 06/01/18 Encounter Start Time: 13:28 - Objective Resuscitation Status: Resuscitation Status FULL:Full Resuscitation Vital Signs & Weight: Vital Signs (12 hours) Temp Pulse Resp BP Pulse Ox 06/01/18 08:02 98.0 F 71 20 163/75 H 98 06/01/18 08:00 98 Weight Admit Weight 159 lb Weight 159 lb I&O: 05/31/18 06/01/18 06/02/18 06:59 06:59 06:59 Intake Total 4460 2770 Output Total 700 300 Balance 3760 2470 Result Diagrams: 06/01/18 04:36 06/01/18 04:36 Additional Labs: Accuchecks 06/01/18 06/01/18 05/31/18 11:32 05:37 20:44 POC Glucose 137 H 102 125 H 05/31/18 16:46 POC Glucose 137 H Dx/Plan - Plan (1) UTI (urinary tract infection) Status: Acute Comment: on pip-august for Proteus and Morganella UTI, Morganella resistant to ceftriaxone. no fluroquinolones 2/2 amiodarone and ondansetron usage total 7 day course (2) Severe aortic stenosis Code(s): I35.0 - NONRHEUMATIC AORTIC (VALVE) STENOSIS Status: Chronic Comment: stable (3) DM type 2 (diabetes mellitus, type 2) Status: Chronic Qualifiers: Diabetes mellitus manager intermediate insulin use: with manager intermediate use Diabetes mellitus complication status: with kidney complications Diabetes mellitus complication detail: with chronic kidney disease Chronic kidney disease stage : stage 3 (moderate) Qualified Code(s): E11.22 - Type 2 diabetes mellitus with diabetic chronic kidney disease; N18.3 - Chronic kidney disease, stage 3 ( moderate); Z79.4 - superintendent terminal (current) use of insulin Comment: pt's home insulin on hold, no further episodes of hypoglycemia (4) Dyslipidemia Code(s): E78.5 - HYPERLIPIDEMIA, UNSPECIFIED Status: Chronic Comment: continue statin (5) GERD (gastroesophageal reflux disease) Code(s): K21.9 - GASTRO-ESOPHAGEAL REFLUX DISEASE WITHOUT ESOPHAGITIS Status: Chronic Qualifiers: Esophagitis presence: esophagitis presence not specified Qualified Code(s) : K21.9 - Gastro-esophageal reflux disease without esophagitis Comment: continue PPI apprec GI c/s continued poor PO intake pt is under the impression that she requires inpatient hospitalization in order to take her PPI and the other oral medications for her symptoms this raises the concern that she has potential home medication compliance issues (6) Hypertension Code(s): I10 - ESSENTIAL (PRIMARY) HYPERTENSION Status: Chronic Qualifiers: Hypertension type: essential hypertension Qualified Code(s): I10 - Essential (primary) hypertension Comment: titrate antihypertensives as needed carvedilol if continued hypertension (7) Hypothyroidism Code(s): E03.9 - HYPOTHYROIDISM, UNSPECIFIED Status: Chronic Qualifiers: Comment: on synthroid (8) CKD (chronic kidney disease) stage 4, GFR 15-29 ml/min Code(s): N18.4 - CHRONIC KIDNEY DISEASE, STAGE 4 (SEVERE) Status: Chronic Comment: Improving deconditioning likely secondary to a combination of chronic pain and refusal of PT/ OT and walking program d/w pt rehab which she declines stating she has completed 26 days in the past and did not feel that it helped d/w pt SNF which she also adamantly refuses because she has self pay assist at home it also appears that she has HH - will obtain HH records to get a better picture of the patient's home/ social situation and determine whether there are any other silent contributory factors leading to what appears, on the surface, to be idiosyncratic decision making Chronic pain on IV morphine while inpatient for chronic pain - will slowly downtitrate morphine from 1mg IV prn to 0.5 mg IV prn - will need to titrate off encourage use of gabapentin for neuropathic component lidocaine patch added pt also on anxiolytic Diet: as nadine activity: as nadine dvt ppx D/w bedside nsg, pt's KITTY Dex, and pt Greater than 30 min addressing pt care at bedside. Pt is poor skilled nursing prognosis and high risk for recurrent readmission
[2018-06-01 14:04] LABS: Troponin I Less than 0.010 ng/mL (< 0.028)
[2018-06-01] MEDS: Lorazepam 0.5 MG TAB PO SCH (22:25)
[2018-06-01] MEDS: Polyethylene Glycol 3350 17 GM Packet PO SCH (22:29)
[2018-06-01] MEDS: Atorvastatin Calcium 10 MG TAB PO SCH (22:47)
[2018-06-02] MEDS: Acetaminophen 500 MG TAB PO PRN ×2 (01:36→10:05)
[2018-06-02] MEDS: Ondansetron ODT 4 MG TAB PO SCH ×3 (01:36→17:23)
[2018-06-02] MEDS: Piperacillin/Tazobactam 2.25 GM in Sodium Chloride 0.9% 100 ML IVPB SCH ×2 (03:20→08:53)
[2018-06-02] MEDS: Nystatin Powder 15 GM BOT TOP SCH ×4 (03:49→20:58)
[2018-06-02] MEDS: Levothyroxine Sodium 25 MCG TAB PO SCH (05:58)
[2018-06-02] MEDS: Levothyroxine Sodium 112 MCG TAB PO SCH (05:59)
[2018-06-02] MEDS: Lorazepam 0.5 MG TAB PO PRN ×2 (08:09→14:37)
[2018-06-02] MEDS: Lidocaine 5% Patch TD SCH (08:10)
[2018-06-02] MEDS: Heparin 5,000 UNITS/ML VIAL SC SCH ×3 (08:10→21:07)
[2018-06-02] MEDS: predniSONE 5 MG TAB PO SCH (08:44)
[2018-06-02] MEDS: Potassium Chloride 10 MEQ TAB PO SCH ×3 (08:44→17:23)
[2018-06-02] MEDS: Lubiprostone 24 MCG CAP PO SCH ×2 (08:45→21:49)
[2018-06-02] MEDS: Gabapentin 300 MG CAP PO SCH ×2 (08:46→21:09)
[2018-06-02] MEDS: Simethicone Chewable 80 MG TAB PO SCH ×3 (08:49→20:40)
[2018-06-02] MEDS: Multivit, Therapeutic 1 TAB PO SCH (08:49)
[2018-06-02] MEDS: Milk Of Magnesia 30 ML UDCUP PO SCH (08:50)
[2018-06-02] MEDS: Torsemide 20 MG TAB PO SCH ×2 (08:52→20:41)
[2018-06-02] MEDS: Dextrose 5 %-0.45 % NaCl 1,000 ML IV SCH (08:59)
[2018-06-02] MEDS: traMADol HCl 50 MG TAB PO PRN (10:05)
--- NOTE | 2018-06-02 13:24 | PRG ---
DATE OF SERVICE: 06/02/2018 REASON FOR CONSULTATION: Nausea, vomiting, abdominal pain, and constipation. SUBJECTIVE: The patient states that this morning she was able to keep down some of her breakfast, bu t did experience nausea and mild regurgitation of her food approximately 20-30 minutes after ingestio n (however, this was not observed by nursing staff). She also states that her abdominal pain has imp roved with having a liquid consistency bowel movement yesterday, having approximately 2-3 bowel movem ents during the last 24 hours. Currently, she denies any fevers, chills, diarrhea, dysphagia or odyn ophagia. OBJECTIVE: VITAL SIGNS: Temperature 98.2, pulse 66, blood pressure 151/63, respiratory rate 18, satting 99% on room air. GENERAL: The patient was lying in bed in no acute distress, alert and oriented x4. Significant kyph osis of the upper thoracic and cervical spine noted. CARDIOVASCULAR: Regular rate and rhythm. 4/6 systolic murmur best heard at the right upper sternal border that was high pitched in character. RESPIRATORY: Clear to auscultation bilaterally. ABDOMEN: Normoactive bowel sounds. Mild tenderness to palpation in the epigastric region. EXTREMITIES: No cyanosis, clubbing or edema. LABORATORY DATA: No current studies are available for review. IMAGING DATA: No current GI imaging is available for review. 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 Abdominal pain. The patient has had multiple hospitalizations within the last 6-12 months for increased right upper q uadrant/midepigastric abdominal pain characterized as a cramping type sensation that is constant and radiates to the periumbilical region. She does carry a diagnosis of chronic pain syndrome and has be en taking increased amounts of narcotics for many years which could be theoretically contributing to her abdominal pain. 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 With the increase in frequency of her bowel movements, she has had a mild improvement in her abdom inal pain also when incredence towards possible constipation contributing to it. RECOMMENDATIONS: 1. We would continue lubiprostone 24 mcg b.i.d. as well as MiraLax daily as part of her bowel regime n with chronic opiate use. 2. Continue lower fiber diet given the possibility of functional gastroparesis. 3. Continue to minimize any narcotic administration. 4. Naloxegol 12.5 mg daily. 5. Would discontinue magnesium hydroxide as this could potentially generate diarrhea and/or abdomina l bloating/pain. Dysphagia. The patient is presenting with a chronic history of nausea, vomiting, and dysphagia characterized as a sensation of food getting stuck around the mid chest and occurring with both solid and liquid foods . Upper endoscopy performed on 12/09/2017 showed a relatively normal esophagus with no evidence of s tricture, stenosis, mass lesions or ulcerations. The esophagus was empirically dilated to 18 mm, but did not have any significant change in her symptoms with this particular intervention. In the past with regular PPI administration she has had a significant reduction in her dysphagia as well as the n ausea and vomiting, making acid reflux more likely the causative agent for her nausea, vomiting, and dysphagia. With her chronic opiate use, gastroparesis could also potentially contribute to the curre nt constellation of symptoms. RECOMMENDATIONS: 1. Continue pantoprazole 40 mg in the morning. 2. Would maintain standard antireflux precautions including maintaining an upright posture for appro ximately 2-3 hours after ingestion of any food/liquid. 3. Continue scheduled antiemetics for nausea control with promethazine as needed for breakthrough sy mptoms. We will continue to follow. Please call with any additional questions.
[2018-06-02] MEDS: Promethazine HCl 25 MG/ML VIAL IM/IV PRN ×2 (14:41→21:09)
--- NOTE | 2018-06-02 14:59 | PDOC.PN ---
- Subjective Encounter Start Date: 06/02/18 Encounter Start Time: 07:00 Pt seen for followup re: UTI. Denies chest pain. Nausea+, vomiting+. - Objective Resuscitation Status: Resuscitation Status FULL:Full Resuscitation MAR Reviewed: Yes Vital Signs & Weight: Vital Signs (12 hours) Temp Pulse Resp BP Pulse Ox 06/02/18 08:00 98.2 F 66 18 151/63 H 99 Weight Admit Weight 159 lb Weight 159 lb I&O: 06/01/18 06/02/18 06/03/18 06:59 06:59 06:59 Intake Total 2770 2200 Output Total 300 Balance 2470 2200 Result Diagrams: 06/01/18 04:36 06/01/18 04:36 Additional Labs: Accuchecks 06/02/18 06/02/18 06/01/18 11:17 07:24 22:23 POC Glucose 123 H 105 119 H 06/01/18 15:58 POC Glucose 146 H EKG Reviewed by me: Yes (Tele: NSR) Phys Exam - Physical Examination Constitutional: NAD HEENT: moist MMs Neck: supple Respiratory: clear to auscultation bilateral Cardiovascular: RRR Gastrointestinal: soft Neurological: moves all 4 limbs Psychiatric: normal affect Dx/Plan (1) UTI (urinary tract infection) Status: Acute Comment: discontinue antibiotics and observe (2) Nausea and vomiting Code(s): R11.2 - NAUSEA WITH VOMITING, UNSPECIFIED Status: Acute Comment: discontinue antibiotics. Appreciate GI service input. (3) Severe aortic stenosis Code(s): I35.0 - NONRHEUMATIC AORTIC (VALVE) STENOSIS Status: Chronic Comment: stable (4) DM type 2 (diabetes mellitus, type 2) Status: Chronic Qualifiers: Diabetes mellitus longwall foreman insulin use: with longwall foreman use Diabetes mellitus complication status: with kidney complications Diabetes mellitus complication detail: with chronic kidney disease Chronic kidney disease stage : stage 3 (moderate) Qualified Code(s): E11.22 - Type 2 diabetes mellitus with diabetic chronic kidney disease; N18.3 - Chronic kidney disease, stage 3 ( moderate); Z79.4 - exterminator termite (current) use of insulin Comment: no further episodes of hypoglycemia (5) Dyslipidemia Code(s): E78.5 - HYPERLIPIDEMIA, UNSPECIFIED Status: Chronic Comment: on statin (6) GERD (gastroesophageal reflux disease) Code(s): K21.9 - GASTRO-ESOPHAGEAL REFLUX DISEASE WITHOUT ESOPHAGITIS Status: Chronic Qualifiers: Esophagitis presence: esophagitis presence not specified Qualified Code(s) : K21.9 - Gastro-esophageal reflux disease without esophagitis Comment: continue PPI (7) Hypertension Code(s): I10 - ESSENTIAL (PRIMARY) HYPERTENSION Status: Chronic Qualifiers: Hypertension type: essential hypertension Qualified Code(s): I10 - Essential (primary) hypertension Comment: titrate antihypertensives as needed (8) Hypothyroidism Code(s): E03.9 - HYPOTHYROIDISM, UNSPECIFIED Status: Chronic Qualifiers: Comment: continue synthroid (9) CKD (chronic kidney disease) stage 4, GFR 15-29 ml/min Code(s): N18.4 - CHRONIC KIDNEY DISEASE, STAGE 4 (SEVERE) Status: Chronic Comment: Improving (10) Chronic diastolic heart failure Code(s): I50.32 - CHRONIC DIASTOLIC (CONGESTIVE) HEART FAILURE Status: Chronic Comment: stable - Plan * . Review of Systems - Review of Systems Cardiovascular: negative: chest pain, palpitations, orthopnea, paroxysmal nocturnal dyspnea, edema, light headedness Gastrointestinal: Nausea, Vomiting. negative: Abdominal Pain, Diarrhea, Constipation, Melena, Hematochezia - Medications/Allergies Allergies/Adverse Reactions: Allergies Allergy/AdvReac Type Severity Reaction Status Date / Time hydrocodone [From [place]] Allergy Verified 05/26/18 07:33 Medications: Current Medications Acetaminophen (Tylenol) 500 mg PO Q6H PRN PRN Reason: Mild Pain (1-3) Acetaminophen (Tylenol) 1,000 mg PO Q6H PRN PRN Reason: Headache/Fever or Pain MILD Last Admin: 06/02/18 10:05 Dose: 1,000 mg Aspirin (Aspirin Chewable) 81 mg PO DAILY [facility] Last Admin: 06/02/18 08:47 Dose: 81 mg Atorvastatin Calcium (Lipitor) 10 mg PO HS [facility] Last Admin: 06/01/18 22:47 Dose: Not Given Cholecalciferol (Vitamin D3) 5,000 units PO DAILY [facility] Last Admin: 06/02/18 08:47 Dose: 5,000 units Dextrose/Water (Dextrose 50%) 25 gm SLOW IVP PRN PRN PRN Reason: Hypoglycemia Gabapentin (Neurontin) 600 mg PO BID [facility] Last Admin: 06/02/18 08:46 Dose: 600 mg Glucagon (Glucagon) 1 mg IM PRN PRN PRN Reason: Hypoglycemia Heparin Sodium (Porcine) (Heparin) 5,000 units SC TID [facility] Last Admin: 06/02/18 08:10 Dose: 5,000 units Hydroxyzine HCl (Atarax) 25 mg PO Q6H PRN PRN Reason: Itching Dextrose/Water (D5w) 1,000 mls @ 0 mls/hr IV .Q0M PRN PRN Reason: Hypoglycemia Dextrose/Sodium Chloride (D5 1/2 Ns) 1,000 mls @ 60 mls/hr IV .[id number] [facility] Last Admin: 06/02/18 08:59 Dose: 1,000 mls Insulin Human Lispro (Humalog) 0 units SC .MILD SLIDING SCALE PRN PRN Reason: Mild Correctional Scale Last Admin: 05/27/18 06:33 Dose: 5 unit Levothyroxine Sodium (Synthroid) 112 mcg PO 0600 [facility] Last Admin: 06/02/18 05:59 Dose: 112 mcg Levothyroxine Sodium (Synthroid) 25 mcg PO 0600 [facility] Last Admin: 06/02/18 05:58 Dose: 25 mcg Lidocaine (Lidoderm 5% Patch) 1 patch TD DAILY [facility] Last Admin: 06/02/18 08:10 Dose: 1 patch Loperamide HCl (Imodium) 2 mg PO PRN PRN PRN Reason: Diarrhea/Loose Stools Last Admin: 05/29/18 01:36 Dose: 2 mg Lorazepam (Ativan) 0.5 mg PO HS [facility] Last Admin: 06/01/18 22:25 Dose: 0.5 mg Lorazepam (Ativan) 0.5 mg PO Q6H PRN PRN Reason: Anxiety Last Admin: 06/02/18 08:09 Dose: 0.5 mg Lubiprostone (Amitiza) 24 mcg PO BID [facility] Last Admin: 06/02/18 08:45 Dose: 24 mcg Miscellaneous Medication (Movantik) 12.5 mg PO DAILY-[facility] Last Admin: 06/02/18 08:42 Dose: 12.5 mg Miscellaneous Medication (Lidocaine Patch Removal) 1 each TOP HS [facility] Morphine Sulfate (Morphine) 0.5 mg SLOW IVP Q6H PRN PRN Reason: Severe Pain (7-10) Last Admin: 06/02/18 08:07 Dose: 0.5 mg Multivitamins (Theragran) 1 tab PO DAILY [facility] Last Admin: 06/02/18 08:49 Dose: 1 tab Nystatin (Mycostatin Powder) 0 gm TOP TID [facility] Last Admin: 06/02/18 08:50 Dose: 1 appful Ondansetron HCl (Zofran Odt) 4 mg PO 0100,0900,1700 [facility] Last Admin: 06/02/18 08:09 Dose: 4 mg Pantoprazole Sodium (Protonix) 40 mg PO QAM-[facility] Last Admin: 06/02/18 08:09 Dose: 40 mg Polyethylene Glycol (Miralax) 17 gm PO HS [facility] Last Admin: 06/01/18 22:29 Dose: 17 gm Potassium Chloride (Klor-Con 10) 10 meq PO TID-[facility] Last Admin: 06/02/18 13:11 Dose: 10 meq Prednisone (Prednisone) 10 mg PO QA-[facility] Last Admin: 06/02/18 08:44 Dose: 10 mg Promethazine HCl (Phenergan) 25 mg IM/IV Q8H PRN PRN Reason: Nausea/Vomiting Simethicone (Mylicon Chewable) 80 mg PO TID [facility] Last Admin: 06/02/18 08:49 Dose: 80 mg Sodium Chloride (Flush - Normal Saline) 10 ml IVF Q12HR [facility] Last Admin: 06/02/18 10:06 Dose: Not Given Sodium Chloride (Flush - Normal Saline) 10 ml IVF PRN PRN PRN Reason: Saline Flush Last Admin: 05/29/18 04:11 Dose: 10 ml Torsemide (Demadex) 40 mg PO BID [facility] Last Admin: 06/02/18 08:52 Dose: 40 mg Tramadol HCl (Ultram) 50 mg PO Q6H PRN PRN Reason: Moderate Pain (4-6) Last Admin: 06/01/18 22:25 Dose: 50 mg Tramadol HCl (Ultram) 100 mg PO Q6H PRN PRN Reason: PAIN-MODERATE 1ST LINE Last Admin: 06/02/18 10:05 Dose: 100 mg
[2018-06-02] MEDS: Atorvastatin Calcium 10 MG TAB PO SCH (20:40)
[2018-06-02] MEDS: Polyethylene Glycol 3350 17 GM Packet PO SCH (21:05)
[2018-06-02] MEDS: Lidocaine Patch Removal TOP SCH (21:07)
[2018-06-02] MEDS: Lorazepam 0.5 MG TAB PO SCH (21:19)
[2018-06-03] MEDS: Levothyroxine Sodium 112 MCG TAB PO SCH (07:30)
[2018-06-03] MEDS: Levothyroxine Sodium 25 MCG TAB PO SCH (07:30)
[2018-06-03] MEDS: Potassium Chloride 10 MEQ TAB PO SCH ×3 (08:00→18:04)
[2018-06-03] MEDS: Ondansetron ODT 4 MG TAB PO SCH ×3 (09:00→19:44)
[2018-06-03] MEDS: Torsemide 20 MG TAB PO SCH ×2 (09:45→21:43)
[2018-06-03] MEDS: Simethicone Chewable 80 MG TAB PO SCH ×3 (09:45→21:43)
[2018-06-03] MEDS: Lubiprostone 24 MCG CAP PO SCH ×2 (09:45→21:43)
[2018-06-03] MEDS: Lidocaine 5% Patch TD SCH (09:45)
[2018-06-03] MEDS: Heparin 5,000 UNITS/ML VIAL SC SCH ×3 (09:45→21:48)
[2018-06-03] MEDS: Nystatin Powder 15 GM BOT TOP SCH ×3 (09:45→21:43)
[2018-06-03] MEDS: Multivit, Therapeutic 1 TAB PO SCH (09:45)
[2018-06-03] MEDS: predniSONE 5 MG TAB PO SCH (09:45)
[2018-06-03] MEDS: Gabapentin 300 MG CAP PO SCH ×2 (09:45→21:46)
[2018-06-03] MEDS: traMADol HCl 50 MG TAB PO PRN ×2 (11:21→19:38)
[2018-06-03] MEDS: Acetaminophen 500 MG TAB PO PRN ×2 (11:21→23:20)
--- NOTE | 2018-06-03 14:45 | PDOC.PN ---
- Subjective Encounter Start Date: 06/03/18 Encounter Start Time: 07:40 Pt seen for followup re: UTI. Feels better. Tolerating some diet. Less nauseous. - Objective Resuscitation Status: Resuscitation Status FULL:Full Resuscitation MAR Reviewed: Yes Vital Signs & Weight: Vital Signs (12 hours) Temp Pulse Resp BP Pulse Ox 06/03/18 08:00 97.9 F 77 18 147/64 H 99 Weight Admit Weight 159 lb Weight 159 lb I&O: 06/02/18 06/03/18 06/04/18 06:59 06:59 06:59 Intake Total 2200 940 Balance 2200 940 Result Diagrams: 06/01/18 04:36 06/01/18 04:36 Additional Labs: Accuchecks 06/02/18 06/02/18 20:55 16:38 POC Glucose 159 H 186 H Labs reviewed by me Phys Exam - Physical Examination Constitutional: NAD HEENT: moist MMs Neck: supple Respiratory: clear to auscultation bilateral Cardiovascular: RRR Gastrointestinal: soft Neurological: moves all 4 limbs Psychiatric: normal affect Dx/Plan (1) UTI (urinary tract infection) Status: Acute Comment: Treated for Proteus and Morganella UTI, off of antibiotics now (2) Nausea and vomiting Code(s): R11.2 - NAUSEA WITH VOMITING, UNSPECIFIED Status: Acute Comment: Improving (3) Severe aortic stenosis Code(s): I35.0 - NONRHEUMATIC AORTIC (VALVE) STENOSIS Status: Chronic Comment: stable (4) DM type 2 (diabetes mellitus, type 2) Status: Chronic Qualifiers: Diabetes mellitus fpc insulin use: with commercial energy auditor use Diabetes mellitus complication status: with kidney complications Diabetes mellitus complication detail: with chronic kidney disease Chronic kidney disease stage : stage 3 (moderate) Qualified Code(s): E11.22 - Type 2 diabetes mellitus with diabetic chronic kidney disease; N18.3 - Chronic kidney disease, stage 3 ( moderate); Z79.4 - detention (current) use of insulin Comment: no further episodes of hypoglycemia (5) Dyslipidemia Code(s): E78.5 - HYPERLIPIDEMIA, UNSPECIFIED Status: Chronic Comment: continue statin (6) GERD (gastroesophageal reflux disease) Code(s): K21.9 - GASTRO-ESOPHAGEAL REFLUX DISEASE WITHOUT ESOPHAGITIS Status: Chronic Qualifiers: Esophagitis presence: esophagitis presence not specified Qualified Code(s) : K21.9 - Gastro-esophageal reflux disease without esophagitis Comment: on PPI (7) Hypertension Code(s): I10 - ESSENTIAL (PRIMARY) HYPERTENSION Status: Chronic Qualifiers: Hypertension type: essential hypertension Qualified Code(s): I10 - Essential (primary) hypertension Comment: titrate antihypertensives as needed (8) Hypothyroidism Code(s): E03.9 - HYPOTHYROIDISM, UNSPECIFIED Status: Chronic Qualifiers: Comment: continue synthroid (9) CKD (chronic kidney disease) stage 4, GFR 15-29 ml/min Code(s): N18.4 - CHRONIC KIDNEY DISEASE, STAGE 4 (SEVERE) Status: Chronic Comment: Improving - Plan * . Review of Systems - Review of Systems Cardiovascular: negative: chest pain, palpitations, orthopnea, paroxysmal nocturnal dyspnea, edema, light headedness Gastrointestinal: Nausea, Vomiting. negative: Abdominal Pain, Diarrhea, Constipation, Melena, Hematochezia - Medications/Allergies Allergies/Adverse Reactions: Allergies Allergy/AdvReac Type Severity Reaction Status Date / Time hydrocodone [From [facility]] Allergy Verified 05/26/18 07:33 Medications: Current Medications Acetaminophen (Tylenol) 500 mg PO Q6H PRN PRN Reason: Mild Pain (1-3) Acetaminophen (Tylenol) 1,000 mg PO Q6H PRN PRN Reason: Headache/Fever or Pain MILD Last Admin: 06/03/18 11:21 Dose: 1,000 mg Aspirin (Aspirin Chewable) 81 mg PO DAILY [facility] Last Admin: 06/03/18 09:45 Dose: 81 mg Atorvastatin Calcium (Lipitor) 10 mg PO HS [facility] Last Admin: 06/02/18 20:40 Dose: Not Given Cholecalciferol (Vitamin D3) 5,000 units PO DAILY [facility] Last Admin: 06/03/18 09:45 Dose: 5,000 units Dextrose/Water (Dextrose 50%) 25 gm SLOW IVP PRN PRN PRN Reason: Hypoglycemia Gabapentin (Neurontin) 600 mg PO BID [facility] Last Admin: 06/03/18 09:45 Dose: 600 mg Glucagon (Glucagon) 1 mg IM PRN PRN PRN Reason: Hypoglycemia Heparin Sodium (Porcine) (Heparin) 5,000 units SC TID [facility] Last Admin: 06/03/18 09:45 Dose: 5,000 units Hydroxyzine HCl (Atarax) 25 mg PO Q6H PRN PRN Reason: Itching Dextrose/Water (D5w) 1,000 mls @ 0 mls/hr IV .Q0M PRN PRN Reason: Hypoglycemia Dextrose/Sodium Chloride (D5 1/2 Ns) 1,000 mls @ 60 mls/hr IV .[id number] [facility] Last Admin: 06/02/18 08:59 Dose: 1,000 mls Insulin Human Lispro (Humalog) 0 units SC .MILD SLIDING SCALE PRN PRN Reason: Mild Correctional Scale Last Admin: 05/27/18 06:33 Dose: 5 unit Levothyroxine Sodium (Synthroid) 112 mcg PO 0600 [facility] Last Admin: 06/03/18 07:30 Dose: 112 mcg Levothyroxine Sodium (Synthroid) 25 mcg PO 0600 [facility] Last Admin: 06/03/18 07:30 Dose: 25 mcg Lidocaine (Lidoderm 5% Patch) 1 patch TD DAILY [facility] Last Admin: 06/03/18 09:45 Dose: 1 patch Loperamide HCl (Imodium) 2 mg PO PRN PRN PRN Reason: Diarrhea/Loose Stools Last Admin: 05/29/18 01:36 Dose: 2 mg Lorazepam (Ativan) 0.5 mg PO HS [facility] Last Admin: 06/02/18 21:19 Dose: 0.5 mg Lorazepam (Ativan) 0.5 mg PO Q6H PRN PRN Reason: Anxiety Last Admin: 06/02/18 14:37 Dose: 0.5 mg Lubiprostone (Amitiza) 24 mcg PO BID [facility] Last Admin: 06/03/18 09:45 Dose: 24 mcg Miscellaneous Medication (Movantik) 12.5 mg PO DAILY[facility] Last Admin: 06/03/18 07:30 Dose: 12.5 mg Miscellaneous Medication (Lidocaine Patch Removal) 1 each TOP HS [facility] Last Admin: 06/02/18 21:07 Dose: 1 each Morphine Sulfate (Morphine) 0.5 mg SLOW IVP Q6H PRN PRN Reason: Severe Pain (7-10) Last Admin: 06/03/18 09:30 Dose: 0.5 mg Multivitamins (Theragran) 1 tab PO DAILY [facility] Last Admin: 06/03/18 09:45 Dose: 1 tab Nystatin (Mycostatin Powder) 0 gm TOP TID [facility] Last Admin: 06/03/18 09:45 Dose: 1 appful Ondansetron HCl (Zofran Odt) 4 mg PO 0100,0900,1700 [facility] Last Admin: 06/03/18 09:00 Dose: 4 mg Pantoprazole Sodium (Protonix) 40 mg PO QAM-[facility] Last Admin: 06/03/18 08:00 Dose: 40 mg Polyethylene Glycol (Miralax) 17 gm PO HS [facility] Last Admin: 06/02/18 21:05 Dose: 17 gm Potassium Chloride (Klor-Con 10) 10 meq PO TID-[facility] Last Admin: 06/03/18 11:21 Dose: 10 meq Prednisone (Prednisone) 10 mg PO QAM-[facility] Last Admin: 06/03/18 09:45 Dose: 10 mg Promethazine HCl (Phenergan) 25 mg IM/IV Q8H PRN PRN Reason: Nausea/Vomiting Last Admin: 06/02/18 21:09 Dose: 12.5 mg Simethicone (Mylicon Chewable) 80 mg PO TID [facility] Last Admin: 06/03/18 09:45 Dose: 80 mg Sodium Chloride (Flush - Normal Saline) 10 ml IVF Q12HR [facility] Last Admin: 06/03/18 09:45 Dose: 10 ml Sodium Chloride (Flush - Normal Saline) 10 ml IVF PRN PRN PRN Reason: Saline Flush Last Admin: 05/29/18 04:11 Dose: 10 ml Torsemide (Demadex) 40 mg PO BID [facility] Last Admin: 06/03/18 09:45 Dose: 40 mg Tramadol HCl (Ultram) 50 mg PO Q6H PRN PRN Reason: Moderate Pain (4-6) Last Admin: 06/01/18 22:25 Dose: 50 mg Tramadol HCl (Ultram) 100 mg PO Q6H PRN PRN Reason: PAIN-MODERATE 1ST LINE Last Admin: 06/03/18 11:21 Dose: 100 mg
[2018-06-03] MEDS: Promethazine HCl 25 MG/ML VIAL IM/IV PRN (14:51)
[2018-06-03] MEDS: Lorazepam 0.5 MG TAB PO PRN (15:41)
--- NOTE | 2018-06-03 17:18 | PRG ---
DATE OF SERVICE: 06/03/2018 REASON FOR CONSULTATION: Nausea, vomiting, abdominal pain, and constipation. SUBJECTIVE: Yesterday, the patient was able to have approximately 3-4 semi-solid bowel movements wit hout any difficulty with defecation. She denies any occurrence of hematemesis or melena with any of these stooling episodes. Yesterday she was also able to eat a sandwich and keep it down without any further nausea and vomiting. This morning, she does have some residual nausea and retching per [facility] staff, but at the time of this interview did not have any episodes recently. She also states that her abdominal pain has improved when compared to admission, but has been relatively unchanged over t he last 24 hours. Currently, she denies any fevers, chills, dysphagia, or odynophagia. OBJECTIVE: VITAL SIGNS: Temperature 97.9, pulse 77, blood pressure 147/64, respiratory rate 18, satting 99% on room air. GENERAL: The patient is lying in bed in no acute distress. She is alert and oriented x4. CARDIOVASCULAR: Regular rate and rhythm, 4/6 systolic murmur is best heard at the right upper sterna l border with high pitched character. RESPIRATORY: Clear to auscultation bilaterally. ABDOMEN: Normoactive bowel sounds. Mild tenderness to palpation in the epigastric region. EXTREMITIES: No cyanosis, clubbing or edema. LABORATORY DATA: No current studies available for review. IMAGING DATA: No current GI imaging is available for review. 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 Abdominal pain. The patient has multiple hospitalizations within the last 6-12 months for increased right upper quadrant/midepigastric abdominal pain. She does also carry a diagnosis of chronic pain s yndrome and had been taking increased amounts of narcotics for many years which could be theoreticall y contributing to her abdominal pain with chronic narcotic use, she could result in functional gastro paresis and/or narcotic bowel syndrome that could further contribute to her abdominal pain. RECOMMENDATIONS: 1. Continue lubiprostone 24 mcg b.i.d. as well as MiraLax daily as part of her bowel regimen with ch ronic opiate use. If she continues to have frequent semi-solid or liquid bowel movements, I would co nsider discontinuing the MiraLax daily. 2. Continue lower fiber diet given the possibility of functional gastroparesis. 3. Continue naloxegol 12.5 mg daily. 4. Continue to minimize any narcotic administration. Nausea and vomiting/dysphagia. The patient is also presenting with a chronic history of nausea, vomi ting, and dysphagia that continues to be evident during this hospitalization; however, with scheduled antiemetics and the use of promethazine as needed, she has been having slowly improving symptoms ove r the last 24-48 hours. More recently, she did have an upper endoscopy performed on 12/09/2017 which showed a relatively normal esophagus without any evidence of stricture, stenosis, mass lesions or ul cerations with the esophagus empirically dilated to 18 mm with no significant change in her symptoms. With her chronic opiate use, functional gastroparesis could also contribute to her current constell ation of symptoms of nausea and vomiting. RECOMMENDATIONS: 1. Continue pantoprazole 40 mg in the morning. 2. We would continue standard antireflux precautions. 3. Continue scheduled antiemetics for nausea control with promethazine as needed for breakthrough sy mptoms. 4. Encourage oral intake as much as possible. We will continue to follow. Please call with any additional questions.
[2018-06-03] MEDS: Polyethylene Glycol 3350 17 GM Packet PO SCH (21:42)
[2018-06-03] MEDS: Atorvastatin Calcium 10 MG TAB PO SCH (21:42)
[2018-06-03] MEDS: Lorazepam 0.5 MG TAB PO SCH (21:42)
[2018-06-03] MEDS: Lidocaine Patch Removal TOP SCH (21:44)
[2018-06-03] MEDS: Dextrose 5 %-0.45 % NaCl 1,000 ML IV SCH (21:58)
[2018-06-04] MEDS: Promethazine HCl 25 MG/ML VIAL IM/IV PRN ×2 (00:44→19:37)
[2018-06-04] MEDS: Ondansetron ODT 4 MG TAB PO SCH ×3 (01:01→17:49)
[2018-06-04] MEDS: traMADol HCl 50 MG TAB PO PRN ×3 (01:36→15:49)
[2018-06-04] MEDS: Lorazepam 0.5 MG TAB PO PRN ×3 (03:45→18:28)
[2018-06-04] MEDS: Levothyroxine Sodium 25 MCG TAB PO SCH (05:32)
[2018-06-04] MEDS: Levothyroxine Sodium 112 MCG TAB PO SCH (05:32)
[2018-06-04] MEDS: Acetaminophen 500 MG TAB PO PRN ×3 (05:32→18:28)
[2018-06-04] MEDS: Dextrose 5 %-0.45 % NaCl 1,000 ML IV SCH ×2 (07:13→15:26)
[2018-06-04] MEDS: Potassium Chloride 10 MEQ TAB PO SCH ×3 (07:42→17:49)
[2018-06-04] MEDS: predniSONE 5 MG TAB PO SCH (08:44)
[2018-06-04] MEDS: Multivit, Therapeutic 1 TAB PO SCH (08:44)
[2018-06-04] MEDS: Lubiprostone 24 MCG CAP PO SCH ×2 (08:44→20:29)
[2018-06-04] MEDS: Simethicone Chewable 80 MG TAB PO SCH ×3 (08:44→20:29)
[2018-06-04] MEDS: Heparin 5,000 UNITS/ML VIAL SC SCH ×3 (08:45→20:30)
[2018-06-04] MEDS: Lidocaine 5% Patch TD SCH (08:45)
[2018-06-04] MEDS: Nystatin Powder 15 GM BOT TOP SCH ×3 (08:46→20:32)
[2018-06-04] MEDS: Torsemide 20 MG TAB PO SCH ×2 (08:52→20:30)
--- NOTE | 2018-06-04 14:10 | PDOC.PN ---
- Subjective Encounter Start Date: 06/04/18 Encounter Start Time: 07:00 Pt seen for followup re: nausea and vomiting. Tolerating some diet. - Objective Resuscitation Status: Resuscitation Status FULL:Full Resuscitation MAR Reviewed: Yes Vital Signs & Weight: Vital Signs (12 hours) Temp Pulse Resp BP Pulse Ox 06/04/18 08:00 97.6 F 84 16 140/63 98 Weight Admit Weight 159 lb Weight 159 lb I&O: 06/03/18 06/04/18 06/05/18 06:59 06:59 06:59 Intake Total 940 Balance 940 Result Diagrams: 06/01/18 04:36 06/01/18 04:36 Additional Labs: Accuchecks 06/04/18 06/04/18 06/03/18 11:48 07:18 21:40 POC Glucose 180 H 205 H 213 H 06/03/18 06/03/18 06/03/18 17:09 11:48 06:19 POC Glucose 243 H 118 H 198 H Labs reviewed by me Phys Exam - Physical Examination Obese HEENT: moist MMs Neck: supple Respiratory: clear to auscultation bilateral Cardiovascular: RRR Gastrointestinal: soft Neurological: moves all 4 limbs Psychiatric: normal affect Dx/Plan (1) Nausea and vomiting Code(s): R11.2 - NAUSEA WITH VOMITING, UNSPECIFIED Status: Acute Comment: Improving (2) DM type 2 (diabetes mellitus, type 2) Status: Chronic Qualifiers: Diabetes mellitus correction insulin 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 Diabetes mellitus complication status: with kidney complications Diabetes mellitus complication detail: with chronic kidney disease Chronic kidney disease stage : stage 3 (moderate) Qualified Code(s): E11.22 - Type 2 diabetes mellitus with diabetic chronic kidney disease; N18.3 - Chronic kidney disease, stage 3 ( moderate); Z79.4 - oysterman (current) use of insulin Comment: change to moderate sliding scale, add low dose lantus insulin (3) Severe aortic stenosis Code(s): I35.0 - NONRHEUMATIC AORTIC (VALVE) STENOSIS Status: Chronic Comment: nil acute (4) Dyslipidemia Code(s): E78.5 - HYPERLIPIDEMIA, UNSPECIFIED Status: Chronic Comment: continue statin (5) GERD (gastroesophageal reflux disease) Code(s): K21.9 - GASTRO-ESOPHAGEAL REFLUX DISEASE WITHOUT ESOPHAGITIS Status: Chronic Qualifiers: Esophagitis presence: esophagitis presence not specified Qualified Code(s) : K21.9 - Gastro-esophageal reflux disease without esophagitis Comment: on PPI (6) Hypertension Code(s): I10 - ESSENTIAL (PRIMARY) HYPERTENSION Status: Chronic Qualifiers: Hypertension type: essential hypertension Qualified Code(s): I10 - Essential (primary) hypertension Comment: controlled (7) Hypothyroidism Code(s): E03.9 - HYPOTHYROIDISM, UNSPECIFIED Status: Chronic Qualifiers: Comment: on synthroid (8) CKD (chronic kidney disease) stage 4, GFR 15-29 ml/min Code(s): N18.4 - CHRONIC KIDNEY DISEASE, STAGE 4 (SEVERE) Status: Chronic Comment: Improving (9) UTI (urinary tract infection) Status: Resolved - Plan * . Review of Systems - Review of Systems Respiratory: negative: Cough, Shortness of Breath, SOB with Excertion, Pleuritic Pain, Sputum, Wheezing Cardiovascular: negative: chest pain, palpitations, orthopnea, paroxysmal nocturnal dyspnea, edema, light headedness Gastrointestinal: Nausea - Medications/Allergies Allergies/Adverse Reactions: Allergies Allergy/AdvReac Type Severity Reaction Status Date / Time hydrocodone [From [place]] Allergy Verified 05/26/18 07:33 Medications: Current Medications Acetaminophen (Tylenol) 500 mg PO Q6H PRN PRN Reason: Mild Pain (1-3) Acetaminophen (Tylenol) 1,000 mg PO Q6H PRN PRN Reason: Headache/Fever or Pain MILD Last Admin: 06/04/18 12:19 Dose: 1,000 mg Aspirin (Aspirin Chewable) 81 mg PO DAILY [facility] Last Admin: 06/04/18 08:44 Dose: 81 mg Atorvastatin Calcium (Lipitor) 10 mg PO HS [facility] Last Admin: 06/03/18 21:42 Dose: 10 mg Cholecalciferol (Vitamin D3) 5,000 units PO DAILY [facility] Last Admin: 06/03/18 09:45 Dose: 5,000 units Dextrose/Water (Dextrose 50%) 25 gm SLOW IVP PRN PRN PRN Reason: Hypoglycemia Gabapentin (Neurontin) 600 mg PO BID [facility] Last Admin: 06/03/18 21:46 Dose: 600 mg Glucagon (Glucagon) 1 mg IM PRN PRN PRN Reason: Hypoglycemia Heparin Sodium (Porcine) (Heparin) 5,000 units SC TID [facility] Last Admin: 06/04/18 08:45 Dose: 5,000 units Hydroxyzine HCl (Atarax) 25 mg PO Q6H PRN PRN Reason: Itching Dextrose/Water (D5w) 1,000 mls @ 0 mls/hr IV .Q0M PRN PRN Reason: Hypoglycemia Dextrose/Sodium Chloride (D5 1/2 Ns) 1,000 mls @ 60 mls/hr IV .[id number] [facility] Last Admin: 06/04/18 07:13 Dose: 1,000 mls Insulin Human Lispro (Humalog) 0 units SC .MILD SLIDING SCALE PRN PRN Reason: Mild Correctional Scale Last Admin: 05/27/18 06:33 Dose: 5 unit Levothyroxine Sodium (Synthroid) 112 mcg PO 0600 [facility] Last Admin: 06/04/18 05:32 Dose: 112 mcg Levothyroxine Sodium (Synthroid) 25 mcg PO 0600 [facility] Last Admin: 06/04/18 05:32 Dose: 25 mcg Lidocaine (Lidoderm 5% Patch) 1 patch TD DAILY [facility] Last Admin: 06/04/18 08:45 Dose: 1 patch Loperamide HCl (Imodium) 2 mg PO PRN PRN PRN Reason: Diarrhea/Loose Stools Last Admin: 05/29/18 01:36 Dose: 2 mg Lorazepam (Ativan) 0.5 mg PO HS [facility] Last Admin: 06/03/18 21:42 Dose: 0.5 mg Lorazepam (Ativan) 0.5 mg PO Q6H PRN PRN Reason: Anxiety Last Admin: 06/04/18 10:10 Dose: 0.5 mg Lubiprostone (Amitiza) 24 mcg PO BID [facility] Last Admin: 06/04/18 08:44 Dose: 24 mcg Miscellaneous Medication (Movantik) 12.5 mg PO DAILY-AC [facility] Last Admin: 06/04/18 08:45 Dose: 12.5 mg Miscellaneous Medication (Lidocaine Patch Removal) 1 each TOP HS [facility] Last Admin: 06/03/18 21:44 Dose: 1 each Morphine Sulfate (Morphine) 0.5 mg SLOW IVP Q6H PRN PRN Reason: Severe Pain (7-10) Last Admin: 06/04/18 03:49 Dose: 0.5 mg Multivitamins (Theragran) 1 tab PO DAILY [facility] Last Admin: 06/04/18 08:44 Dose: 1 tab Nystatin (Mycostatin Powder) 0 gm TOP TID [facility] Last Admin: 06/04/18 08:46 Dose: 1 appful Ondansetron HCl (Zofran Odt) 4 mg PO 0100,0900,1700 [facility] Last Admin: 06/04/18 08:44 Dose: 4 mg Pantoprazole Sodium (Protonix) 40 mg PO QAM-WM [facility] Last Admin: 06/04/18 07:42 Dose: 40 mg Polyethylene Glycol (Miralax) 17 gm PO HS [facility] Last Admin: 06/03/18 21:42 Dose: 17 gm Potassium Chloride (Klor-Con 10) 10 meq PO TID-[facility] Last Admin: 06/04/18 12:20 Dose: 10 meq Prednisone (Prednisone) 10 mg PO QAM-[facility] Last Admin: 06/04/18 08:44 Dose: 10 mg Promethazine HCl (Phenergan) 25 mg IM/IV Q8H PRN PRN Reason: Nausea/Vomiting Last Admin: 06/04/18 00:44 Dose: 25 mg Simethicone (Mylicon Chewable) 80 mg PO TID [facility] Last Admin: 06/04/18 08:44 Dose: 80 mg Sodium Chloride (Flush - Normal Saline) 10 ml IVF Q12HR [facility] Last Admin: 06/03/18 21:44 Dose: 10 ml Sodium Chloride (Flush - Normal Saline) 10 ml IVF PRN PRN PRN Reason: Saline Flush Last Admin: 05/29/18 04:11 Dose: 10 ml Torsemide (Demadex) 40 mg PO BID [facility] Last Admin: 06/04/18 08:52 Dose: 40 mg Tramadol HCl (Ultram) 50 mg PO Q6H PRN PRN Reason: Moderate Pain (4-6) Last Admin: 06/01/18 22:25 Dose: 50 mg
[2018-06-04] MEDS: Gabapentin 300 MG CAP PO SCH ×2 (15:25→20:29)
[2018-06-04] MEDS: HumaLOG 300 UNITS/3 ML VIAL SC PRN (16:48)
[2018-06-04] MEDS: Atorvastatin Calcium 10 MG TAB PO SCH (20:30)
[2018-06-04] MEDS: Lorazepam 0.5 MG TAB PO SCH (20:30)
[2018-06-04] MEDS: Lidocaine Patch Removal TOP SCH (20:31)
[2018-06-04] MEDS: Polyethylene Glycol 3350 17 GM Packet PO SCH ×2 (20:32→21:16)
[2018-06-05] MEDS: traMADol HCl 50 MG TAB PO PRN ×4 (00:11→19:54)
[2018-06-05] MEDS: Ondansetron ODT 4 MG TAB PO SCH ×4 (00:11→23:52)
[2018-06-05] MEDS: Acetaminophen 500 MG TAB PO PRN ×3 (01:08→19:54)
--- NOTE | 2018-06-05 02:58 | PRG ---
DATE OF SERVICE: 06/04/2018 REASON FOR CONSULTATION: Nausea, vomiting, abdominal pain, and constipation. SUBJECTIVE: Today, the patient states that she was able to have approximately 3-4 semi-solid bowel m ovements without any difficulty with defecation and improvement in her abdominal pain. Concurrently, she was also able to eat more food today with lessening of her nausea and vomiting x1 this morning t hat was not witnessed by nursing staff. Currently denies any fevers, chills, dysphagia, or odynophag ia. OBJECTIVE: VITAL SIGNS: Temperature 98.1, pulse 78, blood pressure 136/68, respiratory rate 16, satting 98% on room air. GENERAL: Patient is lying in bed in no acute distress. She is alert and oriented x4. CARDIOVASCULAR: Regular rate and rhythm with 4/6 systolic murmur, best heard at the right upper ster nal border with high pitched character. RESPIRATORY: Clear to auscultation bilaterally. ABDOMEN: Normoactive bowel sounds, soft, nontender, nondistended. EXTREMITIES: No cyanosis, clubbing, or edema. LABORATORY DATA: No current studies are available for review. IMAGING DATA: No current GI imaging is available for review. 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 Abdominal pain: The patient has had multiple hospitalizations within the last 6-12 months for increa sed right upper quadrant/midepigastric abdominal pain. She does also carry diagnosis of chronic pain syndrome and had been taking increased amounts of narcotics for many years, which could be theoretic ally contributing to her abdominal pain with resulting in functional gastroparesis and/or narcotic chantal wel syndrome; however, her abdominal pain has significantly improved and on admission with reinstitut ion of a proper bowel regimen and having regular bowel movements. RECOMMENDATIONS: 1. Continue lubiprostone 24 mcg b.i.d. as well as MiraLax daily as part of her bowel regimen. If th e patient is having increasing frequency or increasing liquid bowel movements would consider disconti nuation of the naloxegol. 2. Continue lower-fiber diet and given the possibility of functional gastroparesis. 3. Continue naloxegol 12.5 mg daily while inpatient, but can discontinue on discharge. 4. Continue to minimize any narcotic administration. Nausea/vomiting: The patient is also presenting with a chronic history of nausea, vomiting, and dysp hagia that continued into this hospitalization, but has been improving slowly over the last few days with scheduled antiemetics and regular dosing of PPI in the morning prior to eating breakfast. Most recent upper endoscopy performed on 12/09/2017 showed relatively normal esophagus without any evidenc e of stricture, stenosis, mass lesions, or ulcerations that could potentially contribute to the nause a, vomiting, or dysphagia symptoms she has had in the past. RECOMMENDATIONS: 1. Continue pantoprazole 40 mg daily. 2. Continue standard antireflux precautions. 3. Continue scheduled antiemetics for nausea control. 4. Encourage oral intake as much as possible. At this point, the patient's clinical status is improving to raise the possibility of discharge withi n the next 24-48 hours. We will continue to follow. Please call with any additional questions.
[2018-06-05] MEDS: Lorazepam 0.5 MG TAB PO PRN ×2 (04:38→16:09)
[2018-06-05 05:43] LABS: #Eosinphils 0.1 thou/uL (0.0-0.7); #Lymphocytes 2.3 thou/uL (1.20-3.40); #Monocytes 0.8 thou/uL (0.11-0.59); #Neutrophils 4.5 thou/uL (1.40-6.50); %Basophils 0.4 % (0.0-1.0); %Eosinophils 0.7 % (0.0-10.0); %Lymphocytes 29.8 % (21.0-51.0); %Monocytes 9.9 % (0.0-10.0); %Neutrophils 59.2 % (42.0-75.0); Mean Corpuscular HGB CONC 30.8 g/dL (32.0-36.0); Mean Corpuscular Hemoglobin 26.8 pg (27.0-31.0); Mean Corpuscular Volume 87.1 fL (78.0-98.0); Mean Platelet Volume 8.2 fL (7.4-10.4); Platelet Count 271 thou/uL (130-400); RBC Distribution Width 15.8 % (11.5-14.5); Red Blood Cell (RBC) Count 4.09 mill/uL (4.20-5.40); White Blood Cell (WBC) Count 7.6 thou/uL (4.8-10.8)
[2018-06-05 05:54] LABS: Anion Gap 12 mmol/L (10-20); BUN (Urea Nitrogen) 17 mg/dL (9.8-20.1); Calc. Creatinine Clearance 41 mL/min (70-130); Calcium 9.2 mg/dL (7.8-10.44); Carbon Dioxide 25 mmol/L (23-31); Chloride 105 mmol/L (98-107); Estimated GFR-MDRD 43; Glucose 184 mg/dL (83-110); Potassium 4.3 mmol/L (3.5-5.1); Sodium 138 mmol/L (136-145)
[2018-06-05] MEDS: Levothyroxine Sodium 25 MCG TAB PO SCH (06:09)
[2018-06-05] MEDS: Dextrose 5 %-0.45 % NaCl 1,000 ML IV SCH ×3 (06:09→23:56)
[2018-06-05] MEDS: Levothyroxine Sodium 112 MCG TAB PO SCH (06:09)
[2018-06-05] MEDS: Potassium Chloride 10 MEQ TAB PO SCH ×3 (08:59→17:27)
[2018-06-05] MEDS: predniSONE 5 MG TAB PO SCH (09:00)
[2018-06-05] MEDS: Heparin 5,000 UNITS/ML VIAL SC SCH ×3 (09:01→19:55)
[2018-06-05] MEDS: Gabapentin 300 MG CAP PO SCH ×2 (09:01→19:53)
[2018-06-05] MEDS: Lubiprostone 24 MCG CAP PO SCH ×2 (09:02→19:54)
[2018-06-05] MEDS: Multivit, Therapeutic 1 TAB PO SCH (09:02)
[2018-06-05] MEDS: Lidocaine 5% Patch TD SCH (09:02)
[2018-06-05] MEDS: Torsemide 20 MG TAB PO SCH ×2 (09:02→19:55)
[2018-06-05] MEDS: Simethicone Chewable 80 MG TAB PO SCH ×3 (09:03→19:54)
[2018-06-05] MEDS: Nystatin Powder 15 GM BOT TOP SCH ×3 (09:05→19:56)
[2018-06-05] MEDS: Insulin Glargine 10 UNITS in Pre-Filled Syringe 1 EACH SC SCH (09:09)
[2018-06-05] MEDS: Promethazine HCl 25 MG/ML VIAL IM/IV PRN (12:49)
--- NOTE | 2018-06-05 13:47 | PRG ---
DATE OF SERVICE: 06/05/2018 REASON FOR CONSULTATION: Nausea, vomiting, abdominal pain, and constipation. SUBJECTIVE: The patient states that her nausea and vomiting is significantly improved this morning w ith her ability to tolerate breakfast with only minimal nausea and no vomiting whatsoever. She state s that her abdominal pain has almost completely resolved except for a mild right upper quadrant abdom inal pain that is unchanged from previous. She also had approximately 3 semi-solid bowel movements y esterday with no difficulty with defecation. Currently, denies any vomiting, fevers, chills, dysphag ia, odynophagia, or constipation. OBJECTIVE: VITAL SIGNS: Temperature 97.8, pulse 76, blood pressure 143/63, respiratory rate 18, satting 96% on room air. GENERAL: Patient is lying in bed in no acute distress. She is alert and oriented x4. CARDIOVASCULAR: Regular rate and rhythm with a 4/6 systolic murmur best heard at the right upper bradly rnal border with a high-pitch character. RESPIRATORY: Clear to auscultation bilaterally. ABDOMEN: Normoactive bowel sounds, soft, nontender, nondistended. EXTREMITIES: No cyanosis, clubbing, or edema. LABORATORY DATA: CBC with a white blood cell count of 7.6, hemoglobin 11, hematocrit 35.7, platelets 271. Chemistry with a sodium of 138, potassium 4.3, chloride 105, CO2 of 25, BUN 17, creatinine 1.1 9, glucose 184. IMAGING DATA: No current GI imaging is available for review. 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 Abdominal pain. The patient has had multiple hospitalizations within the last 6-12 months due to com plaints of increased right upper quadrant/epigastric abdominal pain with her chronic narcotic use. T his pain seems to be centered more around increasing constipation and has significantly improved with having increased frequency of bowel movements. 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 With institution of a proper bowel regimen, she is now currently britt ving regular bowel habits and resolving abdominal pain. RECOMMENDATIONS: 1. Continue lubiprostone 24 mcg b.i.d. as well as MiraLax daily as part of her bowel regimen. I wou ld continue the naloxegol until discharge and then discontinue the medication on discharge. 2. Continue lower fiber diet given the possibility of functional gastroparesis. 3. Attempt to minimize any narcotic administration. Nausea and vomiting. The patient also presented with a chronic history of nausea and vomiting that h ad been slowly improving over this particular hospitalization. She is currently on scheduled antieme tics as well as a regular dosing of PPI, and while on this regimen, she was able to tolerate breakfas t this morning without any additional vomiting, although mild nausea was present based on her relativ ken normal upper endoscopy in 11/2017, further endoscopic intervention is not necessarily indicated a t this time. RECOMMENDATIONS: 1. Continue pantoprazole 40 mg daily. 2. Continue standard antireflux precautions with special attention of keeping the patient's chest up right after meals. 3. Continue scheduled antiemetics for nausea control. 4. Encourage oral intake as much as possible. At this point, I would not recommend any additional changes to her regimen either inpatient or on dis charge except for the discontinue of naloxegol on discharge. We will sign off at this time. Please call with any additional questions.
--- NOTE | 2018-06-05 17:04 | PDOC.PN ---
- Subjective Encounter Start Date: 06/05/18 Encounter Start Time: 07:20 Pt seen for followup re: nausea and vomiting. Reports feeling better, is able to eat and tolerate some diet. - Objective Resuscitation Status: Resuscitation Status FULL:Full Resuscitation Vital Signs & Weight: Vital Signs (12 hours) Temp Pulse Resp BP Pulse Ox 06/05/18 08:00 97.8 F 76 18 143/63 H 96 Weight Admit Weight 159 lb Weight 159 lb I&O: 06/04/18 06/05/18 06/06/18 06:59 06:59 06:59 Intake Total 1440 Balance 1440 Result Diagrams: 06/05/18 04:43 06/05/18 04:43 Additional Labs: Accuchecks 06/05/18 06/05/18 06/04/18 16:49 11:23 21:28 POC Glucose 239 H 155 H 153 H Phys Exam - Physical Examination Constitutional: NAD HEENT: moist MMs Neck: supple Respiratory: clear to auscultation bilateral Cardiovascular: RRR Gastrointestinal: soft Neurological: moves all 4 limbs Psychiatric: normal affect Dx/Plan (1) Nausea and vomiting Code(s): R11.2 - NAUSEA WITH VOMITING, UNSPECIFIED Status: Acute Comment: Improving, says she may be able to go home in a day or two. needs HH at time of discharge, pt refused SNU. 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 Comment: accuchecks improving (3) Severe aortic stenosis Code(s): I35.0 - NONRHEUMATIC AORTIC (VALVE) STENOSIS Status: Chronic Comment: nil acute (4) Dyslipidemia Code(s): E78.5 - HYPERLIPIDEMIA, UNSPECIFIED Status: Chronic Comment: on statin (5) GERD (gastroesophageal reflux disease) Code(s): K21.9 - GASTRO-ESOPHAGEAL REFLUX DISEASE WITHOUT ESOPHAGITIS Status: Chronic Qualifiers: Esophagitis presence: esophagitis presence not specified Qualified Code(s) : K21.9 - Gastro-esophageal reflux disease without esophagitis Comment: on PPI (6) Hypertension Code(s): I10 - ESSENTIAL (PRIMARY) HYPERTENSION Status: Chronic Qualifiers: Hypertension type: essential hypertension Qualified Code(s): I10 - Essential (primary) hypertension Comment: controlled (7) Hypothyroidism Code(s): E03.9 - HYPOTHYROIDISM, UNSPECIFIED Status: Chronic Qualifiers: Comment: continue synthroid (8) CKD (chronic kidney disease) stage 4, GFR 15-29 ml/min Code(s): N18.4 - CHRONIC KIDNEY DISEASE, STAGE 4 (SEVERE) Status: Chronic Comment: Improving (9) UTI (urinary tract infection) Status: Resolved - Plan * . Review of Systems - Review of Systems Cardiovascular: negative: chest pain, palpitations, orthopnea, paroxysmal nocturnal dyspnea, edema, light headedness Gastrointestinal: Nausea. negative: Vomiting, Abdominal Pain, Diarrhea, Constipation, Melena, Hematochezia - Medications/Allergies Allergies/Adverse Reactions: Allergies Allergy/AdvReac Type Severity Reaction Status Date / Time hydrocodone [From [place]] Allergy Verified 05/26/18 07:33 Medications: Current Medications Acetaminophen (Tylenol) 500 mg PO Q6H PRN PRN Reason: Mild Pain (1-3) Acetaminophen (Tylenol) 1,000 mg PO Q6H PRN PRN Reason: Headache/Fever or Pain MILD Last Admin: 06/05/18 11:25 Dose: 1,000 mg Aspirin (Aspirin Chewable) 81 mg PO DAILY [facility] Last Admin: 06/05/18 09:01 Dose: 81 mg Atorvastatin Calcium (Lipitor) 10 mg PO HS [facility] Last Admin: 06/04/18 20:30 Dose: 10 mg Cholecalciferol (Vitamin D3) 5,000 units PO DAILY [facility] Last Admin: 06/05/18 09:01 Dose: Not Given Dextrose/Water (Dextrose 50%) 25 gm SLOW IVP PRN PRN PRN Reason: Hypoglycemia Gabapentin (Neurontin) 600 mg PO BID [facility] Last Admin: 06/05/18 09:01 Dose: 600 mg Glucagon (Glucagon) 1 mg IM PRN PRN PRN Reason: Hypoglycemia Heparin Sodium (Porcine) (Heparin) 5,000 units SC TID [facility] Last Admin: 06/05/18 15:41 Dose: 5,000 units Hydroxyzine HCl (Atarax) 25 mg PO Q6H PRN PRN Reason: Itching Dextrose/Water (D5w) 1,000 mls @ 0 mls/hr IV .Q0M PRN PRN Reason: Hypoglycemia Dextrose/Sodium Chloride (D5 1/2 Ns) 1,000 mls @ 60 mls/hr IV .[id number] [facility] Last Admin: 06/05/18 06:09 Dose: 1,000 mls Insulin Glargine 10 units/ (Miscellaneous Medication) 0.1 mls @ 0 mls/hr SC QAM [facility] Last Admin: 06/05/18 09:09 Dose: 0.1 mls Insulin Human Lispro (Humalog) 0 units SC .MODERATE SLIDING SC PRN PRN Reason: Moderate Correctional Scale Last Admin: 06/04/18 16:48 Dose: 4 unit Levothyroxine Sodium (Synthroid) 112 mcg PO 0600 [facility] Last Admin: 06/05/18 06:09 Dose: 112 mcg Levothyroxine Sodium (Synthroid) 25 mcg PO 0600 [facility] Last Admin: 06/05/18 06:09 Dose: 25 mcg Lidocaine (Lidoderm 5% Patch) 1 patch TD DAILY [facility] Last Admin: 06/05/18 09:02 Dose: 1 patch Loperamide HCl (Imodium) 2 mg PO PRN PRN PRN Reason: Diarrhea/Loose Stools Last Admin: 05/29/18 01:36 Dose: 2 mg Lorazepam (Ativan) 0.5 mg PO HS [facility] Last Admin: 06/04/18 20:30 Dose: 0.5 mg Lorazepam (Ativan) 0.5 mg PO Q6H PRN PRN Reason: Anxiety Last Admin: 06/05/18 16:09 Dose: 0.5 mg Lubiprostone (Amitiza) 24 mcg PO BID [facility] Last Admin: 06/05/18 09:02 Dose: 24 mcg Miscellaneous Medication (Movantik) 12.5 mg PO DAILY-[facility] Last Admin: 06/05/18 08:58 Dose: 12.5 mg Miscellaneous Medication (Lidocaine Patch Removal) 1 each TOP HS [facility] Last Admin: 06/04/18 20:31 Dose: 1 each Morphine Sulfate (Morphine) 0.5 mg SLOW IVP Q6H PRN PRN Reason: Severe Pain (7-10) Last Admin: 06/05/18 15:43 Dose: 0.5 mg Multivitamins (Theragran) 1 tab PO DAILY [facility] Last Admin: 06/05/18 09:02 Dose: 1 tab Nystatin (Mycostatin Powder) 0 gm TOP TID [facility] Last Admin: 06/05/18 16:09 Dose: 1 appful Ondansetron HCl (Zofran Odt) 4 mg PO 0100,0900,1700 [facility] Last Admin: 06/05/18 09:00 Dose: 4 mg Pantoprazole Sodium (Protonix) 40 mg PO QAM-[facility] Last Admin: 06/05/18 08:59 Dose: 40 mg Polyethylene Glycol (Miralax) 17 gm PO HS [facility] Last Admin: 06/04/18 21:16 Dose: 17 gm Potassium Chloride (Klor-Con 10) 10 meq PO TID-[facility] Last Admin: 06/05/18 11:25 Dose: 10 meq Prednisone (Prednisone) 10 mg PO [facility] Last Admin: 06/05/18 09:00 Dose: 10 mg Promethazine HCl (Phenergan) 25 mg IM/IV Q8H PRN PRN Reason: Nausea/Vomiting Last Admin: 06/05/18 12:49 Dose: 25 mg Simethicone (Mylicon Chewable) 80 mg PO TID [facility] Last Admin: 06/05/18 15:40 Dose: 80 mg Sodium Chloride (Flush - Normal Saline) 10 ml IVF Q12HR [facility] Last Admin: 06/05/18 09:37 Dose: 10 ml Sodium Chloride (Flush - Normal Saline) 10 ml IVF PRN PRN PRN Reason: Saline Flush Last Admin: 05/29/18 04:11 Dose: 10 ml Torsemide (Demadex) 40 mg PO BID [facility] Last Admin: 06/05/18 09:02 Dose: 40 mg Tramadol HCl (Ultram) 50 mg PO Q6H PRN PRN Reason: Moderate Pain (4-6) Last Admin: 06/05/18 12:49 Dose: 50 mg
[2018-06-05] MEDS: HumaLOG 300 UNITS/3 ML VIAL SC PRN (17:27)
[2018-06-05] MEDS: Polyethylene Glycol 3350 17 GM Packet PO SCH (19:54)
[2018-06-05] MEDS: Atorvastatin Calcium 10 MG TAB PO SCH (19:55)
[2018-06-05] MEDS: Lorazepam 0.5 MG TAB PO SCH (19:55)
[2018-06-05] MEDS: Lidocaine Patch Removal TOP SCH (19:56)
[2018-06-06] MEDS: Acetaminophen 500 MG TAB PO PRN ×2 (01:57→09:32)
[2018-06-06] MEDS: traMADol HCl 50 MG TAB PO PRN ×2 (01:57→09:32)
[2018-06-06] MEDS: Levothyroxine Sodium 25 MCG TAB PO SCH (05:35)
[2018-06-06] MEDS: Levothyroxine Sodium 112 MCG TAB PO SCH (05:35)
[2018-06-06 07:45] VITALS: BP 165/71; TEMP 97.6
[2018-06-06] MEDS: Potassium Chloride 10 MEQ TAB PO SCH ×2 (08:11→12:01)
[2018-06-06] MEDS: predniSONE 5 MG TAB PO SCH (08:11)
[2018-06-06] MEDS: Ondansetron ODT 4 MG TAB PO SCH (08:13)
[2018-06-06] MEDS: Heparin 5,000 UNITS/ML VIAL SC SCH (09:21)
[2018-06-06] MEDS: Lidocaine 5% Patch TD SCH (09:21)
[2018-06-06] MEDS: Insulin Glargine 10 UNITS in Pre-Filled Syringe 1 EACH SC SCH (09:21)
[2018-06-06] MEDS: Multivit, Therapeutic 1 TAB PO SCH (09:22)
[2018-06-06] MEDS: Gabapentin 300 MG CAP PO SCH (09:22)
[2018-06-06] MEDS: Torsemide 20 MG TAB PO SCH (09:22)
[2018-06-06] MEDS: Simethicone Chewable 80 MG TAB PO SCH (09:22)
[2018-06-06] MEDS: Lubiprostone 24 MCG CAP PO SCH (09:23)
[2018-06-06] MEDS: Nystatin Powder 15 GM BOT TOP SCH (09:32)
--- NOTE | 2018-06-06 11:04 | DIS ---
DATE OF ADMISSION: 05/26/2018 DATE OF DISCHARGE: 06/06/2018 PRIMARY CARE PHYSICIAN: Dr. Robi Dillon. PRIMARY EXAMINATION SUPERVISOR: Dr. Seth Lynch. PRIMARY GI DOCTOR: Dr. Andres. DISCHARGE DIAGNOSES: 1. Urinary tract infection with Proteus Morganella, treated. 2. Chronic kidney disease stage 4, chronic. 3. Hypothyroidism chronic. 4. Hypertension, essential, chronic. 5. Gastroesophageal reflux disease. 6. Hyperlipidemia, chronic. 7. Nausea and vomiting, tolerating p.o., ready for discharge. 8. Diabetes mellitus type 2, with long-term insulin use with kidney complications, chronic kidney di sease stage 4. 9. Severe aortic stenosis, chronic. 10. Deconditioning. CONSULTATIONS: 1. Seth Lynch, Cardiology. 2. Gastroenterology, Dr. White taken over by Dr. Seth Lynch by Dr. Hector Andres. PROCEDURES: None. HISTORY AND PHYSICAL: Ms. Ivory is an 82-year-old female admitted from the emergency department on the day of admission after presenting for low blood sugars, nausea, and vomiting. Workup revealed urinary tract infection, hypoglycemic episodes, chronic atrial fibrillation and we we re called for admission. HOSPITAL COURSE: The patient was seen and examined by Dr. Adalberto Bustillos and admitted inpatient. She w as monitored, placed on antihypertensives and started on dextrose containing fluids. She was started on an antibiotic with meropenem initially. The patient was seen and evaluated by Dr. Seth Lynch same day for chronic atrial fibrillation and adjust her medicines. She was seen by Dr. White for Dr. Andres. Dr. White was taxation inspector for th e nausea and vomiting and recommended Milk of Magnesia and no need for endoscopic evaluation. Patient slowly improved and nausea became under control. The patient was refusing PT/OT or walking p rogram and refused any retirement or rehab placement. She can be watched and on IV antibiotics. O n 06/06/2018 was stable for discharge with home health care. DISCHARGE PHYSICAL EXAMINATION: Patient was seen and examined on the day of discharge. Discharge plan and disposition discussed with patient [id number] at bedside. DISCHARGE MEDICATIONS: New medications: None. MEDICINES CONTINUED: 1. Aspirin 325 mg daily. 2. Lipitor 10 mg p.o. at bedtime. 3. Vitamin D3 5000 units p.o. daily. 4. Gabapentin 600 mg p.o. b.i.d. 5. Hydroxyzine 25 mg p.o. q.6 hours p.r.n. 6. Levothyroxine 137 mcg daily. 7. Lorazepam 0.5 mg p.o. at bedtime. 8. Amitiza 24 mcg p.o. b.i.d. 9. Multivitamin daily. 10. Nystatin topically as needed t.i.d. 11. Pantoprazole 40 mg p.o. daily. 12. MiraLax 17 grams p.o. at bedtime. 13. Potassium chloride 20 mEq p.o. t.i.d. 14. Prednisone 10 mg daily. 15. Torsemide 40 mg p.o. b.i.d. 16. Tramadol 50 mg q.6 h. p.r.n. 17. Tylenol p.r.n. 18. Amiodarone 200 mg p.o. daily. 19. Tresiba 60 units subcu daily. 20. 75/25 Humalog 40 units subcu at bedtime. 21. Isosorbide dinitrate 10 mg p.o. b.i.d. 22. Zaroxolyn 5 mg p.o. q.a.m. 23. Zofran 4 mg as needed. FOLLOWUP APPOINTMENTS: 1. Primary care physician in a week. 2. Gastroenterology as needed. 3. Dr. Lynch as scheduled. DISCHARGE ACTIVITY: Per cardiopulmonary limits. DISCHARGE DIET: Heart healthy diabetic diet recommended. DISCHARGE CONDITION: Stable. DISPOSITION: Discharged to home with home health care and primary caregivers via a private vehicle.
[2018-06-06] MEDS: HumaLOG 300 UNITS/3 ML VIAL SC PRN (12:01)
== END 2018-06-06 15:20 | disposition home health service (06) | DRG 690 ==
LOC: ERS 00:37 → ONC 03:28
PROVIDERS: ADMIT Internal Medicine; ATTEND Internal Medicine
DX: N39.0 Urinary tract infection, site not specified (principal); I13.0 Hypertensive heart and chronic kidney disease with heart failure and stage 1 through stage 4 chronic kidney disease, or unspecified chronic kidney disease; I50.32 Chronic diastolic (congestive) heart failure; N18.4 Chronic kidney disease, stage 4 (severe); L97.219 Non-pressure chronic ulcer of right calf with unspecified severity; L03.119 Cellulitis of unspecified part of limb; B96.4 Proteus (mirabilis) (morganii) as the cause of diseases classified elsewhere; I35.0 Nonrheumatic aortic (valve) stenosis; E87.6 Hypokalemia; I48.2 Chronic atrial fibrillation; E11.649 Type 2 diabetes mellitus with hypoglycemia without coma; E11.22 Type 2 diabetes mellitus with diabetic chronic kidney disease; G89.4 Chronic pain syndrome; R13.10 Dysphagia, unspecified; E11.43 Type 2 diabetes mellitus with diabetic autonomic (poly)neuropathy; K31.84 Gastroparesis; I83.012 Varicose veins of right lower extremity with ulcer of calf; R19.7 Diarrhea, unspecified; M10.9 Gout, unspecified; R62.7 Adult failure to thrive; K59.03 Drug induced constipation; T40.605A Adverse effect of unspecified narcotics, initial encounter; E03.9 Hypothyroidism, unspecified; E66.01 Morbid (severe) obesity due to excess calories; Z79.4 Long term (current) use of insulin; Z79.82 Long term (current) use of aspirin; Z79.891 Long term (current) use of opiate analgesic; Z68.31 Body mass index [BMI] 31.0-31.9, adult
CPT/HCPCS: 36415; 36416; 74018; 80048; 80053; 81003; 81015; 82550; 82553; 83605; 83690; 83880; 84484; 85025; 87040; 87045; 87046; 87077; 87086; 87186; 87324; 87449; 87899; 93005; 93010; 96365; 96366; 96368; 96375; 96376; G8987-GO-CK; G8988-GO-CI; J0696; J1642; J1644; J2270; J2405; J2543; J2550; J3480; J7050; Q0162

== ENCOUNTER 2018-06-20 10:57 | Outpatient (CLI) | payer MEDICARE, BC ==
--- NOTE | 2018-06-20 14:38 | RAD ---
LEFT TOES THREE VIEWS: 06/20/18 HISTORY: 82-year-old female with history of left great toe ulceration. There is an approximately 1.2 x 1.9 cm diameter gas filled cavity or ulcer involving the medial aspec t of the distal great toe with associated soft tissue swelling. No overt bony erosive or destructive changes to suggest plain film, evidence for active osteomyelitis. Status post amputation changes of t he second, third, and fifth toes with some old deformity of the fourth toe. IMPRESSION: Soft tissue swelling of the great toe with a large gas filled defect consistent with known ulcer. No definite bony erosive or destructive changes. If there is clinical concern for osteomyelitis, consid er followup MRI for further assessment. POS: [facility]
== END 2018-06-20 10:58 | disposition home or self-care (01) ==
LOC: BICRAD 10:57
DX: E11.621 Type 2 diabetes mellitus with foot ulcer (principal); L97.521 Non-pressure chronic ulcer of other part of left foot limited to breakdown of skin; M79.89 Other specified soft tissue disorders
CPT/HCPCS: 80048

== ENCOUNTER 2018-08-28 10:54 | Emergency (ER) | payer MEDICARE, BC ==
--- NOTE | 2018-08-28 12:03 | RAD ---
LEFT TIBIA AND FIBULA 2 VIEWS: Date: 08/28/18 HISTORY: Fall. Pain. COMPARISON: None. FINDINGS: Soft tissues are diffusely swollen. Moderate vascular calcifications. Although there appears to be a nondisplaced transversely oriented fracture of the proximal fibula, th is is felt to represent a linear lucency in the anterior tibial artery, calcifications not a fracture . IMPRESSION: No acute fracture. Soft tissue swelling. POS: [facility]
[2018-08-28] MEDS ORDERED: Acetaminophen 500 MG TAB ONE (12:04)
--- NOTE | 2018-08-28 13:09 | RAD ---
LEFT SHOULDER 3 VIEWS: Date: 08/28/18 HISTORY: Left shoulder pain. FINDINGS: Acromioclavicular and glenohumeral alignment are maintained. Mild osteophytosis and joint space narro wing. No acute fracture or dislocation. Old left posterior upper rib fractures. IMPRESSION: Mild degenerative changes. No acute osseous abnormalities are demonstrated. POS: [facility]
--- NOTE | 2018-08-28 13:10 | RAD ---
CHEST 1 VIEW: Date: 08/28/18 HISTORY: Chest pain. COMPARISON: 04/22/18. FINDINGS: Cardiac silhouette is magnified and enlarged. Pulmonary vasculature is upper limits of normal. Medias tinum is midline with aortic calcification and an anterior chest wall electronic monitoring device. M inimal atelectasis at the right lung base. No evidence of pneumothorax. IMPRESSION: Atherosclerosis. Chronic-type findings appear stable. POS: [facility]
[2018-08-28] MEDS ORDERED: Adacel (T-DAP) 0.5 ML SYRINGE ONE (13:35)
[2018-08-28] MEDS ORDERED: Lidocaine 1% w/Epinephrine 1:100K 20 ML VIAL ONE (13:35)
[2018-08-28] MEDS ORDERED: Bacitracin Zinc 1 Packet ONE (15:21)
== END 2018-08-28 16:00 | disposition home or self-care (01) ==
LOC: ERS 10:54
DX: S81.812A Laceration without foreign body, left lower leg, initial encounter (principal); Z23 Encounter for immunization; I48.91 Unspecified atrial fibrillation; I25.10 Atherosclerotic heart disease of native coronary artery without angina pectoris; I11.0 Hypertensive heart disease with heart failure; I50.9 Heart failure, unspecified; E11.9 Type 2 diabetes mellitus without complications; E78.5 Hyperlipidemia, unspecified; Z79.899 Other long term (current) drug therapy; Z79.82 Long term (current) use of aspirin; Z79.4 Long term (current) use of insulin; W26.8XXA Contact with other sharp object(s), not elsewhere classified, initial encounter
CPT/HCPCS: 12006; 71045; 90471; 90715; J2001

== ENCOUNTER 2018-10-03 00:20 | Outpatient (CLI) | payer MEDICARE, BC ==
[2018-10-03 11:22] LABS: PTT 29.1 SEC (22.9-36.1); Prothrombin Time 13.3 SEC (12.0-14.7)
[2018-10-03 11:26] LABS: Anion Gap 14 mmol/L (10-20); BUN (Urea Nitrogen) 44 mg/dL (9.8-20.1); Calc. Creatinine Clearance 0 mL/min (70-130); Carbon Dioxide 30 mmol/L (23-31); Chloride 101 mmol/L (98-107); Estimated GFR-MDRD 46; Glucose 116 mg/dL (83-110); Sodium 141 mmol/L (136-145)
[2018-10-03 12:07] LABS: #Basophils 0.1 thou/uL (0.0-0.2); #Monocytes 0.9 thou/uL (0.11-0.59); %Basophils 0.4 % (0.0-1.0); %Eosinophils 0.2 % (0.0-10.0); %Lymphocytes 8.3 % (21.0-51.0); %Monocytes 7.8 % (0.0-10.0); %Neutrophils 83.2 % (42.0-75.0); Hemoglobin 10.8 g/dL (12.0-16.0); Hypochromia SLIGHT = 6-15 cells (100X) (0-5/hpf); MDiff Complete? YES; Mean Corpuscular HGB CONC 29.2 g/dL (32.0-36.0); Mean Corpuscular Volume 82.1 fL (78.0-98.0); Mean Platelet Volume 7.5 fL (7.4-10.4); Platelet Count 371 thou/uL (130-400); Platelet Morphology Comment Appears Adequate; Polychromasia SLIGHT = 2-3 cells (100X) (0-2/hpf); RBC Distribution Width 16.5 % (11.5-14.5); Red Blood Cell (RBC) Count 4.49 mill/uL (4.20-5.40)
== END 2018-10-03 00:21 | disposition home or self-care (01) ==
LOC: LABBT 00:20
PROVIDERS: ATTEND Internal Medicine Cardiovascular Disease
DX: Z01.818 Encounter for other preprocedural examination (principal)
CPT/HCPCS: 80048; 82955; 84550; 85025; 85041; 85610; 85730; 86140; 93005; 93010

== ENCOUNTER → 2018-10-05 | Day surgery (SDC) | payer MEDICARE, BC ==
[2018-10-03 09:57] VITALS: BMI 26.4
[~2018-10-05] MED LIST: Acetaminophen/Codeine 30-300mg Tablet PO PRN; Fentanyl 100 MCG/2 ML VIAL ONE; Fentanyl 100 MCG/2 ML VIAL SLOW IVP PRN; Heparin 10,000 UNITS/1 ML VIAL ONE; Iopamidol 370 76% 100 ML VIAL ONE; Nitroglycerin 0.4 MG TAB (25 Tab Bottle) SL PRN; Nitroglycerin 100MG/250ML BOT 0 ML ONE; Sodium Chloride 0.9% 1,000 ML IV SCH; traMADol HCl 50 MG TAB PO PRN
--- NOTE | 2018-10-05 15:32 | DIS ---
DATE OF ADMISSION: 10/05/2018 DATE OF DISCHARGE: 10/05/2018 Ms. Ivory underwent cardiac catheterization today revealed the followin. Left main normal. 2. LAD stent widely patent with no restenosis, 3.5 mm stent. 3. Circumflex. There is an obtuse marginal branch with 50% to 60% lesion did not appear to be flow limiting. 4. Right coronary large right dominant vessel with no flow-limiting disease. The patient has known severe aortic stenosis with normal left ventricular systolic function. The patient has severe musculoskeletal pain and she was trying to lay in bed for a few hours even elevated at about 30 to 48 degrees was very painful for her, and musculoskeletal pain. The patient is overall very poor physical health. I think she is an extremely poor candidate for open heart surgery, who referred for consideration for transcutaneous aortic valve replacement. Job ID: [id number]
== END ==
LOC: CCL 05:54
PROVIDERS: ATTEND Internal Medicine Cardiovascular Disease
PROC: 4A023N7 Measurement of Cardiac Sampling and Pressure, Left Heart, Percutaneous Approach (ICD-10-PCS; principal; 2018-10-05)
PROC: B2101ZZ Fluoroscopy of Single Coronary Artery using Low Osmolar Contrast (ICD-10-PCS; 2018-10-05)
DX: I25.10 Atherosclerotic heart disease of native coronary artery without angina pectoris (principal); I35.0 Nonrheumatic aortic (valve) stenosis; I48.0 Paroxysmal atrial fibrillation; I13.0 Hypertensive heart and chronic kidney disease with heart failure and stage 1 through stage 4 chronic kidney disease, or unspecified chronic kidney disease; E11.22 Type 2 diabetes mellitus with diabetic chronic kidney disease; N18.4 Chronic kidney disease, stage 4 (severe); I50.32 Chronic diastolic (congestive) heart failure; E78.00 Pure hypercholesterolemia, unspecified; Z88.5 Allergy status to narcotic agent; Z79.891 Long term (current) use of opiate analgesic; Z79.82 Long term (current) use of aspirin; Z79.52 Long term (current) use of systemic steroids; Z79.4 Long term (current) use of insulin; Z79.899 Other long term (current) drug therapy; Z98.890 Other specified postprocedural states
CPT/HCPCS: 36416; 76942; 93454; 99152; 99153; C1769; J1644; J3010; Q9967

== ENCOUNTER 2018-10-07 14:15 | Emergency (ER) | payer MEDICARE, BC ==
[2018-10-07 15:23] LABS: #Monocytes 0.4 thou/uL (0.11-0.59); #Neutrophils 10.9 thou/uL (1.40-6.50); %Basophils 0.4 % (0.0-1.0); %Eosinophils 0.3 % (0.0-10.0); %Lymphocytes 8.2 % (21.0-51.0); %Monocytes 3.2 % (0.0-10.0); Hemoglobin 9.2 g/dL (12.0-16.0); Mean Corpuscular HGB CONC 29.7 g/dL (32.0-36.0); Mean Corpuscular Hemoglobin 24.1 pg (27.0-31.0); Mean Corpuscular Volume 81.1 fL (78.0-98.0); Mean Platelet Volume 7.4 fL (7.4-10.4); Platelet Count 342 thou/uL (130-400); RBC Distribution Width 16.7 % (11.5-14.5); Red Blood Cell (RBC) Count 3.82 mill/uL (4.20-5.40); White Blood Cell (WBC) Count 12.4 thou/uL (4.8-10.8)
[2018-10-07 15:36] LABS: ALT (SGPT) 10 U/L (8-55); AST (SGOT) 12 U/L (5-34); Albumin 3.3 g/dL (3.4-4.8); Alkaline Phosphatase 98 U/L (40-150); Anion Gap 14 mmol/L (10-20); BUN (Urea Nitrogen) 40 mg/dL (9.8-20.1); Bilirubin, Total 0.6 mg/dL (0.2-1.2); Calc. Creatinine Clearance 0 mL/min (70-130); Calcium 9.7 mg/dL (7.8-10.44); Carbon Dioxide 29 mmol/L (23-31); Chloride 99 mmol/L (98-107); Estimated GFR-MDRD 30; Globulin 3.2 g/dL (2.4-3.5); Glucose 205 mg/dL (83-110); Lipase 8 U/L (8-78); Potassium 4.5 mmol/L (3.5-5.1); Protein, Total 6.5 g/dL (6.0-8.3); Sodium 137 mmol/L (136-145)
--- NOTE | 2018-10-07 15:46 | RAD ---
CHEST ONE VIEW: HISTORY: Shortness of breath. COMPARISON: Radiograph from 08/28/2018. FINDINGS: A loop recording device projects over the left hemithorax. There is height loss of the lower thoraci c vertebra, likely T12. Chronic scarring in the lung bases. Calcified granuloma in the left lung base. IMPRESSION: 1. No acute intrathoracic abnormality. 2. Likely some height loss of the lower thoracic vertebrae. Dedicated thoracolumbar radiographs may be beneficial. POS: [facility]
[2018-10-07] MEDS ORDERED: traMADol HCl 50 MG TAB ONE ×2 (16:12→16:15)
--- NOTE | 2018-10-07 16:14 | RAD ---
THREE VIEWS LEFT FOOT: 10/07/18 INDICATION: Wound care. Patient with history of toe infection and prior amputations. FINDINGS: There is predominant absence of the phalanges of the left foot with mild residua seen at the third an d fourth digits. Soft tissue prominence and diffuse vascular calcification present. There is generali zed osseous demineralization. There is chronic appearing osseous irregularity at the distal fourth me tatarsal. Soft tissue air is projecting at the distal aspect of the fourth digit soft tissues. IMPRESSION: Predominant absence of the digits of the left foot with mild residua seen at the left third and fourt h digits. No obvious acute focal destructive lesion. If there is a high clinical suspicion for osteo myelitis, consider three phase bone scan or MRI. There is soft tissue prominence and irregularity with suggestion of gas density at the fourth digit. POS: [facility]
[2018-10-07 16:15] LABS: CKMB 2.8 ng/mL (0-6.6)
[2018-10-07] MEDS ORDERED: Acetaminophen 500 MG TAB ONE (17:34)
== END 2018-10-07 18:25 | disposition home or self-care (01) ==
LOC: ERS 14:15
DX: L03.032 Cellulitis of left toe (principal); I48.91 Unspecified atrial fibrillation; I25.10 Atherosclerotic heart disease of native coronary artery without angina pectoris; E11.9 Type 2 diabetes mellitus without complications; E78.5 Hyperlipidemia, unspecified; I11.0 Hypertensive heart disease with heart failure; I50.9 Heart failure, unspecified; Z79.899 Other long term (current) drug therapy; Z79.82 Long term (current) use of aspirin; Z79.4 Long term (current) use of insulin
CPT/HCPCS: 36415; 71045; 80053; 82553; 83690; 83880; 84484; 85025; 93005

== ENCOUNTER 2018-10-10 16:01 | Inpatient (IN) | payer MEDICARE, BC ==
[2018-10-10 17:21] VITALS: BMI 25.7
[2018-10-10] MEDS ORDERED: Nitroglycerin 0.4 MG TAB (25 Tab Bottle) SL PRN (18:11)
[2018-10-10] MEDS ORDERED: DICLOFENAC SODIUM TOP PRN (18:11)
[2018-10-10] MEDS ORDERED: Ondansetron ODT 4 MG TAB PO PRN ×2 (18:11→18:13)
[2018-10-10] MEDS ORDERED: Acetaminophen 500 MG TAB PO PRN (18:11)
[2018-10-10] MEDS ORDERED: Acetaminophen 650 MG Suppository PR PRN (18:13)
[2018-10-10] MEDS ORDERED: Dextrose 5% in Water 1,000 ML IV PRN (18:13)
[2018-10-10] MEDS ORDERED: Guaifenesin DM 100-10/5 ML UDCUP PO PRN (18:13)
[2018-10-10] MEDS ORDERED: Dextrose 50% Abboject 50 ML SYRINGE SLOW IVP PRN (18:13)
[2018-10-10] MEDS ORDERED: Senokot S 8.6-50 MG TAB PO PRN (18:13)
[2018-10-10] MEDS: Morphine 4 MG/ML VIAL SLOW IVP PRN ×2 (19:14→23:12)
--- NOTE | 2018-10-10 19:46 | RAD ---
LEFT FOOT THREE VIEWS: INDICATIONS: Concern for osteomyelitis. COMPARISON: 10/07/2018 FINDINGS: Partial amputation of the forefoot appears similar. Healed deformity involving the 4th metatarsal an d 4th digit appears similar appearing. No destructive osteolysis is evident. There are scattered va scular calcifications. Lisfranc alignment is preserved. There is persistent soft tissue swelling ab out the forefoot. IMPRESSION: 1. Persistent soft tissue swelling of the forefoot. 2. No radiographic evidence of osteomyelitis. POS: [facility]
--- NOTE | 2018-10-10 19:49 | RAD ---
CHEST TWO VIEWS: INDICATIONS: Preoperative clearance. COMPARISON: 10/07/2017 FINDINGS: The patient is severe kyphotic, limiting the exam. Neck soft tissues limits evaluation of the lung a pices. Mild cardiomegaly is stable. There is a new loop recorder overlying the central aspect of th e torso. There is healed deformity involving the sternum. No pleural effusion or gross pneumothorax is evident. IMPRESSION: 1. No definite acute abnormality within the limitations of the examination. 2. Stable mild cardiomegaly. 3. New loop recorder. POS: [facility]
[2018-10-10 19:50] LABS: Anion Gap 18 mmol/L (10-20); BUN (Urea Nitrogen) 37 mg/dL (9.8-20.1); Calc. Creatinine Clearance 32 mL/min (70-130); Calcium 9.6 mg/dL (7.8-10.44); Carbon Dioxide 29 mmol/L (23-31); Chloride 98 mmol/L (98-107); Estimated GFR-MDRD 34; Glucose 130 mg/dL (83-110); Sodium 141 mmol/L (136-145)
--- NOTE | 2018-10-10 20:18 | HP ---
PRIMARY CARE PHYSICIAN: Dr. Robi Dillon. CHIEF COMPLAINT: Left toe pain. HISTORY OF PRESENT ILLNESS: This is an 82-year-old white female with a known history of severe diabetes mellitus with previous amputations of four of her five toes on the left foot. She was seen by Dr. Quinteros, her ram car operator today in the clinic was noted to have exposure of bone of her remaining toe, the fourth toe on her left foot with some infectious changes surrounding this. Also had an elevated white blood cell count of 15,000. She was going to be directly admitted to the [facility], however, the patient preferred to [place] and came here instead, so the patient is being admitted to [place]. Dr. Quinteros is planning on doing the amputation in the morning. The patient has had some low-grade fevers at home, but otherwise has not had any other symptoms. She does have some chronic pain in her feet and then the pain from the toes, specifically bad now since she got to the hospital. The patient does report that she has had a recent catheterization by Dr. Lynch in preparation for an aortic valve replacement and she is supposed to go to [facility] in 2 weeks for evaluation for aortic valve replacement. PAST MEDICAL HISTORY: 1. Diabetes mellitus type 2, insulin dependent. 2. Chronic venous stasis dermatitis of the lower extremities with multiple admissions for cutaneous abscess over the last year. 3. Chronic low back pain. 4. Gout. 5. Morbid obesity. 6. Hypothyroidism. 7. Hypertension. 8. Dyslipidemia. 9. Chronic kidney disease, stage 3. 10. Severe aortic stenosis. PAST SURGICAL HISTORY: 1. Cholecystectomy. 2. Amputation of multiple toes of left foot. 3. Appendectomy. 4. Hysterectomy. 5. Bilateral cataract surgery. SOCIAL HISTORY: No tobacco, alcohol, or illicit drug use. FAMILY HISTORY: The patient's daughter of breast cancer and son at age 4747 years old from colon cancer. ALLERGIES: HYDROCODONE CAUSES ITCHING. CURRENT MEDICATIONS: 1. Cefdinir 300 mg twice a day. 2. Cephalexin 500 mg twice a day. 3. Bactrim Double Strength 1 tablet twice a day. 4. Tresiba insulin 6 units subcu daily. 5. Humalog 75/25 as directed. 6. Acetaminophen as needed. 7. Aspirin 81 mg daily. 8. Atorvastatin 10 mg daily. 9. Vitamin D3 of 5000 units daily. 10. Diclofenac cream as needed. 11. Gabapentin 600 mg three times a day. 12. Isosorbide dinitrate 10 mg twice a day. 13. Levothyroxine 137 mcg daily. 14. Ativan 1 mg at night as needed. 15. Amitiza 24 mcg twice a day. 16. Zaroxolyn 5 mg in the morning on Tuesdays and Fridays. 17. Multivitamin daily. 18. Nitroglycerin 0.4 mg sublingual as needed. 19. Nystatin cream 4 times a day. 20. Zofran as needed. 21. Protonix 40 mg daily. 22. MiraLAX 17 g daily. 23. Potassium chloride 20 mEq tablets 4 tablets three times a day. 24. Prednisone 10 mg daily. 25. Torsemide 40 mg twice a day. 26. Tramadol 50 mg q.6 hours as needed for pain. REVIEW OF SYSTEMS: CONSTITUTIONAL: Chills and low-grade fevers. She does not have any high fevers. EYES: She has had some worsened blurred vision over the last 3 to 4 months and nothing acute. ENT: No congestion, drainage, or sore throat. CARDIOVASCULAR: She has intermittent chest pains followed by Dr. Lynch with recent catheterization. PULMONARY: No coughing, wheezing, or shortness of breath. GASTROINTESTINAL: No abdominal pain. No nausea or vomiting. She had some diarrhea after catheterization. She is now constipated. GENITOURINARY: No dysuria or hematuria. MUSCULOSKELETAL: She has chronic back pain and the pain in the left toe. SKIN: She has a rash in that left toe. She is not able to really see it very well, confirmed the bottom of it. NEUROLOGIC: She has decreased sensation in bilateral lower extremities from diabetes. Otherwise, no focal neurologic signs that she has noticed. PHYSICAL EXAMINATION: VITAL SIGNS: Blood pressure 154/74, pulse 86, respirations 20, temperature 98.1, and O2 saturation 97% on room air. GENERAL: This is a well-developed, elderly white female, in no acute distress. HEENT: Pupils equal, round, and reactive to light. Oropharynx clear without lesions, erythema, or exudate. NECK: Supple. No lymphadenopathy. No thyroid nodules or enlargement. No JVD. HEART: Regular rate and rhythm and she has a 3/6 holosystolic harsh murmur, worse at the left sternal border and at the apex of the heart. LUNGS: Clear to auscultation bilaterally. No wheezes, crackles, or rhonchi. ABDOMEN: Soft and nontender to palpation. Normoactive bowel sounds. No hepatosplenomegaly or other masses. EXTREMITIES: She has some bilateral lower extremity edema and some chronic stasis changes. Then, toes on her left foot are all surgically absent except for the fourth toe. This is missing the pad of the toe. She has exposed bone in this area and some surrounding infectious changes whitening of the skin around it and is tender to palpation, not warm. No active drainage at this time. She does not have any spreading redness from the toe. No tenderness up onto the foot. SKIN: See above toe exam. The patient also has some chronic venous ulcers of the right lower extremity with a wrap on them currently. NEUROLOGIC: Intact strength in all extremities. She has decreased sensation in bilateral lower extremities. No facial droop. PSYCHIATRIC: Alert and oriented x3. Normal mood and affect. LABORATORY DATA: Lab done in the clinic shows a white blood cell count of 15,000 with 80% neutrophils, hemoglobin 10.2, hematocrit 34.8, platelet count 497. Complete metabolic panel was notable for a BUN of 42, creatinine of 1.79, which is about baseline for her. Glucose of 72. Remainder of the complete metabolic panel was normal. Her C-reactive protein was elevated at 2.62. ASSESSMENT: 1. Osteomyelitis of the left remaining toe with some mild surrounding cellulitis. Dr. Quinteros plans to take this toe off tomorrow. We will also give her dose of vancomycin and Zosyn at this time. We will get an x-ray as well per Dr. Quinteros's request. 2. Diabetes mellitus type 2, insulin dependent. We will give the patient a half dose of her Lantus tomorrow morning due to her n.p.o. status for surgery, and we will continue a moderate sliding scale every before meals and at bedtime. 3. Hypertension. Resume blood pressure medications. 4. Hyperlipidemia. We will resume home statin. 5. Coronary artery disease. We will continue the patient's low-dose aspirin. 6. Chronic kidney disease, currently stable. We will continue the patient's diuretics. 7. Gastrointestinal prophylaxis. We will continue the patient's Protonix. 8. Deep venous thrombosis prophylaxis. After the patient's surgery, we can start her on some prophylactic Lovenox. We will hold that for right now for surgery. CODE STATUS: I did discuss this with the patient. She is a full code. Should she be incapacitated, she states that her granddaughter is her medical power of securities attorney. Her name is Brandy Ivory. Job ID: [id number]
[2018-10-10] MEDS: Gabapentin 300 MG CAP PO SCH (20:38)
[2018-10-10] MEDS: Nystatin Cream 30 GM TUBE TOP SCH (20:38)
[2018-10-10] MEDS: Isosorbide Dinitrate 5 MG TAB PO SCH (20:38)
[2018-10-10] MEDS: Atorvastatin Calcium 10 MG TAB PO SCH (20:39)
[2018-10-10] MEDS: Lorazepam 1 MG TAB PO PRN (20:52)
[2018-10-10] MEDS ORDERED: Vancomycin HCl 1 GM in Premix Bag 1 BAG IVPB SCH (21:00)
[2018-10-10] MEDS ORDERED: Famotidine/PF 20 mg/2ml Vial SLOW IVP SCH (21:00)
[2018-10-10] MEDS: Acetaminophen 325 MG TAB PO PRN (23:12)
[2018-10-10] MEDS: Piperacillin/Tazobactam 3.375 GM in Sodium Chloride 0.9% 100 ML IVPB SCH (23:12)
[2018-10-10] MEDS: Ondansetron PF 4 MG/2 ML Vial IVP PRN (23:43)
[2018-10-11 04:35] LABS: #Basophils 0.1 thou/uL (0.0-0.2); #Eosinphils 0.1 thou/uL (0.0-0.7); #Lymphocytes 2.6 thou/uL (1.20-3.40); #Monocytes 0.8 thou/uL (0.11-0.59); #Neutrophils 6.7 thou/uL (1.40-6.50); %Basophils 0.6 % (0.0-1.0); %Eosinophils 0.8 % (0.0-10.0); %Lymphocytes 24.9 % (21.0-51.0); %Monocytes 7.9 % (0.0-10.0); %Neutrophils 65.8 % (42.0-75.0); Hemoglobin 9.8 g/dL (12.0-16.0); Mean Corpuscular HGB CONC 29.6 g/dL (32.0-36.0); Mean Corpuscular Hemoglobin 24.2 pg (27.0-31.0); Mean Corpuscular Volume 81.8 fL (78.0-98.0); Mean Platelet Volume 7.2 fL (7.4-10.4); Platelet Count 420 thou/uL (130-400); RBC Distribution Width 16.8 % (11.5-14.5); Red Blood Cell (RBC) Count 4.02 mill/uL (4.20-5.40); White Blood Cell (WBC) Count 10.2 thou/uL (4.8-10.8)
[2018-10-11 04:42] LABS: Anion Gap 15 mmol/L (10-20); BUN (Urea Nitrogen) 39 mg/dL (9.8-20.1); Calc. Creatinine Clearance 24 mL/min (70-130); Calcium 9.5 mg/dL (7.8-10.44); Carbon Dioxide 31 mmol/L (23-31); Chloride 98 mmol/L (98-107); Estimated GFR-MDRD 25; Glucose 151 mg/dL (83-110); Sodium 140 mmol/L (136-145)
[2018-10-11] MEDS: Morphine 4 MG/ML VIAL SLOW IVP PRN ×3 (05:27→22:49)
[2018-10-11] MEDS: Piperacillin/Tazobactam 3.375 GM in Sodium Chloride 0.9% 100 ML IVPB SCH ×4 (05:27→22:50)
[2018-10-11] MEDS: Levothyroxine Sodium 112 MCG TAB PO SCH (05:41)
[2018-10-11] MEDS: Torsemide 20 MG TAB PO SCH ×2 (05:41→14:58)
[2018-10-11] MEDS: Levothyroxine Sodium 25 MCG TAB PO SCH (05:41)
[2018-10-11] MEDS: Acetaminophen 325 MG TAB PO PRN ×3 (07:51→20:18)
--- NOTE | 2018-10-11 08:58 | PDOC.PN ---
- Subjective Encounter Start Date: 10/11/18 - Objective Resuscitation Status - Order Detail: 10/10/18 18:13 Resuscitation Status Routine Resuscitation Status: FULL: Full Resuscitation Discussed with: Patient [place] Reviewed: Yes Vital Signs & Weight: Vital Signs (12 hours) Temp Pulse Resp BP Pulse Ox 10/11/18 08:00 97.9 F 78 15 126/71 98 10/11/18 04:31 98.4 F 89 16 151/81 H 93 L 10/11/18 00:08 98.2 F 96 18 158/81 H 94 L 10/10/18 21:02 98.6 F 81 17 152/67 H 100 Weight Weight 150 lb I&O: 10/10/18 10/11/18 10/12/18 06:59 06:59 06:59 Intake Total 910 Balance 910 Result Diagrams: 10/11/18 04:01 10/11/18 04:01 Additional Labs: Accuchecks 10/11/18 10/10/18 05:57 20:51 POC Glucose 154 H 186 H Dx/Plan (1) 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 Ochoa to amputate today, x-ray negative for bony lesions (2) DM type 2 (diabetes mellitus, type 2) Status: Chronic Qualifiers: Diabetes mellitus mcc insulin use: with mcc use Comment: half dose of Lantus day of surgery, increase back to full dose after that (3) CKD (chronic kidney disease), stage III Code(s): N18.3 - CHRONIC KIDNEY DISEASE, STAGE 3 (MODERATE) Status: Chronic Comment: jumped a bit today, will monitor (4) Coronary artery disease Code(s): I25.10 - ATHSCL HEART DISEASE OF [place] CORONARY ARTERY W/O ANG PCTRS Status: Chronic Qualifiers: Coronary Disease-Associated Artery/Lesion type: [place] artery [place] vs. transplanted heart: [place] heart Associated angina: without angina Qualified Code(s): I25.10 - Atherosclerotic heart disease of [place] coronary artery without angina pectoris Comment: on ASA,statin,BB (5) Dyslipidemia Code(s): E78.5 - HYPERLIPIDEMIA, UNSPECIFIED Status: Chronic Comment: on statin (6) GERD (gastroesophageal reflux disease) Code(s): K21.9 - GASTRO-ESOPHAGEAL REFLUX DISEASE WITHOUT ESOPHAGITIS Status: Chronic Qualifiers: Esophagitis presence: esophagitis presence not specified Qualified Code(s) : K21.9 - Gastro-esophageal reflux disease without esophagitis Comment: on PPI (7) Hypertension Code(s): I10 - ESSENTIAL (PRIMARY) HYPERTENSION Status: Chronic Qualifiers: Hypertension type: essential hypertension Qualified Code(s): I10 - Essential (primary) hypertension Comment: controlled (8) Hypothyroidism Code(s): E03.9 - HYPOTHYROIDISM, UNSPECIFIED Status: Chronic Qualifiers: Comment: continue synthroid (9) Paroxysmal atrial fibrillation Code(s): I48.0 - PAROXYSMAL ATRIAL FIBRILLATION Status: Chronic Comment: on Amiodarone (10) Severe aortic stenosis Code(s): I35.0 - NONRHEUMATIC AORTIC (VALVE) STENOSIS Status: Chronic Comment: hopefully can get foot infection under control to allow valve replacement in a couple weeks as scheduled - Plan cont current plan of care, continue antibiotics, PT/OT * .
[2018-10-11] MEDS ORDERED: Levothyroxine 150 MCG TAB PO SCH (09:00)
[2018-10-11] MEDS ORDERED: Pantoprazole 40 MG GRANULES PACKET PO SCH (09:00)
[2018-10-11] MEDS ORDERED: Fentanyl 100 MCG/2 ML VIAL ONE ×3 (11:02→13:41)
[2018-10-11] MEDS ORDERED: Dextrose 50% Abboject 50 ML SYRINGE ONE (11:50)
[2018-10-11] MEDS ORDERED: Bupivacaine PF 0.5% 30 ML VIAL ONE (11:59)
[2018-10-11] MEDS ORDERED: Neomycin-Polymyxin 1 ML AMP ONE ×2 (11:59→12:00)
--- NOTE | 2018-10-11 12:30 | CON ---
DATE OF CONSULTATION: 10/11/2018 REASON FOR CONSULTATION: Congestive heart failure with diastolic aortic stenosis, peripheral vascular disease, nonhealing ulcer. HISTORY OF PRESENT ILLNESS: Ms. Arminda Ivory is an 82-year-old woman with multiple medical problems as outlined above. The patient recently underwent cardiac catheterization in preparation for hopeful transcutaneous aortic valve replacement. She has had problem with nonhealing ulcers in her feet, thought to be mostly venous insufficiency. It all healed up, but recently, she had recurrence of an ulcer and according to the notes, there was actually bone protruding from a wound. She has been brought in for therapy for this. PAST MEDICAL HISTORY: 1. She has had this severe diastolic heart failure. 2. Coronary artery disease with previous stent implantation in the left anterior descending artery. Recent cardiac catheterization showed that stent is widely patent with good flow. 3. Venous insufficiency, been treated with ablation. 4. Aortic stenosis. 5. Overall poor health. 6. Diabetes. MEDICATIONS: Prior to admission, please see the nurses' notes that include torsemide and metolazone. It is also listed that she is on nonsteroidal anti-inflammatory, which we will stop. REVIEW OF SYSTEMS: CONSTITUTIONAL: Positive for weakness, fatigue, and shortness of breath. PULMONARY: Shortness of breath. CARDIAC: Difficulty breathing. No chest pain. GASTROINTESTINAL: No nausea, vomiting, or diarrhea. SKIN: No rashes. NEUROLOGIC: No unilateral weakness or numbness. PSYCHIATRIC: No unusual depression or anxiety. SOCIAL HISTORY: She does have a family, which is supportive of her. She does not use alcohol or tobacco. PHYSICAL EXAMINATION: GENERAL: On examination, this is a pleasant, chronically ill-appearing female. VITAL SIGNS: Blood pressure 126/71, pulse 78. LUNGS: Clear. CARDIAC: There is a 2/6 crescendo decrescendo murmur, high-pitched aortic stenosis. ABDOMEN: Soft and nontender. EXTREMITIES: There is no clubbing or cyanosis. There is no edema. She is obese. Peripherally, she has dressings on the right lower extremity, also some on the left foot. The pulses are strong in the popliteal area with dressings in the right foot and the left side, I do not feel pulses. PERTINENT LABORATORY DATA: Creatinine is up to 1.93. ASSESSMENT: 1. Recurrent wound abscess with bone protruding through the skin. Planning on amputation this morning. 2. Aortic stenosis, severe. 3. Coronary artery disease, best treated medically. 4. Renal failure worsened, possibly related to nonsteroidal anti-inflammatories. PLAN: 1. Stop nonsteroidal anti-inflammatories. 2. Okay to proceed with surgery. 3. Hopefully, she can ultimately recover from these and have transcutaneous aortic valve replacement. Certainly may need to make sure she has no infection before proceeding with that. May also do some studies of her peripheral arteries, although she seems to have good pulses in the popliteal area, probably is distal atherosclerosis. We will be glad to follow with you. Job ID: [id number]
[2018-10-11] MEDS ORDERED: Promethazine HCl 25 MG/ML VIAL IM PRN ×2 (13:18→13:37)
[2018-10-11] MEDS ORDERED: Promethazine HCl 25 MG/ML VIAL SLOW IVP PRN ×2 (13:18→13:37)
[2018-10-11] MEDS ORDERED: Ondansetron HCl/PF 4 MG/2 ML Vial IVP PRN ×2 (13:18→13:37)
[2018-10-11] MEDS ORDERED: PROPOFOL 20 ML ONE (13:24)
[2018-10-11] MEDS: Gabapentin 300 MG CAP PO SCH ×3 (14:19→20:18)
[2018-10-11] MEDS: Multivit, Therapeutic 1 TAB PO SCH (14:48)
[2018-10-11] MEDS: Isosorbide Dinitrate 5 MG TAB PO SCH ×2 (14:48→20:18)
[2018-10-11] MEDS: Polyethylene Glycol 3350 17 GM Packet PO SCH (14:48)
[2018-10-11] MEDS: traMADol HCl 50 MG TAB PO PRN ×2 (14:48→20:17)
[2018-10-11] MEDS: predniSONE 5 MG TAB PO SCH (14:50)
[2018-10-11] MEDS: Lubiprostone 24 MCG CAP PO SCH ×2 (14:50→14:51)
[2018-10-11] MEDS ORDERED: PROPOFOL 200 MG/20 ML VIAL ONE (14:50)
[2018-10-11] MEDS: Metolazone 5 MG TAB PO SCH (14:50)
[2018-10-11] MEDS: Aspirin 81 mg Enteric Coated Tablet PO SCH (14:57)
--- NOTE | 2018-10-11 15:36 | OP ---
DATE OF PROCEDURE: 10/05/2018 PREOPERATIVE DIAGNOSES: Osteomyelitis and cellulitis of left fourth digit. POSTOPERATIVE DIAGNOSES: Osteomyelitis and cellulitis of left fourth digit. PROCEDURE PERFORMED: Amputation of left fourth digit at the metatarsophalangeal joint. ESTIMATED BLOOD LOSS: Less than 50 mL. HEMOSTASIS: None used. ANESTHESIA: MAC with local. PATHOLOGY REPORT: Phalanx exposed distally on the digit. Culture and sensitivity and Gram stain obtained. COMPLICATIONS: None. Job ID: [id number]
--- NOTE | 2018-10-11 17:28 | OP ---
DATE OF PROCEDURE: 10/11/2018 SUBJECTIVE: The patient was on a direct admit to the hospital last night. The patient states she has had some discomfort in her left fourth toe (only toe remaining on left foot). She states her home nurse looked at it last Wednesday, and it was fine. The following day, it had significant darkening to it. She apparently only wanted to see me, and I was out until today. The patient was admitted for osteomyelitis and cellulitis of left foot wound, left fourth digit. PREOPERATIVE DIAGNOSIS: Osteomyelitis with cellulitis, left fourth digit. POSTOPERATIVE DIAGNOSIS: Osteomyelitis with cellulitis, left fourth digit. PROCEDURE PERFORMED: Left fourth digit amputation at the metatarsophalangeal joint. HEMOSTASIS: No hemostasis utilized. ANESTHESIA: MAC with local. ESTIMATED BLOOD LOSS: Less than 50 mL. HAND I TUBE BENDER: No surgeon's assistant. DESCRIPTION OF PROCEDURE: The patient was taken to the operating room, placed on the operating room table in supine position. After she was made comfortable and sedation was achieved, 5 mL of 0.5% plain Marcaine was used to block the digit. Next, the distal phalanx that was exposed was removed with the bone forceps. Next, the left lower extremity was scrubbed and draped in usual surgical manner. Attention was directed to the left fourth digit. A Hibiclens-soaked Raytec was clamped over the digit and was used to manipulate the digit. A fish-mouth incision was made from dorsal medial to lateral to bone. Next, the soft tissues were dissected free at the base of the proximal phalanx, and the digit was removed. Culture and sensitivity with Gram stain were performed at the wound of the foot. At the end of the case, culture and sensitivity and Gram stain were done on the digit. copious lavage was performed to the wound. The extensor and flexor tendons were clamped and pulled distally and transected. The tissues remaining were healthy in appearance, and good bleeding noted. After lavage, reapproximation of the skin flaps was performed using 3-0 nylon suture. Capillary refilling time to the skin flaps was instant after closure. Dressings were applied consisting of Xeroform gauze, 4x4 gauze, Estela, and an Pedro Pablo bandage. The patient was fitted with a postoperative shoe. The patient tolerated the anesthesia and procedure well. She left with vital signs stable to Recovery. The patient will be re-admitted to the hospital for IV antibiotics, gait training, and waiting on culture and sensitivities to identify what antibiotic to use. I will see the patient tomorrow at noon. Job ID: [id number]
[2018-10-11] MEDS: Potassium Chloride 20 MEQ TAB PO SCH (17:47)
[2018-10-11] MEDS: Insulin Glargine 30 UNITS in Pre-Filled Syringe 1 EACH SC SCH (17:48)
[2018-10-11] MEDS: Nystatin Cream 30 GM TUBE TOP SCH ×3 (17:48→20:18)
--- NOTE | 2018-10-11 20:08 | PDOC.PN ---
- Subjective Encounter Start Date: 10/11/18 Encounter Start Time: 19:40 Subjective: Patient had surgery earlier today. Only chronic pain problems of -: neck, left shoulder, and right head bothering her. Takes pain meds -: round the clock at home for these. Asking for xray of left shoulder. Hx of non-traumatic fracture of left scapula found on previous hospitalization and patient thinks hurting bad again so would like repeat x-ray to see how it is doing. - Objective Resuscitation Status - Order Detail: 10/10/18 18:13 Resuscitation Status Routine Resuscitation Status: FULL: Full Resuscitation Discussed with: Patient Vital Signs & Weight: Vital Signs (12 hours) Temp Pulse Resp BP Pulse Ox 10/11/18 17:00 76 16 121/66 10/11/18 14:30 97.6 F 82 16 157/62 H 95 Weight Admit Weight 150 lb Weight 150 lb I&O: 10/10/18 10/11/18 10/12/18 06:59 06:59 06:59 Intake Total 910 Balance 910 Result Diagrams: 10/11/18 04:01 10/11/18 04:01 Additional Labs: Accuchecks 10/11/18 10/11/18 10/11/18 15:48 12:13 11:34 POC Glucose 129 H 105 85 10/11/18 10/10/18 05:57 20:51 POC Glucose 154 H 186 H Phys Exam - Physical Examination Constitutional: NAD HEENT: moist MMs Respiratory: no wheezing, no rales, no rhonchi Cardiovascular: RRR, no significant murmur Gastrointestinal: soft, positive bowel sounds left toe amputation site with dressing c/d/i, left scapula with multiple trigger-points Neurological: non-focal, moves all 4 limbs Psychiatric: normal affect, A&O x 3 Dx/Plan (1) 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 transplanted heart: [place] heart Associated angina: without angina Qualified Code(s): I25.10 - Atherosclerotic heart disease of [place] coronary artery without angina pectoris Comment: on ASA,statin,BB (5) Dyslipidemia Code(s): E78.5 - HYPERLIPIDEMIA, UNSPECIFIED Status: Chronic Comment: on statin (6) GERD (gastroesophageal reflux disease) Code(s): K21.9 - GASTRO-ESOPHAGEAL REFLUX DISEASE WITHOUT ESOPHAGITIS Status: Chronic Qualifiers: Esophagitis presence: esophagitis presence not specified Qualified Code(s) : K21.9 - Gastro-esophageal reflux disease without esophagitis Comment: on PPI (7) Hypertension Code(s): I10 - ESSENTIAL (PRIMARY) HYPERTENSION Status: Chronic Qualifiers: Hypertension type: essential hypertension Qualified Code(s): I10 - Essential (primary) hypertension Comment: controlled (8) Hypothyroidism Code(s): E03.9 - HYPOTHYROIDISM, UNSPECIFIED Status: Chronic Qualifiers: Comment: continue synthroid (9) Paroxysmal atrial fibrillation Code(s): I48.0 - PAROXYSMAL ATRIAL FIBRILLATION Status: Chronic Comment: on Amiodarone (10) Severe aortic stenosis Code(s): I35.0 - NONRHEUMATIC AORTIC (VALVE) STENOSIS Status: Chronic Comment: hopefully can get foot infection under control to allow valve replacement in a couple weeks as scheduled - Plan cont current plan of care, continue antibiotics, PT/OT possibly home tomorrow if ok with Podiatry and no need for further -: surgery * . - Discharge Day Encounter end time: 20:00
[2018-10-11] MEDS: Atorvastatin Calcium 10 MG TAB PO SCH (20:18)
[2018-10-11] MEDS: Vancomycin HCl 750 MG in Sodium Chloride 0.9% 250 ML 250 ML IVPB SCH (20:19)
[2018-10-11] MEDS: HumaLOG 300 UNITS/3 ML VIAL SC PRN (20:37)
--- NOTE | 2018-10-11 20:44 | RAD ---
LEFT SCAPULA 10/11/18 INDICATION: Injury, pain. FINDINGS: There is mild displacement with regard to laterally located mid left rib fractures. There is also mil d cortical irregularity at the body of the scapula. No obvious dislocation of the glenohumeral joint or left AC joint. Granulomatous calcification projects at the lower left chest laterally. IMPRESSION: 1. Mildly displaced scapular body fracture is suspected. 2. Multiple mildly displaced left rib fracture deformities. Consider CT chest as warranted given the multiple sites of fracture to exclude underlying posttraumatic sequela. POS: ANNE-MARIE
[2018-10-11] MEDS: Lorazepam 1 MG TAB PO PRN (22:50)
[2018-10-11] MEDS: Ondansetron PF 4 MG/2 ML Vial IVP PRN (23:32)
[2018-10-12] MEDS: Piperacillin/Tazobactam 3.375 GM in Sodium Chloride 0.9% 100 ML IVPB SCH ×3 (05:11→17:43)
[2018-10-12] MEDS: Torsemide 20 MG TAB PO SCH (05:11)
[2018-10-12] MEDS: Levothyroxine Sodium 25 MCG TAB PO SCH (05:14)
[2018-10-12] MEDS: Levothyroxine Sodium 112 MCG TAB PO SCH (05:14)
[2018-10-12] MEDS: HumaLOG 300 UNITS/3 ML VIAL SC PRN ×3 (05:22→22:00)
[2018-10-12] MEDS: traMADol HCl 50 MG TAB PO PRN ×3 (06:11→20:16)
[2018-10-12] MEDS: Acetaminophen 325 MG TAB PO PRN ×3 (06:12→17:43)
[2018-10-12] MEDS: Ondansetron PF 4 MG/2 ML Vial IVP PRN (09:16)
--- NOTE | 2018-10-12 09:35 | PDOC.PN ---
- Subjective Encounter Start Date: 10/12/18 Encounter Start Time: 11:10 Subjective: Patient with nausea and vomiting, no BM for 4 days now. Patient -: requested Dr. Rai see about her recurrent constipation. Consult placed. -: Chronic pain from left scapula. CT scan done this AM. - Objective Resuscitation Status - Order Detail: 10/10/18 18:13 Resuscitation Status Routine Resuscitation Status: FULL: Full Resuscitation Discussed with: Patient MAR Reviewed: Yes Vital Signs & Weight: Vital Signs (12 hours) Temp Pulse Resp BP Pulse Ox 10/12/18 08:00 98.0 F 69 12 138/71 95 10/12/18 00:47 98 10/11/18 23:47 98.1 F 77 20 113/68 98 10/11/18 22:02 98.3 F 87 22 H 153/76 H 96 Weight Admit Weight 150 lb Weight 150 lb I&O: 10/11/18 10/12/18 10/13/18 06:59 06:59 06:59 Intake Total 910 810 Balance 910 810 Result Diagrams: 10/11/18 04:01 10/11/18 04:01 Additional Labs: Accuchecks 10/12/18 10/11/18 10/11/18 05:23 20:37 15:48 POC Glucose 215 H 286 H 129 H 10/11/18 10/11/18 12:13 11:34 POC Glucose 105 85 Phys Exam - Physical Examination Constitutional: NAD HEENT: moist MMs Respiratory: no wheezing, no rales, no rhonchi Cardiovascular: RRR 3/6 holosystolic murmur Gastrointestinal: soft, positive bowel sounds distended, mild TTP diffusely, no guarding surgical dressing in place left foot with min blood Psychiatric: normal affect, A&O x 3 Dx/Plan (1) 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 Ochoa amputated today, x-ray negative for bony lesions, continue IV abx while in hospital (2) DM type 2 (diabetes mellitus, type 2) Status: Chronic Qualifiers: Diabetes mellitus retirement insulin use: with retirement use Comment: half dose of Lantus day of surgery, increase back to full dose after that (3) CKD (chronic kidney disease), stage III Code(s): N18.3 - CHRONIC KIDNEY DISEASE, STAGE 3 (MODERATE) Status: Chronic Comment: jumped a bit today, will monitor (4) Coronary artery disease Code(s): I25.10 - ATHSCL HEART DISEASE OF [place] CORONARY ARTERY W/O ANG PCTRS Status: Chronic Qualifiers: Coronary Disease-Associated Artery/Lesion type: [place] artery [place] vs. transplanted heart: [place] heart Associated angina: without angina Qualified Code(s): I25.10 - Atherosclerotic heart disease of [place] coronary artery without angina pectoris Comment: on ASA,statin,BB (5) Dyslipidemia Code(s): E78.5 - HYPERLIPIDEMIA, UNSPECIFIED Status: Chronic Comment: on statin (6) GERD (gastroesophageal reflux disease) Code(s): K21.9 - GASTRO-ESOPHAGEAL REFLUX DISEASE WITHOUT ESOPHAGITIS Status: Chronic Qualifiers: Esophagitis presence: esophagitis presence not specified Qualified Code(s) : K21.9 - Gastro-esophageal reflux disease without esophagitis Comment: on PPI (7) Hypertension Code(s): I10 - ESSENTIAL (PRIMARY) HYPERTENSION Status: Chronic Qualifiers: Hypertension type: essential hypertension Qualified Code(s): I10 - Essential (primary) hypertension Comment: controlled (8) Hypothyroidism Code(s): E03.9 - HYPOTHYROIDISM, UNSPECIFIED Status: Chronic Qualifiers: Comment: continue synthroid (9) Paroxysmal atrial fibrillation Code(s): I48.0 - PAROXYSMAL ATRIAL FIBRILLATION Status: Chronic Comment: on Amiodarone (10) Severe aortic stenosis Code(s): I35.0 - NONRHEUMATIC AORTIC (VALVE) STENOSIS Status: Chronic Comment: hopefully can get foot infection under control to allow valve replacement in a couple weeks as scheduled (11) Left scapula fracture Code(s): S42.102A - FRACTURE OF UNSP PART OF SCAPULA, LEFT SHOULDER, INIT Status: Chronic Comment: present on admission 02/[address] Mitchell, conservative care and was to follow up in his clinic. Still with sig pain and worse recently. Will CT. If stable can f/u in Dr. Mitchell's clinic. (12) Constipation Code(s): K59.00 - CONSTIPATION, UNSPECIFIED Status: Acute Comment: acute on chronic, in setting of chronic pain meds, Dr. Andres consulted, naloxegol added - Plan cont current plan of care, continue antibiotics, PT/OT awaiting surgical cultures * . - Discharge Day Encounter end time: 11:25
[2018-10-12] MEDS: Gabapentin 300 MG CAP PO SCH ×3 (11:12→20:17)
[2018-10-12] MEDS: predniSONE 5 MG TAB PO SCH (11:12)
[2018-10-12] MEDS: Isosorbide Dinitrate 5 MG TAB PO SCH ×2 (11:15→20:17)
[2018-10-12] MEDS: Potassium Chloride 20 MEQ TAB PO SCH ×2 (11:16→16:17)
[2018-10-12] MEDS: Aspirin 81 mg Enteric Coated Tablet PO SCH (11:16)
[2018-10-12] MEDS: Metolazone 5 MG TAB PO SCH (11:17)
[2018-10-12] MEDS: Multivit, Therapeutic 1 TAB PO SCH (11:17)
[2018-10-12] MEDS: Nystatin Cream 30 GM TUBE TOP SCH ×4 (11:17→20:24)
[2018-10-12] MEDS: Lubiprostone 24 MCG CAP PO SCH ×2 (11:17→16:17)
[2018-10-12] MEDS: Insulin Glargine 30 UNITS in Pre-Filled Syringe 1 EACH SC SCH (11:17)
[2018-10-12] MEDS: Polyethylene Glycol 3350 17 GM Packet PO SCH ×2 (11:22→20:18)
[2018-10-12] MEDS: Morphine 4 MG/ML VIAL SLOW IVP PRN ×2 (11:33→21:59)
--- NOTE | 2018-10-12 13:43 | CT ---
CT CHEST: 10/12/2018 HISTORY: Fall three to four weeks ago. Fractures noted on prior radiographs of the left scapula. COMPARISON: CT thoracic spine from 12/09/2017. TECHNIQUE: Axial CT imaging obtained at 5 mm intervals, from the thoracic inlet through the upper abdomen, witho ut contrast. Coronal and sagittal reformatted imaging obtained. FINDINGS: Lack of contrast media limits assessment of the vascular structures, the imaged viscera, and for lymp hadenopathy. Limited assessment of the upper abdomen demonstrates cholecystectomy clips, atherosclerotic calcifica tion of the abdominal aorta and its branches, and splenic granulomata. There is extensive atherosclerotic calcification of the coronary arteries. There is no pleural, sukhdeep cardial, or mediastinal fluid evident. Limited assessment for lymphadenopathy appears grossly unremarkable. No pneumothorax is evident on either side. There is a left-sided granuloma within the lower lobe, on image 28. There is mild increased linear d ensity in the bilateral lung bases. Review of the osseous structures demonstrates numerous bilateral old rib fractures. This includes th e right 3rd, 4th, 5th, and 6th ribs. In addition, there are old left-sided rib fractures, involving the 3rd, 4th, 5th, and 6th ribs. There is mild irregularity involving the scapular body on the left, which could represent a subtle old, nondisplaced fracture. There is an old left-sided 11th rib frac ture as well. There are numerous thoracic spine fractures. There are chronic compression fractures involving the T 3, T4, and T5 vertebral bodies, with prominent anterior loss of vertebral body height and associated focal kyphosis at the T3 through T5 levels. When compared to the study performed on 12/09/2017, ther e is no significant interval change in these fractures. There is a severe burst fracture with retrop ulsion of osseous fragments into the central canal at the L1 level, stable when compared to the prior examination, as well. At the T8 level, there is a new fracture involving the anterior cortex and inferior endplate of T8, w ith no significant loss of vertebral body height. Of note, there is no significant soft tissue swell ing involving the adjacent paravertebral soft tissues, suggesting that this is a new subacute fractur e. There is an old sternal fracture, with contour irregularity noted. IMPRESSION: New T8 fracture involving the anterior cortex and inferior endplate with no loss of vertebral body he ight and no significant soft tissue swelling. This suggest a subacute new T8 fracture, especially gi yohana the patient's reported history of a fall 3-4 weeks ago. Evaluation for edema within this fractur e could be performed via MRI. There are numerous old fracture deformities noted, as detailed above. CODE T POS: MAGY
--- NOTE | 2018-10-12 13:48 | PRG ---
DATE OF SERVICE: 10/12/2018 SUBJECTIVE: Ms. Ivory is more short of breath today. She is back on oxygen. She has no chest pain. OBJECTIVE: VITAL SIGNS: Her blood pressure is 122/74 and pulse 80 and it is regular. LUNGS: Clear anteriorly and posteriorly. CARDIAC: There is a high-pitched aortic stenosis murmur. ABDOMEN: Soft and nontender. EXTREMITIES: There is moderate edema. ASSESSMENT: 1. Congestive heart failure, diastolic. 2. Severe aortic stenosis. 3. Renal failure, stage 4. Estimated GFR is 25. 4. Recent toe removal for osteomyelitis. 5. Probably has peripheral vascular disease below the knee bilaterally. 6. Multiple vertebral fractures as outlined in the CT scan, accounting for severe pain in back. PLAN: 1. We will give her intravenous Lasix. 2. Continue antibiotics. 3. Hopefully, will eventually be able to get transcutaneous aortic valve replacement, but the recurrent osteomyelitis is certainly a problem. She is going to have to be certain we do not have recurrent residual osteomyelitis prior to artificial valve placement. We will continue to follow with you. Job ID: [id number]
[2018-10-12] MEDS ORDERED: Furosemide 100 MG/10 ML VIAL SLOW IVP SCH (14:00)
[2018-10-12] MEDS: Ondansetron PF 4 MG/2 ML Vial IVP SCH ×2 (14:39→20:21)
--- NOTE | 2018-10-12 15:13 | PRG ---
DATE OF SERVICE: 10/12/2018 SUBJECTIVE FINDINGS: On postoperative day 1, the patient is seen sitting in the chair at bedside. The patient is having some GI distress, which is being addressed by the admitting physician. The patient has had no postoperative foot pain complaints. The patient states her foot feels well, but she is more concentrated on her GI distress. OBJECTIVE FINDINGS: Bandages are dry, clean, and intact. No cellulitis noted of the foot. Culture and sensitivity; the clean culture labelled foot shows no bacteria on the Gram stain. We will wait for anything to culture. The dirty culture from the digit shows some bacteria present on the Gram stain, few gram-positive cocci, and some gram-negative rods. ASSESSMENT AND PLAN: 1. The patient from Podiatric standpoint is doing very well. 2. It is my hope that the culture will show oral antibiotics for discharge would be adequate. If the patient is still inhouse on Wednesday, I will come around noon and change the bandages. If she is discharged, she will follow up with me on Wednesday for bandage change and examination of the surgical site. Job ID: [id number]
[2018-10-12] MEDS: Atorvastatin Calcium 10 MG TAB PO SCH (20:17)
[2018-10-12] MEDS: Lorazepam 1 MG TAB PO PRN (20:18)
[2018-10-12 20:49] LABS: Vancomycin, Trough 8.9 ug/mL
--- NOTE | 2018-10-12 21:35 | CON ---
DATE OF CONSULTATION: 10/12/2018 REASON FOR CONSULTATION: Constipation, nausea, and vomiting. CONSULTING PHYSICIAN: Michele Perez MD HISTORY OF PRESENT ILLNESS: The patient is an 82-year-old female with past medical history of diabetes, coronary artery disease; peripheral vascular disease, status post multiple amputations of the feet; morbid obesity, hypothyroidism, hypertension, chronic kidney disease stage 4, atrial fibrillation, [id number] aortic stenosis, as well as I and D of the left thigh abscess initially presenting with osteomyelitis of the left foot, now with increased nausea, vomiting, abdominal pain, and constipation. The patient was originally admitted on 07/10/2019 after being seen by her outpatient profiler operator in the clinic and noted to have exposed bone of the left fourth toe as well as the infectious changes surrounding the toe concerning for osteomyelitis. She was ultimately transferred to [facility], where she was admitted with plans for IV antibiotics and amputation of the toe in question. However, shortly before admission, she had already been experiencing increased constipation with her last bowel movement approximately 4 to 5 days ago. When she did have her last bowel movement, it was consistent of more semi-solid to liquid bowel movements, but then no further bowel movements after that. She did have some mildly increased right-sided abdominal pain after cessation of her bowel movements that was associated with decreased appetite, for which she decreased her oral intake and any food intake as well. She has been able to tolerate water to a certain modicum/degree, but has otherwise been unable to tolerate solid food over the last 12 to 24 hours. She currently denies any fevers, chills, hematemesis, melena, hematochezia, dysphagia, or odynophagia. Of note, the patient has been hospitalized on multiple occasions over the last year for various reasons and during majority of these admissions, she has been having significant constipation that was shortly followed by nausea and vomiting. She responded well to more medical management while inpatient and with increased frequency of bowel movements, her nausea and vomiting resolved. REVIEW OF SYSTEMS: A 10-category review of systems was obtained with all responses negative except for the pertinent positives as listed in the HPI. PAST MEDICAL HISTORY: As per HPI. PAST SURGICAL HISTORY: Cholecystectomy, multiple amputations of the left foot, appendectomy, hysterectomy, and bilateral cataract surgery. FAMILY HISTORY: She endorses a family history of colon cancer with her son, who was diagnosed in his mid 40s from colon cancer. SOCIAL HISTORY: Denies any tobacco, alcohol, or illicit drug use. OUTPATIENT MEDICATIONS: Reviewed. ALLERGIES: HYDROCODONE. PHYSICAL EXAMINATION: VITAL SIGNS: Temperature 97.6, pulse 82, blood pressure 122/74, respiratory rate 20, and saturating 100% on 2 L nasal cannula. GENERAL: The patient is lying in bed, in no acute distress. Alert and oriented x4. HEENT: Neck is supple. No JVD or scleral icterus noted. Normocephalic, atraumatic. CARDIOVASCULAR: Regular rate and rhythm with a loud 4 to 5/6 systolic high-pitched systolic murmur best heard at the right upper sternal border, consistent with her critical aortic stenosis. RESPIRATORY: Clear to auscultation bilaterally. ABDOMEN: Hypoactive bowel sounds. Nondistended, but tender to palpation in the right upper quadrant and right mid abdomen. EXTREMITIES: Trace bilateral extremity edema extending to mid maguire bilaterally. No clubbing or cyanosis. LABORATORY DATA: CBC with a white blood cell count of 10.2, hemoglobin 9.8, hematocrit 32.9, and platelets 420. Chemistry with a sodium of 140, potassium of 4, chloride 98, CO2 of 31, BUN 39, creatinine 1.93, and glucose 151. IMAGING DATA: CT of the chest was obtained on 10/12/2018, which showed a new T8 fracture involving the anterior cortex and inferior endplate with no loss of vertebral height. There were also numerous old fracture deformities within the spine and ribs. There was a limited assessment for lymphadenopathy, but grossly appeared unremarkable and with no evidence of pneumothorax on either left or right side. However, there was a left-sided granuloma within the left lower lobe with mild increased linear density in the bilateral lower lung bases. ASSESSMENT AND PLAN: The patient is an 82-year-old female with past medical history of diabetes, coronary artery disease, peripheral vascular disease, morbid obesity, hypothyroidism, hypertension, chronic kidney disease stage 4, atrial fibrillation, and severe aortic stenosis, presenting with increased nausea, vomiting, and abdominal pain secondary to increased constipation. Abdominal pain/constipation. The patient has had multiple hospitalizations for increased right upper quadrant/right mid abdominal pain characterized as a cramping type sensation that will sometimes radiate to the periumbilical region. She does carry a diagnosis of significant constipation, most likely due to chronic narcotic use, which could be further exacerbation during this hospitalization due to amputation of the left fourth toe and placed her on tramadol. She also has some evidence of a possible functional gastroparesis type picture with chronic narcotic use in the past, which could further lead itself toward increased nausea, vomiting and/or constipation. With the lack of bowel movements over the last 3 to 4 days, she had been having this increased abdominal pain, which again I think is consistent more with constipation and would respond well to laxatives and reversal of opioid effects on the gut. Recommendations; 1. Would continue lubiprostone 24 mcg b.i.d. as well as MiraLAX b.i.d. as part of her bowel regimen while on chronic opiate use. 2. Would place the patient on a lower fiber diet given the possibility of gastroparesis further compounding her abdominal pain and/or nausea vomiting. 3. Would attempt to minimize any narcotic administration given her already existing constipation, which could be further contributing to her abdominal pain. 4. I will start the patient on Naloxegol 25 mg daily in attempt to reverse the narcotic effects on the gut. Nausea/vomiting. The patient has a history of chronic dysphagia characterized as a sensation of food getting stuck in the midchest, would occur with both solid and liquid foods. Her dysphagia has improved somewhat, but she is now experiencing increased nausea and vomiting, which I think may be more secondary to her constipation rather than her dysphagia. With regular PPI use as an outpatient, she had significant improvement of her dysphagia as well as acid reflux type symptoms, which would be beneficial during this admission. In addition to maintaining more conservative measures for possible acid reflux contributing to the current nausea and vomiting, I would recommend the bowel regimen as outlined above. Recommendations; 1. Would continue pantoprazole 40 mg in the morning, 30 to 45 minutes before breakfast. 2. Would maintain standard anti-reflux precautions including maintaining an upright posture for at least 2 to 3 hours after ingestion of food. 3. Continue the lower fiber/low residue diet given the possibility of a functional gastroparesis. We will continue to follow. Please call with any questions. Job ID: [id number]
[2018-10-12] MEDS: Vancomycin HCl 750 MG in Sodium Chloride 0.9% 250 ML 250 ML IVPB SCH (22:00)
[2018-10-12] MEDS ORDERED: Vancomycin HCl 500 MG in Sodium Chloride 0.9% 100 ML IVPB SCH (23:45)
[2018-10-13] MEDS: Piperacillin/Tazobactam 3.375 GM in Sodium Chloride 0.9% 100 ML IVPB SCH ×5 (00:13→23:41)
[2018-10-13] MEDS: Acetaminophen 325 MG TAB PO PRN ×2 (01:00→08:59)
[2018-10-13] MEDS: traMADol HCl 50 MG TAB PO PRN ×2 (04:43→18:21)
[2018-10-13] MEDS: Levothyroxine Sodium 112 MCG TAB PO SCH (06:06)
[2018-10-13] MEDS: Levothyroxine Sodium 25 MCG TAB PO SCH (06:06)
[2018-10-13] MEDS: Furosemide 40 MG/4 ML VIAL SLOW IVP SCH ×2 (06:06→14:42)
[2018-10-13] MEDS: HumaLOG 300 UNITS/3 ML VIAL SC PRN ×3 (06:41→16:28)
[2018-10-13 08:36] LABS: Anion Gap 15 mmol/L (10-20); BUN (Urea Nitrogen) 30 mg/dL (9.8-20.1); Calc. Creatinine Clearance 31 mL/min (70-130); Carbon Dioxide 32 mmol/L (23-31); Chloride 98 mmol/L (98-107); Estimated GFR-MDRD 33; Glucose 187 mg/dL (83-110); Potassium 3.7 mmol/L (3.5-5.1); Sodium 141 mmol/L (136-145)
[2018-10-13] MEDS: Lubiprostone 24 MCG CAP PO SCH ×2 (08:55→17:53)
[2018-10-13] MEDS: Gabapentin 300 MG CAP PO SCH ×3 (08:55→19:57)
[2018-10-13] MEDS: predniSONE 5 MG TAB PO SCH (08:55)
[2018-10-13] MEDS: Aspirin 81 mg Enteric Coated Tablet PO SCH (08:55)
[2018-10-13] MEDS: Multivit, Therapeutic 1 TAB PO SCH (08:55)
[2018-10-13] MEDS: Potassium Chloride 20 MEQ TAB PO SCH ×2 (08:55→17:49)
[2018-10-13] MEDS: Metolazone 5 MG TAB PO SCH (08:55)
[2018-10-13] MEDS: Ondansetron PF 4 MG/2 ML Vial IVP SCH ×3 (08:56→19:57)
[2018-10-13] MEDS: Nystatin Cream 30 GM TUBE TOP SCH ×4 (08:56→20:17)
[2018-10-13] MEDS: Polyethylene Glycol 3350 17 GM Packet PO SCH ×2 (08:56→19:57)
[2018-10-13] MEDS: Insulin Glargine 30 UNITS in Pre-Filled Syringe 1 EACH SC SCH (08:56)
[2018-10-13] MEDS: Isosorbide Dinitrate 5 MG TAB PO SCH ×2 (09:00→19:58)
--- NOTE | 2018-10-13 09:18 | PDOC.PN ---
- Subjective Encounter Start Date: 10/13/18 Encounter Start Time: 11:00 Subjective: Patient with persistent pain in neck and left scapula. Says only -: Fentanyl helps. Starting to pass stool well. - Objective Resuscitation Status - Order Detail: 10/10/18 18:13 Resuscitation Status Routine Resuscitation Status: FULL: Full Resuscitation Discussed with: Zakiya COLEMAN Reviewed: Yes Vital Signs & Weight: Vital Signs (12 hours) Temp Pulse Resp BP Pulse Ox 10/13/18 08:00 98.4 F 79 18 133/72 97 10/13/18 04:00 98.2 F 88 17 146/57 H 92 L 10/13/18 00:00 98.4 F 91 17 132/67 95 Weight Admit Weight 150 lb Weight 150 lb I&O: 10/12/18 10/13/18 10/14/18 06:59 06:59 06:59 Intake Total 810 1160 Balance 810 1160 Result Diagrams: 10/11/18 04:01 10/13/18 08:01 Additional Labs: Accuchecks 10/13/18 10/13/18 10/12/18 06:00 02:55 20:22 POC Glucose 171 H 214 H 270 H 10/12/18 10/12/18 15:25 11:53 POC Glucose 339 H 174 H Phys Exam - Physical Examination Constitutional: NAD HEENT: moist MMs Respiratory: no wheezing, no rales, no rhonchi Cardiovascular: RRR Gastrointestinal: soft, non-tender, positive bowel sounds left foot dressing c/d/i Neurological: moves all 4 limbs Psychiatric: normal affect, A&O x 3 Dx/Plan (1) 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 Ochoa amputated today, x-ray negative for bony lesions, continue IV abx while in hospital, d/c on oral abx once wound culture back (2) DM type 2 (diabetes mellitus, type 2) Status: Chronic Qualifiers: Diabetes mellitus senior care insulin use: with rn long term care use Comment: half dose of Lantus day of surgery, increase back to full dose after that (3) CKD (chronic kidney disease), stage III Code(s): N18.3 - CHRONIC KIDNEY DISEASE, STAGE 3 (MODERATE) Status: Chronic Comment: jumped a bit today, will monitor (4) Coronary artery disease Code(s): I25.10 - ATHSCL HEART DISEASE OF [place] CORONARY ARTERY W/O ANG PCTRS Status: Chronic Qualifiers: Coronary Disease-Associated Artery/Lesion type: [place] artery [place] vs. transplanted heart: [place] heart Associated angina: without angina Qualified Code(s): I25.10 - Atherosclerotic heart disease of [place] coronary artery without angina pectoris Comment: on ASA,statin,BB (5) Dyslipidemia Code(s): E78.5 - HYPERLIPIDEMIA, UNSPECIFIED Status: Chronic Comment: on statin (6) GERD (gastroesophageal reflux disease) Code(s): K21.9 - GASTRO-ESOPHAGEAL REFLUX DISEASE WITHOUT ESOPHAGITIS Status: Chronic Qualifiers: Esophagitis presence: esophagitis presence not specified Qualified Code(s) : K21.9 - Gastro-esophageal reflux disease without esophagitis Comment: on PPI (7) Hypertension Code(s): I10 - ESSENTIAL (PRIMARY) HYPERTENSION Status: Chronic Qualifiers: Hypertension type: essential hypertension Qualified Code(s): I10 - Essential (primary) hypertension Comment: controlled (8) Hypothyroidism Code(s): E03.9 - HYPOTHYROIDISM, UNSPECIFIED Status: Chronic Qualifiers: Comment: continue synthroid (9) Paroxysmal atrial fibrillation Code(s): I48.0 - PAROXYSMAL ATRIAL FIBRILLATION Status: Chronic Comment: on Amiodarone (10) Severe aortic stenosis Code(s): I35.0 - NONRHEUMATIC AORTIC (VALVE) STENOSIS Status: Chronic Comment: hopefully can get foot infection under control to allow valve replacement in a couple weeks as scheduled (11) Left scapula fracture Code(s): S42.102A - FRACTURE OF UNSP PART OF SCAPULA, LEFT SHOULDER, INIT Status: Chronic Comment: present on admission 02/[address] Mitchell, conservative care and was to follow up in his clinic. Still with sig pain and worse recently. Will CT. If stable can f/u in Dr. Mitchell's clinic. (12) Constipation Code(s): K59.00 - CONSTIPATION, UNSPECIFIED Status: Acute Comment: acute on chronic, in setting of chronic pain meds, Dr. Andres consulted, naloxegol added - Plan cont current plan of care, continue antibiotics, PT/OT, DVT proph w/lovenox * . - Discharge Day Encounter end time: 11:10
[2018-10-13] MEDS: Morphine 4 MG/ML VIAL SLOW IVP PRN (10:02)
[2018-10-13] MEDS ORDERED: Enoxaparin Sodium 30 MG/0.3 ML SYRINGE SC SCH (10:30)
[2018-10-13] MEDS: Cyclobenzaprine 10 MG TAB PO PRN ×2 (11:43→19:57)
--- NOTE | 2018-10-13 13:01 | PRG ---
DATE OF SERVICE: 10/13/2018 SUBJECTIVE: Ms. Ivory is breathing better today. She is sitting up in the chair. OBJECTIVE: VITAL SIGNS: Blood pressure is 126/70, pulse 80. LUNGS: Clear. CARDIAC: There is a high-pitched aortic stenosis murmur as before. ABDOMEN: Soft and nontender. EXTREMITIES: Moderate edema. ASSESSMENT: 1. Osteomyelitis, status post removal of a toe. 2. Distal peripheral vascular disease. 3. Renal failure, improved, stage 3. 4. Severe aortic stenosis. PLAN: Continue antibiotics. Ultimately, I would like to send her for transcutaneous aortic valve replacement. So far the cultures are not positive from what I can tell. Job ID: [id number]
[2018-10-13] MEDS: Atorvastatin Calcium 10 MG TAB PO SCH (19:57)
[2018-10-13] MEDS: Vancomycin HCl 1.25 GM in Sodium Chloride 0.9% 250 ML 250 ML IVPB SCH (19:58)
--- NOTE | 2018-10-13 21:22 | PRG ---
DATE OF SERVICE: 10/13/2018 REASON FOR CONSULTATION: Constipation, nausea, vomiting. SUBJECTIVE: Today, the patient states she has continued to have mild nausea and vomiting with vomiting episode once this morning, but did not have any further episodes of vomiting later on this afternoon with scheduled administration of Zofran. With the addition of Naloxegol and MiraLAX, she has had approximately four semi-solid to liquid bowel movements today and states that her abdominal pain is improved from previous. She denies any episodes of GI bleeding with her increased stooling, nor did she endorse any hematemesis with her vomiting this morning. Currently, denies any fevers, chills, dysphagia, or odynophagia. OBJECTIVE: VITAL SIGNS: Temperature 98.2, pulse 85, blood pressure 163/83, respiratory rate 20, saturating 95% on 2 L nasal cannula. GENERAL: The patient was lying in bed, in no acute distress. Alert and oriented x4. CARDIOVASCULAR: Regular rate and rhythm with a loud 4 to 5/6 systolic high-pitched murmur. RESPIRATORY: Clear to auscultation bilaterally. ABDOMEN: Normoactive bowel sounds. Soft, nondistended, mild tenderness to palpation in the right upper quadrant and right mid abdomen. EXTREMITIES: Trace bilateral lower extremity edema. LABORATORY DATA: Chemistry with a sodium of 141, potassium 3.7, chloride 98, CO2 32, BUN 30, creatinine 1.52, glucose 187. IMAGING DATA: No current GI imaging is available for review. ASSESSMENT AND PLAN: The patient is an 82-year-old female with past medical history of diabetes, coronary artery disease, peripheral vascular disease, morbid obesity, hypothyroidism, hypertension, chronic kidney disease stage 4, atrial fibrillation, and severe aortic stenosis, presenting with increased nausea, vomiting, abdominal pain secondary to constipation. Abdominal pain/constipation. The patient has had multiple hospitalizations over the last year with increased right upper quadrant/right mid abdominal pain characterized as a cramping type sensation that will sometimes radiate to the periumbilical region. This has been secondary to increased narcotic administration during her hospitalizations due to a variety of different comorbidities. On admission, she had not had a bowel movement over the last 3 to 4 days further contributing to back up of stool, which I think was contributing to her abdominal pain and then nausea, vomiting with the administration of both MiraLAX and Naloxegol, she has had multiple bowel movements over the last 24 hours with improvement of her abdominal pain, nausea and vomiting. RECOMMENDATIONS: 1. Would continue lubiprostone 25 mcg twice daily, but decrease the MiraLAX to once daily as part of her bowel regimen while on chronic opiate use. 2. Would continue the patient on a lower fiber diet. 3. We would attempt to minimize any narcotic administration during this hospitalization. 4. Continue Naloxegol 25 mg daily. We will continue to follow. Please call with any questions. Job ID: [id number]
[2018-10-14] MEDS: Morphine 4 MG/ML VIAL SLOW IVP PRN ×2 (00:29→11:27)
[2018-10-14] MEDS: traMADol HCl 50 MG TAB PO PRN ×2 (05:37→14:06)
[2018-10-14] MEDS: Levothyroxine Sodium 112 MCG TAB PO SCH (05:37)
[2018-10-14] MEDS: Furosemide 40 MG/4 ML VIAL SLOW IVP SCH ×2 (05:37→14:06)
[2018-10-14] MEDS: Levothyroxine Sodium 25 MCG TAB PO SCH (05:37)
[2018-10-14] MEDS: Piperacillin/Tazobactam 3.375 GM in Sodium Chloride 0.9% 100 ML IVPB SCH ×4 (05:38→23:41)
[2018-10-14] MEDS: Potassium Chloride 20 MEQ TAB PO SCH ×2 (08:47→17:37)
[2018-10-14] MEDS: Multivit, Therapeutic 1 TAB PO SCH (08:47)
[2018-10-14] MEDS: Isosorbide Dinitrate 5 MG TAB PO SCH ×2 (08:47→21:44)
[2018-10-14] MEDS: Metolazone 5 MG TAB PO SCH (08:47)
[2018-10-14] MEDS: Cyclobenzaprine 10 MG TAB PO PRN ×2 (08:47→17:38)
[2018-10-14] MEDS: Aspirin 81 mg Enteric Coated Tablet PO SCH (08:47)
[2018-10-14] MEDS: Gabapentin 300 MG CAP PO SCH ×3 (08:48→21:43)
[2018-10-14] MEDS: Enoxaparin Sodium 30 MG/0.3 ML SYRINGE SC SCH (08:48)
[2018-10-14] MEDS: Lubiprostone 24 MCG CAP PO SCH ×2 (08:48→17:38)
[2018-10-14] MEDS: Insulin Glargine 30 UNITS in Pre-Filled Syringe 1 EACH SC SCH (08:48)
[2018-10-14] MEDS: Polyethylene Glycol 3350 17 GM Packet PO SCH (08:48)
[2018-10-14] MEDS: predniSONE 5 MG TAB PO SCH (08:48)
[2018-10-14] MEDS: Ondansetron PF 4 MG/2 ML Vial IVP SCH ×3 (08:48→21:43)
[2018-10-14] MEDS: Nystatin Cream 30 GM TUBE TOP SCH ×4 (08:49→21:44)
[2018-10-14] MEDS: Lidocaine 5% Patch TD SCH (08:49)
[2018-10-14] MEDS: Acetaminophen 325 MG TAB PO PRN ×2 (11:27→17:37)
--- NOTE | 2018-10-14 13:37 | PRG ---
DATE OF SERVICE: 10/14/2018 SUBJECTIVE: Ms. Ivory is breathing better. She is on intravenous furosemide twice a day. OBJECTIVE: VITAL SIGNS: Blood pressure 121/64, pulse 82. LUNGS: Clear. CARDIAC: Normal S1, normal S2. The aortic valve murmur is unchanged. ABDOMEN: Soft and nontender. EXTREMITIES: Exlb-eg-ntzumdls edema. ASSESSMENT: 1. Severe stenosis. 2. Recent surgery for ? osteomyelitis. It looks like it may be actually a soft tissue infection now. 3. We will go and order carotid Dopplers and pulmonary function test while she is here that have to be done prior to being scheduled for consultation in [place] for a possible transcutaneous aortic valve. Do that while she is here if possible. Job ID: [id number]
--- NOTE | 2018-10-14 16:12 | PDOC.PN ---
- Subjective Encounter Start Date: 10/14/18 Encounter Start Time: 16:10 Patient seen and examined, mild nausea and episodes of vomitting earlier this morning, no other issues and complaints. All questions answered. - Objective Resuscitation Status - Order Detail: 10/10/18 18:13 Resuscitation Status Routine Resuscitation Status: FULL: Full Resuscitation Discussed with: Patient Vital Signs & Weight: Vital Signs (12 hours) Temp Pulse Resp BP Pulse Ox 10/14/18 11:15 97.9 F 82 18 121/64 92 L 10/14/18 07:45 97.4 F L 75 21 H 136/58 L 100 Weight Admit Weight 150 lb Weight 150 lb I&O: 10/13/18 10/14/18 10/15/18 06:59 06:59 06:59 Intake Total 1160 2330 Balance 1160 2330 Result Diagrams: 10/11/18 04:01 10/13/18 08:01 Additional Labs: Accuchecks 10/14/18 10/14/18 10/13/18 11:10 05:44 20:39 POC Glucose 184 H 151 H 181 H Phys Exam - Physical Examination Constitutional: NAD HEENT: PERRLA, moist MMs, sclera anicteric Neck: no nodes, no JVD, supple Respiratory: no wheezing, no rales, no rhonchi Cardiovascular: RRR, no significant murmur, no rub Gastrointestinal: soft, non-tender, no distention Musculoskeletal: no edema, pulses present Dx/Plan (1) Nausea and vomiting Code(s): R11.2 - NAUSEA WITH VOMITING, UNSPECIFIED Status: Acute Comment: Improving, says she may be able to go home in a day or two. needs HH at time of discharge, pt refused SNU. (2) CKD (chronic kidney disease) stage 4, GFR 15-29 ml/min Code(s): N18.4 - CHRONIC KIDNEY DISEASE, STAGE 4 (SEVERE) Status: Chronic Comment: Improving (3) Coronary artery disease Code(s): I25.10 - ATHSCL HEART DISEASE OF [place] CORONARY ARTERY W/O ANG PCTRS Status: Chronic Qualifiers: Coronary Disease-Associated Artery/Lesion type: [place] artery [place] vs. transplanted heart: [place] heart Associated angina: without angina Qualified Code(s): I25.10 - Atherosclerotic heart disease of [place] coronary artery without angina pectoris Comment: on ASA,statin,BB (4) Dyslipidemia Code(s): E78.5 - HYPERLIPIDEMIA, UNSPECIFIED Status: Chronic Comment: on statin (5) GERD (gastroesophageal reflux disease) Code(s): K21.9 - GASTRO-ESOPHAGEAL REFLUX DISEASE WITHOUT ESOPHAGITIS Status: Chronic Qualifiers: Esophagitis presence: esophagitis presence not specified Qualified Code(s) : K21.9 - Gastro-esophageal reflux disease without esophagitis Comment: on PPI (6) Hypothyroidism Code(s): E03.9 - HYPOTHYROIDISM, UNSPECIFIED Status: Chronic Qualifiers: Comment: continue synthroid - Plan * DC plans in AM * patient appears opioid dependent * case d/w GI will adjust medications for now * if cultures negative in AM and patient feeling well, will likely DC in Am * case and plan d/w patient at length, she understood and agreed with this plan.
--- NOTE | 2018-10-14 17:41 | ULT ---
ULTRASOUND CAROTID DOPPLER STANDARD 10/14/18 HISTORY: Carotid bruit. COMPARISON: None. FINDINGS: Real time simmons scale and color evaluation of the extracranial carotid and vertebral arteries was perf ormed. No elevated peak systolic velocities in the internal carotid arteries. Antegrade flow both vertebral arteries. Moderate atherosclerotic plaque both carotid bulbs. IMPRESSION: No hemodynamically significant stenosis. POS: NATALIIA
[2018-10-14] MEDS: HumaLOG 300 UNITS/3 ML VIAL SC PRN ×2 (17:43→21:47)
[2018-10-14 21:09] LABS: Vancomycin, Trough 17.6 ug/mL
[2018-10-14] MEDS: Vancomycin HCl 1.25 GM in Sodium Chloride 0.9% 250 ML 250 ML IVPB SCH (21:43)
[2018-10-14] MEDS: Atorvastatin Calcium 10 MG TAB PO SCH (21:43)
[2018-10-14] MEDS: Lidocaine Patch Removal 1 EACH TOP SCH (21:44)
--- NOTE | 2018-10-14 23:35 | PRG ---
DATE OF SERVICE: REASON FOR CONSULTATION: Constipation, nausea, and vomiting. SUBJECTIVE: This morning, the patient states that she did have an episode of increased nausea and vomiting of a small amount of ingested material from breakfast and lunch, but upon inspection of the emesis bag, it occupied approximately 1 to 2 tablespoons of emesis. Today, she had also had approximately 2 bowel movements at the time of this interview with 4 bowel movements sustained yesterday and improvement of her abdominal pain in the process. Currently, she denies any fevers, chills, GI bleeding, dysphagia or odynophagia. OBJECTIVE: VITAL SIGNS: Temperature 97.7, pulse 78, blood pressure 147/76, respiratory rate 20, and saturating 96% on room air. GENERAL: The patient was sitting in chair at bedside, in no acute distress. Alert and oriented x4. CARDIOVASCULAR: Regular rate and rhythm with a 4-5/6 systolic high-pitched murmur. RESPIRATORY: Clear to auscultation bilaterally. ABDOMEN: Normoactive bowel sounds. Soft, nondistended, mild tenderness to palpation in the right upper quadrant. EXTREMITIES: Trace bilateral lower extremity edema. LABORATORY DATA: No current studies are available for review. IMAGING DATA: No current GI imaging is available for review. ASSESSMENT AND PLAN: The patient is an 82-year-old female with past medical history of diabetes, coronary artery disease, peripheral vascular disease, morbid obesity, hypothyroidism, hypertension, chronic kidney disease stage 4, atrial fibrillation and severe aortic stenosis, presenting with nausea, vomiting, abdominal pain secondary to constipation. Abdominal pain/nausea/vomiting/constipation. The patient has had multiple hospitalizations over the last year with increased right upper quadrant/right mid abdominal pain, that has usually been associated with nausea, vomiting and significant constipation. She does have a significant narcotic requirement as an outpatient and with any further increase while hospitalized, it has usually resulted in the above symptoms. In the past, she has responded well to administration of Amitiza, MiraLAX, Naloxegol and scheduled antiemetics, and currently she is responding well to the same regimen with improvement of her abdominal pain as well as her nausea and vomiting. However, she does continue to have minimal nausea and vomiting. With attempts to decrease her narcotic requirement, met with significant resistance. She is currently stating that she is having increased shoulder pain, which may be resulted to an increased dose of Naloxegol and the peripheral reversal of the effects of opiates. RECOMMENDATIONS: 1. I would continue lubiprostone 24 mcg twice daily, then continue MiraLAX one capsule daily as part of her bowel regimen while on opiate use. 2. Continue the patient on a lower fiber diet. 3. I would recommend attempting to minimize narcotic administration during this hospitalization. 4. We will decrease Naloxegol to 12.5 mg daily given the possibility of peripheral reversal of the effects of opiates resulting in increased general body pain. 5. We will continue to follow. Please call with any questions. Job ID: [id number]
[2018-10-15] MEDS: Lorazepam 1 MG TAB PO PRN ×2 (01:55→20:29)
[2018-10-15] MEDS: traMADol HCl 50 MG TAB PO PRN ×2 (03:51→20:29)
[2018-10-15] MEDS: Levothyroxine Sodium 112 MCG TAB PO SCH (06:29)
[2018-10-15] MEDS: Piperacillin/Tazobactam 3.375 GM in Sodium Chloride 0.9% 100 ML IVPB SCH ×4 (06:29→22:56)
[2018-10-15] MEDS: Levothyroxine Sodium 25 MCG TAB PO SCH (06:29)
[2018-10-15] MEDS: Furosemide 40 MG/4 ML VIAL SLOW IVP SCH ×2 (06:29→14:01)
[2018-10-15] MEDS: Acetaminophen 325 MG TAB PO PRN ×2 (06:40→20:27)
[2018-10-15] MEDS: Cyclobenzaprine 10 MG TAB PO PRN ×2 (06:41→20:27)
[2018-10-15] MEDS: HumaLOG 300 UNITS/3 ML VIAL SC PRN ×3 (07:20→22:31)
[2018-10-15] MEDS: Polyethylene Glycol 3350 17 GM Packet PO SCH (10:04)
[2018-10-15] MEDS: Insulin Glargine 30 UNITS in Pre-Filled Syringe 1 EACH SC SCH (10:04)
[2018-10-15] MEDS: Enoxaparin Sodium 30 MG/0.3 ML SYRINGE SC SCH (10:04)
[2018-10-15] MEDS: Ondansetron PF 4 MG/2 ML Vial IVP SCH ×3 (10:05→20:21)
[2018-10-15] MEDS: Lubiprostone 24 MCG CAP PO SCH ×2 (10:05→18:14)
[2018-10-15] MEDS: Nystatin Cream 30 GM TUBE TOP SCH ×4 (10:05→20:28)
[2018-10-15] MEDS: Lidocaine 5% Patch TD SCH (10:05)
[2018-10-15] MEDS: Gabapentin 300 MG CAP PO SCH ×3 (10:05→20:27)
[2018-10-15] MEDS: Metolazone 5 MG TAB PO SCH (10:05)
[2018-10-15] MEDS: Aspirin 81 mg Enteric Coated Tablet PO SCH (10:06)
[2018-10-15] MEDS: predniSONE 5 MG TAB PO SCH (10:06)
[2018-10-15] MEDS: Isosorbide Dinitrate 5 MG TAB PO SCH ×2 (10:06→20:28)
[2018-10-15] MEDS: Multivit, Therapeutic 1 TAB PO SCH (10:07)
[2018-10-15] MEDS: Potassium Chloride 20 MEQ TAB PO SCH ×2 (10:07→18:14)
--- NOTE | 2018-10-15 12:38 | PDOC.PN ---
- Subjective Encounter Start Date: 10/15/18 Encounter Start Time: 12:32 Patient seen and examined, no new issues or complaints, all questions answered. - Objective Resuscitation Status - Order Detail: 10/10/18 18:13 Resuscitation Status Routine Resuscitation Status: FULL: Full Resuscitation Discussed with: Patient Vital Signs & Weight: Vital Signs (12 hours) Temp Pulse Resp BP BP Pulse Ox 10/15/18 10:50 98.1 F 84 20 115/57 L 96 10/15/18 07:48 98.2 F 72 18 150/70 H 98 10/15/18 04:00 98.5 F 78 20 126/60 97 Weight Admit Weight 150 lb Weight 150 lb I&O: 10/14/18 10/15/18 10/16/18 06:59 06:59 06:59 Intake Total 2330 Balance 2330 Result Diagrams: 10/11/18 04:01 10/13/18 08:01 Additional Labs: Accuchecks 10/15/18 10/15/18 10/14/18 10:55 05:46 21:17 POC Glucose 156 H 212 H 226 H 10/14/18 15:53 POC Glucose 187 H Phys Exam - Physical Examination Constitutional: NAD HEENT: PERRLA, moist MMs, sclera anicteric Neck: no nodes, no JVD, supple Respiratory: no wheezing, no rales, no rhonchi Cardiovascular: RRR, no significant murmur, no rub Gastrointestinal: soft, non-tender, no distention Musculoskeletal: no edema, edema present (trace) Dx/Plan (1) Nausea and vomiting Code(s): R11.2 - NAUSEA WITH VOMITING, UNSPECIFIED Status: Acute Comment: Improving, says she may be able to go home in a day or two. needs HH at time of discharge, pt refused SNU. (2) CKD (chronic kidney disease) stage 4, GFR 15-29 ml/min Code(s): N18.4 - CHRONIC KIDNEY DISEASE, STAGE 4 (SEVERE) Status: Chronic Comment: Improving (3) Coronary artery disease Code(s): I25.10 - ATHSCL HEART DISEASE OF [place] CORONARY ARTERY W/O ANG PCTRS Status: Chronic Qualifiers: Coronary Disease-Associated Artery/Lesion type: [place] artery [place] vs. transplanted heart: [place] heart Associated angina: without angina Qualified Code(s): I25.10 - Atherosclerotic heart disease of [place] coronary artery without angina pectoris Comment: on ASA,statin,BB (4) Dyslipidemia Code(s): E78.5 - HYPERLIPIDEMIA, UNSPECIFIED Status: Chronic Comment: on statin (5) GERD (gastroesophageal reflux disease) Code(s): K21.9 - GASTRO-ESOPHAGEAL REFLUX DISEASE WITHOUT ESOPHAGITIS Status: Chronic Qualifiers: Esophagitis presence: esophagitis presence not specified Qualified Code(s) : K21.9 - Gastro-esophageal reflux disease without esophagitis Comment: on PPI (6) Hypothyroidism Code(s): E03.9 - HYPOTHYROIDISM, UNSPECIFIED Status: Chronic Qualifiers: Comment: continue synthroid - Plan * continue with current plan of care * no changes for now * DC plans in 24-48hrs if feeling better and cleared by subspecialists * case and plan d/w patient at length, she understood and agreed with this plan.
[2018-10-15] MEDS: Morphine 4 MG/ML VIAL SLOW IVP PRN (15:32)
[2018-10-15] MEDS: Atorvastatin Calcium 10 MG TAB PO SCH (20:27)
[2018-10-15] MEDS: Vancomycin HCl 1.25 GM in Sodium Chloride 0.9% 250 ML 250 ML IVPB SCH (20:29)
[2018-10-15] MEDS: Lidocaine Patch Removal 1 EACH TOP SCH (22:30)
--- NOTE | 2018-10-15 23:35 | PRG ---
DATE OF SERVICE: 10/15/2018 REASON FOR CONSULTATION: Constipation, nausea, and vomiting. SUBJECTIVE: Today, the patient states that she is feeling much better with no episodes of nausea or vomiting with intake of breakfast or lunch. She does continue to have some mild right upper quadrant abdominal aching, but also improved from previous. She has had approximately 2 to 3 bowel movements today, that were semi-solid in consistency. Currently, she denies any fevers, chills, GI bleeding, dysphagia, or odynophagia. OBJECTIVE: VITAL SIGNS: Temperature 97.2, pulse 90, blood pressure 146/70, respiratory rate 16, and saturating 100% on room air. GENERAL: The patient was sitting in a chair at bedside, in no acute distress. Alert and oriented x4. CARDIOVASCULAR: Regular rate and rhythm with a 4-5/6 systolic murmur. RESPIRATORY: Clear to auscultation bilaterally. ABDOMEN: Normoactive bowel sounds. Soft and nondistended. Mild tenderness to palpation of the right upper quadrant. EXTREMITIES: Trace bilateral lower extremity edema. LABORATORY DATA: No current studies are available for review. IMAGING DATA: No current GI imaging is available for review. ASSESSMENT AND PLAN: The patient is an 82-year-old female with past medical history of diabetes, coronary artery disease, peripheral vascular disease, morbid obesity, hypothyroidism, hypertension, chronic kidney disease stage 4, atrial fibrillation, and severe aortic stenosis, presenting with nausea, vomiting, and abdominal pain secondary to constipation. Abdominal pain/nausea/vomiting/constipation. The patient is presenting with multiple hospitalizations over the last year with increased right upper quadrant abdominal pain usually associated with increased constipation, most likely secondary to significant narcotic requirement both as an inpatient and outpatient. With the administration of Amitiza, MiraLAX, Naloxegol, and scheduled antiemetics, she is currently responding well with significant improvement during this hospitalization. Today, she has had resolution of her nausea, vomiting, and with her abdominal pain much better when compared to previous, she may be a candidate for discharge. RECOMMENDATIONS: 1. We would continue lubiprostone 24 mcg twice daily, MiraLAX one capsule daily, and Naloxegol 12.5 mg daily as part of her bowel regimen while on opiate use. 2. Continue the patient on a lower-fiber diet. 3. Attempt to minimize narcotic administration during this hospitalization. From a GI standpoint, the patient can be discharged. We will sign off at this time. Please call with any additional questions. Job ID: [id number]
[2018-10-16] MEDS: Piperacillin/Tazobactam 3.375 GM in Sodium Chloride 0.9% 100 ML IVPB SCH ×4 (05:37→23:14)
[2018-10-16] MEDS: Furosemide 40 MG/4 ML VIAL SLOW IVP SCH ×2 (05:52→14:05)
[2018-10-16] MEDS: Levothyroxine Sodium 112 MCG TAB PO SCH (05:52)
[2018-10-16] MEDS: Morphine 4 MG/ML VIAL SLOW IVP PRN ×3 (05:52→16:00)
[2018-10-16] MEDS: Levothyroxine Sodium 25 MCG TAB PO SCH (05:52)
[2018-10-16] MEDS: Ondansetron PF 4 MG/2 ML Vial IVP SCH ×3 (06:04→21:04)
[2018-10-16] MEDS: Lubiprostone 24 MCG CAP PO SCH ×2 (08:37→16:01)
[2018-10-16] MEDS: Potassium Chloride 20 MEQ TAB PO SCH ×2 (08:37→16:01)
[2018-10-16] MEDS: Metolazone 5 MG TAB PO SCH (08:38)
[2018-10-16] MEDS: Lidocaine 5% Patch TD SCH ×2 (08:42→14:16)
[2018-10-16] MEDS: Aspirin 81 mg Enteric Coated Tablet PO SCH (08:45)
[2018-10-16] MEDS: Isosorbide Dinitrate 5 MG TAB PO SCH ×2 (08:45→21:04)
[2018-10-16] MEDS: Multivit, Therapeutic 1 TAB PO SCH (08:47)
[2018-10-16] MEDS: Gabapentin 300 MG CAP PO SCH ×3 (08:47→21:04)
[2018-10-16] MEDS: predniSONE 5 MG TAB PO SCH (08:48)
[2018-10-16] MEDS: Polyethylene Glycol 3350 17 GM Packet PO SCH (08:48)
[2018-10-16] MEDS: Enoxaparin Sodium 30 MG/0.3 ML SYRINGE SC SCH (08:50)
[2018-10-16] MEDS: Nystatin Cream 30 GM TUBE TOP SCH ×4 (08:52→21:06)
[2018-10-16] MEDS: Insulin Glargine 30 UNITS in Pre-Filled Syringe 1 EACH SC SCH (08:53)
--- NOTE | 2018-10-16 10:46 | PDOC.PN ---
- Subjective Encounter Start Date: 10/16/18 Encounter Start Time: 10:44 Patient seen and examined, no new issues or complaints. All questions answered, no family at bedside. - Objective Resuscitation Status - Order Detail: 10/10/18 18:13 Resuscitation Status Routine Resuscitation Status: FULL: Full Resuscitation Discussed with: Patient Vital Signs & Weight: Vital Signs (12 hours) Temp Pulse Resp BP BP Pulse Ox 10/16/18 07:40 97.6 F 87 20 154/63 H 100 10/16/18 04:00 20 10/16/18 00:00 98.3 F 87 18 134/61 96 Weight Admit Weight 150 lb Weight 150 lb I&O: 10/15/18 10/16/18 10/17/18 06:59 06:59 06:59 Intake Total 1970 Output Total 800 Balance 1170 Result Diagrams: 10/11/18 04:01 10/13/18 08:01 Additional Labs: Accuchecks 10/16/18 10/15/18 10/15/18 06:10 21:14 15:58 POC Glucose 142 H 230 H 237 H 10/15/18 10:55 POC Glucose 156 H Phys Exam - Physical Examination Constitutional: NAD HEENT: PERRLA, moist MMs, sclera anicteric Neck: no nodes, no JVD, supple Respiratory: no wheezing, no rales, no rhonchi Cardiovascular: RRR, no significant murmur, no rub Gastrointestinal: soft, non-tender, no distention, positive bowel sounds Musculoskeletal: pulses present, edema present (trace) Dx/Plan (1) Nausea and vomiting Code(s): R11.2 - NAUSEA WITH VOMITING, UNSPECIFIED Status: Acute Comment: Improving, says she may be able to go home in a day or two. needs HH at time of discharge, pt refused SNU. (2) CKD (chronic kidney disease) stage 4, GFR 15-29 ml/min Code(s): N18.4 - CHRONIC KIDNEY DISEASE, STAGE 4 (SEVERE) Status: Chronic Comment: Improving (3) Coronary artery disease Code(s): I25.10 - ATHSCL HEART DISEASE OF [place] CORONARY ARTERY W/O ANG PCTRS Status: Chronic Qualifiers: Coronary Disease-Associated Artery/Lesion type: [place] artery [place] vs. transplanted heart: [place] heart Associated angina: without angina Qualified Code(s): I25.10 - Atherosclerotic heart disease of [place] coronary artery without angina pectoris Comment: on ASA,statin,BB (4) Dyslipidemia Code(s): E78.5 - HYPERLIPIDEMIA, UNSPECIFIED Status: Chronic Comment: on statin (5) GERD (gastroesophageal reflux disease) Code(s): K21.9 - GASTRO-ESOPHAGEAL REFLUX DISEASE WITHOUT ESOPHAGITIS Status: Chronic Qualifiers: Esophagitis presence: esophagitis presence not specified Qualified Code(s) : K21.9 - Gastro-esophageal reflux disease without esophagitis Comment: on PPI (6) Hypothyroidism Code(s): E03.9 - HYPOTHYROIDISM, UNSPECIFIED Status: Chronic Qualifiers: Comment: continue synthroid - Plan * continue current plan of care * PFTs pending to be done on wednesday at [facility] * DC once done * no changes in plan of care * case and plan d/w patient at length, she understood and agreed with this plan.
[2018-10-16] MEDS: HumaLOG 300 UNITS/3 ML VIAL SC PRN ×2 (11:44→18:19)
[2018-10-16] MEDS: Acetaminophen 325 MG TAB PO PRN ×3 (12:33→23:14)
[2018-10-16] MEDS: traMADol HCl 50 MG TAB PO PRN (14:16)
[2018-10-16] MEDS: Lorazepam 1 MG TAB PO PRN (18:28)
[2018-10-16] MEDS: Atorvastatin Calcium 10 MG TAB PO SCH (21:05)
[2018-10-16] MEDS: Lidocaine Patch Removal 1 EACH TOP SCH (21:05)
[2018-10-16] MEDS ORDERED: Vancomycin HCl 1 GM in Premix Bag 1 BAG IVPB SCH (21:15)
[2018-10-16] MEDS: Vancomycin HCl 1.25 GM in Sodium Chloride 0.9% 250 ML 250 ML IVPB SCH (22:17)
[2018-10-16] MEDS: Cyclobenzaprine 10 MG TAB PO PRN (23:14)
[2018-10-17] MEDS: traMADol HCl 50 MG TAB PO PRN ×3 (06:16→23:20)
[2018-10-17] MEDS: Levothyroxine Sodium 25 MCG TAB PO SCH (06:18)
[2018-10-17] MEDS: Levothyroxine Sodium 112 MCG TAB PO SCH (06:18)
[2018-10-17] MEDS: Furosemide 40 MG/4 ML VIAL SLOW IVP SCH ×2 (06:19→14:43)
[2018-10-17] MEDS: Piperacillin/Tazobactam 3.375 GM in Sodium Chloride 0.9% 100 ML IVPB SCH ×2 (06:19→13:23)
[2018-10-17] MEDS: Acetaminophen 325 MG TAB PO PRN ×4 (07:18→23:17)
[2018-10-17] MEDS: Potassium Chloride 20 MEQ TAB PO SCH ×2 (07:56→17:44)
[2018-10-17] MEDS: Lubiprostone 24 MCG CAP PO SCH ×2 (07:57→17:44)
[2018-10-17] MEDS: predniSONE 5 MG TAB PO SCH (07:57)
[2018-10-17] MEDS: Multivit, Therapeutic 1 TAB PO SCH (07:57)
[2018-10-17] MEDS: Gabapentin 300 MG CAP PO SCH ×3 (07:57→20:23)
[2018-10-17] MEDS: Aspirin 81 mg Enteric Coated Tablet PO SCH (07:58)
[2018-10-17] MEDS: Ondansetron PF 4 MG/2 ML Vial IVP SCH ×3 (07:59→20:23)
[2018-10-17] MEDS: Polyethylene Glycol 3350 17 GM Packet PO SCH (07:59)
[2018-10-17] MEDS: Isosorbide Dinitrate 5 MG TAB PO SCH ×2 (07:59→20:22)
[2018-10-17] MEDS: Lidocaine 5% Patch TD SCH ×2 (08:00→10:26)
--- NOTE | 2018-10-17 09:08 | PDOC.PN ---
- Subjective Encounter Start Date: 10/17/18 Encounter Start Time: 11:10 Subjective: Constipation resolved. Good BM this AM. No fever. Foot healing well. -: Patient reports neck and left shoulder blade pain unchanged. Had complained -: of some chest pain/pressure this AM, but none now. CXR normal. - Objective Resuscitation Status - Order Detail: 10/10/18 18:13 Resuscitation Status Routine Resuscitation Status: FULL: Full Resuscitation Discussed with: Patient MAR Reviewed: Yes Vital Signs & Weight: Vital Signs (12 hours) Temp Pulse Resp BP BP Pulse Ox 10/17/18 07:45 97.6 F 80 18 157/89 H 96 10/17/18 04:00 98.3 F 79 20 125/72 92 L 10/17/18 00:00 98.3 F 79 18 111/55 L 94 L Weight Admit Weight 150 lb Weight 150 lb I&O: 10/16/18 10/17/18 10/18/18 06:59 06:59 06:59 Intake Total 1970 1600 Output Total 800 Balance 1170 1600 Result Diagrams: 10/11/18 04:01 10/13/18 08:01 Additional Labs: Accuchecks 10/16/18 10/16/18 10/16/18 21:17 15:48 11:15 POC Glucose 135 H 280 H 174 H Phys Exam - Physical Examination Constitutional: NAD HEENT: moist MMs Respiratory: no wheezing, no rales, no rhonchi Cardiovascular: RRR 3/6 holosytolic murmur dressing left foot c/d/i Neurological: non-focal, moves all 4 limbs Psychiatric: normal affect, A&O x 3 Dx/Plan (1) 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 Ochoa amputated last week, x-ray negative for bony lesions, continue IV abx while in hospital, cultures with MRSA and E. faecalis, will d/c on Bactrim and Amoxicillin (2) DM type 2 (diabetes mellitus, type 2) Status: Chronic Qualifiers: Diabetes mellitus fdc insulin use: with fdc use Comment: half dose of Lantus day of surgery, increase back to full dose after that (3) CKD (chronic kidney disease), stage III Code(s): N18.3 - CHRONIC KIDNEY DISEASE, STAGE 3 (MODERATE) Status: Chronic Comment: jumped a bit today, will monitor (4) Coronary artery disease Code(s): I25.10 - ATHSCL HEART DISEASE OF [place] CORONARY ARTERY W/O ANG PCTRS Status: Chronic Qualifiers: Coronary Disease-Associated Artery/Lesion type: [place] artery [place] vs. transplanted heart: [place] heart Associated angina: without angina Qualified Code(s): I25.10 - Atherosclerotic heart disease of [place] coronary artery without angina pectoris Comment: on ASA,statin,BB (5) Dyslipidemia Code(s): E78.5 - HYPERLIPIDEMIA, UNSPECIFIED Status: Chronic Comment: on statin (6) GERD (gastroesophageal reflux disease) Code(s): K21.9 - GASTRO-ESOPHAGEAL REFLUX DISEASE WITHOUT ESOPHAGITIS Status: Chronic Qualifiers: Esophagitis presence: esophagitis presence not specified Qualified Code(s) : K21.9 - Gastro-esophageal reflux disease without esophagitis Comment: on PPI (7) Hypertension Code(s): I10 - ESSENTIAL (PRIMARY) HYPERTENSION Status: Chronic Qualifiers: Hypertension type: essential hypertension Qualified Code(s): I10 - Essential (primary) hypertension Comment: controlled (8) Hypothyroidism Code(s): E03.9 - HYPOTHYROIDISM, UNSPECIFIED Status: Chronic Qualifiers: Comment: continue synthroid (9) Paroxysmal atrial fibrillation Code(s): I48.0 - PAROXYSMAL ATRIAL FIBRILLATION Status: Chronic Comment: on Amiodarone (10) Severe aortic stenosis Code(s): I35.0 - NONRHEUMATIC AORTIC (VALVE) STENOSIS Status: Chronic Comment: hopefully can get foot infection under control to allow valve replacement in a couple weeks as scheduled, PFTs tomorrow before discharge in preparation for AV replacement surgery in [place] (11) Left scapula fracture Code(s): S42.102A - FRACTURE OF UNSP PART OF SCAPULA, LEFT SHOULDER, INIT Status: Chronic Comment: present on admission 02/[address] Mitchell, conservative care and was to follow up in his clinic. Still with sig pain and worse recently. Will CT. If stable can f/u in Dr. Mitchell's clinic. (12) Constipation Code(s): K59.00 - CONSTIPATION, UNSPECIFIED Status: Resolved Comment: acute on chronic, in setting of chronic pain meds, Dr. Andres consulted, naloxegol added - Plan cont current plan of care, continue antibiotics, PT/OT, DVT proph w/lovenox Likely home tomorrow on oral antibiotics * . - Discharge Day Encounter end time: 11:20
--- NOTE | 2018-10-17 09:50 | PRG ---
DATE OF SERVICE: 10/17/2018 SUBJECTIVE: Ms. Ivory is breathing about the same. No complaints. OBJECTIVE: VITAL SIGNS: Blood pressure is variable 111/55, then 157/89 and pulse is 80. LUNGS: Clear. CARDIAC: Aortic stenosis. Murmur as before. ABDOMEN: Soft and nontender. EXTREMITIES: There is no significant edema. ASSESSMENT: 1. Severe aortic stenosis. 2. No evidence of any carotid arterial disease. 3. Pulmonary function test scheduled tomorrow. 4. Foot infection being treated with intravenous antibiotics to oral antibiotics tomorrow. PLAN: Probably home tomorrow. Would like to get Infectious Disease input to see whether they think, she is a candidate. Job ID: [id number]
[2018-10-17] MEDS: Nystatin Cream 30 GM TUBE TOP SCH ×4 (10:25→20:25)
[2018-10-17] MEDS: Insulin Glargine 30 UNITS in Pre-Filled Syringe 1 EACH SC SCH (10:25)
[2018-10-17] MEDS: Enoxaparin Sodium 30 MG/0.3 ML SYRINGE SC SCH (10:26)
--- NOTE | 2018-10-17 10:39 | RAD ---
SINGLE VIEW OF THE CHEST: COMPARISON: 10/07/2018. HISTORY: Chest pain. FINDINGS: A single view of the chest shows a normal-size cardiomediastinal silhouette. A cardiac monitoring de vice projects in the left chest wall. There is no evidence of consolidation, mass, or pleural effusi on. There are multiple remote healed left rib fractures. IMPRESSION: No evidence of acute cardiopulmonary disease. POS: [facility]
[2018-10-17] MEDS: Cyclobenzaprine 10 MG TAB PO PRN ×2 (12:14→20:26)
[2018-10-17] MEDS: HumaLOG 300 UNITS/3 ML VIAL SC PRN ×3 (13:33→20:47)
[2018-10-17] MEDS: AMOXicillin 250 MG CAP PO SCH (20:22)
[2018-10-17] MEDS: Atorvastatin Calcium 10 MG TAB PO SCH (20:23)
[2018-10-17] MEDS: Sulfameth/Trimethoprim DS 800-160mg TAB PO SCH (20:23)
[2018-10-17] MEDS: Lorazepam 1 MG TAB PO PRN (20:27)
[2018-10-17] MEDS ORDERED: Vancomycin HCl 1 GM in Premix Bag 1 BAG IVPB SCH (21:00)
[2018-10-17] MEDS: Lidocaine Patch Removal 1 EACH TOP SCH (22:20)
[2018-10-18] MEDS: Cyclobenzaprine 10 MG TAB PO PRN (05:47)
[2018-10-18] MEDS: Levothyroxine Sodium 25 MCG TAB PO SCH (05:47)
[2018-10-18] MEDS: Levothyroxine Sodium 112 MCG TAB PO SCH (05:47)
[2018-10-18] MEDS: Furosemide 40 MG/4 ML VIAL SLOW IVP SCH ×2 (05:47→13:25)
[2018-10-18] MEDS: HumaLOG 300 UNITS/3 ML VIAL SC PRN ×2 (05:52→11:53)
[2018-10-18] MEDS ORDERED: Clopidogrel Bisulfate 75 MG TAB ONE (05:55)
[2018-10-18] MEDS: traMADol HCl 50 MG TAB PO PRN (05:56)
[2018-10-18 06:06] LABS: #Eosinphils 0.1 thou/uL (0.0-0.7); #Lymphocytes 2.4 thou/uL (1.20-3.40); #Monocytes 0.8 thou/uL (0.11-0.59); #Neutrophils 5.1 thou/uL (1.40-6.50); %Basophils 0.5 % (0.0-1.0); %Eosinophils 0.7 % (0.0-10.0); %Lymphocytes 28.3 % (21.0-51.0); %Monocytes 9.8 % (0.0-10.0); %Neutrophils 60.8 % (42.0-75.0); Hemoglobin 9.5 g/dL (12.0-16.0); Mean Corpuscular HGB CONC 29.3 g/dL (32.0-36.0); Mean Corpuscular Hemoglobin 24.2 pg (27.0-31.0); Mean Corpuscular Volume 82.5 fL (78.0-98.0); Mean Platelet Volume 7.5 fL (7.4-10.4); Platelet Count 321 thou/uL (130-400); RBC Distribution Width 16.5 % (11.5-14.5); Red Blood Cell (RBC) Count 3.91 mill/uL (4.20-5.40); White Blood Cell (WBC) Count 8.4 thou/uL (4.8-10.8)
[2018-10-18 06:09] LABS: Anion Gap 14 mmol/L (10-20); BUN (Urea Nitrogen) 29 mg/dL (9.8-20.1); Calc. Creatinine Clearance 34 mL/min (70-130); Carbon Dioxide 31 mmol/L (23-31); Chloride 99 mmol/L (98-107); Estimated GFR-MDRD 37; Glucose 179 mg/dL (83-110); Potassium 4.3 mmol/L (3.5-5.1); Sodium 140 mmol/L (136-145)
[2018-10-18] MEDS: Potassium Chloride 20 MEQ TAB PO SCH (08:04)
[2018-10-18] MEDS: Lubiprostone 24 MCG CAP PO SCH (08:04)
[2018-10-18] MEDS: Ondansetron PF 4 MG/2 ML Vial IVP SCH (08:07)
[2018-10-18] MEDS: Polyethylene Glycol 3350 17 GM Packet PO SCH (08:08)
[2018-10-18] MEDS ORDERED: Metolazone 5 MG TAB PO SCH (08:30)
[2018-10-18] MEDS: Morphine 4 MG/ML VIAL SLOW IVP PRN (09:06)
[2018-10-18] MEDS: Enoxaparin Sodium 30 MG/0.3 ML SYRINGE SC SCH (09:12)
[2018-10-18] MEDS: Lidocaine 5% Patch TD SCH (09:12)
[2018-10-18] MEDS: Multivit, Therapeutic 1 TAB PO SCH (09:15)
[2018-10-18] MEDS: Gabapentin 300 MG CAP PO SCH (09:15)
[2018-10-18] MEDS: predniSONE 5 MG TAB PO SCH (09:15)
[2018-10-18] MEDS: Isosorbide Dinitrate 5 MG TAB PO SCH (09:15)
[2018-10-18] MEDS: Sulfameth/Trimethoprim DS 800-160mg TAB PO SCH (09:15)
[2018-10-18] MEDS: Aspirin 81 mg Enteric Coated Tablet PO SCH (09:15)
--- NOTE | 2018-10-18 09:21 | PDOC.PN ---
- Subjective Encounter Start Date: 10/18/18 Encounter Start Time: 11:30 Subjective: Patient without new complaints. Had her PFTs done this AM. Ready to -: go home. - Objective Resuscitation Status - Order Detail: 10/10/18 18:13 Resuscitation Status Routine Resuscitation Status: FULL: Full Resuscitation Discussed with: Zakiya COLEMAN Reviewed: Yes Vital Signs & Weight: Vital Signs (12 hours) Temp Pulse Resp BP Pulse Ox 10/18/18 07:50 97.6 F 80 20 150/65 H 98 10/18/18 04:40 77 18 10/18/18 00:00 20 Weight Admit Weight 150 lb Weight 150 lb I&O: 10/17/18 10/18/18 10/19/18 06:59 06:59 06:59 Intake Total 2109 Balance 2109 Result Diagrams: 10/18/18 05:16 10/18/18 05:16 Additional Labs: Accuchecks 10/18/18 10/17/18 10/17/18 05:51 20:48 15:21 POC Glucose 165 H 222 H 232 H 10/17/18 10/17/18 11:10 07:28 POC Glucose 224 H 120 H Phys Exam - Physical Examination Constitutional: NAD HEENT: moist MMs Respiratory: no wheezing, no rales, no rhonchi Cardiovascular: RRR 3/6 blowing holosystolic murmur Gastrointestinal: soft, non-tender, positive bowel sounds dressing to left amputation site c/d/i Neurological: non-focal, moves all 4 limbs Psychiatric: normal affect, A&O x 3 Dx/Plan (1) 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 Ochoa amputated last week, x-ray negative for bony lesions, continue IV abx while in hospital, cultures with MRSA and E. faecalis, will d/c on Bactrim and Amoxicillin (2) DM type 2 (diabetes mellitus, type 2) Status: Chronic Qualifiers: Diabetes mellitus terminal clerk insulin use: with terminal clerk use Comment: Patient still at half dose of Lantus, with decent BP control, suspect diet not as well controlled at home (3) CKD (chronic kidney disease), stage III Code(s): N18.3 - CHRONIC KIDNEY DISEASE, STAGE 3 (MODERATE) Status: Chronic Comment: jumped a bit today, will monitor (4) Coronary artery disease Code(s): I25.10 - ATHSCL HEART DISEASE OF [place] CORONARY ARTERY W/O ANG PCTRS Status: Chronic Qualifiers: Coronary Disease-Associated Artery/Lesion type: [place] artery [place] vs. transplanted heart: [place] heart Associated angina: without angina Qualified Code(s): I25.10 - Atherosclerotic heart disease of [place] coronary artery without angina pectoris Comment: on ASA,statin,BB (5) Dyslipidemia Code(s): E78.5 - HYPERLIPIDEMIA, UNSPECIFIED Status: Chronic Comment: on statin (6) GERD (gastroesophageal reflux disease) Code(s): K21.9 - GASTRO-ESOPHAGEAL REFLUX DISEASE WITHOUT ESOPHAGITIS Status: Chronic Qualifiers: Esophagitis presence: esophagitis presence not specified Qualified Code(s) : K21.9 - Gastro-esophageal reflux disease without esophagitis Comment: on PPI (7) Hypertension Code(s): I10 - ESSENTIAL (PRIMARY) HYPERTENSION Status: Chronic Qualifiers: Hypertension type: essential hypertension Qualified Code(s): I10 - Essential (primary) hypertension Comment: controlled (8) Hypothyroidism Code(s): E03.9 - HYPOTHYROIDISM, UNSPECIFIED Status: Chronic Qualifiers: Comment: continue synthroid (9) Paroxysmal atrial fibrillation Code(s): I48.0 - PAROXYSMAL ATRIAL FIBRILLATION Status: Chronic Comment: on Amiodarone (10) Severe aortic stenosis Code(s): I35.0 - NONRHEUMATIC AORTIC (VALVE) STENOSIS Status: Chronic Comment: hopefully can get foot infection under control to allow valve replacement in a couple weeks as scheduled, PFTs tomorrow before discharge in preparation for AV replacement surgery in [place] (11) Left scapula fracture Code(s): S42.102A - FRACTURE OF UNSP PART OF SCAPULA, LEFT SHOULDER, INIT Status: Chronic Comment: present on admission 02/[address] Mitchell, conservative care and was to follow up in his clinic. Still with sig pain and worse recently. Will CT. If stable can f/u in Dr. Mitchell's clinic. (12) Constipation Code(s): K59.00 - CONSTIPATION, UNSPECIFIED Status: Resolved Comment: acute on chronic, in setting of chronic pain meds, Dr. Andres consulted, naloxegol added - Plan cont current plan of care, continue antibiotics D/C home with home health * . - Discharge Day Encounter end time: 12:00
[2018-10-18] MEDS: Nystatin Cream 30 GM TUBE TOP SCH ×2 (09:34→13:26)
[2018-10-18] MEDS: Insulin Glargine 30 UNITS in Pre-Filled Syringe 1 EACH SC SCH (09:35)
[2018-10-18] MEDS: AMOXicillin 250 MG CAP PO SCH (10:28)
[2018-10-18 11:43] VITALS: BP 152/67; TEMP 97.9
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
== END 2018-10-18 14:25 | disposition home health service (06) | DRG 580 ==
LOC: SURG A 16:09
PROVIDERS: ADMIT Internal Medicine; ATTEND Internal Medicine
PROC: 0Y6W0Z0 Detachment at Left 4th Toe, Complete, Open Approach (ICD-10-PCS; principal; 2018-10-11)
DX: L97.524 Non-pressure chronic ulcer of other part of left foot with necrosis of bone (principal); I13.0 Hypertensive heart and chronic kidney disease with heart failure and stage 1 through stage 4 chronic kidney disease, or unspecified chronic kidney disease; I50.32 Chronic diastolic (congestive) heart failure; L03.032 Cellulitis of left toe; I25.10 Atherosclerotic heart disease of native coronary artery without angina pectoris; E11.22 Type 2 diabetes mellitus with diabetic chronic kidney disease; I48.0 Paroxysmal atrial fibrillation; N18.3 Chronic kidney disease, stage 3 (moderate); E78.5 Hyperlipidemia, unspecified; K59.00 Constipation, unspecified; I73.9 Peripheral vascular disease, unspecified; I87.8 Other specified disorders of veins; M10.9 Gout, unspecified; K21.9 Gastro-esophageal reflux disease without esophagitis; B95.62 Methicillin resistant Staphylococcus aureus infection as the cause of diseases classified elsewhere; B95.2 Enterococcus as the cause of diseases classified elsewhere; E66.01 Morbid (severe) obesity due to excess calories; Z68.25 Body mass index [BMI] 25.0-25.9, adult; I35.0 Nonrheumatic aortic (valve) stenosis; S42.102D Fracture of unspecified part of scapula, left shoulder, subsequent encounter for fracture with routine healing; S22.060D Wedge compression fracture of T7-T8 vertebra, subsequent encounter for fracture with routine healing; V49.9XXD Car occupant (driver) (passenger) injured in unspecified traffic accident, subsequent encounter; Z79.4 Long term (current) use of insulin; Z89.422 Acquired absence of other left toe(s); Z79.82 Long term (current) use of aspirin; Z79.899 Other long term (current) drug therapy; Z88.8 Allergy status to other drugs, medicaments and biological substances
CPT/HCPCS: 36415; 36416; 71045; 71046; 71250; 80048; 80053; 80202; 82553; 83690; 83880; 84484; 85025; 86140; 87070; 87076; 87077; 87186; 87205; 93005; 93010; 93880; 94010; 94727; J1650; J1825; J1940; J2270; J2405; J2543; J2704; J3010; J3370; J7050; J7512; S0020; S0028

== ENCOUNTER 2018-11-20 13:53 | Inpatient (IN) | payer MEDICARE, BC ==
[2018-11-20 14:36] LABS: Hemoglobin 12.2 g/dL (12.0-16.0); Mean Corpuscular HGB CONC 29.3 g/dL (32.0-36.0); Mean Corpuscular Volume 78.6 fL (78.0-98.0); Mean Platelet Volume 7.7 fL (7.4-10.4); Platelet Count 413 thou/uL (130-400); RBC Distribution Width 17.3 % (11.5-14.5); Red Blood Cell (RBC) Count 5.31 mill/uL (4.20-5.40)
[2018-11-20 14:40] LABS: Bilirubin Negative (Negative); Blood, Urine Small (Negative); Clarity CLEAR (Clear); Glucose, Urine (Dipstick) Negative (Negative); Leukocyte Negative (Negative); Nitrite Negative (Negative); Protein, Urine (Dipstick) Negative (Neg-Trace); Specific Gravity, Urine 1.008 (1.002-1.036); Urobilinogen 0.2 mg/dL (0.2-1.0)
[2018-11-20 14:41] LABS: INR-International Normal Ratio 0.9; PTT 28.1 SEC (22.9-36.1); Prothrombin Time 12.6 SEC (12.0-14.7)
[2018-11-20 14:42] LABS: Bacteria/HPF None Seen HPF (None Seen); Hyaline Casts/LPF 0-3 HYALINE CAST LPF (0-3 Hyaline); Pathc Cast-AUWi Flag 0.13 (0-2.49); RBC/HPF 0-3 HPF (0-3); Squamous Epithelial None Seen HPF (0-3); WBC/HPF None Seen HPF (0-3)
[2018-11-20] MEDS ORDERED: Haloperidol Lactate 5 MG/ML VIAL ONE (14:44)
[2018-11-20] MEDS ORDERED: Lorazepam 2 MG/ML VIAL ONE (14:51)
[2018-11-20 14:58] LABS: ALT (SGPT) 14 U/L (8-55); AST (SGOT) 24 U/L (5-34); Albumin 4.2 g/dL (3.4-4.8); Alkaline Phosphatase 106 U/L (40-150); Anion Gap 18 mmol/L (10-20); BUN (Urea Nitrogen) 47 mg/dL (9.8-20.1); Bilirubin, Total 0.9 mg/dL (0.2-1.2); Calc. Creatinine Clearance 0 mL/min (70-130); Calcium 10.8 mg/dL (7.8-10.44); Carbon Dioxide 36 mmol/L (23-31); Chloride 94 mmol/L (98-107); Estimated GFR-MDRD 48; Globulin 3.5 g/dL (2.4-3.5); Magnesium 1.8 mg/dL (1.6-2.6); Protein, Total 7.7 g/dL (6.0-8.3); Sodium 145 mmol/L (136-145)
[2018-11-20 15:01] LABS: Glucose 27 mg/dL (83-110); Potassium 2.7 mmol/L (3.5-5.1)
[2018-11-20 15:04] LABS: #Eosinphils 0.1 thou/uL (0.0-0.7); #Lymphocytes 1.9 thou/uL (1.20-3.40); #Monocytes 1.2 thou/uL (0.11-0.59); #Neutrophils 14.7 thou/uL (1.40-6.50); %Basophils 0.3 % (0.0-1.0); %Eosinophils 0.3 % (0.0-10.0); %Lymphocytes 10.6 % (21.0-51.0); %Monocytes 6.9 % (0.0-10.0); Anisocytosis SLIGHT = 6-15 cells (100X) (0-5/hpf); MDiff Complete? YES; Platelet Morphology Comment Appears Increased
[2018-11-20] MEDS ORDERED: Cefepime 2 GM VIAL ONE (15:05)
[2018-11-20] MEDS ORDERED: Dextrose 50% Abboject 50 ML SYRINGE ONE (15:05)
[2018-11-20] MEDS ORDERED: Vancomycin HCl 1.25 GM in Sodium Chloride 0.9% 250 ML 250 ML IVPB ONE (15:15)
--- NOTE | 2018-11-20 15:18 | RAD ---
AP CHEST: Date: 11/20/18 HISTORY: Fall with altered mental status. COMPARISON: 10/17/18. FINDINGS: The patient is rotated on this exam. Heart size is enlarged. There are atherosclerotic changes of the aorta. Old appearing left-sided rib fractures are seen. An electronic device is seen overlying the c hest. IMPRESSION: Cardiomegaly. No definite acute findings. POS: [facility]
--- NOTE | 2018-11-20 15:36 | CT ---
CT OF BRAIN PERFORMED WIHTOUT CONTRAST ENHANCEMENT: Date: 11/20/18 HISTORY: Altered mental status. Patient status post fall. COMPARISON: 12/22/17 study. FINDINGS: There is some generalized ventricular and sulcal prominence. There are no signs of intracerebral hemo rrhage or extra-axial fluid collections. Mastoid air cells and visualized sinuses are clear. IMPRESSION: No acute intracranial abnormalities. POS: [facility]
[2018-11-20] MEDS ORDERED: Magnesium 2 GM/50 ML BAG (IN WATER) ONE (15:53)
[2018-11-20] MEDS ORDERED: Potassium Chloride 40 MEQ in Sodium Chloride 0.9% 250 ML 250 ML IVPB SCH (16:15)
--- NOTE | 2018-11-20 16:21 | CT ---
CT CERVICAL SPINE PERFORMED WITHOUT CONTRAST ENHANCEMENT: Comparison: 10-24-17 History: Fall with neck pain. FINDINGS: The bones are demineralized. Disc narrowing at the C4-5 level is accentuated compared to the prior ex amination. There is some increased bony sclerosis involving the inferior endplate of C4. Also, there has been development of sclerosis and some moderate compression changes of the C7 vertebral body. The se are new as compared to the prior study. There is also worsening of the compression changes of T4 a s compared to that prior exam. There are degenerative facet changes present. There is no central linus l stenosis. IMPRESSION: 1. Diffuse bony demineralization. 2. New compression injury of C7 as compared to the October 2017 study. Vertebral body is compressed britton roximately 40% without any significant bony retropulsion. I am not certain as to the exact age of thi s compression injury. 3. The T3 compression fracture appears similar to the prior examination. The T4 vertebral body is now basically a vertebral plana deformity. These findings were discussed with Dr. Butler. POS: [facility]
[2018-11-20] MEDS ORDERED: Amiodarone 450 MG, Admixture Fee 1 EACH in Dextrose 5% in Water 250 ML IVPB SCH (17:00)
[2018-11-20] MEDS ORDERED: Bacitracin Zinc 1 Packet ONE (17:05)
[2018-11-20 17:49] LABS: Troponin I 0.076 ng/mL (< 0.028)
[2018-11-20] MEDS ORDERED: CCU Electrolyte Replacement 1 EACH FS ONE (18:04)
[2018-11-20] MEDS ORDERED: Sodium Chloride 0.9% 1,000 ML IV SCH (18:04)
[2018-11-20] MEDS ORDERED: Dextrose 50% Abboject 50 ML SYRINGE SLOW IVP PRN (18:04)
[2018-11-20] MEDS ORDERED: Dextrose 5% in Water 1,000 ML IV PRN (18:04)
[2018-11-20] MEDS ORDERED: Magnesium 2 GM/50 ML 2 GM in Premix Bag 1 BAG IVPB PRN (18:06)
[2018-11-20] MEDS ORDERED: Magnesium Oxide 400 MG TAB PO PRN ×2 (18:06)
[2018-11-20] MEDS ORDERED: Potassium Phosphate 9 MMOL in Sodium Chloride 0.9% 100 ML IVPB PRN (18:06)
[2018-11-20] MEDS ORDERED: Potassium Phosphate 12 MMOL in Sodium Chloride 0.9% 250 ML 250 ML IV PRN (18:06)
[2018-11-20] MEDS ORDERED: Potassium Phosphate 15 MMOL in Sodium Chloride 0.9% 250 ML 250 ML IV PRN (18:06)
[2018-11-20] MEDS ORDERED: Potassium Chloride 40 MEQ in Premix Bag 1 BAG IVPB PRN (18:06)
[2018-11-20] MEDS ORDERED: Potassium Chloride 40 MEQ in Sodium Chloride 0.9% 250 ML 250 ML IVPB PRN (18:06)
[2018-11-20] MEDS ORDERED: CCU ELECTROLYTE REPLACEMENT PROTOCOL FS PRN (18:06)
[2018-11-20] MEDS ORDERED: Potassium Chloride 20 MEQ TAB PO PRN (18:06)
[2018-11-20] MEDS ORDERED: PHOS-NAK 1 PKT PACK PO PRN ×2 (18:06)
[2018-11-20 18:14] LABS: Lactic Acid 2.2 mmol/L (0.5-2.2)
[2018-11-20] MEDS ORDERED: Digoxin 0.5 MG/2 ML AMP SLOW IVP SCH (18:30)
--- NOTE | 2018-11-20 18:32 | HP ---
PRIMARY CARE PHYSICIAN: Robi Dillon MD CHIEF COMPLAINT: Found down by her niece. HISTORY OF PRESENT ILLNESS: The history of present illness is taken partially from the patient's niece who is at the bedside and also partially from the patient who has become more alert now. Ms. Ivory is an 83-year-old female, who has a history of diabetes mellitus as well as hypertension, coronary artery disease, and severe aortic stenosis. Her niece says that on she seemed fine. She is normally ambulatory and completely "with it." On the following day, her niece called her in the morning and this is the day of the admission and says that she did not answer the phone and she became a little bit concerned and she had a friend called and she did not answer as well. They went to check on her and found her down on the floor. They called an ambulance, and they checked her blood sugar, it was in the 20s and they apparently gave her some dextrose in the field and brought her to the emergency room, where she was found to be hypoglycemic and hypothermic. She also had an elevated white blood cell count as well as an elevated lactic acid, and she is being admitted for further evaluation. When asked what happened today to the patient, she says "my blood sugar got low," and she says that she has had a history of low blood glucoses, which brought her into the hospital in the past. She says that she was about to eat and in fact the food was on the table, when she says the next thing she knew she was "in the floor." She does not believe that she had her insulin today, and if asked that she is having any pain, she says "she hurts all over," but it appears as if she has some chronic pain in which she takes tramadol for. Currently, she says that she is a little bit short of breath. She claims that she is nauseated pretty much all the time and typically has some pain in the right side, which she says she has all the time and her tip scourer is "aware." Otherwise, no other history of present illness is known. REVIEW OF SYSTEMS: All systems were reviewed. She has a history of chronic leg wounds in her feet on the right and has some history of peripheral vascular disease there as well as chronic nausea. Otherwise, all systems are negative, except that mentioned in the history of present illness. PAST MEDICAL HISTORY: Significant for diabetes mellitus type 2, atrial fibrillation, chronic venous stasis, chronic low back pain, gout, hypertension, hyperlipidemia, chronic kidney disease; severe aortic stenosis, she believes she has a valve area of about 0.8, and she was being evaluated in [place] for possible TAVR. PAST SURGICAL HISTORY: She has had a cholecystectomy, appendectomy, hysterectomy, multiple toes amputated on the left foot, cataract surgery, several cardiac stents, and knee replacement surgery. ALLERGIES: HYDROCODONE. SOCIAL HISTORY: She is . She had 2 children, both of whom have . Her granddaughter, Marley Ivory, is her medical power of estate planning attorney. She is a nonsmoker and nondrinker. She would like to be a full code. FAMILY HISTORY: Her daughter of breast cancer. Son of colon cancer at age 47. CURRENT MEDICATIONS: She says she is not sure what her medications are, but says that they are the same as her previous admission and these include, 1. Amoxicillin 500 mg three times a day. 2. Bactrim double strength twice a day. 3. Flexeril 10 mg 3 times a day. 4. Lidoderm patch. 5. Movantik 12.5 mg daily. 6. Aspirin 81 mg daily. 7. Atorvastatin 10 mg daily. 8. Vitamin D3 of 5000 units daily. 9. Gabapentin 600 mg t.i.d. 10. Isosorbide dinitrate 10 mg twice a day. 11. Lorazepam 1 mg at bedtime. 12. Amitiza 24 mcg twice a day. 13. Zaroxolyn 5 mg on Tuesdays and Fridays. 14. Multivitamin once daily. 15. Nitroglycerin p.r.n. 16. Nystatin cream 4 times a day. 17. Protonix 40 mg daily. 18. MiraLAX 17 g daily. 19. Potassium chloride 40 mEq twice a day. 20. Prednisone 10 mg daily. 21. Tramadol 50 mg every 6 hours as needed. 22. Tylenol 1000 mg q.6 as needed. 23. Diclofenac gel. 24. Tresiba FlexTouch 60 units daily. 25. Humalog mix as directed. 26. Synthroid 137 mcg daily. 27. Zofran as needed. 28. Demadex 40 mg twice a day. PHYSICAL EXAMINATION: GENERAL: She is alert and oriented. She appears to be in some distress, more to due to mild agitation. She is well-developed and well-nourished. VITAL SIGNS: Her blood pressure is 86/40, heart rate is varying between 80 up to 150, respiratory rate is 16, temperature is 89.6 rectal. HEENT: Her pupils are equal, round, and reactive. Extraocular muscles are intact. Her sclerae are anicteric. Throat, there is no erythema, no exudates. NECK: No adenopathy. No bruits. LUNGS: She has bilateral rales through almost the mid part of her lung field. CARDIOVASCULAR: Heart rate is rapid. She does have a grade 2/6 systolic murmur with radiation to the carotids. ABDOMEN: Obese. It is soft. She does have some right upper quadrant tenderness. There is no rebound, no guarding. No organomegaly. EXTREMITIES: She has some mild erythema on both of her lower extremities. She has some excoriations on the tips of the toes on the right foot, and noted toe amputation on the left. She has got skin tears on her upper extremities and also on her knees. NEUROLOGIC: Nonfocal. SKIN AND INTEGUMENT: As previously stated with multiple skin tears and mild erythema. IMAGING STUDIES: Her chest x-ray, she has cardiomegaly, possible increased pulmonary vascular markings by my reading. EKG, on her rhythm strip, it was atrial fibrillation with rapid ventricular response. LABORATORY RESULTS: White blood cell count is 18, hemoglobin is 12.2, hematocrit is 41.8, and platelet count is 413. INR 0.9. Sodium is 145, potassium is 2.7, chloride is 94, CO2 is 36, BUN of 47, creatinine is 1.09, glucose is 27. Lactic acid 2.7. Urinalysis was essentially negative. ASSESSMENT: This is an 83-year-old female, who presents to the emergency room after being found down at home. She was found to be hypothermic and hypoglycemic and evidence of sepsis as well as in atrial fibrillation with rapid ventricular response. Given the multiple medical conditions and her advanced age, she will be admitted to the ICU as there is concern with both the sepsis and the hypothermia. It is possible that her rhythm disturbances will get worse in the process of rewarming her. Therefore, 1. With regard to sepsis, cultures have been taken in the emergency room. She will be placed on broad-spectrum IV antibiotics. The source of which is not obvious at this point, but I suspect it could be from the lower extremity wounds and possible cellulitis as her urine looks clear as well as her chest x-ray is not significant for an obvious pneumonia. 2. Hypoglycemia. We will be holding Tresiba, place her on a dextrose infusion, either D5 or D10, and once her blood sugar is stabilized, we can add a sliding scale insulin and adjust her home medications as needed. This is likely exacerbated by the current septic picture. 3. Hypokalemia. This will need to be replaced. 4. Atrial fibrillation with rapid ventricular response. Cardiology has been consulted due to the concern for difficulty controlling this. She is hypotensive as well as hypokalemic, and for this reason, we cannot use digoxin due to the low potassium. Dr. Purvis has been contacted and has recommended amiodarone drip for now. 5. Severe aortic stenosis. We will try to keep her as euvolemic as possible as she is likely to get flash pulmonary edema. If she gets too volume overloaded, and on the other hand could have syncope, if she is too low on volume. We will ask our Cardiology colleagues to help with regard to her volume management in the setting of severe aortic stenosis. 6. History of thyroid disease. Her TSH is low. We will need to check a free T4 to see whether or not she is over replaced. Her condition is guarded given her advanced age and multiple chronic as well as acute medical conditions. Job ID: [id number]
[2018-11-20] MEDS: Morphine 4 MG/ML VIAL SLOW IVP PRN (18:38)
[2018-11-20] MEDS: Piperacillin/Tazobactam 4.5 GM in Sodium Chloride 0.9% 100 ML IVPB SCH (18:42)
--- NOTE | 2018-11-20 19:07 | CON ---
DATE OF CONSULTATION: 11/20/2018 REASON FOR CONSULTATION: Atrial fibrillation with RVR. HISTORY OF PRESENT ILLNESS: The patient is a very pleasant 83-year-old white female, patient of Dr. Seth Lynch, who comes to the hospital for being altered. She was found by one of her jew members at home on the floor confused, so EMS was called. She was brought in and evaluated. She was found to be have low temperature. Her white count was 18,000. She has not developed a fever yet, but it was thought that she was septic. She was also found to be in atrial fibrillation with RVR, heart rate in the 150s. She was hypotensive, so amiodarone drip was started. Cardiology is being consulted. She does have a significant history of severe aortic stenosis, previous stenting to her LAD, which was recently looked that earlier this year in preparation for TAVR, and she had a widely patent LAD stent and a moderate lesion on the left circumflex. No need for any revascularization. She currently is much more awake on my evaluation. She is able to tell me that she thinks her sugar was down and that is why she was so confused, and her sugar was actually 27 on arrival, but her potassium was extremely low as well. Otherwise denies any chest pain, tightness, or pressure. She does admit to severe neck pain, severe back pain, severe right hip pain, and right knee pain. PAST MEDICAL HISTORY: 1. Severe aortic stenosis. 2. Coronary artery disease, status post LAD stent patent on recent heart catheterization just a month ago. 3. Venous insufficiency, treated with ablation. 4. Type 2 diabetes. 5. Severe diastolic heart failure. SURGICAL HISTORY: 1. ORIF of the right hip almost a year ago. Heart catheterization with stenting to her LAD. 2. Cholecystectomy. 3. Amputation of multiple toes of left foot. 4. Appendectomy. 5. Hysterectomy. 6. Bilateral cataract surgery. SOCIAL HISTORY: No alcohol, tobacco, or drugs. FAMILY HISTORY: Breast cancer in daughter. Son at age 47 from colon cancer. OUTPATIENT MEDICATIONS: Reviewed. ALLERGIES: HYDROCODONE, CAUSES ITCHING. REVIEW OF SYSTEMS: Negative unless stated in history of present illness. However, this may not be too reliable as the patient may be still a bit confused, however, did not seem this way on my evaluation. PHYSICAL EXAMINATION: VITAL SIGNS: Blood pressure 105/86, pulse 150, saturating 100% on room air, respiratory rate was 20. GENERAL: Awake, alert, and oriented to person, place, difficulty with time, in no distress. HEENT: Normocephalic and atraumatic. NECK: No JVD. LUNGS: Clear to auscultation. CARDIOVASCULAR: Grade 3/6 systolic murmur at the right upper sternal border. ABDOMEN: Soft, positive bowel sounds. EXTREMITIES: No edema. Pain on right hip and right knee to palpation. SKIN: Warm and dry. LABORATORY DATA: Laboratory work was reviewed. CBC with a white count of 18, hemoglobin of 12, hematocrit 41, platelet count of 413. Coags were normal. Chemistry with a potassium of 2.7, chloride of 94, carbon dioxide of 36, anion gap was 18, BUN 47, creatinine 1.09, glucose was 27 on arrival. Lactic acid 2.7. Troponin was 0.02 and then 0.07. Free T4 was high and TSH was low. UA was unremarkable. ASSESSMENT/PLAN: 1. Atrial fibrillation with rapid ventricular response. 2. Relative hypotension on admission. 3. Severe aortic stenosis. 4. Stable coronary artery disease. 5. Possible sepsis. PLAN: 1. We will try to slow her down some with an amiodarone drip for now. We will avoid any medications that will affect blood pressure for now given her relative hypotension on arrival. 2. Full dose Lovenox for stroke prophylaxis for now. 3. Dr. Lynch, her primary ict security specialist, follow up in the morning. Job ID: [id number]
[2018-11-20] MEDS: D5 0.9% NS w/ 20 mEq KCl 1,000 ML IV SCH (20:08)
[2018-11-20 20:19] LABS: Prothrombin Time 13.3 SEC (12.0-14.7)
[2018-11-20 20:45] LABS: Troponin I 0.696 ng/mL (< 0.028)
[2018-11-20] MEDS ORDERED: Vancomycin HCl 1.25 GM in Sodium Chloride 0.9% 250 ML 250 ML IVPB SCH (21:00)
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
--- NOTE | 2018-11-20 22:23 | RAD ---
RIGHT KNEE TWO VIEWS: History: Knee injury. FINDINGS: Bones are demineralized. There are marked arthritic changes of the knee, mainly related to the medial compartment but also prominent patellofemoral degenerative change. Vascular calcifications are noted . IMPRESSION: No acute injury. POS: DEIRDRE
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
[2018-11-21] MEDS: Piperacillin/Tazobactam 4.5 GM in Sodium Chloride 0.9% 100 ML IVPB SCH ×4 (00:07→17:24)
[2018-11-21] MEDS: Amiodarone 450 MG in Dextrose 5% in Water 250 ML IVPB SCH ×2 (00:55→11:23)
[2018-11-21] MEDS: Morphine 4 MG/ML VIAL SLOW IVP PRN ×6 (04:03→23:07)
[2018-11-21 05:09] LABS: Anion Gap 13 mmol/L (10-20); BUN (Urea Nitrogen) 35 mg/dL (9.8-20.1); Calc. Creatinine Clearance 0 mL/min (70-130); Calcium 8.9 mg/dL (7.8-10.44); Carbon Dioxide 27 mmol/L (23-31); Chloride 105 mmol/L (98-107); Estimated GFR-MDRD 54; Glucose 138 mg/dL (83-110); Potassium 3.3 mmol/L (3.5-5.1); Sodium 142 mmol/L (136-145)
[2018-11-21 05:21] LABS: #Basophils 0.1 thou/uL (0.0-0.2); #Eosinphils 0.1 thou/uL (0.0-0.7); #Lymphocytes 1.7 thou/uL (1.20-3.40); %Basophils 0.5 % (0.0-1.0); %Eosinophils 0.9 % (0.0-10.0); %Lymphocytes 17.1 % (21.0-51.0); %Monocytes 10.1 % (0.0-10.0); %Neutrophils 71.3 % (42.0-75.0); Hemoglobin 9.6 g/dL (12.0-16.0); Hypochromia SLIGHT = 6-15 cells (100X) (0-5/hpf); MDiff Complete? YES; Mean Corpuscular HGB CONC 29.6 g/dL (32.0-36.0); Mean Corpuscular Hemoglobin 23.7 pg (27.0-31.0); Mean Corpuscular Volume 79.8 fL (78.0-98.0); Mean Platelet Volume 7.3 fL (7.4-10.4); Platelet Count 322 thou/uL (130-400); RBC Distribution Width 17.1 % (11.5-14.5); Red Blood Cell (RBC) Count 4.07 mill/uL (4.20-5.40); White Blood Cell (WBC) Count 9.8 thou/uL (4.8-10.8)
[2018-11-21] MEDS: Enoxaparin Sodium 30 MG/0.3 ML SYRINGE SC SCH (08:58)
--- NOTE | 2018-11-21 10:17 | PDOC.PN ---
- Subjective Encounter Start Date: 11/21/18 Encounter Start Time: 10:15 Ms. Ivory was seen today in follow-up of sepsis, hypothermia, and hypokalemia. She is awake and alert. She complains of pain in both hands. She also complains of back pain. - Objective Resuscitation Status - Order Detail: 11/20/18 17:00 Resuscitation Status Routine Resuscitation Status: FULL: Full Resuscitation MAR Reviewed: Yes Vital Signs & Weight: Vital Signs (12 hours) Temp Pulse Ox 11/21/18 08:00 100 11/21/18 07:20 100 11/21/18 07:00 96.2 F L 11/21/18 03:44 99 Weight Admit Weight 170 lb Weight 2.723 oz Most Recent Monitor Data Heart Rate from ECG 71 NIBP 114/51 NIBP BP-Mean 72 Respiration from ECG 15 SpO2 99 I&O: 11/20/18 11/21/18 11/22/18 06:59 06:59 06:59 Intake Total 2053 Output Total 850 100 Balance 1203 -100 Result Diagrams: 11/21/18 04:28 11/21/18 04:28 Additional Labs: Accuchecks 11/21/18 11/21/18 11/21/18 08:52 06:10 04:09 POC Glucose 114 H 168 H 128 H 11/21/18 11/21/18 11/20/18 02:03 00:11 22:20 POC Glucose 148 H 200 H 146 H 11/20/18 11/20/18 21:13 20:08 POC Glucose 147 H 55 L* Phys Exam - Physical Examination HEENT: PERRLA Respiratory: no wheezing, no rales + coarse breath sounds Cardiovascular: RRR, no significant murmur, no rub Gastrointestinal: soft, non-tender, no distention, positive bowel sounds Musculoskeletal: no edema Dx/Plan (1) Sepsis Code(s): A41.9 - SEPSIS, UNSPECIFIED ORGANISM Status: Acute (2) Hypothermia Code(s): T68.XXXA - HYPOTHERMIA, INITIAL ENCOUNTER Status: Acute (3) Hypokalemia Code(s): E87.6 - HYPOKALEMIA Status: Acute (4) Femur fracture, right Code(s): S72.91XA - UNSP FRACTURE OF RIGHT FEMUR, INIT FOR CLOS FX Status: Acute (5) Paroxysmal atrial fibrillation Code(s): I48.0 - PAROXYSMAL ATRIAL FIBRILLATION Status: Chronic Comment: on Amiodarone (6) Severe aortic stenosis Code(s): I35.0 - NONRHEUMATIC AORTIC (VALVE) STENOSIS Status: Chronic Comment: hopefully can get foot infection under control to allow valve replacement in a couple weeks as scheduled, PFTs tomorrow before discharge in preparation for AV replacement surgery in [place] (7) 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 Code(s): E11.649 - TYPE 2 DIABETES MELLITUS WITH HYPOGLYCEMIA WITHOUT COMA Status: Resolved - Plan * Sepsis- She has a Systemic Inflammatory response, unsure if it is related to infection- there is no obvious source- will continue IV antibiotics, and follow- up of cultures * Hypokalemia- better, but will need to continue to replace * Hypothermia- improved * Atrial fibrillation- she is now in sinus * Hypotension- resolved * Right femur fracture- she says this is old- Age is indeterminate on X-ray- will consult Orthopedic surgery * C7 compression fracture- Neurosurgery has recommended an [place] Collar- and then Outpatient follow-up * Severe - plan is for TAVR in [place]
[2018-11-21] MEDS: D5 0.9% NS w/ 20 mEq KCl 1,000 ML IV SCH (11:23)
--- NOTE | 2018-11-21 11:24 | CON ---
DATE OF CONSULTATION: 11/21/2018 REQUESTING PHYSICIAN: Dr. Mikie Anderson. CONSULTING PHYSICIAN: Miguel Mitchell MD REASON FOR CONSULTATION: Possible right hip fracture. HISTORY OF PRESENT ILLNESS: This is an 83-year-old female who is well known to our service. She presented to our facility yesterday after she was found down by a niece. The patient normally lives at home alone. Upon further workup, the patient was found to be septic. She was admitted to the ICU, although source is unclear at this time. Upon further workup, x-rays of her right hip revealed what appears to be failed hardware and a fracture through the intertrochanteric region. We have been consulted for this reason. Currently at bedside, the patient reports that she has pain in her hands and her back, but denies any right hip pain. She does not recall falling at any point. She states that she normally gets around with a walker or wheelchair. She does call EMS several times a week for lift assist. PAST MEDICAL HISTORY: Significant for diabetes type 2, atrial fibrillation, chronic venous stasis, chronic low back pain, gout, hypertension, hyperlipidemia, chronic kidney disease, severe aortic stenosis, and she is being evaluated in [place] for possible TAVR. PAST SURGICAL HISTORY: Significant for cholecystectomy, appendectomy, hysterectomy, multiple toe amputated from the left foot, several cataracts, cardiac stents, knee replacement surgery and right hip surgery. ALLERGIES: HYDROCODONE. SOCIAL HISTORY: She is . She has 2 children, both of whom have . She is a nonsmoker and a nondrinker. She lives at home alone. FAMILY HISTORY: Reviewed, noncontributory. REVIEW OF SYSTEMS: A 10-point review of systems conducted and otherwise negative except for stated above. PHYSICAL EXAMINATION: VITAL SIGNS: Heart rate is 71, respiratory rate 15, blood pressure 114/51. GENERAL: The patient is awake and alert. She is in no apparent distress. She is pleasant and cooperative with exam today. She answers all questions appropriately. No family is present in the exam room today. HEENT: Head is normocephalic, atraumatic. NECK: Supple. Trachea midline. LUNGS: Breathing is nonlabored. EXTREMITIES: The lower extremities were evaluated. There is evidence of venous stasis with some edema equal to bilateral lower extremities up to the mid maguire. Toes are absent from the left foot. The patient is able to move the ankles and the knees actively without any signs of discomfort. She does voice that the right knee does hurt because of needing a total knee replacement. Her feet are currently floated on a pillow to prevent from pressure sores on the heels. This was removed for examination. The patient is able to flex at the hip. She is able to abduct and adduct at the hip without any problems. I am also able to passively flex and extend at the hip as well as abduct and adduct the hip. She has very little internal and external rotation of the hip. There is no signs of trauma to the lateral portion of the right hip. No ecchymosis. No lesions of the skin. This area is nontender to palpation. Radiographic findings were reviewed by myself as well as Dr. Mitchell as well as a history of radiographic findings. There is a change in her x-ray of her hip. It does appear that there is broken hardware of the trochanteric nail. There does appear to be a intertrochanteric femur fracture and what appears to be a greater trochanteric avulsion. This is a change since prior films were done in 05/2018. ASSESSMENT: Right hip fracture with failed hardware. The patient is nontender on exam to the hip. She does move the hip freely without any signs of discomfort. It is possible that this could be old and have healed. We have not seen her ambulate at this time. She does voice that she is not interested in any surgical intervention. For now, no surgical intervention is anticipated for today. We will further discuss the plan of care with Dr. Mitchell and the patient later this afternoon. Job ID: [id number] [facility]
[2018-11-21] MEDS ORDERED: traMADol HCl 50 MG TAB PO PRN (17:02)
[2018-11-21] MEDS: Vancomycin HCl 1 GM in Premix Bag 1 BAG IVPB SCH (17:24)
[2018-11-21] MEDS: traMADol HCl 50 MG TAB PO PRN ×2 (17:25→21:56)
[2018-11-21] MEDS ORDERED: D5 0.9% NS w/ 20 mEq KCl 1,000 ML IV SCH (17:53)
--- NOTE | 2018-11-21 18:26 | PRG ---
DATE OF SERVICE: 11/21/2018 SUBJECTIVE: Ms. Ivory is doing better today. She is in normal sinus rhythm. Breathing is okay. OBJECTIVE: VITAL SIGNS: Blood pressure 125/92, pulse 88, it is sinus on the monitor. LUNGS: Clear. CARDIAC: Normal S1, normal S2. She has a crescendo-decrescendo aortic stenosis murmur as before. ABDOMEN: Soft and nontender. EXTREMITIES: There is moderate edema. ASSESSMENT: 1. Severe aortic stenosis. 2. Atrial fibrillation with a rapid rate, now back in sinus rhythm. PLAN: 1. She is on antibiotics in case if there is any infection. 2. Orthopedics is also following the patient. Reassess tomorrow. May need to get an Infectious Disease consult to see if Dr. Mills thinks it is safe to place a prosthetic aortic valve on this patient. Job ID: [id number]
[2018-11-21] MEDS ORDERED: Torsemide 20 MG TAB PO SCH (18:30)
[2018-11-21] MEDS: Acetaminophen 325 MG TAB PO PRN (20:58)
--- NOTE | 2018-11-21 20:59 | CON ---
DATE OF CONSULTATION: 11/21/2018 HISTORY OF PRESENT ILLNESS: Ms. vIory is an 83-year-old female, who is admitted with atrial fibrillation. She presented with confusion, but has improved dramatically. I was consulted because of her presence in the critical care unit. She was placed on amiodarone after she was found to be in atrial fibrillation with a rapid ventricular response. She was in a tremendous amount of pain when she arrived. Apparently, once she received 2 mg of morphine, she converted back into sinus rhythm and has been stable since then. PAST MEDICAL HISTORY: Remarkable for 1. Aortic stenosis, being evaluated for a TAVR. 2. History of coronary artery disease with an LAD stent and recently catheterized. Her stent was patent on a recent catheterization. 3. Status post hypoglycemia this admission which may have accounted for her confusion. 4. History of diabetes. 5. History of right hip fracture repair, which is currently fractured again. 6. History of cholecystectomy. 7. History of multiple toe amputations, left foot. 8. Status post appendectomy, hysterectomy, and cataract surgery. SOCIAL HISTORY: She is a nonsmoker and nondrinker. FAMILY: Unknown. REVIEW OF SYSTEMS: 10 point review of systems completed, otherwise negative except for joint pain. PHYSICAL EXAMINATION: GENERAL: Ms. Ivory is an 83-year-old female. VITAL SIGNS: Heart rate is 84, blood pressure 136/57, respiratory rate is 20, oximetry is 92. HEENT: Pupils are equal, sclerae are anicteric. NECK: Supple. LUNGS: Clear. HEART: Regular rhythm. S1 and S2 are normal. She has grade 3/6 systolic murmur. ABDOMEN: Soft and nontender. EXTREMITIES: She has multiple well-healed amputations of her left foot toes. LABORATORY DATA: White count 9.8, hemoglobin 9.6, platelets 322. Sodium 142, potassium 3.3, chloride 105, bicarb 27, BUN 35, creatinine 0.9. Head CT shows no hemorrhage or mass, lesions. Cervical spine CT shows a compression fracture of C7. The pre-existing T3 and T4 compression fractures were unchanged by reading the report. Chest x-ray showed no pulmonary edema or infiltrates. The hip film showed fracture of the proximal portion of the intramedullary hailey in the proximal femur, right hip. The films just showed osteoporosis findings. IMPRESSION: 1. Rapid atrial fibrillation, now in sinus rhythm. 2. Extreme deconditioning with osteoporosis and multiple fractures. It is unclear what the plan is for her hip fracture at this point in time. From a pulmonary standpoint, she appears to be stable. It is surprising she tolerated rapid atrial fibrillation with her critical aortic stenosis. I would be happy to follow with the other physicians. TIME SPENT: A 70-minute consult, with greater than 50% of time was spent in the unit coordinating care. Job ID: [id number] [id number]
[2018-11-22] MEDS: Piperacillin/Tazobactam 4.5 GM in Sodium Chloride 0.9% 100 ML IVPB SCH ×3 (00:29→12:00)
[2018-11-22] MEDS: traMADol HCl 50 MG TAB PO PRN ×5 (01:53→20:23)
[2018-11-22] MEDS: Acetaminophen 325 MG TAB PO PRN ×3 (04:01→16:38)
[2018-11-22] MEDS: Morphine 4 MG/ML VIAL SLOW IVP PRN ×3 (05:48→14:59)
[2018-11-22] MEDS: Enoxaparin Sodium 30 MG/0.3 ML SYRINGE SC SCH (08:18)
[2018-11-22] MEDS: Torsemide 20 MG TAB PO SCH ×2 (08:18→14:57)
[2018-11-22] MEDS ORDERED: Amiodarone 200 MG TAB PO SCH ×2 (10:00→10:15)
--- NOTE | 2018-11-22 10:06 | PRG ---
DATE OF SERVICE: 11/22/2018 SUBJECTIVE: The patient is complaining of pain all over. OBJECTIVE: VITAL SIGNS: Temperature 97.4, pulse 77, respirations 16, O2 saturation 97% on room air, blood pressure 174/73. GENERAL: She is talkative, very irate about her pain situation. HEENT: Unremarkable. NECK: She has a C-collar in place. CARDIOVASCULAR: S1, S2. Regular. LUNGS: Clear. ABDOMEN: Soft. EXTREMITIES: She has gangrenous toes on the right foot. She has many toes amputated on the left foot. LABORATORY DATA: No new labs were done today. ASSESSMENT: 1. Severe aortic stenosis. 2. Sepsis syndrome-source unknown, but may be secondary to the gangrenous toes. 3. Atrial fibrillation. PLAN: I will leave the chronic medical issues up to the [facility]. There are no active pulmonary issues. We will sign off. Job ID: [id number]
[2018-11-22] MEDS ORDERED: Potassium Chloride 20 MEQ TAB PO SCH (10:15)
--- NOTE | 2018-11-22 10:25 | PRG ---
DATE OF SERVICE: 11/22/2018 SUBJECTIVE: Ms. Ivory is out on the general telemetry floor. Her breathing is not normal, but improved from last night. OBJECTIVE: VITAL SIGNS: Blood pressure is high at 174/73, pulse 77. LUNGS: Clear. CARDIAC: She has aortic stenosis murmur. ABDOMEN: Soft, nontender. EXTREMITIES: There are warm feet. LABORATORY DATA: The rhythm strip does show she is in sinus rhythm. ASSESSMENT: 1. Paroxysmal atrial fibrillation with a rapid rate, now in sinus rhythm. 2. Severe aortic stenosis. 3. Recurrent infections. 4. History of hypokalemia. PLAN: 1. Continue to replete potassium. 2. Torsemide. 3. We would recommend Dr. Mills be involved to help us decide whether the patient is a candidate for transcutaneous aortic valve replacement. She is being evaluated for this in [place]. Job ID: [id number]
[2018-11-22] MEDS ORDERED: Polyethylene Glycol 3350 17 GM Packet PO SCH (11:00)
[2018-11-22] MEDS ORDERED: Lubiprostone 24 MCG CAP PO SCH (11:00)
[2018-11-22] MEDS: Ondansetron PF 4 MG/2 ML Vial IVP PRN (12:52)
--- NOTE | 2018-11-22 14:02 | PDOC.PN ---
- Subjective Encounter Start Date: 11/22/18 Encounter Start Time: 14:00 Subjective: feels that she is getting skin erosion from the cervical collar -: she feels she cant eat well with the collar and eants it off -: wants to make sure that she has her Miralax O/W she gets constipated - Objective Resuscitation Status - Order Detail: 11/20/18 17:00 Resuscitation Status Routine Resuscitation Status: FULL: Full Resuscitation MAR Reviewed: Yes Vital Signs & Weight: Vital Signs (12 hours) Temp Pulse Resp BP Pulse Ox 11/22/18 12:04 81 16 176/72 H 94 L 11/22/18 08:18 97 11/22/18 07:41 97.4 F L 77 16 174/73 H 97 11/22/18 03:31 97.2 F L 83 20 159/75 H 97 Weight Admit Weight 170 lb Weight 2.723 oz Most Recent Monitor Data Heart Rate from ECG 92 NIBP 146/100 NIBP BP-Mean 115 Respiration from ECG 17 SpO2 71 I&O: 11/21/18 11/22/18 11/23/18 06:59 06:59 06:59 Intake Total 2053 1253 Output Total 850 1700 Balance 1203 -447 Result Diagrams: 11/21/18 04:28 11/21/18 04:28 Additional Labs: Accuchecks 11/22/18 11/22/18 11/21/18 11:15 05:38 21:09 POC Glucose 177 H 161 H 245 H 11/21/18 11/21/18 17:52 14:50 POC Glucose 123 H 100 Microbiology 11/20/18 14:24 Urine Straight Catheter Urine Culture - Final NO GROWTH AT 48 HOURS 10/11/18 12:52 Toe - Left Bacterial Culture - Final 10/11/18 12:52 Toe - Left Anaerobic Culture - Final Methicillin resistant S.aureus Finegoldia magna 10/11/18 12:48 Foot - Left Bacterial Culture - Final 10/11/18 12:48 Foot - Left Anaerobic Culture - Final Enterococcus faecalis NO ANAEROBES ISOLATED IN 5 DAYS 11/20/18 14:37 Venous blood - Right Arm Blood Culture - Preliminary Specimen has been received and culture in progress. No Growth to date. 11/20/18 14:37 Venous blood - Right Arm Blood Culture - Preliminary NO GROWTH AT 48 HOURS 11/20/18 14:37 Venous blood - Left Arm Blood Culture - Preliminary Specimen has been received and culture in progress. No Growth to date. 11/20/18 14:37 Venous blood - Left Arm Blood Culture - Preliminary NO GROWTH AT 48 HOURS 11/20/18 14:24 Urine Straight Catheter Urine Culture - Preliminary NO GROWTH AT 24 HOURS Phys Exam - Physical Examination Constitutional: NAD sitting in bed,slightly agiatated and fidgety HEENT: PERRLA, moist MMs, sclera anicteric, oral pharynx no lesions Cervical collar in place Neck: no nodes, no JVD, supple, full ROM Respiratory: no wheezing, no rales, no rhonchi, clear to auscultation bilateral Cardiovascular: RRR loud systolic murmur Gastrointestinal: soft, non-tender, no distention, positive bowel sounds Musculoskeletal: no edema, pulses present Left toe amputated in entirety Neurological: non-focal, normal sensation, moves all 4 limbs Psychiatric: normal affect, A&O x 3 Skin: no rash Dx/Plan (1) Sepsis Code(s): A41.9 - SEPSIS, UNSPECIFIED ORGANISM Status: Resolved (2) Paroxysmal atrial fibrillation with RVR Code(s): I48.0 - PAROXYSMAL ATRIAL FIBRILLATION Status: Acute Comment: on Amiodarone. (3) C7 cervical fracture Code(s): S12.600A - UNSP DISP FX OF SEVENTH CERVICAL VERTEBRA, INIT FOR CLOS FX Status: Acute Qualifiers: Encounter type: initial encounter Fracture type: closed Fracture alignment: nondisplaced Comment: Continue Cervical Collar .NS also following (4) Femur fracture, right Code(s): S72.91XA - UNSP FRACTURE OF RIGHT FEMUR, INIT FOR CLOS FX Status: Acute Qualifiers: Fracture type: closed Fracture alignment: nondisplaced (5) CKD (chronic kidney disease) stage 4, GFR 15-29 ml/min Code(s): N18.4 - CHRONIC KIDNEY DISEASE, STAGE 4 (SEVERE) Status: Chronic Comment: Improving (6) Chronic diastolic heart failure Code(s): I50.32 - CHRONIC DIASTOLIC (CONGESTIVE) HEART FAILURE Status: Chronic Comment: stable (7) Coronary artery disease Code(s): I25.10 - ATHSCL HEART DISEASE OF [place] CORONARY ARTERY W/O ANG PCTRS Status: Chronic Qualifiers: Coronary Disease-Associated Artery/Lesion type: [place] artery [place] vs. transplanted heart: [place] heart Associated angina: without angina Qualified Code(s): I25.10 - Atherosclerotic heart disease of [place] coronary artery without angina pectoris Comment: on ASA,statin,BB (8) DM type 2 (diabetes mellitus, type 2) Status: Chronic Qualifiers: Diabetes mellitus shelter insulin use: with terminal computer operator use Comment: Patient still at half dose of Lantus, with decent BP control, suspect diet not as well controlled at home (9) Dyslipidemia Code(s): E78.5 - HYPERLIPIDEMIA, UNSPECIFIED Status: Chronic Comment: on statin (10) GERD (gastroesophageal reflux disease) Code(s): K21.9 - GASTRO-ESOPHAGEAL REFLUX DISEASE WITHOUT ESOPHAGITIS Status: Chronic Qualifiers: Esophagitis presence: esophagitis presence not specified Qualified Code(s) : K21.9 - Gastro-esophageal reflux disease without esophagitis Comment: on PPI (11) Hypertension Code(s): I10 - ESSENTIAL (PRIMARY) HYPERTENSION Status: Chronic Qualifiers: Hypertension type: essential hypertension Qualified Code(s): I10 - Essential (primary) hypertension Comment: controlled (12) Severe aortic stenosis by prior echocardiogram Code(s): I35.0 - NONRHEUMATIC AORTIC (VALVE) STENOSIS Status: Chronic Comment: To have TAVR soon - Plan continue antibiotics, PT/OT, incentive spirometry, DVT proph w/SCDs restarted on Home meds as below.cont Amiodarone-NSR for now -: recent Toe MRSA & E.fevcalis infection-s/p amputation -: currently no signs of infection except hypothermia on presentation.on Vanco -: will consul ID for ABx recs -: recheck lytes and replace as needed.HD stable.OT/PT * . Poor reserve and poor terminal computer operator prognosis with multiple repeat hospitalizations but remains full code AM labs Review of Systems - Review of Systems Constitutional: weakness, malaise. negative: fever, chills, sweats, other ENT: negative: Ear Pain, Ear Discharge, Nose Pain, Nose Discharge, Nose Congestion, Mouth Pain, Mouth Swelling, Throat Pain, Throat Swelling, Other Cardiovascular: negative: chest pain, palpitations, orthopnea, paroxysmal nocturnal dyspnea, edema, light headedness, other Gastrointestinal: Nausea Genitourinary: negative: Dysuria, Frequency, Incontinence, Hematuria, Retention , Other Musculoskeletal: negative: Neck Pain, Shoulder Pain, Arm Pain, Back Pain, Hand Pain, Leg Pain, Foot Pain, Other Neurological: negative: Weakness, Numbness, Incoordination, Change in Speech, Confusion, Seizures, Other - Medications/Allergies Allergies/Adverse Reactions: Allergies Allergy/AdvReac Type Severity Reaction Status Date / Time hydrocodone [From [place]] Allergy Hives Verified 10/10/18 18:06 Medications: Current Medications Acetaminophen (Tylenol) 650 mg PO Q6H PRN PRN Reason: Mild Pain (1-3) Last Admin: 11/22/18 10:04 Dose: 650 mg Amiodarone HCl (Cordarone) 200 mg PO TID [facility] Atorvastatin Calcium (Lipitor) 10 mg PO HS [facility] Cholecalciferol (Vitamin D3) 5,000 units PO DAILY [facility] Cyclobenzaprine HCl (Flexeril) 10 mg PO TID PRN PRN Reason: Muscle Spasm Dextrose/Water (Dextrose 50%) 25 gm SLOW IVP PRN PRN PRN Reason: Hypoglycemia Enoxaparin Sodium (Lovenox) 30 mg SC 0900 [facility] Last Admin: 11/22/18 08:18 Dose: 30 mg Gabapentin (Neurontin) 600 mg PO TID [facility] Glucagon (Glucagon) 1 mg IM PRN PRN PRN Reason: Hypoglycemia Dextrose/Water (D5w) 1,000 mls @ 0 mls/hr IV .Q0M PRN PRN Reason: Hypoglycemia Piperacillin Sod/Tazobactam (Sod 4.5 gm/ Sodium Chloride) 100 mls @ 200 mls/hr IVPB Q6HR [facility] Last Admin: 11/22/18 12:00 Dose: 100 mls Potassium Chloride 40 meq/ (Sodium Chloride) 270 mls @ 135 mls/hr IVPB ASDIR PRN PRN Reason: FOR SERUM K+ 2.5 - 3.5 Potassium Chloride 40 meq/ (Device) 100 mls @ 50 mls/hr IVPB ASDIR PRN PRN Reason: FOR SERUM K+ 2.5 - 3.5 Magnesium Sulfate 1 gm/ Sodium (Chloride) 102 mls @ 102 mls/hr IV PRN PRN PRN Reason: MAG LEVEL 1.4 - 2.0 Magnesium Sulfate 2 gm/ Device 50 mls @ 50 mls/hr IVPB ASDIR PRN PRN Reason: MAGNESIUM < 1.4 Potassium Phosphate 9 mmol/ (Sodium Chloride) 103 mls @ 25.75 mls/hr IVPB ASDIR PRN PRN Reason: Phosphate 1.0-1.8 Potassium Phosphate 12 mmol/ (Sodium Chloride) 254 mls @ 63.5 mls/hr IV ASDIR PRN PRN Reason: Serum phosphate 0.5-0.9 Potassium Phosphate 15 mmol/ (Sodium Chloride) 255 mls @ 63.75 mls/hr IV ASDIR PRN PRN Reason: Serum Phos < 0.5 Vancomycin HCl 1 gm/ Device 200 mls @ 200 mls/hr IVPB 1600 KASSANDRA Last Admin: 11/21/18 17:24 Dose: 200 mls Isosorbide Dinitrate (Isordil) 10 mg PO BID [facility] Levothyroxine Sodium (Synthroid) 112 mcg PO 0600 KASSANDRA Levothyroxine Sodium (Synthroid) 25 mcg PO 0600 [facility] Lidocaine (Lidoderm 5% Patch) 1 patch TD DAILY [facility] Lubiprostone (Amitiza) 24 mcg PO BID-WM [facility] Magnesium Oxide (Magnesium Oxide) 400 mg PO BIDPRN PRN PRN Reason: FOR SERUM MAG 1.4 - 2.0 Magnesium Oxide (Magnesium Oxide) 800 mg PO PRN PRN PRN Reason: FOR SERUM MAG < 1.4 Miscellaneous Medication (Phos-Nak) 1 pkt PO TIDPRN PRN PRN Reason: FOR PHOS LEVEL 1.0 - 1.8 Miscellaneous Medication (Phos-Nak) 2 pkt PO TIDPRN PRN PRN Reason: FOR PHOS LEVEL 0.5 - 1.0 Miscellaneous Medication (Pharmacy To Dose) 1 each IVPB PRN PRN PRN Reason: Pharmacy to dose Miscellaneous Medication (Movantik) 12.5 mg PO DAILY-AC [facility] Miscellaneous Medication (Lidocaine Patch Removal) 1 each TOP 2100 [facility] Morphine Sulfate (Morphine) 2 mg SLOW IVP Q4H PRN PRN Reason: Pain Last Admin: 11/22/18 10:00 Dose: 2 mg Ccu Electrolyte (Replacement Protocol) 0 each FS PRN PRN PRN Reason: FOR ELECTROLYTE REPLACEMENT Ondansetron HCl (Zofran Odt) 4 mg PO Q6H PRN PRN Reason: Nausea/Vomiting Ondansetron HCl (Zofran) 4 mg IVP Q6H PRN PRN Reason: Nausea/Vomiting Last Admin: 11/22/18 12:52 Dose: 4 mg Pantoprazole Sodium (Protonix) 40 mg PO DAILY KASSANDRA Polyethylene Glycol (Miralax) 17 gm PO DAILY KASSANDRA Potassium Chloride (K-Dur) 40 meq PO ASDIR PRN PRN Reason: FOR SERUM K+ 2.5 - 3.5 Potassium Chloride (Klor-Con) 40 meq PER TUBE ASDIR PRN PRN Reason: FOR SERUM K+ 2.5-3.5 Potassium Chloride (K-Dur) 20 meq PO BID-WM KASSANDRA Sodium Chloride (Flush - Normal Saline) 10 ml IVF Q12HR KASSANDRA Sodium Chloride (Flush - Normal Saline) 10 ml IVF PRN PRN PRN Reason: Saline Flush Torsemide (Demadex) 40 mg PO BID@0900,1400 KASSANDRA Last Admin: 11/22/18 08:18 Dose: 40 mg Tramadol HCl (Ultram) 50 mg PO Q4H PRN PRN Reason: Mild Pain (1-3) Tramadol HCl (Ultram) 100 mg PO Q4H PRN PRN Reason: Mild-Moderate Pain (1-5) Last Admin: 11/22/18 12:00 Dose: 100 mg
[2018-11-22] MEDS: Gabapentin 300 MG CAP PO SCH ×2 (14:58→20:21)
[2018-11-22] MEDS: Amiodarone 200 MG TAB PO SCH ×2 (14:58→20:20)
[2018-11-22 15:21] LABS: Vancomycin, Trough 11.7 ug/mL
[2018-11-22] MEDS: Potassium Chloride 20 MEQ TAB PO SCH (16:37)
[2018-11-22] MEDS: Lubiprostone 24 MCG CAP PO SCH (16:43)
[2018-11-22] MEDS ORDERED: Vancomycin HCl 1.25 GM in Sodium Chloride 0.9% 250 ML 250 ML IVPB SCH (17:00)
[2018-11-22] MEDS: Vancomycin HCl 1 GM in Premix Bag 1 BAG IVPB SCH (17:04)
[2018-11-22] MEDS: Isosorbide Dinitrate 5 MG TAB PO SCH (20:20)
[2018-11-22] MEDS: Atorvastatin Calcium 10 MG TAB PO SCH (20:20)
[2018-11-22] MEDS: Cyclobenzaprine 10 MG TAB PO PRN (20:27)
--- NOTE | 2018-11-22 22:58 | CON ---
DATE OF CONSULTATION: 11/22/2018 REASON FOR CONSULTATION: Concern of possible sepsis. HISTORY OF PRESENT ILLNESS: An 83-year-old full who has history of type 2 diabetes, atrial fibrillation, venous stasis, chronic low back pain and gout, and severe aortic stenosis, who has been evaluated in [place] for possible TAVR and developed altered mental status, had a syncopal event, was found on the floor, she was confused and was brought by EMS. On arrival, her serum glucose was 20. She was hypothermic, was started on broad-spectrum coverage and given rewarming therapy and given dextrose intravenously with improvement. Right now, she is awake and alert. She has a neck brace. She denies any headaches. No visual symptoms. No shortness of breath or cough. No sputum production. She is constipated, but that is a chronic problem. No back pain. No joint symptoms. PAST MEDICAL HISTORY: Type 2 diabetes, atrial fibrillation, venous stasis, chronic low back pain, gout, hypertension, hyperlipidemia, renal insufficiency, severe aortic stenosis, been evaluated for TAVR. PAST SURGICAL HISTORY: Cholecystectomy, appendectomy, hysterectomy, toe amputations. She has chronic ulcers in the right toe tips, but those are improving under Dr. Quinteros's care. ALLERGIES: HYDROCODONE. SOCIAL HISTORY: . Never smoker. FAMILY HISTORY: Breast cancer, colon cancer. CURRENT MEDICATIONS: 1. Cordarone. 2. Tylenol. 3. Lipitor. 4. Vitamin D. 5. Flexeril. 6. Dextrose. 7. Lovenox. 8. Neurontin. 9. Glucagon. 10. Isordil. 11. Synthroid. 12. Lidoderm. 13. Amitiza. 14. Magnesium. 15. Ondansetron. 16. Piperacillin and tazobactam. 17. Vancomycin. PHYSICAL EXAMINATION: VITAL SIGNS: Temperature has been normal throughout the hospital stay. Other vital signs are not particularly remarkable. Some elevation of systolic blood pressure. SKIN: She has a mild erythema in the perineal area and there is areas of ulceration in the right lateral knee from the fall, superficial lacerations, some bruising noted in the right upper extremity as well. Peripheral IV access. She is voiding spontaneously in the diaper. NECK: She has a neck collar. GENERAL: Awake and oriented. HEENT: Ocular movements conjugate. Oral cavity is not particularly remarkable. LUNGS: Symmetric, clear breath sounds. HEART: S1 and S2, regular rate. ABDOMEN: Soft, not distended or tender. No ascites. No bladder distention. MUSCULOSKELETAL: No joint inflammatory activity. Pulses are 1+ in dorsalis pedis. No edema. NEUROLOGIC: Follows commands. Oriented, pleasant. LABORATORY DATA: White cell count is 18,000, down to 9.8, hemoglobin 12 and 9.6, MCV 78, platelets 413 and 322. Neutrophil percentage is 82 and 71. INR 0.9. Sodium 142, creatinine 0.99. Urinalysis was normal. Blood culture has been negative thus far 48 hours. Urine culture, no growth. IMAGING STUDIES: Include a C-spine CT which showed diffuse bony diminished demineralization, compression injury C7 about 40%, but no retropulsion noted. There is a T3 compression fracture similar to prior exam. The chest x-ray and brain CT were not particularly remarkable. Hip and knee x-rays with no fractures. ASSESSMENT: Type 2 diabetes, renal insufficiency, edema in lower extremities, recent increase in dose of diuretics, which led to decrease in GFR and likely than hypoglycemic episode which was associated with her syncopal event and fall. DISCUSSION: I believe in the face of the absence of evidence of inflammatory process/infection with a negative cultures, I would advise discontinuation of antimicrobial therapy. It is likely that sequence of events started with decrease in GFR and then hypoglycemia and the change in mental status which led to the fall. Neutrophilia is basically response to the stress event and I do not think it reflects an infectious process. Job ID: [id number]
[2018-11-23] MEDS: traMADol HCl 50 MG TAB PO PRN ×2 (00:46→20:35)
[2018-11-23] MEDS: Acetaminophen 325 MG TAB PO PRN ×2 (03:02→16:39)
[2018-11-23 05:49] LABS: #Eosinphils 0.1 thou/uL (0.0-0.7); #Lymphocytes 1.4 thou/uL (1.20-3.40); #Neutrophils 6.7 thou/uL (1.40-6.50); %Basophils 0.4 % (0.0-1.0); %Eosinophils 0.9 % (0.0-10.0); %Lymphocytes 15.5 % (21.0-51.0); %Monocytes 10.7 % (0.0-10.0); %Neutrophils 72.5 % (42.0-75.0); Hemoglobin 8.4 g/dL (12.0-16.0); Mean Corpuscular HGB CONC 29.1 g/dL (32.0-36.0); Mean Corpuscular Hemoglobin 23.3 pg (27.0-31.0); Mean Corpuscular Volume 80.2 fL (78.0-98.0); Mean Platelet Volume 7.5 fL (7.4-10.4); Platelet Count 280 thou/uL (130-400); RBC Distribution Width 17.4 % (11.5-14.5); Red Blood Cell (RBC) Count 3.59 mill/uL (4.20-5.40); White Blood Cell (WBC) Count 9.3 thou/uL (4.8-10.8)
[2018-11-23 06:02] LABS: Anion Gap 10 mmol/L (10-20); BUN (Urea Nitrogen) 27 mg/dL (9.8-20.1); Calc. Creatinine Clearance 0 mL/min (70-130); Calcium 9.5 mg/dL (7.8-10.44); Carbon Dioxide 32 mmol/L (23-31); Chloride 101 mmol/L (98-107); Estimated GFR-MDRD 45; Glucose 144 mg/dL (83-110); Potassium 3.1 mmol/L (3.5-5.1); Sodium 140 mmol/L (136-145)
[2018-11-23] MEDS: Levothyroxine Sodium 25 MCG TAB PO SCH (06:25)
[2018-11-23] MEDS: Levothyroxine Sodium 112 MCG TAB PO SCH (06:25)
[2018-11-23] MEDS: Morphine 4 MG/ML VIAL SLOW IVP PRN ×2 (06:26→12:10)
[2018-11-23] MEDS: Lubiprostone 24 MCG CAP PO SCH ×2 (08:30→16:41)
[2018-11-23] MEDS: Potassium Chloride 20 MEQ TAB PO SCH ×2 (08:30→16:40)
[2018-11-23] MEDS: Amiodarone 200 MG TAB PO SCH ×3 (08:31→20:33)
[2018-11-23] MEDS: Enoxaparin Sodium 30 MG/0.3 ML SYRINGE SC SCH (08:31)
[2018-11-23] MEDS: Gabapentin 300 MG CAP PO SCH ×3 (08:32→20:33)
[2018-11-23] MEDS: Polyethylene Glycol 3350 17 GM Packet PO SCH (08:32)
[2018-11-23] MEDS: Lidocaine 5% Patch TD SCH (08:32)
[2018-11-23] MEDS: Isosorbide Dinitrate 5 MG TAB PO SCH ×2 (08:32→20:33)
[2018-11-23] MEDS: Ondansetron PF 4 MG/2 ML Vial IVP PRN (08:43)
[2018-11-23] MEDS: Torsemide 20 MG TAB PO SCH ×2 (08:43→14:56)
[2018-11-23] MEDS ORDERED: Pantoprazole 40 MG GRANULES PACKET PO SCH (09:00)
[2018-11-23] MEDS ORDERED: Levothyroxine 150 MCG TAB PO SCH (09:00)
[2018-11-23] MEDS ORDERED: HumaLOG 300 UNITS/3 ML VIAL SC PRN (11:34)
[2018-11-23] MEDS ORDERED: Dextrose 50% Abboject 50 ML SYRINGE SLOW IVP PRN (11:34)
[2018-11-23] MEDS ORDERED: Dextrose 5% in Water 1,000 ML IV PRN (11:34)
[2018-11-23] MEDS: Ondansetron ODT 4 MG TAB PO PRN ×2 (12:10→18:13)
--- NOTE | 2018-11-23 15:03 | PDOC.PN ---
- Subjective Encounter Start Date: 11/23/18 Encounter Start Time: 14:45 Subjective: f/u for fall, hypoglycemia with C7 vertebral fx non-operatively managed. -: Feels ok overall. Ambulating with RW and PT. - Objective Resuscitation Status - Order Detail: 11/20/18 17:00 Resuscitation Status Routine Resuscitation Status: FULL: Full Resuscitation MAR Reviewed: Yes Vital Signs & Weight: Vital Signs (12 hours) Temp Pulse Pulse Pulse Resp BP BP 11/23/18 12:06 97.9 F 82 18 11/23/18 09:52 75 82 126/62 127/82 11/23/18 08:29 98.3 F 80 18 11/23/18 04:10 97.7 F 80 20 BP Pulse Ox 11/23/18 12:06 147/67 H 95 11/23/18 09:52 11/23/18 08:29 138/79 97 11/23/18 04:10 133/70 95 Weight Admit Weight 156 lb 11.2 oz Weight 156 lb 11.2 oz Most Recent Monitor Data Heart Rate from ECG 92 NIBP 146/100 NIBP BP-Mean 115 Respiration from ECG 17 SpO2 71 I&O: 11/22/18 11/23/18 11/24/18 06:59 06:59 06:59 Intake Total 1253 3180 Output Total 1700 1600 Balance -447 1580 Result Diagrams: 11/23/18 05:17 11/23/18 05:17 Additional Labs: Accuchecks 11/23/18 11/23/18 11/22/18 11:00 05:56 20:39 POC Glucose 298 H 207 H 153 H 11/22/18 16:34 POC Glucose 122 H Microbiology 11/20/18 14:24 Urine Straight Catheter Urine Culture - Final NO GROWTH AT 48 HOURS 11/20/18 14:37 Venous blood - Right Arm Blood Culture - Preliminary NO GROWTH AT 48 HOURS 11/20/18 14:37 Venous blood - Left Arm Blood Culture - Preliminary NO GROWTH AT 48 HOURS Laboratory Tests 11/20/18 11/20/18 11/21/18 14:12 14:12 04:28 WBC 18.0 H Hgb 12.2 Potassium 2.7 L* 3.3 L Creatinine 1.09 0.99 11/21/18 04:28 WBC 9.8 Hgb 9.6 L Potassium Creatinine EKG Reviewed by me: Yes (Tele - SR) Phys Exam - Physical Examination Constitutional: NAD HEENT: PERRLA, sclera anicteric, oral pharynx no lesions Neck: no nodes, no JVD, supple, full ROM Respiratory: no wheezing, no rales, no rhonchi, clear to auscultation bilateral S1, S2 with II/ ARIELA in RUSB Cardiovascular: RRR, no rub, gallop Gastrointestinal: soft, non-tender, no distention, positive bowel sounds Musculoskeletal: pulses present, edema present Neurological: normal sensation, moves all 4 limbs Psychiatric: A&O x 3 Skin: normal turgor, cap refill <2 seconds Dx/Plan (1) Hypokalemia Code(s): E87.6 - HYPOKALEMIA Status: Acute Comment: KCL 40meq BID, serial K + monitoring (2) C7 cervical fracture Code(s): S12.600A - UNSP DISP FX OF SEVENTH CERVICAL VERTEBRA, INIT FOR CLOS FX Status: Acute Qualifiers: Encounter type: initial encounter Fracture type: closed Fracture alignment: nondisplaced Comment: Continue Cervical Collar, non-operative mgmt, pain control (3) Femur fracture, right Code(s): S72.91XA - UNSP FRACTURE OF RIGHT FEMUR, INIT FOR CLOS FX Status: Acute Qualifiers: Fracture type: closed Fracture alignment: nondisplaced Comment: Non-operative mgmt, PT for ambulation with RW, fall risk, likely with home PT (4) Paroxysmal atrial fibrillation with RVR Code(s): I48.0 - PAROXYSMAL ATRIAL FIBRILLATION Status: Acute Comment: Continue Amiodarone, current SR (5) CKD (chronic kidney disease), stage III Code(s): N18.3 - CHRONIC KIDNEY DISEASE, STAGE 3 (MODERATE) Status: Chronic Comment: Stable, monitor renal fx, avoid nephrotoxic meds and limit contrast exposure (6) DM type 2 (diabetes mellitus, type 2) Status: Chronic Qualifiers: Diabetes mellitus custodial insulin use: with custodial use Comment: Labile, ISS, serial accuchecks - Plan 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
--- NOTE | 2018-11-23 17:53 | CON ---
DATE OF CONSULTATION: 11/23/2018 REASON FOR CONSULTATION: Type 2 diabetes with hypoglycemia and hypothermia. CANCELED DICTATION Job ID: [id number]
[2018-11-23] MEDS: HumaLOG 300 UNITS/3 ML VIAL SC PRN (18:58)
[2018-11-23] MEDS: Atorvastatin Calcium 10 MG TAB PO SCH (20:33)
[2018-11-23] MEDS: Lidocaine Patch Removal 1 EACH TOP SCH (20:34)
[2018-11-24] MEDS: Morphine 4 MG/ML VIAL SLOW IVP PRN ×2 (00:49→08:25)
[2018-11-24] MEDS: traMADol HCl 50 MG TAB PO PRN (03:59)
[2018-11-24] MEDS: Levothyroxine Sodium 112 MCG TAB PO SCH (06:11)
[2018-11-24] MEDS: Levothyroxine Sodium 25 MCG TAB PO SCH (06:12)
[2018-11-24] MEDS: Enoxaparin Sodium 30 MG/0.3 ML SYRINGE SC SCH (08:15)
[2018-11-24] MEDS: Gabapentin 300 MG CAP PO SCH ×3 (08:16→20:24)
[2018-11-24] MEDS: Isosorbide Dinitrate 5 MG TAB PO SCH ×2 (08:16→20:24)
[2018-11-24] MEDS: Amiodarone 200 MG TAB PO SCH ×3 (08:16→20:24)
[2018-11-24] MEDS: Potassium Chloride 20 MEQ TAB PO SCH ×2 (08:16→17:58)
[2018-11-24] MEDS: Lubiprostone 24 MCG CAP PO SCH ×2 (08:17→17:58)
[2018-11-24] MEDS: Lidocaine 5% Patch TD SCH (08:17)
[2018-11-24] MEDS: Polyethylene Glycol 3350 17 GM Packet PO SCH (08:17)
[2018-11-24] MEDS: Torsemide 20 MG TAB PO SCH ×2 (08:24→15:22)
--- NOTE | 2018-11-24 09:53 | PRG ---
DATE OF SERVICE: 11/24/2018 SUBJECTIVE: Ms. Ivoyr feels weak today. No chest pain. She had a breathing somewhat better. OBJECTIVE: VITAL SIGNS: Blood pressure 125/60, pulse 80. LUNGS: Clear. CARDIAC: Aortic stenosis, murmur as before. ABDOMEN: Soft and nontender. EXTREMITIES: Moderate edema. ASSESSMENT: 1. Aortic stenosis, severe. 2. Hypokalemia. 3. Anemic. 4. Her potassium level was 3.1. 5. Diabetes. PLAN: 1. Replete potassium. 2. Check iron level. She may need intravenous iron. Job ID: [id number]
[2018-11-24 10:42] LABS: Iron 19 ug/dL (50-170); Iron Binding Capacity, Total 194 mcg/dL (265-497)
--- NOTE | 2018-11-24 10:45 | PQF ---
DAVID JIMENEZ ROSALBA KEYES DO [id number] CLINICAL DOCUMENTATION IMPROVEMENT CLARIFICATION FORM: ICD-10 Updated PLEASE DO AN ADDENDUM TO THE PROGRESS NOTE WITH ANY DOCUMENTATION UPDATES OR ADDITIONS AND CARRY THROUGH TO DC SUMMARY. THANK YOU. DATE: 11/24/2018 ATTN: DR. Justyna KEYES Please exercise your independent, professional judgment in responding to the clarification form. Clinical indicators are provided on the bottom of this form for your review. Please check appropriate box(s) to clarify if the following diagnosis has been ruled in or ruled out: SEPSIS [ ] Ruled in diagnosis [ ] Continue to treat [ ] Resolved [ x ] Ruled out diagnosis [ ] Other diagnosis [ ] Unable to determine In addition, please specify: Present on Admission (POA): [ ] Yes [ x ] No [ ] Unable to determine For continuity of documentation, please document condition throughout progress notes and discharge summary. Thank You. CLINICAL INDICATORS - SIGNS / SYMPTOMS / LABS 11/20 ED PHYSICIAN DX : SEVERE SEPSIS W/O SEPTIC SHOCK 11/20 H & P (KRISTOPHER ) ASSESSMENT 1) WITH REGARD TO SEPSIS, THE SOURCE IS NOT OBVIOUS AT THIS POINT, POSSIBLE CELLULITIS 11/20 (HARPER) ASSESSMENT : 5) POSSIBLE SEPSIS 11/21 PN (KRISTOPHER) PLAN: SEPSIS - SHE HAS A SYSTEMIC INFLAMMATORY RESPONSE, UNSURE IF IT IS RELATED TO INFECTION, THERE IS NO OBVIOUS SOURCE- WILL CONTINUE IV ANTIBIOTICS AND FOLLOW UP OF CULTURES 11/22 PN (DONITA) ASSESSMENT 2) SEPSIS SYNDROME-SOURCE UNKNOWN BUT MAY BE SECONDARY TO THE GANGRENOUS TOES 11/22 PN (THEODORE) DX/PLAN 1) SEPSIS, UNSPECIFIED STATUS- RESOLVED 11/22 CONSULT (RADHA) -DISCUSSION I BELIEVE IN THE FACE OF THE ABSENCE OF EVIDENCE OF INFLAMMATORY PROCESS/INFECTION WITH A NEGATIVE CULTURES, I WOULD ADVISE DISCONTINUATION OF ANTIMICROBIAL THERAPY. IT IS LIKELY THAT SEQUENCE OF EVENTS STARTED WITH DECREASE IN GFR AND THEN HYPOGLYCEMIA AND THE CHANGE IN MENTAL STATUS WHICH LED TO THE FALL. NEUTROPHILIA IS BASICALLY RESPONSE TO THE STRESS EVENT AND I DO NOT THINK IT REFLECTS AN INFECTIONS PROCESS. 11/20 WBC 18.0 LACTIC ACID 2.7 11/20 ED VITALS RECTAL TEMP 96.3, P 150, RESP 28 RISK: ADVANCED AGE MULTIPLE COMORBIDITIES DIABETES MULTIPLE LOWER EXTREMITIES WOUNDS TREATMENTS ZOSYN IV (11/20-11/22) VANC IV (11/21-11/22) BLOOD CULTURE THANK YOU! MAURICE (This form is maintained as a part of the permanent medical record) 2014 [employer], [employer]. All Rights Reserved PHOEBE [email or web address] [phone] MTDD
[2018-11-24 10:50] LABS: Anisocytosis SLIGHT = 6-15 cells (100X) (0-5/hpf); Band 9 % (5-11); Hemoglobin 8.1 g/dL (12.0-16.0); Hypochromia SLIGHT = 6-15 cells (100X) (0-5/hpf); Lymphocytes 10 % (21-51); MDiff Complete? YES; Mean Corpuscular HGB CONC 29.1 g/dL (32.0-36.0); Mean Corpuscular Hemoglobin 23.6 pg (27.0-31.0); Mean Corpuscular Volume 81.3 fL (78.0-98.0); Mean Platelet Volume 7.4 fL (7.4-10.4); Microcytosis SLIGHT = 6-15 cells (100X) (0-5/hpf); Monocytes 5 % (0-10); Neutrophil 76 % (42-75); Platelet Count 253 thou/uL (130-400); Platelet Morphology Comment Appears Adequate; RBC Distribution Width 17.5 % (11.5-14.5); Red Blood Cell (RBC) Count 3.44 mill/uL (4.20-5.40); White Blood Cell (WBC) Count 9.8 thou/uL (4.8-10.8)
[2018-11-24 11:40] LABS: Anion Gap 13 mmol/L (10-20); BUN (Urea Nitrogen) 35 mg/dL (9.8-20.1); Calc. Creatinine Clearance 26 mL/min (70-130); Calcium 9.3 mg/dL (7.8-10.44); Carbon Dioxide 29 mmol/L (23-31); Chloride 100 mmol/L (98-107); Estimated GFR-MDRD 26; Glucose 199 mg/dL (83-110); Sodium 138 mmol/L (136-145)
[2018-11-24] MEDS ORDERED: Potassium Chloride 20 MEQ TAB PO SCH (12:00)
--- NOTE | 2018-11-24 16:29 | PDOC.PN ---
- Subjective Encounter Start Date: 11/24/18 Encounter Start Time: 16:25 Subjective: f/u for fall, C7 and R femur fx non-operatively managed. Nsg reports -: confusion and lethargy today. Received Morphine sulfate x 2 doses. - Objective Resuscitation Status - Order Detail: 11/20/18 17:00 Resuscitation Status Routine Resuscitation Status: FULL: Full Resuscitation MAR Reviewed: Yes Vital Signs & Weight: Vital Signs (12 hours) Temp Pulse Resp BP Pulse Ox 11/24/18 08:00 98.4 F 74 18 133/63 96 Weight Admit Weight 156 lb 11.2 oz Weight 156 lb 11.2 oz Most Recent Monitor Data Heart Rate from ECG 92 NIBP 146/100 NIBP BP-Mean 115 Respiration from ECG 17 SpO2 71 I&O: 11/23/18 11/24/18 11/25/18 06:59 06:59 06:59 Intake Total 3180 1380 Output Total 1600 820 Balance 1580 560 Result Diagrams: 11/24/18 09:49 11/24/18 09:49 Additional Labs: Accuchecks 11/24/18 11/24/18 11/23/18 11:28 05:15 20:22 POC Glucose 187 H 173 H 229 H 11/23/18 17:01 POC Glucose 186 H Microbiology 11/20/18 14:24 Urine Straight Catheter Urine Culture - Final NO GROWTH AT 48 HOURS 11/20/18 14:37 Venous blood - Right Arm Blood Culture - Preliminary NO GROWTH AT 48 HOURS 11/20/18 14:37 Venous blood - Left Arm Blood Culture - Preliminary NO GROWTH AT 48 HOURS Laboratory Tests 11/20/18 11/20/18 11/21/18 14:12 14:12 04:28 WBC 18.0 H Hgb 12.2 Potassium 2.7 L* 3.3 L Creatinine 1.09 0.99 11/21/18 04:28 WBC 9.8 Hgb 9.6 L Potassium Creatinine EKG Reviewed by me: Yes (Tele - SR) Phys Exam - Physical Examination Constitutional: NAD lethargic, garbled speech HEENT: PERRLA, sclera anicteric, oral pharynx no lesions Neck: no nodes, no JVD, supple, full ROM Respiratory: no wheezing, no rales, no rhonchi, clear to auscultation bilateral S1, S2 Cardiovascular: RRR, no rub, gallop Gastrointestinal: soft, non-tender, no distention, positive bowel sounds Musculoskeletal: pulses present, edema present Neurological: moves all 4 limbs A x O x 1 Skin: normal turgor, cap refill <2 seconds Dx/Plan (1) Acute metabolic encephalopathy Code(s): G93.41 - METABOLIC ENCEPHALOPATHY Status: Acute Comment: Likely iatrogenic due to medications, d/c all Morphine sulfate and limit psychotropes and sedating medications (2) Acute on chronic systolic and diastolic heart failure, NYHA class 3 Code(s): I50.43 - ACUTE ON CHRONIC COMBINED SYSTOLIC AND DIASTOLIC HRT FAIL Status: Acute Comment: Likely iatrogenic, hold Torsemide, IVF's 50ml/h, hold Losartan, recheck creatinine in am (3) Hypokalemia Code(s): E87.6 - HYPOKALEMIA Status: Acute Comment: KCL 40meq BID, serial K + monitoring (4) C7 cervical fracture Code(s): S12.600A - UNSP DISP FX OF SEVENTH CERVICAL VERTEBRA, INIT FOR CLOS FX Status: Acute Qualifiers: Encounter type: initial encounter Fracture type: closed Fracture alignment: nondisplaced Comment: Continue Cervical Collar, non-operative mgmt, pain control (5) Femur fracture, right Code(s): S72.91XA - UNSP FRACTURE OF RIGHT FEMUR, INIT FOR CLOS FX Status: Acute Qualifiers: Fracture type: closed Fracture alignment: nondisplaced Comment: Non-operative mgmt, PT for ambulation with RW, fall risk, likely with home PT (6) Paroxysmal atrial fibrillation with RVR Code(s): I48.0 - PAROXYSMAL ATRIAL FIBRILLATION Status: Acute Comment: Continue Amiodarone, current SR (7) DM type 2 (diabetes mellitus, type 2) Status: Chronic 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
[2018-11-24] MEDS ORDERED: Sodium Chloride 0.9% 1,000 ML IV SCH (16:30)
[2018-11-24] MEDS: Atorvastatin Calcium 10 MG TAB PO SCH (20:24)
[2018-11-24] MEDS: Lidocaine Patch Removal 1 EACH TOP SCH (20:33)
[2018-11-25 05:52] LABS: Band 6 % (5-11); Eosinophils 3 % (0-10); Hemoglobin 8.1 g/dL (12.0-16.0); Lymphocytes 18 % (21-51); MDiff Complete? YES; Mean Corpuscular HGB CONC 29.7 g/dL (32.0-36.0); Mean Corpuscular Volume 80.6 fL (78.0-98.0); Mean Platelet Volume 7.6 fL (7.4-10.4); Monocytes 12 % (0-10); Neutrophil 61 % (42-75); Nucleated RBC 1 % (0); Platelet Count 262 thou/uL (130-400); Platelet Morphology Comment Appears Adequate; RBC Distribution Width 17.6 % (11.5-14.5); Red Blood Cell (RBC) Count 3.36 mill/uL (4.20-5.40); White Blood Cell (WBC) Count 5.8 thou/uL (4.8-10.8)
[2018-11-25 05:54] LABS: Anion Gap 10 mmol/L (10-20); BUN (Urea Nitrogen) 35 mg/dL (9.8-20.1); Calc. Creatinine Clearance 42 mL/min (70-130); Calcium 9.7 mg/dL (7.8-10.44); Carbon Dioxide 32 mmol/L (23-31); Chloride 104 mmol/L (98-107); Estimated GFR-MDRD 46; Glucose 113 mg/dL (83-110); Potassium 4.2 mmol/L (3.5-5.1); Sodium 142 mmol/L (136-145)
[2018-11-25] MEDS: Levothyroxine Sodium 112 MCG TAB PO SCH (06:57)
[2018-11-25] MEDS: Levothyroxine Sodium 25 MCG TAB PO SCH (06:57)
[2018-11-25] MEDS: Lubiprostone 24 MCG CAP PO SCH ×3 (09:02→16:41)
[2018-11-25] MEDS: Gabapentin 300 MG CAP PO SCH ×4 (09:03→22:05)
[2018-11-25] MEDS: Potassium Chloride 20 MEQ TAB PO SCH ×3 (09:03→16:41)
[2018-11-25] MEDS: Isosorbide Dinitrate 5 MG TAB PO SCH ×3 (09:04→22:06)
[2018-11-25] MEDS: Polyethylene Glycol 3350 17 GM Packet PO SCH ×2 (09:05→10:59)
[2018-11-25] MEDS: Amiodarone 200 MG TAB PO SCH ×2 (09:05→22:05)
--- NOTE | 2018-11-25 10:23 | CT ---
FHead CT without contrast 11/25/2018: COMPARISON: 11/20/2018 HISTORY: Mental status changes, slurred speech TECHNIQUE: Axial CT imaging at 5 mm intervals from vertex through skull base without contrast FINDINGS: Imaged paranasal sinuses and mastoid air cells are well aerated. Vascular calcification of cavernous carotid arteries present. No displaced calvarial fracture. There is new loss of simmons-white differentiation involving the medial and inferior aspect of the left temporal lobe as well as the inferior aspect of the left occipital lobe, evidence of interval infarct ion with associated cytotoxic edema. This involves a portion of the left temporal occipital region me asuring up to 6-7 centimeters in greatest AP dimension. No associated hemorrhage. Periventricular hypodensity suggests small vessel disease. IMPRESSION: Findings consistent with interval development of an acute infarction within the left temp oral occipital region. Addendum: Dr. Vazquez made aware at 10:20 AM 11/25/2018
--- NOTE | 2018-11-25 10:30 | PRG ---
DATE OF SERVICE: 11/25/2018 SUBJECTIVE: Ms. Ivory is confused and disoriented today. OBJECTIVE: VITAL SIGNS: Blood pressure 152/70, pulse 80. LUNGS: Clear. CARDIAC: Aortic stenosis, murmur as before. ABDOMEN: Soft and nontender. ASSESSMENT: 1. Confusion, disorientation of uncertain etiology. 2. Aortic stenosis, severe. 3. Iron deficiency, anemia with ferritin level below 100. PLAN: 1. We will go ahead and replete iron. 2. Evaluation of the confusion. Job ID: [id number]
[2018-11-25] MEDS: Aspirin 325 MG TAB ONE ×2 (10:31→10:56)
[2018-11-25] MEDS: Lidocaine 5% Patch TD SCH (10:56)
--- NOTE | 2018-11-25 11:12 | PDOC.PN ---
- Subjective Encounter Start Date: 11/25/18 Encounter Start Time: 11:00 Subjective: Called by nursing regarding pt confused, c/o L eye vision loss this am. -: CT brain showing L occipitotemporal infarct with edema. Appears established -: for 24+ hours. - Objective Resuscitation Status - Order Detail: 11/20/18 17:00 Resuscitation Status Routine Resuscitation Status: FULL: Full Resuscitation MAR Reviewed: Yes Vital Signs & Weight: Vital Signs (12 hours) Temp Pulse Resp BP Pulse Ox 11/25/18 08:55 97.8 F 84 16 154/77 H 98 11/25/18 04:00 97.5 F L 80 18 152/70 H 93 L 11/25/18 00:00 20 Weight Admit Weight 156 lb 11.2 oz Weight 160 lb 11.2 oz Most Recent Monitor Data Heart Rate from ECG 92 NIBP 146/100 NIBP BP-Mean 115 Respiration from ECG 17 SpO2 71 I&O: 11/24/18 11/25/18 11/26/18 06:59 06:59 06:59 Intake Total 1380 1415 Output Total 820 1050 Balance 560 365 Result Diagrams: 11/25/18 05:02 11/25/18 05:02 Additional Labs: Accuchecks 11/25/18 11/24/18 11/24/18 05:22 20:16 17:09 POC Glucose 147 H 140 H 136 H 11/24/18 11:28 POC Glucose 187 H Microbiology 11/20/18 14:24 Urine Straight Catheter Urine Culture - Final NO GROWTH AT 48 HOURS 11/20/18 14:37 Venous blood - Right Arm Blood Culture - Preliminary NO GROWTH AT 48 HOURS 11/20/18 14:37 Venous blood - Left Arm Blood Culture - Preliminary NO GROWTH AT 48 HOURS Laboratory Tests 11/20/18 11/20/18 11/21/18 14:12 14:12 04:28 WBC 18.0 H Hgb 12.2 Potassium 2.7 L* 3.3 L Creatinine 1.09 0.99 11/21/18 11/24/18 04:28 09:49 WBC 9.8 Hgb 9.6 L 8.1 L Potassium Creatinine Radiology Reviewed by me: Yes (CT brain - L occipital/temporal infarction with edema) EKG Reviewed by me: Yes (Tele - SR) Phys Exam - Physical Examination anxious, alert, responsive HEENT: PERRLA, sclera anicteric, oral pharynx no lesions Neck: no nodes, no JVD, supple, full ROM Respiratory: no wheezing, no rales, no rhonchi, clear to auscultation bilateral III/ ARIELA apex, S1, S2 Cardiovascular: RRR, no rub, gallop Gastrointestinal: soft, non-tender, no distention, positive bowel sounds Musculoskeletal: pulses present, edema present follows commands, L visual loss strength 5/5 in bilat U/LE's Neurological: normal sensation, moves all 4 limbs Skin: normal turgor, cap refill <2 seconds Dx/Plan (1) CVA (cerebral vascular accident) Code(s): I63.9 - CEREBRAL INFARCTION, UNSPECIFIED Status: Acute Qualifiers: Precerebral and cerebral artery: posterior cerebral artery Laterality of affected vessel: left Comment: Suspected subacute CVA 24+ hrs old with L eye vision loss, d/w Neurosurgery about utility of tPa but no recommendations for anticoagulation or acute intervention, continue ASA, Stroke protocol, consult Neurology, check Echo /Carotids (2) Visual disturbance due to recent cerebral infarction Code(s): I69.398 - OTHER SEQUELAE OF CEREBRAL INFARCTION; H53.9 - UNSPECIFIED VISUAL DISTURBANCE Status: Acute Comment: L eye involvement, see above (3) Acute metabolic encephalopathy Code(s): G93.41 - METABOLIC ENCEPHALOPATHY Status: Acute Comment: Likely iatrogenic due to medications, d/c all Morphine sulfate and limit psychotropes and sedating medications (4) Acute on chronic systolic and diastolic heart failure, NYHA class 3 Code(s): I50.43 - ACUTE ON CHRONIC COMBINED SYSTOLIC AND DIASTOLIC HRT FAIL Status: Acute Comment: Stable currently, continue med mgmt, held diuretics due to ANUM (5) ANUM (acute kidney injury) Code(s): N17.9 - ACUTE KIDNEY FAILURE, UNSPECIFIED Status: Acute Comment: Avoid nephrotoxic meds and limit contrast exposure, serial creatinine (6) Hypokalemia Code(s): E87.6 - HYPOKALEMIA Status: Acute Comment: KCL 40meq BID, serial K + monitoring (7) C7 cervical fracture Code(s): S12.600A - UNSP DISP FX OF SEVENTH CERVICAL VERTEBRA, INIT FOR CLOS FX Status: Acute Qualifiers: Encounter type: initial encounter Fracture type: closed Fracture alignment: nondisplaced Comment: Continue Cervical Collar, non-operative mgmt, pain control (8) Femur fracture, right Code(s): S72.91XA - UNSP FRACTURE OF RIGHT FEMUR, INIT FOR CLOS FX Status: Acute Qualifiers: Fracture type: closed Fracture alignment: nondisplaced Comment: Non-operative mgmt, PT for ambulation with RW, fall risk, likely with home PT (9) Paroxysmal atrial fibrillation with RVR Code(s): I48.0 - PAROXYSMAL ATRIAL FIBRILLATION Status: Acute Comment: Continue Amiodarone, current SR (10) DM type 2 (diabetes mellitus, type 2) Status: Chronic 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
[2018-11-25] MEDS ORDERED: Aspirin 300 MG Suppository ONE (11:13)
[2018-11-25] MEDS ORDERED: Aspirin 300 MG Suppository PR SCH (11:15)
[2018-11-25] MEDS: Iron, Sodium Ferric Gluconate 250 MG in Sodium Chloride 0.9% 100 ML IVPB SCH ×2 (12:16→22:06)
[2018-11-25] MEDS: Sodium Chloride 0.9% 1,000 ML IV SCH (12:29)
[2018-11-25 12:37] VITALS: BMI 27.6
--- NOTE | 2018-11-25 14:24 | ULT ---
CAROTID ULTRASOUND: DATE: 11/25/18 HISTORY: CVA. COMPARISON: 10/14/18. TECHNIQUE: Multiplanar Frazier scale and color Doppler images were obtained in a carotid ultrasound. Spectral pippa sis of the Doppler waveforms were performed. FINDINGS: Minimal plaque is seen in the proximal right internal carotid artery. The Doppler waveforms are osman l bilaterally. Peak systolic velocity in the right ICA is 100 cm/second. Peak systolic velocity in the right CCA is 90 cm/second. The right ICA/CCA ratio is 1.1. Peak systolic velocity in the left ICA is 78 cm/second. Peak systolic velocity in the left CCA is 78 cm/second. The left ICA/CCA ratio is 1.0. Both vertebral arteries demonstrate antegrade flow without focal stenosis. IMPRESSION: No evidence of hemodynamically significant stenosis. POS: TPC
[2018-11-25] MEDS: Nystatin Cream 30 GM TUBE TOP SCH ×3 (15:58→22:07)
[2018-11-25] MEDS: traMADol HCl 50 MG TAB PO PRN (16:42)
[2018-11-25] MEDS: Atorvastatin Calcium 10 MG TAB PO SCH (22:05)
[2018-11-25] MEDS: Atorvastatin Calcium 40 MG TAB PO SCH (22:05)
[2018-11-25] MEDS: Lidocaine Patch Removal 1 EACH TOP SCH (22:06)
[2018-11-26] MEDS: traMADol HCl 50 MG TAB PO PRN
[2018-11-26 03:01] LABS: CO2 Tension 52.8 mmHg (35.0-45.0); O2 Tension (PaO2) 65.9 mmHg (> 60.0)
[2018-11-26 03:02] LABS: Actual Bicarbonate (HCO3a) 32.1 mEq/L (22-28); Base Excess (BEa) 6.5 mEq/L (-2.0 to +3.0); Hemoglobin (Hb) 8.1 g/dL (12.0-16.0)
[2018-11-26 03:03] LABS: #Basophils 0.1 thou/uL (0.0-0.2); #Lymphocytes 1.1 thou/uL (1.20-3.40); #Neutrophils 5.9 thou/uL (1.40-6.50); %Basophils 0.7 % (0.0-1.0); %Eosinophils 0.4 % (0.0-10.0); %Lymphocytes 13.5 % (21.0-51.0); %Monocytes 12.4 % (0.0-10.0); %Neutrophils 72.9 % (42.0-75.0); Hemoglobin 8.1 g/dL (12.0-16.0); Mean Corpuscular Hemoglobin 23.6 pg (27.0-31.0); Mean Corpuscular Volume 81.4 fL (78.0-98.0); Mean Platelet Volume 7.4 fL (7.4-10.4); Platelet Count 285 thou/uL (130-400); Red Blood Cell (RBC) Count 3.43 mill/uL (4.20-5.40); White Blood Cell (WBC) Count 8.1 thou/uL (4.8-10.8)
[2018-11-26 03:03] LABS: Calcium, Ionized 1.27 mmol/L (1.12-1.30); Carboxyhemoglobin (COHb) 1.9 gm% (0.0-3.0); Potassium - ABG Lab 4.12 mmol/L (3.70-5.30)
[2018-11-26 03:04] LABS: Puncture Site RRA
[2018-11-26 03:21] LABS: Bilirubin Small (Negative); Blood, Urine Moderate (Negative); Clarity TURBID (Clear); Glucose, Urine (Dipstick) Negative (Negative); Leukocyte Moderate (Negative); Nitrite Positive (Negative); Protein, Urine (Dipstick) Negative (Neg-Trace); Specific Gravity, Urine 1.018 (1.002-1.036); Urobilinogen 0.2 mg/dL (0.2-1.0); pH, Urine 5.5 (5.0-9.0)
[2018-11-26 03:23] LABS: Bacteria/HPF 1+ HPF (None Seen); Hyaline Casts/LPF 0-3 HYALINE CAST LPF (0-3 Hyaline); Pathc Cast-AUWi Flag 0.63 (0-2.49); Squamous Epithelial 0-3 HPF (0-3)
[2018-11-26 03:27] LABS: ALT (SGPT) 17 U/L (8-55); AST (SGOT) 14 U/L (5-34); Albumin 2.8 g/dL (3.4-4.8); Alkaline Phosphatase 88 U/L (40-150); Anion Gap 13 mmol/L (10-20); BUN (Urea Nitrogen) 22 mg/dL (9.8-20.1); Bilirubin, Total 0.5 mg/dL (0.2-1.2); CK (CPK) 43 U/L (29-168); CRP (Inflammatory) 6.22 mg/dL (= or < 0.5); Calc. Creatinine Clearance 56 mL/min (70-130); Calcium 9.6 mg/dL (7.8-10.44); Carbon Dioxide 30 mmol/L (23-31); Chloride 103 mmol/L (98-107); Estimated GFR-MDRD 62; Globulin 2.6 g/dL (2.4-3.5); Glucose 134 mg/dL (83-110); Lipase 8 U/L (8-78); Potassium 4.3 mmol/L (3.5-5.1); Protein, Total 5.4 g/dL (6.0-8.3); Sodium 142 mmol/L (136-145)
[2018-11-26 03:28] LABS: Troponin I 0.271 ng/mL (< 0.028)
[2018-11-26 03:36] LABS: Yeast-All Forms 2+ HPF (None Seen)
[2018-11-26 03:44] LABS: Anion Gap 11 mmol/L (10-20); BUN (Urea Nitrogen) 23 mg/dL (9.8-20.1); Calc. Creatinine Clearance 56 mL/min (70-130); Calcium 9.8 mg/dL (7.8-10.44); Carbon Dioxide 32 mmol/L (23-31); Cardiac Risk 4.3 (Less than 4.5); Chloride 103 mmol/L (98-107); Cholesterol 73 mg/dl (< 200 Desired); Estimated GFR-MDRD 62; Glucose 132 mg/dL (83-110); HDL Cholesterol 17 mg/dL (>60 Neg Risk); LDL Cholesterol, Calculated 36 mg/dL; Potassium 4.4 mmol/L (3.5-5.1); Sodium 142 mmol/L (136-145); Triglycerides 98 mg/dL (Less than 150)
[2018-11-26] MEDS: Piperacillin/Tazobactam 4.5 GM in Sodium Chloride 0.9% 100 ML IVPB SCH ×3 (06:40→16:43)
[2018-11-26] MEDS: Levothyroxine Sodium 25 MCG TAB PO SCH (06:40)
[2018-11-26] MEDS: Levothyroxine Sodium 112 MCG TAB PO SCH (06:40)
--- NOTE | 2018-11-26 07:49 | RAD ---
FRONTAL VIEW CHEST: INDICATION: Tachypneic, fever, 83-year-old female. COMPARISON: Reference is made to 11/20/2018. FINDINGS: There is prominence of the cardiac silhouette as well as the pulmonary vasculature. A patchy right p erihilar opacity is present, more pronounced when comparing to prior exam. Slight blunting/effacemen t of each lateral costophrenic sulcus is noted. The chest is otherwise similar. IMPRESSION: 1. Findings favor decompensated congestive heart failure. Given slight increased degree of confluen ce of opacity at the right perihilar region, a superimposed right perihilar pneumonia is not excluded . Correlate clinically. 2. Mild effacement of each lateral costophrenic sulcus could be on the basis of small volume pleural fluid. 3. Recommend continued imaging followup. POS: ANNE-MARIE
[2018-11-26] MEDS: Nystatin Cream 30 GM TUBE TOP SCH ×4 (09:30→20:44)
[2018-11-26] MEDS: Lidocaine 5% Patch TD SCH (09:44)
--- NOTE | 2018-11-26 09:45 | PDOC.PN ---
- Subjective Encounter Start Date: 11/26/18 Encounter Start Time: 09:47 Subjective: Admitted after she was found down. thought to be due to acute encephalopath -: Found to have PAF with RVR, SIRS, hypoglycemia, C7 fracture and hypotherm. -: Improved with treatment but later developed AMS due to acute CVA. Patient vitals triggered sepsis alert necessitating CXR which showed worsening infiltrates concerning for aspiration since diet was restarted yesterday. - Objective Resuscitation Status - Order Detail: 11/20/18 17:00 Resuscitation Status Routine Resuscitation Status: FULL: Full Resuscitation Vital Signs & Weight: Vital Signs (12 hours) Temp Pulse Resp BP Pulse Ox 11/26/18 07:25 96.1 F L 72 18 153/83 H 100 11/26/18 04:02 100 11/26/18 04:00 98 F 68 20 112/56 L 100 11/26/18 02:57 98 F 76 24 H 108/52 L 99 11/26/18 00:00 100.9 F H 94 22 H 124/65 94 L Weight Admit Weight 156 lb 11.2 oz Weight 162 lb 1 oz Most Recent Monitor Data Heart Rate from ECG 92 NIBP 146/100 NIBP BP-Mean 115 Respiration from ECG 17 SpO2 71 I&O: 11/25/18 11/26/18 11/27/18 06:59 06:59 06:59 Intake Total 1415 1020 Output Total 1050 700 Balance 365 320 Result Diagrams: 11/26/18 02:27 11/26/18 02:27 Additional Labs: Accuchecks 11/26/18 11/25/18 11/25/18 06:03 22:25 16:58 POC Glucose 140 H 165 H 159 H 11/25/18 11:14 POC Glucose 222 H Phys Exam - Physical Examination confused elderly female, afebrile and anicteric. HEENT: PERRLA, moist MMs dry oral mucosa Neck: no JVD fair air entry but decreased at the bases Cardiovascular: RRR systolic murmur noted Gastrointestinal: soft, non-tender, no distention, positive bowel sounds mild bilateral leg edema. Left toes amputation noted Neurological: moves all 4 limbs awake but confused Deviation from normal: scattered patchy skin breakdown and bilaterallower/mid erythema noted Dx/Plan (1) CVA (cerebral vascular accident) Code(s): I63.9 - CEREBRAL INFARCTION, UNSPECIFIED Status: Acute Qualifiers: Precerebral and cerebral artery: posterior cerebral artery Laterality of affected vessel: left Comment: Suspected subacute CVA 24+ hrs old with L eye vision loss, d/w Neurosurgery about utility of tPa but no recommendations for anticoagulation or acute intervention, continue ASA, Stroke protocol, consult Neurology, check Echo /Carotids (2) Iron deficiency anemia Code(s): D50.9 - IRON DEFICIENCY ANEMIA, UNSPECIFIED Status: Acute (3) Acute metabolic encephalopathy Code(s): G93.41 - METABOLIC ENCEPHALOPATHY Status: Acute Comment: Likely iatrogenic due to medications, d/c all Morphine sulfate and limit psychotropes and sedating medications (4) C7 cervical fracture Code(s): S12.600A - UNSP DISP FX OF SEVENTH CERVICAL VERTEBRA, INIT FOR CLOS FX Status: Acute Qualifiers: Encounter type: initial encounter Fracture type: closed Fracture alignment: nondisplaced Comment: Cervical Collar, non-operative mgmt and pain control recommended but patient will not use cervical collar (5) Femur fracture, right Code(s): S72.91XA - UNSP FRACTURE OF RIGHT FEMUR, INIT FOR CLOS FX Status: Acute Qualifiers: Fracture type: closed Fracture alignment: nondisplaced Comment: Non-operative mgmt, PT for ambulation with RW, fall risk, likely with home PT (6) Paroxysmal atrial fibrillation with RVR Code(s): I48.0 - PAROXYSMAL ATRIAL FIBRILLATION Status: Acute Comment: Continue Amiodarone, current SR (7) ANUM (acute kidney injury) Code(s): N17.9 - ACUTE KIDNEY FAILURE, UNSPECIFIED Status: Acute Comment: Avoid nephrotoxic meds and limit contrast exposure, serial creatinine (8) Chronic diastolic congestive heart failure Code(s): I50.32 - CHRONIC DIASTOLIC (CONGESTIVE) HEART FAILURE Status: Chronic (9) Coronary artery disease Code(s): I25.10 - ATHSCL HEART DISEASE OF [place] CORONARY ARTERY W/O ANG PCTRS Status: Chronic Qualifiers: Coronary Disease-Associated Artery/Lesion type: nondalton artery [place] vs. 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 use: with long term care pharmacist use Comment: Labile, ISS, serial accuchecks (11) GERD (gastroesophageal reflux disease) Code(s): K21.9 - GASTRO-ESOPHAGEAL REFLUX DISEASE WITHOUT ESOPHAGITIS Status: Chronic Qualifiers: Esophagitis presence: esophagitis presence not specified Qualified Code(s) : K21.9 - Gastro-esophageal reflux disease without esophagitis Comment: on PPI (12) Hypertension Code(s): I10 - ESSENTIAL (PRIMARY) HYPERTENSION Status: Chronic Qualifiers: Hypertension type: essential hypertension Qualified Code(s): I10 - Essential (primary) hypertension Comment: controlled (13) Severe aortic stenosis Code(s): I35.0 - NONRHEUMATIC AORTIC (VALVE) STENOSIS Status: Chronic Comment: TAVR contemplaated. (14) 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 Code(s): E11.649 - TYPE 2 DIABETES MELLITUS WITH HYPOGLYCEMIA WITHOUT COMA Status: Resolved (15) Dysphagia causing pulmonary aspiration with swallowing Code(s): R13.19 - OTHER DYSPHAGIA Status: Acute (16) Aspiration pneumonia Code(s): J69.0 - PNEUMONITIS DUE TO INHALATION OF FOOD AND VOMIT Status: Acute - Plan Start DVT prophylaxis with lovenox. -: Keep NPO untill re evaluated by Speech -: Continue zosyn for now. -: Discussed anticoagulation with cardiology Re PAF. -: analgesic as needed. PT/OT to continue. * .
[2018-11-26] MEDS: Gabapentin 300 MG CAP PO SCH ×3 (10:57→20:45)
[2018-11-26] MEDS: Lubiprostone 24 MCG CAP PO SCH ×2 (10:58→16:19)
[2018-11-26] MEDS: Isosorbide Dinitrate 5 MG TAB PO SCH ×2 (10:58→20:44)
[2018-11-26] MEDS: Aspirin 325 mg Enteric Coated Tablet PO SCH (10:58)
[2018-11-26] MEDS: Amiodarone 200 MG TAB PO SCH ×2 (10:59→20:44)
[2018-11-26] MEDS: Polyethylene Glycol 3350 17 GM Packet PO SCH (10:59)
[2018-11-26] MEDS: Potassium Chloride 20 MEQ TAB PO SCH ×3 (10:59→16:21)
[2018-11-26] MEDS: Sodium Chloride 0.9% 1,000 ML IV SCH (11:30)
[2018-11-26] MEDS: Torsemide 20 MG TAB PO SCH ×2 (11:31→13:05)
[2018-11-26] MEDS ORDERED: Enoxaparin Sodium 40 MG/0.4 ML SYRINGE SC SCH (12:00)
--- NOTE | 2018-11-26 14:24 | PDOC.CTH ---
Cardiology Progress Note - Subjective No overnight events. Getting ECHO right now. Reviewed CXR. Bilateral opacities consistent with CHF and possible patchy PNA. Maintaining NSR on po Amio. - Objective Vital Signs Temp Pulse Resp BP Pulse Ox 11/26/18 12:00 98 F 79 20 138/64 96 11/26/18 09:30 100 11/26/18 07:25 96.1 F L 72 18 153/83 H 100 11/26/18 04:02 100 11/26/18 04:00 98 F 68 20 112/56 L 100 11/26/18 02:57 98 F 76 24 H 108/52 L 99 Admit Weight 156 lb 11.2 oz Weight 162 lb 1 oz 11/25/18 11/26/18 11/27/18 06:59 06:59 06:59 Intake Total 1415 1020 Output Total 1050 700 Balance 365 320 - Physical Examination General/Neuro: alert & oriented x3 Neck: carotid US brisk Lungs: other: (few crackles) Heart: RRR Abdomen: NT/ND - Telemetry Telemetry Rhythm: SR - Labs Result Diagrams: 11/26/18 02:27 11/26/18 02:27 Troponin/CKMB Troponin I 0.271 ng/mL (< 0.028) H 11/26/18 02:27 - Assessment/Plan 1. Acute on chronic diastolic CHF 2. s/p acute CVA 3. Paroxysmal AF - maintaining NSR on Amio 4. History of recurrent infections 5. CKD 6. Chronic Anemia Add low dose IV lasix. Patient currently on demadex. Rhythm stable on po Amio. Will have LINQ interrogated to evaluate AF burden. In the past it's been documented she was a poor candidate for OAC per Dr. Lynch. Pt seen and examined. Pt with confusion. At this point, recommend ACT when felt to be ok with neurology. Pt at risk of conversion to hemorrhagic CVA. Pt in SR. ILR interrogated and shows intermittent Afib
[2018-11-26] MEDS ORDERED: Furosemide 20 MG/2 ML VIAL SLOW IVP SCH (14:30)
--- NOTE | 2018-11-26 14:43 | CON ---
DATE OF CONSULTATION: 11/26/2018 CONSULTING PHYSICIAN: Hospitalist Service. IMPRESSION: 1. Probable cardioembolic stroke involving left posterior cerebral artery. 2. Atrial fibrillation. 3. Possible sepsis. 4. Aortic stenosis. 5. Diabetes. PLAN: 1. I would suggest considering anticoagulation given her atrial fibrillation. 2. Continue Lipitor. HISTORY OF PRESENT ILLNESS: Ms. Ivory is an 83-year-old female, who came into the hospital with what was described as alteration of mental status. She was noted to have elevated white count and thought to be septic. She was admitted for further evaluation. Subsequent imaging revealed evidence of a subacute infarct involving the left occipital and temporal lobe. Carotid ultrasound does not show any significant stenosis. She was noted to be in atrial fibrillation with a rapid ventricular response. Cardiology was consulted and recommended amiodarone drip. She is on full-dose Lovenox. PAST MEDICAL HISTORY: As listed above. ALLERGIES: CODEINE. SOCIAL HISTORY: No tobacco use reported. FAMILY HISTORY: Not obtainable. REVIEW OF SYSTEMS: Not obtainable due to her level of cooperation. PHYSICAL EXAMINATION: GENERAL: She is a well-nourished elderly lady, lying in bed, in no acute distress. VITAL SIGNS: Blood pressure 153/83, pulse 72, respirations 18, and temperature 96.1. HEENT: Pupils are equal and reactive. Conjunctiva clear. Eyes are conjugate. Oropharynx is a bit dry. NECK: Supple. No lymphadenopathy. EXTREMITIES: Moderate edema in both lower extremities. NEUROLOGIC: Could awaken her, but she was not overtly conversant. I tried to assess her visual hdz, though exam was limited due to her cooperation. Her face appeared to be symmetric. 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 Sensation was grossly symmetric. No abnormal movements were seen. Gait was not testable. LABORATORY STUDIES: White blood cell count 8.1, hemoglobin 8.1, platelet count 285. Coags are in normal range. Chemistry panel shows a glucose of 134 with cholesterol of 73 and a ratio of 4.3. Urine showed moderate leukocytosis with 7 to 10 white cells. SUMMARY: This elderly lady suffered subacute stroke in the left posterior cerebral artery distribution. Given her atrial fibrillation, she would likely benefit from being on anticoagulation. Her overall clinical state is relatively poor from appearance today. There is no family available to corroborate what her level of function is otherwise. Her workup otherwise appears complete. Job ID: [id number]
[2018-11-26] MEDS: Acetaminophen 325 MG TAB PO PRN ×2 (16:42)
[2018-11-26] MEDS: Atorvastatin Calcium 40 MG TAB PO SCH (20:45)
[2018-11-26] MEDS: Atorvastatin Calcium 10 MG TAB PO SCH (23:00)
[2018-11-27] MEDS: traMADol HCl 50 MG TAB PO PRN (00:23)
[2018-11-27] MEDS: Melatonin 3 MG TAB PO PRN (00:23)
[2018-11-27] MEDS: Piperacillin/Tazobactam 4.5 GM in Sodium Chloride 0.9% 100 ML IVPB SCH ×3 (00:27→11:18)
[2018-11-27] MEDS: Lidocaine Patch Removal 1 EACH TOP SCH (00:27)
[2018-11-27] MEDS: Levothyroxine Sodium 112 MCG TAB PO SCH (05:25)
[2018-11-27] MEDS: Levothyroxine Sodium 25 MCG TAB PO SCH (05:25)
[2018-11-27] MEDS: Lubiprostone 24 MCG CAP PO SCH ×2 (07:52→17:07)
[2018-11-27] MEDS: Polyethylene Glycol 3350 17 GM Packet PO SCH (07:56)
[2018-11-27] MEDS ORDERED: Enoxaparin Sodium 40 MG/0.4 ML SYRINGE SC SCH (09:00)
[2018-11-27] MEDS: Lidocaine 5% Patch TD SCH (11:19)
[2018-11-27] MEDS: Isosorbide Dinitrate 5 MG TAB PO SCH ×2 (11:19→20:37)
[2018-11-27] MEDS: Gabapentin 300 MG CAP PO SCH ×3 (11:20→20:55)
[2018-11-27] MEDS: Potassium Chloride 20 MEQ TAB PO SCH ×2 (11:20→15:47)
[2018-11-27] MEDS: Amiodarone 200 MG TAB PO SCH ×2 (11:20→20:34)
[2018-11-27] MEDS: Aspirin 325 mg Enteric Coated Tablet PO SCH (11:21)
[2018-11-27] MEDS: Nystatin Cream 30 GM TUBE TOP SCH ×4 (11:21→20:34)
[2018-11-27] MEDS: Torsemide 20 MG TAB PO SCH ×2 (11:26→15:47)
[2018-11-27] MEDS: Sodium Chloride 0.9% 1,000 ML IV SCH (11:27)
--- NOTE | 2018-11-27 12:40 | PDOC.PN ---
- Subjective Encounter Start Date: 11/27/18 Encounter Start Time: 12:38 Subjective: Still having intermittent confusion. -: Occasionally yelling out. No fever -: Oral intake is poor - Objective Resuscitation Status - Order Detail: 11/20/18 17:00 Resuscitation Status Routine Resuscitation Status: FULL: Full Resuscitation Vital Signs & Weight: Vital Signs (12 hours) Temp Pulse Resp BP Pulse Ox 11/27/18 11:36 98 F 83 20 165/83 H 95 11/27/18 07:48 98.8 F 79 20 127/69 93 L 11/27/18 03:12 98.1 F 83 20 133/64 92 L Weight Admit Weight 156 lb 11.2 oz Weight 164 lb 11.2 oz Most Recent Monitor Data Heart Rate from ECG 92 NIBP 146/100 NIBP BP-Mean 115 Respiration from ECG 17 SpO2 71 I&O: 11/26/18 11/27/18 11/28/18 06:59 06:59 06:59 Intake Total 1020 2058 Output Total 700 1701 Balance 320 357 Result Diagrams: 11/26/18 02:27 11/26/18 02:27 Additional Labs: Accuchecks 11/27/18 11/27/18 11/26/18 10:46 05:50 20:49 POC Glucose 104 111 H 134 H 11/26/18 16:50 POC Glucose 136 H Phys Exam - Physical Examination restless elderly female HEENT: PERRLA Neck: no JVD Respiratory: no wheezing fair air entry bilaterally with few bibasal crackles Cardiovascular: RRR 3/6 systolic murmur noted Gastrointestinal: soft, non-tender, no distention, positive bowel sounds Musculoskeletal: pulses present trace edema Neurological: moves all 4 limbs cranial nerves 2-12 are intact. Moves all limbs. memory lapses noted Dx/Plan (1) CVA (cerebral vascular accident) Code(s): I63.9 - CEREBRAL INFARCTION, UNSPECIFIED Status: Acute Qualifiers: Precerebral and cerebral artery: posterior cerebral artery Laterality of affected vessel: left Comment: Suspected subacute CVA 24+ hrs old with L eye vision loss, d/w Neurosurgery about utility of tPa but no recommendations for anticoagulation or acute intervention, continue ASA, Stroke protocol, consult Neurology, check Echo /Carotids (2) Iron deficiency anemia Code(s): D50.9 - IRON DEFICIENCY ANEMIA, UNSPECIFIED Status: Acute Comment: S/p IV iron therapy (3) Acute metabolic encephalopathy Code(s): G93.41 - METABOLIC ENCEPHALOPATHY Status: Acute Comment: Likely iatrogenic due to medications, d/c all Morphine sulfate and limit psychotropes and sedating medications (4) C7 cervical fracture Code(s): S12.600A - UNSP DISP FX OF SEVENTH CERVICAL VERTEBRA, INIT FOR CLOS FX Status: Acute Qualifiers: Encounter type: initial encounter Fracture type: closed Fracture alignment: nondisplaced Comment: Cervical Collar, non-operative mgmt and pain control recommended but patient will not use cervical collar (5) Femur fracture, right Code(s): S72.91XA - UNSP FRACTURE OF RIGHT FEMUR, INIT FOR CLOS FX Status: Acute Qualifiers: Fracture type: closed Fracture alignment: nondisplaced Comment: Non-operative mgmt, PT for ambulation with RW, fall risk, likely with home PT (6) Paroxysmal atrial fibrillation with RVR Code(s): I48.0 - PAROXYSMAL ATRIAL FIBRILLATION Status: Acute Comment: Continue Amiodarone, current SR (7) ANUM (acute kidney injury) Code(s): N17.9 - ACUTE KIDNEY FAILURE, UNSPECIFIED Status: Acute Comment: Avoid nephrotoxic meds and limit contrast exposure, serial creatinine (8) Chronic diastolic congestive heart failure Code(s): I50.32 - CHRONIC DIASTOLIC (CONGESTIVE) HEART FAILURE Status: Chronic (9) Coronary artery disease Code(s): I25.10 - ATHSCL HEART DISEASE OF [place] CORONARY ARTERY W/O ANG PCTRS Status: Chronic Qualifiers: Coronary Disease-Associated Artery/Lesion type: [place] artery [place] vs. transplanted heart: [place] heart Associated angina: without angina Qualified Code(s): I25.10 - Atherosclerotic heart disease of [place] coronary artery without angina pectoris Comment: on ASA,statin,BB (10) DM type 2 (diabetes mellitus, type 2) Status: Chronic Qualifiers: Diabetes mellitus custodial insulin use: with custodial use Comment: Labile, ISS, serial accuchecks (11) GERD (gastroesophageal reflux disease) Code(s): K21.9 - GASTRO-ESOPHAGEAL REFLUX DISEASE WITHOUT ESOPHAGITIS Status: Chronic Qualifiers: Esophagitis presence: esophagitis presence not specified Qualified Code(s) : K21.9 - Gastro-esophageal reflux disease without esophagitis Comment: on PPI (12) Hypertension Code(s): I10 - ESSENTIAL (PRIMARY) HYPERTENSION Status: Chronic Qualifiers: Hypertension type: essential hypertension Qualified Code(s): I10 - Essential (primary) hypertension Comment: controlled (13) Severe aortic stenosis Code(s): I35.0 - NONRHEUMATIC AORTIC (VALVE) STENOSIS Status: Chronic Comment: TAVR contemplaated. (14) 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 Code(s): E11.649 - TYPE 2 DIABETES MELLITUS WITH HYPOGLYCEMIA WITHOUT COMA Status: Resolved (15) Dysphagia causing pulmonary aspiration with swallowing Code(s): R13.19 - OTHER DYSPHAGIA Status: Acute (16) Aspiration pneumonia Code(s): J69.0 - PNEUMONITIS DUE TO INHALATION OF FOOD AND VOMIT Status: Acute - Plan DC antibiotics and IVF. Monitor patient on oral diuretic. -: Continue PT and other supportive care -: Patient decline thickened liquid hence was placed back on thin liquid -: Will start oral anticoagulation. Discussed with Neurology. * .
[2018-11-27] MEDS: Cyclobenzaprine 10 MG TAB PO PRN (15:49)
[2018-11-27] MEDS: Atorvastatin Calcium 40 MG TAB PO SCH (20:34)
[2018-11-27] MEDS: Apixaban 2.5 MG TAB PO SCH (20:34)
[2018-11-28] MEDS: traMADol HCl 50 MG TAB PO PRN ×3 (01:41→21:32)
[2018-11-28] MEDS: Lidocaine Patch Removal 1 EACH TOP SCH ×2 (01:41→21:32)
[2018-11-28] MEDS: Levothyroxine Sodium 25 MCG TAB PO SCH (05:20)
[2018-11-28] MEDS: Acetaminophen 325 MG TAB PO PRN (05:20)
[2018-11-28] MEDS: Levothyroxine Sodium 112 MCG TAB PO SCH (05:20)
--- NOTE | 2018-11-28 08:35 | PDOC.PN ---
- Subjective Encounter Start Date: 11/28/18 Encounter Start Time: 08:32 Subjective: No new problem -: More appropriate today. - Objective Resuscitation Status - Order Detail: 11/20/18 17:00 Resuscitation Status Routine Resuscitation Status: FULL: Full Resuscitation Vital Signs & Weight: Vital Signs (12 hours) Temp Pulse Resp BP Pulse Ox 11/28/18 07:43 98.3 F 76 18 133/77 100 11/28/18 03:32 98.7 F 86 22 H 158/77 H 97 11/27/18 23:35 99.9 F H 86 16 186/84 H 98 Weight Admit Weight 156 lb 11.2 oz Weight 164 lb 11.2 oz Most Recent Monitor Data Heart Rate from ECG 92 NIBP 146/100 NIBP BP-Mean 115 Respiration from ECG 17 SpO2 71 I&O: 11/27/18 11/28/18 11/29/18 06:59 06:59 06:59 Intake Total 2058 1402 Output Total 1701 1550 Balance 357 -148 Result Diagrams: 11/26/18 02:27 11/26/18 02:27 Additional Labs: Accuchecks 11/28/18 11/27/18 11/27/18 05:26 20:26 16:54 POC Glucose 152 H 194 H 149 H 11/27/18 10:46 POC Glucose 104 Phys Exam - Physical Examination elderly female with marked kyphosis HEENT: PERRLA, moist MMs marked kyphosis noted fair air entry with some transmitted sound and few bibasal crackles Cardiovascular: RRR 3-4/6 systolic murmur noted Gastrointestinal: soft, non-tender, positive bowel sounds obese mild to moderate bilateral leg edema. dressing on right knee and leg noted Mild erythema of both legs noted awake and conversational, moving all limbs Dx/Plan (1) CVA (cerebral vascular accident) Code(s): I63.9 - CEREBRAL INFARCTION, UNSPECIFIED Status: Acute Qualifiers: Precerebral and cerebral artery: posterior cerebral artery Laterality of affected vessel: left Comment: Suspected subacute CVA 24+ hrs old with L eye vision loss, d/w Neurosurgery about utility of tPa but no recommendations for anticoagulation or acute intervention, continue ASA, Stroke protocol, consult Neurology, check Echo /Carotids (2) Iron deficiency anemia Code(s): D50.9 - IRON DEFICIENCY ANEMIA, UNSPECIFIED Status: Acute Comment: S/p IV iron therapy (3) Acute metabolic encephalopathy Code(s): G93.41 - METABOLIC ENCEPHALOPATHY Status: Acute Comment: Likely iatrogenic due to medications, d/c all Morphine sulfate and limit psychotropes and sedating medications (4) C7 cervical fracture Code(s): S12.600A - UNSP DISP FX OF SEVENTH CERVICAL VERTEBRA, INIT FOR CLOS FX Status: Acute Qualifiers: Encounter type: initial encounter Fracture type: closed Fracture alignment: nondisplaced Comment: Cervical Collar, non-operative mgmt and pain control recommended but patient will not use cervical collar (5) Femur fracture, right Code(s): S72.91XA - UNSP FRACTURE OF RIGHT FEMUR, INIT FOR CLOS FX Status: Acute Qualifiers: Fracture type: closed Fracture alignment: nondisplaced Comment: Non-operative mgmt, PT for ambulation with RW, fall risk, likely with home PT (6) Paroxysmal atrial fibrillation with RVR Code(s): I48.0 - PAROXYSMAL ATRIAL FIBRILLATION Status: Acute Comment: Continue Amiodarone, current SR (7) ANUM (acute kidney injury) Code(s): N17.9 - ACUTE KIDNEY FAILURE, UNSPECIFIED Status: Acute Comment: Avoid nephrotoxic meds and limit contrast exposure, serial creatinine (8) Chronic diastolic congestive heart failure Code(s): I50.32 - CHRONIC DIASTOLIC (CONGESTIVE) HEART FAILURE Status: Chronic (9) Coronary artery disease Code(s): I25.10 - ATHSCL HEART DISEASE OF [place] CORONARY ARTERY W/O ANG PCTRS Status: Chronic Qualifiers: Coronary Disease-Associated Artery/Lesion type: [place] artery [place] vs. transplanted heart: [place] heart Associated angina: without angina Qualified Code(s): I25.10 - Atherosclerotic heart disease of [place] coronary artery without angina pectoris Comment: on ASA,statin,BB (10) DM type 2 (diabetes mellitus, type 2) Status: Chronic Qualifiers: Diabetes mellitus half-way insulin use: with half-way use Comment: Labile, ISS, serial accuchecks (11) GERD (gastroesophageal reflux disease) Code(s): K21.9 - GASTRO-ESOPHAGEAL REFLUX DISEASE WITHOUT ESOPHAGITIS Status: Chronic Qualifiers: Esophagitis presence: esophagitis presence not specified Qualified Code(s) : K21.9 - Gastro-esophageal reflux disease without esophagitis Comment: on PPI (12) Hypertension Code(s): I10 - ESSENTIAL (PRIMARY) HYPERTENSION Status: Chronic Qualifiers: Hypertension type: essential hypertension Qualified Code(s): I10 - Essential (primary) hypertension Comment: controlled (13) Severe aortic stenosis Code(s): I35.0 - NONRHEUMATIC AORTIC (VALVE) STENOSIS Status: Chronic Comment: TAVR contemplaated. (14) 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 Code(s): E11.649 - TYPE 2 DIABETES MELLITUS WITH HYPOGLYCEMIA WITHOUT COMA Status: Resolved (15) Dysphagia causing pulmonary aspiration with swallowing Code(s): R13.19 - OTHER DYSPHAGIA Status: Acute (16) Aspiration pneumonia Code(s): J69.0 - PNEUMONITIS DUE TO INHALATION OF FOOD AND VOMIT Status: Acute (17) Physical deconditioning Code(s): R53.81 - OTHER MALAISE Status: Acute - Plan Continue current treatments -: increase activity -: Off antibiotics. -: Get repeat CBC and BMP -: PT/OT/NURSE SPECIAL to continue. Anticipate discharge to SNF * .
[2018-11-28] MEDS: Amiodarone 200 MG TAB PO SCH ×2 (10:01→20:44)
[2018-11-28] MEDS: Apixaban 2.5 MG TAB PO SCH ×2 (10:04→20:44)
[2018-11-28] MEDS: Torsemide 20 MG TAB PO SCH ×2 (10:04→14:35)
--- NOTE | 2018-11-28 10:21 | PRG ---
DATE OF SERVICE: 11/28/2018 SUBJECTIVE: Ms. Ivory has improved substantially clinically from the stroke she had last week. She is now answering questions appropriately with an appropriate conversation. OBJECTIVE: VITAL SIGNS: Blood pressure 133/77 and pulse 70 and it is regular. CARDIOVASCULAR: There is an aortic stenosis murmur. ABDOMEN: Soft and nontender. EXTREMITIES: There is moderate edema. ASSESSMENT: 1. Status post stroke, suspect cardioembolic due to atrial fibrillation. 2. Anemia, stable. Hemoglobin is 8.1. She does have the iron-deficiency anemia. 3. Severe aortic stenosis. PLAN: 1. Consideration for anticoagulation. Currently, on apixaban, reduced dose. Dose may need to be increased to be completely therapeutic. 2. Reduce aspirin to 81 mg a day. 3. Hopefully, she can recover to the point where she could still have the transcutaneous aortic valve replacement. Job ID: [id number]
[2018-11-28] MEDS: HumaLOG 300 UNITS/3 ML VIAL SC PRN (11:36)
[2018-11-28] MEDS: Gabapentin 300 MG CAP PO SCH ×3 (11:39→20:44)
[2018-11-28] MEDS: Aspirin 325 mg Enteric Coated Tablet PO SCH (11:41)
[2018-11-28] MEDS: Lubiprostone 24 MCG CAP PO SCH ×2 (11:46→17:19)
[2018-11-28] MEDS: Potassium Chloride 20 MEQ TAB PO SCH ×2 (11:47→17:20)
[2018-11-28] MEDS: Isosorbide Dinitrate 5 MG TAB PO SCH ×2 (11:47→20:44)
[2018-11-28] MEDS: Nystatin Cream 30 GM TUBE TOP SCH ×4 (11:48→20:45)
[2018-11-28] MEDS: Lidocaine 5% Patch TD SCH (11:48)
[2018-11-28] MEDS: Polyethylene Glycol 3350 17 GM Packet PO SCH (11:48)
[2018-11-28 12:03] LABS: #Lymphocytes 1.3 thou/uL (1.20-3.40); #Monocytes 0.9 thou/uL (0.11-0.59); #Neutrophils 3.9 thou/uL (1.40-6.50); %Basophils 0.2 % (0.0-1.0); %Eosinophils 0.6 % (0.0-10.0); %Lymphocytes 21.8 % (21.0-51.0); %Monocytes 14.3 % (0.0-10.0); %Neutrophils 63.1 % (42.0-75.0); Hemoglobin 8.7 g/dL (12.0-16.0); Mean Corpuscular Hemoglobin 23.6 pg (27.0-31.0); Mean Corpuscular Volume 81.3 fL (78.0-98.0); Mean Platelet Volume 7.2 fL (7.4-10.4); Platelet Count 297 thou/uL (130-400); RBC Distribution Width 18.2 % (11.5-14.5); Red Blood Cell (RBC) Count 3.69 mill/uL (4.20-5.40); White Blood Cell (WBC) Count 6.1 thou/uL (4.8-10.8)
[2018-11-28 12:29] LABS: Anion Gap 13 mmol/L (10-20); BUN (Urea Nitrogen) 14 mg/dL (9.8-20.1); Calc. Creatinine Clearance 53 mL/min (70-130); Calcium 9.4 mg/dL (7.8-10.44); Carbon Dioxide 30 mmol/L (23-31); Chloride 100 mmol/L (98-107); Estimated GFR-MDRD 56; Glucose 163 mg/dL (83-110); Potassium 3.8 mmol/L (3.5-5.1); Sodium 139 mmol/L (136-145)
[2018-11-28] MEDS: Atorvastatin Calcium 40 MG TAB PO SCH (20:44)
[2018-11-29] MEDS: Melatonin 3 MG TAB PO PRN (00:10)
[2018-11-29] MEDS: traMADol HCl 50 MG TAB PO PRN ×3 (03:46→21:04)
[2018-11-29] MEDS: Levothyroxine Sodium 25 MCG TAB PO SCH (06:04)
[2018-11-29] MEDS: Levothyroxine Sodium 112 MCG TAB PO SCH (06:04)
[2018-11-29] MEDS: Acetaminophen 325 MG TAB PO PRN (08:19)
[2018-11-29] MEDS: Torsemide 20 MG TAB PO SCH ×2 (08:21→14:21)
[2018-11-29] MEDS: Amiodarone 200 MG TAB PO SCH ×2 (08:23→21:05)
[2018-11-29] MEDS: Gabapentin 300 MG CAP PO SCH ×3 (08:24→21:05)
[2018-11-29] MEDS: Aspirin 81 mg Enteric Coated Tablet PO SCH (11:00)
[2018-11-29] MEDS: Apixaban 5 MG TAB PO SCH ×2 (11:01→21:05)
[2018-11-29] MEDS: Isosorbide Dinitrate 5 MG TAB PO SCH ×2 (11:02→21:04)
[2018-11-29] MEDS: HumaLOG 300 UNITS/3 ML VIAL SC PRN ×2 (11:10→17:58)
[2018-11-29] MEDS: Lidocaine 5% Patch TD SCH (11:36)
[2018-11-29] MEDS: Lubiprostone 24 MCG CAP PO SCH ×2 (11:36→18:15)
[2018-11-29] MEDS: Potassium Chloride 20 MEQ TAB PO SCH ×2 (11:36→18:21)
[2018-11-29] MEDS: Nystatin Cream 30 GM TUBE TOP SCH ×4 (11:36→21:07)
[2018-11-29] MEDS: Polyethylene Glycol 3350 17 GM Packet PO SCH (11:37)
[2018-11-29] MEDS: MEROPENEM 1 GM/50 ML 1 GM in Premix Bag 1 BAG IVPB SCH ×2 (12:56→21:08)
[2018-11-29] MEDS ORDERED: Meropenem 1 GM in Sodium Chloride 0.9% 100 ML IVPB SCH (14:00)
[2018-11-29] MEDS: Atorvastatin Calcium 40 MG TAB PO SCH (21:05)
[2018-11-29] MEDS: Lidocaine Patch Removal 1 EACH TOP SCH (21:06)
[2018-11-30] MEDS: traMADol HCl 50 MG TAB PO PRN ×2 (04:43→17:40)
[2018-11-30] MEDS: Levothyroxine Sodium 25 MCG TAB PO SCH (05:33)
[2018-11-30] MEDS: Levothyroxine Sodium 112 MCG TAB PO SCH (05:33)
[2018-11-30] MEDS: MEROPENEM 1 GM/50 ML 1 GM in Premix Bag 1 BAG IVPB SCH ×3 (05:34→21:32)
[2018-11-30 08:06] LABS: #Eosinphils 0.1 thou/uL (0.0-0.7); #Lymphocytes 1.6 thou/uL (1.20-3.40); #Neutrophils 7.6 thou/uL (1.40-6.50); %Basophils 0.3 % (0.0-1.0); %Eosinophils 0.7 % (0.0-10.0); %Monocytes 9.4 % (0.0-10.0); %Neutrophils 73.7 % (42.0-75.0); Hemoglobin 8.4 g/dL (12.0-16.0); Mean Corpuscular HGB CONC 30.3 g/dL (32.0-36.0); Mean Corpuscular Hemoglobin 24.2 pg (27.0-31.0); Mean Corpuscular Volume 79.9 fL (78.0-98.0); Mean Platelet Volume 7.5 fL (7.4-10.4); Platelet Count 292 thou/uL (130-400); RBC Distribution Width 18.9 % (11.5-14.5); Red Blood Cell (RBC) Count 3.49 mill/uL (4.20-5.40); White Blood Cell (WBC) Count 10.3 thou/uL (4.8-10.8)
[2018-11-30 08:29] LABS: Anion Gap 14 mmol/L (10-20); BUN (Urea Nitrogen) 16 mg/dL (9.8-20.1); Calc. Creatinine Clearance 46 mL/min (70-130); Calcium 9.1 mg/dL (7.8-10.44); Carbon Dioxide 33 mmol/L (23-31); Chloride 96 mmol/L (98-107); Estimated GFR-MDRD 48; Glucose 136 mg/dL (83-110); Potassium 3.9 mmol/L (3.5-5.1); Sodium 139 mmol/L (136-145)
[2018-11-30] MEDS: Apixaban 5 MG TAB PO SCH ×2 (08:47→20:17)
[2018-11-30] MEDS: Aspirin 81 mg Enteric Coated Tablet PO SCH (08:48)
[2018-11-30] MEDS: Amiodarone 200 MG TAB PO SCH ×2 (08:49→20:17)
[2018-11-30] MEDS: Gabapentin 300 MG CAP PO SCH ×3 (08:50→20:17)
[2018-11-30] MEDS: Torsemide 20 MG TAB PO SCH ×2 (08:51→13:52)
[2018-11-30] MEDS: Isosorbide Dinitrate 5 MG TAB PO SCH ×2 (08:54→20:17)
[2018-11-30] MEDS: Lubiprostone 24 MCG CAP PO SCH ×2 (09:09→17:51)
[2018-11-30] MEDS: Polyethylene Glycol 3350 17 GM Packet PO SCH (09:10)
[2018-11-30] MEDS: Potassium Chloride 20 MEQ TAB PO SCH ×2 (09:57→17:47)
[2018-11-30] MEDS: Nystatin Cream 30 GM TUBE TOP SCH ×4 (11:57→20:17)
[2018-11-30] MEDS: Lidocaine 5% Patch TD SCH (11:57)
--- NOTE | 2018-11-30 13:53 | PDOC.PN ---
- Subjective Encounter Start Date: 11/30/18 Encounter Start Time: 13:51 Subjective: Complaining of right wrist/hand pain and decreased movement. -: Had a fall prior to admission. - Objective Resuscitation Status - Order Detail: 11/20/18 17:00 Resuscitation Status Routine Resuscitation Status: FULL: Full Resuscitation Vital Signs & Weight: Vital Signs (12 hours) Temp Pulse Resp BP Pulse Ox 11/30/18 11:39 98.6 F 77 18 133/68 100 11/30/18 08:47 98 11/30/18 07:34 98.6 F 83 20 117/75 98 11/30/18 04:20 98.5 F 87 20 126/75 93 L Weight Admit Weight 156 lb 11.2 oz Weight 161 lb 3.2 oz Most Recent Monitor Data Heart Rate from ECG 92 NIBP 146/100 NIBP BP-Mean 115 Respiration from ECG 17 SpO2 71 I&O: 11/29/18 11/30/18 12/01/18 06:59 06:59 06:59 Intake Total 840 1120 Output Total 2275 Balance -1435 1120 Result Diagrams: 11/30/18 07:57 11/30/18 07:57 Additional Labs: Accuchecks 11/30/18 11/30/18 11/29/18 10:39 04:27 20:54 POC Glucose 149 H 132 H 132 H 11/29/18 16:40 POC Glucose 158 H Phys Exam - Physical Examination HEENT: PERRLA, moist MMs Neck: no nodes marked kyphosis noted Respiratory: no wheezing, no rhonchi fair air entry bilaterally Cardiovascular: RRR systolic murmur noted Gastrointestinal: soft, no distention, positive bowel sounds obese Musculoskeletal: pulses present mild bilateral leg edema. Right knee and leg dressings noted Neurological: non-focal, moves all 4 limbs awake and conversational Psychiatric: A&O x 3 Dx/Plan (1) CVA (cerebral vascular accident) Code(s): I63.9 - CEREBRAL INFARCTION, UNSPECIFIED Status: Acute Qualifiers: Precerebral and cerebral artery: posterior cerebral artery Laterality of affected vessel: left Comment: Suspected subacute CVA 24+ hrs old with L eye vision loss, d/w Neurosurgery about utility of tPa but no recommendations for anticoagulation or acute intervention, continue ASA, Stroke protocol, consult Neurology, check Echo /Carotids (2) Iron deficiency anemia Code(s): D50.9 - IRON DEFICIENCY ANEMIA, UNSPECIFIED Status: Acute Comment: S/p IV iron therapy (3) Acute metabolic encephalopathy Code(s): G93.41 - METABOLIC ENCEPHALOPATHY Status: Acute Comment: Likely iatrogenic due to medications, d/c all Morphine sulfate and limit psychotropes and sedating medications (4) C7 cervical fracture Code(s): S12.600A - UNSP DISP FX OF SEVENTH CERVICAL VERTEBRA, INIT FOR CLOS FX Status: Acute Qualifiers: Encounter type: initial encounter Fracture type: closed Fracture alignment: nondisplaced Comment: Cervical Collar, non-operative mgmt and pain control recommended but patient will not use cervical collar (5) Femur fracture, right Code(s): S72.91XA - UNSP FRACTURE OF RIGHT FEMUR, INIT FOR CLOS FX Status: Acute Qualifiers: Fracture type: closed Fracture alignment: nondisplaced Comment: Non-operative mgmt, PT for ambulation with RW, fall risk, likely with home PT (6) Paroxysmal atrial fibrillation with RVR Code(s): I48.0 - PAROXYSMAL ATRIAL FIBRILLATION Status: Acute Comment: Continue Amiodarone, current SR (7) ANUM (acute kidney injury) Code(s): N17.9 - ACUTE KIDNEY FAILURE, UNSPECIFIED Status: Acute Comment: Avoid nephrotoxic meds and limit contrast exposure, serial creatinine (8) Chronic diastolic congestive heart failure Code(s): I50.32 - CHRONIC DIASTOLIC (CONGESTIVE) HEART FAILURE Status: Chronic (9) Coronary artery disease Code(s): I25.10 - ATHSCL HEART DISEASE OF [place] CORONARY ARTERY W/O ANG PCTRS Status: Chronic Qualifiers: Coronary Disease-Associated Artery/Lesion type: [place] artery [place] vs. 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 control technician use Comment: Labile, ISS, serial accuchecks (11) GERD (gastroesophageal reflux disease) Code(s): K21.9 - GASTRO-ESOPHAGEAL REFLUX DISEASE WITHOUT ESOPHAGITIS Status: Chronic Qualifiers: Esophagitis presence: esophagitis presence not specified Qualified Code(s) : K21.9 - Gastro-esophageal reflux disease without esophagitis Comment: on PPI (12) Hypertension Code(s): I10 - ESSENTIAL (PRIMARY) HYPERTENSION Status: Chronic Qualifiers: Hypertension type: essential hypertension Qualified Code(s): I10 - Essential (primary) hypertension Comment: controlled (13) Severe aortic stenosis Code(s): I35.0 - NONRHEUMATIC AORTIC (VALVE) STENOSIS Status: Chronic Comment: TAVR contemplaated. (14) 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 Code(s): E11.649 - TYPE 2 DIABETES MELLITUS WITH HYPOGLYCEMIA WITHOUT COMA Status: Resolved (15) Dysphagia causing pulmonary aspiration with swallowing Code(s): R13.19 - OTHER DYSPHAGIA Status: Acute (16) Aspiration pneumonia Code(s): J69.0 - PNEUMONITIS DUE TO INHALATION OF FOOD AND VOMIT Status: Acute (17) Physical deconditioning Code(s): R53.81 - OTHER [place] Status: Acute - Plan get right hand and wrist x ray. -: Continue eliquis, sliding scale insulin and other treatments -: PT to continue. -: Diet as tolerated. * .
--- NOTE | 2018-11-30 14:08 | PRG ---
DATE OF SERVICE: 11/29/2018 SUBJECTIVE: The patient is more awake and appropriate today. She is also accepting to work with Physical Therapy today. Denied fever or chest pain. OBJECTIVE: VITAL SIGNS: Temperature 98.0, pulse 79, respiratory rate 20, SpO2 of 99% on nasal cannula 3 L, and blood pressure is 94/55. GENERAL: Elderly female, in mild distress. Afebrile, anicteric, acyanotic. HEENT: Normocephalic, atraumatic. Pupils are equal and reacting to light. CARDIOVASCULAR: Regular rhythm and rate with a blowing systolic murmur. GI: Obese, soft, nontender, nondistended with normal bowel sounds. EXTREMITIES: Mild bilateral leg edema noted. Dressing on the right knee and leg noted as well. MUSCULOSKELETAL: Marked kyphosis of the head and neck noted. NEUROLOGIC: Conscious, alert, oriented x3 with appropriate mental status. Cranial nerves 2 through 12 are intact. DIAGNOSTIC DATA: No CBC or BMP today. ASSESSMENT: 1. Acute cerebrovascular accident. MRI confirms cerebrovascular accident. 2. Acute metabolic encephalopathy: Multifactorial from urinary tract infection and acute cerebrovascular accident. Improving. 3. Iron deficiency anemia. The patient is status post IV iron therapy. 4. C7 fracture. The patient is supposed to be on cervical collar. The patient declined this. 5. Right femoral fracture. Orthopedic has seen the patient and no surgical intervention is recommended. 6. Paroxysmal atrial fibrillation with rapid ventricular response. The patient is currently in sinus rhythm, on amiodarone. 7. Acute kidney injury, clinically improved. 8. Chronic diastolic heart failure. 9. Coronary artery disease. No acute issues. Remains chest-pain free. 10. Type 2 diabetes mellitus. 11. Gastroesophageal reflux disease. 12. Hypertension: Blood pressure is soft at this time. 13. Severe aortic stenosis. 14. Complicated urinary tract infection. Blood culture grew Escherichia coli as well as multidrug-resistant Klebsiella. 15. Dysphagia causing pulmonary aspiration with swallowing. 16. Possible aspiration pneumonia. 17. Physical deconditioning. PLAN: 1. Start meropenem 1 g q.8h for MDR UTI. 2. Hold diuretics due to soft blood pressure. 3. Hold antihypertensives as well. 4. PT/OT to continue. 5. Case discussed with Infectious Disease. 6. Case management working with placement. Continue other treatments including insulin therapy and oral iron. Job ID: [id number]
--- NOTE | 2018-11-30 14:38 | RAD ---
THREE VIEWS OF RIGHT HAND: COMPARISON: None. HISTORY: Pain and swelling and decreased range of motion. FINDINGS: Three views right hand show severe diffuse soft tissue swelling. There are marginal erosions surroun ding the thumb metacarpophalangeal joint as well as the interphalangeal joints of the fingers. No fr acture or dislocation are seen. The DIP joints of the index and middle fingers may have pencil and c up deformities. 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 POS: MAGY
[2018-11-30] MEDS: Cyclobenzaprine 10 MG TAB PO PRN (20:17)
[2018-11-30] MEDS: Atorvastatin Calcium 40 MG TAB PO SCH (20:17)
[2018-11-30] MEDS: Melatonin 3 MG TAB PO PRN (20:17)
[2018-12-01] MEDS: Lidocaine Patch Removal 1 EACH TOP SCH (00:38)
[2018-12-01] MEDS: traMADol HCl 50 MG TAB PO PRN (00:38)
[2018-12-01] MEDS: MEROPENEM 1 GM/50 ML 1 GM in Premix Bag 1 BAG IVPB SCH ×2 (05:09→14:18)
[2018-12-01] MEDS: Levothyroxine Sodium 25 MCG TAB PO SCH (05:10)
[2018-12-01] MEDS: Cyclobenzaprine 10 MG TAB PO PRN (05:10)
[2018-12-01] MEDS: Levothyroxine Sodium 112 MCG TAB PO SCH (05:10)
[2018-12-01] MEDS: Acetaminophen 325 MG TAB PO PRN ×2 (06:14→14:18)
[2018-12-01] MEDS: Polyethylene Glycol 3350 17 GM Packet PO SCH (09:50)
[2018-12-01] MEDS: Lubiprostone 24 MCG CAP PO SCH (09:51)
[2018-12-01] MEDS: Apixaban 5 MG TAB PO SCH (09:52)
[2018-12-01] MEDS: Amiodarone 200 MG TAB PO SCH (09:52)
[2018-12-01] MEDS: Aspirin 81 mg Enteric Coated Tablet PO SCH (09:57)
[2018-12-01] MEDS: Potassium Chloride 20 MEQ TAB PO SCH (09:59)
[2018-12-01] MEDS: Gabapentin 300 MG CAP PO SCH (10:00)
[2018-12-01] MEDS: Lidocaine 5% Patch TD SCH (10:01)
[2018-12-01] MEDS: Isosorbide Dinitrate 5 MG TAB PO SCH (10:20)
[2018-12-01] MEDS: Torsemide 20 MG TAB PO SCH ×2 (10:23→15:07)
[2018-12-01] MEDS: Nystatin Cream 30 GM TUBE TOP SCH ×2 (11:35→14:18)
[2018-12-01] MEDS: HumaLOG 300 UNITS/3 ML VIAL SC PRN (11:35)
[2018-12-01 11:49] VITALS: BP 121/67; TEMP 97.8
--- NOTE | 2018-12-01 12:11 | DIS ---
DATE OF ADMISSION: 11/20/2018 DATE OF DISCHARGE: 12/01/2018 DISCHARGE DIAGNOSES: 1. Acute metabolic encephalopathy. 2. Acute cerebrovascular accident. 3. Hypoglycemia with encephalopathy. 4. Paroxysmal atrial fibrillation with rapid ventricular response. 5. Acute kidney injury. 6. Severe aortic stenosis. 7. C7 compression fracture. 8. Right hip fracture with failed hardware. 9. Chronic diastolic congestive heart failure. 10. Type 2 diabetes mellitus. 11. Gastroesophageal reflux disease. 12. Hypertension. 13. Dysphagia causing pulmonary aspiration with swallowing. 14. Aspiration pneumonia. 15. Physical deconditioning. 16. Iron deficiency anemia. 17. Chronic venous stasis. CONSULTS: 1. Pulmonary and Critical Care. 2. Neurosurgery. 3. Orthopedic Surgery. 4. Infectious Diseases. 5. Cardiology. HOSPITAL COURSE: An 83-year-old female with multiple comorbidities including diabetes on insulin who was brought in by EMS after she was found down by the niece associated with mental status change. EMS noticed that the patient had blood sugar in 20s. The patient was treated with dextrose infusion with good interval improvement. She however was found to be hypothermic and tachycardic. She also was noticed to be in some respiratory distress with hypoxia. There was some concern about sepsis and the patient was admitted to the ICU. The patient also had elevated lactic acid as well as leukocytosis. She also was found to have atrial fibrillation in rapid ventricular response. She was admitted to the ICU and was rewarmed. She also was started on broad-spectrum antibiotics for possible sepsis. Mental status improved with dextrose therapy and the patient was eating and drinking. Imaging showed C7 compression fracture as well as right hip fracture. Neurosurgery consult was obtained and they recommended [place] cervical collar all the time and [place] cervical collar for showering. The patient is to be followed up by Neurosurgery in four weeks. The patient also was seen by Orthopedic Surgery for the right hip fracture. The patient, however, was not interested in any surgical intervention. The patient was moving the limbs and was felt that this may have been chronic and weightbearing as tolerated, was recommended by Orthopedic Surgery. Microbiological workup for this patient was essentially unremarkable, hence Infectious Disease consult was obtained to help with antimicrobial therapy. Discontinuation of antimicrobial was recommended by Infectious Diseases as there was no overt evidence of infection and this seems to be due to hypoglycemia. While still in the hospital, the patient developed acute confusion and visual disturbances. CT scan done showed findings consistent with development of acute infarction within the left temporal and occipital region. Neurology consult was obtained and chronic anticoagulation was recommended for secondary prophylaxis given that the patient has paroxysmal atrial fibrillation. Prior to this event, the patient has not been on anticoagulation as Cardiology felt that she is high risk for fall. The patient with severe aortic stenosis for which she has been evaluated in [place] for possible transaortic valvular replacement, was seen by Cardiology and cardiac medications were optimized. The patient later flipped back into sinus rhythm and remained in sinus rhythm subsequently. Hospital course also was complicated by acute kidney injury, which necessitated discontinuation of diuretic for some time with improvement and the patient is currently back on diuretics. The patient also developed later down during this hospitalization urinary tract infection and cultures grew E. coli, which was pansensitive as well as Klebsiella which has multidrug resistance, hence the patient was started on meropenem. She is to have five days of treatment, but has received three days of meropenem. She will be discharged on Invanz for two more days. The patient also was noticed to have iron deficiency anemia for which she received IV iron therapy and was continued on oral iron. The patient also noticed to have dysphagia, which improved with speech therapy. She is currently tolerating thin liquid and regular diet. She also was found to have physical deconditioning, received physical therapy and occupational therapy, and she has been [facility] a [facility] facility for further restorative therapy. PHYSICAL EXAMINATION: VITAL SIGNS: Temperature 98.4, pulse 83, respiratory rate 18, SpO2 of 97% on room air, and blood pressure is 113/56. GENERAL: Elderly female, in no obvious distress. Afebrile, anicteric. NECK: Marked kyphosis noted. CARDIOVASCULAR: Regular rhythm and rate with normal heart sounds 1 and 2. Loud systolic murmur noticed over the precordium. RESPIRATORY: Fair air entry bilaterally with some transmitted sounds. GI: Obese, soft, nontender, nondistended with normal bowel sounds. EXTREMITIES: Mild bilateral leg edema noticed with distal leg erythema consistent with chronic venous stasis. Amputation of left toes noted. Some healing scabs also noticed on the right toes. NEUROLOGIC: Conscious and alert, oriented x3 with appropriate mental status. Cranial nerves 2 through 12 are intact. The patient moves all extremities. However, movement of the right hand is limited due to swelling and pain. MUSCULOSKELETAL: Marked kyphosis of the thoracic and cervical spine noted. DISCHARGE CONDITION: Improved. FOLLOWUPS: The patient is to follow up with the pump runner in 2 weeks. She is to follow up with Neurosurgery in 2 weeks. She is to follow up with PCP in 2 weeks. DISCHARGE MEDICATIONS: 1. Aspirin 81 mg p.o. daily. 2. Acetaminophen 1000 mg q.6 p.r.n. 3. Tramadol 50 mg q.6 p.r.n. 4. Torsemide 40 mg p.o. b.i.d. 5. Prednisone 10 mg p.o. daily. 6. Potassium chloride 40 mEq b.i.d. 7. Zofran 4 mg p.o. q.6 p.r.n. for nausea and vomiting. 8. Sublingual nitroglycerin 0.4 mg q.5 minutes p.r.n. for chest pain. 9. Multivitamin one tablet p.o. daily. 10. Metolazone 5 mg on Tuesdays and Fridays. 11. Lorazepam 0.5 mg p.o. daily at bedtime. 12. Levothyroxine 137 mcg p.o. daily. 13. MiraLAX 17 g p.o. daily. 14. Protonix 40 mg p.o. daily. 15. Nystatin cream topically q.i.d. 16. Naloxegol oxalate 12.5 mg daily (Movantik). 17. Melatonin 3 mg p.o. daily at bedtime p.r.n. for insomnia. 18. Amitiza 24 mcg p.o. b.i.d. 19. Lidocaine patch one topically daily. 20. Isosorbide dinitrate 10 mg p.o. b.i.d. 21. Sliding scale insulin 3 times daily with meals and at bedtime. 22. Gabapentin 600 mg t.i.d. 23. Flexeril 10 mg p.o. t.i.d. p.r.n. for spasm. 24. Cholecalciferol 5000 units p.o. daily. 25. Lipitor 40 mg p.o. daily at bedtime. 26. Eliquis 5 mg p.o. b.i.d. 27. Amiodarone 200 mg p.o. b.i.d. 28. Invanz 1 g intravenously daily for two days. TIME SPENT: This discharge took more than 1 hour. Job ID: [id number]
== END 2018-12-01 14:54 | DRG 551 ==
LOC: ERS 13:53 → CCU 16:30 → 2NO 11-21 21:39 → 2SE 11-25 14:46
PROVIDERS: ADMIT Internal Medicine; ATTEND Internal Medicine
DX: S12.601A Unspecified nondisplaced fracture of seventh cervical vertebra, initial encounter for closed fracture (principal); S72.91XA Unspecified fracture of right femur, initial encounter for closed fracture; G93.41 Metabolic encephalopathy; I50.43 Acute on chronic combined systolic (congestive) and diastolic (congestive) heart failure; J69.0 Pneumonitis due to inhalation of food and vomit; I63.532 Cerebral infarction due to unspecified occlusion or stenosis of left posterior cerebral artery; I13.0 Hypertensive heart and chronic kidney disease with heart failure and stage 1 through stage 4 chronic kidney disease, or unspecified chronic kidney disease; N39.0 Urinary tract infection, site not specified; N18.4 Chronic kidney disease, stage 4 (severe); N17.9 Acute kidney failure, unspecified; E11.649 Type 2 diabetes mellitus with hypoglycemia without coma; E11.22 Type 2 diabetes mellitus with diabetic chronic kidney disease; I48.91 Unspecified atrial fibrillation; Z79.01 Long term (current) use of anticoagulants; M10.9 Gout, unspecified; E78.5 Hyperlipidemia, unspecified; E87.6 Hypokalemia; I35.0 Nonrheumatic aortic (valve) stenosis; E03.9 Hypothyroidism, unspecified; I25.10 Atherosclerotic heart disease of native coronary artery without angina pectoris; B96.20 Unspecified Escherichia coli [E. coli] as the cause of diseases classified elsewhere; I95.9 Hypotension, unspecified; K21.9 Gastro-esophageal reflux disease without esophagitis; D50.9 Iron deficiency anemia, unspecified; I48.0 Paroxysmal atrial fibrillation; W19.XXXA Unspecified fall, initial encounter; Y92.019 Unspecified place in single-family (private) house as the place of occurrence of the external cause; Z90.49 Acquired absence of other specified parts of digestive tract; Z88.8 Allergy status to other drugs, medicaments and biological substances; Z79.84 Long term (current) use of oral hypoglycemic drugs; Z79.82 Long term (current) use of aspirin; Z79.52 Long term (current) use of systemic steroids; Z79.4 Long term (current) use of insulin
CPT/HCPCS: 36415; 36416; 51701; 70450; 71045; 72125; 80048; 80053; 80061; 80202; 81001; 81003; 81015; 82274; 82550; 82728; 82805; 83540; 83550; 83605; 83690; 83735; 84145; 84439; 84443; 84484; 85007; 85025; 85027; 85379; 85610; 85730; 86140; 87040; 87077; 87086; 87186; 93005; 93306; 93880; 94760; 96365; 96366; 96367; 96368; 96375; J0282; J0692; J1160; J1630; J1650; J1940; J2060; J2185; J2270; J2405; J2543; J2916; J3370; J3475; J3480; J7050; J7070; Q0162

== ENCOUNTER 2018-12-21 13:21 | Outpatient (CLI) | payer MEDICARE, BC ==
--- NOTE | 2018-12-21 13:50 | RAD ---
CERVICAL SPINE THREE VIEWS: 12/21/2018 HISTORY: Cervical spine compression fracture. COMPARISON: CT cervical spine from 11/20/2018. FINDINGS: The patient is markedly kyphotic and imaged in a wheelchair, which significantly limits detailed asse ssment of both the frontal and the lateral imaging. On image 3 of 4, the patient's known anti-wedge compression fracture of C7 is seen. The degree of an terior wedging at C7 is estimated in the 40% range. This is only an estimate secondary to the limita tions of this examination. There are multiple old left-sided rib fractures. Open-mouth odontoid vie w demonstrates a normal appearing dens and C2-C3 articulation. IMPRESSION: Anterior wedge compression fracture of C7, as detailed above. POS: OFF
== END 2018-12-21 13:22 | disposition home or self-care (01) ==
LOC: TBSIIMAG 13:21
PROVIDERS: ATTEND Neurological Surgery
DX: M48.52XA Collapsed vertebra, not elsewhere classified, cervical region, initial encounter for fracture (principal)
CPT/HCPCS: 72040

== ENCOUNTER 2019-03-08 11:30 | Inpatient (IN) | payer MEDICARE, BC ==
[2019-03-08 12:26] LABS: Bilirubin Negative (Negative); Blood, Urine Small (Negative); Glucose, Urine (Dipstick) Negative (Negative); Leukocyte Large (Negative); Nitrite Negative (Negative); Protein, Urine (Dipstick) Negative (Neg-Trace); Urobilinogen 0.2 mg/dL (Less than 2)
[2019-03-08 12:29] LABS: Clarity Turbid (Clear)
[2019-03-08 12:43] LABS: Bacteria/HPF 2+ HPF (None Seen); Squamous Epithelial 0-3 HPF (0-3); WBC/HPF Greater Than 50 HPF (0-3)
[2019-03-08 13:24] LABS: #Basophils 0.1 thou/uL (0.0-0.2); #Eosinphils 0.1 thou/uL (0.0-0.7); #Lymphocytes 1.6 thou/uL (1.20-3.40); #Monocytes 0.7 thou/uL (0.11-0.59); %Basophils 0.6 % (0.0-1.0); %Eosinophils 0.6 % (0.0-10.0); %Lymphocytes 18.4 % (21.0-51.0); %Monocytes 8.8 % (0.0-10.0); %Neutrophils 71.6 % (42.0-75.0); Mean Corpuscular HGB CONC 30.8 g/dL (32.0-36.0); Mean Corpuscular Hemoglobin 25.2 pg (27.0-31.0); Mean Corpuscular Volume 81.6 fL (78.0-98.0); Mean Platelet Volume 6.9 fL (7.4-10.4); Platelet Count 377 thou/uL (130-400); RBC Distribution Width 15.6 % (11.5-14.5); Red Blood Cell (RBC) Count 4.36 mill/uL (4.20-5.40); White Blood Cell (WBC) Count 8.4 thou/uL (4.8-10.8)
[2019-03-08 13:51] LABS: ALT (SGPT) Less than 7 U/L (8-55); AST (SGOT) 14 U/L (5-34); Albumin 3.1 g/dL (3.4-4.8); Alkaline Phosphatase 129 U/L (40-150); Anion Gap 14 mmol/L (10-20); BUN (Urea Nitrogen) 62 mg/dL (9.8-20.1); Bilirubin, Total 0.6 mg/dL (0.2-1.2); Calc. Creatinine Clearance 0 mL/min (70-130); Calcium 9.6 mg/dL (7.8-10.44); Carbon Dioxide 28 mmol/L (23-31); Chloride 94 mmol/L (98-107); Estimated GFR-MDRD 27; Globulin 3.5 g/dL (2.4-3.5); Glucose 118 mg/dL (83-110); Potassium 3.7 mmol/L (3.5-5.1); Protein, Total 6.6 g/dL (6.0-8.3); Sodium 132 mmol/L (136-145)
[2019-03-08] MEDS ORDERED: cefTRIAXone\\ROCEPHIN 1 GM VIAL ONE (16:34)
--- NOTE | 2019-03-08 16:39 | CT ---
CT OF THE BRAIN WITHOUT CONTRAST: Date: 03/08/19 COMPARISON: 11/25/18. HISTORY: Altered mental status. TECHNIQUE: Multiple contiguous axial images were obtained in a CT of the brain without contrast. FINDINGS: There are scattered hypodensities in the subcortical and periventricular white matter, likely seconda ry to small vessel ischemic disease. Remote encephalomalacia is seen in the left parietal lobe. No ne w confluent infarction is seen. There is no evidence of hydrocephalus, intracranial hemorrhage, or ex tra-axial fluid collections. The calvarium and overlying soft tissues are unremarkable. The visualized paranasal sinuses and masto id air cells are well aerated. IMPRESSION: No evidence of acute intracranial abnormality. POS: [facility]
[2019-03-08] MEDS ORDERED: Melatonin 3 MG TAB PO PRN (20:55)
[2019-03-08] MEDS ORDERED: Potassium Chloride 20 MEQ TAB PO SCH (21:00)
[2019-03-08] MEDS ORDERED: Ondansetron ODT 4 MG TAB PO PRN (21:25)
[2019-03-08] MEDS: Isosorbide Dinitrate 20 MG TAB PO SCH (22:04)
[2019-03-08] MEDS: Atorvastatin Calcium 40 MG TAB PO SCH (22:04)
[2019-03-08] MEDS: Apixaban 5 MG TAB PO SCH (22:04)
[2019-03-08] MEDS: Montelukast Sodium 10 mg Tablet PO SCH (22:04)
[2019-03-08] MEDS: traMADol HCl 50 MG TAB PO PRN (22:05)
[2019-03-08] MEDS: Gabapentin 300 MG CAP PO SCH (22:05)
[2019-03-08] MEDS: Torsemide 20 MG TAB PO SCH (22:06)
[2019-03-08 23:26] VITALS: BMI 23.1
[2019-03-09] MEDS ORDERED: Dextrose 50% Abboject 50 ML SYRINGE SLOW IVP PRN (00:43)
[2019-03-09] MEDS ORDERED: Dextrose 5% in Water 1,000 ML IV PRN (00:43)
[2019-03-09] MEDS: Sodium Chloride 0.9% 1,000 ML IV SCH ×6 (01:00→21:56)
--- NOTE | 2019-03-09 01:37 | HP ---
Date/Time of evaluation:03/08/19 6:30 pm CHIEF COMPLAINT: Altered mental status. HISTORY OF PRESENT ILLNESS: The patient is an 83-year-old female, with past medical history significant for recent CVA in November 2018, hypertension, diabetes mellitus, paroxysmal atrial fibrillation, diabetes mellitus, who presented to the hospital from her residence at [facility], with complaints of altered mental status per the half-way staff. She was diagnosed with a UTI 2 days prior to her presentation at the ER, and was placed on ciprofloxacin. Her PCP, Dr. Dillon has recommended admission for IV fluid resuscitation as well as IV antibiotics and to follow the patient's urine culture. Upon my interview, the patient is awake and alert and oriented x3. Since her CVA in November, she does complain of some expressive aphasia. She has been largely nonambulatory since her stroke. She has complaints to me today of some chronic left arm pain secondary to osteoarthritis, however, has no specific complaints of chest pain, shortness of breath, or dysuria. She denies any nausea, vomiting, fever, or chills. She denies any cough. On arrival to the ER, workup was significant for UA consisting of small amount of blood, large amount of leukocyte esterase, wbc's, and 2+ bacteria. This was sent for culture, and the patient was started on IV Rocephin. Her creatinine was elevated at 1.77, fairly significant above baseline, which was normal at her last hospitalization in November. She will be admitted to the hospitalist service for further workup and treatment. REVIEW OF SYSTEMS: As mentioned, the patient has complained of some chronic left arm pain. She has no other specific complaints to me at this time. She denies any nausea, vomiting, or diarrhea. No changes in her vision. No sick contacts. PAST MEDICAL HISTORY: Type 2 diabetes mellitus, paroxysmal atrial fibrillation, chronic venous stasis dermatitis and peripheral vascular disease, chronic low back pain, gout, hypertension, hyperlipidemia, chronic kidney disease, severe aortic stenosis, coronary artery disease. PAST SURGICAL HISTORY: Cholecystectomy, appendectomy, hysterectomy, multiple toes amputated on the left foot, coronary artery stents, knee replacement surgery. ALLERGIES: TO HYDROCODONE. SOCIAL HISTORY: The patient is and is currently living at [facility]. She has had 2 children, both of whom have . She is a nonsmoker and nondrinker. FAMILY HISTORY: Noncontributory. CURRENT MEDICATIONS: 1. Amiodarone 200 mg daily. 2. Aspirin 81 mg daily. 3. Vitamin D3 5000 units daily. 4. Gabapentin 600 mg p.o. t.i.d. 5. Insulin glargine 10 units subcu at bedtime. 6. Isosorbide dinitrate 10 mg p.o. b.i.d. 7. Levothyroxine 137 mcg p.o. daily. 8. Lubiprostone 24 mcg daily. 9. Montelukast 10 mg p.o. at bedtime. 10. Nitroglycerin 0.4 mg tab sublingual q.5 minutes p.r.n. chest pain. 11. Zofran 4 mg p.o. q.6 hours. 12. Potassium chloride 20 mEq tab 2 tabs p.o. b.i.d. 13. Torsemide 40 mg p.o. b.i.d. 14. Tramadol 50 mg p.o. q.6 hours. 15. Eliquis 5 mg tablet p.o. b.i.d. 16. Metolazone 5 mg tablet one tablet daily. 17. Humalog sliding scale insulin. PHYSICAL EXAMINATION: VITAL SIGNS: Temperature 97.4, pulse 78, respirations 16, O2 saturation is 97% on room air, blood pressure 109/57. GENERAL: The patient is an elderly female who appears frail, sitting up in bed, eating dinner. HEENT: Head is atraumatic and normocephalic. Mucous membranes are moist. NECK: Trachea is midline. CV: S1 and S2. Regular rhythm, harsh systolic murmur, grade 4/6. LUNGS: Regular respiratory rate and pattern, overall clear to auscultation. ABDOMEN: Positive bowel sounds. Soft, nontender. EXTREMITIES: Trace edema bilaterally, she does have chronic skin changes consistent with peripheral vascular disease. SKIN: Numerous areas of ecchymosis on her upper extremities. NEUROLOGIC: Cranial nerves 2 through 12 appear grossly intact. The patient is alert and oriented x3 upon my interview. LABORATORY DATA: White blood cell count 8.4, hemoglobin 11, hematocrit 35.6, platelets are 377. Sodium 132, potassium 3.7, BUN is 62, creatinine 1.77. AST, ALT, alkaline phosphatase all within normal limits. Urinalysis shows small amount of blood, large amount of leukocyte esterase, white blood cells, and 2+ urine bacteria. ASSESSMENT: 1. Urinary tract infection, urine cultures pending. 2. Altered mental status secondary to above. 3. [id number] renal insufficiency, creatinine 1.77, was 1.08 at last visit in November. 4. History of recent thromboembolic cerebrovascular accident at the left posterior cerebral artery with some residual deficits. 5. Paroxysmal atrial fibrillation, CHADS-VASc equals seven, anticoagulated with Eliquis. 6. Type 2 diabetes mellitus. 7. Severe aortic stenosis. PLANS: At this time, we will admit the patient for treatment of her UTI. Upon further review, her last urine culture 11/2018 appeared to be positive for E coli , which was susceptible to Rocephin, it was also positive for Klebsiella pneumoniae and vancomycin-resistant enterococcus. The patient at this time is afebrile, has no signs of sepsis and no white count. We will continue her Rocephin and await final urine culture. We will continue gentle IV hydration for this patient and monitor her creatinine. Hold diuretics for now and possibly restart tomorrow. We will need to monitor her fluid balance very carefully with her history of congestive heart failure and current diuretic use. The patient's last echo did show normal EF, and diastolic dysfunction was not mentioned. We will consult Physical therapy. Further recommendations based on hospital course. Job ID: [id number] [facility]
[2019-03-09] MEDS: Nystatin Powder 15 GM BOT TOP PRN (05:02)
[2019-03-09] MEDS: Levothyroxine Sodium 112 MCG TAB PO SCH (05:02)
[2019-03-09] MEDS: Levothyroxine Sodium 25 MCG TAB PO SCH (05:02)
[2019-03-09 05:24] LABS: #Eosinphils 0.1 thou/uL (0.0-0.7); #Lymphocytes 1.6 thou/uL (1.20-3.40); #Monocytes 0.6 thou/uL (0.11-0.59); %Basophils 0.6 % (0.0-1.0); %Eosinophils 2.1 % (0.0-10.0); %Lymphocytes 24.8 % (21.0-51.0); %Monocytes 9.4 % (0.0-10.0); %Neutrophils 63.1 % (42.0-75.0); Hemoglobin 9.2 g/dL (12.0-16.0); Mean Corpuscular HGB CONC 30.7 g/dL (32.0-36.0); Mean Corpuscular Hemoglobin 25.5 pg (27.0-31.0); Mean Corpuscular Volume 82.9 fL (78.0-98.0); Mean Platelet Volume 7.5 fL (7.4-10.4); Platelet Count 309 thou/uL (130-400); RBC Distribution Width 15.6 % (11.5-14.5); White Blood Cell (WBC) Count 6.4 thou/uL (4.8-10.8)
[2019-03-09 05:39] LABS: Anion Gap 13 mmol/L (10-20); BUN (Urea Nitrogen) 51 mg/dL (9.8-20.1); Calc. Creatinine Clearance 27 mL/min (70-130); Calcium 8.5 mg/dL (7.8-10.44); Carbon Dioxide 27 mmol/L (23-31); Chloride 97 mmol/L (98-107); Estimated GFR-MDRD 39; Glucose 146 mg/dL (83-110); Sodium 134 mmol/L (136-145)
[2019-03-09 05:43] LABS: Potassium 2.6 mmol/L (3.5-5.1)
[2019-03-09] MEDS ORDERED: Potassium Chloride 20 MEQ TAB PO SCH ×2 (06:15→08:00)
[2019-03-09] MEDS: cefTRIAXone\\ROCEPHIN 1 GM in Sodium Chloride 0.9% 100 ML IVPB SCH (08:46)
[2019-03-09] MEDS: Polyethylene Glycol 3350 17 GM Packet PO SCH (08:46)
[2019-03-09] MEDS: Isosorbide Dinitrate 20 MG TAB PO SCH ×2 (08:47→21:40)
[2019-03-09] MEDS: Amiodarone 200 MG TAB PO SCH (08:47)
[2019-03-09] MEDS: Cyanocobalamin (Vitamin B-12) 1,000 MCG TAB PO SCH (08:47)
[2019-03-09] MEDS: Apixaban 5 MG TAB PO SCH ×2 (08:48→21:40)
[2019-03-09] MEDS: Aspirin 81 mg Enteric Coated Tablet PO SCH (08:48)
[2019-03-09] MEDS: Gabapentin 300 MG CAP PO SCH ×3 (08:48→21:40)
[2019-03-09] MEDS ORDERED: Pantoprazole 40 MG GRANULES PACKET PO SCH (09:00)
[2019-03-09] MEDS: traMADol HCl 50 MG TAB PO PRN ×2 (10:25→18:21)
--- NOTE | 2019-03-09 12:08 | PDOC.PN ---
- Subjective Encounter Start Date: 03/09/19 Encounter Start Time: 12:05 Subjective: "cant you see whats wrong?", this is all i could get out of her. she has -: apparently acted very exaspirated with staff - Objective Vital Signs & Weight: Vital Signs (12 hours) Temp Pulse Resp BP Pulse Ox 03/09/19 07:49 97.8 F 69 16 135/72 97 03/09/19 04:10 98.2 F 82 18 115/62 95 Weight Weight 114 lb 10.246 oz Result Diagrams: 03/09/19 04:43 03/09/19 04:43 Additional Labs: Accuchecks 03/09/19 03/09/19 11:13 03:16 POC Glucose 220 H 212 H Phys Exam - Physical Examination Neck: no JVD Respiratory: clear to auscultation bilateral Cardiovascular: RRR 4/6 harsh sys murmur Gastrointestinal: soft, positive bowel sounds Musculoskeletal: no edema multiple ecchymosis on arms, trunk Dx/Plan (1) Hypokalemia Code(s): E87.6 - HYPOKALEMIA Status: Acute Comment: KCL replacement, serial monitoring (2) Coronary artery disease Code(s): I25.10 - ATHSCL HEART DISEASE OF [place] CORONARY ARTERY W/O ANG PCTRS Status: Chronic Qualifiers: Coronary Disease-Associated Artery/Lesion type: [place] artery [place] vs. transplanted heart: [place] heart Associated angina: without angina Qualified Code(s): I25.10 - Atherosclerotic heart disease of [place] coronary artery without angina pectoris Comment: on ASA,statin,BB (3) Diabetes type 2, controlled Code(s): E11.9 - TYPE 2 DIABETES MELLITUS WITHOUT COMPLICATIONS Status: Chronic Qualifiers: Diabetes mellitus long term care social worker insulin use: with fdc use Diabetes mellitus complication status: with kidney complications Diabetes mellitus complication detail: with chronic kidney disease Chronic kidney disease stage : stage 3 (moderate) Qualified Code(s): E11.22 - Type 2 diabetes mellitus with diabetic chronic kidney disease; N18.3 - Chronic kidney disease, stage 3 ( moderate); Z79.4 - termite treater (current) use of insulin Comment: (4) Dyslipidemia Code(s): E78.5 - HYPERLIPIDEMIA, UNSPECIFIED Status: Chronic Comment: on statin (5) Severe aortic stenosis Code(s): I35.0 - NONRHEUMATIC AORTIC (VALVE) STENOSIS Status: Chronic Comment: TAVR contemplaated. (6) Stasis dermatitis of both legs Code(s): I83.11 - VARICOSE VEINS OF RIGHT LOWER EXTREMITY WITH INFLAMMATION; I83.12 - VARICOSE VEINS OF LEFT LOWER EXTREMITY WITH INFLAMMATION Status: Chronic Comment: WCT for local skin care (7) UTI (urinary tract infection) Status: Resolved - Plan urine C&S here- no growth -: cont rocephin. need outpt C&S report -: cont iv fluids, add K+ .BMP in AM * .
[2019-03-09] MEDS: HumaLOG 300 UNITS/3 ML VIAL SC PRN ×2 (12:22→21:44)
[2019-03-09] MEDS ORDERED: D5 1/2 NS w/40 mEq KCL 1,000 ML IV SCH (12:30)
[2019-03-09] MEDS: Haloperidol 1 MG TAB PO SCH ×2 (15:40→21:40)
[2019-03-09] MEDS: Acetaminophen 500 MG TAB PO PRN (21:40)
[2019-03-09] MEDS: Montelukast Sodium 10 mg Tablet PO SCH (21:40)
[2019-03-09] MEDS: Atorvastatin Calcium 40 MG TAB PO SCH (21:41)
[2019-03-10] MEDS: Sodium Chloride 0.9% 1,000 ML IV SCH ×3 (02:01→14:36)
[2019-03-10] MEDS: Levothyroxine Sodium 112 MCG TAB PO SCH (05:11)
[2019-03-10] MEDS: traMADol HCl 50 MG TAB PO PRN ×2 (05:11→10:49)
[2019-03-10] MEDS: Levothyroxine Sodium 25 MCG TAB PO SCH (05:13)
[2019-03-10 06:17] LABS: Anion Gap 11 mmol/L (10-20); BUN (Urea Nitrogen) 37 mg/dL (9.8-20.1); Calc. Creatinine Clearance 37 mL/min (70-130); Carbon Dioxide 28 mmol/L (23-31); Chloride 101 mmol/L (98-107); Estimated GFR-MDRD 57; Glucose 141 mg/dL (83-110); Potassium 3.4 mmol/L (3.5-5.1); Sodium 137 mmol/L (136-145)
[2019-03-10] MEDS: Acetaminophen 500 MG TAB PO PRN ×3 (08:59→22:20)
[2019-03-10] MEDS: Polyethylene Glycol 3350 17 GM Packet PO SCH (08:59)
[2019-03-10] MEDS: Haloperidol 1 MG TAB PO SCH ×3 (08:59→21:06)
[2019-03-10] MEDS: Cyanocobalamin (Vitamin B-12) 1,000 MCG TAB PO SCH (09:00)
[2019-03-10] MEDS: Amiodarone 200 MG TAB PO SCH (09:00)
[2019-03-10] MEDS: Aspirin 81 mg Enteric Coated Tablet PO SCH (09:00)
[2019-03-10] MEDS: Torsemide 20 MG TAB PO SCH (09:00)
[2019-03-10] MEDS: Apixaban 5 MG TAB PO SCH ×2 (09:00→21:06)
[2019-03-10] MEDS: cefTRIAXone\\ROCEPHIN 1 GM in Sodium Chloride 0.9% 100 ML IVPB SCH (09:01)
[2019-03-10] MEDS: Gabapentin 300 MG CAP PO SCH ×3 (09:01→21:06)
[2019-03-10] MEDS: Isosorbide Dinitrate 20 MG TAB PO SCH ×2 (09:01→21:06)
--- NOTE | 2019-03-10 13:01 | RAD ---
EXAM: XR Wrist 3 Lt View STANDARD PROVIDED CLINICAL HISTORY: Pain and swelling COMPARISON: None FINDINGS: Soft tissue prominence about the carpus circumferentially. Vascular calcifications. Diffuse radiocarp al joint space loss. Erosive change involving ulnar styloid. No evidence for fracture. IMPRESSION: Conspicuous radiocarpal joint space loss and erosive change involving the ulnar styloid. Findings may be on the basis of metabolic or inflammatory arthropathy.
--- NOTE | 2019-03-10 13:04 | RAD ---
X-RAY CERVICAL SPINE AP LATERAL STANDARD: DATE: 03/10/2019. TIME: 11:48 a.m. CLINICAL INDICATION: Pain and swelling of the neck/cervical spine. COMPARISON: None.. Findings: Limited evaluation of the cervical spine due to incomplete visualization from overlying shoulders obs curing the mid to lower aspect. There is degenerative change. Left convexity curvature is seen. Lateral masses of C1 are appropriately aligned. The imaged aspects of the dens are intact. IMPRESSION: Limited visualization of the cervical spine revealing multilevel degenerative change. No discrete jesusita dence of acute fracture. Transcribed Date/Time: 03/10/2019 1:16 PM
--- NOTE | 2019-03-10 14:09 | PDOC.PN ---
- Subjective Encounter Start Date: 03/10/19 Encounter Start Time: 14:08 Subjective: c/o left wrist pain and pain at the base of skull left side -: agiatated and feels no one listens to her"last doctor just walked out" -: does not want to go back to same NH - Objective MAR Reviewed: Yes Vital Signs & Weight: Vital Signs (12 hours) Temp Pulse Resp BP Pulse Ox 03/10/19 08:00 97.6 F 63 18 114/59 L 96 Weight Admit Weight 114 lb 10.246 oz Weight 114 lb 10.246 oz I&O: 03/09/19 03/10/19 03/11/19 06:59 06:59 06:59 Intake Total 2680 Balance 2680 Result Diagrams: 03/09/19 04:43 03/10/19 05:28 Additional Labs: Accuchecks 03/10/19 03/10/19 03/09/19 11:55 04:53 20:06 POC Glucose 149 H 172 H 270 H 03/09/19 16:20 POC Glucose 180 H Microbiology 11/26/18 02:57 Urine voided Urine Culture - Final Escherichia coli Klebsiella pneumoniae ssp pneu Yeast species Vanc-resistant Enterococcus 03/08/19 12:03 Urine voided Urine Culture - Preliminary NO GROWTH AT 24 HOURS Radiology Reviewed by me: Yes (wrist XR-erosive/inflammatory changes) Phys Exam - Physical Examination Constitutional: NAD severe scoliosis HEENT: PERRLA, moist MMs, sclera anicteric, oral pharynx no lesions Neck: no nodes, no JVD, supple, full ROM Respiratory: no wheezing, no rales, no rhonchi, clear to auscultation bilateral Cardiovascular: RRR systolic murmur Gastrointestinal: soft, non-tender, no distention, positive bowel sounds Musculoskeletal: no edema, pulses present mild left wrist swelling and tenderness Neurological: non-focal, normal sensation, moves all 4 limbs Psychiatric: normal affect, A&O x 3 Dx/Plan (1) Altered mental status Code(s): R41.82 - ALTERED MENTAL STATUS, UNSPECIFIED Status: Acute Comment: Now cleared (2) UTI (urinary tract infection) Status: Suspected Comment: last Cx w VRE. pt c/o some dysuria (3) C7 cervical fracture Code(s): S12.600A - UNSP DISP FX OF SEVENTH CERVICAL VERTEBRA, INIT FOR CLOS FX Status: Chronic Qualifiers: Encounter type: initial encounter Fracture type: closed Fracture alignment: nondisplaced Comment: in 11/2018 non-operative mgmt and pain control recommended at that time (4) Femur fracture, right Code(s): S72.91XA - UNSP FRACTURE OF RIGHT FEMUR, INIT FOR CLOS FX Status: Chronic Qualifiers: Fracture type: closed Fracture alignment: nondisplaced Comment: in Non-operative mgmt, PT for ambulation with RW, fall risk, likely with home PT (5) Physical deconditioning Code(s): R53.81 - OTHER MALAISE Status: Chronic (6) 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 transplanted heart: [place] heart Associated angina: without angina Qualified Code(s): I25.10 - Atherosclerotic heart disease of [place] coronary artery without angina pectoris Comment: on ASA,statin,BB (9) DM type 2 (diabetes mellitus, type 2) Status: Chronic Qualifiers: Diabetes mellitus usp insulin use: with usp use Comment: Labile, ISS, serial accuchecks (10) Dyslipidemia Code(s): E78.5 - HYPERLIPIDEMIA, UNSPECIFIED Status: Chronic Comment: on statin (11) GERD (gastroesophageal reflux disease) Code(s): K21.9 - GASTRO-ESOPHAGEAL REFLUX DISEASE WITHOUT ESOPHAGITIS Status: Chronic Qualifiers: Esophagitis presence: esophagitis presence not specified Qualified Code(s) : K21.9 - Gastro-esophageal reflux disease without esophagitis Comment: on PPI (12) Hypertension Code(s): I10 - ESSENTIAL (PRIMARY) HYPERTENSION Status: Chronic Qualifiers: Hypertension type: essential hypertension Qualified Code(s): I10 - Essential (primary) hypertension Comment: controlled (13) Hypothyroidism Code(s): E03.9 - HYPOTHYROIDISM, UNSPECIFIED Status: Chronic Qualifiers: Comment: continue synthroid (14) Paroxysmal atrial fibrillation Code(s): I48.0 - PAROXYSMAL ATRIAL FIBRILLATION Status: Chronic Comment: on Amiodarone and low dose Eliquis and ASA after CVA 11/2018 (15) Severe aortic stenosis by prior echocardiogram Code(s): I35.0 - NONRHEUMATIC AORTIC (VALVE) STENOSIS Status: Chronic Comment: [facility] plan for TAVR but too unstable currently (16) Stasis dermatitis of both legs Code(s): I83.11 - VARICOSE VEINS OF RIGHT LOWER EXTREMITY WITH INFLAMMATION; I83.12 - VARICOSE VEINS OF LEFT LOWER EXTREMITY WITH INFLAMMATION Status: Chronic Comment: WCT for local skin care - Plan continue antibiotics, PT/OT, out of bed/ambulate, DVT proph w/SCDs Id consult as i do not susp[ect this to be a true UTI.prior Cx w VRE which -: was not treated as per as Chart review -: add prn NSAID w close monitoring of renal Fx. stop demadex as also on -: zaroxolyn.does not seem to be in any fluid OL -: supportive care.am labs.discussed w CM-will arrange differant NH * .Xray wrist shows inflammatory arthropathy c/w known h/o RA * * recent C7 fracture 11/2018-supportive care Review of Systems - Review of Systems Constitutional: weakness, malaise Musculoskeletal: Hand Pain - Medications/Allergies Allergies/Adverse Reactions: Allergies Allergy/AdvReac Type Severity Reaction Status Date / Time hydrocodone [From [place]] Allergy Hives Verified 03/09/19 00:45 Medications: Current Medications Acetaminophen (Tylenol) 1,000 mg PO Q6H PRN PRN Reason: Headache/Fever or Pain MILD Last Admin: 03/10/19 08:59 Dose: 1,000 mg Amiodarone HCl (Cordarone) 200 mg PO DAILY ON LICENSE OF [facility] Last Admin: 03/10/19 09:00 Dose: 200 mg Apixaban (Eliquis) 5 mg PO BID ON LICENSE OF [facility] Last Admin: 03/10/19 09:00 Dose: 5 mg Aspirin (Ecotrin) 81 mg PO DAILY ON [facility] Last Admin: 03/10/19 09:00 Dose: 81 mg Atorvastatin Calcium (Lipitor) 40 mg PO HS ON LICENSE OF [facility] Last Admin: 03/09/19 21:41 Dose: 40 mg Celecoxib (Celebrex) 100 mg PO BID PRN PRN Reason: Muscle Pain Celecoxib (Celebrex) 100 mg PO ONE ON LICENSE OF [facility] Cyanocobalamin (Vitamin B-12) 5,000 mcg PO DAILY ON LICENSE OF [facility] Last Admin: 03/10/19 09:00 Dose: 5,000 mcg Dextrose/Water (Dextrose 50%) 25 gm SLOW IVP PRN PRN PRN Reason: Hypoglycemia Gabapentin (Neurontin) 600 mg PO TID ON LICENSE OF [facility] Last Admin: 03/10/19 09:01 Dose: 600 mg Glucagon (Glucagon) 1 mg IM PRN PRN PRN Reason: Hypoglycemia Haloperidol (Haldol) 1 mg PO TID ON LICENSE OF [facility] Last Admin: 03/10/19 08:59 Dose: 1 mg Ceftriaxone Sodium 1 gm/ (Sodium Chloride) 100 mls @ 200 mls/hr IVPB DAILY ON LICENSE OF [facility] Last Admin: 03/10/19 09:01 Dose: 100 mls Dextrose/Water (D5w) 1,000 mls @ 0 mls/hr IV .Q0M PRN PRN Reason: Hypoglycemia Sodium Chloride (Normal Saline 0.9%) 1,000 mls @ 100 mls/hr IV .Q10H ON LICENSE OF [facility] Last Admin: 03/10/19 09:01 Dose: Not Given Insulin Human Lispro (Humalog) 0 units SC .MILD SLIDING SCALE PRN PRN Reason: Mild Correctional Scale Last Admin: 03/09/19 12:22 Dose: 3 units Insulin Human Lispro (Humalog) 0 units SC .BEDTIME SLIDING SC PRN PRN Reason: Bedtime Correctional Scale Last Admin: 03/09/19 21:44 Dose: 3 unit Isosorbide Dinitrate (Isordil) 10 mg PO BID ON LICENSE OF [facility] Last Admin: 03/10/19 09:01 Dose: 10 mg Levothyroxine Sodium (Synthroid) 112 mcg PO 0600 ON [facility] OF [facility] Last Admin: 03/10/19 05:11 Dose: 112 mcg Levothyroxine Sodium (Synthroid) 25 mcg PO 0600 ON [facility] Last Admin: 03/10/19 05:13 Dose: 25 mcg Melatonin (Melatonin) 3 mg PO HS PRN PRN Reason: Insomnia Metolazone (Zaroxolyn) 5 mg PO 0830 ON LICENSE OF [facility] Montelukast Sodium (Singulair) 10 mg PO HS ON LICENSE OF [facility] Last Admin: 03/09/19 21:40 Dose: 10 mg Nystatin (Mycostatin Powder) 0 gm TOP PRN PRN PRN Reason: TOPICAL IRRITATION Last Admin: 03/09/19 05:02 Dose: 1 appful Ondansetron HCl (Zofran Odt) 4 mg PO Q6H PRN PRN Reason: Nausea/Vomiting Last Admin: 03/08/19 22:04 Dose: 4 mg Pantoprazole Sodium (Protonix) 40 mg PO DAILY ON [facility] Last Admin: 03/10/19 09:00 Dose: 40 mg Polyethylene Glycol (Miralax) 17 gm PO DAILY ON [facility] Last Admin: 03/10/19 08:59 Dose: 17 gm Potassium Chloride (Klor-Con) 40 meq PO BID-WM ON LICENSE OF [facility] Last Admin: 03/10/19 08:59 Dose: 40 meq Potassium Chloride (Potassium Chloride) 40 meq IVPB ONE ON LICENSE OF [facility] Sodium Chloride (Flush - Normal Saline) 10 ml IVF Q12HR ON LICENSE OF [facility] Last Admin: 03/10/19 09:02 Dose: Not Given Sodium Chloride (Flush - Normal Saline) 10 ml IVF PRN PRN PRN Reason: Saline Flush Tramadol HCl (Ultram) 50 mg PO Q6H PRN PRN Reason: Mild Pain (1-3) 2ND LINE Last Admin: 03/10/19 10:49 Dose: 50 mg
[2019-03-10] MEDS ORDERED: CeleCOXIB 100 MG CAP PO SCH (14:15)
[2019-03-10] MEDS: Metolazone 5 MG TAB PO SCH (14:34)
[2019-03-10] MEDS ORDERED: Ondansetron PF 4 MG/2 ML Vial IVP PRN (14:56)
[2019-03-10] MEDS ORDERED: Potassium Chloride 40 MEQ in Sodium Chloride 0.9% 500 ML IVPB SCH (15:00)
[2019-03-10] MEDS: HumaLOG 300 UNITS/3 ML VIAL SC PRN ×2 (17:34→21:07)
[2019-03-10] MEDS: Atorvastatin Calcium 40 MG TAB PO SCH (21:06)
[2019-03-10] MEDS: Montelukast Sodium 10 mg Tablet PO SCH (21:06)
[2019-03-11] MEDS: HumaLOG 300 UNITS/3 ML VIAL SC PRN ×2 (05:52→17:35)
[2019-03-11] MEDS: Levothyroxine Sodium 25 MCG TAB PO SCH (05:52)
[2019-03-11] MEDS: Levothyroxine Sodium 112 MCG TAB PO SCH (05:52)
[2019-03-11] MEDS: traMADol HCl 50 MG TAB PO PRN ×2 (06:11→17:33)
[2019-03-11 07:22] LABS: Anion Gap 11 mmol/L (10-20); BUN (Urea Nitrogen) 32 mg/dL (9.8-20.1); Calc. Creatinine Clearance 38 mL/min (70-130); Calcium 8.7 mg/dL (7.8-10.44); Carbon Dioxide 25 mmol/L (23-31); Chloride 105 mmol/L (98-107); Estimated GFR-MDRD 58; Glucose 131 mg/dL (83-110); Potassium 3.4 mmol/L (3.5-5.1); Sodium 138 mmol/L (136-145)
[2019-03-11 08:15] LABS: #Eosinphils 0.1 thou/uL (0.0-0.7); #Monocytes 0.5 thou/uL (0.11-0.59); #Neutrophils 4.8 thou/uL (1.40-6.50); %Basophils 0.7 % (0.0-1.0); %Eosinophils 1.7 % (0.0-10.0); %Lymphocytes 15.7 % (21.0-51.0); %Monocytes 7.4 % (0.0-10.0); %Neutrophils 74.4 % (42.0-75.0); Anisocytosis SLIGHT = 6-15 cells (100X) (0-5/hpf); Hypochromia SLIGHT = 6-15 cells (100X) (0-5/hpf); MDiff Complete? YES; Mean Corpuscular HGB CONC 29.8 g/dL (32.0-36.0); Mean Corpuscular Volume 83.8 fL (78.0-98.0); Mean Platelet Volume 6.7 fL (7.4-10.4); Platelet Count 277 thou/uL (130-400); Poikilocytosis SLIGHT = 6-15 cells (100X) (0-5/hpf); RBC Distribution Width 15.3 % (11.5-14.5); Red Blood Cell (RBC) Count 3.59 mill/uL (4.20-5.40); White Blood Cell (WBC) Count 6.5 thou/uL (4.8-10.8)
[2019-03-11] MEDS: Sodium Chloride 0.9% 1,000 ML IV SCH ×3 (08:59→20:59)
[2019-03-11] MEDS: Apixaban 5 MG TAB PO SCH ×2 (09:00→21:05)
[2019-03-11] MEDS: Cyanocobalamin (Vitamin B-12) 1,000 MCG TAB PO SCH (09:00)
[2019-03-11] MEDS: Isosorbide Dinitrate 20 MG TAB PO SCH ×2 (09:01→21:05)
[2019-03-11] MEDS: Haloperidol 1 MG TAB PO SCH ×3 (09:02→21:04)
[2019-03-11] MEDS: Gabapentin 300 MG CAP PO SCH ×3 (09:02→21:05)
[2019-03-11] MEDS: Aspirin 81 mg Enteric Coated Tablet PO SCH (09:03)
[2019-03-11] MEDS: cefTRIAXone\\ROCEPHIN 1 GM in Sodium Chloride 0.9% 100 ML IVPB SCH (09:03)
[2019-03-11] MEDS: Amiodarone 200 MG TAB PO SCH (09:03)
[2019-03-11] MEDS: Metolazone 5 MG TAB PO SCH (09:03)
[2019-03-11] MEDS: Polyethylene Glycol 3350 17 GM Packet PO SCH (09:04)
--- NOTE | 2019-03-11 13:48 | PDOC.PN ---
- Subjective Encounter Start Date: 03/11/19 Encounter Start Time: 13:47 Subjective: feels OK.no new complaints - Objective MAR Reviewed: Yes Vital Signs & Weight: Vital Signs (12 hours) Temp Pulse Resp BP Pulse Ox 03/11/19 09:22 97 03/11/19 08:00 98.3 F 69 20 120/61 97 Weight Admit Weight 114 lb 10.246 oz Weight 114 lb 10.246 oz I&O: 03/10/19 03/11/19 03/12/19 06:59 06:59 06:59 Intake Total 2680 1350 Balance 2680 1350 Result Diagrams: 03/11/19 06:43 03/11/19 06:43 Additional Labs: Accuchecks 03/11/19 03/11/19 03/10/19 12:05 05:52 19:46 POC Glucose 125 H 167 H 233 H 03/10/19 16:30 POC Glucose 241 H Microbiology 03/08/19 12:03 Urine voided Urine Culture - Final 11/26/18 02:57 Urine voided Urine Culture - Final Escherichia coli Klebsiella pneumoniae ssp pneu Yeast species Vanc-resistant Enterococcus Phys Exam - Physical Examination Constitutional: NAD HEENT: PERRLA, moist MMs, sclera anicteric, oral pharynx no lesions Neck: no nodes, no JVD, supple, full ROM Respiratory: no wheezing, no rales, no rhonchi, clear to auscultation bilateral Cardiovascular: RRR, no significant murmur, no rub Gastrointestinal: soft, non-tender, no distention, positive bowel sounds Musculoskeletal: no edema, pulses present severe scoliosis Neurological: non-focal, normal sensation, moves all 4 limbs Psychiatric: normal affect, A&O x 3 Skin: no rash Dx/Plan (1) Altered mental status Code(s): R41.82 - ALTERED MENTAL STATUS, UNSPECIFIED Status: Acute Comment: Now cleared (2) UTI (urinary tract infection) Status: Suspected Comment: last Cx w VRE. pt c/o some dysuria (3) C7 cervical fracture Code(s): S12.600A - UNSP DISP FX OF SEVENTH CERVICAL VERTEBRA, INIT FOR CLOS FX Status: Chronic Qualifiers: Encounter type: initial encounter Fracture type: closed Fracture alignment: nondisplaced Comment: in 11/2018 non-operative mgmt and pain control recommended at that time (4) Femur fracture, right Code(s): S72.91XA - UNSP FRACTURE OF RIGHT FEMUR, INIT FOR CLOS FX Status: Chronic Qualifiers: Fracture type: closed Fracture alignment: nondisplaced Comment: in Non-operative mgmt, PT for ambulation with RW, fall risk, likely with home PT (5) Physical deconditioning Code(s): R53.81 - OTHER MALAISE Status: Chronic (6) 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 transplanted heart: [place] heart Associated angina: without angina Qualified Code(s): I25.10 - Atherosclerotic heart disease of [place] coronary artery without angina pectoris Comment: on ASA,statin,BB (9) DM type 2 (diabetes mellitus, type 2) Status: Chronic Qualifiers: Diabetes mellitus long term care phlebotomist insulin use: with group home use Comment: Labile, ISS, serial accuchecks (10) Dyslipidemia Code(s): E78.5 - HYPERLIPIDEMIA, UNSPECIFIED Status: Chronic Comment: on statin (11) GERD (gastroesophageal reflux disease) Code(s): K21.9 - GASTRO-ESOPHAGEAL REFLUX DISEASE WITHOUT ESOPHAGITIS Status: Chronic Qualifiers: Esophagitis presence: esophagitis presence not specified Qualified Code(s) : K21.9 - Gastro-esophageal reflux disease without esophagitis Comment: on PPI (12) Hypertension Code(s): I10 - ESSENTIAL (PRIMARY) HYPERTENSION Status: Chronic Qualifiers: Hypertension type: essential hypertension Qualified Code(s): I10 - Essential (primary) hypertension Comment: controlled (13) Hypothyroidism Code(s): E03.9 - HYPOTHYROIDISM, UNSPECIFIED Status: Chronic Qualifiers: Comment: continue synthroid (14) Paroxysmal atrial fibrillation Code(s): I48.0 - PAROXYSMAL ATRIAL FIBRILLATION Status: Chronic Comment: on Amiodarone and low dose Eliquis and ASA after CVA 11/2018 (15) Severe aortic stenosis by prior echocardiogram Code(s): I35.0 - NONRHEUMATIC AORTIC (VALVE) STENOSIS Status: Chronic Comment: [facility] plan for TAVR but too unstable currently (16) Stasis dermatitis of both legs Code(s): I83.11 - VARICOSE VEINS OF RIGHT LOWER EXTREMITY WITH INFLAMMATION; I83.12 - VARICOSE VEINS OF LEFT LOWER EXTREMITY WITH INFLAMMATION Status: Chronic Comment: WCT for local skin care - Plan DVT proph w/SCDs Id resc requested regarding Urine Cx findings -: HD stable otherwise -: DC to [facility] on wednesday -: home meds * . Review of Systems - Review of Systems Constitutional: weakness, malaise. negative: fever, chills, sweats, other Respiratory: negative: Cough, Dry, Shortness of Breath, Hemoptysis, SOB with Excertion, Pleuritic Pain, Sputum, Wheezing Cardiovascular: negative: chest pain, palpitations, orthopnea, paroxysmal nocturnal dyspnea, edema, light headedness, other Gastrointestinal: negative: Nausea, Vomiting, Abdominal Pain, Diarrhea, Constipation, Melena, Hematochezia, Other Genitourinary: negative: Dysuria, Frequency, Incontinence, Hematuria, Retention , Other Musculoskeletal: Hand Pain. negative: Neck Pain, Shoulder Pain, Arm Pain, Back Pain, Leg Pain, Foot Pain, Other Neurological: negative: Weakness, Numbness, Incoordination, Change in Speech, Confusion, Seizures, Other - Medications/Allergies Allergies/Adverse Reactions: Allergies Allergy/AdvReac Type Severity Reaction Status Date / Time hydrocodone [From [place]] Allergy Hives Verified 03/09/19 00:45 Medications: Current Medications Acetaminophen (Tylenol) 1,000 mg PO Q6H PRN PRN Reason: Headache/Fever or Pain MILD Last Admin: 03/10/19 22:20 Dose: 1,000 mg Amiodarone HCl (Cordarone) 200 mg PO DAILY [facility] Last Admin: 03/11/19 09:03 Dose: 200 mg Apixaban (Eliquis) 5 mg PO BID [facility] Last Admin: 03/11/19 09:00 Dose: 5 mg Aspirin (Ecotrin) 81 mg PO DAILY [facility] Last Admin: 03/11/19 09:03 Dose: 81 mg Atorvastatin Calcium (Lipitor) 40 mg PO HS [facility] Last Admin: 03/10/19 21:06 Dose: 40 mg Celecoxib (Celebrex) 100 mg PO BIDPRN PRN PRN Reason: Muscle Pain Stop: 03/13/19 23:59 Cyanocobalamin (Vitamin B-12) 5,000 mcg PO DAILY [facility] Last Admin: 03/11/19 09:00 Dose: 5,000 mcg Dextrose/Water (Dextrose 50%) 25 gm SLOW IVP PRN PRN PRN Reason: Hypoglycemia Gabapentin (Neurontin) 600 mg PO TID [facility] Last Admin: 03/11/19 09:02 Dose: 600 mg Glucagon (Glucagon) 1 mg IM PRN PRN PRN Reason: Hypoglycemia Haloperidol (Haldol) 1 mg PO TID [facility] Last Admin: 03/11/19 09:02 Dose: 1 mg Ceftriaxone Sodium 1 gm/ (Sodium Chloride) 100 mls @ 200 mls/hr IVPB DAILY [facility] Last Admin: 03/11/19 09:03 Dose: 100 mls Dextrose/Water (D5w) 1,000 mls @ 0 mls/hr IV .Q0M PRN PRN Reason: Hypoglycemia Sodium Chloride (Normal Saline 0.9%) 1,000 mls @ 100 mls/hr IV .Q10H [facility] Last Admin: 03/11/19 08:59 Dose: 1,000 mls Insulin Human Lispro (Humalog) 0 units SC .MILD SLIDING SCALE PRN PRN Reason: Mild Correctional Scale Last Admin: 03/11/19 05:52 Dose: 2 units Insulin Human Lispro (Humalog) 0 units SC .BEDTIME SLIDING SC PRN PRN Reason: Bedtime Correctional Scale Last Admin: 03/10/19 21:07 Dose: 2 unit Isosorbide Dinitrate (Isordil) 10 mg PO BID [facility] Last Admin: 03/11/19 09:01 Dose: 10 mg Levothyroxine Sodium (Synthroid) 112 mcg PO 0600 [facility] Last Admin: 03/11/19 05:52 Dose: 112 mcg Levothyroxine Sodium (Synthroid) 25 mcg PO 0600 [facility] Last Admin: 03/11/19 05:52 Dose: 25 mcg Melatonin (Melatonin) 3 mg PO HS PRN PRN Reason: Insomnia Metolazone (Zaroxolyn) 5 mg PO 0830 [facility] Last Admin: 03/11/19 09:03 Dose: 5 mg Montelukast Sodium (Singulair) 10 mg PO HS [facility] Last Admin: 03/10/19 21:06 Dose: 10 mg Nystatin (Mycostatin Powder) 0 gm TOP PRN PRN PRN Reason: TOPICAL IRRITATION Last Admin: 03/09/19 05:02 Dose: 1 appful Ondansetron HCl (Zofran Odt) 4 mg PO Q6H PRN PRN Reason: Nausea/Vomiting Last Admin: 03/08/19 22:04 Dose: 4 mg Ondansetron HCl (Zofran) 4 mg IVP Q6H PRN PRN Reason: Nausea Last Admin: 03/10/19 15:35 Dose: 4 mg Pantoprazole Sodium (Protonix) 40 mg PO DAILY [facility] Last Admin: 03/11/19 09:03 Dose: 40 mg Polyethylene Glycol (Miralax) 17 gm PO DAILY [facility] Last Admin: 03/11/19 09:04 Dose: Not Given Potassium Chloride (Klor-Con) 40 meq PO BID-WM [facility] Last Admin: 03/11/19 09:00 Dose: 40 meq Sodium Chloride (Flush - Normal Saline) 10 ml IVF Q12HR [facility] Last Admin: 03/11/19 09:04 Dose: Not Given Sodium Chloride (Flush - Normal Saline) 10 ml IVF PRN PRN PRN Reason: Saline Flush Tramadol HCl (Ultram) 50 mg PO Q6H PRN PRN Reason: Mild Pain (1-3) 2ND LINE Last Admin: 03/11/19 06:11 Dose: 50 mg
--- NOTE | 2019-03-11 16:39 | CON ---
DATE OF CONSULTATION: 03/11/2019 REASON FOR CONSULTATION: Evaluate urinalysis and urine culture findings. HISTORY OF PRESENT ILLNESS: An 83-year-old who has history of diabetes, atrial fibrillation, venous stasis, gout, chronic low back pain, whom I had seen in November for altered mental status and concern with sepsis. At that time, there was absence of inflammatory process evidence. We advised discontinuation of antimicrobial therapy and felt that hypoglycemia was the cause of the patient's symptoms. This time, she was brought in for evaluation of mental status changes. I spoke with the nurse at the senior living and she stated that the patient was more goofy than usual in her own words. There had been no reported respiratory symptoms. No aspiration. No cough. No fever. She had not complained of any urinary symptoms and had no diarrhea or constipation. The urine sample submitted and it was abnormal as usual with [id number] wbc's and a culture was positive for E. coli with a broad susceptibility profile as the only organism isolated. The patient has polyarticular symptoms related to polyarticular gout, which has been identified in the past and on arrival she did not appear to be in distress except for joint pains. Temperature was normal, pulse normal, BP was 109/57, O2 saturation 97. She was frail. She was eating dinner in the emergency room. The exam shows polyarticular joint inflammatory changes, probably related to polyarticular gout which has been diagnosed in the past. She had a harsh systolic murmur. Lungs are clear. Abdomen is soft, nontender. The patient was given Rocephin. Currently, Ms. Ivory is awake. She is unable to provide a reliable review of systems. She keeps complaining and pointing to her wrists because they are painful and that seems to be the main concern that she has. PAST MEDICAL HISTORY: Diabetes type 2, dementia, atrial fibrillation, stasis dermatitis, polyarticular gout, hypertension, hyperlipidemia, hyperuricemia which has not yet been controlled, severe aortic stenosis, and coronary artery disease. PAST SURGICAL HISTORY: Appendectomy, cholecystectomy, hysterectomy, toe amputations, stenting of coronary arteries and knee replacement. ALLERGIES: HYDROCODONE. SOCIAL HISTORY: Lives in a senior living [facility], but apparently family is transferring her to [facility]. Never smoker. FAMILY HISTORY: Noncontributory. MEDICATIONS: Here in the hospital she is on Rocephin, p.r.n. medications, MiraLax, Cordarone, Eliquis, Ecotrin, Lipitor, Celebrex, dextrose, Neurontin, glucagon, Haldol, insulin. PHYSICAL EXAMINATION: VITAL SIGNS: T-max 99.9, blood pressure 120/61, pulse 69, respirations 20, and O2 saturation 97. SKIN: Area of shallow abrasion/bruising in the right anterior leg, which is mostly covered by epithelium. There is some stasis changes in the lower extremities quite symmetric distribution. There is a scab at the tip of the right second toe. There are areas of hyperkeratosis around the toe area. Other areas of bruising in the lower extremities. There is some bruising and superficial skin damage in the gluteal region. No lymphadenopathy. HEENT: Ocular movements conjugate. Some temporal wasting. Oral cavity is moist with a few remaining teeth only. NECK: Supple. No jugular vein distention. LUNGS: Symmetric air entry. HEART: S1 and S2 with a harsh systolic murmur at the aortic area. No S3. Regular rate. ABDOMEN: Soft, not distended, tender. No ascites. No bladder distention. EXTREMITIES: Marked joint inflammatory changes with deformities in the hands, MCPs and toes as well. Pulses are 1+ in dorsalis pedis. Plantar responses are flexor. She is awake. She is disoriented, knows her name only, could not tell me any recent history. LABORATORY DATA: White cell count is 8.4 and now is 6.5, hemoglobin 11 and now 9, platelets 277 with 74% neutrophils. Chemistry with a sodium 138, creatinine 0.93, transaminases normal, alkaline phosphatase normal, albumin 3.1, globulin 3.5. Urinalysis is greater than 50 wbc's. Microbiology, urine culture here obtained was negative with less than 10,000 CFUs. We have hand x-rays which showed osteoarthrosis as well as inflammatory arthropathy, probably gouty arthropathy. There is a chest x-ray from findings consistent with CHF. ASSESSMENT: 1. Type 2 diabetes, dementia, atrial fibrillation, polyarticular gout with active inflammatory arthropathy, chronic urinalysis abnormalities with pyuria without evidence of urinary retention. Postvoid residuals are consistently 0 in the hospital evaluation. 2. Perceived behavioral change. DISCUSSION: The differential diagnosis includes the patient's discomfort due to the uncontrolled polyarticular gout as the more likely scenario here she kept pointing to her hands and wrists and they seemed to be quite painful and she seems to be bothered by it. She is not retaining urine and even despite the antimicrobial therapy, no major changes in her behavior, so I do not think that the urinary tract is the culprit here causing the change in the patient's behavior. Pretty soon she will develop complications such as C Diff or resistant pathogen associated invasive urinary problems if the nursing staff and the MDs at the [facility] continue with this habit of blaming every behavioral issues on to UTI. I would focus on managing better the polyarticular gout and this could involve intra-articular corticosteroid injections, colchicine cannot be used unless the Amiodarone is discontinued. May be cardiology would offer a different rhythm/rate control agent, may be a low-dose systemic steroids for a brief period of time plus colchicine, and allopurinol to control hyperuricemia. The dose would have to be adjusted in view of her decreased renal function. In summary, I do not believe the urinary tract findings are responsible for the patient's changes that led to admission. Job ID: [id number] [facility]
[2019-03-11] MEDS: Montelukast Sodium 10 mg Tablet PO SCH (21:05)
[2019-03-11] MEDS: Atorvastatin Calcium 40 MG TAB PO SCH (21:05)
[2019-03-11] MEDS: Acetaminophen 500 MG TAB PO PRN (21:55)
[2019-03-12] MEDS: traMADol HCl 50 MG TAB PO PRN ×4 (00:24→21:54)
[2019-03-12] MEDS: CeleCOXIB 100 MG CAP PO PRN ×2 (04:00→12:38)
[2019-03-12] MEDS: Levothyroxine Sodium 112 MCG TAB PO SCH (06:19)
[2019-03-12] MEDS: Levothyroxine Sodium 25 MCG TAB PO SCH (06:19)
[2019-03-12] MEDS: Sodium Chloride 0.9% 1,000 ML IV SCH ×3 (08:17→17:10)
[2019-03-12] MEDS: Cyanocobalamin (Vitamin B-12) 1,000 MCG TAB PO SCH (08:18)
[2019-03-12] MEDS: Apixaban 5 MG TAB PO SCH ×2 (08:19→20:25)
[2019-03-12] MEDS: Amiodarone 200 MG TAB PO SCH (08:19)
[2019-03-12] MEDS: Isosorbide Dinitrate 20 MG TAB PO SCH ×2 (08:19→20:25)
[2019-03-12] MEDS: Haloperidol 1 MG TAB PO SCH ×3 (08:19→20:25)
[2019-03-12] MEDS: Aspirin 81 mg Enteric Coated Tablet PO SCH (08:19)
[2019-03-12] MEDS: Gabapentin 300 MG CAP PO SCH ×3 (08:19→20:25)
[2019-03-12] MEDS: Polyethylene Glycol 3350 17 GM Packet PO SCH (08:20)
[2019-03-12] MEDS: Metolazone 5 MG TAB PO SCH (08:20)
[2019-03-12] MEDS ORDERED: Torsemide 20 MG TAB PO SCH (10:00)
[2019-03-12] MEDS: Acetaminophen 500 MG TAB PO PRN (10:16)
--- NOTE | 2019-03-12 15:44 | PDOC.PN ---
- Subjective Encounter Start Date: 03/12/19 Encounter Start Time: 15:42 Subjective: feels bad and good on and off.RN report poor sleep last night -: pt still having pain in wrist but"not Now" -: care discussed nasra Cortes over phone(grand daughter) - Objective MAR Reviewed: Yes Vital Signs & Weight: Vital Signs (12 hours) Temp Pulse Resp BP Pulse Ox 03/12/19 11:00 112/66 03/12/19 09:00 98 03/12/19 07:50 98.0 F 74 20 151/74 H 98 Weight Admit Weight 114 lb 10.246 oz Weight 114 lb 10.246 oz I&O: 03/11/19 03/12/19 03/13/19 06:59 06:59 06:59 Intake Total 1350 Balance 1350 Result Diagrams: 03/11/19 06:43 03/11/19 06:43 Additional Labs: Accuchecks 03/12/19 03/12/19 03/11/19 11:38 06:20 19:58 POC Glucose 126 H 125 H 152 H 03/11/19 16:43 POC Glucose 155 H Microbiology 03/08/19 12:03 Urine voided Urine Culture - Final Phys Exam - Physical Examination Constitutional: NAD HEENT: PERRLA, moist MMs, sclera anicteric, oral pharynx no lesions Neck: no nodes, no JVD, supple, full ROM Respiratory: no wheezing, no rales, no rhonchi, wheezing present, clear to auscultation bilateral Cardiovascular: RRR, no significant murmur Gastrointestinal: soft, non-tender, no distention, positive bowel sounds Musculoskeletal: no edema, pulses present severe scoliosis and arthritic deformity of hands Neurological: non-focal, normal sensation, moves all 4 limbs Dx/Plan (1) Altered mental status Code(s): R41.82 - ALTERED MENTAL STATUS, UNSPECIFIED Status: Acute Comment: Now cleared (2) UTI (urinary tract infection) Status: Suspected Comment: discussed with ID.Stop Abx for now (3) C7 cervical fracture Code(s): S12.600A - UNSP DISP FX OF SEVENTH CERVICAL VERTEBRA, INIT FOR CLOS FX Status: Chronic Qualifiers: Encounter type: initial encounter Fracture type: closed Fracture alignment: nondisplaced Comment: in 11/2018 non-operative mgmt and pain control recommended at that time (4) Femur fracture, right Code(s): S72.91XA - UNSP FRACTURE OF RIGHT FEMUR, INIT FOR CLOS FX Status: Chronic Qualifiers: Fracture type: closed Fracture alignment: nondisplaced Comment: in Non-operative mgmt, PT for ambulation with RW, fall risk, likely with home PT (5) Physical deconditioning Code(s): R53.81 - OTHER MALAISE Status: Chronic (6) 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 transplanted heart: [place] heart Associated angina: without angina Qualified Code(s): I25.10 - Atherosclerotic heart disease of [place] coronary artery without angina pectoris Comment: on ASA,statin,BB (9) DM type 2 (diabetes mellitus, type 2) Status: Chronic Qualifiers: Diabetes mellitus continuous churn buttermaker insulin use: with continuous churn buttermaker use Comment: Labile, ISS, serial accuchecks (10) Dyslipidemia Code(s): E78.5 - HYPERLIPIDEMIA, UNSPECIFIED Status: Chronic Comment: on statin (11) GERD (gastroesophageal reflux disease) Code(s): K21.9 - GASTRO-ESOPHAGEAL REFLUX DISEASE WITHOUT ESOPHAGITIS Status: Chronic Qualifiers: Esophagitis presence: esophagitis presence not specified Qualified Code(s) : K21.9 - Gastro-esophageal reflux disease without esophagitis Comment: on PPI (12) Hypertension Code(s): I10 - ESSENTIAL (PRIMARY) HYPERTENSION Status: Chronic Qualifiers: Hypertension type: essential hypertension Qualified Code(s): I10 - Essential (primary) hypertension Comment: controlled (13) Hypothyroidism Code(s): E03.9 - HYPOTHYROIDISM, UNSPECIFIED Status: Chronic Qualifiers: Comment: continue synthroid (14) Paroxysmal atrial fibrillation Code(s): I48.0 - PAROXYSMAL ATRIAL FIBRILLATION Status: Chronic Comment: on Amiodarone and low dose Eliquis and ASA after CVA 11/2018 (15) Severe aortic stenosis by prior echocardiogram Code(s): I35.0 - NONRHEUMATIC AORTIC (VALVE) STENOSIS Status: Chronic Comment: Residential plan for TAVR but too unstable currently (16) Stasis dermatitis of both legs Code(s): I83.11 - VARICOSE VEINS OF RIGHT LOWER EXTREMITY WITH INFLAMMATION; I83.12 - VARICOSE VEINS OF LEFT LOWER EXTREMITY WITH INFLAMMATION Status: Chronic Comment: WCT for local skin care - Plan plan discussed w/ family, DVT proph w/SCDs Gout Vs Arthritis-Acute.add reagan NSAID and prednisone.monitor -: avoid colchicine with amiodarone. -: otherwise Hd stable.schedulede to be Dced to [facility] tomorrow -: am labs -: pt on wrong dosing of zaroxolyn.will stop fornow as euvolemic * .restart demadex but at a lower dose as not in any acute CHF.But hold for now given possibilty of acute gout Review of Systems - Review of Systems Constitutional: weakness, malaise Musculoskeletal: Hand Pain - Medications/Allergies Allergies/Adverse Reactions: Allergies Allergy/AdvReac Type Severity Reaction Status Date / Time hydrocodone [From [place]] Allergy Hives Verified 03/09/19 00:45 Medications: Current Medications Acetaminophen (Tylenol) 1,000 mg PO Q6H PRN PRN Reason: Headache/Fever or Pain MILD Last Admin: 03/12/19 10:16 Dose: 1,000 mg Amiodarone HCl (Cordarone) 200 mg PO DAILY [facility] Last Admin: 03/12/19 08:19 Dose: 200 mg Apixaban (Eliquis) 5 mg PO BID [facility] Last Admin: 03/12/19 08:19 Dose: 5 mg Aspirin (Ecotrin) 81 mg PO DAILY [facility] Last Admin: 03/12/19 08:19 Dose: 81 mg Atorvastatin Calcium (Lipitor) 40 mg PO HS [facility] Last Admin: 03/11/19 21:05 Dose: 40 mg Cyanocobalamin (Vitamin B-12) 5,000 mcg PO DAILY [facility] Last Admin: 03/12/19 08:18 Dose: 5,000 mcg Dextrose/Water (Dextrose 50%) 25 gm SLOW IVP PRN PRN PRN Reason: Hypoglycemia Gabapentin (Neurontin) 600 mg PO TID [facility] Last Admin: 03/12/19 14:52 Dose: 600 mg Glucagon (Glucagon) 1 mg IM PRN PRN PRN Reason: Hypoglycemia Haloperidol (Haldol) 1 mg PO TID [facility] Last Admin: 03/12/19 14:53 Dose: 1 mg Dextrose/Water (D5w) 1,000 mls @ 0 mls/hr IV .Q0M PRN PRN Reason: Hypoglycemia Sodium Chloride (Normal Saline 0.9%) 1,000 mls @ 100 mls/hr IV .Q10H [facility] Last Admin: 03/12/19 10:30 Dose: Not Given Ibuprofen (Motrin) 200 mg PO BID [facility] Insulin Human Lispro (Humalog) 0 units SC .MILD SLIDING SCALE PRN PRN Reason: Mild Correctional Scale Last Admin: 03/11/19 17:35 Dose: 2 units Insulin Human Lispro (Humalog) 0 units SC .BEDTIME SLIDING SC PRN PRN Reason: Bedtime Correctional Scale Last Admin: 03/10/19 21:07 Dose: 2 unit Isosorbide Dinitrate (Isordil) 10 mg PO BID [facility] Last Admin: 03/12/19 08:19 Dose: 10 mg Levothyroxine Sodium (Synthroid) 112 mcg PO 0600 [facility] Last Admin: 03/12/19 06:19 Dose: 112 mcg Levothyroxine Sodium (Synthroid) 25 mcg PO 0600 [facility] Last Admin: 03/12/19 06:19 Dose: 25 mcg Lubiprostone (Amitiza) 24 mcg PO BID-[facility] Melatonin (Melatonin) 3 mg PO HS PRN PRN Reason: Insomnia Montelukast Sodium (Singulair) 10 mg PO HS [facility] Last Admin: 03/11/19 21:05 Dose: 10 mg Nystatin (Mycostatin Powder) 0 gm TOP PRN PRN PRN Reason: TOPICAL IRRITATION Last Admin: 03/09/19 05:02 Dose: 1 appful Ondansetron HCl (Zofran Odt) 4 mg PO Q6H PRN PRN Reason: Nausea/Vomiting Last Admin: 03/08/19 22:04 Dose: 4 mg Ondansetron HCl (Zofran) 4 mg IVP Q6H PRN PRN Reason: Nausea Last Admin: 03/10/19 15:35 Dose: 4 mg Pantoprazole Sodium (Protonix) 40 mg PO DAILY [facility] Last Admin: 03/12/19 08:19 Dose: 40 mg Polyethylene Glycol (Miralax) 17 gm PO DAILY [facility] Last Admin: 03/12/19 08:20 Dose: Not Given Potassium Chloride (Klor-Con) 40 meq PO BID-[facility] Last Admin: 03/12/19 08:00 Dose: Not Given Prednisone (Prednisone) 40 mg PO ONE [facility] Prednisone (Prednisone) 40 mg PO QAM-WM [facility] Sodium Chloride (Flush - Normal Saline) 10 ml IVF Q12HR [facility] Last Admin: 03/12/19 08:21 Dose: Not Given Sodium Chloride (Flush - Normal Saline) 10 ml IVF PRN PRN PRN Reason: Saline Flush Torsemide (Demadex) 20 mg PO BID@0900,1400 [facility] Tramadol HCl (Ultram) 50 mg PO Q6H PRN PRN Reason: Mild Pain (1-3) 2ND LINE Last Admin: 03/12/19 14:53 Dose: 50 mg Trazodone HCl (Desyrel) 50 mg PO HS PRN PRN Reason: Insomnia
[2019-03-12] MEDS: Lubiprostone 24 MCG CAP PO SCH (15:59)
[2019-03-12] MEDS ORDERED: predniSONE 20 MG TAB PO SCH (16:00)
[2019-03-12] MEDS ORDERED: Ibuprofen 200 MG TAB PO SCH (16:00)
[2019-03-12] MEDS: HumaLOG 300 UNITS/3 ML VIAL SC PRN (17:11)
[2019-03-12] MEDS ORDERED: Lorazepam 2 MG/ML VIAL SLOW IVP SCH (17:45)
[2019-03-12] MEDS: Atorvastatin Calcium 40 MG TAB PO SCH (20:25)
[2019-03-12] MEDS: Montelukast Sodium 10 mg Tablet PO SCH (20:25)
[2019-03-12] MEDS: traZODone HCl 50 MG TAB PO PRN (21:54)
[2019-03-13] MEDS: Levothyroxine Sodium 25 MCG TAB PO SCH (05:30)
[2019-03-13] MEDS: Levothyroxine Sodium 112 MCG TAB PO SCH (05:30)
[2019-03-13] MEDS: traMADol HCl 50 MG TAB PO PRN ×3 (06:10→19:32)
[2019-03-13] MEDS: Sodium Chloride 0.9% 1,000 ML IV SCH (06:10)
[2019-03-13] MEDS: HumaLOG 300 UNITS/3 ML VIAL SC PRN ×4 (06:11→19:36)
[2019-03-13] MEDS: Polyethylene Glycol 3350 17 GM Packet PO SCH (08:32)
[2019-03-13] MEDS: Haloperidol 1 MG TAB PO SCH ×3 (08:34→19:32)
[2019-03-13] MEDS: Ibuprofen 200 MG TAB PO SCH ×2 (08:34→19:32)
[2019-03-13] MEDS: Aspirin 81 mg Enteric Coated Tablet PO SCH (08:34)
[2019-03-13] MEDS: Gabapentin 300 MG CAP PO SCH ×3 (08:36→19:33)
[2019-03-13] MEDS: Isosorbide Dinitrate 20 MG TAB PO SCH ×2 (08:36→19:33)
[2019-03-13] MEDS: Cyanocobalamin (Vitamin B-12) 1,000 MCG TAB PO SCH (08:37)
[2019-03-13] MEDS: Lubiprostone 24 MCG CAP PO SCH ×2 (08:37→17:37)
[2019-03-13] MEDS: Apixaban 5 MG TAB PO SCH ×2 (08:37→19:34)
[2019-03-13] MEDS: Amiodarone 200 MG TAB PO SCH (08:38)
[2019-03-13] MEDS: predniSONE 20 MG TAB PO SCH (08:38)
[2019-03-13 10:18] LABS: Anion Gap 12 mmol/L (10-20); BUN (Urea Nitrogen) 15 mg/dL (9.8-20.1); Calc. Creatinine Clearance 47 mL/min (70-130); Calcium 8.7 mg/dL (7.8-10.44); Carbon Dioxide 25 mmol/L (23-31); Chloride 108 mmol/L (98-107); Estimated GFR-MDRD 75; Glucose 175 mg/dL (83-110); Potassium 3.5 mmol/L (3.5-5.1); Sodium 141 mmol/L (136-145)
[2019-03-13 10:21] LABS: Magnesium 0.9 mg/dL (1.6-2.6)
[2019-03-13] MEDS ORDERED: Metolazone 2.5 MG TAB PO SCH (10:45)
[2019-03-13] MEDS ORDERED: Magnesium 2 GM/50 ML 2 GM in Premix Bag 1 BAG IVPB SCH (11:00)
[2019-03-13] MEDS ORDERED: Torsemide 20 MG TAB PO SCH (14:00)
[2019-03-13] MEDS: Lidocaine 5% Patch TD SCH (14:35)
--- NOTE | 2019-03-13 18:58 | PDOC.PN ---
- Subjective Encounter Start Date: 03/13/19 Encounter Start Time: 18:58 Subjective: c/o left shoulder pain today.wants me to give her "that injection that she -: had years ago for pain" - Objective MAR Reviewed: Yes Vital Signs & Weight: Vital Signs (12 hours) Temp Pulse Resp BP Pulse Ox 03/13/19 16:34 98.3 F 90 20 151/74 H 96 03/13/19 12:25 98.3 F 94 20 162/88 H 99 03/13/19 08:00 99 03/13/19 07:57 98.9 F 87 16 146/80 H 99 Weight Admit Weight 114 lb 10.246 oz Weight 142 lb 11 oz I&O: 03/12/19 03/13/19 03/14/19 06:59 06:59 06:59 Intake Total 1720 Balance 1720 Result Diagrams: 03/11/19 06:43 03/13/19 09:45 Additional Labs: Accuchecks 03/13/19 03/13/19 03/13/19 16:40 11:50 04:39 POC Glucose 268 H 186 H 220 H 03/12/19 19:37 POC Glucose 191 H Phys Exam - Physical Examination Constitutional: NAD agitated.sitting in chair clutching shoulder HEENT: PERRLA, moist MMs, sclera anicteric, oral pharynx no lesions Neck: no nodes, no JVD, supple, full ROM Respiratory: no wheezing, no rhonchi, clear to auscultation bilateral few rales Left chest Cardiovascular: RRR, no significant murmur Gastrointestinal: soft, non-tender, no distention, positive bowel sounds Musculoskeletal: no edema, pulses present no erythema/warmth/tenderness to left shoulder Neurological: non-focal, normal sensation, moves all 4 limbs Psychiatric: normal affect, A&O x 3 Dx/Plan (1) Altered mental status Code(s): R41.82 - ALTERED MENTAL STATUS, UNSPECIFIED Status: Acute Comment: Now cleared (2) UTI (urinary tract infection) Status: Ruled-out Comment: discussed with ID.Stop Abx for now (3) C7 cervical fracture Code(s): S12.600A - UNSP DISP FX OF SEVENTH CERVICAL VERTEBRA, INIT FOR CLOS FX Status: Chronic Qualifiers: Encounter type: initial encounter Fracture type: closed Fracture alignment: nondisplaced Comment: in 11/2018 non-operative mgmt and pain control recommended at that time (4) Femur fracture, right Code(s): S72.91XA - UNSP FRACTURE OF RIGHT FEMUR, INIT FOR CLOS FX Status: Chronic Qualifiers: Fracture type: closed Fracture alignment: nondisplaced Comment: in Non-operative mgmt, PT for ambulation with RW, fall risk, likely with home PT (5) Physical deconditioning Code(s): R53.81 - OTHER MALAISE Status: Chronic (6) 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 transplanted heart: [place] heart Associated angina: without angina Qualified Code(s): I25.10 - Atherosclerotic heart disease of [place] coronary artery without angina pectoris Comment: on ASA,statin,BB (9) DM type 2 (diabetes mellitus, type 2) Status: Chronic Qualifiers: Diabetes mellitus joint terminal attack controller insulin use: with fci use Comment: Labile, ISS, serial accuchecks (10) Dyslipidemia Code(s): E78.5 - HYPERLIPIDEMIA, UNSPECIFIED Status: Chronic Comment: on statin (11) GERD (gastroesophageal reflux disease) Code(s): K21.9 - GASTRO-ESOPHAGEAL REFLUX DISEASE WITHOUT ESOPHAGITIS Status: Chronic Qualifiers: Esophagitis presence: esophagitis presence not specified Qualified Code(s) : K21.9 - Gastro-esophageal reflux disease without esophagitis Comment: on PPI (12) Hypertension Code(s): I10 - ESSENTIAL (PRIMARY) HYPERTENSION Status: Chronic Qualifiers: Hypertension type: essential hypertension Qualified Code(s): I10 - Essential (primary) hypertension Comment: controlled (13) Hypothyroidism Code(s): E03.9 - HYPOTHYROIDISM, UNSPECIFIED Status: Chronic Qualifiers: Comment: continue synthroid (14) Paroxysmal atrial fibrillation Code(s): I48.0 - PAROXYSMAL ATRIAL FIBRILLATION Status: Chronic Comment: on Amiodarone and low dose Eliquis and ASA after CVA 11/2018 (15) Severe aortic stenosis by prior echocardiogram Code(s): I35.0 - NONRHEUMATIC AORTIC (VALVE) STENOSIS Status: Chronic Comment: Custodial plan for TAVR but too unstable currently (16) Stasis dermatitis of both legs Code(s): I83.11 - VARICOSE VEINS OF RIGHT LOWER EXTREMITY WITH INFLAMMATION; I83.12 - VARICOSE VEINS OF LEFT LOWER EXTREMITY WITH INFLAMMATION Status: Chronic Comment: WCT for local skin care - Plan PT/OT, DVT proph w/SCDs Diuretics on hold d/t acute gout suspicion.now some fluid on left lung -: will stop IVF . -: cont prednisone.taper for acute gout.no cochicine d/t amiodarone interction -: also on ibuprofen for acute gout.monitor renal Fx closely. -: replace and recheck magnesium.am labs. [place] when more stable * .add lidocaine patch for shoulder pain Review of Systems - Review of Systems Constitutional: weakness, malaise. negative: fever, chills, sweats, other Respiratory: negative: Cough, Dry, Shortness of Breath, Hemoptysis, SOB with Excertion, Pleuritic Pain, Sputum, Wheezing Gastrointestinal: negative: Nausea, Vomiting, Abdominal Pain, Diarrhea, Constipation, Melena, Hematochezia, Other Musculoskeletal: Neck Pain, Shoulder Pain, Hand Pain Neurological: negative: Weakness, Numbness, Incoordination, Change in Speech, Confusion, Seizures, Other - Medications/Allergies Allergies/Adverse Reactions: Allergies Allergy/AdvReac Type Severity Reaction Status Date / Time hydrocodone [From [place]] Allergy Hives Verified 03/09/19 00:45 Medications: Current Medications Acetaminophen (Tylenol) 1,000 mg PO Q6H PRN PRN Reason: Headache/Fever or Pain MILD Last Admin: 03/12/19 10:16 Dose: 1,000 mg Amiodarone HCl (Cordarone) 200 mg PO DAILY [facility] Last Admin: 03/13/19 08:38 Dose: 200 mg Apixaban (Eliquis) 5 mg PO BID [facility] Last Admin: 03/13/19 08:37 Dose: 5 mg Aspirin (Ecotrin) 81 mg PO DAILY [facility] Last Admin: 03/13/19 08:34 Dose: 81 mg Atorvastatin Calcium (Lipitor) 40 mg PO HS [facility] Last Admin: 03/12/19 20:25 Dose: 40 mg Cyanocobalamin (Vitamin B-12) 5,000 mcg PO DAILY [facility] Last Admin: 03/13/19 08:37 Dose: 5,000 mcg Dextrose/Water (Dextrose 50%) 25 gm SLOW IVP PRN PRN PRN Reason: Hypoglycemia Gabapentin (Neurontin) 600 mg PO TID [facility] Last Admin: 03/13/19 14:35 Dose: 600 mg Glucagon (Glucagon) 1 mg IM PRN PRN PRN Reason: Hypoglycemia Haloperidol (Haldol) 1 mg PO TID [facility] Last Admin: 03/13/19 14:35 Dose: 1 mg Dextrose/Water (D5w) 1,000 mls @ 0 mls/hr IV .Q0M PRN PRN Reason: Hypoglycemia Ibuprofen (Motrin) 200 mg PO BID [facility] Last Admin: 03/13/19 08:34 Dose: 200 mg Insulin Human Lispro (Humalog) 0 units SC .MILD SLIDING SCALE PRN PRN Reason: Mild Correctional Scale Last Admin: 03/13/19 17:37 Dose: 4 units Insulin Human Lispro (Humalog) 0 units SC .BEDTIME SLIDING SC PRN PRN Reason: Bedtime Correctional Scale Last Admin: 03/10/19 21:07 Dose: 2 unit Isosorbide Dinitrate (Isordil) 10 mg PO BID [facility] Last Admin: 03/13/19 08:36 Dose: 10 mg Levothyroxine Sodium (Synthroid) 112 mcg PO 0600 [facility] Last Admin: 03/13/19 05:30 Dose: 112 mcg Levothyroxine Sodium (Synthroid) 25 mcg PO 0600 [facility] Last Admin: 03/13/19 05:30 Dose: 25 mcg Lidocaine (Lidoderm 5% Patch) 1 patch TD 1400 [facility] Last Admin: 03/13/19 14:35 Dose: 1 patch Lubiprostone (Amitiza) 24 mcg PO BID[facility] Last Admin: 03/13/19 17:37 Dose: 24 mcg Melatonin (Melatonin) 3 mg PO HS PRN PRN Reason: Insomnia Miscellaneous Medication (Lidocaine Patch Removal) 1 each TOP 0200 [facility] Montelukast Sodium (Singulair) 10 mg PO [facility] Last Admin: 03/12/19 20:25 Dose: 10 mg Nystatin (Mycostatin Powder) 0 gm TOP PRN PRN PRN Reason: TOPICAL IRRITATION Last Admin: 03/09/19 05:02 Dose: 1 appful Ondansetron HCl (Zofran Odt) 4 mg PO Q6H PRN PRN Reason: Nausea/Vomiting Last Admin: 03/08/19 22:04 Dose: 4 mg Ondansetron HCl (Zofran) 4 mg IVP Q6H PRN PRN Reason: Nausea Last Admin: 03/10/19 15:35 Dose: 4 mg Pantoprazole Sodium (Protonix) 40 mg PO DAILY [facility] Last Admin: 03/13/19 08:39 Dose: 40 mg Polyethylene Glycol (Miralax) 17 gm PO DAILY [facility] Last Admin: 03/13/19 08:32 Dose: Not Given Potassium Chloride (Klor-Con) 40 meq PO BID-[facility] Last Admin: 03/13/19 16:43 Dose: Not Given Prednisone (Prednisone) 40 mg PO QAM-[facility] Last Admin: 03/13/19 08:38 Dose: 40 mg Sodium Chloride (Flush - Normal Saline) 10 ml IVF Q12HR [facility] Last Admin: 03/13/19 08:40 Dose: Not Given Sodium Chloride (Flush - Normal Saline) 10 ml IVF PRN PRN PRN Reason: Saline Flush Torsemide (Demadex) 20 mg PO BID@0900,1400 [facility] Tramadol HCl (Ultram) 50 mg PO Q6H PRN PRN Reason: Mild Pain (1-3) 2ND LINE Last Admin: 03/13/19 11:40 Dose: 50 mg Trazodone HCl (Desyrel) 50 mg PO HS PRN PRN Reason: Insomnia Last Admin: 03/12/19 21:54 Dose: 50 mg
[2019-03-13] MEDS: Montelukast Sodium 10 mg Tablet PO SCH (19:32)
[2019-03-13] MEDS: Atorvastatin Calcium 40 MG TAB PO SCH (19:34)
[2019-03-13] MEDS: traZODone HCl 50 MG TAB PO PRN (21:50)
[2019-03-14] MEDS: Lidocaine Patch Removal 1 EACH TOP SCH (01:09)
[2019-03-14] MEDS: traMADol HCl 50 MG TAB PO PRN ×4 (01:09→20:45)
[2019-03-14] MEDS: Levothyroxine Sodium 112 MCG TAB PO SCH (06:02)
[2019-03-14] MEDS: Levothyroxine Sodium 25 MCG TAB PO SCH (06:02)
[2019-03-14] MEDS: HumaLOG 300 UNITS/3 ML VIAL SC PRN ×4 (06:02→20:24)
[2019-03-14] MEDS: Ibuprofen 200 MG TAB PO SCH ×2 (08:16→20:18)
[2019-03-14] MEDS: Haloperidol 1 MG TAB PO SCH ×3 (08:16→20:18)
[2019-03-14] MEDS: Amiodarone 200 MG TAB PO SCH (08:17)
[2019-03-14] MEDS: predniSONE 20 MG TAB PO SCH (08:17)
[2019-03-14] MEDS: Apixaban 5 MG TAB PO SCH ×2 (08:17→20:18)
[2019-03-14] MEDS: Isosorbide Dinitrate 20 MG TAB PO SCH ×2 (08:18→20:18)
[2019-03-14] MEDS: Gabapentin 300 MG CAP PO SCH ×3 (08:18→20:18)
[2019-03-14] MEDS: Aspirin 81 mg Enteric Coated Tablet PO SCH (08:18)
[2019-03-14] MEDS: Lubiprostone 24 MCG CAP PO SCH ×2 (08:18→17:47)
[2019-03-14] MEDS: Cyanocobalamin (Vitamin B-12) 1,000 MCG TAB PO SCH (08:19)
[2019-03-14] MEDS: Polyethylene Glycol 3350 17 GM Packet PO SCH (08:21)
[2019-03-14] MEDS ORDERED: Lidocaine 5% Patch TD SCH (09:00)
[2019-03-14 11:19] LABS: Anion Gap 11 mmol/L (10-20); BUN (Urea Nitrogen) 15 mg/dL (9.8-20.1); Calc. Creatinine Clearance 59 mL/min (70-130); Calcium 9.3 mg/dL (7.8-10.44); Carbon Dioxide 25 mmol/L (23-31); Chloride 107 mmol/L (98-107); Estimated GFR-MDRD 75; Glucose 152 mg/dL (83-110); Magnesium 1.2 mg/dL (1.6-2.6); Potassium 3.3 mmol/L (3.5-5.1); Sodium 140 mmol/L (136-145)
[2019-03-14] MEDS: Acetaminophen 500 MG TAB PO PRN ×3 (12:12→23:32)
--- NOTE | 2019-03-14 13:40 | PQF ---
DATE: 03-14-19 ATTN: DR. CARITO YARBROUGH Please exercise your independent, professional judgment in responding to the clarification form. Clinical indicators are provided on the bottom of this form for your review Please check appropriate box(s): [x ] Acute Renal Failure (ARF) / Acute Kidney Injury (ANUM) [ ] Acute on Chronic Renal Failure please specify Stage of CKD (see below) [ ] CKD without ARF/ANUM please specify Stage of CKD [ ] Other diagnosis [ ] Unable to determine In addition, please specify: Present on Admission (POA): [ x ] Yes [ ] No [ ] Unable to determine National Kidney Foundation Guidelines for CKD Staging Stage I Kidney damage with normal or increased GFR GFR > 90 Stage II Kidney damage with mildly decreased GFR GFR 60-89 Stage III Kidney damage with moderately decreased GFR GFR 30-59 Stage IV Kidney damage with severely decreased GFR GFR 16-29 Stage V Kidney failure GFR<15 ESRD End Stage Renal Disease On dialysis Acute Renal Failure/Acute Kidney Failure defined as: Increases in SCr by (>) 0.3 mg/dl within 48 hours OR- Increases in SCr by (>) 1.5 times baseline, known or presumed to have occurred within the prior 7 days OR- Urine volume < 0.5 ml/kg/hour for 6 hours (KDIGO supplement 2012 for RIFLE/THANIA criteria) For continuity of documentation, please document condition throughout progress notes and discharge summary. Thank You. CLINICAL INDICATORS - SIGNS / SYMPTOMS / LABS ER: AMS, PER [facility] PT HAS BEEN DX WITH UTI AND IS CURRENTLY ON TWO DAYS OF CIPRO, HX OF RENAL DISEASE ER DX: DEHYDRATION, AGITATION, AMS, GENERALIZED WEAKNESS, UTI H&P: HX OF CKD H&P: ACUTE ON CHRONIC RENAL INSUFFICIENCY GFR: 03-08-19: 27 03-09-19: 39 03-10-19: 57 03-14-19: 75 CREATININE: 03-08-19: 1.77 7-18-19: 1.29 03-14-19: 0.74 BUN: 03-08-19: 62 03-09-19: 51 03-10-19: 37 03-11-19: 32 03-14-19: 15 RISK FACTORS: ER DX: ER DX: DEHYDRATION, AGITATION, AMS, GENERALIZED WEAKNESS, UTI TREATMENTS: ER: NS IVF (This form is maintained as a part of the permanent medical record) 2014 [employer] All Rights Reserved [email or web address] [email or web address] Office: [phone] [place]
--- NOTE | 2019-03-14 13:55 | PQF ---
DATE: 03-14-19 ATTN: DR. CARITO YARBROUGH Please exercise your independent, professional judgment in responding to the clarification form. Clinical indicators are provided on the bottom of this form for your review Please check appropriate box(s): [ ] Encephalopathy: Type: [ ] Acute [ ] Subacute [ ] Chronic Etiology: [ ] Metabolic [ ] Toxic [ ] Other (please specify) [x ] Transient Alteration of Awareness [ ] Other diagnosis [ ] Unable to determine In addition, please specify: Present on Admission (POA): [ x] Yes [ ] No [ ] Unable to determine For continuity of documentation, please document condition throughout progress notes and discharge summary. Thank You. CLINICAL INDICATORS - SIGNS / SYMPTOMS / LABS: ER DX: DEHYDRATION, AGITATION, AMS, GENERALIZED WEAKNESS, UTI H&P: AMS, AMS SECONDARY TO UTI CONSULT NOTE DR. GARCIA 03-13-19: HX DEMENTIA, PERCEIVED BEHAVIORAL CHANGE PN DR. JAIMES 03-13-19: AMS NOW CLEARED RISK FACTORS: H&P: AMS, AMS SECONDARY TO UTI TREATMENTS: ER: [id number] IV, IVF (This form is maintained as a part of the permanent medical record) 2014 [employer] All Rights Reserved [email or web address] [email or web address] Office: [phone] [facility]
[2019-03-14] MEDS: Lidocaine 5% Patch TD SCH (14:46)
--- NOTE | 2019-03-14 17:24 | PDOC.HOSPP ---
- Subjective Subjective: pt complains of pain to her joints - Objective Vital Signs & Weight: Vital Signs (12 hours) Temp Pulse Resp BP Pulse Ox 03/14/19 08:00 95 03/14/19 07:53 97.8 F 89 18 151/78 H 95 Weight Admit Weight 114 lb 10.246 oz Weight 142 lb 11 oz I&O: 03/13/19 03/14/19 03/15/19 06:59 06:59 06:59 Intake Total 1720 360 Balance 1720 360 Result Diagrams: 03/11/19 06:43 03/14/19 10:39 Additional Labs: Accuchecks 03/14/19 03/14/19 03/14/19 16:53 12:02 04:55 POC Glucose 322 H 172 H 223 H 03/13/19 19:33 POC Glucose 210 H ROS - Review of Systems All systems: All other ROS were reviewed and found negative. Respiratory: reports: cough, dry, shortness of breath, hemoptysis, SOB with excertion, pleuritic pain, sputum, wheezing, other Cardiovascular: reports: chest pain, palpitations, orthopnea, paroxysmal noc. dyspnea, edema, light headedness, other Musculoskeletal: reports: hand pain - Medication Medications: Active Medications Generic Name Dose Route Start Last Admin Trade Name Freq PRN Reason Stop Dose Admin Acetaminophen 1,000 mg 03/08/19 20:55 03/14/19 12:12 Tylenol PO 1,000 mg Q6H PRN Administration Headache/Fever or Pain MILD Amiodarone HCl 200 mg 03/09/19 09:00 03/14/19 08:17 Cordarone PO 200 mg DAILY KASSANDRA Administration Apixaban 5 mg 03/08/19 21:00 03/14/19 08:17 Eliquis PO 5 mg BID KASSANDRA Administration Aspirin 81 mg 03/09/19 09:00 03/14/19 08:18 Ecotrin PO 81 mg DAILY KASSANDRA Administration Atorvastatin Calcium 40 mg 03/08/19 21:00 03/13/19 19:34 Lipitor PO 40 mg HS KASSANDRA Administration Cyanocobalamin 5,000 mcg 03/09/19 09:00 03/14/19 08:19 Vitamin B-12 PO 5,000 mcg DAILY KASSANDRA Administration Gabapentin 600 mg 03/08/19 21:00 03/14/19 14:45 Neurontin PO 600 mg TID KASSANDRA Administration Haloperidol 1 mg 03/09/19 15:00 03/14/19 14:45 Haldol PO 1 mg TID KASSANDRA Administration Ibuprofen 200 mg 03/13/19 09:00 03/14/19 08:16 Motrin PO 200 mg BID KASSANDRA Administration Insulin Human Lispro 0 units 03/09/19 00:43 03/14/19 12:13 Humalog SC 2 units .MILD SLIDING SCALE PRN Administration Mild Correctional Scale Insulin Human Lispro 0 units 03/09/19 00:43 03/13/19 19:36 Humalog SC 2 unit .BEDTIME SLIDING SC PRN Administration Bedtime Correctional Scale Isosorbide Dinitrate 10 mg 03/08/19 21:00 03/14/19 08:18 Isordil PO 10 mg BID KASSANDRA Administration Levothyroxine Sodium 112 mcg 03/09/19 06:00 03/14/19 06:02 Synthroid PO 112 mcg 0600 KASSANDRA Administration Levothyroxine Sodium 25 mcg 03/09/19 06:00 03/14/19 06:02 Synthroid PO 25 mcg 0600 KASSANDRA Administration Lidocaine 1 patch 03/13/19 14:00 03/14/19 14:46 Lidoderm 5% Patch TD 1 patch 1400 KASSANDRA Administration Lubiprostone 24 mcg 03/12/19 17:00 03/14/19 08:18 Amitiza PO 24 mcg BID-WM KASSANDRA Administration Miscellaneous Medication 1 each 03/14/19 02:00 03/14/19 01:09 Lidocaine Patch Removal TOP 1 each 0200 KASSANDRA Administration Montelukast Sodium 10 mg 03/08/19 21:00 03/13/19 19:32 Singulair PO 10 mg HS KASSANDRA Administration Nystatin 0 gm 03/08/19 23:21 03/09/19 05:02 Mycostatin Powder TOP 1 appful PRN PRN Administration TOPICAL IRRITATION Ondansetron HCl 4 mg 03/08/19 21:25 03/08/19 22:04 Zofran Odt PO 4 mg Q6H PRN Administration Nausea/Vomiting Ondansetron HCl 4 mg 03/10/19 14:56 03/10/19 15:35 Zofran IVP 4 mg Q6H PRN Administration Nausea Pantoprazole Sodium 40 mg 03/10/19 09:00 03/14/19 08:19 Protonix PO 40 mg DAILY KASSANDRA Administration Polyethylene Glycol 17 gm 03/09/19 09:00 03/14/19 08:21 Miralax PO Not Given DAILY KASSANDRA Potassium Chloride 40 meq 03/09/19 17:00 03/14/19 08:21 Klor-Con PO Not Given BID-WM KASSANDRA Prednisone 40 mg 03/13/19 08:00 03/14/19 08:17 Prednisone PO 40 mg QAM-WM KASSANDRA Administration Sodium Chloride 10 ml 03/09/19 09:00 03/14/19 08:20 Flush - Normal Saline IVF 10 ml Q12HR KASSANDRA Administration Tramadol HCl 50 mg 03/08/19 20:55 03/14/19 14:45 Ultram PO 50 mg Q6H PRN Administration Mild Pain (1-3) 2ND LINE Trazodone HCl 50 mg 03/12/19 15:40 03/13/19 21:50 Desyrel PO 50 mg HS PRN Administration Insomnia - Exam Neck: supple, symmetric, no JVD, no Thyromegaly, no lymphadenopathy, no carotid bruit, JVD Heart: RRR, no murmur, no gallops, no rubs, normal peripheral pulses, irregular , diminshed peripheral pulses, murmur present, II/IV, III/IV Respiratory: CTAB, no wheezes, no rales, no ronchi, normal chest expansion, no tachypnea (significant joint deformity noted in both hands), normal percussion, rales, rhonchi, tachypneic, wheezes Hosp A/P (1) Altered mental status Code(s): R41.82 - ALTERED MENTAL STATUS, UNSPECIFIED Status: Acute (2) ANUM (acute kidney injury) Code(s): N17.9 - ACUTE KIDNEY FAILURE, UNSPECIFIED Status: Acute (3) C7 cervical fracture Code(s): S12.600A - UNSP DISP FX OF SEVENTH CERVICAL VERTEBRA, INIT FOR CLOS FX Status: Chronic Qualifiers: Encounter type: initial encounter Fracture type: closed Fracture alignment: nondisplaced (4) UTI (urinary tract infection) Status: Ruled-out - Plan will continue steroids, she will need allopurinol. No abx per ID recommendation. will replace magnesium and potassium. she is on ibuprofen also.
[2019-03-14] MEDS ORDERED: Magnesium 2 GM/50 ML 2 GM in Premix Bag 1 BAG IVPB SCH (17:45)
[2019-03-14] MEDS: Atorvastatin Calcium 40 MG TAB PO SCH (20:18)
[2019-03-14] MEDS: Montelukast Sodium 10 mg Tablet PO SCH (20:19)
[2019-03-14] MEDS: Nystatin Powder 15 GM BOT TOP PRN (20:24)
[2019-03-14] MEDS: traZODone HCl 50 MG TAB PO PRN (23:31)
[2019-03-15] MEDS: Lidocaine Patch Removal 1 EACH TOP SCH (02:52)
[2019-03-15] MEDS: traMADol HCl 50 MG TAB PO PRN ×2 (02:52→09:14)
[2019-03-15] MEDS: Levothyroxine Sodium 25 MCG TAB PO SCH (05:58)
[2019-03-15] MEDS: Levothyroxine Sodium 112 MCG TAB PO SCH (05:58)
[2019-03-15] MEDS: Acetaminophen 500 MG TAB PO PRN (06:01)
[2019-03-15] MEDS: Amiodarone 200 MG TAB PO SCH (08:59)
[2019-03-15] MEDS: Apixaban 5 MG TAB PO SCH (09:00)
[2019-03-15] MEDS: Haloperidol 1 MG TAB PO SCH (09:00)
[2019-03-15] MEDS: Isosorbide Dinitrate 20 MG TAB PO SCH (09:03)
[2019-03-15] MEDS: Aspirin 81 mg Enteric Coated Tablet PO SCH (09:05)
[2019-03-15] MEDS: predniSONE 20 MG TAB PO SCH (09:06)
[2019-03-15] MEDS: Polyethylene Glycol 3350 17 GM Packet PO SCH (09:06)
[2019-03-15] MEDS: Gabapentin 300 MG CAP PO SCH (09:08)
[2019-03-15] MEDS: Ibuprofen 200 MG TAB PO SCH (09:09)
[2019-03-15 09:24] LABS: Anion Gap 11 mmol/L (10-20); BUN (Urea Nitrogen) 17 mg/dL (9.8-20.1); Calc. Creatinine Clearance 55 mL/min (70-130); Calcium 9.3 mg/dL (7.8-10.44); Carbon Dioxide 26 mmol/L (23-31); Chloride 104 mmol/L (98-107); Estimated GFR-MDRD 70; Glucose 168 mg/dL (83-110); Magnesium 1.6 mg/dL (1.6-2.6); Potassium 3.4 mmol/L (3.5-5.1); Sodium 138 mmol/L (136-145)
[2019-03-15] MEDS: Lubiprostone 24 MCG CAP PO SCH (11:08)
[2019-03-15] MEDS: Cyanocobalamin (Vitamin B-12) 1,000 MCG TAB PO SCH (11:10)
[2019-03-15 11:55] VITALS: BP 154/86; TEMP 97.6
== END 2019-03-15 12:22 | DRG 682 ==
LOC: ERS 11:30 → T4-A 17:51
PROVIDERS: ADMIT Internal Medicine; ATTEND Internal Medicine
DX: N17.9 Acute kidney failure, unspecified (principal); S72.91XA Unspecified fracture of right femur, initial encounter for closed fracture; S12.600A Unspecified displaced fracture of seventh cervical vertebra, initial encounter for closed fracture; I13.0 Hypertensive heart and chronic kidney disease with heart failure and stage 1 through stage 4 chronic kidney disease, or unspecified chronic kidney disease; I50.32 Chronic diastolic (congestive) heart failure; R40.4 Transient alteration of awareness; I48.0 Paroxysmal atrial fibrillation; I73.9 Peripheral vascular disease, unspecified; G89.29 Other chronic pain; M54.5 Low back pain; M10.9 Gout, unspecified; E78.5 Hyperlipidemia, unspecified; I25.10 Atherosclerotic heart disease of native coronary artery without angina pectoris; I35.0 Nonrheumatic aortic (valve) stenosis; E87.6 Hypokalemia; E11.22 Type 2 diabetes mellitus with diabetic chronic kidney disease; N18.3 Chronic kidney disease, stage 3 (moderate); I87.2 Venous insufficiency (chronic) (peripheral); R53.81 Other malaise; H53.9 Unspecified visual disturbance; K21.9 Gastro-esophageal reflux disease without esophagitis; E03.9 Hypothyroidism, unspecified; F03.90 Unspecified dementia, unspecified severity, without behavioral disturbance, psychotic disturbance, mood disturbance, and anxiety; Z96.659 Presence of unspecified artificial knee joint; Z90.49 Acquired absence of other specified parts of digestive tract; Z90.710 Acquired absence of both cervix and uterus; Z95.5 Presence of coronary angioplasty implant and graft; Z89.422 Acquired absence of other left toe(s); Z88.8 Allergy status to other drugs, medicaments and biological substances; Z79.82 Long term (current) use of aspirin; Z79.4 Long term (current) use of insulin; Z79.01 Long term (current) use of anticoagulants; I69.398 Other sequelae of cerebral infarction; X58.XXXA Exposure to other specified factors, initial encounter
CPT/HCPCS: 36415; 36416; 70450; 72040; 80048; 80053; 81003; 81015; 83735; 84550; 85025; 87086; 96361; 96374; J0696; J2060; J2405; J3475; J3480; J3490; J7050; J7512; Q0162

== ENCOUNTER 2019-04-20 10:07 | Inpatient (IN) | payer MEDICARE, BC ==
[2019-04-20] MEDS ORDERED: Nitroglycerin 0.4 MG TAB 1 EACH ONE (10:32)
--- NOTE | 2019-04-20 10:52 | RAD ---
XR Chest 1 View Portable HISTORY: Chest pain COMPARISON: 11/26/2018 FINDINGS: The heart size is prominent but stable. The aorta is tortuous. No lobar consolidation, pneu mothoraces, [place] pulmonary edema or large effusions are seen. There are old left-sided rib fractures. IMPRESSION: No radiographic evidence of acute cardiopulmonary process.
--- NOTE | 2019-04-20 11:00 | CT ---
CT BRAIN WITHOUT CONTRAST: HISTORY:Headache, CVA with mild expressive aphasia COMPARISON:03/08/2019 FINDINGS: There are foci of decreased attenuation in the periventricular white matter, consistent with chronic small vessel ischemic disease. Encephalomalacia likely due to old infarction in the left temporo-occipital lobe is again seen. No evidence of acute infarct, hemorrhage, midline shift or abnormal extra-axial fluid collections is seen. The ventricular size is appropriate and the basilar cisterns are patent. The bony calvarium is intact. The visualized paranasal sinuses and mastoid air cells are well aerated. IMPRESSION: No CT evidence of acute intracranial process.
[2019-04-20 11:18] LABS: #Lymphocytes 1.5 thou/uL (1.20-3.40); #Monocytes 0.7 thou/uL (0.11-0.59); #Neutrophils 4.3 thou/uL (1.40-6.50); %Basophils 0.4 % (0.0-1.0); %Eosinophils 0.4 % (0.0-10.0); %Lymphocytes 22.8 % (21.0-51.0); %Monocytes 10.1 % (0.0-10.0); %Neutrophils 66.4 % (42.0-75.0); Mean Corpuscular HGB CONC 32.3 g/dL (32.0-36.0); Mean Corpuscular Volume 80.5 fL (78.0-98.0); Mean Platelet Volume 7.1 fL (7.4-10.4); Platelet Count 307 thou/uL (130-400); RBC Distribution Width 17.1 % (11.5-14.5); Red Blood Cell (RBC) Count 4.24 mill/uL (4.20-5.40); White Blood Cell (WBC) Count 6.5 thou/uL (4.8-10.8)
[2019-04-20 11:58] LABS: ALT (SGPT) Less than 7 U/L (8-55); AST (SGOT) 19 U/L (5-34); Albumin 3.2 g/dL (3.4-4.8); Alkaline Phosphatase 135 U/L (40-150); Anion Gap 17 mmol/L (10-20); BUN (Urea Nitrogen) 54 mg/dL (9.8-20.1); Bilirubin, Total 0.6 mg/dL (0.2-1.2); Calc. Creatinine Clearance 0 mL/min (70-130); Calcium 9.3 mg/dL (7.8-10.44); Carbon Dioxide 29 mmol/L (23-31); Chloride 92 mmol/L (98-107); Estimated GFR-MDRD 28; Globulin 2.5 g/dL (2.4-3.5); Glucose 111 mg/dL (83-110); Lipase 8 U/L (8-78); Protein, Total 5.7 g/dL (6.0-8.3); Sodium 135 mmol/L (136-145)
[2019-04-20 12:04] LABS: Potassium 2.8 mmol/L (3.5-5.1)
[2019-04-20 12:23] LABS: Bilirubin Negative (Negative); Blood, Urine Negative (Negative); Clarity Clear (Clear); Glucose, Urine (Dipstick) Normal (Negative); Leukocyte Negative Leu/uL (Negative); Nitrite Negative (Negative); Protein, Urine (Dipstick) Negative (Neg-Trace); Urobilinogen Normal mg/dL (Less than 2)
[2019-04-20] MEDS ORDERED: Magnesium 2 GM/50 ML BAG (IN WATER) ONE (12:36)
[2019-04-20] MEDS ORDERED: Potassium Chloride 20 MEQ/100 ML PREMIX BAG ONE (12:36)
[2019-04-20 16:41] VITALS: BMI 20.5
[2019-04-20] MEDS: traMADol HCl 50 MG TAB PO PRN ×2 (17:41→22:10)
[2019-04-20 17:59] LABS: Potassium 3.3 mmol/L (3.5-5.1)
[2019-04-20] MEDS ORDERED: Acetaminophen 650 MG Suppository PR PRN (18:11)
[2019-04-20] MEDS ORDERED: Acetaminophen 325 MG TAB PO PRN (18:11)
[2019-04-20] MEDS ORDERED: Dextrose 5% in Water 1,000 ML IV PRN (18:42)
[2019-04-20] MEDS ORDERED: HumaLOG 300 UNITS/3 ML VIAL SC PRN ×4 (18:42→18:49)
[2019-04-20] MEDS ORDERED: Dextrose 50% Abboject 50 ML SYRINGE SLOW IVP PRN (18:42)
--- NOTE | 2019-04-20 20:21 | HP ---
PRIMARY CARE PHYSICIAN: Dr. Paolo Meyers. CHIEF COMPLAINT: Chest pain with shortness of breath. HISTORY OF PRESENT ILLNESS: Ms. Ivory is an 83-year-old woman, brought in by EMS from the retirement with complaints of chest pain and shortness of breath. Apparently, per ED note, she had a headache that had resolved upon arrival. She complained of diffuse pain. Per the EMS report, she had stated she was feeling short of breath and experiencing heavy chest pain. At this present moment, she states she has pain in her back and in her left arm. The floor nurse states the patient's left arm was cramping and therefore discomfort may have been associated with electrolyte disturbances noted in the ER. She had laboratory studies done, which initially showed a low potassium of 2.8 and magnesium of 1.4. She received 2 g of magnesium sulfate IV and 40 mEq of potassium chloride IV. The remainder of laboratory study showed a white blood count of 6.5, hemoglobin of 11, which appears better from most recent blood test. LFTs unremarkable and albumin 3.2. The patient states she has had a reduced appetite in the last 2 days and reports one episode of vomiting. Denies any abdominal pain or cramping. No loose stools. She states she does have chronic pain associated with her arthritis, and usually it is managed with tramadol. The patient does not have recollection of the chest pain reported by EMS per the ED notes. She seems fixated on her chronic back pain and the left arm pain. She is known to have dementia. In the emergency department, she underwent imaging studies including a chest x-ray, which showed no evidence of acute cardiopulmonary process. A CT of the brain was done due to the headache and showed no evidence of acute intracranial process. Urinalysis has also been completed and unremarkable. She had an EKG done, showing normal sinus rhythm with first-degree AV block. ST segments and T-waves were unremarkable. The patient apparently had similar EKG in the past. She was given nitroglycerin for her chest pain. The patient denies any further chest pain. When asked several times about it, again remains fixated on her chronic back pain. She does have significant kyphosis. She is known to have a history of severe aortic stenosis and last underwent an echo in October 2018, at which time she had an EF of 55% to 60%. Noted to have severe mitral annular calcification, severe aortic stenosis, severely thickened trileaflet aortic valve with decreased excursion. Mild tricuspid regurgitation. Her primary automatic serging machine operator is Dr. Lynch. She was seen by him at that time, at which point, she had been recommended transcutaneous aortic valve replacement once recovering from a stroke she sustained in November 2018. She was started on a reduced dose of apixaban, and aspirin was decreased to 81 mg. The patient has remained on anticoagulation and appears to be compliant with all medications. PAST MEDICAL HISTORY: 1. Type 2 diabetes mellitus. 2. Paroxysmal atrial fibrillation. 3. Chronic venous stasis dermatitis and peripheral vascular disease. 4. Chronic back pain and underlying kyphosis. 5. Gout. 6. Hypertension. 7. Hyperlipidemia. 8. CKD. 9. Severe aortic stenosis. 10. Coronary artery disease. 11. History of CVA in November 2018. PAST SURGICAL HISTORY: 1. Cholecystectomy. 2. Appendectomy. 3. Hysterectomy. 4. 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 5. Coronary artery stents. 6. previous knee replacement. 7. Bilateral cataract surgery. SOCIAL HISTORY: The patient states she was able to mobilize with assistance, but recently has not been able to do due to her back pain. Denies having any history of tobacco use. No alcohol consumption or illicit drug use. She currently lives in the [place]. ALLERGIES: HYDROCODONE CAUSES ITCHING. CURRENT MEDICATIONS: 1. Amiodarone. 2. Amoxicillin. 3. Aspirin. 4. Vitamin D3. 5. Gabapentin. 6. Insulin. 7. Isosorbide dinitrate. 8. Synthroid. 9. Amitiza. 10. Singulair. 11. Multivitamin. 12. Nitrostat. 13. Zofran. 14. Protonix. 15. Phenylephrine. 16. Polyethylene glycol. 17. Potassium chloride. 18. Tramadol. 19. Extra-strength Tylenol. 20. Eliquis 5 mg p.o. twice daily. 21. . 22. Humalog. 23. Lidocaine patch 5%. 24. Melatonin. 25. Metolazone. 26. Torsemide. PHYSICAL EXAMINATION: GENERAL: The patient appears thin, frail, in no acute distress. VITAL SIGNS: Temperature 97.4, pulse of 56, respirations 16, O2 saturation 98% on room air, blood pressure 138/98. HEENT: Normocephalic and atraumatic. Pupils are equal, round, reactive to light. Extraocular movements are intact. Oropharynx is clear. Dry oral mucosa. No lesions. NECK: Supple without lymphadenopathy. LUNGS: Clear to auscultation. CARDIAC: Audible murmur. ABDOMEN: Soft, nontender, nondistended. Normoactive bowel sounds present. EXTREMITIES: No lower leg edema. She does have wounds associated with peripheral vascular disease with dressings in place. NEUROLOGIC: Alert to person and place. SKIN: No rash or jaundice. INVESTIGATIONS: As mentioned above in HPI. IMPRESSION AND PLAN: Ms. Ivory is an 83-year-old woman, who is being referred for management of the following. 1. Chest pain/shortness of breath. The patient appears to have had some resolution of these symptoms. When asked about the pain, she states she has pain everywhere, but is especially fixated with pain in her back and her left arm. EKG shows no ST changes or T-wave abnormalities. Troponins are negative x3. She denies any chest pain at present. Chest x-ray was unremarkable for any acute changes. She is known to Dr. Lynch. We will check BNP. No indication for consultation at this time. 2. Reported expressive aphasia. The patient has residual symptoms from previous stroke. CT brain was done in the emergency department and negative. Her speech seems normal and she appears to be at baseline. We will continue to monitor. We will obtain an MRI of the brain to assess for any new stroke. No neuro deficits on exam apart from residual deficits from previous cerebrovascular accident with left-sided weakness. 3. Electrolyte disturbances. The patient with significantly reduced potassium of 2.8 and magnesium 1.4. Both have been replaced. We will recheck electrolytes and replace as necessary. 4. Diabetes mellitus. We will resume home medications and monitor glucose. We will initiate insulin sliding scale. 5. Hypertension. We will resume home medications and monitor blood pressure. 6. Coronary artery disease. We will resume home medications. 7. Paroxysmal atrial fibrillation. We will resume Eliquis. 8. Gastrointestinal prophylaxis. 9. Chronic back pain. We will resume home pain medications. 10. Hypothyroidism. We will resume home medications. 11. Deep venous thrombosis prophylaxis. ANA hose stockings only. No mechanical SCDs, given peripheral vascular disease. The patient already on anticoagulation. 12. Code status, full. Her surrogate decision maker is her granddaughter, Marley Ivory. The patient's case was discussed with Dr. Mejía, who agrees with the plan of care as described above. Job ID: [id number]
[2019-04-20] MEDS ORDERED: Melatonin 3 MG TAB PO PRN (22:46)
[2019-04-21] MEDS: traMADol HCl 50 MG TAB PO PRN ×4 (04:38→22:31)
[2019-04-21 05:08] LABS: #Lymphocytes 1.6 thou/uL (1.20-3.40); #Monocytes 0.6 thou/uL (0.11-0.59); #Neutrophils 3.7 thou/uL (1.40-6.50); %Basophils 0.1 % (0.0-1.0); %Eosinophils 0.8 % (0.0-10.0); %Lymphocytes 27.3 % (21.0-51.0); %Monocytes 10.4 % (0.0-10.0); %Neutrophils 61.4 % (42.0-75.0); Hemoglobin 10.6 g/dL (12.0-16.0); Mean Corpuscular HGB CONC 32.4 g/dL (32.0-36.0); Mean Corpuscular Hemoglobin 26.4 pg (27.0-31.0); Mean Corpuscular Volume 81.5 fL (78.0-98.0); Mean Platelet Volume 7.3 fL (7.4-10.4); Platelet Count 277 thou/uL (130-400); RBC Distribution Width 17.4 % (11.5-14.5); Red Blood Cell (RBC) Count 4.03 mill/uL (4.20-5.40)
[2019-04-21 05:24] LABS: Anion Gap 13 mmol/L (10-20); BUN (Urea Nitrogen) 45 mg/dL (9.8-20.1); Calc. Creatinine Clearance 29 mL/min (70-130); Calcium 9.2 mg/dL (7.8-10.44); Carbon Dioxide 27 mmol/L (23-31); Chloride 98 mmol/L (98-107); Estimated GFR-MDRD 42; Glucose 97 mg/dL (83-110); Potassium 3.1 mmol/L (3.5-5.1); Sodium 135 mmol/L (136-145)
[2019-04-21] MEDS: Famotidine/PF 20 mg/2ml Vial SLOW IVP SCH (08:43)
[2019-04-21] MEDS ORDERED: Lidocaine 5% Patch TD SCH ×2 (09:00→14:00)
[2019-04-21] MEDS ORDERED: Nitroglycerin 0.4 MG TAB (25 Tab Bottle) SL PRN (11:04)
[2019-04-21] MEDS ORDERED: traMADol HCl 50 MG TAB PO PRN (11:04)
[2019-04-21] MEDS ORDERED: Polyethylene Glycol 3350 17 GM Packet PO PRN (11:04)
[2019-04-21] MEDS ORDERED: Ondansetron ODT 4 MG TAB PO PRN (11:04)
[2019-04-21] MEDS ORDERED: Magnesium Oxide 400 MG TAB PO SCH ×2 (11:20→11:30)
[2019-04-21] MEDS ORDERED: HumaLOG 300 UNITS/3 ML VIAL SC PRN ×2 (11:21)
[2019-04-21] MEDS ORDERED: Potassium Chloride 20 MEQ TAB PO SCH ×4 (11:30→21:00)
[2019-04-21] MEDS ORDERED: Lidocaine Patch Removal 1 EACH TOP SCH ×2 (11:30→21:00)
[2019-04-21] MEDS ORDERED: Dextrose 5% in Water 1,000 ML IV PRN (11:42)
[2019-04-21] MEDS ORDERED: Dextrose 50% Abboject 50 ML SYRINGE IVP PRN (11:42)
[2019-04-21 13:05] LABS: Magnesium 1.8 mg/dL (1.6-2.6)
--- NOTE | 2019-04-21 13:30 | PRG ---
DATE OF SERVICE: 04/21/2019 SUBJECTIVE: The patient is seen and examined at bedside. She feels somewhat better. Her shortness of breath improved and she does not have much complaints of her chest pain anymore. OBJECTIVE: VITAL SIGNS: Blood pressure is 145/68, pulse is 74, temperature is 97.9, respirations 18, and O2 saturation is 97% on room air. HEENT: Head is atraumatic and normocephalic. Her skin is bruised all over. She has multiple ecchymotic areas. Pupils responding to light properly. Sclerae are nonicteric. Conjunctivae palish. Oral mucosa is moist. NECK: Supple. LUNGS: Breath sounds diminished at both bases with bilateral crackles at both bases. HEART: S1 and S2, somewhat distant. No S3. No S4. There is a systolic murmur I heard all over precordium at 3/6. ABDOMEN: Soft. Mildly tender in the epigastric area on the right side. No guarding. No masses. EXTREMITIES: 1+ peripheral edema similar bilaterally. NEUROLOGIC: She follows my commands. She moves all 4 extremities. There is no any motor deficits. She has a tophi on her index finger and middle finger of the left hand. She has very bad arthritic changes in interphalangeal joints, both hands, all fingers. LABORATORY DATA: Labs showed a white count of 6.0, hemoglobin 10.6, hematocrit 32.8, platelet count is 277,000. Sodium of 135, potassium 3.1, chloride 98, BUN of 45, creatinine 1.22, glucose 97, calcium 9.2. BNP was 525.6. IMPRESSION: 1. Shortness of breath. I suspect that this is a congestive heart failure with elevated BNP. We will obtain echocardiogram today. We will start her on small dose of torsemide. She was on twice a day dosing at home, which was most likely too much because her kidney function is affected. 2. Renal insufficiency. 3. Type 2 diabetes mellitus. 4. Paroxysmal atrial fibrillation. 5. Tophaceous gout. 6. Hypertension. 7. Hyperlipidemia. 8. Severe aortic stenosis. 9. Coronary artery disease. 10. History of cerebrovascular accident in November 2018. 11. Severe osteoarthritis. PLAN: Plan is to replace her potassium today and magnesium since her levels are low with oral supplements. We will get echocardiogram. We will start her on lower dose of torsemide 20 mg once a day. We will obtain her labs tomorrow morning. We will check her sed rate and uric acid, and we will try to continue her home medications, we will reconcile them, and we will continue Accu-Cheks and a.c. and bedtime sliding scale. Job ID: [id number]
[2019-04-21] MEDS: Gabapentin 300 MG CAP PO SCH ×2 (14:35→20:56)
[2019-04-21] MEDS: AMOXicillin 250 MG CAP PO SCH ×2 (14:37→22:32)
[2019-04-21] MEDS ORDERED: Lubiprostone 24 MCG CAP PO SCH (17:00)
[2019-04-21] MEDS: Isosorbide Dinitrate 5 MG TAB PO SCH (20:55)
[2019-04-21] MEDS: Magnesium Oxide 400 MG TAB PO SCH (20:56)
[2019-04-21] MEDS: Apixaban 5 MG TAB PO SCH (20:56)
[2019-04-21] MEDS: Atorvastatin Calcium 40 MG TAB PO SCH (20:56)
[2019-04-21] MEDS: Montelukast Sodium 10 mg Tablet PO SCH (20:56)
[2019-04-21] MEDS ORDERED: Torsemide 20 MG TAB PO SCH (21:00)
[2019-04-21] MEDS: Insulin Glargine 10 UNITS in Pre-Filled Syringe 1 EACH SC SCH (22:31)
[2019-04-21] MEDS: Melatonin 3 MG TAB PO PRN (22:31)
[2019-04-22 05:42] LABS: Anion Gap 11 mmol/L (10-20); BUN (Urea Nitrogen) 36 mg/dL (9.8-20.1); Calc. Creatinine Clearance 36 mL/min (70-130); Calcium 9.1 mg/dL (7.8-10.44); Carbon Dioxide 30 mmol/L (23-31); Chloride 101 mmol/L (98-107); Estimated GFR-MDRD 55; Glucose 110 mg/dL (83-110); Sodium 138 mmol/L (136-145)
[2019-04-22] MEDS: AMOXicillin 250 MG CAP PO SCH ×2 (06:29→14:56)
[2019-04-22] MEDS: traMADol HCl 50 MG TAB PO PRN ×3 (06:29→20:10)
[2019-04-22] MEDS: Levothyroxine Sodium 25 MCG TAB PO SCH (06:30)
[2019-04-22] MEDS: Levothyroxine Sodium 112 MCG TAB PO SCH (06:30)
[2019-04-22] MEDS ORDERED: Lidocaine 5% Patch TD SCH ×2 (09:00→19:00)
[2019-04-22] MEDS ORDERED: Torsemide 20 MG TAB PO SCH (09:00)
[2019-04-22] MEDS ORDERED: Levothyroxine 150 MCG TAB PO SCH (09:00)
[2019-04-22] MEDS: Gabapentin 300 MG CAP PO SCH ×3 (10:35→20:10)
[2019-04-22] MEDS: Isosorbide Dinitrate 5 MG TAB PO SCH ×2 (10:36→20:10)
[2019-04-22] MEDS: Aspirin 81 mg Enteric Coated Tablet PO SCH (10:36)
[2019-04-22] MEDS: Metolazone 5 MG TAB PO SCH (10:36)
[2019-04-22] MEDS: Magnesium Oxide 400 MG TAB PO SCH ×2 (10:37→20:11)
[2019-04-22] MEDS: Multivit, Therapeutic 1 TAB PO SCH (10:37)
[2019-04-22] MEDS: Lubiprostone 24 MCG CAP PO SCH ×2 (10:37→17:45)
[2019-04-22] MEDS: Potassium Chloride 20 MEQ TAB PO SCH (10:37)
[2019-04-22] MEDS: Famotidine/PF 20 mg/2ml Vial SLOW IVP SCH (10:38)
[2019-04-22] MEDS: Apixaban 5 MG TAB PO SCH ×2 (10:38→20:11)
[2019-04-22] MEDS: Amiodarone 200 MG TAB PO SCH (10:38)
[2019-04-22] MEDS: Pantoprazole 40 MG GRANULES PACKET PO SCH (10:39)
[2019-04-22 10:58] LABS: Anion Gap 15 mmol/L (10-20); BUN (Urea Nitrogen) 30 mg/dL (9.8-20.1); Calc. Creatinine Clearance 39 mL/min (70-130); Calcium 9.3 mg/dL (7.8-10.44); Carbon Dioxide 26 mmol/L (23-31); Chloride 99 mmol/L (98-107); Estimated GFR-MDRD 59; Glucose 179 mg/dL (83-110); Potassium 4.1 mmol/L (3.5-5.1); Sodium 136 mmol/L (136-145)
[2019-04-22] MEDS: HumaLOG 300 UNITS/3 ML VIAL SC PRN (11:20)
--- NOTE | 2019-04-22 12:03 | PRG ---
DATE OF SERVICE: 04/22/2019 SUBJECTIVE: The patient is seen and examined at bedside. She seems to be doing somewhat better, although she still is somewhat restless. She is getting ready to have echocardiogram done. OBJECTIVE: VITAL SIGNS: Blood pressure is 111/53, pulse is 71, temperature is 97.5, respiratory rate is 18, O2 saturation is 98% on room air. HEENT: Head is atraumatic and normocephalic. Pupils are responding to light properly. Sclerae are nonicteric. Oral mucosa is moist. NECK: Supple. LUNGS: Breath sounds somewhat diminished at both bases with few crackles bilaterally at both bases. HEART: S1 and S2 normal. No S3 no S4. There is a 1+ systolic murmur audible in all precordium. ABDOMEN: Soft, nontender. EXTREMITIES: No clubbing or cyanosis. There is 1+ peripheral edema. She has multiple areas of tophi on her fingers and severe osteoarthritic changes in interphalangeal joints. NEUROLOGIC: She follows my commands. She moves all 4 extremities. LABORATORY DATA: Normal electrolytes, BUN of 30, creatinine 0.91, glucose 179, calcium 9.3. Uric acid is 11. ESR is 35. IMPRESSION: 1. Shortness of breath. Congestive heart failure is suspected as a cause of her dyspnea. This is improved. She is on small dose of torsemide. 2. 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 The patient is started on allopurinol 100 mg twice a day. 3. Renal insufficiency. 4. Type 2 diabetes mellitus. 5. Paroxysmal atrial fibrillation. 6. Hypertension. 7. Severe aortic stenosis. 8. Coronary artery disease. 9. Hyperlipidemia. 10. Hypertension. 11. History of cerebrovascular accident in November 2018. 12. Severe osteoarthritis. PLAN: We are awaiting for echocardiogram to be done. We will continue her diuresis. I will start her on allopurinol. Her sedimentation rate is acceptable for her age. We will continue her Accu-Cheks, and we will continue PT and OT. Job ID: [id number]
[2019-04-22] MEDS: Torsemide 20 MG TAB PO SCH (20:10)
[2019-04-22] MEDS: Melatonin 3 MG TAB PO PRN (20:10)
[2019-04-22] MEDS: Montelukast Sodium 10 mg Tablet PO SCH (20:10)
[2019-04-22] MEDS: Allopurinol 100 MG TAB PO SCH (20:10)
[2019-04-22] MEDS: Atorvastatin Calcium 40 MG TAB PO SCH (20:11)
[2019-04-22] MEDS: Insulin Glargine 10 UNITS in Pre-Filled Syringe 1 EACH SC SCH (21:15)
[2019-04-22] MEDS: Acetaminophen 500 MG TAB PO PRN (21:27)
[2019-04-22] MEDS ORDERED: Nystatin Powder 15 GM BOT TOP PRN (22:55)
[2019-04-22] MEDS ORDERED: Loperamide HCl 2 MG CAP PO PRN (22:55)
[2019-04-23] MEDS: traMADol HCl 50 MG TAB PO PRN ×4 (00:41→14:23)
[2019-04-23] MEDS: Acetaminophen 500 MG TAB PO PRN (03:25)
[2019-04-23 03:43] LABS: Hemoglobin 10.2 g/dL (12.0-16.0); Platelet Count 276 thou/uL (130-400)
[2019-04-23] MEDS: Levothyroxine Sodium 25 MCG TAB PO SCH (05:31)
[2019-04-23] MEDS: Levothyroxine Sodium 112 MCG TAB PO SCH (05:31)
[2019-04-23] MEDS ORDERED: Lidocaine Patch Removal 1 EACH TOP SCH (07:00)
[2019-04-23] MEDS ORDERED: Saccharomyces boulardii 250 MG CAP PO SCH (09:00)
[2019-04-23] MEDS: Magnesium Oxide 400 MG TAB PO SCH (09:41)
[2019-04-23] MEDS: Apixaban 5 MG TAB PO SCH (09:42)
[2019-04-23] MEDS: Potassium Chloride 20 MEQ TAB PO SCH (09:42)
[2019-04-23] MEDS: Aspirin 81 mg Enteric Coated Tablet PO SCH (09:42)
[2019-04-23] MEDS: Isosorbide Dinitrate 5 MG TAB PO SCH (09:42)
[2019-04-23] MEDS: Amiodarone 200 MG TAB PO SCH (09:42)
[2019-04-23] MEDS: Metolazone 5 MG TAB PO SCH (09:42)
[2019-04-23] MEDS: Lubiprostone 24 MCG CAP PO SCH (09:42)
[2019-04-23] MEDS: Torsemide 20 MG TAB PO SCH (09:42)
[2019-04-23] MEDS: Pantoprazole 40 MG GRANULES PACKET PO SCH (09:43)
[2019-04-23] MEDS: Allopurinol 100 MG TAB PO SCH (09:43)
[2019-04-23] MEDS: Multivit, Therapeutic 1 TAB PO SCH ×2 (09:43→10:47)
[2019-04-23] MEDS: Gabapentin 300 MG CAP PO SCH ×2 (09:43→15:58)
[2019-04-23] MEDS: Famotidine/PF 20 mg/2ml Vial SLOW IVP SCH (09:43)
[2019-04-23] MEDS: HumaLOG 300 UNITS/3 ML VIAL SC PRN (10:49)
[2019-04-23 11:13] VITALS: TEMP 97.6
[2019-04-23 15:44] VITALS: BP 120/59
--- NOTE | 2019-04-26 06:00 | PQF ---
[employer] Nursery Technician Crystal Reports Winform ViewerPLANTT,DAVID BOWEN DYLON RODRIGUEZ MD [id number] [facility]-269 [id number] CLINICAL DOCUMENTATION CLARIFICATION FORM: POST DISCHARGE Addendum to original discharge summary date: ____ Late entry note date: __ DATE:04-26-2019 ATTN:Toi Hassan Please exercise your independent, professional judgment in responding to the clarification form. Clinical indicators are provided on the bottom of this form for your review Based on your clinical judgment kindly clarify the type and acuity of the patients CHF. Please check appropriate box(s): A. TYPE: [ ] Systolic / HFrEF [ ] Diastolic / HFpEF [ ] Combined Systolic / Diastolic B. ACUITY [ ] Acute [ ] Acute on Chronic [ ] Chronic [ ] Other diagnosis please specify: [ ] Unable to determine In addition, please specify: Present on Admission (POA): [ ] Yes [ ] No [ ] Unable to determine For continuity of documentation, please document condition throughout progress notes and discharge summary. Thank You. CLINICAL INDICATORS: ED 04/22 pg1 Chief complaint: Patient presents for evaluation of chest pain HP 04/[address] Ng She had stated she was feeling SOB and experiencing heavy chest pain HP 04/[address] Ng Chest Xray with no evidence of acute pulmonary process HP 04/[address] Ng EKG showing normal sinus rhythm with first degree AV block HP 04/[address] Ng EF of 55% to 60 %. Noted to have severe mitral annular calcification, severe aortic stenosis, severely thickened trileflet aortic valve with decreased excursion PN 04/[address] Israel SOB- I suspect that this is a congestive heart failure with elevated BNP Laboratory- BNP:525.6 H (04-20-19) PN 04/[address] Israel EXTERMITIES: 1+ peripheral edema similar bilaterally RISKS: HP 04/20Dr. Ng type II DM HP 04/20Dr. Ng- Paroxysmal Afib HP 04/20Dr. Ng-Hypertension HP 04/20Dr. Ng- CKD HP 04/20Dr. Ng-CAD HP 04/20Dr. Ng- History of CVA HP 04/20Dr. Ng- 83 years old woman TREATMENTS: Imaging 04/20- Chest Xray Imaging 04/20- Echocardiogram MAR 04/22- Torsemide 20 mg PO daily OCT 28- Amiodarone 200 mg PO daily (This form is maintained as a part of the permanent medical record) 2014 [employer], [employer]. All Rights Reserved [email or web address] [not provided] MTDD
== END 2019-04-23 15:10 | DRG 292 ==
LOC: ERS 10:07 → ERHOLD 12:45 → 2NO 13:21 → OBSVTOIN 04-22 12:08
PROVIDERS: ADMIT Internal Medicine; ATTEND Internal Medicine
DX: I13.0 Hypertensive heart and chronic kidney disease with heart failure and stage 1 through stage 4 chronic kidney disease, or unspecified chronic kidney disease (principal); I69.954 Hemiplegia and hemiparesis following unspecified cerebrovascular disease affecting left non-dominant side; I25.10 Atherosclerotic heart disease of native coronary artery without angina pectoris; I50.9 Heart failure, unspecified; E78.5 Hyperlipidemia, unspecified; M19.90 Unspecified osteoarthritis, unspecified site; F03.90 Unspecified dementia, unspecified severity, without behavioral disturbance, psychotic disturbance, mood disturbance, and anxiety; I44.0 Atrioventricular block, first degree; M40.209 Unspecified kyphosis, site unspecified; I35.0 Nonrheumatic aortic (valve) stenosis; E03.9 Hypothyroidism, unspecified; E11.22 Type 2 diabetes mellitus with diabetic chronic kidney disease; E87.6 Hypokalemia; I07.1 Rheumatic tricuspid insufficiency; I48.0 Paroxysmal atrial fibrillation; M10.9 Gout, unspecified; N18.9 Chronic kidney disease, unspecified; Z89.422 Acquired absence of other left toe(s); Z79.82 Long term (current) use of aspirin; Z90.49 Acquired absence of other specified parts of digestive tract; Z90.710 Acquired absence of both cervix and uterus; Z79.899 Other long term (current) drug therapy; Z79.4 Long term (current) use of insulin; Z79.01 Long term (current) use of anticoagulants; I69.920 Aphasia following unspecified cerebrovascular disease; G89.29 Other chronic pain; E11.51 Type 2 diabetes mellitus with diabetic peripheral angiopathy without gangrene; Z95.5 Presence of coronary angioplasty implant and graft; E83.42 Hypomagnesemia
CPT/HCPCS: 36415; 36416; 51701; 70450; 71045; 80048; 80053; 81003; 82565; 83690; 83735; 83880; 84484; 84550; 85014; 85018; 85025; 85049; 85652; 93005; 93306; 96365; 96366; 96367; A4353; J1815; J3475; J3480; S0028

== ENCOUNTER 2019-05-18 12:11 | Outpatient (CLI) | payer MEDICARE, BC ==
--- NOTE | 2019-05-18 12:52 | RAD ---
XR Abdomen 2 View HISTORY: Nausea vomiting and weight loss COMPARISON: None. FINDINGS: The bowel gas pattern appears nonobstructed. No signs of free air on the decubitus view. Beavers rgical clips in the right upper quadrant are consistent with prior cholecystectomy. A loop recorder device is seen. Extensive vascular calcifications are noted. There are arthritic changes of the lumbar spine with los s of vertebral body height of L1. Partial visualization it is seen of what appears to be a fractured intramedullary hailey of the right hi p with compression screw. This was present on at 11/20/2018 examination of the right hip. IMPRESSION: No acute findings.
== END 2019-05-18 12:12 | disposition home or self-care (01) ==
LOC: RAD 12:11
PROVIDERS: ATTEND Physician Assistant Medical
DX: R11.2 Nausea with vomiting, unspecified (principal); R63.4 Abnormal weight loss
CPT/HCPCS: 36415; 74019; 80053; 81001; 82150; 83690; 85025; 87086

== ENCOUNTER 2019-05-23 10:28 | Emergency (ER) | payer MEDICARE, BC ==
--- NOTE | 2019-05-23 11:52 | CT ---
CT HEAD WITHOUT CONTRAST: Date: 05/23/19 INDICATION: Fall with injury to head. Comparison made to head CT of 04/20/19. FINDINGS: Cortical atrophy again noted. Encephalomalacia involving the left occipital lobe again noted. No evid ence of intracranial hemorrhage. No mass or acute infarct. Sinuses and mastoids are aerated. IMPRESSION: No acute process. POS: [facility]
== END 2019-05-23 12:20 | disposition home or self-care (01) ==
LOC: ERS 10:28
DX: S41.112A Laceration without foreign body of left upper arm, initial encounter (principal); S41.111A Laceration without foreign body of right upper arm, initial encounter; S51.012A Laceration without foreign body of left elbow, initial encounter; S61.512A Laceration without foreign body of left wrist, initial encounter; S09.90XA Unspecified injury of head, initial encounter; I48.91 Unspecified atrial fibrillation; I25.10 Atherosclerotic heart disease of native coronary artery without angina pectoris; I11.0 Hypertensive heart disease with heart failure; I50.9 Heart failure, unspecified; E78.5 Hyperlipidemia, unspecified; Z79.899 Other long term (current) drug therapy; Z79.82 Long term (current) use of aspirin; Z79.01 Long term (current) use of anticoagulants; Z79.4 Long term (current) use of insulin; W22.8XXA Striking against or struck by other objects, initial encounter
CPT/HCPCS: 70450; 81001; 87086